=== PATIENT | female | born 1960 | race Caucasian/White ===

== ENCOUNTER 2017-02-20 18:06 | Inpatient (IN) | payer MEDICAID, OTHER ==
[2017-02-20 18:35] LABS: Glucose,Whole Blood 264 mg/dL (75-99)
--- NOTE | 2017-02-20 19:08 | ED ---
Psych HPI - General Chief Complaint: Psychiatric Symptoms Stated Complaint: Mental Health Time Seen by Provider: 02/20/17 18:34 Source: patient, family Mode of arrival: ambulatory - History of Present Illness Initial Comments: This 56-year-old white female presents with her sister for psychiatric evaluation. She barely does have a history of bipolar disorder as well as personality disorder. She apparently stopped her medications recently. The patient states she stopped them 2 days ago but her sister is the reliable historian and is unsure how long she has been off the medications. She apparently moved back to this area approximately one month ago. She's been having some extremely bizarre behavior recently. She is talking about love and spiritual this quite frequently. She apparently was having some bizarre thoughts and behaviors. She denies any suicidal or homicidal ideations. She denies any current depression. She does not feel as though she needs her medications anymore. No other complaints or modifying factors. - Related Data Home Medications Medication Instructions Recorded Confirmed Simvastatin 20 mg PO DAILY 05/09/15 05/09/15 Previous Rx's Medication Instructions Recorded Donepezil [Aricept] 5 mg PO HS #14 tab 05/10/15 Ensure Complete 1 can PO BID-W/MEALS #14 can 05/10/15 Escitalopram [Lexapro] 10 mg PO DAILY #14 tab 05/10/15 Ibuprofen [Motrin] 600 mg PO Q6HR PRN #20 tab 05/10/15 Multivitamins, Thera [Multivitamin 1 each PO DAILY@1200 #30 tab 05/10/15 (formulary)] Simvastatin [Zocor] 20 mg PO HS #14 tab 05/10/15 Thiamine [Vitamin B-1] 100 mg PO DAILY@1200 #30 tab 05/10/15 chlorproMAZINE [Thorazine] 25 mg PO BID@0800,1200 #28 tab 05/10/15 chlorproMAZINE [Thorazine] 100 mg PO HS #14 dose 05/10/15 clonazePAM [KlonoPIN] 2 mg PO DAILY@1900 #14 tab 05/10/15 Allergies Allergy/AdvReac Type Severity Reaction Status Date / Time No Known Allergies Allergy Verified 02/20/17 18:22 Review of Systems ROS Statement: Those systems with pertinent positive or pertinent negative responses have been documented in the HPI. ROS Other: All systems not noted in ROS Statement are negative. Past Medical History Past Medical History: Hyperlipidemia Additional Past Medical History / Comment(s): depression , pancreatitis History of Any Multi-Drug Resistant Organisms: None Reported Past Surgical History: Appendectomy Additional Past Surgical History / Comment(s): neck Past Psychological History: Bipolar, Depression, PTSD Smoking Status: Current every day smoker Past Alcohol Use History: None Reported Past Drug Use History: Marijuana - Past Family History Father Family Medical History: Liver Disease Additional Family Medical History / Comment(s): Father at age 78 from cirrhosis of the liver. Mother Additional Family Medical History / Comment(s): Mother is alive in her 80s and is healthy with no major medical problems. Sister(s) Additional Family Medical History / Comment(s): Patient has 2 sisters and one has from an overdose. She has 1 brother with no major medical problems. General Exam - General Exam Comments Initial Comments: GENERAL: The patient is well nourished and well hydrated. VITAL SIGNS: Heart rate, blood pressure, respiratory rate reviewed as recorded in nurse's notes. EYES: Pupils are round and reactive. Extraocular movements are intact. No conjunctival / lid redness or swelling. ENT: No external evidence of injury, swelling, or ecchymosis. Airway is patent. Throat is clear. NECK: Nontender. No swelling or evidence of injury. No subcutaneous emphysema. Trachea is midline. No thyroid mass. HEART: Regular rate and rhythm. Good peripheral pulses. LUNGS/CHEST: Breath sounds clear and equal bilaterally. No rales, rhonchi, or wheezes. No ecchymosis, subcutaneous emphysema, or tenderness. ABDOMEN: Abdomen soft without tenderness. No palpable masses or organomegaly. No peritoneal signs. No abdominal wall swelling or ecchymosis. EXTREMITIES: No extremity tenderness. Normal muscle tone and function. No thoracolumbar tenderness. NEUROLOGIC: Sensation is grossly intact. Cranial nerve exam reveals face is symmetrical, tongue is midline, speech is clear. SKIN: No abrasions or ecchymosis is noted. No induration or masses noted. PSYCHIATRIC: Alert and oriented. No overt anxiety or depression is noted. Patient has some bizarre thought processes. Limitations: no limitations Course Vital Signs 02/20/17 18:18 Temperature 98.2 F Pulse Rate 107 H Respiratory 20 Rate Blood Pressure 149/87 O2 Sat by Pulse 96 Oximetry Medical Decision Making - Medical Decision Making The patient was seen and examined. All diagnostics were reviewed. Is felt as though she is medically cleared for further psychiatric evaluation. It is felt as though she is currently undergoing a manic phase of her bipolar disorder likely due to medication noncompliance. - Lab Data Lab Results 02/20/17 02/20/17 Range/Units 18:32 19:23 POC Glucose (mg/dL) 264 H (75-99) mg/dL POC Glu [employer] ID Urine Opiates Screen Not Detected (NotDetected) Ur Oxycodone Screen Not Detected (NotDetected) Urine Methadone Screen Not Detected (NotDetected) Ur Propoxyphene Screen Not Detected (NotDetected) Ur Barbiturates Screen Not Detected (NotDetected) U Tricyclic Antidepress Not Detected (NotDetected) Ur Phencyclidine Scrn Not Detected (NotDetected) Ur Amphetamines Screen Not Detected (NotDetected) U Methamphetamines Scrn Not Detected (NotDetected) U Benzodiazepines Scrn Detected H (NotDetected) Urine Cocaine Screen Not Detected (NotDetected) U Marijuana (THC) Screen Not Detected (NotDetected) Disposition Clinical Impression: Bipolar disorder, Noncompliance with medication regimen, Giuliana Disposition: ADMITTED IP TO THIS [facility] Condition: Fair Time of Disposition: 01:06 Decision Date: 02/21/17 Decision Time: 01:06
[2017-02-20] MEDS ORDERED: LORazepam 2 MG/ML SYRINGE IV STA (21:14)
[2017-02-20] MEDS ORDERED: MAG HYDROX/AL HYDROX/SIMETH 30 ML CUP PO PRN (22:25)
[2017-02-20 22:55] LABS: Glucose,Whole Blood 209 mg/dL (75-99)
[2017-02-21] MEDS: ZIPRASIDONE 20 MG VIAL IM PRN (01:45)
[2017-02-21 06:49] LABS: Glucose,Whole Blood 237 mg/dL (75-99)
[2017-02-21] MEDS: INSULIN LISPRO (humaLOG) 300 UNIT/3 ML VIAL SQ SCH ×4 (08:50→20:40)
[2017-02-21 09:31] LABS: Basophils # (A) 0.1 k/uL (0-0.2); Basophils % (A) 1 %; CH 31.4; CHCM 33.5; Eosinophils # (A) 0.3 k/uL (0-0.7); Eosinophils % (A) 3 %; HCT 42.2 % (34.0-46.0); HDW 2.71; HGB 13.6 gm/dL (11.4-16.0); Luc # (Auto) 0.32; Luc % (Auto) 3; Lymphocytes # (A) 3.9 k/uL (1.0-4.8); Lymphocytes % (A) 35 %; MCH 30.3 pg (25.0-35.0); MCHC 32.1 g/dL (31.0-37.0); MCV 94.3 fL (80.0-100.0); Mean Platelet Volume 8.4; Monocytes # (A) 0.4 k/uL (0-1.0); Monocytes % (A) 4 %; Neutrophils % (A) 54 %; RBC 4.48 m/uL (3.80-5.40); RDW 14.5 % (11.5-15.5); WBC 11.1 k/uL (3.8-10.6); WBC (Perox) 11.02
[2017-02-21 09:55] LABS: ALT 34 U/L (9-52); AST 22 U/L (14-36); Alkaline Phosphatase 76 U/L (38-126); Anion Gap 12 mmol/L; Blood Urea Nitrogen 14 mg/dL (7-17); Calcium 9.8 mg/dL (8.4-10.2); Carbon Dioxide 23 mmol/L (22-30); Chloride 105 mmol/L (98-107); Glucose 194 mg/dL (74-99); Non-African American GFR(MDRD) >60 (>60 ml/min/1.73 sqM); Potassium 4.1 mmol/L (3.5-5.1); Sodium 140 mmol/L (137-145); Total Bilirubin 0.4 mg/dL (0.2-1.3); Total Protein 6.8 g/dL (6.3-8.2)
[2017-02-21 12:22] LABS: Hemoglobin A1C 10.8 % (4.2-6.1)
[2017-02-21] MEDS: OLANZapine 10 MG TAB PO SCH ×2 (13:00→20:40)
[2017-02-21 14:08] LABS: Glucose,Whole Blood 184 mg/dL (75-99)
--- NOTE | 2017-02-21 15:33 | P.HPMEDMHU ---
History of Present Illness H&P Date: 02/21/17 Chief Complaint: confusion Patient is a 56-year-old female with a past medical history of high blood pressure (not taking medication), diabetes mellitus type 2 (not taking medications), and dyslipidemia who was brought to the emergency department by her sister for sedation pediatric evaluation and hallucination. Consultation was requested to evaluate patient's blood sugars. Patient states that she has a history of diabetes but no longer takes anything for this. She states that she has trying "natural things" in order to treat all of her medical problems. She tells me that she is eating potatoes with coconut butter and using honey in order to combat her diabetes. I explained her that all of these items have carbs in them and would likely worsen her blood sugars. She also states that she has a history of a TIA hypertension and dyslipidemia but she is not taking medications for these. As per the chart she is taking [place], lactulose, Lantus, and Lipitor at home. Activity she denies any alcohol or illicit drug use. She states everything was fine at home and she is not sure why she is here. Review of Systems General: no fever/chills, no rigors, no weight loss/weight gain, no change in appetite Eyes: No double vision, no unusual blurry vision, no loss of vision ENT: No rhinorrhea, congestion, no trush Cardiovascular: No chest pain, no palpitations, no syncope, no edema, No paroxysmal nocturnal dyspnea, No dizziness Pulmonary: No shortness of breath, no wheezing, no cough, hemoptysis Abdominal: No abdominal pain, no constipation, no diarrhea, no vomiting, no nausea, no distention Genitourinary: No dysuria, no urinary frequency, no hematuria, no unusual discharge/odor Neuro: No unusual paresthesias, no unusual paresis/paralysis, no headache Dermatologic: No unusual rashes, no unusual lesions, no unusual changes in nails Endocrinology: No intolerance to heat/cold, no excessive thirst, no unusual fatigue Hematologic: No unusual bruising or bleeding, no unusual cervical lymphadenopathy Psychiatric: No changes in mood or behaviors, + insomnia Review of system is as per patient who is a poor historian. Past Medical History Past Medical History: CVA/TIA, Diabetes Mellitus, Hyperlipidemia Additional Past Medical History / Comment(s): depression , Chronic pancreatitis History of Any Multi-Drug Resistant Organisms: None Reported Past Surgical History: Appendectomy Additional Past Surgical History / Comment(s): neck Past Psychological History: Bipolar, Depression, PTSD Smoking Status: Unknown if ever smoked Past Alcohol Use History: None Reported Additional Past Alcohol Use History / Comment(s): Patient is a smoker of one pack per day for 30 or more years. She states she binge drinks alcohol on the weekends. She denies street drug use other than THC. Patient is single. She has one daughter that is 32 years of age. Past Drug Use History: Marijuana - Past Family History Father Family Medical History: Liver Disease Additional Family Medical History / Comment(s): Father at age 78 from cirrhosis of the liver. Mother Additional Family Medical History / Comment(s): Mother is alive in her 80s Sister(s) Family Medical History: Coronary Artery Disease (CAD), Diabetes Mellitus Additional Family Medical History / Comment(s): Patient has 2 sisters and one has from an overdose. She has 1 brother with no major medical problems. Medications and Allergies Home Medications Medication Instructions Recorded Confirmed Type Atorvastatin [Lipitor] 10 mg PO HS 02/21/17 02/21/17 History HYDROcodone/APAP 5-325MG [[place] 1 tab PO TID PRN 02/21/17 02/21/17 History 5-325] Insulin Glargine [Lantus] 10 units SQ DAILY 02/21/17 02/21/17 History Lactulose [Lactulose] 20 gm PO DAILY PRN 02/21/17 02/21/17 History Allergies Allergy/AdvReac Type Severity Reaction Status Date / Time No Known Allergies Allergy Verified 02/20/17 18:22 Physical Exam Osteopathic Statement: *. No significant issues noted on an osteopathic structural exam other than those noted in the History and Physical/Consult. Vitals: Vital Signs Temp Pulse Pulse Resp BP BP Pulse Ox 02/21/17 00:58 97.1 F L 105 H 18 125/74 02/20/17 21:45 98.3 F 94 18 143/83 99 02/20/17 18:18 98.2 F 107 H 20 149/87 96 Intake and Output 02/20/17 02/21/17 02/21/17 22:59 06:59 14:59 Other: Weight 63.503 kg 63.5 kg General: non toxic, no distress, appears at stated age, Normal weight Derm: no rashes, no lesions, no ulcers, no unusual ecchymoses Head: atraumatic, normocephalic, symmetric Eyes: EOMI, no lid lag, anicteric sclera, pupils equal round reactive to light ENT: no post nasal drip, no thrush , nearest patent, no pharyngeal erythema Neck: No thyromegaly, no cervical lymphadenopathy, trachea midline, supple Mouth: no lip lesion, mucus membranes moist Cardiovascular: S1S2 reg, no murmur, positive posterior tibial pulse bilateral, no edema , no JVD, no clubbing, no cyanosis, capillary refill less than 2 seconds Lungs: CTA bilateral, no rhonchi, no rales , no accessory muscle use Abdominal: soft, nontender to palpation, no guarding, no appreciable organomegaly, normal bowel sounds Ext: no gross muscle atrophy, muscle strength 5 out of 5 in all 4 extremities grossly, no contractures, Neuro: CN II-XI grossly intact, light touch intact all 4 extremities, finger to nose within normal limits, Psych: Alert, oriented, anxious, angry Cranial Nerve Examination - Cranial Nerves Cranial Nerve II- Optic: Intact Cranial Nerve III- Oculomotor: Intact Cranial Nerve IV- Trochlear: Intact Cranial Nerve V- Trigeminal: Intact Cranial Nerve - Abducens: Intact Cranial Nerve VII- Facial: Intact Cranial Nerve VIII- Auditory: Intact Cranial Nerve IX- Glossopharyngeal: Intact Cranial Nerve X- Vagus: Intact Cranial Nerve XI- Accessory: Intact Cranial Nerve XII- Hypoglossal: Intact Results CBC & Chem 7: 02/21/17 08:57 02/21/17 08:57 Labs: Abnormal Lab Results - Last 24 Hours (Table) 02/20/17 02/20/17 02/20/17 Range/Units 18:32 19:23 22:52 WBC (3.8-10.6) k/uL Glucose (74-99) mg/dL POC Glucose (mg/dL) 264 H 209 H (75-99) mg/dL U Benzodiazepines Scrn Detected H (NotDetected) 02/21/17 02/21/17 02/21/17 Range/Units 06:48 08:57 08:57 WBC 11.1 H (3.8-10.6) k/uL Glucose 194 H (74-99) mg/dL POC Glucose (mg/dL) 237 H (75-99) mg/dL U Benzodiazepines Scrn (NotDetected) Assessment and Plan Plan: #Diabetes mellitus type 2-patient states diet controlled, per the nurses was recently diagnosed and she was started on insulin, patient is refusing to take insulin on a long-term basis, will do a trial of metformin despite her hemoglobin A1c being 10.8 and is it will not benefit her to prescribe insulin if she refuses to take it. Continue with sliding scale insulin in the meantime. #Hypertension, controlled-was not on medications at home, follow blood pressures #Leukocytosis-check urinalysis, no signs of pneumonia, repeat CBC in 2 days #Dyslipidemia-continue statin therapy # Chronic pancreatitis- may have chronic diarrhea if so will need pancreatic enzymes Will plan on reviewing blood sugars in the morning and reevaluating the patient as needed. Zita Urena, DO
[2017-02-21 17:07] LABS: Glucose,Whole Blood 344 mg/dL (75-99)
[2017-02-21] MEDS: metFORMIN 500 MG TAB PO SCH (18:13)
[2017-02-21 20:26] LABS: Glucose,Whole Blood 138 mg/dL (75-99)
[2017-02-21] MEDS: INSULIN DETEMIR 100 UNIT/ML 10 ML VIAL SQ SCH ×2 (20:39→22:05)
[2017-02-22] MEDS ORDERED: WATER FOR INJECTION, STERILE 10 ML IV ONE (01:25)
[2017-02-22] MEDS: ZIPRASIDONE 20 MG VIAL IM PRN (01:26)
[2017-02-22 06:00] LABS: Glucose,Whole Blood 194 mg/dL (75-99)
[2017-02-22] MEDS: INSULIN LISPRO (humaLOG) 300 UNIT/3 ML VIAL SQ SCH ×4 (08:13→20:17)
[2017-02-22] MEDS: OLANZapine 10 MG TAB PO SCH ×4 (08:13→20:23)
[2017-02-22] MEDS: metFORMIN 500 MG TAB PO SCH ×3 (08:13→19:05)
[2017-02-22] MEDS: ACETAMINOPHEN TAB 325 MG TAB PO PRN ×2 (09:10→20:20)
[2017-02-22] MEDS: LORazepam 1 MG TAB PO PRN ×3 (09:12→23:26)
[2017-02-22 09:23] LABS: CH 30.4; CHCM 33.4; HCT 40.8 % (34.0-46.0); HDW 2.66; HGB 13.7 gm/dL (11.4-16.0); MCH 30.6 pg (25.0-35.0); MCHC 33.5 g/dL (31.0-37.0); MCV 91.5 fL (80.0-100.0); RBC 4.46 m/uL (3.80-5.40); RDW 13.4 % (11.5-15.5); WBC 11.9 k/uL (3.8-10.6)
[2017-02-22 12:03] LABS: Glucose,Whole Blood 268 mg/dL (75-99)
[2017-02-22] MEDS ORDERED: HALOPERIDOL LACTATE 5 MG/ML 1 ML VIAL IM STA (14:22)
[2017-02-22] MEDS ORDERED: LORazepam 2 MG/ML SYRINGE IM STA (14:23)
--- NOTE | 2017-02-22 16:33 | HP ---
HISTORY AND PHYSICAL DATE OF SERVICE: 02/21/2017. IDENTIFYING DATA: The patient is a 56-year-old female, she lives with her sister. She presented to the emergency room for evaluation. CHIEF COMPLAINT: The patient had disorganized thoughts and behaviors. She had high energy. She was acting in a bizarre manner. She made references to spiritual thoughts. She had a euphoric mood. HISTORY OF PRESENT ILLNESS: There is only limited information available. The patient provided most of her history though she was vague about the specifics. She noted that she had been living in [place] and moved back to [place] about 1 month ago. In part to connect with her mother who has Alzheimer's disease. She is residing in the home of her sister' s where her mother lives. Her daughter also lives in the home and the patient was somewhat vague about admission circumstances. When I shared with the patient information from the record and that the sister had presumably encouraged the hospitalization because of her odd disorganized behavior, the patient tended to minimize any issues. She does acknowledge that she has had a diagnosis of bipolar disorder. She said that she does have periods where she gets higher energy and a positive mood. She was vague about whether she gets abnormally euphoric or has other manic symptoms. She says she has been sleeping about 5 hours a night. She has not been on medications for 2 years. She said when she was living in [place], she felt that she was doing well from the standpoint of mental health issues. She was vague about whether not she has had significant past psychiatric intervention. She apparently had stopped taking medications in the last several days including an antidepressant Lexapro as well as medicines for her diabetes. She had acknowledged that she had stopped medications though she was vague about why she did that. According to emergency room records, she had been on Aricept 5 mg a day, Lexapro 10 mg a day, Thorazine 25 mg twice a day, 100 mg at bedtime and Klonopin 2 mg a day. It is not clear whether or not the patient was taking any of these medications since she has moved to [place]. She is admitted for further evaluation. Past medical history, review of systems and physical exam as per medical consultation Dr. López. FAMILY AND SOCIAL HISTORY: As above. MENTAL STATUS EXAM: Patient was somewhat unkempt in appearance. She had good eye contact. She was a little restless, clear. She was spontaneous and interactive. Her affect was somewhat broad. She had a mildly euphoric mood. She was appropriate in her manner and there was no indication of thought disorder. Other than she did make a number of spiritual references. She did not appear to be distressed. On cognitive exam, she was oriented x3 and alert. She did make an effort to answer formal cognitive questions. Short and long-term memory appear to be intact. Insight is questionable. Judgment uncertain. Fund of knowledge and intellectual level is average. ASSESSMENT: This 56-year-old female, who is admitted for a diagnosis of bipolar disorder. We are limited by a lack of medical records to clarify longer term psychiatric issues. Strengths include that the patient has apparently been able to manage her bipolar condition without significant episodes of regression. Weakness includes poor insight into her present situation. DIAGNOSES: 1. Bipolar affective disorder, manic phase. 2. Diabetes. 3. Hypertension. 4. Leukocytosis. 5. Dyslipidemia. 6. Rule out chronic pancreatitis. RECOMMENDATIONS: Patient will be admitted for comprehensive medical psychiatric and psychosocial evaluation. We will engage the patient in individual and group therapeutic activities I had extensive discussion with the patient regarding medication options. The patient was willing to start Zyprexa so we will initiate Zyprexa 10 mg twice a day. She has availability of p.r.n. medications. She did require IM medication on the evening of discharge due to agitation which she has not shown since. We will continue to focus on stabilization and discharge planning. MMTORYL / ALIRION: [id number] / MTDD
[2017-02-22 17:45] LABS: Glucose,Whole Blood 181 mg/dL (75-99)
[2017-02-22 20:10] LABS: Glucose,Whole Blood 240 mg/dL (75-99)
[2017-02-22] MEDS: INSULIN DETEMIR 100 UNIT/ML 10 ML VIAL SQ SCH (20:15)
[2017-02-22 23:18] LABS: Glucose,Whole Blood 210 mg/dL (75-99)
[2017-02-23 05:50] LABS: Glucose,Whole Blood 186 mg/dL (75-99)
[2017-02-23] MEDS: INSULIN LISPRO (humaLOG) 300 UNIT/3 ML VIAL SQ SCH ×4 (07:52→21:07)
[2017-02-23] MEDS: metFORMIN 500 MG TAB PO SCH ×2 (07:54→17:19)
[2017-02-23] MEDS: OLANZapine 10 MG TAB PO SCH ×3 (09:07→21:11)
--- NOTE | 2017-02-23 11:10 | PN ---
PROGRESS NOTE DATE OF SERVICE: 02/22/2017. INTERVAL HISTORY: Patient has been doing fair. She has exhibited significant manic symptoms. She slept poorly last night. Late at night she was up in the rios. She was quite loud. She was agitated. She was restless and she had difficulty responding to staff support. She did receive IM medication last night. She did respond appropriately to the medication. Today she has been up and about. She wanders. She gets intense in her manner. She is hyperverbal. She has had a couple situations on the unit were she got into some arguments with other patients. She has hit some sense of nonstop talking. She tends to have loose association. She does not talk in a rapid manner though she will just verbalize one thing or another in a persistent manner. She became increasingly distressed today and also received an injection of Haldol and Ativan. She seemed to respond fairly well to that. She has not had change in her general health. She tolerates her psychotropic medications. MENTAL STATUS: The patient gave fair eye contact. She was restless. Her thoughts were disorganized and at times, disconnected from the subject at hand. Her affect was intense. Her mood dysphoric. She was moderately distressed. ASSESSMENT AND PLAN: I will continue the current diagnosis and treatment plan. I will increase Zyprexa to 10 mg 3 times a day. We may need to consider addition of either lithium or Haldol. We will be making contact with the family to get further information about her longer-term history. I will continue to focus on stabilization and discharge planning. MARCOS / ALIRION: [id number] / GABBIE
[2017-02-23 12:22] LABS: Glucose,Whole Blood 188 mg/dL (75-99)
[2017-02-23] MEDS: ACETAMINOPHEN TAB 325 MG TAB PO PRN (14:34)
[2017-02-23] MEDS: LORazepam 1 MG TAB PO PRN (17:20)
[2017-02-23 17:23] LABS: Glucose,Whole Blood 175 mg/dL (75-99)
[2017-02-23 20:16] LABS: Glucose,Whole Blood 183 mg/dL (75-99)
[2017-02-23] MEDS: INSULIN DETEMIR 100 UNIT/ML 10 ML VIAL SQ SCH (21:08)
--- NOTE | 2017-02-24 05:40 | PN ---
PROGRESS NOTE DATE OF SERVICE: 02/23/2017 CHIEF COMPLAINT: The patient had disorganized thoughts and behavior. She had high energy. She was acting in a bizarre manner. She made references to spiritual thoughts. She had euphoric mood. INTERVAL HISTORY: Patient has been doing fair. She had some difficulties in her behavior yesterday where she was over energized, intrusive and intense in her manner. It is noteworthy that the night before she slept very poorly. She did receive p.r.n. IM medications yesterday. Last night, she slept better. Today she has been up and about. She attends some groups, but does not attend others. She will socialize with some other patients and seems to be comfortable with that. On the other, she has had a little more containment in some of her more intense behavior. She attends some groups though not others. She still can be somewhat obsessive and intense in her manner at times. She seems to be more redirectable. She was hopeful about being discharged soon such as today though when I indicated we would not be discharging her until sometime next week, she did not seem to have any resistance to that. She does understand we will be making reference to coordinate a family meeting with her sister which will be important part of her treatment. The patient was in agreement with that. She has not had change in her general health. She tolerates her psychotropic medications. MENTAL STATUS: Patient gave fair eye contact. She was restless. Her thoughts were clear. She did tend to ramble some. Her mood was mildly euphoric. Her affect expansive. She did not appear to be distressed. ASSESSMENT: I will continue the current diagnosis and treatment plan. I will continue psychotropic medications the same. Patient appears to be making some progress with reduction in manic behaviors and symptoms. We will continue to focus on stabilization and discharge planning. MMODL / IJN: [id number] /
[2017-02-24 06:25] LABS: Glucose,Whole Blood 179 mg/dL (75-99)
[2017-02-24] MEDS: OLANZapine 10 MG TAB PO SCH ×3 (08:38→20:06)
[2017-02-24] MEDS: INSULIN LISPRO (humaLOG) 300 UNIT/3 ML VIAL SQ SCH ×4 (08:38→20:08)
[2017-02-24] MEDS: metFORMIN 500 MG TAB PO SCH ×2 (08:38→17:35)
[2017-02-24 09:57] LABS: Appearance,Urine Clear (Clear); Bilirubin,Urine Negative (Negative); Glucose,Urine (UA) 4+ (Negative); Ketones,Urine Negative (Negative); Leukocyte Esterase,Urine Negative (Negative); Nitrite,Urine Negative (Negative); PH, Urine 6.5 (5.0-8.0); Protein,Urine Negative (Negative); Specific Gravity,Urine 1.005 (1.001-1.035); UA Billing (MACRO vs. MICRO) CHEM; Urobilinogen,Urine <2.0 mg/dL (<2.0)
[2017-02-24] MEDS: LITHIUM CARBONATE 300 MG CAP PO SCH ×2 (11:05→20:06)
[2017-02-24 12:51] LABS: Glucose,Whole Blood 178 mg/dL (75-99)
[2017-02-24] MEDS: LORazepam 1 MG TAB PO PRN (14:14)
--- NOTE | 2017-02-24 15:56 | PN ---
PROGRESS NOTE DATE OF SERVICE: 02/24/2017. CHIEF COMPLAINT: The patient had disorganized thoughts and behavior. She had high energy. She was acting in a bizarre manner. She made references to spiritual thoughts. She had euphoric mood. INTERVAL HISTORY: Patient has been doing fair. She only slept a few hours last night. She continues to be somewhat energetic and intense in her manner. She can be intrusive. Overall she does seem to be a little more contained in some of these behaviors. She does respond to staff support and redirection. She has some ups and downs in her mood. She was able to review some discharge planning issues. She continues to push towards the idea of early discharge though understands that she is likely to not be discharged until the middle of next week at the earliest. She states that she had been on lithium in the past though she was unable to give particulars about that. She has not had change in her general health. She tolerates the psychotropic medications. MENTAL STATUS: Patient gave good eye contact. She was restless. Her thoughts were clear, though she tended to ramble some. There was some pressured speech. She had a expansive affect. Her mood was mildly euphoric. It was difficult to say was distressed. ASSESSMENT: I will continue the current diagnosis and the treatment plan. I will start the patient on lithium 600 mg twice a day. Continue Zyprexa 10 mg 3 times a day. I will check a lithium level in 2 days. It is noted that her creatinine level on February 21 was 0.58. We will continue to focus on stabilization and discharge planning. MMTORYL / ALIRION: [id number] /
[2017-02-24 17:31] LABS: Glucose,Whole Blood 152 mg/dL (75-99)
[2017-02-24 20:03] LABS: Glucose,Whole Blood 258 mg/dL (75-99)
[2017-02-24] MEDS: INSULIN DETEMIR 100 UNIT/ML 10 ML VIAL SQ SCH (20:06)
[2017-02-24] MEDS: traZODone HCL 100 MG TAB PO SCH (21:43)
[2017-02-25 06:18] LABS: Glucose,Whole Blood 250 mg/dL (75-99)
[2017-02-25] MEDS: INSULIN LISPRO (humaLOG) 300 UNIT/3 ML VIAL SQ SCH ×4 (08:32→19:55)
[2017-02-25] MEDS: LITHIUM CARBONATE 300 MG CAP PO SCH ×2 (08:35→19:57)
[2017-02-25] MEDS: metFORMIN 500 MG TAB PO SCH ×2 (08:35→17:56)
[2017-02-25] MEDS: OLANZapine 10 MG TAB PO SCH ×3 (08:36→19:57)
[2017-02-25 11:11] LABS: Glucose,Whole Blood 339 mg/dL (75-99)
[2017-02-25 12:59] LABS: Glucose,Whole Blood 256 mg/dL (75-99)
--- NOTE | 2017-02-25 15:09 | PN ---
PROGRESS NOTE DATE OF SERVICE: 02/25/2017. CHIEF COMPLAINT: The patient had disorganized thoughts and behavior. She had high energy. She was acting in a bizarre manner. She made references to spiritual thoughts. She had euphoric mood. INTERVAL HISTORY: Patient has been doing fair. She reports that she slept better last night. She continues to be somewhat on edge where she can be fine one moment though easily get irritated. She declined her insulin on the sliding scale. Today she tells me that she thought she was only supposed to do one or the other. As far as metformin versus insulin. She had been advised in this matter each day previously that she had not been attending to her diabetes. Her blood sugar today was 250. She continues to be fairly impulsive and at times intrusive.. Her mood is somewhat more settled. She tolerates psychotropic medications. MENTAL STATUS: The patient gave good eye contact. She was restless. Her thoughts were clear. Her affect was intense. Her mood expansive. She was moderately distressed. ASSESSMENT: I will continue the current diagnosis treatment plan. She continues on Zyprexa and lithium for her bipolar juan. A lithium level will be drawn in the morning. She continues to be manic. We will continue to focus on stabilization and discharge planning. MMODL / IJN: [id number] /
[2017-02-25] MEDS: ACETAMINOPHEN TAB 325 MG TAB PO PRN (16:50)
[2017-02-25 17:42] LABS: Glucose,Whole Blood 148 mg/dL (75-99)
[2017-02-25 19:53] LABS: Glucose,Whole Blood 344 mg/dL (75-99)
[2017-02-25] MEDS: INSULIN DETEMIR 100 UNIT/ML 10 ML VIAL SQ SCH (19:54)
[2017-02-25] MEDS: traZODone HCL 100 MG TAB PO SCH (19:57)
[2017-02-25 21:00] LABS: Glucose,Whole Blood 250 mg/dL (75-99)
[2017-02-26] MEDS: ACETAMINOPHEN TAB 325 MG TAB PO PRN (04:05)
[2017-02-26 06:13] LABS: Glucose,Whole Blood 206 mg/dL (75-99)
[2017-02-26 07:02] VITALS: RESP 16
[2017-02-26] MEDS: INSULIN LISPRO (humaLOG) 300 UNIT/3 ML VIAL SQ SCH ×4 (08:27→20:32)
[2017-02-26] MEDS: OLANZapine 10 MG TAB PO SCH ×3 (08:28→21:02)
[2017-02-26] MEDS: LITHIUM CARBONATE 300 MG CAP PO SCH ×2 (08:28→20:35)
[2017-02-26] MEDS: metFORMIN 500 MG TAB PO SCH ×2 (08:28→17:47)
[2017-02-26 12:05] LABS: Glucose,Whole Blood 110 mg/dL (75-99)
--- NOTE | 2017-02-26 16:13 | PN ---
PROGRESS NOTE/TRANSFER NOTE DATE OF SERVICE: 02/26/2017. CHIEF COMPLAINT: The patient had disorganized thoughts and behavior. She had high energy. She was acting in a bizarre manner. She made references to spiritual thoughts. She had euphoric mood. SUMMARY: The patient was admitted for manic symptoms, which included things like not taking medicines for her diabetes. Her sister petitioned her for hospitalization. Her sister is her primary support. At the time of discharge this sister has agreed that she could come and live with the sister for about 3 days but then would need to find alternative housing. The patient has been improving in regards to juan. Blood sugars continued to fluctuate. She may be able to be discharged by the end of the week. A plan is in place to have a another family meeting with the sister as part of discharge planning. INTERVAL HISTORY: The patient has been doing fair. She seems to be gradually doing better in terms of her manic symptoms. She continues to be intrusive and somewhat active on the unit. Overall this is better. She is a little calmer, though she still can be fairly intense in her manner. She is very focused on when she can be discharged and we will have the expectation that she can be discharged on any day. This is in spite of the fact that she continues to show some manic symptoms. Also this morning her blood sugar at 4 a.m. was 206, yesterday at midnight it was 250 and yesterday at 4 p.m. it was 344. She has not had other change in her general health. She tolerates psychotropic medications. [place] had been recently added to her medication regimen and needs to be monitored for lithium levels. MENTAL STATUS: Patient gave good eye contact. She was a little restless. Her thoughts were clear. She was interactive. Her affect was somewhat intense. Her mood was mildly euphoric. She was not distressed. There was no indication of thought disorder. ASSESSMENT: Continue the current diagnosis and treatment plan. We will continue psychotropic medications the same. I have just initiated lithium in addition to her Zyprexa for bipolar disorder. Her lithium level today is 1.0, I will repeat a lithium level for tomorrow. We will continue to focus on stabilization and discharge planning, aiming for discharge by the end of the week. MMODL / IJN: [id number] / [facility]
[2017-02-26 17:33] LABS: Glucose,Whole Blood 263 mg/dL (75-99)
[2017-02-26 20:13] LABS: Glucose,Whole Blood 257 mg/dL (75-99)
[2017-02-26] MEDS: INSULIN DETEMIR 100 UNIT/ML 10 ML VIAL SQ SCH (20:32)
[2017-02-26] MEDS: traZODone HCL 100 MG TAB PO SCH (20:35)
[2017-02-26] MEDS: MAGNESIUM HYDROXIDE 2,400 MG/10 ML CUP PO PRN (21:02)
[2017-02-26] MEDS ORDERED: INSULIN DETEMIR 100 UNIT/ML 10 ML VIAL SQ ONE (21:45)
[2017-02-26 22:08] LABS: Glucose,Whole Blood 117 mg/dL (75-99)
[2017-02-27 05:26] LABS: Glucose,Whole Blood 164 mg/dL (75-99)
[2017-02-27] MEDS: INSULIN LISPRO (humaLOG) 300 UNIT/3 ML VIAL SQ SCH ×4 (07:42→21:27)
[2017-02-27] MEDS: MAGNESIUM HYDROXIDE 2,400 MG/10 ML CUP PO PRN ×2 (07:46→16:04)
[2017-02-27] MEDS: metFORMIN 500 MG TAB PO SCH ×2 (07:46→17:38)
[2017-02-27] MEDS: OLANZapine 10 MG TAB PO SCH ×3 (08:51→21:27)
[2017-02-27] MEDS: LITHIUM CARBONATE 300 MG CAP PO SCH ×2 (08:52→21:27)
[2017-02-27 09:06] VITALS: BMI 23.6
[2017-02-27] MEDS: LORazepam 1 MG TAB PO PRN (09:48)
[2017-02-27 12:24] LABS: Glucose,Whole Blood 121 mg/dL (75-99)
[2017-02-27 17:44] LABS: Glucose,Whole Blood 168 mg/dL (75-99)
--- NOTE | 2017-02-27 18:37 | P.PN ---
Subjective Principal diagnosis: PRIMARY DIAGNOSIS: Bipolar 1 disorder most recent episode manic moderate with psychotic features INTERVAL HISTORY: Patient was admitted to the inpatient behavioral health after a petition by her sister after an acute manic episode due to stopping her outpatient regimen. Patient has a chronic history of noncompliance. Patient is able to endorse a clear history of recent juan including running in her streets with elevated mood, euphoria, grandiosity and hoahaoism delusions. During her hospital course patient was initially agitated and is required emergency medication on several occurrences but currently is calm well organized and focused on discharge. Patient is goal oriented. Patient is compliant with her medication regimen and patient denies any adverse side effects to her medications and reports an improvement in her stomach pain previously reported to be due to chronic pancreatitis. Significant time was spent during today's interview to educate patient on the risks of Zyprexa in patients with type 2 diabetes. After an extensive discussion patient decided it was in her best interest to continue Zyprexa. At this time patient denies suicidal ideation and homicidal ideation and auditory visual hallucinations she exhibits no manic behavior. Objective - Vital Signs Vital signs: Vital Signs Temp 97.8 F 02/27/17 07:09 Pulse 125 H 02/27/17 07:09 Resp 16 02/27/17 07:09 BP 122/84 02/27/17 07:09 Pulse Ox 99 02/20/17 21:45 Intake & Output 02/26/17 02/27/17 02/27/17 18:59 06:59 18:59 Weight 64.4 kg - Psychiatric Psychiatric Comment(s): MENTAL STATUS EXAM: Appearance: Alert, well-groomed, appears olderthan stated age, poor dentition, steady gait Behavior: No psychomotor agitation or psychomotor retardation, fair eye contact Attitude: Cooperative, upbeat Speech: Normal rate, rhythm, and fluency as expected and it is sutured Swedish with some difficulty in articulation due to poor dentition Mood: Euthymic (I feel back to normal) Affect: Appropriate, mood congruent, full range Thought processes: Linear, organized Thought content: Patient does not appear to be responding to internal stimuli, patient denies auditory and visual hallucinations, previous delusions have resolved Insight: Fair Judgment: Historically poor at present fair Cognitive: Oriented to all 4 spheres - Labs CBC & Chem 7: 02/22/17 08:44 02/21/17 08:57 Labs: Abnormal Lab Results - Last 24 Hours (Table) 02/26/17 02/26/17 02/27/17 Range/Units 20:11 22:07 05:24 POC Glucose (mg/dL) 257 H 117 H 164 H (75-99) mg/dL 02/27/17 Range/Units 12:20 POC Glucose (mg/dL) 121 H (75-99) mg/dL Assessment and Plan Plan: ASSESSMENT: Bipolar 1 disorder most recent episode manic with psychotic features PLAN: 1. Continue current treatment regimen 2. Discuss discharge options with treatment team tomorrow 3. Patient will need outpatient referrals to psychiatry and family medicine ( she currently has no PCP) and diabetic counseling 4. Patient was stabilized on Zyprexa + [place] and patient has done well with a resolution of manic symptoms; however the risks associated with the use of Zyprexa in type 2 diabetes were explained to patient in full detail. Patient opted to continue Zyprexa therapy and will discuss alternative options with her outpatient psychiatrist post discharge. 5. Patient was educated on the importance of treatment compliance and she agreed to take all of her medications as prescribed and to follow-up to her referrals as scheduled
[2017-02-27 20:29] LABS: Glucose,Whole Blood 168 mg/dL (75-99)
[2017-02-27] MEDS ORDERED: INSULIN DETEMIR 100 UNIT/ML 10 ML VIAL SQ SCH (21:00)
[2017-02-27] MEDS: traZODone HCL 100 MG TAB PO SCH (21:28)
[2017-02-27] MEDS ORDERED: NA PHOS,M-B/NA PHOS,DI-BA 133 ML ENEMA RECTAL STA (23:31)
[2017-02-28 06:24] LABS: Glucose,Whole Blood 141 mg/dL (75-99)
[2017-02-28 07:28] VITALS: BP 125/80; PULSE 81; TEMP 97.7
[2017-02-28] MEDS: LORazepam 1 MG TAB PO PRN ×2 (07:58→15:12)
[2017-02-28] MEDS: LITHIUM CARBONATE 300 MG CAP PO SCH (07:58)
[2017-02-28] MEDS: OLANZapine 10 MG TAB PO SCH ×2 (07:59→16:40)
[2017-02-28] MEDS: metFORMIN 500 MG TAB PO SCH ×2 (07:59→17:21)
[2017-02-28] MEDS: INSULIN LISPRO (humaLOG) 300 UNIT/3 ML VIAL SQ SCH ×3 (08:00→17:22)
[2017-02-28 12:44] LABS: Glucose,Whole Blood 110 mg/dL (75-99)
[2017-02-28 17:24] LABS: Glucose,Whole Blood 137 mg/dL (75-99)
--- NOTE | 2017-02-28 19:14 | P.DS ---
Providers Date of admission: 02/20/17 21:03 Expected date of discharge: 02/28/17 Attending physician: Gerson Bradley DO Consults: 02/20/17 22:25 Consult Physician Routine Consulting Provider: James Ortiz Consult Reason/Comments: H&P and medical follow up Do you want consulting provider notified?: Yes Primary care physician: Sonu Abraham - Discharge Diagnosis(es) (1) Bipolar I disorder, current or most recent episode manic, with psychotic features Patient is a 56-year-old female who presented to the emergency room by her sister due to concerns of her uncontrolled type 2 diabetes and recent manic behaviors. Patient has a history of chronic noncompliance and was acting bizarrely trying to treat her diabetes with coconut butter and on the end of her various strange "cures"that she received from a neighbor. Patient is able to clearly endorse a recent manic episode with elevated expansive mood, grandiosity, feeling on top of the world, congregational delusions and seeing spirits , engaging in dangerous behavior such as walking in her local streets. Patient endorses a diagnosis of multiple mental illnesses including dementia, personality disorder, bipolar disorder, stimulant use disorder and crack cocaine type. Patient's medical record is also significant for a remote history of alcoholism the patient denies drinking for the last 5+ years Current Visit: Yes Status: Resolved Priority: High Onset Date: ~01/23/17 Hospital Course: Patient presented to unit floridly manic with several instances of emergency medication. Since lithium was increased to 600 mg twice a day and she was titrated on Zyprexa up to 5 mg 3 times a day and her juan was resolved at time of discharge. During hospitalization patient actively participated in groups. Most recent lithium level was therapeutic at 1.1. Creatinine was 5.8. Most recent hemoglobin A1c was 10.8 Most recent TSH was 2.56. Labs and vital signs were otherwise within normal limits. Patient was stabilized on Zyprexa during his hospital course. The risks and benefits of such were discussed at length with the patient given her diagnosis of type 2 diabetes. Patient decided to continue Zyprexa and discuss future treatment with her outpatient psychiatrist post discharge. At time of discharge patient is calm, euthymic, no residual symptoms of juan are present. Disposition at discharge is stable, patient will discharge home to be with her sister. At time of discharge patient denied suicidal ideation, homicidal ideation, auditory and visual hallucinations. MENTAL STATUS EXAM: Appearance: Alert, well groomed, appears older than stated age, poor dentition, steady gait Behavior: psychomotor agitation or psychomotor retardation, fair eye contact Attitude: Cooperative Speech: Normal rate, rhythm, and fluency; articulation impaired due to poor dentition; primary language: Welsh Mood: Euthymic Affect: Appropriate, mood congruent, full range Thought processes: Linear, organized Thought content: Patient does not appear to be responding to internal stimuli; patient denies auditory and visual hallucinations, no delusional content noted Insight: fair Judgment: fair Cognitive: Oriented to all 4 spheres, normal intelligence Patient Condition at Discharge: Fair Plan - Discharge Summary New Discharge Prescriptions: [place] Carbonate 600 mg PO BID #28 cap metFORMIN HCL [Glucophage] 500 mg PO BID-W/MEALS #0 tab OLANZapine [ZyPREXA] 10 mg PO TID #42 tab traZODone HCL [Desyrel] 100 mg PO HS #14 tab Discontinued HYDROcodone/APAP 5-325MG [[place] 5-325] 1 tab PO TID PRN PRN Reason: Pain No Action Insulin Glargine [Lantus] 10 unit SQ DAILY Discharge Medication List Insulin Glargine [Lantus] 10 unit SQ DAILY 02/28/17 [History] [place] Carbonate 600 mg PO BID #28 cap 02/28/17 [Rx] OLANZapine [ZyPREXA] 10 mg PO TID #42 tab 02/28/17 [Rx] metFORMIN HCL [Glucophage] 500 mg PO BID-W/MEALS #0 tab 02/28/17 [Rx] traZODone HCL [Desyrel] 100 mg PO HS #14 tab 02/28/17 [Rx] Follow up Appointment(s)/Referral(s): [facility] [Outside] - 03/07/17 1:00 pm (Intake 03/07/17 at 1:00 pm with Hedy) Sonu Abraham MD [Primary Care Provider] - 1-2 days Patient Instructions/Handouts: Depression (DC), Type 2 Diabetes in Adults (DC) , Suicide Prevention for Adults (DC) Activity/Diet/Wound Care/Special Instructions: 1. No restrictions on activity 2. Diabetic diet Discharge Disposition: HOME SELF-CARE
== END 2017-02-28 18:20 | disposition home or self-care (01) | DRG 885 ==
LOC: EC 18:06 → 3MHU 21:03
PROVIDERS: ADMIT Psychiatry & Neurology Psychiatry; ATTEND Psychiatry & Neurology Psychiatry
DX: F31.2 Bipolar disorder, current episode manic severe with psychotic features (principal); F03.90 Unspecified dementia, unspecified severity, without behavioral disturbance, psychotic disturbance, mood disturbance, and anxiety; E11.9 Type 2 diabetes mellitus without complications; K86.1 Other chronic pancreatitis; D72.829 Elevated white blood cell count, unspecified; E78.5 Hyperlipidemia, unspecified; I10 Essential (primary) hypertension; F60.9 Personality disorder, unspecified; F17.200 Nicotine dependence, unspecified, uncomplicated; F43.10 Post-traumatic stress disorder, unspecified; Z79.899 Other long term (current) drug therapy; Z82.0 Family history of epilepsy and other diseases of the nervous system; Z91.14 Patient's other noncompliance with medication regimen; Z91.19 Patient's noncompliance with other medical treatment and regimen; Z79.4 Long term (current) use of insulin
CPT/HCPCS: 36415; 80053; 80178; 80306; 81003; 83036; 84443; 85025; 85027; 96374; 99285

== ENCOUNTER 2017-05-04 08:16 | Emergency (ER) | payer OTHER ==
[2017-05-04 08:21] VITALS: RESP 18
[2017-05-04] MEDS ORDERED: ONDANSETRON 4 MG/2 ML VIAL IVP STA (08:27)
[2017-05-04] MEDS ORDERED: SODIUM CHLORIDE 0.9% 1,000 ML IV STA (08:27)
[2017-05-04] MEDS ORDERED: HYDROmorphone 1 MG/ML 1 ML SYRINGE IVP STA (08:27)
--- NOTE | 2017-05-04 08:30 | ED ---
General Adult HPI - General Chief complaint: Abdominal Pain Stated complaint: PANCREATITIS FLAIR Time Seen by Provider: 05/04/17 08:22 Source: patient, RN notes reviewed Mode of arrival: ambulatory Limitations: no limitations - History of Present Illness Initial comments: Patient a 56-year-old female with significant past medical history for pericarditis, who presents emergency room today with a chief complaint of increased abdominal pain that started this morning after drinking coffee. She does admit that she feels nauseated and has pain located in epigastric which radiates around to her back. She states the symptoms are consistent with pancreatitis that she's had in the past. She states she is a recovering alcoholic has been sober for the last 2 years. Patient denies any other complaints or symptoms. Patient denies any recent fever, chills, shortness of breath, chest pain, numbness or tingling, dysuria or hematuria, constipation or diarrhea, headaches or visual changes, or any other complaints. - Related Data Home Medications Medication Instructions Recorded Confirmed Insulin Glargine [Lantus] 15 unit SQ HS 02/28/17 05/04/17 [id number] 1 tab PO Q4HR PRN 05/04/17 05/04/17 [Excedrin] Cephalexin [Keflex] 500 mg PO Q12HR 05/04/17 05/04/17 Glimepiride [Amaryl] 1 mg PO BID 05/04/17 05/04/17 Insulin Aspart [NovoLOG 2 unit SQ TID-W/MEALS 05/04/17 05/04/17 (formulary)] L.acidoph,Paracasei, B.lactis 1 cap PO DAILY 05/04/17 05/04/17 [Probiotic] OXcarbazepine 600 mg PO TID 05/04/17 05/04/17 QUEtiapine [SEROquel] 100 mg PO BID 05/04/17 05/04/17 QUEtiapine [SEROquel] 300 mg PO HS 05/04/17 05/04/17 hydrOXYzine HCL 25 mg PO DAILY 05/04/17 05/04/17 metFORMIN HCL [Glucophage] 500 mg PO BID 05/04/17 05/04/17 Previous Rx's Medication Instructions Recorded Famotidine [Pepcid] 20 mg PO BID #20 tablet 05/04/17 Ondansetron Odt [Zofran ODT] 4 mg PO Q8HR PRN #20 tab 05/04/17 Allergies Allergy/AdvReac Type Severity Reaction Status Date / Time No Known Allergies Allergy Verified 05/04/17 08:44 Review of Systems ROS Statement: Those systems with pertinent positive or pertinent negative responses have been documented in the HPI. ROS Other: All systems not noted in ROS Statement are negative. Past Medical History Past Medical History: CVA/TIA, Diabetes Mellitus, Hyperlipidemia Additional Past Medical History / Comment(s): depression , Chronic pancreatitis History of Any Multi-Drug Resistant Organisms: None Reported Past Surgical History: Appendectomy Additional Past Surgical History / Comment(s): neck Past Psychological History: Bipolar, Depression, PTSD Smoking Status: Current every day smoker Past Alcohol Use History: Abuse Past Drug Use History: Marijuana - Past Family History Father Family Medical History: Liver Disease Additional Family Medical History / Comment(s): Father at age 78 from cirrhosis of the liver. Mother Additional Family Medical History / Comment(s): Mother is alive in her 80s Sister(s) Family Medical History: Coronary Artery Disease (CAD), Diabetes Mellitus Additional Family Medical History / Comment(s): Patient has 2 sisters and one has from an overdose. She has 1 brother with no major medical problems. General Exam - General Exam Comments Initial Comments: General: The patient is awake and alert, in no distress, and does not appear acutely ill. Eye: Pupils are equal, round and reactive to light, extra-ocular movements are intact. No nystagmus. There is normal conjunctiva bilaterally. No signs of icterus. Ears, nose, mouth and throat: There are moist mucous membranes and no oral lesions. Neck: The neck is supple, there is no tenderness or JVD. Cardiovascular: There is a regular rate and rhythm. No murmur, rub or gallop is appreciated. Respiratory: Lungs are clear to auscultation, respirations are non-labored, breath sounds are equal. No wheezes, stridor, rales, or rhonchi. Gastrointestinal: Normal appearance. The patient. Patient does have tenderness to the epigastric. No rebound tenderness. No guarding. Musculoskeletal: Normal ROM, no tenderness. Strength 5/5. Sensation intact. Pulses equal bilaterally 2+. Neurological: A&O x 3. CN II-XII intact, There are no obvious motor or sensory deficits. Coordination appears grossly intact. Speech is normal. Skin: Skin is warm and dry and no rashes or lesions are noted. Psychiatric: Cooperative, appropriate mood & affect, normal judgment. Limitations: no limitations Course Vital Signs 05/04/17 05/04/17 08:17 09:04 Temperature 98.0 F Pulse Rate 90 71 Respiratory 18 18 Rate Blood Pressure 149/90 116/63 O2 Sat by Pulse 100 99 Oximetry Medical Decision Making - Medical Decision Making Patient reexamined at this time shows no signs of distress. She states the symptoms feel consistent with a pancreatitis that she's had in the past. She denies any new symptoms. He mostly present this time are negative. She was with the symptoms just started this morning. Was discussed that this could be early for her pancreatitis. At this time she's feeling comfortable and is okay being discharged home. She will be given medications of Pepcid along with Zofran for her nausea. Advised follow-up the family doctor the next 2 days. Advised return here to the emergency room if her symptoms increase or worsen. Patient states understanding and is in agreement with this plan. - Lab Data Result diagrams: 05/04/17 08:41 05/04/17 08:41 Lab Results 05/04/17 05/04/17 05/04/17 Range/Units 08:41 08:41 08:41 WBC 11.7 H (3.8-10.6) k/uL RBC 4.56 (3.80-5.40) m/uL Hgb 13.7 (11.4-16.0) gm/dL Hct 42.4 (34.0-46.0) % MCV 93.0 (80.0-100.0) fL MCH 30.0 (25.0-35.0) pg MCHC 32.3 (31.0-37.0) g/dL RDW 13.9 (11.5-15.5) % Plt Count 382 (150-450) k/uL Neutrophils % 65 % Lymphocytes % 26 % Monocytes % 3 % Eosinophils % 3 % Basophils % 1 % Neutrophils # 7.7 (1.3-7.7) k/uL Lymphocytes # 3.0 (1.0-4.8) k/uL Monocytes # 0.4 (0-1.0) k/uL Eosinophils # 0.4 (0-0.7) k/uL Basophils # 0.1 (0-0.2) k/uL Sodium 139 (137-145) mmol/L Potassium 4.3 (3.5-5.1) mmol/L Chloride 104 (98-107) mmol/L Carbon Dioxide 23 (22-30) mmol/L Anion Gap 12 mmol/L BUN 8 (7-17) mg/dL Creatinine 0.55 (0.52-1.04) mg/dL Est GFR (MDRD) Af Amer >60 (>60 ml/min/1.73 sqM) Est GFR (MDRD) Non-Af >60 (>60 ml/min/1.73 sqM) Glucose 194 H (74-99) mg/dL Calcium 9.9 (8.4-10.2) mg/dL Total Bilirubin 0.2 (0.2-1.3) mg/dL AST 17 (14-36) U/L ALT 31 (9-52) U/L Alkaline Phosphatase 87 (38-126) U/L Total Protein 7.7 (6.3-8.2) g/dL Albumin 4.4 (3.5-5.0) g/dL Amylase 50 (30-110) U/L Lipase 264 (23-300) U/L Urine Color Light Yellow Urine Appearance Clear (Clear) Urine pH 6.5 (5.0-8.0) Ur Specific [place] 1.007 (1.001-1.035) Urine Protein Negative (Negative) Urine Glucose (UA) Negative (Negative) Urine Ketones Negative (Negative) Urine Blood Negative (Negative) Urine Nitrite Negative (Negative) Urine Bilirubin Negative (Negative) Urine Urobilinogen <2.0 (<2.0) mg/dL Ur Leukocyte Esterase Negative (Negative) Disposition Clinical Impression: Abdominal pain Disposition: HOME SELF-CARE Condition: Good Instructions: Abdominal Pain (ED) Additional Instructions: Please use medication as discussed. Please follow-up with family doctor in the next 2 days of symptoms have not improved. Please return to emergency room if the symptoms increase or worsen or for any other concerns. Prescriptions: Famotidine [Pepcid] 20 mg PO BID #20 tablet Ondansetron Odt [Zofran ODT] 4 mg PO Q8HR PRN #20 tab PRN Reason: Nausea Referrals: Franki Coronel MD [Primary Care Provider] - 1-2 days Time of Disposition: 09:31
[2017-05-04 08:54] LABS: Appearance,Urine Clear (Clear); Bilirubin,Urine Negative (Negative); Glucose,Urine (UA) Negative (Negative); Ketones,Urine Negative (Negative); Leukocyte Esterase,Urine Negative (Negative); Nitrite,Urine Negative (Negative); PH, Urine 6.5 (5.0-8.0); Protein,Urine Negative (Negative); Specific Gravity,Urine 1.007 (1.001-1.035); UA Billing (MACRO vs. MICRO) CHEM; Urobilinogen,Urine <2.0 mg/dL (<2.0)
[2017-05-04 08:56] LABS: Basophils # (A) 0.1 k/uL (0-0.2); Basophils % (A) 1 %; CH 29.6; Eosinophils # (A) 0.4 k/uL (0-0.7); Eosinophils % (A) 3 %; HCT 42.4 % (34.0-46.0); HDW 2.42; HGB 13.7 gm/dL (11.4-16.0); Luc # (Auto) 0.21; Luc % (Auto) 2; Lymphocytes % (A) 26 %; MCHC 32.3 g/dL (31.0-37.0); Mean Platelet Volume 8.3; Monocytes # (A) 0.4 k/uL (0-1.0); Monocytes % (A) 3 %; Neutrophils # (A) 7.7 k/uL (1.3-7.7); Neutrophils % (A) 65 %; RBC 4.56 m/uL (3.80-5.40); RDW 13.9 % (11.5-15.5); WBC 11.7 k/uL (3.8-10.6); WBC (Perox) 11.43
[2017-05-04 09:06] LABS: ALT 31 U/L (9-52); AST 17 U/L (14-36); Alkaline Phosphatase 87 U/L (38-126); Amylase 50 U/L (30-110); Anion Gap 12 mmol/L; Blood Urea Nitrogen 8 mg/dL (7-17); Calcium 9.9 mg/dL (8.4-10.2); Carbon Dioxide 23 mmol/L (22-30); Chloride 104 mmol/L (98-107); Glucose 194 mg/dL (74-99); Non-African American GFR(MDRD) >60 (>60 ml/min/1.73 sqM); Potassium 4.3 mmol/L (3.5-5.1); Sodium 139 mmol/L (137-145); Total Bilirubin 0.2 mg/dL (0.2-1.3); Total Protein 7.7 g/dL (6.3-8.2)
[2017-05-04 09:44] VITALS: BP 131/75; PULSE 84; TEMP 96.9
== END 2017-05-04 09:44 | disposition home or self-care (01) ==
LOC: EC 08:16
DX: R10.13 Epigastric pain (principal); R11.0 Nausea; E11.9 Type 2 diabetes mellitus without complications; E78.5 Hyperlipidemia, unspecified; F31.9 Bipolar disorder, unspecified; F17.200 Nicotine dependence, unspecified, uncomplicated; Z86.73 Personal history of transient ischemic attack (TIA), and cerebral infarction without residual deficits; Z90.49 Acquired absence of other specified parts of digestive tract; Z79.4 Long term (current) use of insulin; Z79.84 Long term (current) use of oral hypoglycemic drugs; Z79.899 Other long term (current) drug therapy
CPT/HCPCS: 99284; 96374; 96375; 96361; 36415; 80053; 82150; 83690; 85025; 81003; J2405; J1170

== ENCOUNTER 2017-06-27 11:26 | Emergency (ER) | payer OTHER ==
--- NOTE | 2017-06-27 12:42 | ED ---
General Adult HPI - General Chief complaint: Extremity Injury, Upper Stated complaint: hand infection Time Seen by Provider: 06/27/17 12:10 Source: patient, RN notes reviewed Mode of arrival: ambulatory Limitations: no limitations - History of Present Illness Initial comments: Patient is a pleasant 56-year-old female presenting to the emergency department with concern for her right finger. Patient states 2 weeks ago she had her fingers caught in the garage door. Patient was stuck for around 2 and half hours. Patient states it was cold outside and she tried to amputate the fingers herself. Patient went to [facility]. Patient had reattachment of her right middle finger. Patient had partial reattachment of her right index finger. 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 Patient has noticed some purplish discoloration however today right middle finger distally looks black. Patient has discomfort. Patient requests pain medication. Patient prefers not to go to [facility] because family gave her one [employer] for her pain there. Patient reportedly was seen by psychiatry following the injury. - Related Data Home Medications Medication Instructions Recorded Confirmed Insulin Glargine [Lantus] 15 unit SQ HS 02/28/17 05/04/17 [id number] 1 tab PO Q4HR PRN 05/04/17 05/04/17 [Excedrin] Cephalexin [Keflex] 500 mg PO Q12HR 05/04/17 05/04/17 Glimepiride [Amaryl] 1 mg PO BID 05/04/17 05/04/17 Insulin Aspart [NovoLOG 2 unit SQ TID-W/MEALS 05/04/17 05/04/17 (formulary)] L.acidoph,Paracasei, B.lactis 1 cap PO DAILY 05/04/17 05/04/17 [Probiotic] OXcarbazepine 600 mg PO TID 05/04/17 05/04/17 QUEtiapine [SEROquel] 100 mg PO BID 05/04/17 05/04/17 QUEtiapine [SEROquel] 300 mg PO HS 05/04/17 05/04/17 hydrOXYzine HCL 25 mg PO DAILY 05/04/17 05/04/17 metFORMIN HCL [Glucophage] 500 mg PO BID 05/04/17 05/04/17 Previous Rx's Medication Instructions Recorded Famotidine [Pepcid] 20 mg PO BID #20 tablet 05/04/17 Ondansetron Odt [Zofran ODT] 4 mg PO Q8HR PRN #20 tab 05/04/17 Allergies Allergy/AdvReac Type Severity Reaction Status Date / Time No Known Allergies Allergy Verified 06/27/17 11:39 Review of Systems ROS Statement: Those systems with pertinent positive or pertinent negative responses have been documented in the HPI. ROS Other: All systems not noted in ROS Statement are negative. Constitutional: Denies: fever Eyes: Denies: eye pain ENT: Denies: ear pain Respiratory: Denies: cough Cardiovascular: Denies: chest pain Endocrine: Denies: fatigue Gastrointestinal: Denies: abdominal pain Genitourinary: Denies: dysuria Musculoskeletal: Denies: back pain Skin: Denies: rash Neurological: Denies: weakness Past Medical History Past Medical History: CVA/TIA, Diabetes Mellitus, Hyperlipidemia Additional Past Medical History / Comment(s): depression , Chronic pancreatitis History of Any Multi-Drug Resistant Organisms: None Reported Past Surgical History: Appendectomy, Orthopedic Surgery Additional Past Surgical History / Comment(s): neck, right hand Past Psychological History: Bipolar, Depression, PTSD Smoking Status: Current every day smoker Past Alcohol Use History: Abuse Past Drug Use History: Marijuana - Past Family History Father Family Medical History: Liver Disease Additional Family Medical History / Comment(s): Father at age 78 from cirrhosis of the liver. Mother Additional Family Medical History / Comment(s): Mother is alive in her 80s Sister(s) Family Medical History: Coronary Artery Disease (CAD), Diabetes Mellitus Additional Family Medical History / Comment(s): Patient has 2 sisters and one has from an overdose. She has 1 brother with no major medical problems. General Exam Limitations: no limitations General appearance: alert, in no apparent distress Head exam: Present: atraumatic Eye exam: Present: normal appearance Neck exam: Present: normal inspection Respiratory exam: Present: normal lung sounds bilaterally Cardiovascular Exam: Present: regular rate, normal rhythm GI/Abdominal exam: Present: soft. Absent: tenderness Extremities exam: Present: other (Right hand in cast. Distal portion of the index finger is visualized. There is a pin placed. Good cap refill and good color. Sensation intact. Movement is present. Long finger is also visualized. Black discoloration of the tuft, approximately half way past the DIP. Patient states sensation is intact. There is a pin present. There is movement present.) Neurological exam: Present: alert Psychiatric exam: Present: normal affect, normal mood Skin exam: Present: other (Black discoloration of the distal middle finger) Course Vital Signs 06/27/17 06/27/17 11:39 13:11 Temperature 99.5 F 97.2 F L Pulse Rate 76 73 Respiratory 18 20 Rate Blood Pressure 139/81 147/86 O2 Sat by Pulse 100 97 Oximetry - Reevaluation(s) Reevaluation #1: 06/27/17 13:02 Case was discussed with practitioner Kristan Reyna who did discuss with Dr. Way and Dr. Farias. Dr. Way is going out of town and unable to consult. Dr. Darden feels patient is best served transferring to facility with hand specialist that had previously taking care of her. Patient updated. 06/27/17 13:19 Case was discussed with charge nurse,Corazon, who will accept for Dr. Galdamez. Patient updated. Disposition Clinical Impression: Gangrene of finger of right hand Disposition: OTHER INSTITUTION NOT DEFINED Referrals: Franki Coronel MD [Primary Care Provider] - 1-2 days Time of Disposition: 13:21 - Out of Hospital Transfer - Req. Specs Out of Hospital Transfer - Requested Specifics: Other Emergency Center
[2017-06-27] MEDS ORDERED: MORPHINE SULFATE 5 MG/ML SYRINGE IVP STA (13:04)
[2017-06-27 23:26] VITALS: BP 141/84; PULSE 84; RESP 80; TEMP 97.7
== END 2017-06-27 14:33 | disposition other institution (70) ==
LOC: EC 11:26
DX: E11.52 Type 2 diabetes mellitus with diabetic peripheral angiopathy with gangrene (principal); I96 Gangrene, not elsewhere classified; F17.200 Nicotine dependence, unspecified, uncomplicated; F31.9 Bipolar disorder, unspecified; Z86.73 Personal history of transient ischemic attack (TIA), and cerebral infarction without residual deficits; Z79.4 Long term (current) use of insulin; Z79.899 Other long term (current) drug therapy; W23.0XXA Caught, crushed, jammed, or pinched between moving objects, initial encounter
CPT/HCPCS: 99284; 96374; J2274

== ENCOUNTER 2017-07-02 14:28 | Emergency (ER) | payer OTHER ==
[2017-07-02] MEDS ORDERED: HYDROcodone/APAP 5-325MG 1 EACH TAB PO STA (14:51)
--- NOTE | 2017-07-02 15:29 | XR ---
EXAMINATION TYPE: XR forearm RT DATE OF EXAM: 07/02/2017 CLINICAL HISTORY: Pain from fall post surgery. TECHNIQUE: Two views of the right forearm are obtained. COMPARISON: None. FINDINGS: Bony detail is limited by the overlying cast material. There is no gross evidence of acute fracture or dislocation seen in the right radius or ulna. The right elbow and wrist joints appear w ithin normal limits. The overlying soft tissue appears within normal limits. Surgical clips are seen in the volar soft tissues overlying the distal radius and ulna. IMPRESSION: Limited osseous detail due to overlying casting material with no gross acute fracture or dislocation seen in the right radius or ulna.
--- NOTE | 2017-07-02 15:44 | XR ---
Right hand HISTORY: Trauma and pain, postop 3 views of the right hand Postop changes are noted to the second and third digits. Fourth and fifth digits are flexed. There is an overlying cast. Surgical clips are present in the volar distal wrist soft tissues as well as the soft tissues of the third digit. No acute fracture or dislocation is evident. There may be a ulnar st yloid fracture of questionable acuity. IMPRESSION: As above
--- NOTE | 2017-07-02 16:22 | ED ---
General Adult HPI - General Chief complaint: Fall Stated complaint: Hand Pain Time Seen by Provider: 07/02/17 14:39 Source: patient, EMS Mode of arrival: EMS Limitations: no limitations - History of Present Illness Initial comments: This 56-year-old white female presents with a complaint of right hand and arm pain. She relates that she got her right index and right middle fingers caught in a garage door on 06/15/2017. She could not get them out and it was very cold outside so she cut off her to fingers at that time. She did present to our ER and was sent to [facility] for finger reimplantation. She had surgery at their facility. She has followed up with us since then and was sent back down to [facility] as our orthopedic surgeons did not want to get involved in her case as the surgery was completed at another facility and it is a complex reimplantation case. She relates that she followed up with her primary care physician today. She apparently fell at their office and complains of pain to her right arm and hand. They sent her for evaluation at our facility. She still complains of pain to her right arm and hand which appears to be a degree chronic at this time. She has been prescribed [place] by her primary physician but states that the only thing that helps his morphine or Dilaudid. She denies any other complaints or modifying factors. - Related Data Home Medications Medication Instructions Recorded Confirmed Insulin Glargine [Lantus] 15 unit SQ HS 02/28/17 06/27/17 [id number] 1 tab PO Q4HR PRN 05/04/17 06/27/17 [Excedrin] Cephalexin [Keflex] 500 mg PO Q12HR 05/04/17 06/27/17 Glimepiride [Amaryl] 1 mg PO BID 05/04/17 06/27/17 Insulin Aspart [NovoLOG 2 unit SQ TID-W/MEALS 05/04/17 06/27/17 (formulary)] L.acidoph,Paracasei, B.lactis 1 cap PO DAILY 05/04/17 06/27/17 [Probiotic] OXcarbazepine 600 mg PO TID 05/04/17 06/27/17 QUEtiapine [SEROquel] 100 mg PO BID 05/04/17 06/27/17 hydrOXYzine HCL 25 mg PO DAILY 05/04/17 06/27/17 metFORMIN HCL [Glucophage] 500 mg PO BID 05/04/17 06/27/17 Gabapentin [Neurontin] 300 mg PO TID 06/27/17 06/27/17 QUEtiapine FUMARATE [SEROquel] 300 mg PO HS 06/27/17 06/27/17 Previous Rx's Medication Instructions Recorded Famotidine [Pepcid] 20 mg PO BID #20 tablet 05/04/17 Ondansetron Odt [Zofran ODT] 4 mg PO Q8HR PRN #20 tab 05/04/17 Allergies Allergy/AdvReac Type Severity Reaction Status Date / Time No Known Allergies Allergy Verified 06/27/17 13:51 Review of Systems ROS Statement: Those systems with pertinent positive or pertinent negative responses have been documented in the HPI. ROS Other: All systems not noted in ROS Statement are negative. Past Medical History Past Medical History: CVA/TIA, Diabetes Mellitus, Hyperlipidemia Additional Past Medical History / Comment(s): depression , Chronic pancreatitis History of Any Multi-Drug Resistant Organisms: None Reported Past Surgical History: Appendectomy Additional Past Surgical History / Comment(s): neck Past Psychological History: Bipolar, Depression, PTSD Smoking Status: Current every day smoker Past Alcohol Use History: Abuse Past Drug Use History: Marijuana - Past Family History Father Family Medical History: Liver Disease Additional Family Medical History / Comment(s): Father at age 78 from cirrhosis of the liver. Mother Additional Family Medical History / Comment(s): Mother is alive in her 80s Sister(s) Family Medical History: Coronary Artery Disease (CAD), Diabetes Mellitus Additional Family Medical History / Comment(s): Patient has 2 sisters and one has from an overdose. She has 1 brother with no major medical problems. General Exam Limitations: no limitations General appearance: alert, in no apparent distress Extremities exam: Present: other (The patient is in a short arm cast to her right arm. There is no proximal tenderness or swelling or erythema. The distal ends of the index and middle finger are observable through the cast and the index finger appears normal with good capillary refill, no erythema, and no swelling. The middle finger, however, does show a degree of necrosis. There is hard ecchymosis noted distally and it is felt as though there is a portion of the distal finger which is nonviable. There is no associated erythema or swelling. There is no sensation to that distal aspect of the right middle finger.) Neurological exam: Present: alert, oriented X3 Psychiatric exam: Present: normal affect, normal mood Skin exam: Present: other (Please see musculoskeletal exam. No other rash or change in pigmentation is noted.) Course Vital Signs 07/02/17 14:33 Temperature 98.1 F Pulse Rate 78 Respiratory 18 Rate Blood Pressure 130/71 O2 Sat by Pulse 100 Oximetry Medical Decision Making - Medical Decision Making The patient was seen and examined. An x-ray was done of the right forearm and right hand. There is no evidence of acute fracture noted. Postsurgical changes are noted to the right index and right middle finger. There appears to be a subacute ulnar styloid fracture. The patient is insistent that I tried to get our orthopedic surgeons to consult and treat her. She is insistent that we remove her cast. I did discuss the case with Raoul, the orthopedic PA [facility]-call [facility], and he relates that we would have to defer her care back to the [facility] where she had the surgery. Is felt as though this is extremely reasonable. I informed her that we will not be removing her cast. It does not appear that she has any acute condition which would require transfer to [facility] at this time. It is felt as though she can follow up on an outpatient basis. She did receive 1 [place] while in the ER. She is informed to get further pain medications through her specialist or primary care physician. She leaves in no identifiable distress. She does understand that further care for this condition needs to be arranged through [facility] and that we will not be intervening and their plan of care. It is also felt that she will likely auto amputate the distal aspect of her right middle finger. Disposition Clinical Impression: Right hand pain, Right arm pain, Finger necrosis Disposition: HOME SELF-CARE Condition: Fair Referrals: Franki Coronel MD [Primary Care Provider] - 1-2 days Time of Disposition: 16:19
--- NOTE | 2017-07-02 16:23 | ED ---
Disposition Clinical Impression: Right hand pain, Right arm pain, Finger necrosis Disposition: HOME SELF-CARE Condition: Fair Instructions: Arm Pain (ED) Referrals: Franki Coronel MD [Primary Care Provider] - 1-2 days
[2017-07-02 16:30] VITALS: BP 125/68; PULSE 64; RESP 16; TEMP 98.2
== END 2017-07-02 16:30 | disposition home or self-care (01) ==
LOC: EC 14:28
DX: M79.601 Pain in right arm (principal); M79.641 Pain in right hand; I96 Gangrene, not elsewhere classified; F31.9 Bipolar disorder, unspecified; F43.10 Post-traumatic stress disorder, unspecified; E11.9 Type 2 diabetes mellitus without complications; F17.200 Nicotine dependence, unspecified, uncomplicated; Z86.73 Personal history of transient ischemic attack (TIA), and cerebral infarction without residual deficits; Z79.4 Long term (current) use of insulin; Z79.899 Other long term (current) drug therapy
CPT/HCPCS: 99283

== ENCOUNTER 2017-12-13 17:07 | Observation (INO) | payer OTHER ==
[2017-12-13] MEDS ORDERED: NITROGLYCERIN SL TABS 0.4 MG TAB SUBLINGUAL STA ×3 (17:19)
[2017-12-13] MEDS ORDERED: ASPIRIN 81 MG PO STA (17:19)
--- NOTE | 2017-12-13 17:22 | ED ---
General Adult HPI - General Chief complaint: Chest Pain Stated complaint: Chest Pain Time Seen by Provider: 12/13/17 17:16 Source: patient, RN notes reviewed Mode of arrival: EMS Limitations: no limitations - History of Present Illness Initial comments: Patient is a pleasant 57-year-old female presenting to the emergency Department with complaints of chest discomfort. Onset of symptoms was somewhat last night but worse today. Symptoms have been waxing and waning. Discomfort is moderate to severe at this time. Patient has pressure in the right sternal region. There is some radiation towards the breast and back. Patient does have fatigue and nausea and lightheadedness. Symptoms do worsen with exertion. No history of similar symptoms previously. Patient states this is not similar to her previous pancreatitis. No diaphoresis or dyspnea.. Patient does have some associated dyspnea. - Related Data Home Medications Medication Instructions Recorded Confirmed Insulin Aspart [NovoLOG 2 unit SQ AC-TID 05/04/17 12/13/17 (formulary)] OXcarbazepine 600 mg PO TID 05/04/17 12/13/17 hydrOXYzine HCL 25 mg PO DAILY 05/04/17 12/13/17 metFORMIN HCL [Glucophage] 500 mg PO BID 05/04/17 12/13/17 Insulin Glargine,Hum.rec.anlog 10 unit SQ HS 12/13/17 12/13/17 [Basaglar Kwikpen U-100] QUEtiapine FUMARATE [Seroquel Xr] 300 mg PO HS 12/13/17 12/13/17 glipiZIDE XL [Glucotrol Xl] 5 mg PO DAILY 12/13/17 12/13/17 Allergies Allergy/AdvReac Type Severity Reaction Status Date / Time No Known Allergies Allergy Verified 12/13/17 19:04 Review of Systems ROS Statement: Those systems with pertinent positive or pertinent negative responses have been documented in the HPI. ROS Other: All systems not noted in ROS Statement are negative. Constitutional: Denies: fever Eyes: Denies: eye pain ENT: Denies: ear pain Respiratory: Reports: dyspnea Cardiovascular: Reports: chest pain Endocrine: Reports: fatigue Gastrointestinal: Reports: nausea. Denies: abdominal pain, vomiting Genitourinary: Denies: dysuria Musculoskeletal: Denies: arthralgia Skin: Denies: rash Neurological: Denies: headache Past Medical History Past Medical History: CVA/TIA, Diabetes Mellitus, Hyperlipidemia Additional Past Medical History / Comment(s): depression , Chronic pancreatitis History of Any Multi-Drug Resistant Organisms: None Reported Past Surgical History: Appendectomy Additional Past Surgical History / Comment(s): neck Past Psychological History: Bipolar, Depression, PTSD Smoking Status: Current every day smoker Past Alcohol Use History: Abuse Past Drug Use History: Marijuana - Past Family History Father Family Medical History: Liver Disease Additional Family Medical History / Comment(s): Father at age 78 from cirrhosis of the liver. Mother Additional Family Medical History / Comment(s): Mother is alive in her 80s Sister(s) Family Medical History: Coronary Artery Disease (CAD), Diabetes Mellitus Additional Family Medical History / Comment(s): Patient has 2 sisters and one has from an overdose. She has 1 brother with no major medical problems. General Exam Limitations: no limitations General appearance: alert, in no apparent distress Head exam: Present: atraumatic Eye exam: Present: normal appearance, PERRL ENT exam: Present: normal oropharynx Neck exam: Present: normal inspection Respiratory exam: Present: normal lung sounds bilaterally. Absent: chest wall tenderness Cardiovascular Exam: Present: regular rate, normal rhythm Expanded Peripheral pulses: 2+: Radial (R), Radial (L), Posterior Tibialis (R), Posterior Tibialis (L) GI/Abdominal exam: Present: soft. Absent: tenderness Extremities exam: Present: normal inspection. Absent: pedal edema, calf tenderness Neurological exam: Present: alert Psychiatric exam: Present: normal affect, normal mood Skin exam: Present: normal color Course Vital Signs 12/13/17 12/13/17 12/13/17 17:11 17:33 18:39 Temperature 97.8 F Pulse Rate 59 L 85 82 Respiratory 16 16 16 Rate Blood Pressure 116/75 103/59 114/76 O2 Sat by Pulse 97 100 Oximetry 12/13/17 19:24 Temperature 97.8 F Pulse Rate 78 Respiratory 20 Rate Blood Pressure 119/74 O2 Sat by Pulse 99 Oximetry EKG Findings - EKG Comments: EKG Findings:: Normal sinus rhythm 85. IL 186. QRS 84. QT 370. QTc 440. Normal axis. Normal QRS. No acute ST change. Medical Decision Making - Medical Decision Making Patient reevaluated and updated. Patient specifically updated on borderline aneurysm of ascending aorta, and need for further evaluation and monitoring. Patient is resting comfortably in bed at this time. Case was discussed in detail with Dr. Mack, covering for Dr. Brito, who will admit for Dr. Ward. - Lab Data Result diagrams: 12/13/17 17:33 12/13/17 17:33 Lab Results 12/13/17 12/13/17 12/13/17 Range/Units 17:33 17:33 17:33 WBC 14.1 H (3.8-10.6) k/uL RBC 3.91 (3.80-5.40) m/uL Hgb 12.1 (11.4-16.0) gm/dL Hct 35.3 (34.0-46.0) % MCV 90.3 (80.0-100.0) fL MCH 30.9 (25.0-35.0) pg MCHC 34.2 (31.0-37.0) g/dL RDW 12.6 (11.5-15.5) % Plt Count 192 (150-450) k/uL Neutrophils % 87 % Lymphocytes % 8 % Monocytes % 4 % Eosinophils % 1 % Basophils % 0 % Neutrophils # 12.2 H (1.3-7.7) k/uL Lymphocytes # 1.1 (1.0-4.8) k/uL Monocytes # 0.6 (0-1.0) k/uL Eosinophils # 0.1 (0-0.7) k/uL Basophils # 0.0 (0-0.2) k/uL PT (9.0-12.0) sec INR (<1.2) APTT (22.0-30.0) sec D-Dimer (<0.60) mg/L FEU Sodium 136 L (137-145) mmol/L Potassium 3.9 (3.5-5.1) mmol/L Chloride 104 (98-107) mmol/L Carbon Dioxide 19 L (22-30) mmol/L Anion Gap 13 mmol/L BUN 18 H (7-17) mg/dL Creatinine 0.52 (0.52-1.04) mg/dL Est GFR (CKD-EPI)AfAm >90 (>60 ml/min/1.73 sqM) Est GFR (CKD-EPI)NonAf >90 (>60 ml/min/1.73 sqM) Glucose 161 H (74-99) mg/dL Calcium 9.1 (8.4-10.2) mg/dL Magnesium 1.8 (1.6-2.3) mg/dL Total Bilirubin 0.4 (0.2-1.3) mg/dL AST 162 H (14-36) U/L ALT 147 H (9-52) U/L Alkaline Phosphatase 97 (38-126) U/L Total Creatine Kinase 34 (30-135) U/L CK-MB (CK-2) <0.2 (0.0-2.4) ng/mL CK-MB (CK-2) Rel Index Troponin I <0.012 (0.000-0.034) ng/mL NT-Pro-B Natriuret Pep pg/mL Total Protein 6.1 L (6.3-8.2) g/dL Albumin 3.7 (3.5-5.0) g/dL Amylase 36 (30-110) U/L Lipase 41 (23-300) U/L 12/13/17 12/13/17 Range/Units 17:33 17:33 WBC (3.8-10.6) k/uL RBC (3.80-5.40) m/uL Hgb (11.4-16.0) gm/dL Hct (34.0-46.0) % MCV (80.0-100.0) fL MCH (25.0-35.0) pg MCHC (31.0-37.0) g/dL RDW (11.5-15.5) % Plt Count (150-450) k/uL Neutrophils % % Lymphocytes % % Monocytes % % Eosinophils % % Basophils % % Neutrophils # (1.3-7.7) k/uL Lymphocytes # (1.0-4.8) k/uL Monocytes # (0-1.0) k/uL Eosinophils # (0-0.7) k/uL Basophils # (0-0.2) k/uL PT 10.5 (9.0-12.0) sec INR 1.1 (<1.2) APTT 25.3 (22.0-30.0) sec D-Dimer 0.63 H (<0.60) mg/L FEU Sodium (137-145) mmol/L Potassium (3.5-5.1) mmol/L Chloride (98-107) mmol/L Carbon Dioxide (22-30) mmol/L Anion Gap mmol/L BUN (7-17) mg/dL Creatinine (0.52-1.04) mg/dL Est GFR (CKD-EPI)AfAm (>60 ml/min/1.73 sqM) Est GFR (CKD-EPI)NonAf (>60 ml/min/1.73 sqM) Glucose (74-99) mg/dL Calcium (8.4-10.2) mg/dL Magnesium (1.6-2.3) mg/dL Total Bilirubin (0.2-1.3) mg/dL AST (14-36) U/L ALT (9-52) U/L Alkaline Phosphatase (38-126) U/L Total Creatine Kinase (30-135) U/L CK-MB (CK-2) (0.0-2.4) ng/mL CK-MB (CK-2) Rel Index Troponin I (0.000-0.034) ng/mL NT-Pro-B Natriuret Pep 91 pg/mL Total Protein (6.3-8.2) g/dL Albumin (3.5-5.0) g/dL Amylase (30-110) U/L Lipase (23-300) U/L - Radiology Data Radiology results: report reviewed (CT angiogram shows aphthous chronic vascular disease. Borderline aneurysm of the ascending aorta. No evidence of dissection. No evidence of pulmonary embolism. Extensive pancreatic calcification consistent with chronic pancreatitis.), image reviewed (Chest x- ray shows no acute abnormality.) Disposition Clinical Impression: Chest pain Disposition: ADMITTED IP TO THIS HOSP Referrals: Abdoulaye Alvarez MD [Primary Care Provider] - 1-2 days Decision Time: 20:14
[2017-12-13 17:44] LABS: Basophils % (A) 0 %; Eosinophils # (A) 0.1 k/uL (0-0.7); Eosinophils % (A) 1 %; HCT 35.3 % (34.0-46.0); HGB 12.1 gm/dL (11.4-16.0); Lymphocytes # (A) 1.1 k/uL (1.0-4.8); Lymphocytes % (A) 8 %; MCH 30.9 pg (25.0-35.0); MCHC 34.2 g/dL (31.0-37.0); MCV 90.3 fL (80.0-100.0); Mean Platelet Volume 8.4; Monocytes # (A) 0.6 k/uL (0-1.0); Monocytes % (A) 4 %; Neutrophils # (A) 12.2 k/uL (1.3-7.7); Neutrophils % (A) 87 %; Platelet Count 192 k/uL (150-450); RBC 3.91 m/uL (3.80-5.40); RDW 12.6 % (11.5-15.5); WBC 14.1 k/uL (3.8-10.6)
--- NOTE | 2017-12-13 17:53 | XR ---
EXAMINATION TYPE: XR chest 2V DATE OF EXAM: 12/13/2017 COMPARISON: 09/23/2013 HISTORY: Left-sided chest pain TECHNIQUE: Frontal and lateral views of the chest are obtained. FINDINGS: Heart and mediastinum are normal. Lungs are clear. Diaphragm is normal. Bony thorax is nor mal. There are chest leads. IMPRESSION: Normal chest no change.
[2017-12-13 18:00] LABS: ALT 147 U/L (9-52); AST 162 U/L (14-36); Albumin 3.7 g/dL (3.5-5.0); Alkaline Phosphatase 97 U/L (38-126); Amylase 36 U/L (30-110); Anion Gap 13 mmol/L; Blood Urea Nitrogen 18 mg/dL (7-17); Calcium 9.1 mg/dL (8.4-10.2); Carbon Dioxide 19 mmol/L (22-30); Chloride 104 mmol/L (98-107); Glucose 161 mg/dL (74-99); Lipase 41 U/L (23-300); Magnesium 1.8 mg/dL (1.6-2.3); Potassium 3.9 mmol/L (3.5-5.1); Sodium 136 mmol/L (137-145); Total Bilirubin 0.4 mg/dL (0.2-1.3); Total Protein 6.1 g/dL (6.3-8.2)
[2017-12-13 18:01] LABS: Creatine Kinase 34 U/L (30-135)
[2017-12-13 18:04] LABS: INR 1.1 (<1.2); Partial Thromboplastin Time 25.3 sec (22.0-30.0); Prothrombin Time 10.5 sec (9.0-12.0)
[2017-12-13 18:10] LABS: D-Dimer 0.63 mg/L FEU (<0.60)
[2017-12-13 18:14] LABS: Creatine Kinase MB <0.2 ng/mL (0.0-2.4); Troponin I <0.012 ng/mL (0.000-0.034)
[2017-12-13] MEDS ORDERED: ONDANSETRON 4 MG/2 ML VIAL IVP STA (19:14)
--- NOTE | 2017-12-13 19:29 | CT ---
EXAMINATION TYPE: CT angio thoracic/abd aorta DATE OF EXAM: 12/13/2017 COMPARISON: NONE HISTORY: CHEST PAIN, ARROYO AND NAUSEA CT DLP: 1224 mGycm. Automated Exposure Control for Dose Reduction was Utilized. CONTRAST: CT scan of the thorax, abdomen and pelvis is performed with IV Contrast, patient injected with 100 mL of Isovue 370. FINDINGS: There are 3-D post processed images. There is mild ectasia of the ascending aorta measures 3.9 cm. There is no evidence of thoracic or abd ominal aortic dissection. Thoracic and abdominal aorta are atheromatous. The lungs are clear of conso lidation. There is no pleural effusion. Heart size is normal. There is no pericardial effusion. I see no filling defects in the pulmonary arteries. There is bilateral patency of the renal arteries. There is patency of the celiac artery and superior mesenteric artery. There is bilateral patency of the iliac arteries. Liver spleen appear normal. Gallbladder appears normal. There are multiple pancreatic calcifications. Kidneys show satisfactory contrast opacification. There is no hydronephrosis. There is no ascites. I see no intestinal wall thickening. IMPRESSION: Atherosclerotic vascular disease. Borderline aneurysm of the ascending aorta. No evidence of dissecti on. No evidence of pulmonary embolism. Extensive pancreatic calcification consistent with chronic pancreatitis.
[2017-12-13] MEDS ORDERED: NITROGLYCERIN SL TABS 0.4 MG TAB SUBLINGUAL PRN (20:17)
[2017-12-13] MEDS ORDERED: ALPRAZolam 0.25 MG TAB PO PRN (20:59)
[2017-12-13] MEDS ORDERED: TEMAZEPAM 15 MG CAP PO PRN (20:59)
[2017-12-13] MEDS ORDERED: INSULIN DETEMIR 100 UNIT/ML 10 ML VIAL SQ SCH (21:00)
[2017-12-13 21:35] VITALS: BMI 24.9
[2017-12-13] MEDS: INSULIN ASPART 100 UNIT/ML 1 ML 10 ML VIAL SQ SCH (21:47)
[2017-12-13] MEDS: HYDROcodone/APAP 5-325MG 1 EACH TAB PO PRN (21:50)
[2017-12-13] MEDS: HEPARIN SODIUM,PORCINE 5,000 UNIT/ML 1 ML VIAL SQ SCH (21:51)
--- NOTE | 2017-12-13 22:10 | HP ---
HISTORY AND PHYSICAL CHIEF COMPLAINT: Chest pain. HISTORY OF PRESENT ILLNESS: This 57-year-old woman with a past history of diabetes, hyperlipidemia, depression, chronic pancreatitis, bipolar, depression, PTSD, CVA, TIA being for Dr. Abdoulaye Alvarez in the outpatient setting was complaining of chest pain. The pain was felt in the left side of the chest which radiated to the back. The patient also felt nauseous and tired and weak, fatigued and the patient came to [facility], was admitted for further evaluation and treatment. The initial troponins are negative and lab-piper, sodium was 136. AST, ALT were also elevated. The patient also underwent a CT scan of the abdomen and pelvis showed borderline aneurysm of the ascending aorta as well as extensive pancreatic calcification, indicating chronic pancreatitis. There was no history of any fever, rigors. No history of headache, loss of consciousness, seizures. PAST MEDICAL HISTORY: History of diabetes mellitus type 2, hyperlipidemia, depression, CVA, TIA, bipolar, depression, PTSD. MEDICATIONS PRIOR TO ADMISSION: Include the home medications are: 1. Glucophage 500 mg b.i.d. 2. Hydroxyzine 25 mg p.o. daily. 3. Glipizide 5 mg p.o. daily. 4. Seroquel XR 300 mg q.h.s. 5. Oxcarbazepine 600 mg t.i.d. 6. NovoLog 2 units a.c. t.i.d. 7. Lantus 10 units subcu q.h.s. ALLERGIES: None. FAMILY HISTORY: History of liver disease in the family. SOCIAL HISTORY: History of alcohol abuse, history of nicotine dependence, history of THC. REVIEW OF SYSTEMS: ENT: No diminished hearing or vision. CARDIOVASCULAR: As mentioned earlier. RESPIRATORY: As mentioned earlier. GI: As mentioned earlier. : No dysuria. NERVOUS: No numbness or weakness. ALLERGY/IMMUNOLOGY: No asthma or hay fever. MUSCULOSKELETAL: As mentioned earlier. HEMATOLOGY/ONCOLOGY: No history of anemia. ENDOCRINE: Diabetes mellitus. CONSTITUTIONAL: As mentioned earlier. DERMATOLOGY: Negative. RHEUMATOLOGY: Negative. PSYCHIATRY: As mentioned earlier. PHYSICAL EXAM: Patient is alert, oriented x3. Pulse is 78, blood pressure 119/74, respirations 20, temperature 97.8, pulse ox 99% on 2L. HEENT: Conjunctivae normal. Oral mucosa moist. NECK: No jugular venous distention. No carotid bruits. No lymph node enlargement. CARDIOVASCULAR: S1, S2 muffled. No S3, S4. RESPIRATORY: Breath sounds diminished in the bases. A few scattered rhonchi and crackles. ABDOMEN: Soft, mild diffuse tenderness in the epigastrium. Otherwise, no mass palpable. LEGS: No edema. No swelling. NERVOUS SYSTEM: Higher functions as mentioned earlier. Moves all 4 limbs. No focal motor or sensory deficits. LYMPHATIC: No lymphadenopathy in neck, axillae or groin. SKIN: No ulcer, rash or bleeding. LABS: At this time WBC 14.1. PT is 10.5, INR 1.1. Sodium 136. AST, ALT noted. ASSESSMENT: 1. Left-sided chest pain. Rule out unstable angina, possibly musculoskeletal. 2. Abdominal pain, possible acute on chronic pancreatitis, rule out cholelithiasis. 3. Hyponatremia. 4. Increased AST ALT, possibly hepatitis. 5. Increased WBC. 6. History of cerebrovascular accident, transient ischemic attack. 7. Diabetes mellitus type 2. 8. Hyperlipidemia. 9. Depression. 10.Bipolar, posttraumatic stress disorder. 11.History of nicotine dependence. 12.History of EtOH abuse. 13.History of THC. RECOMMENDATION AND DISCUSSION: In this 57-year-old woman who presented with multiple complex medical issues, will monitor the patient closely. Continue the current medical management and symptomatic treatment. Otherwise, Cardiology be consulted. Symptomatic treatment is being provided. I would also recommend UA with micro as well as resuming the home medications. Will hold off the empiric antibiotics at this time. I recommend ultrasound of the gallbladder. A home medication reconciliation is also being done. Monitor blood sugars closely. The prognosis is guarded because of multiple complex medical issues and further recommendations to follow. See orders for further details. MMODL / IJN: [id number] /
[2017-12-13 22:41] LABS: Glucose,Whole Blood 275 mg/dL (75-99)
[2017-12-13] MEDS: OXcarbazepine 300 MG TAB PO SCH (22:48)
[2017-12-13] MEDS: metFORMIN 500 MG TAB PO SCH (22:48)
[2017-12-13] MEDS: QUEtiapine 100 MG TAB PO SCH (22:48)
[2017-12-13 23:15] LABS: Appearance,Urine Clear (Clear); Bilirubin,Urine Negative (Negative); Blood,Urine Trace (Negative); Color,Urine Yellow; Glucose,Urine (UA) 4+ (Negative); Ketones,Urine Negative (Negative); Leukocyte Esterase,Urine Negative (Negative); Nitrite,Urine Negative (Negative); PH, Urine 6.5 (5.0-8.0); Protein,Urine 1+ (Negative); RBC,Urine 6 /hpf (0-5); Specific Gravity,Urine 1.039 (1.001-1.035); Squamous Epithelial Cell,Urine <1 /hpf (0-4); Urobilinogen,Urine <2.0 mg/dL (<2.0); WBC,Urine 14 /hpf (0-5)
[2017-12-13 23:22] LABS: Amphetamine Screen,Urine Not Detected (NotDetected); Barbiturate Screen,Urine Not Detected (NotDetected); Benzodiazepines Screen,Urine Not Detected (NotDetected); Cocaine Screen,Urine Not Detected (NotDetected); Methadone Screen, Urine Not Detected (NotDetected); Opiate Screen,Urine Not Detected (NotDetected); Oxycodone Screen, Urine Not Detected (NotDetected); Phencyclidine Screen,Urine Not Detected (NotDetected); Tricyclic Antidepressant,Urine Not Detected (NotDetected); Urn Cannabinoid Scrn Detected (NotDetected)
[2017-12-13] MEDS: NITROGLYCERIN OINT 1 INCH/GM PACKET TOPICAL SCH (23:58)
[2017-12-14 00:03] LABS: Creatine Kinase 32 U/L (30-135)
[2017-12-14 00:17] LABS: Creatine Kinase MB <0.2 ng/mL (0.0-2.4); Troponin I <0.012 ng/mL (0.000-0.034)
[2017-12-14] MEDS: NITROGLYCERIN OINT 1 INCH/GM PACKET TOPICAL SCH (04:57)
[2017-12-14 05:33] VITALS: RESP 18
[2017-12-14 06:19] LABS: Basophils % (A) 0 %; Eosinophils % (A) 0 %; HCT 37.3 % (34.0-46.0); HGB 12.3 gm/dL (11.4-16.0); Lymphocytes # (A) 1.1 k/uL (1.0-4.8); Lymphocytes % (A) 11 %; MCV 94.1 fL (80.0-100.0); Mean Platelet Volume 8.3; Monocytes # (A) 0.4 k/uL (0-1.0); Monocytes % (A) 4 %; Neutrophils # (A) 8.3 k/uL (1.3-7.7); Neutrophils % (A) 83 %; Platelet Count 193 k/uL (150-450); RBC 3.97 m/uL (3.80-5.40); RDW 12.7 % (11.5-15.5)
[2017-12-14 06:33] LABS: ALT 154 U/L (9-52); AST 96 U/L (14-36); Albumin 3.5 g/dL (3.5-5.0); Alkaline Phosphatase 103 U/L (38-126); Anion Gap 11 mmol/L; Blood Urea Nitrogen 14 mg/dL (7-17); Calcium 8.9 mg/dL (8.4-10.2); Carbon Dioxide 21 mmol/L (22-30); Chloride 105 mmol/L (98-107); Cholesterol 114 mg/dL (<200); Glucose 137 mg/dL (74-99); HDL Cholesterol 32 mg/dL (40-60); LDL Cholesterol,Calculated 49 mg/dL (0-99); Potassium 4.1 mmol/L (3.5-5.1); Sodium 137 mmol/L (137-145); Total Bilirubin 0.1 mg/dL (0.2-1.3); Total Protein 6.1 g/dL (6.3-8.2); Triglycerides 164 mg/dL (<150)
[2017-12-14 06:40] LABS: Creatine Kinase 27 U/L (30-135)
[2017-12-14 06:54] LABS: Glucose,Whole Blood 162 mg/dL (75-99)
[2017-12-14 06:54] LABS: Creatine Kinase MB <0.2 ng/mL (0.0-2.4); Troponin I <0.012 ng/mL (0.000-0.034)
[2017-12-14] MEDS ORDERED: PANTOPRAZOLE 40 MG TABLET PO SCH (07:30)
[2017-12-14] MEDS ORDERED: metFORMIN 500 MG TAB PO SCH (07:30)
--- NOTE | 2017-12-14 08:44 | US ---
EXAMINATION TYPE: US gallbladder DATE OF EXAM: 12/14/2017 COMPARISON: NONE CLINICAL HISTORY: cholecystitis. EXAM MEASUREMENTS: Liver Length: 15.2 cm Gallbladder Wall: 0.2 cm CBD: 0.6 cm Right Kidney: 11.6 x 4.3 x 4.4 cm Pancreas: multiple echogenic foci noted throughout with comet tail artifact Liver: wnl Gallbladder: wnl Evidence for sonographic Yi's sign: no CBD: wnl Right Kidney: lateral simple cyst noted measuring 1.2 x 1.1 x 1.2cm IMPRESSION: 1. Pancreas appears atrophic and has some scattered echogenic foci. Correlate for chronic pancreatiti s. Consider CT abdomen for additional evaluation.
[2017-12-14] MEDS ORDERED: hydrOXYzine HCL 25 MG TAB PO SCH (09:00)
[2017-12-14] MEDS ORDERED: QUEtiapine 100 MG TAB PO SCH (09:00)
[2017-12-14] MEDS ORDERED: ASPIRIN 325 MG TAB PO SCH (09:00)
[2017-12-14] MEDS: INSULIN ASPART 100 UNIT/ML 1 ML 10 ML VIAL SQ SCH ×2 (09:41→12:34)
[2017-12-14] MEDS: QUEtiapine 100 MG TAB PO SCH (09:45)
[2017-12-14] MEDS: HYDROcodone/APAP 5-325MG 1 EACH TAB PO PRN (09:46)
[2017-12-14] MEDS: metFORMIN 500 MG TAB PO SCH (09:48)
[2017-12-14] MEDS: OXcarbazepine 300 MG TAB PO SCH (09:49)
[2017-12-14] MEDS: HEPARIN SODIUM,PORCINE 5,000 UNIT/ML 1 ML VIAL SQ SCH (09:50)
[2017-12-14] MEDS ORDERED: ASPIRIN 81 MG PO SCH (09:55)
--- NOTE | 2017-12-14 09:57 | P.CRDCN ---
History of Present Illness History of present illness: Mrs. Tripp is a pleasant 57-year-old female past medical history significant for CVA, chronic pancreatitis, diabetes mellitus, dyslipidemia, anxiety, depression, bipolar, PTSD, history of alcohol abuse with recent remission for 2 years, illicit drug use and chronic nicotine dependence. 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 She presented to the hospital yesterday with symptoms of left thoracic discomfort associated with productive cough, nausea and mild dizziness. The discomfort radiates around to the back at times and is worse with movement, cough, deep inspiration and is reproducible on palpation. She denies recent trauma or new activity. She states her cough has been ongoing for a couple of weeks and she is coughing up thick mucous-like sputum. She denies PND or orthopnea. Denies palpitations, vomiting, diaphroesis or ongoing dizziness. EKG reveals sinus mechansim with no acute ST or T-wave abnormalities. Chest xray negative for an acute cardiopulmonary process. CT of the thoracic aorta reveals atherosclerotic vascular disease, borderline aneurysm of the ascending or nausea with no evidence of dissection and no evidence of pulmonary embolism. There is extensive pancreatic calcifications consistent with chronic pancreatitis. Laboratory data reviewed, hemoglobin 12.3, platelets 193, sodium 137, potassium 4.1, magnesium 1.8, AST 96, ALT 154, cardiac enzymes negative 3, LDL 49, HDL 32. Current medications include Glucophage, hydroxyzine, Glucotrol, Seroquel and insulin. Review of Systems At the time of my exam: CONSTITUTIONAL: Denies fever. Denies chills. EYES: Denies blurred vision. Denies vision changes. Denies eye pain. EARS, NOSE, MOUTH & THROAT: Denies headache. Denies sore throat. Denies ear pain. CARDIOVASCULAR: Denies chest pain. Denies shortness of breath. Denies orthopnea. Denies PND. Denies palpitations. RESPIRATORY: Complains of productive cough. GASTROINTESTINAL: Denies abdominal pain. Denies diarrhea. Denies constipation. Complains of mild nausea. Denies vomiting. MUSCULOSKELETAL: Complains of pleuritic pain. INTEGUMENTARY: Denies pruitis. Denies rash. NEUROLOGIC: Denies numbness. Denies tingling. Denies weakness. PSYCHIATRIC: Denies anxiety. Denies depression. ENDOCRINE: Denies fatigue. Denies weight change. Denies polydipsia. Denies polyurina. GENITOURINARY: Denies burning, hematuria or urgency with micturation. HEMATOLOGIC: Denies history of anemia. Denies bleeding. Past Medical History Past Medical History: CVA/TIA, Diabetes Mellitus, Hyperlipidemia Additional Past Medical History / Comment(s): depression , Chronic pancreatitis History of Any Multi-Drug Resistant Organisms: None Reported Past Surgical History: Appendectomy Additional Past Surgical History / Comment(s): neck surgery. Cyst was removed Past Anesthesia/Blood Transfusion Reactions: No Reported Reaction Smoking Status: Current every day smoker - Past Family History Father Family Medical History: Liver Disease Additional Family Medical History / Comment(s): Father at age 78 from cirrhosis of the liver. Mother Additional Family Medical History / Comment(s): Mother is alive in her 80s Sister(s) Family Medical History: Coronary Artery Disease (CAD) Additional Family Medical History / Comment(s): Patient has 2 sisters and one has from an overdose. She has 1 brother with no major medical problems. 4cm anyrusm Medications and Allergies Home Medications Medication Instructions Recorded Confirmed Type Insulin Aspart [NovoLOG 2 unit SQ AC-TID 05/04/17 12/13/17 History (formulary)] OXcarbazepine 600 mg PO TID 05/04/17 12/13/17 History hydrOXYzine HCL 25 mg PO DAILY 05/04/17 12/13/17 History metFORMIN HCL [Glucophage] 500 mg PO BID 05/04/17 12/13/17 History Ibuprofen [Motrin] 400 mg PO Q6HR PRN 12/13/17 12/13/17 History Insulin Glargine,Hum.rec.anlog 10 unit SQ HS 12/13/17 12/13/17 History [Basaglar Kwikpen U-100] QUEtiapine FUMARATE [Seroquel Xr] 300 mg PO HS 12/13/17 12/13/17 History glipiZIDE XL [Glucotrol Xl] 5 mg PO DAILY 12/13/17 12/13/17 History Allergies Allergy/AdvReac Type Severity Reaction Status Date / Time No Known Allergies Allergy Verified 12/13/17 21:21 Physical Exam Vitals: Vital Signs Temp Pulse Pulse Resp BP BP Pulse Ox 12/14/17 07:15 100.4 F H 93 18 100/57 93 L 12/14/17 04:00 99.8 F H 96 18 116/62 99 12/14/17 00:00 97.5 F L 85 135/70 99 12/13/17 23:59 20 12/13/17 22:05 97.7 F 82 138/73 99 12/13/17 21:00 20 12/13/17 20:54 97.8 F 85 20 115/80 100 12/13/17 19:24 97.8 F 78 20 119/74 99 12/13/17 18:39 82 16 114/76 100 12/13/17 17:33 85 16 103/59 12/13/17 17:11 97.8 F 59 L 16 116/75 97 Intake and Output 12/13/17 12/14/17 12/14/17 22:59 06:59 14:59 Other: # Voids 1 200 Weight 63.2 kg Blood pressure 100/57 heart rate 93 100.4F maintaining oxygen saturation on room air GENERAL: This is a 57-year-old female in no apparent distress at the time of my examination. Appears older than stated age. HEENT: Head is atraumatic, normocephalic. Pupils are equal, round. Sclerae anicteric. Conjunctivae are clear. Mucous membranes of the mouth are moist. Neck is supple. There is no jugular venous distention. No carotid bruit is heard. LUNGS: Coarse throughout with faint expiratory wheeze noted. No rales. Positive chest wall tenderness is noted on palpation left thoracic region as well as with deep breathing. HEART: Regular rate and rhythm with murmur at the apex, no rubs or gallops. S1 and S2 heard. ABDOMEN: Soft, nontender. Bowel sounds are heard. No organomegaly noted. EXTREMITIES: No evidence of peripheral edema and no calf tenderness noted. VASCULAR: Radial and dorsalis pedis pulses palpated, no evidence of clubbing. NEUROLOGIC: Patient is awake, alert and oriented x3. Results 12/14/17 05:38 12/14/17 05:38 Cardiac Enzymes 12/13/17 12/13/17 12/13/17 Range/Units 17:33 17:33 23:33 AST 162 H (14-36) U/L CK-MB (CK-2) <0.2 <0.2 (0.0-2.4) ng/mL Troponin I <0.012 <0.012 (0.000-0.034) ng/mL 12/14/17 12/14/17 Range/Units 05:38 05:38 AST 96 H (14-36) U/L CK-MB (CK-2) <0.2 (0.0-2.4) ng/mL Troponin I <0.012 (0.000-0.034) ng/mL Coagulation 12/13/17 Range/Units 17:33 PT 10.5 (9.0-12.0) sec APTT 25.3 (22.0-30.0) sec Lipids 12/14/17 Range/Units 05:38 Triglycerides 164 H (<150) mg/dL Cholesterol 114 (<200) mg/dL HDL Cholesterol 32 L (40-60) mg/dL CBC 12/13/17 12/14/17 Range/Units 17:33 05:38 WBC 14.1 H 10.0 (3.8-10.6) k/uL RBC 3.91 3.97 (3.80-5.40) m/uL Hgb 12.1 12.3 (11.4-16.0) gm/dL Hct 35.3 37.3 (34.0-46.0) % Plt Count 192 193 (150-450) k/uL Comprehensive Metabolic Panel 12/13/17 12/14/17 Range/Units 17:33 05:38 Sodium 136 L 137 (137-145) mmol/L Potassium 3.9 4.1 (3.5-5.1) mmol/L Chloride 104 105 (98-107) mmol/L Carbon Dioxide 19 L 21 L (22-30) mmol/L BUN 18 H 14 (7-17) mg/dL Creatinine 0.52 0.60 (0.52-1.04) mg/dL Glucose 161 H 137 H (74-99) mg/dL Calcium 9.1 8.9 (8.4-10.2) mg/dL AST 162 H 96 H (14-36) U/L ALT 147 H 154 H (9-52) U/L Alkaline Phosphatase 97 103 (38-126) U/L Total Protein 6.1 L 6.1 L (6.3-8.2) g/dL Albumin 3.7 3.5 (3.5-5.0) g/dL Current Medications Generic Name Dose Route Start Last Admin Trade Name Freq PRN Reason Stop Dose Admin Hydrocodone Bitart/Acetaminophen 1 each 12/13/17 20:59 12/13/17 21:50 [place] 5-325 PO 1 each Q6HR PRN Administration Pain Alprazolam 0.25 mg 12/13/17 20:59 Xanax PO TID PRN Anxiety Aspirin 325 mg 12/14/17 09:00 Aspirin PO DAILY [facility] Glipizide 2.5 mg 12/13/17 21:43 12/13/17 22:48 Glucotrol PO 2.5 mg BID [facility] Administration Heparin Sodium (Porcine) 5,000 unit 12/13/17 21:00 12/13/17 21:51 Heparin SQ Not Given Q12HR [facility] Hydroxyzine HCl 25 mg 12/14/17 09:00 Atarax PO DAILY [facility] Insulin Aspart 0 unit 12/13/17 21:00 12/13/17 21:47 Novolog SQ Not Given ACHS [facility] Protocol Insulin Detemir 10 unit 12/13/17 21:00 12/13/17 21:46 Levemir SQ Not Given HS [facility] Metformin HCl 500 mg 12/13/17 21:44 12/13/17 22:48 Glucophage PO 500 mg BID-W/MEALS [facility] Administration Nitroglycerin 1 inch 12/14/17 00:00 12/14/17 04:57 Nitro-Bid Oint TOPICAL Not Given Q6HR [facility] Nitroglycerin 0.4 mg 12/13/17 20:17 Nitrostat SUBLINGUAL Q5M PRN Chest Pain Oxcarbazepine 600 mg 12/13/17 22:00 12/13/17 22:48 Trileptal PO 600 mg TID [facility] Administration Pantoprazole Sodium 40 mg 12/14/17 07:30 Protonix PO AC-BRKFST [facility] Quetiapine Fumarate 150 mg 12/13/17 21:45 12/13/17 22:48 Seroquel PO 150 mg BID [facility] Administration Temazepam 15 mg 12/13/17 20:59 Restoril PO HS PRN Insomnia Intake and Output 12/13/17 12/14/17 12/14/17 22:59 06:59 14:59 Other: # Voids 1 200 Weight 63.2 kg 12/14/17 05:38 12/14/17 05:38 Assessment and Plan Assessment: ASSESSMENT 1. Pleurtic pain. Worse with cough, deep inspiration, movement and on palpation. An acute coronary event has been ruled out. 2. Febrile illness 3. Dyslipidemia 4. Diabetes mellitus 5. Chronic nicotine dependence 6. Illicit drug use 7. Chronic pancreatitis. PLAN Obtain 2D echocardiogram and doppler study to assess cardiac structure and function. Recommend aspirin 81 mg daily and atorvastatin 40 mg daily. No statin therapy secondary to elevated liver enzymes. Discontinue nitropaste. Otherwise stable from a cardiac perspective, an acute coronary event has been ruled out. Smoking cessation discussed as well as lifestyle modifications. Thank you kindly for this consultation. Nurse Practitioner note has been reviewed, I agree with a documented findings and plan of care. Patient was seen and examined.
[2017-12-14] MEDS ORDERED: ACETAMINOPHEN TAB 325 MG TAB PO PRN (11:43)
[2017-12-14 11:45] VITALS: BP 90/52; PULSE 92; TEMP 99.7
[2017-12-14 12:22] LABS: Glucose,Whole Blood 267 mg/dL (75-99)
--- NOTE | 2017-12-14 14:02 | ECHOF ---
Referral Reason:sob, cp, murmur MEASUREMENTS -------- HEIGHT: 165.1 cm WEIGHT: 63.0 kg BP: IVSd: 1.1 cm (0.6 - 1.1) LVIDd: 3.2 cm (3.9 - 5.3) LVPWd: 1.4 cm (0.6 - 1.1) IVSs: 1.7 cm LVIDs: 1.9 cm LVPWs: 1.7 cm Ao Diam: 2.4 cm (2.0 - 3.7) AV Cusp: 1.3 cm (1.5 - 2.6) LA Diam: 3.6 cm (2.7 - 3.8) MV EXCURSION: 14.577 mm (> 18.000) MV EF SLOPE: 97 mm/s (70 - 150) EPSS: 0.3 cm MV E Sundar: 1.03 m/s MV DecT: 177 ms MV A Sundar: 1.17 m/s MV E/A Ratio: 0.88 RAP: 5.00 mmHg RVSP: 14.60 mmHg FINDINGS -------- Sinus rhythm. This was a technically good study. The left ventricular size is normal. There is borderline concentric left ventricular hypertrophy. Overall left ventricular systolic function is normal with, an EF between 55 - 60 %. The right ventricle is normal in size and function. The left atrium is normal in size. The right atrium is normal in size. The aortic valve is trileaflet, and appears structurally normal. No aortic stenosis or regurgitation. The mitral valve leaflets are mildly thickened. Mild mitral regurgitation is present. Trace tricuspid regurgitation present. The right ventricular systolic pressure, as measured by Dopp ler, is 14.60mmHg. Pulmonic valve appears structurally normal. The aortic root size is normal. The pericardium is normal. CONCLUSIONS -------- 1. Sinus rhythm. 2. This was a technically good study. 3. The left ventricular size is normal. 4. There is borderline concentric left ventricular hypertrophy. 5. Overall left ventricular systolic function is normal with, an EF between 55 - 60 %. 6. The right ventricle is normal in size and function. 7. The left atrium is normal in size. 8. The right atrium is normal in size. 9. The aortic valve is trileaflet, and appears structurally normal. No aortic stenosis or regurgitati on. 10. The mitral valve leaflets are mildly thickened. 11. Mild mitral regurgitation is present. 12. Trace tricuspid regurgitation present. 13. The right ventricular systolic pressure, as measured by Doppler, is 14.60mmHg. 14. Pulmonic valve appears structurally normal. 15. The aortic root size is normal. 16. The pericardium is normal. BOX BLANK MACHINE FEEDER: Kristan Turk RDCS
--- NOTE | 2017-12-14 15:53 | DS ---
DISCHARGE SUMMARY FINAL DIAGNOSES: 1. Left-sided chest pain, possibly musculoskeletal. Myocardial infarction ruled out. 2. Abdominal pain, possibly acute on chronic pancreatitis, improved. 3. Fever, possibly acute bronchitis. 4. Hyponatremia. 5. Increased AST, ALT, possibly hepatitis. 6. Increased white count. 7. History of cerebrovascular accident, transient ischemic attack. 8. Diabetes mellitus, type 2. 9. Hyperlipidemia. 10.Depression. 11.Bipolar, post-traumatic stress disorder. 12.History of nicotine dependence. 13.History of ethanol abuse. 14.History of tetrahydrocannabinol. DISCHARGE DISPOSITION: Patient will be discharged in stable condition with guarded prognosis. Cardiology cleared the patient for discharge. HISTORY OF PRESENT ILLNESS: This 57-year-old woman with a past medical history of multiple medical problems, as mentioned earlier, was admitted with multiple symptomatology as detailed above. Myocardial infarction was ruled out. Cardiology recommended outpatient followup. Treated symptomatically. On exam, vitals are stable. CARDIOVASCULAR SYSTEM: S1, S2 muffled. ABDOMEN: Soft. NERVOUS SYSTEM: No focal deficit. DISCHARGE ADVICE AND MEDICATIONS: 1. Diet is cardiac. 2. Activity limited until followup. 3. Follow up with Dr. Alvarez as advised. 4. Follow up with Cardiology as recommended. 5. Bactrim DS one p.o. b.i.d. for 5 days. 6. Glucotrol 5 mg p.o. daily. 7. Hydroxyzine 25 mg p.o. daily. 8. Motrin 400 mg q.6 p.r.n. 9. NovoLog 2 units before meals t.i.d. 10.Lantus 10 units subcutaneously at bedtime. 11.Glucovance 500 mg p.o. b.i.d. 12.Oxcarbazepine 600 mg p.o. t.i.d. 13.Seroquel 300 mg at bedtime. Once again, the patient will be discharged in stable condition with guarded prognosis. MMODL / IJN: [id number] /
[2017-12-14 17:50] LABS: Hemoglobin A1C 7.7 % (4.0-6.0)
== END 2017-12-14 15:12 | disposition home or self-care (01) ==
LOC: EC 17:07 → 3OBS 20:18
PROVIDERS: ADMIT Hospitalist; ATTEND Hospitalist
DX: R07.89 Other chest pain (principal); R07.81 Pleurodynia; K86.1 Other chronic pancreatitis; E11.9 Type 2 diabetes mellitus without complications; E78.5 Hyperlipidemia, unspecified; F17.200 Nicotine dependence, unspecified, uncomplicated; F10.11 Alcohol abuse, in remission; F12.10 Cannabis abuse, uncomplicated; R74.0 Nonspecific elevation of levels of transaminase and lactic acid dehydrogenase [LDH]; D72.829 Elevated white blood cell count, unspecified; E87.1 Hypo-osmolality and hyponatremia; F31.9 Bipolar disorder, unspecified; F43.10 Post-traumatic stress disorder, unspecified; Z79.4 Long term (current) use of insulin; Z79.899 Other long term (current) drug therapy; Z90.89 Acquired absence of other organs; Z86.73 Personal history of transient ischemic attack (TIA), and cerebral infarction without residual deficits; Z83.79 Family history of other diseases of the digestive system; Z82.49 Family history of ischemic heart disease and other diseases of the circulatory system; Z81.3 Family history of other psychoactive substance abuse and dependence; Z83.3 Family history of diabetes mellitus
CPT/HCPCS: 99285 ×2; 96374 ×2; 36415; 94760; 93306; 85379; 83880; 80061; 80053 ×2; 82150; 82550 ×2; 82553 ×2; 83690; 83735; 84484 ×2; 85025 ×2; 85610; 85730; 81001; 80306; 87502; 83036; 71046; 76705; 75635; 71275; G0378 ×2; J2405; Q9967

== ENCOUNTER 2017-12-28 08:52 | Emergency (ER) | payer OTHER ==
[2017-12-28 08:57] VITALS: RESP 16
[2017-12-28] MEDS ORDERED: SODIUM CHLORIDE 0.9% 1,000 ML IV STA (08:59)
[2017-12-28] MEDS ORDERED: KETOROLAC 30 MG/ML 1 ML VIAL IVP STA (09:14)
[2017-12-28] MEDS ORDERED: METOCLOPRAMIDE 5 MG/ML 2 ML VIAL IVP STA (09:14)
[2017-12-28] MEDS ORDERED: diphenhydrAMINE 50 MG/ML 1 ML VIAL IVP STA (09:14)
--- NOTE | 2017-12-28 09:20 | ED ---
General Adult HPI - General Source: patient, EMS, RN notes reviewed Mode of arrival: EMS Limitations: no limitations <Ronan Lassiter - Last Filed: 12/28/17 10:44> <Anatoly Proctor - Last Filed: 01/01/18 14:28> - General Chief complaint: Nausea/Vomiting/Diarrhea Stated complaint: nausea, vomiting Time Seen by Provider: 12/28/17 08:59 - History of Present Illness Initial comments: This a 57-year-old female presents emergency department via EMS chief complaint of nausea vomiting and upper abdominal pain. Patient states she has chronic issues with her pancreas. Patient states that she was told that she may have pancreatic cancer at the beginning of this year but she states that she has never followed up. Patient states that she had other health problems that affected her from following up. Patient denies any fever, chills, back pain any current chest pain or shortness breath. She was recently admitted for chest pain and had a complete workup with no acute findings. Patient denies any diarrhea, dysuria, hematuria. Patient states she has not taken any current pain medications though she is requesting morphine in emergency department. ( Ronan Lassiter) - Related Data Home Medications Medication Instructions Recorded Confirmed Insulin Aspart [NovoLOG 2 unit SQ AC-TID 05/04/17 12/28/17 (formulary)] OXcarbazepine 600 mg PO TID 05/04/17 12/28/17 hydrOXYzine HCL 25 mg PO DAILY 05/04/17 12/28/17 metFORMIN HCL [Glucophage] 500 mg PO BID 05/04/17 12/28/17 Ibuprofen [Motrin] 400 mg PO Q6HR PRN 12/13/17 12/28/17 Insulin Glargine,Hum.rec.anlog 10 unit SQ HS 12/13/17 12/28/17 [Basaglar Kwikpen U-100] QUEtiapine FUMARATE [Seroquel Xr] 300 mg PO HS 12/13/17 12/28/17 glipiZIDE XL [Glucotrol XL] 5 mg PO DAILY 12/13/17 12/28/17 Previous Rx's Medication Instructions Recorded Famotidine [Pepcid] 20 mg PO BID #28 tablet 12/28/17 Ondansetron Odt [Zofran Odt] 4 mg PO Q8HR PRN #10 tab 12/28/17 Allergies Allergy/AdvReac Type Severity Reaction Status Date / Time No Known Allergies Allergy Verified 12/28/17 09:24 Review of Systems ROS Other: All systems not noted in ROS Statement are negative. <Ronan Lassiter - Last Filed: 12/28/17 10:44> ROS Other: All systems not noted in ROS Statement are negative. <Anatoly Proctor - Last Filed: 01/01/18 14:28> ROS Statement: Those systems with pertinent positive or pertinent negative responses have been documented in the HPI. Past Medical History Past Medical History: CVA/TIA, Diabetes Mellitus, Hyperlipidemia Additional Past Medical History / Comment(s): depression , Chronic pancreatitis History of Any Multi-Drug Resistant Organisms: None Reported Past Surgical History: Appendectomy Additional Past Surgical History / Comment(s): neck surgery. Cyst was removed Past Anesthesia/Blood Transfusion Reactions: No Reported Reaction Past Psychological History: Anxiety, Bipolar, Depression, PTSD Smoking Status: Current every day smoker - Past Family History Father Family Medical History: Liver Disease Additional Family Medical History / Comment(s): Father at age 78 from cirrhosis of the liver. Mother Additional Family Medical History / Comment(s): Mother is alive in her 80s Sister(s) Family Medical History: Coronary Artery Disease (CAD) Additional Family Medical History / Comment(s): Patient has 2 sisters and one has from an overdose. She has 1 brother with no major medical problems. 4cm anyrusm <Ronan Lassiter - Last Filed: 12/28/17 10:44> General Exam Limitations: no limitations General appearance: alert, in no apparent distress Head exam: Present: atraumatic, normocephalic, normal inspection Neck exam: Present: normal inspection. Absent: tenderness, meningismus, lymphadenopathy Respiratory exam: Present: normal lung sounds bilaterally. Absent: respiratory distress, wheezes, rales, rhonchi, stridor Cardiovascular Exam: Present: regular rate, normal rhythm, normal heart sounds. Absent: systolic murmur, diastolic murmur, rubs, gallop, clicks GI/Abdominal exam: Present: soft, tenderness (Moderate epigastric tenderness), normal bowel sounds. Absent: distended, guarding, rebound, rigid Back exam: Absent: CVA tenderness (R), CVA tenderness (L) Skin exam: Present: warm, dry, intact, normal color. Absent: rash <Ronan Lassiter - Last Filed: 12/28/17 10:44> Course <Ronan Lassiter - Last Filed: 12/28/17 10:44> <Anatoly Proctor - Last Filed: 01/01/18 14:28> Vital Signs 12/28/17 12/28/17 08:53 11:18 Temperature 96.9 F L 97.8 F Pulse Rate 73 78 Respiratory 16 16 Rate Blood Pressure 149/80 137/71 O2 Sat by Pulse 100 97 Oximetry - Reevaluation(s) Reevaluation #1: 12/28/17 10:06 Patient was updated and results and reevaluate she states that she is starting to feel improved her nausea has resolved. (Ronan Lassiter) Medical Decision Making - Lab Data Result diagrams: 12/28/17 09:05 12/28/17 09:05 <Ronan Lassiter - Last Filed: 12/28/17 10:44> - Lab Data Result diagrams: 12/28/17 09:05 12/28/17 09:05 <Anatoly Proctor - Last Filed: 01/01/18 14:28> - Medical Decision Making 57-year-old female presented for nausea vomiting. Patient symptoms started just prior arrival. She was hydrated and given antiemetics in which she states she feels improved. Patient did have some ketonuria any dysuria. Patient was given 3 units of insulin and 2 L of fluid. Patient states that she feels 100% better at this time And her abdomen was reexamined and is nontender. Patient will be discharged with Zofran with close follow-up. (Ronan Lassiter) Resident/PA attestation: I, Dr. Anatoly Proctor, personally saw and examined the patient. I have reviewed and agree with the resident/PA findings, including all diagnostic interpretations and treatment plans as written unless otherwise stated. I was present for the [place]ona portions of any procedures performed and inclusive time noted for any critical care statement. patient is a 57-year-old female presents for nausea or vomiting. Vital signs upon arrival were within normal limits. Laboratory workup shows hyperglycemia. Patient treated for hyperglycemia with cocktail. Patient reevaluated with serial abdominal examinations with improved symptoms. She is discharged with instructions to follow-up with primary care physician for hyperglycemia. ( Anatoly Proctor) - Lab Data Lab Results 12/28/17 12/28/17 12/28/17 Range/Units 09:05 09:05 09:05 WBC 8.9 (3.8-10.6) k/uL RBC 4.02 (3.80-5.40) m/uL Hgb 12.4 (11.4-16.0) gm/dL Hct 37.4 (34.0-46.0) % MCV 93.2 (80.0-100.0) fL MCH 30.9 (25.0-35.0) pg MCHC 33.2 (31.0-37.0) g/dL RDW 12.9 (11.5-15.5) % Plt Count 473 H D (150-450) k/uL Neutrophils % 60 % Lymphocytes % 31 % Monocytes % 4 % Eosinophils % 2 % Basophils % 1 % Neutrophils # 5.3 (1.3-7.7) k/uL Lymphocytes # 2.7 (1.0-4.8) k/uL Monocytes # 0.4 (0-1.0) k/uL Eosinophils # 0.2 (0-0.7) k/uL Basophils # 0.1 (0-0.2) k/uL Sodium 139 (137-145) mmol/L Potassium 4.2 (3.5-5.1) mmol/L Chloride 106 (98-107) mmol/L Carbon Dioxide 21 L (22-30) mmol/L Anion Gap 12 mmol/L BUN 21 H (7-17) mg/dL Creatinine 0.50 L (0.52-1.04) mg/dL Est GFR (CKD-EPI)AfAm >90 (>60 ml/min/1.73 sqM) Est GFR (CKD-EPI)NonAf >90 (>60 ml/min/1.73 sqM) Glucose 265 H (74-99) mg/dL Calcium 9.6 (8.4-10.2) mg/dL Total Bilirubin 0.3 (0.2-1.3) mg/dL AST 15 (14-36) U/L ALT 26 (9-52) U/L Alkaline Phosphatase 94 (38-126) U/L Total Protein 6.7 (6.3-8.2) g/dL Albumin 4.2 (3.5-5.0) g/dL Amylase 40 (30-110) U/L Lipase 51 (23-300) U/L Urine Color Yellow Urine Appearance Cloudy H (Clear) Urine pH 5.5 (5.0-8.0) Ur Specific [place] 1.028 (1.001-1.035) Urine Protein Trace H (Negative) Urine Glucose (UA) 4+ H (Negative) Urine Ketones 3+ H (Negative) Urine Blood Negative (Negative) Urine Nitrite Negative (Negative) Urine Bilirubin Negative (Negative) Urine Urobilinogen 2.0 (<2.0) mg/dL Ur Leukocyte Esterase Negative (Negative) Urine RBC <1 (0-5) /hpf Urine WBC 2 (0-5) /hpf Calcium Oxalate Crystal Many H (None) /hpf Hyaline Casts 1 (0-2) /lpf Urine Mucus Rare H (None) /hpf Acetone, Qual (Negative) 12/28/17 Range/Units 09:05 WBC (3.8-10.6) k/uL RBC (3.80-5.40) m/uL Hgb (11.4-16.0) gm/dL Hct (34.0-46.0) % MCV (80.0-100.0) fL MCH (25.0-35.0) pg MCHC (31.0-37.0) g/dL RDW (11.5-15.5) % Plt Count (150-450) k/uL Neutrophils % % Lymphocytes % % Monocytes % % Eosinophils % % Basophils % % Neutrophils # (1.3-7.7) k/uL Lymphocytes # (1.0-4.8) k/uL Monocytes # (0-1.0) k/uL Eosinophils # (0-0.7) k/uL Basophils # (0-0.2) k/uL Sodium (137-145) mmol/L Potassium (3.5-5.1) mmol/L Chloride (98-107) mmol/L Carbon Dioxide (22-30) mmol/L Anion Gap mmol/L BUN (7-17) mg/dL Creatinine (0.52-1.04) mg/dL Est GFR (CKD-EPI)AfAm (>60 ml/min/1.73 sqM) Est GFR (CKD-EPI)NonAf (>60 ml/min/1.73 sqM) Glucose (74-99) mg/dL Calcium (8.4-10.2) mg/dL Total Bilirubin (0.2-1.3) mg/dL AST (14-36) U/L ALT (9-52) U/L Alkaline Phosphatase (38-126) U/L Total Protein (6.3-8.2) g/dL Albumin (3.5-5.0) g/dL Amylase (30-110) U/L Lipase (23-300) U/L Urine Color Urine Appearance (Clear) Urine pH (5.0-8.0) Ur Specific [place] (1.001-1.035) Urine Protein (Negative) Urine Glucose (UA) (Negative) Urine Ketones (Negative) Urine Blood (Negative) Urine Nitrite (Negative) Urine Bilirubin (Negative) Urine Urobilinogen (<2.0) mg/dL Ur Leukocyte Esterase (Negative) Urine RBC (0-5) /hpf Urine WBC (0-5) /hpf Calcium Oxalate Crystal (None) /hpf Hyaline Casts (0-2) /lpf Urine Mucus (None) /hpf Acetone, Qual Negative (Negative) Disposition Is patient prescribed a controlled substance at d/c from ED?: No Time of Disposition: 10:47 <Ronan Lassiter - Last Filed: 12/28/17 10:44> <Anatoly Proctor - Last Filed: 01/01/18 14:28> Clinical Impression: Nausea & vomiting, Abdominal pain Disposition: HOME SELF-CARE Condition: Stable Instructions: Acute Nausea and Vomiting (ED) Additional Instructions: Please return to the Emergency Department if symptoms worsen or any other concerns. Prescriptions: Famotidine [Pepcid] 20 mg PO BID #28 tablet Ondansetron Odt [Zofran Odt] 4 mg PO Q8HR PRN #10 tab PRN Reason: Nausea Referrals: Abdoulaye Alvarez MD [Primary Care Provider] - 1-2 days
[2017-12-28 09:24] LABS: Basophils % (A) 1 %; Eosinophils % (A) 2 %; HCT 37.4 % (34.0-46.0); HGB 12.4 gm/dL (11.4-16.0); Lymphocytes # (A) 2.7 k/uL (1.0-4.8); Lymphocytes % (A) 31 %; MCH 30.9 pg (25.0-35.0); MCHC 33.2 g/dL (31.0-37.0); MCV 93.2 fL (80.0-100.0); Mean Platelet Volume 7.1; Monocytes # (A) 0.4 k/uL (0-1.0); Monocytes % (A) 4 %; Neutrophils # (A) 5.3 k/uL (1.3-7.7); Neutrophils % (A) 60 %; RBC 4.02 m/uL (3.80-5.40); RDW 12.9 % (11.5-15.5); WBC 8.9 k/uL (3.8-10.6)
[2017-12-28 09:25] LABS: Basophils # (A) 0.1 k/uL (0-0.2); Eosinophils # (A) 0.2 k/uL (0-0.7)
[2017-12-28 09:29] LABS: Platelet Count 473 k/uL (150-450)
[2017-12-28 09:30] LABS: Appearance,Urine Cloudy (Clear); Bilirubin,Urine Negative (Negative); Blood,Urine Negative (Negative); Calcium Oxalate Crystals,Urine Many /hpf; Color,Urine Yellow; Glucose,Urine (UA) 4+ (Negative); Hyaline Casts,Urine 1 /lpf (0-2); Leukocyte Esterase,Urine Negative (Negative); Mucus,Urine Rare /hpf; Nitrite,Urine Negative (Negative); PH, Urine 5.5 (5.0-8.0); Protein,Urine Trace (Negative); RBC,Urine <1 /hpf (0-5); Specific Gravity,Urine 1.028 (1.001-1.035); WBC,Urine 2 /hpf (0-5)
[2017-12-28 09:39] LABS: ALT 26 U/L (9-52); AST 15 U/L (14-36); Albumin 4.2 g/dL (3.5-5.0); Alkaline Phosphatase 94 U/L (38-126); Amylase 40 U/L (30-110); Anion Gap 12 mmol/L; Blood Urea Nitrogen 21 mg/dL (7-17); Calcium 9.6 mg/dL (8.4-10.2); Carbon Dioxide 21 mmol/L (22-30); Chloride 106 mmol/L (98-107); Glucose 265 mg/dL (74-99); Lipase 51 U/L (23-300); Potassium 4.2 mmol/L (3.5-5.1); Sodium 139 mmol/L (137-145); Total Bilirubin 0.3 mg/dL (0.2-1.3); Total Protein 6.7 g/dL (6.3-8.2)
[2017-12-28 09:49] LABS: Ketones,Urine 3+ (Negative)
[2017-12-28] MEDS ORDERED: INSULIN ASPART 100 UNIT/ML 1 ML 10 ML VIAL SQ ONE (10:02)
[2017-12-28] MEDS ORDERED: SODIUM CHLORIDE 0.9% 1,000 ML IV ONE (10:03)
[2017-12-28 11:20] VITALS: BP 137/71; PULSE 78; TEMP 97.8
== END 2017-12-28 11:18 | disposition home or self-care (01) ==
LOC: EC 08:52
DX: R10.13 Epigastric pain (principal); R11.2 Nausea with vomiting, unspecified; R82.4 Acetonuria; R30.0 Dysuria; E11.9 Type 2 diabetes mellitus without complications; F31.9 Bipolar disorder, unspecified; F41.9 Anxiety disorder, unspecified; F43.10 Post-traumatic stress disorder, unspecified; Z79.4 Long term (current) use of insulin; Z79.899 Other long term (current) drug therapy; Z90.49 Acquired absence of other specified parts of digestive tract
CPT/HCPCS: 36415; 80053; 82150; 82009; 83690; 85025; 81001; 99284; 96374; 96375 ×2; 96361 ×2; J1200; J2765; J1885

== ENCOUNTER 2018-04-05 10:04 | Inpatient (IN) | payer OTHER ==
[2018-04-05] MEDS ORDERED: MORPHINE SULFATE 4 MG/ML SYRINGE IV STA (10:58)
[2018-04-05] MEDS ORDERED: SODIUM CHLORIDE 0.9% 1,000 ML IV STA (10:58)
--- NOTE | 2018-04-05 11:07 | ED ---
General Adult HPI - General Chief complaint: Abdominal Pain Stated complaint: abd pain Time Seen by Provider: 04/05/18 10:51 Source: patient, RN notes reviewed, old records reviewed Mode of arrival: wheelchair Limitations: no limitations - History of Present Illness Initial comments: 57 yo female presents for evaluation of abdominal pain. Patient has had 3 umbilical abdominal pain for the past several days, this does radiate to her bilateral flanks. 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 She has also had some episodes of nausea with one episode of vomiting. She is having diarrhea over the past 2 days as well. No fever or chills. She presents today with concerns for discoloration of her urine. This has been present for the past 24 hours. - Related Data Home Medications Medication Instructions Recorded Confirmed hydrOXYzine HCL 25 mg PO DAILY 05/04/17 04/05/18 metFORMIN HCL [Glucophage] 500 mg PO BID 05/04/17 04/05/18 Insulin Glargine,Hum.rec.anlog 10 unit SQ HS 12/13/17 04/05/18 [Basaglar Kwikpen U-100] Ibuprofen [Motrin] 600 mg PO Q8HR PRN 04/05/18 04/05/18 Omeprazole 20 mg PO DAILY 04/05/18 04/05/18 Allergies Allergy/AdvReac Type Severity Reaction Status Date / Time No Known Allergies Allergy Verified 04/05/18 11:24 Review of Systems ROS Statement: Those systems with pertinent positive or pertinent negative responses have been documented in the HPI. ROS Other: All systems not noted in ROS Statement are negative. Past Medical History Past Medical History: CVA/TIA, Diabetes Mellitus, Hyperlipidemia Additional Past Medical History / Comment(s): depression , Chronic pancreatitis , HEART MURMUR AND ENLARGED AORTA History of Any Multi-Drug Resistant Organisms: None Reported Past Surgical History: Appendectomy Additional Past Surgical History / Comment(s): CYST REMOVED FROM NECK. COLONOSCOPY Past Anesthesia/Blood Transfusion Reactions: No Reported Reaction Past Psychological History: Anxiety, Bipolar, Depression, PTSD Smoking Status: Current every day smoker Past Alcohol Use History: None Reported Past Drug Use History: None Reported - Past Family History Father Family Medical History: Liver Disease Additional Family Medical History / Comment(s): Father at age 78 from cirrhosis of the liver. Mother Additional Family Medical History / Comment(s): Mother is alive in her 80s Sister(s) Family Medical History: Coronary Artery Disease (CAD) Additional Family Medical History / Comment(s): Patient has 2 sisters and one has from an overdose. She has 1 brother with no major medical problems. 4cm anyrusm General Exam Limitations: no limitations General appearance: alert, in no apparent distress Head exam: Present: atraumatic, normocephalic Eye exam: Present: normal appearance, PERRL ENT exam: Present: mucous membranes dry Neck exam: Present: normal inspection. Absent: tenderness, meningismus Respiratory exam: Present: normal lung sounds bilaterally. Absent: respiratory distress, wheezes Cardiovascular Exam: Present: regular rate, normal rhythm GI/Abdominal exam: Present: soft, tenderness (Mild epigastric tenderness to palpation,). Absent: distended, guarding, rebound Extremities exam: Present: normal inspection, normal capillary refill, other ( Distal pulses intact) Back exam: Present: CVA tenderness (R) Neurological exam: Present: alert, oriented X3, CN II-XII intact Psychiatric exam: Present: normal affect, normal mood Skin exam: Present: warm, dry, intact. Absent: cyanosis, diaphoretic Course Vital Signs 04/05/18 04/05/18 04/05/18 10:16 13:56 15:11 Temperature 98.3 F 97.5 F L 97.9 F Pulse Rate 97 81 74 Respiratory 18 20 18 Rate Blood Pressure 107/67 103/59 102/79 O2 Sat by Pulse 100 98 97 Oximetry - Reevaluation(s) Reevaluation #1: 04/05/18 15:14 On reevaluation after IV fluids, and multiple doses of IV pain medication, patient still has 8 out of 10 pain. She will be admitted for further evaluation and treatment. Medical Decision Making - Medical Decision Making 57 yo female presenting with abdominal pain, dysuria and discolored urine. Laboratory testing patient has elevated white blood cell count 13.1, CMP is significant for an elevated serum glucose of 319 otherwise unremarkable. Urinalysis is positive for nitrate, and greater than 182 red cells and white blood cells. There is many bacteria. Culture pending. CT is obtained, shows a 3 mm distal stone in the left ureter, there is left-sided hydronephrosis and signs of bilateral pyelonephritis which is consistent with laboratory testing. Lipase is negative. Patient is given IV fluids, IV antibiotics, and multiple doses of pain medication. Given the distal stone, case is discussed with urology on-call, Dr. Mahan. Given her ongoing symptoms, she will be admitted to internal medicine with urology on consult. - Lab Data Result diagrams: 04/05/18 11:16 04/05/18 11:16 Lab Results 04/05/18 04/05/18 04/05/18 Range/Units 10:51 11:16 11:16 WBC 13.1 H (3.8-10.6) k/uL RBC 4.14 (3.80-5.40) m/uL Hgb 12.5 (11.4-16.0) gm/dL Hct 38.1 (34.0-46.0) % MCV 92.2 (80.0-100.0) fL MCH 30.1 (25.0-35.0) pg MCHC 32.7 (31.0-37.0) g/dL RDW 12.7 (11.5-15.5) % Plt Count 245 (150-450) k/uL Neutrophils % 79 % Lymphocytes % 13 % Monocytes % 4 % Eosinophils % 1 % Basophils % 0 % Neutrophils # 10.4 H (1.3-7.7) k/uL Lymphocytes # 1.7 (1.0-4.8) k/uL Monocytes # 0.6 (0-1.0) k/uL Eosinophils # 0.1 (0-0.7) k/uL Basophils # 0.0 (0-0.2) k/uL Sodium 135 L (137-145) mmol/L Potassium 3.7 (3.5-5.1) mmol/L Chloride 101 (98-107) mmol/L Carbon Dioxide 20 L (22-30) mmol/L Anion Gap 14 mmol/L BUN 24 H (7-17) mg/dL Creatinine 0.73 (0.52-1.04) mg/dL Est GFR (CKD-EPI)AfAm >90 (>60 ml/min/1.73 sqM) Est GFR (CKD-EPI)NonAf >90 (>60 ml/min/1.73 sqM) Glucose 319 H (74-99) mg/dL Plasma Lactic Acid Timi (0.7-2.0) mmol/L Calcium 9.0 (8.4-10.2) mg/dL Total Bilirubin 0.6 (0.2-1.3) mg/dL AST 15 (14-36) U/L ALT 33 (9-52) U/L Alkaline Phosphatase 115 (38-126) U/L Total Protein 6.7 (6.3-8.2) g/dL Albumin 3.7 (3.5-5.0) g/dL Amylase <30 L (30-110) U/L Lipase 26 (23-300) U/L Urine Color Light Red Urine Appearance Turbid H (Clear) Urine pH 5.5 (5.0-8.0) Ur Specific [place] 1.013 (1.001-1.035) Urine Protein 1+ H (Negative) Urine Glucose (UA) 4+ H (Negative) Urine Ketones 1+ H (Negative) Urine Blood Large H (Negative) Urine Nitrite Positive H (Negative) Urine Bilirubin Negative (Negative) Urine Urobilinogen <2.0 (<2.0) mg/dL Ur Leukocyte Esterase Large H (Negative) Urine RBC >182 H (0-5) /hpf Urine WBC >182 H (0-5) /hpf Urine WBC Clumps Many H (None) /hpf Ur Squamous Epith Cells 2 (0-4) /hpf Urine Bacteria Many H (None) /hpf 04/05/18 Range/Units 11:16 WBC (3.8-10.6) k/uL RBC (3.80-5.40) m/uL Hgb (11.4-16.0) gm/dL Hct (34.0-46.0) % MCV (80.0-100.0) fL MCH (25.0-35.0) pg MCHC (31.0-37.0) g/dL RDW (11.5-15.5) % Plt Count (150-450) k/uL Neutrophils % % Lymphocytes % % Monocytes % % Eosinophils % % Basophils % % Neutrophils # (1.3-7.7) k/uL Lymphocytes # (1.0-4.8) k/uL Monocytes # (0-1.0) k/uL Eosinophils # (0-0.7) k/uL Basophils # (0-0.2) k/uL Sodium (137-145) mmol/L Potassium (3.5-5.1) mmol/L Chloride (98-107) mmol/L Carbon Dioxide (22-30) mmol/L Anion Gap mmol/L BUN (7-17) mg/dL Creatinine (0.52-1.04) mg/dL Est GFR (CKD-EPI)AfAm (>60 ml/min/1.73 sqM) Est GFR (CKD-EPI)NonAf (>60 ml/min/1.73 sqM) Glucose (74-99) mg/dL Plasma Lactic Acid Timi 1.2 (0.7-2.0) mmol/L Calcium (8.4-10.2) mg/dL Total Bilirubin (0.2-1.3) mg/dL AST (14-36) U/L ALT (9-52) U/L Alkaline Phosphatase (38-126) U/L Total Protein (6.3-8.2) g/dL Albumin (3.5-5.0) g/dL Amylase (30-110) U/L Lipase (23-300) U/L Urine Color Urine Appearance (Clear) Urine pH (5.0-8.0) Ur Specific [place] (1.001-1.035) Urine Protein (Negative) Urine Glucose (UA) (Negative) Urine Ketones (Negative) Urine Blood (Negative) Urine Nitrite (Negative) Urine Bilirubin (Negative) Urine Urobilinogen (<2.0) mg/dL Ur Leukocyte Esterase (Negative) Urine RBC (0-5) /hpf Urine WBC (0-5) /hpf Urine WBC Clumps (None) /hpf Ur Squamous Epith Cells (0-4) /hpf Urine Bacteria (None) /hpf Disposition Clinical Impression: Calculus of kidney, Pyelonephritis Disposition: ADMITTED IP TO THIS [facility] Condition: Stable Is patient prescribed a controlled substance at d/c from ED?: No Referrals: None,Stated [Primary Care Provider] - 1-2 days Decision to Admit Reason: Admit from EC Decision Date: 04/05/18 Decision Time: 15:20
[2018-04-05 11:37] LABS: Basophils % (A) 0 %; Eosinophils # (A) 0.1 k/uL (0-0.7); Eosinophils % (A) 1 %; HCT 38.1 % (34.0-46.0); HGB 12.5 gm/dL (11.4-16.0); Lymphocytes # (A) 1.7 k/uL (1.0-4.8); Lymphocytes % (A) 13 %; MCH 30.1 pg (25.0-35.0); MCHC 32.7 g/dL (31.0-37.0); MCV 92.2 fL (80.0-100.0); Mean Platelet Volume 8.7; Monocytes # (A) 0.6 k/uL (0-1.0); Monocytes % (A) 4 %; Neutrophils # (A) 10.4 k/uL (1.3-7.7); Neutrophils % (A) 79 %; Platelet Count 245 k/uL (150-450); RBC 4.14 m/uL (3.80-5.40); RDW 12.7 % (11.5-15.5); WBC 13.1 k/uL (3.8-10.6)
[2018-04-05 11:47] LABS: ALT 33 U/L (9-52); AST 15 U/L (14-36); Albumin 3.7 g/dL (3.5-5.0); Alkaline Phosphatase 115 U/L (38-126); Amylase <30 U/L (30-110); Anion Gap 14 mmol/L; Blood Urea Nitrogen 24 mg/dL (7-17); Carbon Dioxide 20 mmol/L (22-30); Chloride 101 mmol/L (98-107); Glucose 319 mg/dL (74-99); Lipase 26 U/L (23-300); Potassium 3.7 mmol/L (3.5-5.1); Sodium 135 mmol/L (137-145); Total Bilirubin 0.6 mg/dL (0.2-1.3); Total Protein 6.7 g/dL (6.3-8.2)
[2018-04-05 11:51] LABS: Appearance,Urine Turbid (Clear); Bacteria,Urine Many /hpf; Bilirubin,Urine Negative (Negative); Blood,Urine Large (Negative); Color,Urine Light Red; Glucose,Urine (UA) 4+ (Negative); Ketones,Urine 1+ (Negative); Leukocyte Esterase,Urine Large (Negative); Nitrite,Urine Positive (Negative); PH, Urine 5.5 (5.0-8.0); Protein,Urine 1+ (Negative); RBC,Urine >182 /hpf (0-5); Specific Gravity,Urine 1.013 (1.001-1.035); Squamous Epithelial Cell,Urine 2 /hpf (0-4); Urobilinogen,Urine <2.0 mg/dL (<2.0); WBC,Urine >182 /hpf (0-5)
[2018-04-05] MEDS ORDERED: cefTRIAXone 2,000 MG in SODIUM CHLORIDE 0.9% 100 ML IVPB STA (12:03)
--- NOTE | 2018-04-05 13:10 | CT ---
EXAMINATION TYPE: CT abdomen pelvis w con DATE OF EXAM: 04/05/2018 HISTORY: Right sided upper abdominal pain, scarred pancreas and weight loss per patient. CT DLP: 689mGycm Automated Exposure Control for Dose Reduction was Utilized. CONTRAST: CT scan of the abdomen and pelvis is performed without oral and with IV Contrast, patient injected wi th 100 mL of Isovue 300. COMPARISON: CTA aorta December 13, 2017 FINDINGS: LUNG BASES: Moderate underlying emphysematous change is present. LIVER/GB: No significant abnormality is appreciated. PANCREAS: There is ductal dilatation with scattered glandular calcifications throughout the pancreas, CT findings consistent with product of chronic pancreatitis. No significant change from prior. SPLEEN: No significant abnormality is seen. ADRENALS: No significant abnormality is seen. KIDNEYS: There are wedge-shaped areas of heterogeneous nonenhancement throughout both kidneys for ref erence medial upper pole level right kidney axial image 27 series 7 and lateral aspect anteriorly upp er pole level left kidney series 7 image 23., Findings are suspicious for multifocal bilateral pyelon ephritis. There is symmetric cortical medullary uptake and excretion from both kidneys. There is new mild left-sided pyelocaliectasis and mild left-sided hydroureter seen best coronal image 41 with obst ructing 3 mm calculus mid to distal left ureter coronal image 47 identified. BOWEL: Evaluation of bowel slightly suboptimal secondary to lack of enteric contrast. No suspicious d ilatation is present. UTERUS/ADNEXA: Anteverted uterus is seen. LYMPH NODES: No greater than 1cm abdominal or pelvic lymph nodes are appreciated. OSSEOUS STRUCTURES: Sclerosis involving superior T11 vertebra is redemonstrated and unchanged. OTHER: Moderate calcified plaque of the infrarenal abdominal aorta is noted. IMPRESSION: There is 3 mm calculus mid to distal left ureter causing mild left-sided hydronephrosis. No delayed excretion is present. Suspect multifocal bilateral pyelonephritis, correlate clinically an d with urine and lab values.
[2018-04-05] MEDS ORDERED: SODIUM CHLORIDE 0.9% 1,000 ML IV ONE (13:18)
[2018-04-05] MEDS ORDERED: KETOROLAC 30 MG/ML 1 ML VIAL IVP STA (14:09)
[2018-04-05] MEDS ORDERED: MORPHINE SULFATE 4 MG/ML SYRINGE IVP STA (14:09)
[2018-04-05] MEDS ORDERED: ONDANSETRON 4 MG/2 ML VIAL IVP PRN (15:12)
[2018-04-05] MEDS ORDERED: NALOXONE 0.4 MG/ML 1 ML VIAL IV PRN (15:12)
[2018-04-05] MEDS: SODIUM CHLORIDE 0.9% 1,000 ML IV SCH (16:57)
[2018-04-05 17:09] LABS: Glucose,Whole Blood 267 mg/dL (75-99)
[2018-04-05] MEDS: INSULIN ASPART 100 UNIT/ML 1 ML 10 ML VIAL SQ SCH ×2 (17:50→21:57)
[2018-04-05] MEDS: KETOROLAC 30 MG/ML 1 ML VIAL IVP PRN ×2 (17:53→23:11)
--- NOTE | 2018-04-05 18:20 | P.HPIM ---
History of Present Illness 57 yo female presents for evaluation of abdominal pain. Patient has had 3 umbilical abdominal pain for the past several days, this does radiate to her bilateral flanks. 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 She has also had some episodes of nausea with one episode of vomiting. She is having diarrhea over the past 2 days as well. No fever or chills. She presents today with concerns for discoloration of her urine. This has been present for the past 24 hours. Patient does have a nephrolithiasis 3 mm on the left ureter. With some hydronephrosis urology was consulted. Patient does have elevated white blood cell count along with the dark urine hematuria and elevated RBC positive leukocyte Estrace and nitrate. Patient denied any dysuria suprapubic Pain or tenderness. Patient was given a dose of Rocephin not containing any more antibiotics untill urology evaluates the patient. Review of Systems REVIEW OF SYSTEMS: CONSTITUTIONAL: No fever, no malaise, no fatigue. HEENT: No recent visual problems or hearing problems. Denied any sore throat. CARDIOVASCULAR: No chest pain, orthopnea, PND, no palpitations, no syncope. PULMONARY: No shortness of breath, no cough, no hemoptysis. GASTROINTESTINAL: As mentioned in HPI NEUROLOGICAL: No headaches, no weakness, no numbness. HEMATOLOGICAL: Denies any bleeding or petechiae. GENITOURINARY: Denies any burning micturition, frequency, or urgency. MUSCULOSKELETAL/RHEUMATOLOGICAL: Denies any joint pain, swelling, or any muscle pain. ENDOCRINE: Denies any polyuria or polydipsia. The rest of the 14-point review of systems is negative. Past Medical History Past Medical History: CVA/TIA, Diabetes Mellitus, Hyperlipidemia Additional Past Medical History / Comment(s): depression , Chronic pancreatitis , HEART MURMUR AND ENLARGED AORTA History of Any Multi-Drug Resistant Organisms: None Reported Past Surgical History: Appendectomy Additional Past Surgical History / Comment(s): CYST REMOVED FROM NECK. COLONOSCOPY Past Anesthesia/Blood Transfusion Reactions: No Reported Reaction Past Psychological History: Anxiety, Bipolar, Depression, PTSD Smoking Status: Current every day smoker Past Alcohol Use History: None Reported Past Drug Use History: None Reported - Past Family History Father Family Medical History: Liver Disease Additional Family Medical History / Comment(s): Father at age 78 from cirrhosis of the liver. Mother Additional Family Medical History / Comment(s): Mother is alive in her 80s Sister(s) Family Medical History: Coronary Artery Disease (CAD) Additional Family Medical History / Comment(s): Patient has 2 sisters and one has from an overdose. She has 1 brother with no major medical problems. 4cm anyrusm Medications and Allergies Home Medications Medication Instructions Recorded Confirmed Type hydrOXYzine HCL 25 mg PO DAILY 05/04/17 04/05/18 History metFORMIN HCL [Glucophage] 500 mg PO BID 05/04/17 04/05/18 History Insulin Glargine,Hum.rec.anlog 10 unit SQ HS 12/13/17 04/05/18 History [Basaglar Kwikpen U-100] Ibuprofen [Motrin] 600 mg PO Q8HR PRN 04/05/18 04/05/18 History Omeprazole 20 mg PO DAILY 04/05/18 04/05/18 History Allergies Allergy/AdvReac Type Severity Reaction Status Date / Time No Known Allergies Allergy Verified 04/05/18 11:24 Physical Exam Vitals: Vital Signs Temp Pulse Pulse Resp BP BP Pulse Ox 04/05/18 16:53 98.2 F 85 20 100/71 99 04/05/18 16:29 97.4 F L 83 16 119/53 97 04/05/18 15:11 97.9 F 74 18 102/79 97 04/05/18 13:56 97.5 F L 81 20 103/59 98 04/05/18 10:16 98.3 F 97 18 107/67 100 Intake and Output 04/05/18 04/05/18 04/05/18 06:59 14:59 22:59 Other: Weight 56.699 kg PHYSICAL EXAMINATION: GENERAL: The patient is alert and oriented x3, not in any acute distress. Well developed, well nourished. HEENT: Pupils are round and equally reacting to light. EOMI. No scleral icterus. No conjunctival pallor. Normocephalic, atraumatic. No pharyngeal erythema. No thyromegaly. CARDIOVASCULAR: S1 and S2 present. No murmurs, rubs, or gallops. PULMONARY: Chest is clear to auscultation, no wheezing or crackles. ABDOMEN: Soft, nontender, nondistended, normoactive bowel sounds. No palpable organomegaly. MUSCULOSKELETAL: No joint swelling or deformity. EXTREMITIES: No cyanosis, clubbing, or pedal edema. NEUROLOGICAL: Gross neurological examination did not reveal any focal deficits. SKIN: No rashes. Results CBC & Chem 7: 04/05/18 11:16 04/05/18 11:16 Labs: Abnormal Lab Results - Last 24 Hours (Table) 04/05/18 04/05/18 04/05/18 Range/Units 10:51 11:16 11:16 WBC 13.1 H (3.8-10.6) k/uL Neutrophils # 10.4 H (1.3-7.7) k/uL Sodium 135 L (137-145) mmol/L Carbon Dioxide 20 L (22-30) mmol/L BUN 24 H (7-17) mg/dL Glucose 319 H (74-99) mg/dL POC Glucose (mg/dL) (75-99) mg/dL Amylase <30 L (30-110) U/L Urine Appearance Turbid H (Clear) Urine Protein 1+ H (Negative) Urine Glucose (UA) 4+ H (Negative) Urine Ketones 1+ H (Negative) Urine Blood Large H (Negative) Urine Nitrite Positive H (Negative) Ur Leukocyte Esterase Large H (Negative) Urine RBC >182 H (0-5) /hpf Urine WBC >182 H (0-5) /hpf Urine WBC Clumps Many H (None) /hpf Urine Bacteria Many H (None) /hpf 04/05/18 Range/Units 17:06 WBC (3.8-10.6) k/uL Neutrophils # (1.3-7.7) k/uL Sodium (137-145) mmol/L Carbon Dioxide (22-30) mmol/L BUN (7-17) mg/dL Glucose (74-99) mg/dL POC Glucose (mg/dL) 267 H (75-99) mg/dL Amylase (30-110) U/L Urine Appearance (Clear) Urine Protein (Negative) Urine Glucose (UA) (Negative) Urine Ketones (Negative) Urine Blood (Negative) Urine Nitrite (Negative) Ur Leukocyte Esterase (Negative) Urine RBC (0-5) /hpf Urine WBC (0-5) /hpf Urine WBC Clumps (None) /hpf Urine Bacteria (None) /hpf Microbiology - Last 24 Hours (Table) 04/05/18 10:51 Urine Culture - Preliminary Urine,Voided Thrombosis Risk Factor Assmnt - Choose All That Apply Each Factor Represents 1 point: Age 41-60 years Other Risk Factors: Yes Each Risk Factor Represents 3 Points: Family history of DVT/PE Other congenital or acquired thrombophilia - If yes, enter type in comment: No Thrombosis Risk Factor Assessment Total Risk Factor Score: 4 Thrombosis Risk Factor Assessment Level: Moderate Risk Assessment and Plan Plan: Left-sided ureteral calculi: Patient will be continued on IV fluids neurology was consulted suspicion is low for urinary tract infection or in spite of urine analysis findings. We'll get though pain and off urologist regarding hydronephrosis versus pyelonephritis and will be started on antibiotics if they recommend so. -Leukocytosis reactive secondary to nephrolithiasis Type 2 diabetes mellitus: Patient will be resumed on home regimen and titrate depending on her blood sugars next and-hyperlipidemia Hypertension depression For above-mentioned chronic medical problems patient will be resumed on appropriate home medications.
[2018-04-05 20:27] LABS: Glucose,Whole Blood 289 mg/dL (75-99)
[2018-04-05] MEDS: FAMOTIDINE 20 MG TAB PO SCH (21:57)
[2018-04-05] MEDS: INSULIN DETEMIR 100 UNIT/ML 10 ML VIAL SQ SCH (21:57)
[2018-04-05] MEDS: QUEtiapine 100 MG TAB PO SCH (22:21)
[2018-04-05] MEDS: MELATONIN 3 MG TABLET PO SCH (22:23)
[2018-04-06] MEDS ORDERED: SODIUM CHLORIDE 0.9% 1,000 ML IV ONE ×2 (00:10→05:15)
[2018-04-06 04:42] LABS: Glucose,Whole Blood 264 mg/dL (75-99)
[2018-04-06 04:56] LABS: Basophils % (A) 0 %; Eosinophils # (A) 0.2 k/uL (0-0.7); Eosinophils % (A) 3 %; HCT 30.5 % (34.0-46.0); HGB 10.3 gm/dL (11.4-16.0); Lymphocytes # (A) 1.9 k/uL (1.0-4.8); Lymphocytes % (A) 25 %; MCH 30.8 pg (25.0-35.0); MCHC 33.7 g/dL (31.0-37.0); MCV 91.3 fL (80.0-100.0); Mean Platelet Volume 8.7; Monocytes # (A) 0.4 k/uL (0-1.0); Monocytes % (A) 5 %; Neutrophils % (A) 66 %; Platelet Count 194 k/uL (150-450); RBC 3.35 m/uL (3.80-5.40); RDW 12.6 % (11.5-15.5); WBC 7.7 k/uL (3.8-10.6)
[2018-04-06 05:03] LABS: ALT 27 U/L (9-52); AST 10 U/L (14-36); Albumin 2.5 g/dL (3.5-5.0); Alkaline Phosphatase 78 U/L (38-126); Anion Gap 5 mmol/L; Blood Urea Nitrogen 16 mg/dL (7-17); Calcium 7.9 mg/dL (8.4-10.2); Carbon Dioxide 23 mmol/L (22-30); Chloride 110 mmol/L (98-107); Glucose 241 mg/dL (74-99); Potassium 3.4 mmol/L (3.5-5.1); Sodium 138 mmol/L (137-145); Total Bilirubin 0.2 mg/dL (0.2-1.3); Total Protein 4.9 g/dL (6.3-8.2)
[2018-04-06 05:07] LABS: Hemoglobin A1C 11.1 % (4.0-6.0)
[2018-04-06 05:44] LABS: Basophils % (A) 0 %; Eosinophils # (A) 0.2 k/uL (0-0.7); Eosinophils % (A) 3 %; HCT 30.5 % (34.0-46.0); Lymphocytes # (A) 1.8 k/uL (1.0-4.8); Lymphocytes % (A) 26 %; MCH 30.9 pg (25.0-35.0); MCHC 32.9 g/dL (31.0-37.0); MCV 93.8 fL (80.0-100.0); Mean Platelet Volume 8.3; Monocytes # (A) 0.3 k/uL (0-1.0); Monocytes % (A) 5 %; Neutrophils # (A) 4.4 k/uL (1.3-7.7); Neutrophils % (A) 64 %; Platelet Count 176 k/uL (150-450); RBC 3.25 m/uL (3.80-5.40); RDW 12.8 % (11.5-15.5); WBC 6.9 k/uL (3.8-10.6)
--- NOTE | 2018-04-06 05:47 | P.CNPUL ---
History of Present Illness Consult date: 04/06/18 Reason for consult: other Chief complaint: Urinary tract infection/sepsis/pyelonephritis History of present illness: Pulmonary/critical care consult dated 04/06/2018 57-year-old female who presents to the emergency department with abdominal pain. She apparently is abdominal pain for about 3 days prior to admission. She also admits to pain to the pelvic area and bilateral flank area. The patient was found to have urinary tract infection/pyelonephritis. Also, computed tomography scan of the abdomen showed a left ureteral calculus. She was admitted to the fourth floor for an episode of urinary tract infection pyelonephritis but because of hypotension, she was transferred to the intensive care unit. No rapid response team was called. She received fluids on the floor and then some additional fluids here in the intensive care unit. Dr. Cavazos was notified. Currently, the patient has had has had a reasonable blood pressure since coming to the ICU. Her maintenance of been above 70. She's awake and alert. She apparently has a history of poorly controlled diabetes and pancreatitis from alcohol abuse. The patient hasn't seen a doctor in a long period of time. She see Dr. Nettles. Doesn't have a current physician. In addition to diabetes, she has history of pancreatitis from alcohol abuse hyperlipidemia and previous CVA. She also apparently has history of depression. Surgical history includes a colonoscopy and appendectomy. She is a current every day heavy smoker. She states she quit drinking 3 years ago. Denies illicit drug use. I asked her who is giving her her medications that she sees that she has refills on her medications. Her medications include hydroxyzine hydrochloride versus Vistaril/Atarax, metformin, insulin, ibuprofen and omeprazole. Review of Systems A 14 point review of system is positive for abdominal discomfort pelvic pain and bilateral flank pain. Symptoms have been present for at least 3 days. In addition, although she denies dysuria, she says she has cloudy and foul- smelling urine. Past Medical History Past Medical History: CVA/TIA, Diabetes Mellitus, GERD/Reflux, Hyperlipidemia Additional Past Medical History / Comment(s): 04/05/18 - PT WANTS BOTH THE FLU AND PNE VACCINE. depression bipolar anx, ptsd, Chronic pancreatitis, HEART MURMUR AND ENLARGED AORTA, tia's, colon polyps-benign. History of Any Multi-Drug Resistant Organisms: None Reported Past Surgical History: Appendectomy Additional Past Surgical History / Comment(s): CYST REMOVED FROM NECK. RT 3RD/ 4TH FINGER PARTIAL AMP D/T INJURY. COLONOSCOPY/POLYPECTOMY Past Anesthesia/Blood Transfusion Reactions: No Reported Reaction Smoking Status: Current every day smoker - Past Family History Father Family Medical History: Liver Disease Additional Family Medical History / Comment(s): Father at age 78 from cirrhosis of the liver. Mother Additional Family Medical History / Comment(s): Mother is alive in her 80s Sister(s) Family Medical History: Coronary Artery Disease (CAD) Additional Family Medical History / Comment(s): Patient has 2 sisters and one has from an overdose. She has 1 brother with no major medical problems. 4cm anyrusm Medications and Allergies Home Medications Medication Instructions Recorded Confirmed Type hydrOXYzine HCL 25 mg PO DAILY 05/04/17 04/05/18 History metFORMIN HCL [Glucophage] 500 mg PO BID 05/04/17 04/05/18 History Insulin Glargine,Hum.rec.anlog 10 unit SQ HS 12/13/17 04/05/18 History [Basaglar Kwikpen U-100] Ibuprofen [Motrin] 600 mg PO Q8HR PRN 04/05/18 04/05/18 History Omeprazole 20 mg PO DAILY 04/05/18 04/05/18 History QUEtiapine FUMARATE [SEROquel] 300 mg PO HS 04/05/18 04/05/18 History Allergies Allergy/AdvReac Type Severity Reaction Status Date / Time No Known Allergies Allergy Verified 04/05/18 11:24 Physical Exam Osteopathic Statement: *. No significant issues noted on an osteopathic structural exam other than those noted in the History and Physical/Consult. Vitals: Vital Signs Temp Pulse Pulse Resp BP BP Pulse Ox 04/06/18 05:15 76 12 95/60 99 04/06/18 05:00 83 12 91/62 100 04/06/18 04:45 99 F 77 13 105/61 100 04/06/18 03:36 16 70/42 97 04/06/18 01:36 74 90/52 04/06/18 01:07 70/46 04/06/18 00:25 98.2 F 83 16 73/50 96 04/05/18 21:50 90/72 04/05/18 21:49 98.1 F 74 16 86/60 99 04/05/18 16:53 98.2 F 85 20 100/71 99 04/05/18 16:29 97.4 F L 83 16 119/53 97 04/05/18 15:11 97.9 F 74 18 102/79 97 04/05/18 13:56 97.5 F L 81 20 103/59 98 04/05/18 10:16 98.3 F 97 18 107/67 100 Intake and Output 04/05/18 04/05/18 04/06/18 14:59 22:59 06:59 Intake Total 800 Output Total 250 Balance 800 -250 Intake: Intake, IV Titration 800 Amount Sodium Chloride 0.9% 1, 800 000 ml @ 100 mls/hr IV . Q10H [facility] Rx#:[id number] Output: Urine 250 Other: Weight 56.699 kg No acute distress, oriented 3. No supplemental oxygen at this time. HEENT examination is grossly unremarkable. Mucous membranes are dry. No oral lesions. Neck supple. Full range of motion. No adenopathy thyromegaly or neck vein distention. Cardiovascular examination reveals regular rhythm rate. S1-S2 normal. No S3 or S4. No discernible murmur noted. Lungs reveal clear breath sounds. Her sounds are equal bilaterally. No adventitious lung sounds including wheezes rhonchi or crackles. Abdomen soft bowel sounds are heard. No masses or tenderness. Extremities are intact. No cyanosis clubbing or edema. Skin is without rash or lesion. Neurologic examination is brief but nonfocal. Results - Laboratory Findings CBC and BMP: 04/06/18 04:48 04/06/18 04:48 Abnormal lab findings: Abnormal Labs 04/05/18 04/05/18 04/05/18 10:51 11:16 11:16 WBC 13.1 H RBC Hgb Hct Neutrophils # 10.4 H Sodium 135 L Potassium Chloride Carbon Dioxide 20 L BUN 24 H Glucose 319 H POC Glucose (mg/dL) Hemoglobin A1c Calcium AST Total Protein Albumin Amylase <30 L Urine Appearance Turbid H Urine Protein 1+ H Urine Glucose (UA) 4+ H Urine Ketones 1+ H Urine Blood Large H Urine Nitrite Positive H Ur Leukocyte Esterase Large H Urine RBC >182 H Urine WBC >182 H Urine WBC Clumps Many H Urine Bacteria Many H 04/05/18 04/05/18 04/05/18 11:16 17:06 20:24 WBC RBC Hgb Hct Neutrophils # Sodium Potassium Chloride Carbon Dioxide BUN Glucose POC Glucose (mg/dL) 267 H 289 H Hemoglobin A1c 11.1 H Calcium AST Total Protein Albumin Amylase Urine Appearance Urine Protein Urine Glucose (UA) Urine Ketones Urine Blood Urine Nitrite Ur Leukocyte Esterase Urine RBC Urine WBC Urine WBC Clumps Urine Bacteria 04/06/18 04/06/18 04/06/18 04:41 04:48 04:48 WBC RBC 3.35 L Hgb 10.3 L Hct 30.5 L Neutrophils # Sodium Potassium 3.4 L Chloride 110 H Carbon Dioxide BUN Glucose 241 H POC Glucose (mg/dL) 264 H Hemoglobin A1c Calcium 7.9 L AST 10 L Total Protein 4.9 L Albumin 2.5 L Amylase Urine Appearance Urine Protein Urine Glucose (UA) Urine Ketones Urine Blood Urine Nitrite Ur Leukocyte Esterase Urine RBC Urine WBC Urine WBC Clumps Urine Bacteria - Diagnostic Findings Additional studies: Labs and x-rays are reviewed. Assessment and Plan Assessment: Assessment Sepsis syndrome/septic shock, secondary to pyelonephritis/urinary tract infection complicated by left ureteral calculus and hydronephrosis. History of chronic alcohol abuse with pancreatitis, although the patient apparently quit drinking 3 years ago Poorly controlled diabetes mellitus History of ongoing tobacco use, rule out COPD Anemia of chronic disease History of CVA History of depression History of hyperlipidemia Plan: Plan dated 04/06/2018 Labs are reviewed. White count 7.7 down from 13.1. Hemoglobin down at 10.3 platelet count normal. His sodium normal. Potassium 3.4, chlorides 110 CO2 23. BUN and creatinine were 16 and 0.56 respectively. Urine is turbid. Nitrite was positive. Leukocyte esterase was large positive. There were 182 RBCs 182 WBCs and many bacteria. CT of the abdomen was consistent with a left ureteral calculus and some hydronephrosis on the left side. Currently, she not requiring any supplemental oxygen. She's on a saline IV 100 mL an hour. She has received [address] Quinteros ordered another liter of fluid here in the ICU. She's currently on Rocephin as an antibiotic. Her other medications appear to be appropriate. Overall prognosis remains guarded. She has appeared to respond to fluids. She has not required any pressors. Critical care time 32 minutes Time with Patient: Greater than 30
[2018-04-06 05:58] LABS: Anion Gap 7 mmol/L; Blood Urea Nitrogen 15 mg/dL (7-17); Calcium 7.6 mg/dL (8.4-10.2); Carbon Dioxide 17 mmol/L (22-30); Chloride 113 mmol/L (98-107); Glucose 203 mg/dL (74-99); Magnesium 1.2 mg/dL (1.6-2.3); Potassium 3.4 mmol/L (3.5-5.1); Sodium 137 mmol/L (137-145)
[2018-04-06 06:49] LABS: Glucose,Whole Blood 167 mg/dL (75-99)
--- NOTE | 2018-04-06 07:08 | XR ---
EXAMINATION TYPE: XR chest 1V DATE OF EXAM: 04/06/2018 HISTORY: Short of breath. REFERENCE: Previous study dated 12/13/2017. FINDINGS: Lung volumes are prominent. The lungs are clear. Pleural space are clear. The heart is not enlarged. IMPRESSION: PLEASE CORRELATE FOR COPD.
[2018-04-06] MEDS ORDERED: PANTOPRAZOLE 40 MG TABLET PO SCH (07:30)
[2018-04-06] MEDS: POTASSIUM CHLORIDE ER 20 MEQ TAB.ER PO SCH ×2 (07:40→08:43)
[2018-04-06] MEDS: FAMOTIDINE 20 MG TAB PO SCH ×2 (07:43→21:12)
[2018-04-06] MEDS: MAGNESIUM SULFATE-D5W PMX 1 GM in DEXTROSE/WATER 1 100ML.BAG IVPB SCH ×3 (07:44→10:17)
[2018-04-06] MEDS: INSULIN ASPART 100 UNIT/ML 1 ML 10 ML VIAL SQ SCH ×4 (07:45→20:58)
[2018-04-06] MEDS: HEPARIN SODIUM,PORCINE 5,000 UNIT/ML 1 ML VIAL SQ SCH ×2 (07:55→21:12)
[2018-04-06] MEDS: SODIUM CHLORIDE 0.9% 1,000 ML IV SCH (07:57)
[2018-04-06 10:13] VITALS: BMI 23.0
[2018-04-06] MEDS: KETOROLAC 30 MG/ML 1 ML VIAL IVP PRN ×2 (10:20→17:07)
[2018-04-06] MEDS: ACETAMINOPHEN TAB 325 MG TAB PO PRN (10:21)
[2018-04-06] MEDS: hydrOXYzine HCL 25 MG TAB PO SCH (10:45)
[2018-04-06 12:03] LABS: Glucose,Whole Blood 154 mg/dL (75-99)
--- NOTE | 2018-04-06 12:36 | P.GSCN ---
History of Present Illness Consult date: 04/06/18 Reason for Consult: Left ureteral calculus Requesting physician: Jeanne Frances History of present illness: The patient is a 57-year-old white female with a history of chronic pancreatitis due to alcohol abuse. She denies any prior history of urolithiasis. She was admitted yesterday with a several-day history of low back pain, predominantly left-sided, radiating into her legs. She reports associated chills, nausea, and vomiting. A CT scan revealed evidence of left hydronephrosis due to a 3 mm left distal ureteral calculus. Her condition worsened, requiring transfer to the ICU. She has been managed with fluid resuscitation and parenteral antibiotics. Urinalysis is consistent with a UTI, and the CT scan shows bilateral wedge shaped areas of diminished enhancement consistent with acute pyelonephritis. The CT scan does not show any additional calculi. Review of Systems - Constitutional Reports chills, Reports fever - Gastrointestinal Reports abdominal pain, Reports diarrhea, Reports nausea, Reports vomiting - Genitourinary Genitourinary: Reports hematuria - Musculoskeletal Reports low back pain Past Medical History Past Medical History: CVA/TIA, Diabetes Mellitus, GERD/Reflux, Hyperlipidemia Additional Past Medical History / Comment(s): 04/05/18 - PT WANTS BOTH THE FLU AND PNE VACCINE. depression bipolar anx, ptsd, Chronic pancreatitis, HEART MURMUR AND ENLARGED AORTA, tia's, colon polyps-benign. History of Any Multi-Drug Resistant Organisms: None Reported Past Surgical History: Appendectomy Additional Past Surgical History / Comment(s): CYST REMOVED FROM NECK. RT 3RD/ 4TH FINGER PARTIAL AMP D/T INJURY. COLONOSCOPY/POLYPECTOMY Past Anesthesia/Blood Transfusion Reactions: No Reported Reaction Smoking Status: Current every day smoker - Past Family History Father Family Medical History: Liver Disease Additional Family Medical History / Comment(s): Father at age 78 from cirrhosis of the liver. Mother Additional Family Medical History / Comment(s): Mother is alive in her 80s Sister(s) Family Medical History: Coronary Artery Disease (CAD) Additional Family Medical History / Comment(s): Patient has 2 sisters and one has from an overdose. She has 1 brother with no major medical problems. 4cm anyrusm Medications and Allergies Home Medications Medication Instructions Recorded Confirmed Type hydrOXYzine HCL 25 mg PO DAILY 05/04/17 04/05/18 History metFORMIN HCL [Glucophage] 500 mg PO BID 05/04/17 04/05/18 History Insulin Glargine,Hum.rec.anlog 10 unit SQ HS 12/13/17 04/05/18 History [Basaglar Kwikpen U-100] Ibuprofen [Motrin] 600 mg PO Q8HR PRN 04/05/18 04/05/18 History Omeprazole 20 mg PO DAILY 04/05/18 04/05/18 History QUEtiapine FUMARATE [SEROquel] 300 mg PO HS 04/05/18 04/05/18 History Allergies Allergy/AdvReac Type Severity Reaction Status Date / Time No Known Allergies Allergy Verified 04/05/18 11:24 Surgical - Exam Vital Signs Temp Pulse Resp BP Pulse Ox 98.3 F 97 18 107/67 100 04/05/18 10:16 04/05/18 10:16 04/05/18 10:16 04/05/18 10:16 04/05/18 10:16 - General well developed, well nourished, no distress - Respiratory normal respiratory effort - Abdomen Abdomen: soft, tender, no guarding, no rigid, no rebound, no distended (RUQ tenderness) - Psychiatric oriented to time, oriented to person, oriented to place, speech is normal, memory intact Results - Labs 04/06/18 05:25 04/06/18 05:25 Abnormal Lab Results - Last 24 Hours (Table) 04/05/18 04/05/18 04/05/18 Range/Units 11:16 17:06 20:24 RBC (3.80-5.40) m/uL Hgb (11.4-16.0) gm/dL Hct (34.0-46.0) % Potassium (3.5-5.1) mmol/L Chloride (98-107) mmol/L Carbon Dioxide (22-30) mmol/L Creatinine (0.52-1.04) mg/dL Glucose (74-99) mg/dL POC Glucose (mg/dL) 267 H 289 H (75-99) mg/dL Hemoglobin A1c 11.1 H (4.0-6.0) % Calcium (8.4-10.2) mg/dL Magnesium (1.6-2.3) mg/dL AST (14-36) U/L Total Protein (6.3-8.2) g/dL Albumin (3.5-5.0) g/dL 04/06/18 04/06/18 04/06/18 Range/Units 04:41 04:48 04:48 RBC 3.35 L (3.80-5.40) m/uL Hgb 10.3 L (11.4-16.0) gm/dL Hct 30.5 L (34.0-46.0) % Potassium 3.4 L (3.5-5.1) mmol/L Chloride 110 H (98-107) mmol/L Carbon Dioxide (22-30) mmol/L Creatinine (0.52-1.04) mg/dL Glucose 241 H (74-99) mg/dL POC Glucose (mg/dL) 264 H (75-99) mg/dL Hemoglobin A1c (4.0-6.0) % Calcium 7.9 L (8.4-10.2) mg/dL Magnesium (1.6-2.3) mg/dL AST 10 L (14-36) U/L Total Protein 4.9 L (6.3-8.2) g/dL Albumin 2.5 L (3.5-5.0) g/dL 04/06/18 04/06/18 04/06/18 Range/Units 05:25 05:25 06:48 RBC 3.25 L (3.80-5.40) m/uL Hgb 10.0 L (11.4-16.0) gm/dL Hct 30.5 L (34.0-46.0) % Potassium 3.4 L (3.5-5.1) mmol/L Chloride 113 H (98-107) mmol/L Carbon Dioxide 17 L (22-30) mmol/L Creatinine 0.50 L (0.52-1.04) mg/dL Glucose 203 H (74-99) mg/dL POC Glucose (mg/dL) 167 H (75-99) mg/dL Hemoglobin A1c (4.0-6.0) % Calcium 7.6 L (8.4-10.2) mg/dL Magnesium 1.2 L (1.6-2.3) mg/dL AST (14-36) U/L Total Protein (6.3-8.2) g/dL Albumin (3.5-5.0) g/dL 04/06/18 Range/Units 12:01 RBC (3.80-5.40) m/uL Hgb (11.4-16.0) gm/dL Hct (34.0-46.0) % Potassium (3.5-5.1) mmol/L Chloride (98-107) mmol/L Carbon Dioxide (22-30) mmol/L Creatinine (0.52-1.04) mg/dL Glucose (74-99) mg/dL POC Glucose (mg/dL) 154 H (75-99) mg/dL Hemoglobin A1c (4.0-6.0) % Calcium (8.4-10.2) mg/dL Magnesium (1.6-2.3) mg/dL AST (14-36) U/L Total Protein (6.3-8.2) g/dL Albumin (3.5-5.0) g/dL Microbiology - Last 24 Hours (Table) 04/05/18 10:51 Urine Culture - Preliminary Urine,Voided Gram Neg Bacilli Diabetes panel 04/05/18 04/06/18 04/06/18 Range/Units 11:16 04:48 05:25 Sodium 138 137 (137-145) mmol/L Potassium 3.4 L 3.4 L (3.5-5.1) mmol/L Chloride 110 H 113 H (98-107) mmol/L Carbon Dioxide 23 17 L (22-30) mmol/L BUN 16 15 (7-17) mg/dL Creatinine 0.56 0.50 L (0.52-1.04) mg/dL Glucose 241 H 203 H (74-99) mg/dL Hemoglobin A1c 11.1 H (4.0-6.0) % Calcium 7.9 L 7.6 L (8.4-10.2) mg/dL AST 10 L (14-36) U/L ALT 27 (9-52) U/L Alkaline Phosphatase 78 (38-126) U/L Total Protein 4.9 L (6.3-8.2) g/dL Albumin 2.5 L (3.5-5.0) g/dL Calcium panel 04/06/18 04/06/18 Range/Units 04:48 05:25 Calcium 7.9 L 7.6 L (8.4-10.2) mg/dL Phosphorus 3.0 (2.5-4.5) mg/dL Albumin 2.5 L (3.5-5.0) g/dL Pituitary panel 04/06/18 04/06/18 Range/Units 04:48 05:25 Sodium 138 137 (137-145) mmol/L Potassium 3.4 L 3.4 L (3.5-5.1) mmol/L Chloride 110 H 113 H (98-107) mmol/L Carbon Dioxide 23 17 L (22-30) mmol/L BUN 16 15 (7-17) mg/dL Creatinine 0.56 0.50 L (0.52-1.04) mg/dL Glucose 241 H 203 H (74-99) mg/dL Calcium 7.9 L 7.6 L (8.4-10.2) mg/dL Adrenal panel 04/06/18 04/06/18 Range/Units 04:48 05:25 Sodium 138 137 (137-145) mmol/L Potassium 3.4 L 3.4 L (3.5-5.1) mmol/L Chloride 110 H 113 H (98-107) mmol/L Carbon Dioxide 23 17 L (22-30) mmol/L BUN 16 15 (7-17) mg/dL Creatinine 0.56 0.50 L (0.52-1.04) mg/dL Glucose 241 H 203 H (74-99) mg/dL Calcium 7.9 L 7.6 L (8.4-10.2) mg/dL Total Bilirubin 0.2 (0.2-1.3) mg/dL AST 10 L (14-36) U/L ALT 27 (9-52) U/L Alkaline Phosphatase 78 (38-126) U/L Total Protein 4.9 L (6.3-8.2) g/dL Albumin 2.5 L (3.5-5.0) g/dL - Imaging CT scan - abdomen: report reviewed, image reviewed Assessment and Plan (1) Acute pyelonephritis Current Visit: Yes Status: Acute Code(s): N10 - ACUTE PYELONEPHRITIS SNOMED Code(s): 26019303 (2) Calculus of ureter Current Visit: Yes Status: Acute Code(s): N20.1 - CALCULUS OF URETER SNOMED Code(s): 74333081 (3) Hydronephrosis with obstructing calculus Current Visit: Yes Status: Acute Code(s): N13.2 - HYDRONEPHROSIS WITH RENAL AND URETERAL CALCULOUS OBSTRUCTION SNOMED Code(s): 86934785 Plan: A preliminary urine culture shows gram-negative bacilli. Clinically, she has acute pyelonephritis, likely bilateral, complicated on the left by a left distal ureteral calculus. She is receiving ceftriaxone, pending a final urine culture result. I have suggested she undergo cystoscopy with left ureteral stent insertion. The rationale for this was reviewed in detail with the patient. I explained the procedure, including potential risks, which include anesthesia, ureteral injury, and inability to successfully place the stent. She understands that this should improve all ability to treat her infection, and that once the infection has cleared she will undergo elective ureteral stent removal in the operating room, at which time left ureteroscopy with Holmium laser lithotripsy will be performed. Time with Patient: Greater than 30
[2018-04-06] MEDS: LACTATED RINGERS 1,000 ML IV SCH (13:20)
[2018-04-06 14:30] LABS: Magnesium 2.2 mg/dL (1.6-2.3); Potassium 3.6 mmol/L (3.5-5.1)
[2018-04-06] MEDS ORDERED: Potassium Replacement Protocol 1 EACH MISC MISCELLANE PRN (15:35)
--- NOTE | 2018-04-06 15:37 | P.PN ---
Subjective 57-year-old admitted with the left-sided hydronephrosis possible pyelonephritis and a 3 mm right ureteral stone patient was started on Rocephin. Patient blood pressure was low because of which she was transferred to ICU was given IV fluids patient blood pressure is doing well transfer will be transferred out of ICU patient is clinically doing well her pain improved considering her hydronephrosis and possible pyelonephritis urology is recommending a J-tube placement. Constitutional: Denied any fatigue denied any fever. Cardio vascular: denied any chest pain, palpitations Gastrointestinal denied any nausea vomiting Pulmonary: Denied any shortness of breath cough Neurologic denied any new focal deficits Objective - Vital Signs Vital signs: Vital Signs Temp 98.4 F 04/06/18 12:00 Pulse 67 04/06/18 13:00 Resp 14 04/06/18 13:00 BP 85/66 04/06/18 13:00 Pulse Ox 97 04/06/18 13:00 Intake & Output 04/05/18 04/06/18 04/06/18 18:59 06:59 18:59 Intake Total 2000 1000 Output Total 350 400 Balance 1650 600 Weight 56.699 kg 62.8 kg 62.8 kg Intake: IV 1200 1000 0.9 Nacl Fluid Bolus 1000 Magnesium Sulfate-D5w Pmx 300 1 gm In Dextrose/Water 1 100ml.bag @ 100 mls/hr IVPB Q1H [facility] Rx#: [id number] Sodium Chloride 0.9% 1, 200 700 000 ml @ 100 mls/hr IV . Q10H [facility] Rx#:[id number] Intake, IV Titration 800 Amount Sodium Chloride 0.9% 1, 800 000 ml @ 100 mls/hr IV . Q10H [facility] Rx#:[id number] Output: Urine 350 400 Other: Voiding Method Bedside Commode Bedside Commode - Exam PHYSICAL EXAMINATION: GENERAL: The patient is alert and oriented x3, not in any acute distress. Well developed, well nourished. HEENT: Pupils are round and equally reacting to light. EOMI. No scleral icterus. No conjunctival pallor. Normocephalic, atraumatic. No pharyngeal erythema. No thyromegaly. CARDIOVASCULAR: S1 and S2 present. No murmurs, rubs, or gallops. PULMONARY: Chest is clear to auscultation, no wheezing or crackles. ABDOMEN: Soft, nontender, nondistended, normoactive bowel sounds. No palpable organomegaly. MUSCULOSKELETAL: No joint swelling or deformity. EXTREMITIES: No cyanosis, clubbing, or pedal edema. NEUROLOGICAL: Gross neurological examination did not reveal any focal deficits. SKIN: No rashes. - Labs CBC & Chem 7: 04/06/18 05:25 04/06/18 14:03 Labs: Abnormal Lab Results - Last 24 Hours (Table) 04/05/18 04/05/18 04/05/18 Range/Units 11:16 17:06 20:24 RBC (3.80-5.40) m/uL Hgb (11.4-16.0) gm/dL Hct (34.0-46.0) % Potassium (3.5-5.1) mmol/L Chloride (98-107) mmol/L Carbon Dioxide (22-30) mmol/L Creatinine (0.52-1.04) mg/dL Glucose (74-99) mg/dL POC Glucose (mg/dL) 267 H 289 H (75-99) mg/dL Hemoglobin A1c 11.1 H (4.0-6.0) % Calcium (8.4-10.2) mg/dL Magnesium (1.6-2.3) mg/dL AST (14-36) U/L Total Protein (6.3-8.2) g/dL Albumin (3.5-5.0) g/dL 04/06/18 04/06/18 04/06/18 Range/Units 04:41 04:48 04:48 RBC 3.35 L (3.80-5.40) m/uL Hgb 10.3 L (11.4-16.0) gm/dL Hct 30.5 L (34.0-46.0) % Potassium 3.4 L (3.5-5.1) mmol/L Chloride 110 H (98-107) mmol/L Carbon Dioxide (22-30) mmol/L Creatinine (0.52-1.04) mg/dL Glucose 241 H (74-99) mg/dL POC Glucose (mg/dL) 264 H (75-99) mg/dL Hemoglobin A1c (4.0-6.0) % Calcium 7.9 L (8.4-10.2) mg/dL Magnesium (1.6-2.3) mg/dL AST 10 L (14-36) U/L Total Protein 4.9 L (6.3-8.2) g/dL Albumin 2.5 L (3.5-5.0) g/dL 04/06/18 04/06/18 04/06/18 Range/Units 05:25 05:25 06:48 RBC 3.25 L (3.80-5.40) m/uL Hgb 10.0 L (11.4-16.0) gm/dL Hct 30.5 L (34.0-46.0) % Potassium 3.4 L (3.5-5.1) mmol/L Chloride 113 H (98-107) mmol/L Carbon Dioxide 17 L (22-30) mmol/L Creatinine 0.50 L (0.52-1.04) mg/dL Glucose 203 H (74-99) mg/dL POC Glucose (mg/dL) 167 H (75-99) mg/dL Hemoglobin A1c (4.0-6.0) % Calcium 7.6 L (8.4-10.2) mg/dL Magnesium 1.2 L (1.6-2.3) mg/dL AST (14-36) U/L Total Protein (6.3-8.2) g/dL Albumin (3.5-5.0) g/dL 04/06/18 Range/Units 12:01 RBC (3.80-5.40) m/uL Hgb (11.4-16.0) gm/dL Hct (34.0-46.0) % Potassium (3.5-5.1) mmol/L Chloride (98-107) mmol/L Carbon Dioxide (22-30) mmol/L Creatinine (0.52-1.04) mg/dL Glucose (74-99) mg/dL POC Glucose (mg/dL) 154 H (75-99) mg/dL Hemoglobin A1c (4.0-6.0) % Calcium (8.4-10.2) mg/dL Magnesium (1.6-2.3) mg/dL AST (14-36) U/L Total Protein (6.3-8.2) g/dL Albumin (3.5-5.0) g/dL Microbiology - Last 24 Hours (Table) 04/05/18 10:51 Urine Culture - Preliminary Urine,Voided Gram Neg Bacilli Assessment and Plan Plan: Left-sided ureteral calculi: Patient will be continued on IV fluids, with possible pyelonephritis and urinary tract infection Rocephin as mentioned above. Patient blood pressures normally run slower do not believe patient has septic shock patient already improved overnight. Will be transferred out of ICU. -Leukocytosis reactive secondary to nephrolithiasis as per UTI Type 2 diabetes mellitus: Patient will be resumed on home regimen and titrate depending on her blood sugars -hyperlipidemia Hypertension depression For above-mentioned chronic medical problems patient will be resumed on appropriate home medications.
[2018-04-06] MEDS ORDERED: POTASSIUM CHLORIDE ER 20 MEQ TAB.ER PO ONE (16:00)
[2018-04-06 17:32] LABS: Glucose,Whole Blood 116 mg/dL (75-99)
[2018-04-06] MEDS ORDERED: SUCCINYLCHOLINE CHLORIDE 100 MG/5 ML SYR IV ONE (19:14)
[2018-04-06] MEDS ORDERED: PROPOFOL 10 MG/ML 20 ML VIAL IV ONE (19:14)
[2018-04-06] MEDS ORDERED: MIDAZOLAM 2 MG/2 ML VIAL ONE (19:14)
[2018-04-06] MEDS ORDERED: LACTATED RINGERS 1,000 ML IV ONE (19:14)
[2018-04-06] MEDS ORDERED: fentaNYL (PF) 50 MCG/ML 2 ML AMP ONE (19:14)
[2018-04-06] MEDS ORDERED: LIDOCAINE 1% INJ 10MG/ML (20 ML MDV) ONE (19:14)
--- NOTE | 2018-04-06 19:45 | P.OP ---
Date of Procedure: 04/06/18 Preoperative Diagnosis: Left Ureteral Calculus Postoperative Diagnosis: Same Procedure(s) Performed: Cystoscopy, Left Ureteral Stent Insertion Anesthesia: SERGEY Surgeon: Manjit Comer Estimated Blood Loss (ml): 0 IV fluids (ml): 200 Pathology: none sent Condition: stable Disposition: PACU Indications for Procedure: The patient is a 57-year-old woman hospitalized with pyelonephritis, complicated by a left distal ureteral calculus. She comes for stent placement. Operative Findings: Uncomplicated left ureteral stent insertion. No abnormalities noted. Description of Procedure: The patient was taken to the operating room and placed in the dorsolithotomy position, with legs supported in Sudeep stirrups. The external genitalia was prepped and draped sterilely. The 30 lens was used to introduce the 22-Vietnamese Stortz cystoscopic sheath through the urethra and into the bladder under direct vision. The bladder was examined in its entirety. Both ureteral orifices were of normal anatomic location and configuration. No tumors or foreign bodies were seen. A 0.035 inch Glidewire was passed through the cystoscope. The left ureteral orifice was cannulated, and the Glidewire was slowly advanced up to the renal pelvis. A 24 cm, 6-Vietnamese double-J ureteral stent was placed over the wire. Proper stent positioning was verified fluoroscopically and endoscopically. The bladder was emptied and the cystoscope removed. The patient tolerated the procedure well was taken to the recovery room in stable condition.
[2018-04-06 20:30] LABS: Glucose,Whole Blood 111 mg/dL (75-99)
[2018-04-06] MEDS: INSULIN DETEMIR 100 UNIT/ML 10 ML VIAL SQ SCH (21:11)
[2018-04-06] MEDS: QUEtiapine 100 MG TAB PO SCH (21:45)
--- NOTE | 2018-04-06 22:10 | FL ---
EXAMINATION TYPE: FL guidance operating room DATE OF EXAM: 04/06/2018 CLINICAL HISTORY: Obstructing ureter calculus. TECHNIQUE: Fluoroscopy. COMPARISON: CT abdomen and pelvis from yesterday. FINDINGS: Fluoroscopic guidance was provided during cystogram with ureter stent insertion procedure performed by urology is. A total of 7 seconds of fluoroscopic time was utilized during the procedure and single spot fluoroscopic image is acquired. Single image saved shows portion of left ureter sten t. IMPRESSION: As Above.
[2018-04-06] MEDS: MELATONIN 3 MG TABLET PO SCH (22:17)
[2018-04-07] MEDS: HYDROmorphone 1 MG/ML 1 ML SYRINGE IVP PRN ×7 (00:01→23:29)
[2018-04-07 06:21] LABS: Basophils % (A) 0 %; Eosinophils # (A) 0.1 k/uL (0-0.7); Eosinophils % (A) 1 %; HCT 30.9 % (34.0-46.0); HGB 10.4 gm/dL (11.4-16.0); Lymphocytes # (A) 1.7 k/uL (1.0-4.8); Lymphocytes % (A) 20 %; MCHC 33.5 g/dL (31.0-37.0); MCV 92.5 fL (80.0-100.0); Mean Platelet Volume 8.9; Monocytes # (A) 0.5 k/uL (0-1.0); Monocytes % (A) 6 %; Neutrophils # (A) 5.9 k/uL (1.3-7.7); Neutrophils % (A) 70 %; Platelet Count 213 k/uL (150-450); RBC 3.34 m/uL (3.80-5.40); RDW 12.9 % (11.5-15.5); WBC 8.4 k/uL (3.8-10.6)
[2018-04-07 06:42] LABS: Anion Gap 7 mmol/L; Blood Urea Nitrogen 7 mg/dL (7-17); Calcium 8.1 mg/dL (8.4-10.2); Carbon Dioxide 18 mmol/L (22-30); Chloride 112 mmol/L (98-107); Glucose 148 mg/dL (74-99); Magnesium 1.5 mg/dL (1.6-2.3); Phosphorus 3.2 mg/dL (2.5-4.5); Potassium 4.1 mmol/L (3.5-5.1); Sodium 137 mmol/L (137-145)
[2018-04-07] MEDS: LACTATED RINGERS 1,000 ML IV SCH ×2 (06:47→12:12)
[2018-04-07 07:06] LABS: Glucose,Whole Blood 164 mg/dL (75-99)
[2018-04-07] MEDS: INSULIN ASPART 100 UNIT/ML 1 ML 10 ML VIAL SQ SCH ×4 (07:13→21:19)
[2018-04-07] MEDS: HEPARIN SODIUM,PORCINE 5,000 UNIT/ML 1 ML VIAL SQ SCH ×2 (07:18→19:45)
[2018-04-07] MEDS: FAMOTIDINE 20 MG TAB PO SCH ×2 (07:18→19:45)
[2018-04-07] MEDS: hydrOXYzine HCL 25 MG TAB PO SCH (09:42)
--- NOTE | 2018-04-07 11:52 | P.PN ---
Subjective Progress Note Date: 04/07/18 Principal diagnosis: Acute septic shock secondary to pyelonephritis and left ureteral calculus with hydronephrosis. 57-year-old female who presents to the emergency department with abdominal pain. She apparently is abdominal pain for about 3 days prior to admission. She also admits to pain to the pelvic area and bilateral flank area. The patient was found to have urinary tract infection/pyelonephritis. Also, computed tomography scan of the abdomen showed a left ureteral calculus. She was admitted to the fourth floor for an episode of urinary tract infection pyelonephritis but because of hypotension, she was transferred to the intensive care unit. No rapid response team was called. She received fluids on the floor and then some additional fluids here in the intensive care unit. Dr. Cavazos was notified. Currently, the patient has had has had a reasonable blood pressure since coming to the ICU. Her maintenance of been above 70. She's awake and alert. She apparently has a history of poorly controlled diabetes and pancreatitis from alcohol abuse. The patient hasn't seen a doctor in a long period of time. She see Dr. Nettles. Doesn't have a current physician. In addition to diabetes, she has history of pancreatitis from alcohol abuse hyperlipidemia and previous CVA. She also apparently has history of depression. Surgical history includes a colonoscopy and appendectomy. She is a current every day heavy smoker. She states she quit drinking 3 years ago. Denies illicit drug use. I asked her who is giving her her medications that she sees that she has refills on her medications. Her medications include hydroxyzine hydrochloride versus Vistaril/Atarax, metformin, insulin, ibuprofen and omeprazole. Patient was reevaluated today on 04/07/2018, she was transferred out of the ICU last night because she was noted to be hemodynamically stable, patient had stent placement by urology, she remains on antibiotics for what seems to be gram -negative urinary tract infection. Final identification and sensitivity is pending. Patient is feeling great today, relatively asymptomatic. Denies any fever no chills, no dizziness, no lightheadedness, no chest pain, no dysuria and no frequency no urgency. Her WBC count is 8.4 hemoglobin is 10.4. Electrolytes and renal profile are relatively normal. Objective - Vital Signs Vital signs: Vital Signs Temp 98.3 F 10/14/18 06:54 Pulse 59 L 04/07/18 09:42 Resp 12 04/07/18 09:42 BP 93/55 04/07/18 06:54 Pulse Ox 98 04/07/18 06:54 Intake & Output 04/06/18 04/07/18 04/07/18 18:59 06:59 18:59 Intake Total 1400 450 Output Total 550 300 Balance 850 150 Weight 62.8 kg Intake: IV 1400 450 Lactated Ringers 1,000 ml 300 150 @ 75 mls/hr IV .[id number] [facility] Rx#:[id number] Magnesium Sulfate-D5w Pmx 300 1 gm In Dextrose/Water 1 100ml.bag @ 100 mls/hr IVPB Q1H [facility] Rx#: [id number] Sodium Chloride 0.9% 1, 800 000 ml @ 100 mls/hr IV . Q10H [facility] Rx#:[id number] Output: Urine 550 300 Estimated Blood Loss 0 Other: Voiding Method Bedside Commode Bedside Commode Bedside Commode - Exam Physical Exam Gen.: Revealed a 57-year-old female in no distress. Eyes: PERRLA, EOMI, no icterus. HEENT: [No neck masses.] [No thyromegaly.] [No JVD.] No stridor. Chest: [Clear throughout, no crackles, no rhonchi, no wheezes.] Cardiac Exam: [Normal S1 and S2, no S3 gallop, no murmur.] Abdomen: [Soft, nontender, no megaly, no rebound, no guarding, normal bowel sounds.] Extremities: [No clubbing, no edema, no cyanosis.] Neurological Exam: [No focal neurologic deficit.] Lymphatics: No lymphadenopathy. Skin: No rashes or lesions Psychiatric: Normal mood, affect, and mental status examination. - Labs CBC & Chem 7: 04/07/18 05:35 04/07/18 05:35 Labs: Abnormal Lab Results - Last 24 Hours (Table) 04/06/18 04/06/18 04/06/18 Range/Units 12:01 17:30 20:28 RBC (3.80-5.40) m/uL Hgb (11.4-16.0) gm/dL Hct (34.0-46.0) % Chloride (98-107) mmol/L Carbon Dioxide (22-30) mmol/L Creatinine (0.52-1.04) mg/dL Glucose (74-99) mg/dL POC Glucose (mg/dL) 154 H 116 H 111 H (75-99) mg/dL Calcium (8.4-10.2) mg/dL Magnesium (1.6-2.3) mg/dL 04/07/18 04/07/18 04/07/18 Range/Units 05:35 05:35 07:03 RBC 3.34 L (3.80-5.40) m/uL Hgb 10.4 L (11.4-16.0) gm/dL Hct 30.9 L (34.0-46.0) % Chloride 112 H (98-107) mmol/L Carbon Dioxide 18 L (22-30) mmol/L Creatinine 0.46 L (0.52-1.04) mg/dL Glucose 148 H (74-99) mg/dL POC Glucose (mg/dL) 164 H (75-99) mg/dL Calcium 8.1 L (8.4-10.2) mg/dL Magnesium 1.5 L (1.6-2.3) mg/dL Microbiology - Last 24 Hours (Table) 04/05/18 10:51 Urine Culture - Final Urine,Voided Escherichia coli Assessment and Plan Assessment: Impression: 1 acute hypotension, responded to fluid boluses and a brief course of pressors, secondary to acute gram-negative urinary tract infection, acute pyelonephritis, left ureteral calculus and hydronephrosis. Status post left ureteral stent insertion by urology. Postoperative day #1 2 history of multiple comorbidities including chronic alcohol abuse with pancreatitis, quit drinking 3 years ago, poorly controlled diabetes, previous CVA, anemia of chronic disease, history of depression and history of hyperlipidemia. Recommendation: Continue antibiotics, and adjust accordingly based on the final culture from the urine. Continue fluids, ambulate, we'll continue to follow. Time with Patient: Less than 30
[2018-04-07 12:26] LABS: Glucose,Whole Blood 244 mg/dL (75-99)
--- NOTE | 2018-04-07 14:12 | P.PN ---
Subjective 57-year-old admitted with the left-sided hydronephrosis possible pyelonephritis and a 3 mm right ureteral stone patient was started on Rocephin. Patient blood pressure was low because of which she was transferred to ICU was given IV fluids patient blood pressure is doing well transfer will be transferred out of ICU patient is clinically doing well her pain improved considering her hydronephrosis and possible pyelonephritis urology is recommending a J-tube placement. 04/07/2018 patient had a left ureteral stent clinically doing well continue with antibiotics possibility of discharge tomorrow Constitutional: Denied any fatigue denied any fever. Cardio vascular: denied any chest pain, palpitations Gastrointestinal denied any nausea vomiting Pulmonary: Denied any shortness of breath cough Neurologic denied any new focal deficits Objective - Vital Signs Vital signs: Vital Signs Temp 98.3 F 04/07/18 06:54 Pulse 59 L 04/07/18 09:42 Resp 12 04/07/18 09:42 BP 93/55 04/07/18 06:54 Pulse Ox 98 04/07/18 06:54 Intake & Output 04/06/18 04/07/18 04/07/18 18:59 06:59 18:59 Intake Total 1400 450 525 Output Total 550 300 Balance 850 150 525 Weight 62.8 kg Intake: IV 1400 450 525 Lactated Ringers 1,000 ml 300 150 525 @ 75 mls/hr IV .[id number] [facility] Rx#:[id number] Magnesium Sulfate-D5w Pmx 300 1 gm In Dextrose/Water 1 100ml.bag @ 100 mls/hr IVPB Q1H [facility] Rx#: [id number] Sodium Chloride 0.9% 1, 800 000 ml @ 100 mls/hr IV . Q10H [facility] Rx#:[id number] Output: Urine 550 300 Estimated Blood Loss 0 Other: Voiding Method Bedside Commode Bedside Commode Bedside Commode - Exam PHYSICAL EXAMINATION: GENERAL: The patient is alert and oriented x3, not in any acute distress. Well developed, well nourished. HEENT: Pupils are round and equally reacting to light. EOMI. No scleral icterus. No conjunctival pallor. Normocephalic, atraumatic. No pharyngeal erythema. No thyromegaly. CARDIOVASCULAR: S1 and S2 present. No murmurs, rubs, or gallops. PULMONARY: Chest is clear to auscultation, no wheezing or crackles. ABDOMEN: Soft, nontender, nondistended, normoactive bowel sounds. No palpable organomegaly. MUSCULOSKELETAL: No joint swelling or deformity. EXTREMITIES: No cyanosis, clubbing, or pedal edema. NEUROLOGICAL: Gross neurological examination did not reveal any focal deficits. SKIN: No rashes. - Labs CBC & Chem 7: 04/07/18 05:35 04/07/18 05:35 Labs: Abnormal Lab Results - Last 24 Hours (Table) 04/06/18 04/06/18 04/07/18 Range/Units 17:30 20:28 05:35 RBC 3.34 L (3.80-5.40) m/uL Hgb 10.4 L (11.4-16.0) gm/dL Hct 30.9 L (34.0-46.0) % Chloride (98-107) mmol/L Carbon Dioxide (22-30) mmol/L Creatinine (0.52-1.04) mg/dL Glucose (74-99) mg/dL POC Glucose (mg/dL) 116 H 111 H (75-99) mg/dL Calcium (8.4-10.2) mg/dL Magnesium (1.6-2.3) mg/dL 04/07/18 04/07/18 04/07/18 Range/Units 05:35 07:03 11:57 RBC (3.80-5.40) m/uL Hgb (11.4-16.0) gm/dL Hct (34.0-46.0) % Chloride 112 H (98-107) mmol/L Carbon Dioxide 18 L (22-30) mmol/L Creatinine 0.46 L (0.52-1.04) mg/dL Glucose 148 H (74-99) mg/dL POC Glucose (mg/dL) 164 H 244 H (75-99) mg/dL Calcium 8.1 L (8.4-10.2) mg/dL Magnesium 1.5 L (1.6-2.3) mg/dL Microbiology - Last 24 Hours (Table) 04/05/18 10:51 Urine Culture - Final Urine,Voided Escherichia coli Assessment and Plan Plan: Left-sided ureteral calculi: With pyelonephritis, status post left ureteral stent continue with Rocephin, urine cultures are positive for E. coli which is pansensitive -Leukocytosis reactive secondary to nephrolithiasis as per UTI Type 2 diabetes mellitus: Patient will be resumed on home regimen and titrate depending on her blood sugars -hyperlipidemia Hypertension depression For above-mentioned chronic medical problems patient will be resumed on appropriate home medications.
[2018-04-07] MEDS: MAGNESIUM SULFATE-D5W PMX 1 GM in DEXTROSE/WATER 1 100ML.BAG IVPB SCH ×2 (14:37→15:40)
[2018-04-07 15:17] VITALS: RESP 16
[2018-04-07 17:20] LABS: Glucose,Whole Blood 228 mg/dL (75-99)
--- NOTE | 2018-04-07 18:29 | P.PN ---
Progress Note - Text Progress Note Date: 04/07/18 Ms. Tripp feels much better. She had a fever of 100.5F overnight, but is currently afebrile. Her urine is clear. Urine culture showed greater than 100, 000 pansensitive E. coli species. It would be my recommendation that she be discharged home on a 10-14 day course of antibiotics, and she will follow up with me in 1-2 weeks. Once it is confirmed that her UTI has resolved, she will be scheduled to undergo ureteroscopic removal of her left ureteral calculus. Please notify me if I can be of any further assistance.
[2018-04-07 19:14] VITALS: BP 115/73; PULSE 78; TEMP 98.6
[2018-04-07] MEDS: QUEtiapine 100 MG TAB PO SCH (19:45)
[2018-04-07] MEDS: MELATONIN 3 MG TABLET PO SCH (19:45)
[2018-04-07 20:27] LABS: Glucose,Whole Blood 146 mg/dL (75-99)
[2018-04-07] MEDS: INSULIN DETEMIR 100 UNIT/ML 10 ML VIAL SQ SCH (21:19)
[2018-04-08] MEDS: HYDROmorphone 1 MG/ML 1 ML SYRINGE IVP PRN (03:12)
[2018-04-08] MEDS: ACETAMINOPHEN TAB 325 MG TAB PO PRN (07:01)
[2018-04-08 07:26] LABS: Glucose,Whole Blood 159 mg/dL (75-99)
[2018-04-08] MEDS: INSULIN ASPART 100 UNIT/ML 1 ML 10 ML VIAL SQ SCH (08:59)
[2018-04-08] MEDS: HEPARIN SODIUM,PORCINE 5,000 UNIT/ML 1 ML VIAL SQ SCH (09:00)
[2018-04-08] MEDS: hydrOXYzine HCL 25 MG TAB PO SCH (09:00)
[2018-04-08] MEDS: FAMOTIDINE 20 MG TAB PO SCH (09:00)
[2018-04-08 10:59] LABS: Anion Gap 8 mmol/L; Blood Urea Nitrogen 6 mg/dL (7-17); Calcium 8.6 mg/dL (8.4-10.2); Carbon Dioxide 26 mmol/L (22-30); Chloride 104 mmol/L (98-107); Glucose 163 mg/dL (74-99); Magnesium 1.3 mg/dL (1.6-2.3); Phosphorus 4.3 mg/dL (2.5-4.5); Sodium 138 mmol/L (137-145)
[2018-04-08] MEDS: KETOROLAC 30 MG/ML 1 ML VIAL IVP PRN (11:14)
[2018-04-08 11:34] LABS: Basophils % (A) 0 %; Eosinophils # (A) 0.1 k/uL (0-0.7); Eosinophils % (A) 2 %; HCT 27.8 % (34.0-46.0); HGB 9.6 gm/dL (11.4-16.0); Lymphocytes # (A) 1.8 k/uL (1.0-4.8); Lymphocytes % (A) 23 %; MCHC 34.4 g/dL (31.0-37.0); Mean Platelet Volume 7.8; Monocytes # (A) 0.4 k/uL (0-1.0); Monocytes % (A) 5 %; Neutrophils # (A) 5.2 k/uL (1.3-7.7); Neutrophils % (A) 68 %; Platelet Count 281 k/uL (150-450); RBC 3.09 m/uL (3.80-5.40); RDW 12.9 % (11.5-15.5); WBC 7.6 k/uL (3.8-10.6)
[2018-04-08 11:54] LABS: Glucose,Whole Blood 250 mg/dL (75-99)
--- NOTE | 2018-04-08 13:08 | P.PN ---
Subjective Progress Note Date: 04/08/18 Principal diagnosis: Urinary sepsis Progress note dated 04/08/2018 This is a 57-year-old female who I saw in the intensive care unit on Sunday. She came with urinary sepsis/pyelonephritis and her symptoms include fever abdominal pain and flank pain. She was found have a dirty urine as well. In addition, computed tomography scan revealed a small left ureteral stone in the left stent was placed by Dr. Comer on Sunday night. The patient is doing well today. She also required fluid resuscitation more than anything else. She has a history of alcohol-induced pancreatitis poorly controlled diabetes and apparently has a history of a CVA. She also apparently has a history of hyperlipidemia. Her primary care physician is Dr. Liz. The patient apparently is being considered for possible discharge today. All the physicians have to agree that she is ready to be discharged. As expected, her urine was positive for Escherichia coli. She'll be discharged home on antibiotics and has a follow-up appointment with the urologist and a couple of weeks. Objective - Vital Signs Vital signs: Vital Signs Temp 98.6 F 04/07/18 19:11 Pulse 78 04/07/18 19:11 Resp 16 04/07/18 19:11 BP 115/73 04/07/18 19:11 Pulse Ox 98 04/07/18 19:11 Intake & Output 04/07/18 04/08/18 04/08/18 18:59 06:59 18:59 Intake Total 525 900 Balance 525 900 Intake: IV 525 900 Lactated Ringers 1,000 ml 525 900 @ 75 mls/hr IV .[id number] [facility] Rx#:[id number] Other: Voiding Method Bedside Commode Toilet # Voids 3 - Exam No acute distress, oriented 3. HEENT examination is grossly unremarkable. Mucous membranes are moist. No oral lesions. Neck supple. Full range of motion. No adenopathy thyromegaly or neck vein distention. Cardiovascular examination reveals regular rhythm rate. S1-S2 normal. No S3 or S4. No discernible murmur noted. Lungs reveal clear breath sounds. Breath sounds are equal bilaterally. No adventitious lung sounds including wheezes rhonchi or crackles. Abdomen soft bowel sounds are heard. No masses or tenderness. Extremities are intact. No cyanosis clubbing or edema. Skin is without rash or lesion. Neurologic examination is brief but nonfocal. - Labs CBC & Chem 7: 04/08/18 09:46 04/08/18 09:46 Labs: Abnormal Lab Results - Last 24 Hours (Table) 04/07/18 04/07/18 04/08/18 Range/Units 17:09 20:13 07:25 RBC (3.80-5.40) m/uL Hgb (11.4-16.0) gm/dL Hct (34.0-46.0) % BUN (7-17) mg/dL Glucose (74-99) mg/dL POC Glucose (mg/dL) 228 H 146 H 159 H (75-99) mg/dL Magnesium (1.6-2.3) mg/dL 04/08/18 04/08/18 04/08/18 Range/Units 09:46 09:46 11:40 RBC 3.09 L (3.80-5.40) m/uL Hgb 9.6 L (11.4-16.0) gm/dL Hct 27.8 L (34.0-46.0) % BUN 6 L (7-17) mg/dL Glucose 163 H (74-99) mg/dL POC Glucose (mg/dL) 250 H (75-99) mg/dL Magnesium 1.3 L (1.6-2.3) mg/dL Microbiology - Last 24 Hours (Table) 04/05/18 10:51 Urine Culture - Final Urine,Voided Escherichia coli Assessment and Plan Assessment: Assessment Sepsis syndrome/septic shock, secondary to pyelonephritis/urinary tract infection complicated by left ureteral calculus and hydronephrosis. Microbiologic studies revealed evidence of Escherichia coli. History of chronic alcohol abuse with pancreatitis, although the patient apparently quit drinking 3 years ago Poorly controlled diabetes mellitus History of ongoing tobacco use, rule out COPD Anemia of chronic disease History of CVA History of depression History of hyperlipidemia Plan: Plan dated 04/06/2018 Labs are reviewed. White count 7.7 down from 13.1. Hemoglobin down at 10.3 platelet count normal. His sodium normal. Potassium 3.4, chlorides 110 CO2 23. BUN and creatinine were 16 and 0.56 respectively. Urine is turbid. Nitrite was positive. Leukocyte esterase was large positive. There were 182 RBCs 182 WBCs and many bacteria. CT of the abdomen was consistent with a left ureteral calculus and some hydronephrosis on the left side. Currently, she not requiring any supplemental oxygen. She's on a saline IV 100 mL an hour. She has received [address] Quinteros ordered another liter of fluid here in the ICU. She's currently on Rocephin as an antibiotic. Her other medications appear to be appropriate. Overall prognosis remains guarded. She has appeared to respond to fluids. She has not required any pressors. Critical care time 32 minutes Plan dated 04/08/2018 The patient is apparently going to be also be discharged home today. It's up to the primary service and also the urology team. She does have a left ureteral stenting. I will have to be eventually removed. She apparently has an appointment with urologist couple of weeks. In addition, she'll follow-up with her primary care physician. I did family life counselor her today about the importance of taking better care of her stop. She has not been very compliant with his physicians. She probably does not drink anymore. She does smoke. I counseled about the importance of smoking cessation. She'll continue with outpatient antibiotics. Prognosis is guarded. Time with Patient: Less than 30
--- NOTE | 2018-04-09 07:46 | CDI ---
Last Revision, May 2017 Documentation Clarification Form Date: 04/09/2018 7:19:56 AM From: Lizette uHgo Phone: If you have a question about this query, please contact Bethany [facility] at [phone] between 8am and 5pm. Admit Date: 04/05/2018 3:12:00 PM Patient Name: Helena Tripp Visit Number: [id number] Discharge Date: 04/08/18 ATTENTION: The Clinical Documentation Specialists (CDI) and [facility] Coding Staff appreciate your assistance in clarifying documentation. Please respond to the clarification below the line at the bottom and electronically sign. The CDI & [facility] Coding staff will review the response and follow-up if needed. Please note: Queries are made part of the Legal Health Record. If you have any questions, please contact the author of this message via ITS. Jeanne Tran MD Documentation of Sepsis syndrome/septic shock secondary to pyelonephritis complicated UTI, ureteral calculus is documented in Dr. Chapman's 04/08 Progress Note. History/Risk Factors: acute pyelonephritis E coli, WBC/Left Shift 13.1 Vitals signs on admission: 98.3 F 97 bpm 18 107/67 100% RA Other Clinical Indicators: fever 101 on 04/06 Treatment: IV abx fluid resusciation Antibiotics: Rocephin IV Bolus: 4L fluid Saline 100mL an hour In your professional opinion, please clarify if patient had sepsis, severe sepsis with shock and was it POA. Sepsis ruled out Sepsis Severe Sepsis Septic Shock Other, please specify Unable to determine Present on Admission: Yes No Sepsis MTDD
--- NOTE | 2018-04-09 20:25 | P.DS ---
Providers Date of admission: 04/05/18 15:12 Expected date of discharge: 04/08/18 Attending physician: Jeanne Frances Consults: 04/05/18 15:13 Consult Physician Routine Consulting Provider: Franki Mahan Consult Reason/Comments: Left ureter stone and pyelonephritis Do you want consulting provider notified?: Already Contacted 04/06/18 03:44 Consult Physician Routine Consulting Provider: Keiry Stanley Consult Reason/Comments: ICU managment Do you want consulting provider notified?: Yes Primary care physician: Stated None Hospital Course: Final Diagnoses: Left-sided ureteral calculi: With pyelonephritis, status post left ureteral stent continue with Rocephin, urine cultures are positive for E. coli which is pansensitive -Leukocytosis reactive secondary to nephrolithiasis as per UTI Type 2 diabetes mellitus -hyperlipidemia Hypertension depression Hospital course:57-year-old admitted with the left-sided hydronephrosis possible pyelonephritis and a 3 mm right ureteral stone patient was started on Rocephin. Patient blood pressure was low because of which she was transferred to ICU was given IV fluids patient blood pressure is doing well transfer will be transferred out of ICU patient is clinically doing well her pain improved considering her hydronephrosis and possible pyelonephritis urology is recommending a J-tube placement. 04/07/2018 patient had a left ureteral stent clinically doing well continue with antibiotics possibility of discharge tomorrow. Significant clinical improvement. Cleared by all consults for discharge. Patient is being discharged home in a stable condition with guarded prognosis. Exam PHYSICAL EXAMINATION: GENERAL: The patient is alert and oriented x3, not in any acute distress. CARDIOVASCULAR: S1 and S2 present. No murmurs, rubs, or gallops. PULMONARY: Chest is clear to auscultation, no wheezing or crackles. ABDOMEN: Soft, nontender, nondistended, normoactive bowel sounds. No palpable organomegaly. NEUROLOGICAL: Gross neurological examination did not reveal any focal deficits. Microbiology 04/05/18 10:51 Urine,Voided Urine Culture - Final Escherichia coli The impression and plan of care has been dictated as directed. : I performed a history and examination of this patient, discussed the same with the dictator. I agree with the dictator's note ,documented as a scribe. Any additional findings or plans will be noted. Time taken: 35 minutes Patient Condition at Discharge: Stable Plan - Discharge Summary Discharge Rx Participant: No New Discharge Prescriptions: New Ciprofloxacin HCl [Cipro] 500 mg PO Q12HR #20 tablet Ibuprofen [Motrin] 400 mg PO Q6HR PRN #20 tab PRN Reason: Pain Acetaminophen Tab [Tylenol] 650 mg PO Q6HR PRN tab PRN Reason: Mild Pain Or Fever > 100.5 Continue hydrOXYzine HCL 25 mg PO DAILY metFORMIN HCL [Glucophage] 500 mg PO BID Insulin Glargine,Hum.rec.anlog [Basaglar Kwikpen U-100] 10 unit SQ HS Ibuprofen [Motrin] 600 mg PO Q8HR PRN PRN Reason: Pain Omeprazole 20 mg PO DAILY QUEtiapine FUMARATE [SEROquel] 300 mg PO HS Discharge Medication List hydrOXYzine HCL 25 mg PO DAILY 05/04/17 [History] metFORMIN HCL [Glucophage] 500 mg PO BID 05/04/17 [History] Insulin Glargine,Hum.rec.anlog [Basaglar Kwikpen U-100] 10 unit SQ HS 12/13/17 [ History] Ibuprofen [Motrin] 600 mg PO Q8HR PRN 04/05/18 [History] Omeprazole 20 mg PO DAILY 04/05/18 [History] QUEtiapine FUMARATE [SEROquel] 300 mg PO HS 04/05/18 [History] Acetaminophen Tab [Tylenol] 650 mg PO Q6HR PRN tab 04/08/18 [Rx] Ciprofloxacin HCl [Cipro] 500 mg PO Q12HR #20 tablet 04/08/18 [Rx] Ibuprofen [Motrin] 400 mg PO Q6HR PRN #20 tab 04/08/18 [Rx] Follow up Appointment(s)/Referral(s): Vivian Archuleta FNPBC [REFERRING] - 3 Days Manjit Comer MD [STAFF PHYSICIAN] - 1 Week (Office will be calling patient upon discharge to set up a follow up appointment) Ambulatory/Diagnostic Orders: Complete Blood Count w/diff [LAB.AMB] Time Frame: 3 Days, Location: None Selected Patient Instructions/Handouts: Urethral Stent Placement (DC), Urethral Stent Placement (GEN) Activity/Diet/Wound Care/Special Instructions: Drink plenty of fluids. Activity as tolerated. Discharge Disposition: HOME SELF-CARE
== END 2018-04-08 13:30 | disposition home or self-care (01) | DRG 872 ==
LOC: EC 10:04 → 3SUR 15:12 → 6ICU 04-06 04:41 → 3SUR 04-07 00:03 → 4SSUR 04-07 07:54
PROVIDERS: ADMIT Internal Medicine; ATTEND Internal Medicine
PROC: 0T778DZ Dilation of Left Ureter with Intraluminal Device, Via Natural or Artificial Opening Endoscopic (ICD-10-PCS; principal; 2018-04-06 17:00)
DX: A41.51 Sepsis due to Escherichia coli [E. coli] (principal); N10 Acute pyelonephritis; N13.6 Pyonephrosis; D63.8 Anemia in other chronic diseases classified elsewhere; E11.65 Type 2 diabetes mellitus with hyperglycemia; E78.5 Hyperlipidemia, unspecified; F17.200 Nicotine dependence, unspecified, uncomplicated; F31.9 Bipolar disorder, unspecified; F43.10 Post-traumatic stress disorder, unspecified; I10 Essential (primary) hypertension; K21.9 Gastro-esophageal reflux disease without esophagitis; F10.11 Alcohol abuse, in remission; Z82.49 Family history of ischemic heart disease and other diseases of the circulatory system; Z86.010 Personal history of colon polyps; Z86.73 Personal history of transient ischemic attack (TIA), and cerebral infarction without residual deficits; R31.9 Hematuria, unspecified; Z71.6 Tobacco abuse counseling; Z79.4 Long term (current) use of insulin; Z79.899 Other long term (current) drug therapy; M54.5 Low back pain; F41.9 Anxiety disorder, unspecified; R01.1 Cardiac murmur, unspecified; I77.810 Thoracic aortic ectasia
CPT/HCPCS: 36415; 71045; 74177; 80048; 80053; 81001; 82150; 83036; 83605; 83690; 83735; 84100; 84132; 85025; 87077; 87086; 87186; 96361; 96365; 96375; 96376; 99285

== ENCOUNTER 2018-04-15 18:28 | Emergency (ER) | payer OTHER ==
--- NOTE | 2018-04-15 18:56 | ED ---
General Adult HPI - General Source: patient Mode of arrival: ambulatory Limitations: no limitations <Sandor Alva - Last Filed: 04/15/18 22:18> <Racheal Cason P - Last Filed: 04/16/18 02:42> - General Chief complaint: Extremity Problem,Nontraumatic Stated complaint: Poss blood clot Time Seen by Provider: 04/15/18 18:47 - History of Present Illness Initial comments: 57-year-old female with a history of TIA, diabetes mellitus, hyperlipidemia, "enlarged aorta," and newly diagnosed pancreatic cancer presents to the emergency department for a chief complaint of left leg swelling and pain 6 hours. Patient was recently admitted for left-sided hydronephrosis possible pyelonephritis and a right ureteral stone about 10 days ago and was admitted for 4 days. Patient states she has had this leg pain and swelling for 6 hours. She states this started when she was at the [employer]. She denies any injuries or feeling a pop in her leg. She states when she was standing at the [employer] she noticed that her left ankle was more swollen than her right and has been having dull aching pain in the left calf for the past 6 hours. Patient does not have a known history of DVTs. Patient states her doctor told her to come in for ultrasound as well as blood work with magnesium level. Denies any shortness of breath or chest pain. Patient has no other complaints at this time including shortness of breath, chest pain, abdominal pain, nausea or vomiting, headache, or visual changes. (Sandor Alva) - Related Data Home Medications Medication Instructions Recorded Confirmed metFORMIN HCL [Glucophage] 500 mg PO BID 05/04/17 04/15/18 Insulin Glargine,Hum.rec.anlog 10 unit SQ HS 12/13/17 04/15/18 [Basaglar Kwikpen U-100] Omeprazole 20 mg PO DAILY 04/05/18 04/15/18 QUEtiapine FUMARATE [SEROquel] 300 mg PO HS 04/05/18 04/15/18 Multivitamins, Thera [Multivitamin 1 tab PO DAILY 04/15/18 04/15/18 (formulary)] Previous Rx's Medication Instructions Recorded Acetaminophen Tab [Tylenol] 650 mg PO Q6HR PRN tab 04/08/18 Ciprofloxacin HCl [Cipro] 500 mg PO Q12HR #20 tablet 04/08/18 Ibuprofen [Motrin] 400 mg PO Q6HR PRN #20 tab 04/08/18 Magnesium Oxide [Mag-Ox] 400 mg PO DAILY #3 tablet 04/15/18 Allergies Allergy/AdvReac Type Severity Reaction Status Date / Time No Known Allergies Allergy Verified 04/15/18 19:36 Review of Systems ROS Other: All systems not noted in ROS Statement are negative. <Sandor Alva P - Last Filed: 04/15/18 22:18> ROS Other: All systems not noted in ROS Statement are negative. <Racheal Cason P - Last Filed: 04/16/18 02:42> ROS Statement: Those systems with pertinent positive or pertinent negative responses have been documented in the HPI. Past Medical History Past Medical History: CVA/TIA, Diabetes Mellitus, GERD/Reflux, Hyperlipidemia, Renal Disease Additional Past Medical History / Comment(s): 04/05/18 - PT WANTS BOTH THE FLU AND PNE VACCINE. depression bipolar anx, ptsd, Chronic pancreatitis, HEART MURMUR AND ENLARGED AORTA, tia's, colon polyps-benign. History of Any Multi-Drug Resistant Organisms: None Reported Past Surgical History: Appendectomy Additional Past Surgical History / Comment(s): CYST REMOVED FROM NECK. RT 3RD/ 4TH FINGER PARTIAL AMP D/T INJURY. COLONOSCOPY/POLYPECTOMY Past Anesthesia/Blood Transfusion Reactions: No Reported Reaction Past Psychological History: Anxiety, Bipolar, Depression, PTSD Smoking Status: Current every day smoker Past Alcohol Use History: None Reported Past Drug Use History: Marijuana - Past Family History Father Family Medical History: Liver Disease Additional Family Medical History / Comment(s): Father at age 78 from cirrhosis of the liver. Mother Additional Family Medical History / Comment(s): Mother is alive in her 80s Sister(s) Family Medical History: Coronary Artery Disease (CAD) Additional Family Medical History / Comment(s): Patient has 2 sisters and one has from an overdose. She has 1 brother with no major medical problems. 4cm anyrusm <Sandor Alva P - Last Filed: 04/15/18 22:18> General Exam Limitations: no limitations General appearance: alert, in no apparent distress Head exam: Present: atraumatic, normocephalic, normal inspection Eye exam: Present: normal appearance, PERRL, EOMI. Absent: scleral icterus, conjunctival injection, periorbital swelling ENT exam: Present: normal exam, mucous membranes moist Neck exam: Present: normal inspection. Absent: tenderness, meningismus, lymphadenopathy Respiratory exam: Present: normal lung sounds bilaterally. Absent: respiratory distress, wheezes, rales, rhonchi, stridor Cardiovascular Exam: Present: regular rate, normal rhythm, normal heart sounds. Absent: systolic murmur, diastolic murmur, rubs, gallop, clicks Extremities exam: Present: full ROM (Full range of motion of the left lower extremity), tenderness (Patient does have tenderness to the left calf as well as left lateral malleolus. ), normal capillary refill (Capillary refill less than 2 seconds and DP pulse 2+ in the left lower extremity equal in the right lower extremity.), pedal edema (Patient does have 2+ pitting edema of the left lower extremity.), calf tenderness (Mild tenderness noted of the left calf. Positive Homans sign. No erythema or increased warmth but there is pitting edema noted.), other (Sensation intact in the left lower extremity.) Neurological exam: Present: alert, oriented X3, CN II-XII intact Psychiatric exam: Present: normal affect, normal mood <Sandor Alva P - Last Filed: 04/15/18 22:18> Vital Signs 04/15/18 04/15/18 04/15/18 18:38 19:35 21:39 Temperature 98.2 F Pulse Rate 87 76 Respiratory 18 16 16 Rate Blood Pressure 138/65 120/83 O2 Sat by Pulse 100 99 Oximetry 04/15/18 22:42 Temperature 97.0 F L Pulse Rate 86 Respiratory 16 Rate Blood Pressure 135/89 O2 Sat by Pulse 100 Oximetry Medical Decision Making - Lab Data Result diagrams: 04/15/18 19:23 04/15/18 19:23 <Sandor Alva P - Last Filed: 04/15/18 22:18> - Lab Data Result diagrams: 04/15/18 19:23 04/15/18 19:23 <Racheal Cason P - Last Filed: 04/16/18 02:42> - Medical Decision Making 57-year-old female presents to the emergency department for a chief complaint of left lower extremity pain and swelling 6 hours. Patient was at a [employer] when she noticed pain in her left leg as well as swelling. Patient denies any injuries. Patient states the pain as a dull aching pain. Patient was recently admitted to the hospital and apparently had a recent diagnosis of pancreatic cancer. Patient states she was sent here by her PCP for ultrasound as well as a recheck of magnesium level. Magnesium level was found to be 1.5. The emergency department which was replaced. X-ray of the tib-fib is negative for fracture. X-ray of the left foot is negative for fracture. Ultrasound of the left leg is negative for DVT. On reevaluation patient states pain is subsided significantly after pain medication. Patient again denies any shortness of breath or chest pain or abdominal pain. At this time patient can follow up with primary care for nonspecific unilateral ankle swelling as well as magnesium recheck. She is to return immediately to the emergency Department if she has any worsening symptoms. (Sandor Alva) I was available for consultation in the emergency department. The history and physical exam were done by the midlevel provider. I was consulted for this patient's care. I reviewed the case with the midlevel provider and based on their presentation of the patient, I agree with the assessment, medical decision making and plan of care as documented. (Racheal Cason) - Lab Data Lab Results 04/15/18 04/15/18 Range/Units 19:23 19:23 WBC 7.9 (3.8-10.6) k/uL RBC 3.54 L (3.80-5.40) m/uL Hgb 10.8 L (11.4-16.0) gm/dL Hct 33.1 L (34.0-46.0) % MCV 93.7 (80.0-100.0) fL MCH 30.4 (25.0-35.0) pg MCHC 32.5 (31.0-37.0) g/dL RDW 13.5 (11.5-15.5) % Plt Count 533 H (150-450) k/uL Neutrophils % 55 % Lymphocytes % 34 % Monocytes % 4 % Eosinophils % 4 % Basophils % 0 % Neutrophils # 4.3 (1.3-7.7) k/uL Lymphocytes # 2.7 (1.0-4.8) k/uL Monocytes # 0.3 (0-1.0) k/uL Eosinophils # 0.3 (0-0.7) k/uL Basophils # 0.0 (0-0.2) k/uL Sodium 136 L (137-145) mmol/L Potassium 3.9 (3.5-5.1) mmol/L Chloride 104 (98-107) mmol/L Carbon Dioxide 23 (22-30) mmol/L Anion Gap 9 mmol/L BUN 10 (7-17) mg/dL Creatinine 0.57 (0.52-1.04) mg/dL Est GFR (CKD-EPI)AfAm >90 (>60 ml/min/1.73 sqM) Est GFR (CKD-EPI)NonAf >90 (>60 ml/min/1.73 sqM) Glucose 303 H (74-99) mg/dL Calcium 8.9 (8.4-10.2) mg/dL Magnesium 1.5 L (1.6-2.3) mg/dL Total Bilirubin 0.2 (0.2-1.3) mg/dL AST 15 (14-36) U/L ALT 25 (9-52) U/L Alkaline Phosphatase 113 (38-126) U/L Total Protein 6.1 L (6.3-8.2) g/dL Albumin 3.2 L (3.5-5.0) g/dL Disposition Is patient prescribed a controlled substance at d/c from ED?: No Time of Disposition: 22:20 <Sandor Alva - Last Filed: 04/15/18 22:18> <Racheal Cason P - Last Filed: 04/16/18 02:42> Clinical Impression: Leg pain, left Disposition: HOME SELF-CARE Condition: Good Instructions: Leg Pain (ED) Additional Instructions: Please follow up with primary care provider in one to 2 days for low magnesium level as well as left leg pain. Please return immediately to the emergency department if you have any worsening symptoms. Prescriptions: Magnesium Oxide [Mag-Ox] 400 mg PO DAILY #3 tablet Referrals: Cecilia Cortez MD [Primary Care Provider] - 1-2 days Addendum entered and electronically signed by Sandor Alva PA-C 04/15/18 22 :50: Patient did not want to wait for IV magnesium. She was given 400 mg by mouth here and given a prescription for the next 3 days. She dates she is going to her doctor's office tomorrow.
[2018-04-15] MEDS ORDERED: SODIUM CHLORIDE 0.9% 1,000 ML IV STA (19:08)
[2018-04-15] MEDS ORDERED: MORPHINE SULFATE 4 MG/ML SYRINGE IVP STA (19:08)
[2018-04-15 19:33] LABS: Basophils % (A) 0 %; Eosinophils # (A) 0.3 k/uL (0-0.7); Eosinophils % (A) 4 %; HCT 33.1 % (34.0-46.0); HGB 10.8 gm/dL (11.4-16.0); Lymphocytes # (A) 2.7 k/uL (1.0-4.8); Lymphocytes % (A) 34 %; MCH 30.4 pg (25.0-35.0); MCHC 32.5 g/dL (31.0-37.0); MCV 93.7 fL (80.0-100.0); Monocytes # (A) 0.3 k/uL (0-1.0); Monocytes % (A) 4 %; Neutrophils # (A) 4.3 k/uL (1.3-7.7); Neutrophils % (A) 55 %; Platelet Count 533 k/uL (150-450); RBC 3.54 m/uL (3.80-5.40); RDW 13.5 % (11.5-15.5); WBC 7.9 k/uL (3.8-10.6)
[2018-04-15 19:36] VITALS: RESP 16
[2018-04-15 19:42] LABS: ALT 25 U/L (9-52); AST 15 U/L (14-36); Albumin 3.2 g/dL (3.5-5.0); Alkaline Phosphatase 113 U/L (38-126); Anion Gap 9 mmol/L; Blood Urea Nitrogen 10 mg/dL (7-17); Calcium 8.9 mg/dL (8.4-10.2); Carbon Dioxide 23 mmol/L (22-30); Chloride 104 mmol/L (98-107); Glucose 303 mg/dL (74-99); Magnesium 1.5 mg/dL (1.6-2.3); Potassium 3.9 mmol/L (3.5-5.1); Sodium 136 mmol/L (137-145); Total Bilirubin 0.2 mg/dL (0.2-1.3); Total Protein 6.1 g/dL (6.3-8.2)
--- NOTE | 2018-04-15 21:04 | US ---
EXAMINATION TYPE: US venous doppler duplex LE LT DATE OF EXAM: 04/15/2018 8:21 PM COMPARISON: NONE CLINICAL HISTORY: Pain. SIDE PERFORMED: Left TECHNIQUE: The lower extremity deep venous system is examined utilizing real time linear array sonog britt with graded compression, doppler sonography and color-flow sonography. VESSELS IMAGED: External Iliac Vein (EIV) Common Femoral Vein Deep Femoral Vein Greater Saphenous Vein * Femoral Vein Popliteal Vein Small Saphenous Vein * Proximal Calf Veins (* superficial vessels) Left Leg: Negative for DVT No evidence of DVT left leg. IMPRESSION: No evidence of deep venous thrombosis in the left leg.
--- NOTE | 2018-04-15 21:30 | XR ---
EXAMINATION TYPE: XR tibia fibula LT DATE OF EXAM: 04/15/2018 COMPARISON: NONE HISTORY: Pain TECHNIQUE: 2 views FINDINGS: Tibia and fibula appear intact. I see no fracture nor dislocation. Joint spaces are normal. IMPRESSION: Negative left tibia and fibula exam.
--- NOTE | 2018-04-15 21:31 | XR ---
EXAMINATION TYPE: XR foot complete LT DATE OF EXAM: 04/15/2018 COMPARISON: NONE HISTORY: Foot pain TECHNIQUE: 3 views FINDINGS: Metatarsals appear intact. I see no fracture nor dislocation. There are no erosions. IMPRESSION: Negative left foot exam.
[2018-04-15] MEDS ORDERED: MAGNESIUM OXIDE 400 MG TAB PO STA (21:57)
[2018-04-15] MEDS ORDERED: MAGNESIUM SULFATE-D5W PMX 1 GM in DEXTROSE/WATER 1 100ML.BAG IVPB ONE (21:57)
[2018-04-15 22:44] VITALS: BP 135/89; PULSE 86; TEMP 97
== END 2018-04-15 22:54 | disposition home or self-care (01) ==
LOC: EC 18:28
DX: M79.605 Pain in left leg (principal); M79.89 Other specified soft tissue disorders; R60.0 Localized edema; E11.9 Type 2 diabetes mellitus without complications; K21.9 Gastro-esophageal reflux disease without esophagitis; E78.5 Hyperlipidemia, unspecified; F31.9 Bipolar disorder, unspecified; F41.9 Anxiety disorder, unspecified; F17.200 Nicotine dependence, unspecified, uncomplicated; Z85.07 Personal history of malignant neoplasm of pancreas; Z86.010 Personal history of colon polyps; Z90.49 Acquired absence of other specified parts of digestive tract; Z98.890 Other specified postprocedural states; Z79.4 Long term (current) use of insulin; Z79.899 Other long term (current) drug therapy
CPT/HCPCS: 36415; 80053; 83735; 85025; 73590; 73630; 93971; 99284; 96365; 96375; 96361; J2270; J3475

== ENCOUNTER 2018-04-18 16:55 | Emergency (ER) | payer OTHER ==
[2018-04-18] MEDS ORDERED: SODIUM CHLORIDE 0.9% 1,000 ML IV STA (17:38)
[2018-04-18] MEDS ORDERED: KETOROLAC 30 MG/ML 1 ML VIAL IVP STA (17:53)
[2018-04-18] MEDS ORDERED: HYDROmorphone 1 MG/ML 1 ML SYRINGE IVP STA (17:53)
[2018-04-18] MEDS ORDERED: ONDANSETRON 4 MG/2 ML VIAL IVP STA (17:54)
[2018-04-18 18:03] LABS: Basophils # (A) 0.1 k/uL (0-0.2); Basophils % (A) 1 %; Eosinophils # (A) 0.3 k/uL (0-0.7); Eosinophils % (A) 3 %; HCT 33.2 % (34.0-46.0); HGB 11.2 gm/dL (11.4-16.0); Lymphocytes # (A) 2.1 k/uL (1.0-4.8); Lymphocytes % (A) 24 %; MCH 31.5 pg (25.0-35.0); MCHC 33.7 g/dL (31.0-37.0); MCV 93.6 fL (80.0-100.0); Monocytes # (A) 0.3 k/uL (0-1.0); Monocytes % (A) 3 %; Neutrophils # (A) 5.7 k/uL (1.3-7.7); Neutrophils % (A) 65 %; Platelet Count 511 k/uL (150-450); RBC 3.55 m/uL (3.80-5.40); RDW 13.6 % (11.5-15.5); WBC 8.8 k/uL (3.8-10.6)
[2018-04-18 18:13] LABS: ALT 21 U/L (9-52); AST 14 U/L (14-36); Albumin 3.5 g/dL (3.5-5.0); Alkaline Phosphatase 106 U/L (38-126); Amylase <30 U/L (30-110); Anion Gap 8 mmol/L; Blood Urea Nitrogen 11 mg/dL (7-17); Calcium 9.3 mg/dL (8.4-10.2); Carbon Dioxide 23 mmol/L (22-30); Chloride 103 mmol/L (98-107); Glucose 284 mg/dL (74-99); Lipase 14 U/L (23-300); Potassium 4.3 mmol/L (3.5-5.1); Sodium 134 mmol/L (137-145); Total Bilirubin 0.2 mg/dL (0.2-1.3); Total Protein 6.3 g/dL (6.3-8.2)
[2018-04-18 18:16] LABS: Partial Thromboplastin Time 25.8 sec (22.0-30.0); Prothrombin Time 10.2 sec (9.0-12.0)
[2018-04-18 18:17] LABS: Appearance,Urine Cloudy (Clear); Bilirubin,Urine Negative (Negative); Blood,Urine Large (Negative); Color,Urine Light Red; Glucose,Urine (UA) 3+ (Negative); Ketones,Urine Trace (Negative); Leukocyte Esterase,Urine Large (Negative); Nitrite,Urine Negative (Negative); Protein,Urine 2+ (Negative); RBC,Urine >182 /hpf (0-5); Specific Gravity,Urine 1.014 (1.001-1.035); Squamous Epithelial Cell,Urine 2 /hpf (0-4); Urobilinogen,Urine <2.0 mg/dL (<2.0); WBC,Urine 29 /hpf (0-5)
--- NOTE | 2018-04-18 18:37 | ED ---
Abdominal Pain HPI - General Chief Complaint: Abdominal Pain Stated Complaint: blood in urine Time Seen by Provider: 04/18/18 17:19 Source: patient, RN notes reviewed, old records reviewed Mode of arrival: ambulatory Limitations: no limitations - History of Present Illness Initial Comments: 57-year-old female with a history of pyelonephritis and renal stones presents emergency department today with left flank pain. Patient was discharged with approximately one week ago after ureteral stent placement on Left kidney and ureter. She passed stones and reports that she had multiple stones to still pass. Today she noted that her urine was bloody and complains of returning pain. She has had no vomiting. She denies fevers or chills. - Related Data Home Medications Medication Instructions Recorded Confirmed metFORMIN HCL [Glucophage] 500 mg PO BID 05/04/17 04/18/18 Insulin Glargine,Hum.rec.anlog 20 unit SQ HS 12/13/17 04/18/18 [Basaglar Kwikpen U-100] Omeprazole 20 mg PO DAILY 04/05/18 04/18/18 Ergocalciferol (Vitamin D2) 50,000 unit PO Q7D 04/18/18 04/18/18 [Vitamin D2] Gabapentin [Neurontin] 100 mg PO TID 04/18/18 04/18/18 Ibuprofen [Motrin] 600 mg PO TID PRN 04/18/18 04/18/18 OXcarbazepine [Trileptal] 600 mg PO BID 04/18/18 04/18/18 hydrOXYzine PAMOATE 25 mg PO DAILY 04/18/18 04/18/18 Previous Rx's Medication Instructions Recorded Magnesium Oxide [Mag-Ox] 400 mg PO DAILY #3 tablet 04/15/18 HYDROcodone/APAP 5-325MG [[place] 1 tab PO Q6HR PRN #10 tab 04/18/18 5-325] Ketorolac [Toradol] 10 mg PO TID #10 tab 04/18/18 Ondansetron Odt [Zofran Odt] 4 mg PO Q12HR PRN #14 tab 04/18/18 Allergies Allergy/AdvReac Type Severity Reaction Status Date / Time No Known Allergies Allergy Verified 04/18/18 17:41 Review of Systems ROS Statement: Those systems with pertinent positive or pertinent negative responses have been documented in the HPI. ROS Other: All systems not noted in ROS Statement are negative. Past Medical History Past Medical History: CVA/TIA, Diabetes Mellitus, GERD/Reflux, Hyperlipidemia, Renal Disease Additional Past Medical History / Comment(s): 04/05/18 - PT WANTS BOTH THE FLU AND PNE VACCINE. depression bipolar anx, ptsd, Chronic pancreatitis, HEART MURMUR AND ENLARGED AORTA, tia's, colon polyps-benign. History of Any Multi-Drug Resistant Organisms: None Reported Past Surgical History: Appendectomy Additional Past Surgical History / Comment(s): CYST REMOVED FROM NECK. RT 3RD/ 4TH FINGER PARTIAL AMP D/T INJURY. COLONOSCOPY/POLYPECTOMY Past Anesthesia/Blood Transfusion Reactions: No Reported Reaction Past Psychological History: Anxiety, Bipolar, Depression, PTSD Smoking Status: Current every day smoker Past Alcohol Use History: None Reported Past Drug Use History: Marijuana - Past Family History Father Family Medical History: Liver Disease Additional Family Medical History / Comment(s): Father at age 78 from cirrhosis of the liver. Mother Additional Family Medical History / Comment(s): Mother is alive in her 80s Sister(s) Family Medical History: Coronary Artery Disease (CAD) Additional Family Medical History / Comment(s): Patient has 2 sisters and one has from an overdose. She has 1 brother with no major medical problems. 4cm anyrusm General Exam - General Exam Comments Initial Comments: This is an ill appearing 57 year old female, moderate discomfort. Limitations: no limitations General appearance: alert, in no apparent distress Head exam: Present: atraumatic, normocephalic, normal inspection Eye exam: Present: normal appearance, PERRL, EOMI. Absent: scleral icterus, conjunctival injection, periorbital swelling ENT exam: Present: normal exam, mucous membranes moist Neck exam: Present: normal inspection. Absent: tenderness, meningismus, lymphadenopathy Respiratory exam: Present: normal lung sounds bilaterally. Absent: respiratory distress, wheezes, rales, rhonchi, stridor Cardiovascular Exam: Present: regular rate, normal rhythm, normal heart sounds. Absent: systolic murmur, diastolic murmur, rubs, gallop, clicks GI/Abdominal exam: Present: soft, tenderness (Left flank, CVA tenderness. Left upper quadrant pain to palpation. ), normal bowel sounds. Absent: distended, guarding, rebound, rigid External exam: Present: normal external exam. Absent: erythema Extremities exam: Present: normal inspection, full ROM, normal capillary refill. Absent: tenderness, pedal edema, joint swelling, calf tenderness Back exam: Present: normal inspection Course Vital Signs 04/18/18 04/18/18 16:58 19:17 Temperature 98.0 F 98.8 F Pulse Rate 92 98 Respiratory 20 18 Rate Blood Pressure 108/74 147/89 O2 Sat by Pulse 98 100 Oximetry Medical Decision Making - Medical Decision Making 57 year old female with ureteral stent placement one week ago, on antibiotics at this time, presented with worsening hematuria and further left CVA pain. Patient is likely passing another stone throught ureteral stent. Patient is currently on antibiotics from recent DC from hospital. She is concerned with change in position of the ureteral stent and reports that pain control at home, gabapentin is not enough. Patient lab work was unremarkable, nad patient has normal kidney function. Patient UA shows hematuria, and some WBC. Urine culture obtained. Patient at this time has follow up with Dr. comer this upcoming week. Discussed that ureteral stent is functioning and appears in place,and that a short course of pain medication can be given as she is likly passing another stone at this time. Discussed return parameters. Patient agrees to treatment plana nd will comply. - Lab Data Result diagrams: 04/18/18 17:35 04/18/18 17:35 Lab Results 04/18/18 04/18/18 04/18/18 Range/Units 17:35 17:35 17:35 WBC 8.8 (3.8-10.6) k/uL RBC 3.55 L (3.80-5.40) m/uL Hgb 11.2 L (11.4-16.0) gm/dL Hct 33.2 L (34.0-46.0) % MCV 93.6 (80.0-100.0) fL MCH 31.5 (25.0-35.0) pg MCHC 33.7 (31.0-37.0) g/dL RDW 13.6 (11.5-15.5) % Plt Count 511 H (150-450) k/uL Neutrophils % 65 % Lymphocytes % 24 % Monocytes % 3 % Eosinophils % 3 % Basophils % 1 % Neutrophils # 5.7 (1.3-7.7) k/uL Lymphocytes # 2.1 (1.0-4.8) k/uL Monocytes # 0.3 (0-1.0) k/uL Eosinophils # 0.3 (0-0.7) k/uL Basophils # 0.1 (0-0.2) k/uL PT (9.0-12.0) sec INR (<1.2) APTT (22.0-30.0) sec Sodium 134 L (137-145) mmol/L Potassium 4.3 (3.5-5.1) mmol/L Chloride 103 (98-107) mmol/L Carbon Dioxide 23 (22-30) mmol/L Anion Gap 8 mmol/L BUN 11 (7-17) mg/dL Creatinine 0.60 (0.52-1.04) mg/dL Est GFR (CKD-EPI)AfAm >90 (>60 ml/min/1.73 sqM) Est GFR (CKD-EPI)NonAf >90 (>60 ml/min/1.73 sqM) Glucose 284 H (74-99) mg/dL Plasma Lactic Acid [place] 0.9 (0.7-2.0) mmol/L Calcium 9.3 (8.4-10.2) mg/dL Total Bilirubin 0.2 (0.2-1.3) mg/dL AST 14 (14-36) U/L ALT 21 (9-52) U/L Alkaline Phosphatase 106 (38-126) U/L Total Protein 6.3 (6.3-8.2) g/dL Albumin 3.5 (3.5-5.0) g/dL Amylase <30 L (30-110) U/L Lipase 14 L (23-300) U/L Urine Color Urine Appearance (Clear) Urine pH (5.0-8.0) Ur Specific [place] (1.001-1.035) Urine Protein (Negative) Urine Glucose (UA) (Negative) Urine Ketones (Negative) Urine Blood (Negative) Urine Nitrite (Negative) Urine Bilirubin (Negative) Urine Urobilinogen (<2.0) mg/dL Ur Leukocyte Esterase (Negative) Urine RBC (0-5) /hpf Urine WBC (0-5) /hpf Ur Squamous Epith Cells (0-4) /hpf 04/18/18 04/18/18 Range/Units 17:35 17:35 WBC (3.8-10.6) k/uL RBC (3.80-5.40) m/uL Hgb (11.4-16.0) gm/dL Hct (34.0-46.0) % MCV (80.0-100.0) fL MCH (25.0-35.0) pg MCHC (31.0-37.0) g/dL RDW (11.5-15.5) % Plt Count (150-450) k/uL Neutrophils % % Lymphocytes % % Monocytes % % Eosinophils % % Basophils % % Neutrophils # (1.3-7.7) k/uL Lymphocytes # (1.0-4.8) k/uL Monocytes # (0-1.0) k/uL Eosinophils # (0-0.7) k/uL Basophils # (0-0.2) k/uL PT 10.2 (9.0-12.0) sec INR 1.0 (<1.2) APTT 25.8 (22.0-30.0) sec Sodium (137-145) mmol/L Potassium (3.5-5.1) mmol/L Chloride (98-107) mmol/L Carbon Dioxide (22-30) mmol/L Anion Gap mmol/L BUN (7-17) mg/dL Creatinine (0.52-1.04) mg/dL Est GFR (CKD-EPI)AfAm (>60 ml/min/1.73 sqM) Est GFR (CKD-EPI)NonAf (>60 ml/min/1.73 sqM) Glucose (74-99) mg/dL Plasma Lactic Acid [place] (0.7-2.0) mmol/L Calcium (8.4-10.2) mg/dL Total Bilirubin (0.2-1.3) mg/dL AST (14-36) U/L ALT (9-52) U/L Alkaline Phosphatase (38-126) U/L Total Protein (6.3-8.2) g/dL Albumin (3.5-5.0) g/dL Amylase (30-110) U/L Lipase (23-300) U/L Urine Color Light Red Urine Appearance Cloudy H (Clear) Urine pH 6.0 (5.0-8.0) Ur Specific [place] 1.014 (1.001-1.035) Urine Protein 2+ H (Negative) Urine Glucose (UA) 3+ H (Negative) Urine Ketones Trace H (Negative) Urine Blood Large H (Negative) Urine Nitrite Negative (Negative) Urine Bilirubin Negative (Negative) Urine Urobilinogen <2.0 (<2.0) mg/dL Ur Leukocyte Esterase Large H (Negative) Urine RBC >182 H (0-5) /hpf Urine WBC 29 H (0-5) /hpf Ur Squamous Epith Cells 2 (0-4) /hpf - Radiology Data Radiology results: report reviewed KUB is normal bowel shereen pattern, left ureteral stent appears in place. Disposition Clinical Impression: Hematuria, Flank pain Disposition: HOME SELF-CARE Condition: Good Instructions: Flank Pain (ED) Additional Instructions: Patient has a close follow-up with primary care physician. Return to emergency department if any alarming signs or symptoms occur. Take the previously prescribed antibiotics. Prescriptions: HYDROcodone/APAP 5-325MG [[place] 5-325] 1 tab PO Q6HR PRN #10 tab PRN Reason: Pain Ketorolac [Toradol] 10 mg PO TID #10 tab Ondansetron Odt [Zofran Odt] 4 mg PO Q12HR PRN #14 tab PRN Reason: Nausea Is patient prescribed a controlled substance at d/c from ED?: Yes When asked, does pt state using other controlled substances?: No If prescribed controlled substance>3 days was MAPS reviewed?: Prescribed <3 Days If opioid is for acute pain is fill amount 7 days or less?: Yes If Rx opioid, was Start Talking consent form obtained?: Yes Referrals: Cecilia Cortez MD [Primary Care Provider] - 1-2 days Manjit Comer MD [STAFF PHYSICIAN] - 1-2 days Time of Disposition: 18:55
--- NOTE | 2018-04-18 18:42 | XR ---
EXAMINATION TYPE: XR KUB DATE OF EXAM: 04/18/2018 COMPARISON: NONE HISTORY: Hematuria. Abdominal pain TECHNIQUE: 2 views upright FINDINGS: There is left ureteral stent that is probably in good position. Bowel gas pattern is normal . There is no sign of intestinal obstruction or pneumoperitoneum. Fecal pattern is normal. Lung bases are clear. There are no pathologic calcifications over the kidneys. Bony structures appear intact. IMPRESSION: Nonacute abdomen.
[2018-04-18 19:18] VITALS: BP 147/89; PULSE 98; RESP 18; TEMP 98.8
--- NOTE | 2018-04-19 06:11 | CDI ---
Documentation Clarification OP Dear DANNY Crouch: Please do addendum to ED report for Physical exam and MDM. Thank you, Ny Hoang [employer]per Assembler If you have any question, Please contact distributor sales manager at [phone] [facility]
== END 2018-04-18 19:18 | disposition home or self-care (01) ==
LOC: EC 16:55
DX: R10.9 Unspecified abdominal pain (principal); R31.9 Hematuria, unspecified; E11.9 Type 2 diabetes mellitus without complications; K21.9 Gastro-esophageal reflux disease without esophagitis; F41.9 Anxiety disorder, unspecified; F17.200 Nicotine dependence, unspecified, uncomplicated; Z79.4 Long term (current) use of insulin; Z79.899 Other long term (current) drug therapy; Z86.73 Personal history of transient ischemic attack (TIA), and cerebral infarction without residual deficits
CPT/HCPCS: 36415; 80053; 82150; 83605; 83690; 85025; 85610; 85730; 81001; 87040; 74018; 99284; 96374; 96375 ×2; 96361; J2405; J1885; J1170

== ENCOUNTER 2018-04-21 10:56 | Emergency (ER) | payer OTHER ==
[2018-04-21 11:03] VITALS: BP 108/71; PULSE 82; RESP 18; TEMP 98.5
[2018-04-21] MEDS ORDERED: SODIUM CHLORIDE 0.9% 2,000 ML IV ONE (11:21)
[2018-04-21] MEDS ORDERED: ONDANSETRON 4 MG/2 ML VIAL IVP STA (11:21)
[2018-04-21] MEDS ORDERED: HYDROcodone/APAP 5-325MG 1 EACH TAB PO STA (11:21)
--- NOTE | 2018-04-21 11:27 | ED ---
Female Urogenital HPI - General Chief complaint: Vaginal Bleeding Stated complaint: Abd pain Time Seen by Provider: 04/21/18 11:10 Source: patient Mode of arrival: wheelchair Limitations: no limitations - History of Present Illness Initial comments: Patient is a 57-year-old female with a history of obstructing left-sided ureteral calculus and subsequent stent placement. Kidney stone identified on the of this month, stent placed on the . Patient returns to the emergency department after being evaluated on 03/29 for hematuria. Patient states hematuria and pain today. She is supposed follow-up with Dr. Comer tomorrow for stent removal. Patient states that she had been bleeding for the last 2 days. Pain is increased. She cannot identify any aggravating or alleviating factors. Timing is constant. She denies fever, chills though she states she is nauseated - Related Data Home Medications Medication Instructions Recorded Confirmed metFORMIN HCL [Glucophage] 500 mg PO BID 05/04/17 04/18/18 Insulin Glargine,Hum.rec.anlog 20 unit SQ HS 12/13/17 04/18/18 [Basaglar Kwikpen U-100] Omeprazole 20 mg PO DAILY 04/05/18 04/18/18 Ergocalciferol (Vitamin D2) 50,000 unit PO Q7D 04/18/18 04/18/18 [Vitamin D2] Gabapentin [Neurontin] 100 mg PO TID 04/18/18 04/18/18 Ibuprofen [Motrin] 600 mg PO TID PRN 04/18/18 04/18/18 OXcarbazepine [Trileptal] 600 mg PO BID 04/18/18 04/18/18 hydrOXYzine PAMOATE 25 mg PO DAILY 04/18/18 04/18/18 Previous Rx's Medication Instructions Recorded Magnesium Oxide [Mag-Ox] 400 mg PO DAILY #3 tablet 04/15/18 HYDROcodone/APAP 5-325MG [[place] 1 tab PO Q6HR PRN #10 tab 04/18/18 5-325] Ketorolac [Toradol] 10 mg PO TID #10 tab 04/18/18 Ondansetron Odt [Zofran Odt] 4 mg PO Q12HR PRN #14 tab 04/18/18 Phenazopyridine [Pyridium] 200 mg PO BID #6 tablet 04/21/18 Allergies Allergy/AdvReac Type Severity Reaction Status Date / Time No Known Allergies Allergy Verified 04/21/18 11:03 Review of Systems ROS Statement: Those systems with pertinent positive or pertinent negative responses have been documented in the HPI. ROS Other: All systems not noted in ROS Statement are negative. Gastrointestinal: Reports: nausea, vomiting Genitourinary: Reports: dysuria, hematuria Past Medical History Past Medical History: Cancer, CVA/TIA, Diabetes Mellitus, GERD/Reflux, Hyperlipidemia, Renal Disease Additional Past Medical History / Comment(s): 04/05/18 - PT WANTS BOTH THE FLU AND PNE VACCINE. depression bipolar anx, ptsd, Chronic pancreatitis, HEART MURMUR AND ENLARGED AORTA, tia's, colon polyps-benign., Pancreatic Cancer History of Any Multi-Drug Resistant Organisms: None Reported Past Surgical History: Appendectomy Additional Past Surgical History / Comment(s): CYST REMOVED FROM NECK. RT 3RD/ 4TH FINGER PARTIAL AMP D/T INJURY. COLONOSCOPY/POLYPECTOMY Past Anesthesia/Blood Transfusion Reactions: No Reported Reaction Past Psychological History: Anxiety, Bipolar, Depression, PTSD Smoking Status: Current every day smoker Past Alcohol Use History: None Reported Past Drug Use History: Marijuana - Past Family History Father Family Medical History: Liver Disease Additional Family Medical History / Comment(s): Father at age 78 from cirrhosis of the liver. Mother Additional Family Medical History / Comment(s): Mother is alive in her 80s Sister(s) Family Medical History: Coronary Artery Disease (CAD) Additional Family Medical History / Comment(s): Patient has 2 sisters and one has from an overdose. She has 1 brother with no major medical problems. 4cm anyrusm General Exam Limitations: no limitations General appearance: alert, in no apparent distress Head exam: Present: atraumatic, normocephalic Eye exam: Present: normal appearance ENT exam: Present: normal exam Neck exam: Present: normal inspection Respiratory exam: Present: normal lung sounds bilaterally. Absent: respiratory distress Cardiovascular Exam: Present: regular rate, normal rhythm GI/Abdominal exam: Present: soft, tenderness (Tenderness in the left lower quadrant.). Absent: distended Rectal exam: Present: deferred Back exam: Present: normal inspection, CVA tenderness (L) Neurological exam: Present: alert, oriented X3 Psychiatric exam: Present: normal affect, normal mood Skin exam: Present: warm, dry, intact Course Vital Signs 04/21/18 11:00 Temperature 98.5 F Pulse Rate 82 Respiratory 18 Rate Blood Pressure 108/71 O2 Sat by Pulse 98 Oximetry Medical Decision Making - Medical Decision Making Patient presents with chief complaint of hematuria and pelvic pain status post stent placement on 04/06/2018. Patient has been evaluated several times for hematuria and pain. Review of labs shows stable renal function and a normal white count on 04/18/2018. On initial evaluation, vitals are stable, patient is in no acute distress. Patient be evaluated with basic labs, KUB. She was given IV fluid, Zofran, [place] by mouth. 1:03 PM Lab evaluation of this patient is unremarkable. Renal function is stable. Hematuria noted with 63 wbc's. Patient already covered with antibiotics. Case discussed with Dr. Kelly who is agreeable with follow-up tomorrow. Patient was informed of the results of the care plan, she is agreeable. She will be written a prescription for Pyridium, and instructed to follow up tomorrow for stent removal. - Lab Data Result diagrams: 04/21/18 11:32 04/21/18 11:32 Lab Results 04/21/18 04/21/18 04/21/18 Range/Units 11:32 11:32 11:32 WBC 9.5 (3.8-10.6) k/uL RBC 3.60 L (3.80-5.40) m/uL Hgb 11.1 L (11.4-16.0) gm/dL Hct 34.0 (34.0-46.0) % MCV 94.5 (80.0-100.0) fL MCH 30.7 (25.0-35.0) pg MCHC 32.5 (31.0-37.0) g/dL RDW 13.6 (11.5-15.5) % Plt Count 411 (150-450) k/uL Neutrophils % 67 % Lymphocytes % 23 % Monocytes % 4 % Eosinophils % 3 % Basophils % 0 % Neutrophils # 6.4 (1.3-7.7) k/uL Lymphocytes # 2.2 (1.0-4.8) k/uL Monocytes # 0.4 (0-1.0) k/uL Eosinophils # 0.2 (0-0.7) k/uL Basophils # 0.0 (0-0.2) k/uL Sodium 134 L (137-145) mmol/L Potassium 4.5 (3.5-5.1) mmol/L Chloride 103 (98-107) mmol/L Carbon Dioxide 22 (22-30) mmol/L Anion Gap 9 mmol/L BUN 14 (7-17) mg/dL Creatinine 0.53 (0.52-1.04) mg/dL Est GFR (CKD-EPI)AfAm >90 (>60 ml/min/1.73 sqM) Est GFR (CKD-EPI)NonAf >90 (>60 ml/min/1.73 sqM) Glucose 318 H (74-99) mg/dL Calcium 9.0 (8.4-10.2) mg/dL Urine Color Light Yellow Urine Appearance Clear (Clear) Urine pH 6.0 (5.0-8.0) Ur Specific [place] 1.013 (1.001-1.035) Urine Protein 1+ H (Negative) Urine Glucose (UA) 4+ H (Negative) Urine Ketones Negative (Negative) Urine Blood Moderate H (Negative) Urine Nitrite Negative (Negative) Urine Bilirubin Negative (Negative) Urine Urobilinogen <2.0 (<2.0) mg/dL Ur Leukocyte Esterase Large H (Negative) Urine RBC >182 H (0-5) /hpf Urine WBC 63 H (0-5) /hpf Ur Squamous Epith Cells <1 (0-4) /hpf Urine Mucus Rare H (None) /hpf Disposition Clinical Impression: Hematuria Disposition: HOME SELF-CARE Condition: Good Instructions: Ureteral Stent Placement (DC) Prescriptions: Phenazopyridine [Pyridium] 200 mg PO BID #6 tablet Is patient prescribed a controlled substance at d/c from ED?: No Referrals: Cecilia Cortez MD [Primary Care Provider] - 1-2 days
--- NOTE | 2018-04-21 11:52 | XR ---
EXAMINATION TYPE: XR KUB , 2 VIEWS DATE OF EXAM ORDERED: 04/21/2018 HISTORY: Pain. COMPARISON: Previous study dated 04/18/2018. FINDINGS: There is a double-J catheter in place on the left. The lung bases are clear. Within the abdomen, there is no evidence of obstruction or free air. There are numerous air-fluid lev els. No definite calcifications are seen. IMPRESSION: 1. FINDINGS CONSISTENT WITH MILD ILEUS. 2. STATUS POST LEFT-SIDED DOUBLE-J STENT. 3. THE OVERALL APPEARANCE OF THE ABDOMEN HAS IMPROVED SLIGHTLY.
[2018-04-21 11:57] LABS: Basophils % (A) 0 %; Eosinophils # (A) 0.2 k/uL (0-0.7); Eosinophils % (A) 3 %; HGB 11.1 gm/dL (11.4-16.0); Lymphocytes # (A) 2.2 k/uL (1.0-4.8); Lymphocytes % (A) 23 %; MCH 30.7 pg (25.0-35.0); MCHC 32.5 g/dL (31.0-37.0); MCV 94.5 fL (80.0-100.0); Mean Platelet Volume 7.6; Monocytes # (A) 0.4 k/uL (0-1.0); Monocytes % (A) 4 %; Neutrophils # (A) 6.4 k/uL (1.3-7.7); Neutrophils % (A) 67 %; Platelet Count 411 k/uL (150-450); RDW 13.6 % (11.5-15.5); WBC 9.5 k/uL (3.8-10.6)
[2018-04-21 12:04] LABS: Appearance,Urine Clear (Clear); Bilirubin,Urine Negative (Negative); Blood,Urine Moderate (Negative); Color,Urine Light Yellow; Glucose,Urine (UA) 4+ (Negative); Ketones,Urine Negative (Negative); Leukocyte Esterase,Urine Large (Negative); Mucus,Urine Rare /hpf; Nitrite,Urine Negative (Negative); Protein,Urine 1+ (Negative); RBC,Urine >182 /hpf (0-5); Specific Gravity,Urine 1.013 (1.001-1.035); Squamous Epithelial Cell,Urine <1 /hpf (0-4); Urobilinogen,Urine <2.0 mg/dL (<2.0)
[2018-04-21 12:14] LABS: Anion Gap 9 mmol/L; Blood Urea Nitrogen 14 mg/dL (7-17); Carbon Dioxide 22 mmol/L (22-30); Chloride 103 mmol/L (98-107); Glucose 318 mg/dL (74-99); Potassium 4.5 mmol/L (3.5-5.1); Sodium 134 mmol/L (137-145)
== END 2018-04-21 13:18 | disposition home or self-care (01) ==
LOC: EC 10:56
DX: R31.9 Hematuria, unspecified (principal); R10.2 Pelvic and perineal pain; R11.0 Nausea; K21.9 Gastro-esophageal reflux disease without esophagitis; E11.9 Type 2 diabetes mellitus without complications; F41.9 Anxiety disorder, unspecified; F17.200 Nicotine dependence, unspecified, uncomplicated; Z79.4 Long term (current) use of insulin; Z79.899 Other long term (current) drug therapy; Z90.49 Acquired absence of other specified parts of digestive tract; Z87.442 Personal history of urinary calculi; Z96.0 Presence of urogenital implants
CPT/HCPCS: 36415; 80048; 85025; 81001; 87086; 74018; 99284; 96374; 96361; J2405

== ENCOUNTER 2018-05-09 09:08 | Day surgery (SDC) | payer OTHER ==
--- NOTE | 2018-04-23 06:23 | P.GSHP ---
History of Present Illness H&P Date: 04/23/18 Chief Complaint: Left ureteral calculus The patient is a 57-year-old white female with a history of chronic pancreatitis due to alcohol abuse. She denies any prior history of urolithiasis. She was admitted in March 2018 with a several-day history of low back pain, predominantly left-sided, radiating into her legs. She reported associated chills, nausea, and vomiting. A CT scan revealed evidence of left hydronephrosis due to a 3 mm left distal ureteral calculus. Her condition worsened, requiring transfer to the ICU. She wasn managed with fluid resuscitation and parenteral antibiotics. A urine culture showed an E. coli UTI , and the CT scan showed bilateral wedge shaped areas of diminished enhancement consistent with acute pyelonephritis. The CT scan did not show any additional calculi. She underwent placement of a left ureteral stent, and was treated with antibiotics upon discharge. She has experienced significant stent pain, but a urine culture obtained on 04/21/2018 was negative. She now comes for left ureteral stent removal, along with left ureteroscopy with Holmium laser lithotripsy. - Constitutional Constitutional: Denies chills, Denies fever - Gastrointestinal Gastrointestinal: Reports abdominal pain - Genitourinary (Female) Genitourinary: Reports hematuria Past Medical History Past Medical History: Cancer, CVA/TIA, Diabetes Mellitus, GERD/Reflux, Hyperlipidemia, Renal Disease Additional Past Medical History / Comment(s): 04/05/18 - PT WANTS BOTH THE FLU AND PNE VACCINE. depression bipolar anx, ptsd, Chronic pancreatitis, HEART MURMUR AND ENLARGED AORTA, tia's, colon polyps-benign., Pancreatic Cancer History of Any Multi-Drug Resistant Organisms: None Reported Past Surgical History: Appendectomy Additional Past Surgical History / Comment(s): CYST REMOVED FROM NECK. RT 3RD/ 4TH FINGER PARTIAL AMP D/T INJURY. COLONOSCOPY/POLYPECTOMY Past Anesthesia/Blood Transfusion Reactions: No Reported Reaction Past Psychological History: Anxiety, Bipolar, Depression, PTSD Smoking Status: Current every day smoker Past Alcohol Use History: None Reported Past Drug Use History: Marijuana - Past Family History Father Family Medical History: Liver Disease Additional Family Medical History / Comment(s): Father at age 78 from cirrhosis of the liver. Mother Additional Family Medical History / Comment(s): Mother is alive in her 80s Sister(s) Family Medical History: Coronary Artery Disease (CAD) Additional Family Medical History / Comment(s): Patient has 2 sisters and one has from an overdose. She has 1 brother with no major medical problems. 4cm anyrusm Medications and Allergies Home Medications Medication Instructions Recorded Confirmed Type metFORMIN HCL [Glucophage] 500 mg PO BID 05/04/17 04/18/18 History Insulin Glargine,Hum.rec.anlog 20 unit SQ HS 12/13/17 04/18/18 History [Basaglar Kwikpen U-100] Omeprazole 20 mg PO DAILY 04/05/18 04/18/18 History Magnesium Oxide [Mag-Ox] 400 mg PO DAILY #3 tablet 04/15/18 04/18/18 Rx Ergocalciferol (Vitamin D2) 50,000 unit PO Q7D 04/18/18 04/18/18 History [Vitamin D2] Gabapentin [Neurontin] 100 mg PO TID 04/18/18 04/18/18 History HYDROcodone/APAP 5-325MG [[place] 1 tab PO Q6HR PRN #10 tab 04/18/18 Rx 5-325] Ibuprofen [Motrin] 600 mg PO TID PRN 04/18/18 04/18/18 History Ketorolac [Toradol] 10 mg PO TID #10 tab 04/18/18 Rx OXcarbazepine [Trileptal] 600 mg PO BID 04/18/18 04/18/18 History Ondansetron Odt [Zofran Odt] 4 mg PO Q12HR PRN #14 tab 04/18/18 Rx hydrOXYzine PAMOATE 25 mg PO DAILY 04/18/18 04/18/18 History Phenazopyridine [Pyridium] 200 mg PO BID #6 tablet 04/21/18 Rx Allergies Allergy/AdvReac Type Severity Reaction Status Date / Time No Known Allergies Allergy Verified 04/21/18 11:03 Surgical - Exam - General well developed, well nourished, no distress - Respiratory normal respiratory effort - Abdomen Abdomen: soft, non tender, no guarding, no rigid, no rebound - Psychiatric oriented to time, oriented to person, oriented to place, speech is normal, memory intact Results - Imaging CT scan - abdomen: report reviewed, image reviewed Assessment and Plan (1) Calculus of ureter Status: Acute Code(s): N20.1 - CALCULUS OF URETER SNOMED Code(s): 48637851 Plan: Cystoscopy, left ureteral stent removal, left ureteroscopy with Holmium laser lithotripsy and possible stone basketing. The procedure has been reviewed in detail with the patient. Potential risks were also discussed. These include anesthesia, bleeding, infection, ureteral injury, and inability to successfully remove the calculus.
[2018-05-06 10:10] VITALS: BMI 22.3
[~2018-05-09 09:08] MED LIST: DEXAMETHASONE SOD PHOSPHATE 10 MG/ML 1 ML VIAL IV ONE; HYDROmorphone 0.5 MG/0.5 ML SYRINGE IVP PRN; LACTATED RINGERS 1,000 ML IV SCH; LIDOCAINE 1% 20 ML VIAL (10MG/ML) FOR IV START INTRADERMA PRN; MIDAZOLAM 2 MG/2 ML VIAL IV PRN; ONDANSETRON 4 MG/2 ML VIAL IVP ONE; ceFAZolin IN SWFI 2 GM/20 ML SYRINGE IVP ONE; fentaNYL (PF) 50 MCG/ML 2 ML AMP IV PRN
[2018-05-09 11:31] LABS: Glucose,Whole Blood 212 mg/dL (75-99)
[2018-05-09] MEDS ORDERED: fentaNYL (PF) 50 MCG/ML 2 ML AMP ONE (12:43)
[2018-05-09] MEDS ORDERED: MIDAZOLAM 2 MG/2 ML VIAL ONE (12:43)
[2018-05-09] MEDS ORDERED: NEOSTIGMINE 1 MG/ML 10 ML VIAL ONE (12:43)
[2018-05-09] MEDS ORDERED: SUCCINYLCHOLINE CHLORIDE 100 MG/5 ML SYR IV ONE (12:43)
[2018-05-09] MEDS ORDERED: GLYCOPYRROLATE 0.2 MG/ML 2 ML VIAL ONE (12:43)
[2018-05-09] MEDS ORDERED: ROCURONIUM BROMIDE 10 MG/ML 10 ML VIAL IV ONE (12:43)
[2018-05-09] MEDS ORDERED: LIDOCAINE 1% INJ 10MG/ML (20 ML MDV) ONE (12:43)
[2018-05-09] MEDS ORDERED: ePHEDrine SULFATE/0.9% NACL/PF 50 MG/5 ML SYRINGE IV ONE (12:43)
[2018-05-09] MEDS ORDERED: PROPOFOL 10 MG/ML 20 ML VIAL IV ONE (12:43)
[2018-05-09] MEDS ORDERED: LACTATED RINGERS 1,000 ML IV ONE (14:04)
--- NOTE | 2018-05-09 14:08 | P.OP ---
Date of Procedure: 05/09/18 Preoperative Diagnosis: Left ureteral calculus Postoperative Diagnosis: Same Procedure(s) Performed: Cystoscopy, left ureteral stent removal, left ureteroscopy with Holmium laser lithotripsy Anesthesia: SERGEY Surgeon: Manjit Comer Estimated Blood Loss (ml): 5 IV fluids (ml): 700 Pathology: none sent Condition: stable Disposition: PACU Indications for Procedure: The patient is a 57-year-old white female with a history of chronic pancreatitis due to alcohol abuse. She denies any prior history of urolithiasis. She was admitted in March 2018 with a several-day history of low back pain, predominantly left-sided, radiating into her legs. She reported associated chills, nausea, and vomiting. A CT scan revealed evidence of left hydronephrosis due to a 3 mm left distal ureteral calculus. Her condition worsened, requiring transfer to the ICU. She wasn managed with fluid resuscitation and parenteral antibiotics. A urine culture showed an E. coli UTI , and the CT scan showed bilateral wedge shaped areas of diminished enhancement consistent with acute pyelonephritis. The CT scan did not show any additional calculi. She underwent placement of a left ureteral stent, and was treated with antibiotics upon discharge. She has experienced significant stent pain, but a urine culture obtained on 04/21/2018 was negative. She now comes for left ureteral stent removal, along with left ureteroscopy with Holmium laser lithotripsy. Operative Findings: Left proximal ureteral calculus, fragmented. Description of Procedure: The patient was taken to the operating room and placed in the dorsolithotomy position, with legs supported in Sudeep stirrups. The external genitalia was prepped and draped sterilely. The 30 lens was used to introduce the 22-Kinyarwanda Stortz cystoscopic sheath through the urethra and into the bladder under direct vision. The bladder was examined in its entirety. Both ureteral orifices were normal anatomic location and configuration. No tumors or foreign bodies were seen. Grasping forceps were used to grasp the distal end of the left ureteral stent, which was removed along with the cystoscope. The [employer] semirigid ureteroscope was advanced into the bladder, and the left ureteral orifice was cannulated. The ureteroscope was slowly advanced under direct vision, until the calculus was seen within the proximal ureter. The 365 micron Holmium laser probe was passed through the ureteroscope, and lithotripsy was performed. The calculus refluxed into the kidney. A 0.038 inch Glidewire was passed through the ureteroscope and up to the left renal pelvis. The semirigid ureteroscope was removed, and the Olympus flexible ureteroscope was passed over the wire, up to the left renal pelvis. Each calyx was examined. Calculus was seen within a midpole calyx. The 200 holmium laser probe was passed through the ureteroscope, and the calculus was fragmented. This was continued until there were no residual calculus fragments exceeding 1 mm in size. A clot was also seen and fragmented. The ureteroscope was slowly withdrawn under direct vision. There was no evidence of ureteral trauma. The patient tolerated the procedure well and was taken to the recovery room in stable condition.
[2018-05-09] MEDS: fentaNYL (PF) 50 MCG/ML 2 ML AMP IV PRN ×2 (14:16→14:20)
[2018-05-09 14:20] VITALS: TEMP 98
[2018-05-09] MEDS ORDERED: ONDANSETRON 4 MG/2 ML VIAL IVP ONE ×2 (14:24→14:37)
[2018-05-09] MEDS: HYDROmorphone 1 MG/ML 1 ML SYRINGE IVP PRN ×2 (14:28→14:33)
[2018-05-09 14:40] VITALS: RESP 16
[2018-05-09 14:50] LABS: Glucose,Whole Blood 224 mg/dL (75-99)
[2018-05-09] MEDS ORDERED: INSULIN ASPART 100 UNIT/ML 1 ML 10 ML VIAL SQ ONE (14:52)
[2018-05-09 15:01] VITALS: BP 117/67
[2018-05-09 15:30] VITALS: PULSE 73
--- NOTE | 2018-05-12 17:06 | FL ---
Fluoroscopy INDICATION: Pain FINDINGS: Fluoroscopy time: 29 seconds. Images obtained: 1. IMPRESSIONS: 1. Documentation of fluoroscopy.
== END 2018-05-09 15:57 | disposition home or self-care (01) ==
LOC: OR 09:08
PROVIDERS: ATTEND Urology
DX: N20.1 Calculus of ureter (principal); T83.84XA Pain due to genitourinary prosthetic devices, implants and grafts, initial encounter; K86.0 Alcohol-induced chronic pancreatitis; Z86.73 Personal history of transient ischemic attack (TIA), and cerebral infarction without residual deficits; E11.9 Type 2 diabetes mellitus without complications; K21.9 Gastro-esophageal reflux disease without esophagitis; E78.5 Hyperlipidemia, unspecified; Z85.07 Personal history of malignant neoplasm of pancreas; R01.1 Cardiac murmur, unspecified; F41.9 Anxiety disorder, unspecified; F31.9 Bipolar disorder, unspecified; F43.10 Post-traumatic stress disorder, unspecified; F17.210 Nicotine dependence, cigarettes, uncomplicated; Z79.4 Long term (current) use of insulin; Z79.891 Long term (current) use of opiate analgesic; Z79.899 Other long term (current) drug therapy; I77.89 Other specified disorders of arteries and arterioles; J44.9 Chronic obstructive pulmonary disease, unspecified
CPT/HCPCS: 74430; 52353; C1769; J2250; J1100; J2710; J2405; J2001; J3010; J1170; J0330; J2704

== ENCOUNTER 2018-07-11 15:56 | Emergency (ER) | payer OTHER ==
[2018-07-11 16:08] VITALS: TEMP 97.8
[2018-07-11] MEDS ORDERED: MORPHINE SULFATE 4 MG/ML SYRINGE IV STA (16:32)
[2018-07-11] MEDS ORDERED: SODIUM CHLORIDE 0.9% 1,000 ML IV STA (16:32)
[2018-07-11] MEDS ORDERED: ONDANSETRON 4 MG/2 ML VIAL IVP STA (16:32)
--- NOTE | 2018-07-11 16:38 | ED ---
General Adult HPI - General Chief complaint: Abdominal Pain Stated complaint: Nausea, vomiting; abdominal pain Time Seen by Provider: 07/11/18 16:06 Source: patient, EMS, RN notes reviewed Mode of arrival: EMS Limitations: no limitations - History of Present Illness Initial comments: 58-year-old female with a past medical history of chronic pancreatitis, pancreatic cancer , diabetes, hyperlipidemia presents for a chief complaint of upper abdominal pain 2 years. Patient states this has been ongoing for quite some time and is worsened normal today. Patient states this is from pancreatic cancer. She states she was supposed to see an oncologist last week but could not make the appointment due to personal problems such as having her grandson taken away. She states she is not in any pain medications at home and is supposed to have liquid morphine prescribed by laterally but has not had a chance to follow-up. Patient has no other complaints at this time including shortness of breath, chest pain, nausea or vomiting, headache, or visual changes. - Related Data Home Medications Medication Instructions Recorded Confirmed metFORMIN HCL [Glucophage] 500 mg PO BID 05/04/17 07/11/18 Insulin Glargine,Hum.rec.anlog 20 unit SQ HS 12/13/17 07/11/18 [Basaglar Kwikpen U-100] Omeprazole 20 mg PO DAILY 04/05/18 07/11/18 Ergocalciferol (Vitamin D2) 50,000 unit PO Q7D 04/18/18 07/11/18 [Vitamin D2] Gabapentin [Neurontin] 100 mg PO TID 04/18/18 07/11/18 OXcarbazepine [Trileptal] 600 mg PO BID 04/18/18 07/11/18 hydrOXYzine PAMOATE 25 mg PO HS 04/18/18 07/11/18 Ondansetron Odt [Zofran Odt] 4 mg PO Q12H PRN 07/11/18 07/11/18 QUEtiapine FUMARATE [SEROquel] 300 mg PO HS 07/11/18 07/11/18 Allergies Allergy/AdvReac Type Severity Reaction Status Date / Time No Known Allergies Allergy Verified 07/11/18 17:01 Review of Systems ROS Statement: Those systems with pertinent positive or pertinent negative responses have been documented in the HPI. ROS Other: All systems not noted in ROS Statement are negative. Past Medical History Past Medical History: Cancer, CVA/TIA, Diabetes Mellitus, GERD/Reflux, Hyperlipidemia, Renal Disease Additional Past Medical History / Comment(s): Chronic pancreatitis, HEART MURMUR AND ENLARGED AORTA, tia's, colon polyps-benign., Pancreatic Cancer, "blood pressure tends to run low ended up in ICU" pt states recent UTI treated with antibiotics states has had continuing symptoms pt has called dr cardenas awaiting call back History of Any Multi-Drug Resistant Organisms: MRSA Date of last positivie culture/infection: 2015 MDRO Source:: face Past Surgical History: Appendectomy Additional Past Surgical History / Comment(s): CYST REMOVED FROM NECK. RT 3RD/ 4TH FINGER PARTIAL AMP D/T INJURY, lt ureter stent. COLONOSCOPY/POLYPECTOMY Past Anesthesia/Blood Transfusion Reactions: No Reported Reaction Past Psychological History: Anxiety, Depression, PTSD Smoking Status: Current every day smoker Past Alcohol Use History: None Reported Past Drug Use History: None Reported - Past Family History Father Family Medical History: Liver Disease Additional Family Medical History / Comment(s): Father at age 78 from cirrhosis of the liver. Mother Additional Family Medical History / Comment(s): Mother is alive in her 80s Sister(s) Family Medical History: Coronary Artery Disease (CAD) Additional Family Medical History / Comment(s): Patient has 2 sisters and one has from an overdose. She has 1 brother with no major medical problems. 4cm aneurysm General Exam Limitations: no limitations General appearance: alert, in no apparent distress Head exam: Present: atraumatic, normocephalic, normal inspection Eye exam: Present: normal appearance, PERRL, EOMI. Absent: scleral icterus, conjunctival injection, periorbital swelling ENT exam: Present: normal exam, mucous membranes moist Neck exam: Present: normal inspection, full ROM. Absent: tenderness, meningismus, lymphadenopathy Respiratory exam: Present: normal lung sounds bilaterally. Absent: respiratory distress, wheezes, rales, rhonchi, stridor Cardiovascular Exam: Present: regular rate, normal rhythm, normal heart sounds. Absent: systolic murmur, diastolic murmur, rubs, gallop, clicks GI/Abdominal exam: Present: soft, tenderness (tenderness to epigastric area, no RUQ tenderness, negative yi sign), normal bowel sounds. Absent: distended, guarding, rebound, rigid Neurological exam: Present: alert, oriented X3, CN II-XII intact Psychiatric exam: Present: normal affect, normal mood Course Vital Signs 07/11/18 07/11/18 16:04 18:08 Temperature 97.8 F Pulse Rate 88 87 Respiratory 16 18 Rate Blood Pressure 115/83 113/74 O2 Sat by Pulse 98 98 Oximetry EKG Findings - EKG Comments: EKG Findings:: EKG shows a normal sinus rhythm, ventricular rate 84, W[place] interval 182, QTc 458, no evidence of ST elevation or depression Medical Decision Making - Medical Decision Making 58-year-old female presents to the emergency department for a chief complaint of epigastric pain 2 years. Patient states his pain worsened today. Patient has a history of pancreatic cancer but has not yet followed up with the oncologist. She missed her appointment last week. Patient states she has no pain medications at home at this time. On exam patient has minimal epigastric tenderness without guarding or rigidity. CBC and CMP are unremarkable. Glucose is 285 patient does have a history of diabetes. Anion gap 6, no ketones in the urine. Urine negative for infection. No concern for free air in the abdomen at this time. No significant right upper quadrant tenderness, negative Yi sign. No imaging done at this time as pain is likely related to pancreatic cancer, patient agrees with this. Patient was given morphine here and is feeling much better, ready to go home. She does however agree to come back if she has worsening symptoms. Patient states she will follow up with both Shoshana and her oncologist. - Lab Data Result diagrams: 07/11/18 16:36 07/11/18 16:36 Lab Results 07/11/18 07/11/18 07/11/18 Range/Units 16:36 16:36 17:03 WBC 10.4 (3.8-10.6) k/uL RBC 4.28 (3.80-5.40) m/uL Hgb 13.1 (11.4-16.0) gm/dL Hct 39.9 (34.0-46.0) % MCV 93.3 (80.0-100.0) fL MCH 30.5 (25.0-35.0) pg MCHC 32.7 (31.0-37.0) g/dL RDW 13.8 (11.5-15.5) % Plt Count 308 (150-450) k/uL Neutrophils % 57 % Lymphocytes % 34 % Monocytes % 4 % Eosinophils % 2 % Basophils % 1 % Neutrophils # 5.9 (1.3-7.7) k/uL Lymphocytes # 3.5 (1.0-4.8) k/uL Monocytes # 0.4 (0-1.0) k/uL Eosinophils # 0.2 (0-0.7) k/uL Basophils # 0.1 (0-0.2) k/uL Sodium 138 (137-145) mmol/L Potassium 4.7 (3.5-5.1) mmol/L Chloride 104 (98-107) mmol/L Carbon Dioxide 28 (22-30) mmol/L Anion Gap 6 mmol/L BUN 16 (7-17) mg/dL Creatinine 0.53 (0.52-1.04) mg/dL Est GFR (CKD-EPI)AfAm >90 (>60 ml/min/1.73 sqM) Est GFR (CKD-EPI)NonAf >90 (>60 ml/min/1.73 sqM) Glucose 285 H (74-99) mg/dL Calcium 9.3 (8.4-10.2) mg/dL Total Bilirubin 0.4 (0.2-1.3) mg/dL AST 19 (14-36) U/L ALT 31 (9-52) U/L Alkaline Phosphatase 78 (38-126) U/L Total Protein 6.7 (6.3-8.2) g/dL Albumin 3.9 (3.5-5.0) g/dL Amylase 46 (30-110) U/L Lipase 27 (23-300) U/L Urine Color Yellow Urine Appearance Clear (Clear) Urine pH 7.0 (5.0-8.0) Ur Specific [place] 1.023 (1.001-1.035) Urine Protein Negative (Negative) Urine Glucose (UA) 4+ H (Negative) Urine Ketones Negative (Negative) Urine Blood Negative (Negative) Urine Nitrite Negative (Negative) Urine Bilirubin Negative (Negative) Urine Urobilinogen <2.0 (<2.0) mg/dL Ur Leukocyte Esterase Negative (Negative) Disposition Clinical Impression: Abdominal pain Disposition: HOME SELF-CARE Condition: Good Instructions: Abdominal Pain (ED) Additional Instructions: Please follow up with primary care in 1-2 days. Follow-up with oncology as well. Return here to the emergency department if you have worsening symptoms. Is patient prescribed a controlled substance at d/c from ED?: No Referrals: Cecilia Cortez MD [Primary Care Provider] - 1-2 days Time of Disposition: 18:39
[2018-07-11 16:51] LABS: Basophils # (A) 0.1 k/uL (0-0.2); Basophils % (A) 1 %; Eosinophils # (A) 0.2 k/uL (0-0.7); Eosinophils % (A) 2 %; HCT 39.9 % (34.0-46.0); HGB 13.1 gm/dL (11.4-16.0); Lymphocytes # (A) 3.5 k/uL (1.0-4.8); Lymphocytes % (A) 34 %; MCH 30.5 pg (25.0-35.0); MCHC 32.7 g/dL (31.0-37.0); MCV 93.3 fL (80.0-100.0); Mean Platelet Volume 7.9; Monocytes # (A) 0.4 k/uL (0-1.0); Monocytes % (A) 4 %; Neutrophils # (A) 5.9 k/uL (1.3-7.7); Neutrophils % (A) 57 %; Platelet Count 308 k/uL (150-450); RBC 4.28 m/uL (3.80-5.40); RDW 13.8 % (11.5-15.5); WBC 10.4 k/uL (3.8-10.6)
[2018-07-11 17:00] LABS: ALT 31 U/L (9-52); AST 19 U/L (14-36); Albumin 3.9 g/dL (3.5-5.0); Alkaline Phosphatase 78 U/L (38-126); Amylase 46 U/L (30-110); Anion Gap 6 mmol/L; Blood Urea Nitrogen 16 mg/dL (7-17); Calcium 9.3 mg/dL (8.4-10.2); Carbon Dioxide 28 mmol/L (22-30); Chloride 104 mmol/L (98-107); Glucose 285 mg/dL (74-99); Lipase 27 U/L (23-300); Potassium 4.7 mmol/L (3.5-5.1); Sodium 138 mmol/L (137-145); Total Bilirubin 0.4 mg/dL (0.2-1.3); Total Protein 6.7 g/dL (6.3-8.2)
[2018-07-11 17:20] LABS: Appearance,Urine Clear (Clear); Bilirubin,Urine Negative (Negative); Blood,Urine Negative (Negative); Color,Urine Yellow; Glucose,Urine (UA) 4+ (Negative); Ketones,Urine Negative (Negative); Leukocyte Esterase,Urine Negative (Negative); Nitrite,Urine Negative (Negative); Protein,Urine Negative (Negative); Specific Gravity,Urine 1.023 (1.001-1.035); Urobilinogen,Urine <2.0 mg/dL (<2.0)
[2018-07-11 18:09] VITALS: BP 113/74; PULSE 87; RESP 18
[2018-07-11] MEDS ORDERED: LORazepam 1 MG TAB PO STA (18:39)
[2018-07-11] MEDS ORDERED: ACET/COD 300 MG/30 MG STARTER PACK 6 TAB BTL PO STA (18:39)
== END 2018-07-11 19:02 | disposition home or self-care (01) ==
LOC: EC 15:56
DX: R10.13 Epigastric pain (principal); E11.9 Type 2 diabetes mellitus without complications; K21.9 Gastro-esophageal reflux disease without esophagitis; F41.9 Anxiety disorder, unspecified; F32.9 Major depressive disorder, single episode, unspecified; F43.10 Post-traumatic stress disorder, unspecified; F17.200 Nicotine dependence, unspecified, uncomplicated; Z86.73 Personal history of transient ischemic attack (TIA), and cerebral infarction without residual deficits; Z85.07 Personal history of malignant neoplasm of pancreas; Z87.19 Personal history of other diseases of the digestive system; Z86.010 Personal history of colon polyps; Z86.14 Personal history of Methicillin resistant Staphylococcus aureus infection; Z90.49 Acquired absence of other specified parts of digestive tract; Z96.0 Presence of urogenital implants; Z98.890 Other specified postprocedural states; Z79.4 Long term (current) use of insulin; Z79.899 Other long term (current) drug therapy
CPT/HCPCS: 36415; 93005; 80053; 82150; 83690; 85025; 81003; 99285; 96374; 96375; 96361; J2270; J2405

== ENCOUNTER 2018-11-25 13:58 | Emergency (ER) | payer OTHER ==
[2018-11-25 14:10] VITALS: RESP 18; TEMP 97.6
[2018-11-25] MEDS ORDERED: PANTOPRAZOLE 40 MG/10 ML VIAL IVP STA (14:59)
[2018-11-25] MEDS ORDERED: ONDANSETRON 4 MG/2 ML VIAL IVP STA (14:59)
[2018-11-25] MEDS ORDERED: HYDROmorphone 1 MG/ML 1 ML SYRINGE IVP STA (14:59)
[2018-11-25] MEDS ORDERED: SODIUM CHLORIDE 0.9% 1,000 ML IV STA (14:59)
[2018-11-25 15:11] LABS: Basophils # (A) 0.1 k/uL (0-0.2); Basophils % (A) 1 %; Eosinophils # (A) 0.2 k/uL (0-0.7); Eosinophils % (A) 2 %; HCT 38.2 % (34.0-46.0); HGB 12.4 gm/dL (11.4-16.0); Lymphocytes # (A) 3.3 k/uL (1.0-4.8); Lymphocytes % (A) 44 %; MCHC 32.6 g/dL (31.0-37.0); MCV 92.1 fL (80.0-100.0); Mean Platelet Volume 7.5; Monocytes # (A) 0.2 k/uL (0-1.0); Monocytes % (A) 3 %; Neutrophils # (A) 3.5 k/uL (1.3-7.7); Neutrophils % (A) 47 %; Platelet Count 262 k/uL (150-450); RBC 4.15 m/uL (3.80-5.40); RDW 12.9 % (11.5-15.5); WBC 7.5 k/uL (3.8-10.6)
[2018-11-25 15:23] LABS: ALT 21 U/L (9-52); AST 26 U/L (14-36); Albumin 3.8 g/dL (3.5-5.0); Alkaline Phosphatase 74 U/L (38-126); Amylase 52 U/L (30-110); Anion Gap 7 mmol/L; Blood Urea Nitrogen 18 mg/dL (7-17); Calcium 9.2 mg/dL (8.4-10.2); Carbon Dioxide 23 mmol/L (22-30); Chloride 106 mmol/L (98-107); Glucose 320 mg/dL (74-99); Lipase 14 U/L (23-300); Potassium 4.9 mmol/L (3.5-5.1); Sodium 136 mmol/L (137-145); Total Bilirubin 0.3 mg/dL (0.2-1.3); Total Protein 6.4 g/dL (6.3-8.2)
[2018-11-25 15:26] LABS: Appearance,Urine Clear (Clear); Bilirubin,Urine Negative (Negative); Blood,Urine Negative (Negative); Color,Urine Yellow; Glucose,Urine (UA) 4+ (Negative); Ketones,Urine Negative (Negative); Leukocyte Esterase,Urine Negative (Negative); Nitrite,Urine Negative (Negative); PH, Urine 5.5 (5.0-8.0); Protein,Urine Negative (Negative); Specific Gravity,Urine 1.038 (1.001-1.035); Urobilinogen,Urine <2.0 mg/dL (<2.0)
--- NOTE | 2018-11-25 15:50 | XR ---
KUB HISTORY: Abdominal pain, nausea Frontal KUB on 2 images Correlated to prior exam 04/21/2018 Double-J stent has been removed. Lung bases are clear. Multiple calcifications are present in the lef t upper quadrant and over the midline may be pancreatic. There are air-fluid levels without bowel dis tention. Retained fecal debris is noted, correlate to exclude constipation. IMPRESSION: There may be an underlying ileus or enteritis. Follow-up as indicated. Correlate for panc reatitis.
--- NOTE | 2018-11-25 15:51 | XR ---
EXAMINATION TYPE: XR chest 2V DATE OF EXAM: 11/25/2018 COMPARISON: Prior chest x-ray 04/06/2018 HISTORY: Abdominal pain TECHNIQUE: Frontal and lateral views of the chest are obtained. FINDINGS: There is no focal air space opacity, pleural effusion, or pneumothorax seen. The cardiac silhouette size is within normal limits. The osseous structures are intact. Prominent lung lines ma y be indicative of underlying COPD. IMPRESSION: No acute cardiopulmonary process.
--- NOTE | 2018-11-25 16:50 | ED ---
General Adult HPI - General Chief complaint: Abdominal Pain Stated complaint: Abd.pain Time Seen by Provider: 11/25/18 14:25 Source: patient, RN notes reviewed, old records reviewed Mode of arrival: EMS Limitations: no limitations - History of Present Illness Initial comments: Reveals a 58-year-old female presents emergency department today for evaluation for complaints of left-sided abdominal pain. She reports her pain is related to chronic pancreatitis. - Related Data Home Medications Medication Instructions Recorded Confirmed metFORMIN HCL [Glucophage] 500 mg PO BID 05/04/17 11/25/18 Insulin Glargine,Hum.rec.anlog 20 unit SQ HS 12/13/17 11/25/18 [Basaglar Kwikpen U-100] Omeprazole 20 mg PO DAILY 04/05/18 11/25/18 Gabapentin [Neurontin] 100 mg PO TID 04/18/18 11/25/18 OXcarbazepine [Trileptal] 600 mg PO BID 04/18/18 11/25/18 hydrOXYzine PAMOATE 25 mg PO HS 04/18/18 11/25/18 QUEtiapine FUMARATE [SEROquel] 300 mg PO HS 07/11/18 11/25/18 Allergies Allergy/AdvReac Type Severity Reaction Status Date / Time No Known Allergies Allergy Verified 11/25/18 14:24 Review of Systems ROS Statement: Those systems with pertinent positive or pertinent negative responses have been documented in the HPI. ROS Other: All systems not noted in ROS Statement are negative. Past Medical History Past Medical History: Cancer, CVA/TIA, Diabetes Mellitus, GERD/Reflux, Hyperlipidemia, Renal Disease Additional Past Medical History / Comment(s): Chronic pancreatitis, HEART MURMUR AND ENLARGED AORTA, tia's, colon polyps-benign., Pancreatic Cancer, "blood pressure tends to run low ended up in ICU" pt states recent UTI treated with antibiotics states has had continuing symptoms pt has called dr cardenas awaiting call back History of Any Multi-Drug Resistant Organisms: MRSA Date of last positivie culture/infection: 2015 MDRO Source:: face Past Surgical History: Appendectomy Additional Past Surgical History / Comment(s): CYST REMOVED FROM NECK. RT 3RD/4TH FINGER PARTIAL AMP D/T INJURY, lt ureter stent. COLONOSCOPY/POLYPECTOMY Past Anesthesia/Blood Transfusion Reactions: No Reported Reaction Past Psychological History: Anxiety, Depression, PTSD Smoking Status: Current every day smoker Past Alcohol Use History: None Reported Past Drug Use History: Marijuana - Past Family History Father Family Medical History: Liver Disease Additional Family Medical History / Comment(s): Father at age 78 from cirrhosis of the liver. Mother Additional Family Medical History / Comment(s): Mother is alive in her 80s Sister(s) Family Medical History: Coronary Artery Disease (CAD) Additional Family Medical History / Comment(s): Patient has 2 sisters and one has from an overdose. She has 1 brother with no major medical problems. 4cm aneurysm General Exam - General Exam Comments Initial Comments: 58-year-old female. Alert and oriented. No significant distress. Limitations: no limitations General appearance: alert, in no apparent distress Head exam: Present: atraumatic, normocephalic, normal inspection Eye exam: Present: normal appearance, PERRL, EOMI. Absent: scleral icterus, conjunctival injection, periorbital swelling ENT exam: Present: normal exam, mucous membranes moist Neck exam: Present: normal inspection. Absent: tenderness, meningismus, lymphadenopathy Respiratory exam: Present: normal lung sounds bilaterally. Absent: respiratory distress, wheezes, rales, rhonchi, stridor Cardiovascular Exam: Present: regular rate, normal rhythm, normal heart sounds. Absent: systolic murmur, diastolic murmur, rubs, gallop, clicks GI/Abdominal exam: Present: soft, normal bowel sounds. Absent: distended, tenderness, guarding, rebound, rigid Extremities exam: Present: normal inspection, full ROM, normal capillary refill. Absent: tenderness, pedal edema, joint swelling, calf tenderness Back exam: Present: normal inspection Neurological exam: Present: alert, oriented X3, CN II-XII intact Psychiatric exam: Present: normal affect, normal mood Skin exam: Present: warm, dry, intact, normal color. 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 She reports she's been having weight loss. Symptoms have been going on for the past 2-3 weeks. At this time patient's labwork was revi ewed and ultimately unremarkable. She does have history of chronic pancreatitis. Patient complains of diffuse abdominal pain. Computed tomography scan was completed. There is evidence of constipation, as well as on pancreas. These appear stable from her last exam. Patient has been advised that she is follow-up with GI specialty, she has no acute changes within her labs. She also has evidence of an old T11 compression fracture that is unchanged. Patient is advised of this. I discussed close follow-up with primary care doctor. - Lab Data Result diagrams: 11/25/18 14:45 11/25/18 14:45 Lab Results 11/25/18 11/25/18 11/25/18 Range/Units 14:45 14:45 15:19 WBC 7.5 (3.8-10.6) k/uL RBC 4.15 (3.80-5.40) m/uL Hgb 12.4 (11.4-16.0) gm/dL Hct 38.2 (34.0-46.0) % MCV 92.1 (80.0-100.0) fL MCH 30.0 (25.0-35.0) pg MCHC 32.6 (31.0-37.0) g/dL RDW 12.9 (11.5-15.5) % Plt Count 262 (150-450) k/uL Neutrophils % 47 % Lymphocytes % 44 % Monocytes % 3 % Eosinophils % 2 % Basophils % 1 % Neutrophils # 3.5 (1.3-7.7) k/uL Lymphocytes # 3.3 (1.0-4.8) k/uL Monocytes # 0.2 (0-1.0) k/uL Eosinophils # 0.2 (0-0.7) k/uL Basophils # 0.1 (0-0.2) k/uL Sodium 136 L (137-145) mmol/L Potassium 4.9 (3.5-5.1) mmol/L Chloride 106 (98-107) mmol/L Carbon Dioxide 23 (22-30) mmol/L Anion Gap 7 mmol/L BUN 18 H (7-17) mg/dL Creatinine 0.57 (0.52-1.04) mg/dL Est GFR (CKD-EPI)AfAm >90 (>60 ml/min/1.73 sqM) Est GFR (CKD-EPI)NonAf >90 (>60 ml/min/1.73 sqM) Glucose 320 H (74-99) mg/dL Calcium 9.2 (8.4-10.2) mg/dL Total Bilirubin 0.3 (0.2-1.3) mg/dL AST 26 (14-36) U/L ALT 21 (9-52) U/L Alkaline Phosphatase 74 (38-126) U/L Total Protein 6.4 (6.3-8.2) g/dL Albumin 3.8 (3.5-5.0) g/dL Amylase 52 (30-110) U/L Lipase 14 L (23-300) U/L Urine Color Yellow Urine Appearance Clear (Clear) Urine pH 5.5 (5.0-8.0) Ur Specific [place] 1.038 H (1.001-1.035) Urine Protein Negative (Negative) Urine Glucose (UA) 4+ H (Negative) Urine Ketones Negative (Negative) Urine Blood Negative (Negative) Urine Nitrite Negative (Negative) Urine Bilirubin Negative (Negative) Urine Urobilinogen <2.0 (<2.0) mg/dL Ur Leukocyte Esterase Negative (Negative) Acetone, Qual Negative (Negative) - Radiology Data Radiology results: report reviewed CT shows old compression fracture of T11 unchanged. Finger shows calcification consistent with chronic pancreatitis. Pancreas appears stable compared old exam. Noninjected bilateral renal colliculi clearing of renal cortical inflammatory changes. There is clearing of the left renal obstruction. Old exam. Constipation significantly increased compared old exam. Disposition Clinical Impression: Compression fracture of T11 vertebra, Chronic abdominal pain, Chronic pancreatitis Disposition: HOME SELF-CARE Condition: Good Instructions (If sedation given, give patient instructions): Gastroenteritis (ED) Additional Instructions: Patient advsied follow-up with your primary care doctor. Return to the emergency department if any alarming signs or symptoms occur. Patient advised to follow-up with music therapy specialist regards the T11 fracture. Is patient prescribed a controlled substance at d/c from ED?: No Referrals: Cecilia Cortez MD [Primary Care Provider] - 1-2 days Baldev Prescott MD [STAFF PHYSICIAN] - 1-2 days Jc Bates DO [Doctor of Osteopathic Medicine] - 1-2 days Time of Disposition: 17:42
[2018-11-25 17:00] VITALS: BP 129/71; PULSE 76
--- NOTE | 2018-11-25 17:31 | CT ---
EXAMINATION TYPE: CT abdomen pelvis w con DATE OF EXAM: 11/25/2018 COMPARISON: 04/05/2018 HISTORY: Weight loss and abdominal pain, pancreatic CA CT DLP: 583.8 mGycm Automated exposure control for dose reduction was used. TECHNIQUE: Helical acquisition of images was performed from the lung bases through the pelvis. CONTRAST: Performed without Oral Contrast and with IV Contrast, patient injected with 100 mL of Isovue 300. FINDINGS: Lung bases are clear of consolidation. There is mild subsegmental atelectasis at the lung bases. Ther e is no pleural effusion. Heart size is normal. There is no pericardial effusion. Liver and gallbladder appear intact. Spleen is intact. There is extensive pancreatic calcification. T his is consistent with old inflammatory disease. There is no adrenal mass. Kidneys show satisfactory contrast opacification. There is no hydronephrosi s. Ureters are not dilated. There is 2 mm calculus lower pole right kidney. Abdominal aorta is athero matous. There is no retroperitoneal adenopathy. Bladder distends smoothly. There is no inguinal herni a. There is no free fluid in the pelvis. There is no evidence of free air. There is no ascites. There is retained fecal material throughout the large bowel. There is 12 mm cortical cyst in the right kidney . There is 2 mm calculus lower pole left kidney. Abdominal aorta is atheromatous. I see no bony destr uctive process. Bony pelvis appears intact. There is 10% anterior wedging of T11 vertebra. IMPRESSION: OLD COMPRESSION FRACTURE T11 UNCHANGED. EXTENSIVE PANCREATIC CALCIFICATION CONSISTENT WITH CHRONIC PA NCREATITIS. PANCREAS APPEARS STABLE COMPARED TO OLD EXAM. NONOBSTRUCTING TINY BILATERAL RENAL CALCULI. THERE IS CLEARING OF THE RENAL CORTICAL INFLAMMATORY JOE NGES. THERE IS CLEARING OF LEFT RENAL OBSTRUCTION COMPARED TO OLD EXAM. THERE IS CONSTIPATION SIGNIFICANTLY INCREASED COMPARED TO OLD EXAM.
== END 2018-11-25 17:54 | disposition home or self-care (01) ==
LOC: EC 13:58
DX: K86.1 Other chronic pancreatitis (principal); G89.29 Other chronic pain; M48.54XA Collapsed vertebra, not elsewhere classified, thoracic region, initial encounter for fracture; K59.00 Constipation, unspecified; E11.9 Type 2 diabetes mellitus without complications; K21.9 Gastro-esophageal reflux disease without esophagitis; F32.9 Major depressive disorder, single episode, unspecified; F17.200 Nicotine dependence, unspecified, uncomplicated; Z79.4 Long term (current) use of insulin; Z79.899 Other long term (current) drug therapy; Z85.07 Personal history of malignant neoplasm of pancreas
CPT/HCPCS: 99285; 96374; 96375 ×2; 96361 ×3; 36415; 80053; 82150; 82009; 83690; 85025; 81003; 71046; 74018; 74177; J2405; J1170; C9113; Q9967

== ENCOUNTER 2018-12-13 07:04 | Day surgery (SDC) | payer OTHER ==
[2018-12-11 15:27] VITALS: BMI 19.8
[~2018-12-13 07:04] MED LIST changes: -DEXAMETHASONE SOD PHOSPHATE 10 MG/ML 1 ML VIAL IV ONE; -HYDROmorphone 0.5 MG/0.5 ML SYRINGE IVP PRN; -LIDOCAINE 1% 20 ML VIAL (10MG/ML) FOR IV START INTRADERMA PRN; -MIDAZOLAM 2 MG/2 ML VIAL IV PRN; -ONDANSETRON 4 MG/2 ML VIAL IVP ONE; -ceFAZolin IN SWFI 2 GM/20 ML SYRINGE IVP ONE; -fentaNYL (PF) 50 MCG/ML 2 ML AMP IV PRN
[2018-12-13] MEDS ORDERED: LIDOCAINE 1% 20 ML VIAL (10MG/ML) FOR IV START INTRADERMA ONE (07:26)
[2018-12-13 07:36] VITALS: RESP 16; TEMP 97
[2018-12-13 07:41] LABS: Glucose,Whole Blood 205 mg/dL (75-99)
[2018-12-13] MEDS ORDERED: PROPOFOL 10 MG/ML 20 ML VIAL IV ONE (08:03)
--- NOTE | 2018-12-13 08:31 | P.PCN ---
Date of Procedure: 12/13/18 Procedure(s) Performed: Brief history: Patient is a pleasant 58-year-old white female, scheduled for an elective upper endoscopy as well as colonoscopy as a part of evaluation of chronic diarrhea, progressive weight loss of 40 pounds in the last 1 year duration. She also completed severe epigastric pain. She has history of chronic pancreatitis related to alcohol use in the past. Procedure performed: Esophagogastroduodenoscopy with biopsy Colonoscopy with biopsy Preoperative diagnosis: Epigastric pain, chronic diarrhea and progressive weight loss of 40 pounds in 1 year duration. Anesthesia: MAC Procedure: After informed consent was obtained from the patient was brought into the endoscopy unit and IV sedation was administered by anesthesia under continuous monitoring. Initially upper endoscopy was done. The Olympus GF 160 video endoscope was inserted inserted into the mouth and esophagus intubated without any difficulty and was gradually advanced into the stomach and duodenum and carefully examined. The bulb and second part of the duodenum appeared normal. She is the duodenum to rule out celiac disease. The scope was then withdrawn into the stomach adequately insufflated with air and upon careful examination the antrum had mild ascites and biopsies were done from this area. The body, cardia and fundus appeared normal. The scope was then withdrawn into the esophagus. The GE junction was located at 40 cm to the incisors. It appeared regular with no erythema erosions or ulcerations. Rest of the esophagus appeared normal. Patient tolerated the procedure well. At this time the patient continued to remain sedation. Initial digital rectal examination was normal. Olympus CF 160 video colonoscope was then inserted into the rectum and gradually advanced to the cecum without any difficulty. Careful examination was performed as the scope was gradually being withdrawn. The prep was excellent. The cecum, ascending colon, transverse colon, descending colon, sigmoid colon and rectum appeared normal. Random biopsies were done from ascending and descending colon to rule out microscopic/collagenous colitis. Retroflexion was performed in the rectum and no lesions were noted. Patient tolerated the procedure well. Impression: 1. Upper endoscopy revealed mild antral gastritis 2. Colonoscopy Was essentially within normal limits with no evidence of colitis or colorectal neoplasia.. Recommendations: Findings of this examination were discussed with the patient as well as her family. She was advised to follow with the biopsy results. She'll be seen in office in 2 weeks.
[2018-12-13 08:49] VITALS: BP 111/76; PULSE 70
[2018-12-13 09:02] LABS: Glucose,Whole Blood 155 mg/dL (75-99)
== END 2018-12-13 09:04 | disposition home or self-care (01) ==
LOC: ORWHC2ENDO 07:04
PROVIDERS: ATTEND Internal Medicine Gastroenterology
DX: K52.9 Noninfective gastroenteritis and colitis, unspecified (principal); K29.50 Unspecified chronic gastritis without bleeding; E78.5 Hyperlipidemia, unspecified; E11.9 Type 2 diabetes mellitus without complications; K21.9 Gastro-esophageal reflux disease without esophagitis; Z86.73 Personal history of transient ischemic attack (TIA), and cerebral infarction without residual deficits; K86.1 Other chronic pancreatitis; Z79.4 Long term (current) use of insulin; Z72.0 Tobacco use; Z79.899 Other long term (current) drug therapy
CPT/HCPCS: 88305; 45380; 43239; J2704

== ENCOUNTER 2019-01-21 08:33 | Inpatient (IN) | payer MEDICAID, OTHER ==
--- NOTE | 2019-01-21 08:55 | ED ---
Psych HPI - General Source: patient, police, RN notes reviewed Limitations: no limitations <Ronan Lassiter - Last Filed: 01/21/19 10:35> <Bill Bales - Last Filed: 01/21/19 10:57> - General Chief Complaint: Psychiatric Symptoms Stated Complaint: Petition Time Seen by Provider: 01/21/19 08:44 - History of Present Illness Initial Comments: 58-year-old female presents emergency Department chief complaint of homicidal and suicidal ideation. Patient was brought in the emergency department by [facility] from shelter. Patient states that she's been using drugs and alcohol and states that she's been using everything she can get her hands on. She denies any new physical complaints. Patient states that she needs to do time a psych m[facility]intosh. Patient has a long history of psychiatric disorders. (Ronan Lassiter) - Related Data Home Medications Medication Instructions Recorded Confirmed metFORMIN HCL [Glucophage] 500 mg PO BID 05/04/17 01/21/19 Insulin Glargine,Hum.rec.anlog 30 unit SQ HS 12/13/17 01/21/19 [Basaglar Kwikpen U-100] Omeprazole 20 mg PO DAILY 04/05/18 01/21/19 QUEtiapine FUMARATE [SEROquel] 300 mg PO HS 07/11/18 01/21/19 Cyclobenzaprine HCl 5 mg PO TID 12/11/18 01/21/19 Cyanocobalamin (Vitamin B-12) 5,000 mcg PO DAILY 01/21/19 01/21/19 [Vitamin B-12] Ergocalciferol [Vitamin D2] 50,000 unit PO Q7D 01/21/19 01/21/19 Gabapentin [Neurontin] 300 mg PO TID 01/21/19 01/21/19 Lipase/Protease/Amylase [Zenpep Dr 4 cap PO TID 01/21/19 01/21/19 25,000 Unit Capsule] hydrOXYzine PAMOATE [Vistaril] 25 mg PO DAILY 01/21/19 01/21/19 lamoTRIgine [LaMICtal] 600 mg PO TID 01/21/19 01/21/19 Allergies Allergy/AdvReac Type Severity Reaction Status Date / Time No Known Allergies Allergy Verified 01/21/19 09:03 Review of Systems ROS Other: All systems not noted in ROS Statement are negative. <Ronan Lassiter - Last Filed: 01/21/19 10:35> ROS Other: All systems not noted in ROS Statement are negative. <Bill Bales - Last Filed: 01/21/19 10:57> ROS Statement: Those systems with pertinent positive or pertinent negative responses have been documented in the HPI. 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 RT 3RD/4TH FINGER PARTIAL AMP D/T INJURY, lt ureter stent. COLONOSCOPY/POLYPECTOMY Past Anesthesia/Blood Transfusion Reactions: Motion Sickness, Postoperative Nausea & Vomiting (PONV) Past Psychological History: Anxiety, Bipolar, Depression, PTSD, Schizophrenia Smoking Status: Current every day smoker - Past Family History Father Family Medical History: Liver Disease Additional Family Medical History / Comment(s): Father at age 78 from cirrhosis of the liver. Mother Additional Family Medical History / Comment(s): Mother is alive in her 80s Sister(s) Family Medical History: Coronary Artery Disease (CAD) Additional Family Medical History / Comment(s): Patient has 2 sisters and one has from an overdose. She has 1 brother with no major medical problems. 4cm aortic aneurysm <Ronan Lassiter - Last Filed: 01/21/19 10:35> General Exam Limitations: altered mental status General appearance: alert, in no apparent distress Head exam: Present: atraumatic, normocephalic, normal inspection Eye exam: Present: normal appearance, PERRL, EOMI. Absent: scleral icterus, conjunctival injection, periorbital swelling ENT exam: Present: normal exam, normal oropharynx, mucous membranes moist Neck exam: Present: normal inspection. Absent: tenderness, meningismus, lymphadenopathy Respiratory exam: Present: normal lung sounds bilaterally. Absent: respiratory distress, wheezes, rales, rhonchi, stridor Cardiovascular Exam: Present: regular rate, normal rhythm, normal heart sounds. Absent: systolic murmur, diastolic murmur, rubs, gallop, clicks GI/Abdominal exam: Present: soft, normal bowel sounds. Absent: distended, tenderness, guarding, rebound, rigid Neurological exam: Present: alert, oriented X3, CN II-XII intact, reflexes normal. Absent: motor sensory deficit Skin exam: Present: warm, dry, intact, normal color. Absent: rash <Ronan Lassiter - Last Filed: 01/21/19 10:35> Course Vital Signs 01/21/19 08:39 Temperature 97.9 F Pulse Rate 69 Respiratory 18 Rate Blood Pressure 135/87 O2 Sat by Pulse 97 Oximetry Medical Decision Making <Ronan Lassiter - Last Filed: 01/21/19 10:35> <Bill Bales - Last Filed: 01/21/19 10:57> - Medical Decision Making 58-year-old female presented for psychiatric evaluation. Patient will be e valuated by psychiatrist inpatient (Ronan Lassiter) Patient seen by mental health services who would like to admit patient. Patient is brought by time in shelter. Patient admits to having suicidal and homicidal thoughts. Patient she has not been eating or drinking. Patient also admits to not taking her medications. (Bill Bales) - Lab Data Lab Results 01/21/19 01/21/19 Range/Units 09:06 09:34 POC Glucose (mg/dL) 302 H (75-99) mg/dL POC Glu Line Fixer ID Beatrice Bucio Serum Alcohol <10 mg/dL Disposition <Ronan Lassiter - Last Filed: 01/21/19 10:35> <Bill Bales - Last Filed: 01/21/19 10:57> Clinical Impression: Bipolar disorder, Giuliana Disposition: TRANSFER TO PSYCH HOSP/UNIT Referrals: Cecilia Cortez MD [Primary Care Provider] - 1-2 days
[2019-01-21 09:38] LABS: Glucose,Whole Blood 302 mg/dL (75-99)
[2019-01-21] MEDS ORDERED: INSULIN ASPART (NovoLOG) 100 UNIT/ML VIAL SQ ONE (09:43)
[2019-01-21] MEDS ORDERED: LORazepam 2 MG/ML INJ IM STA (10:34)
[2019-01-21] MEDS ORDERED: MAGNESIUM HYDROXIDE 2,400 MG/10 ML CUP PO PRN (13:14)
[2019-01-21] MEDS ORDERED: LORazepam 2 MG/ML INJ IM PRN (13:17)
[2019-01-21 13:29] LABS: Glucose,Whole Blood 77 mg/dL (75-99)
[2019-01-21] MEDS: CYANOCOBALAMIN 500 MCG TAB PO SCH (14:42)
[2019-01-21] MEDS: PANTOPRAZOLE 40 MG TABLET PO SCH (14:43)
--- NOTE | 2019-01-21 16:10 | P.MDCNMH ---
History of Present Illness H&P Date: 01/21/19 Chief Complaint: Suicidal ideation Patient is a 58-year-old female with a known history of diabetes type 2, history of CVA/TIA, GERD, hyperlipidemia, chronic pancreatitis and previous history of TIAs and history of throat cancer at age 6, anxiety/depression/bipolar and PTSD and currently every day smoker [facility] Patient has been using IV drugs, alcohol and has been smoking a day. Patient says that she was having suicidal and homicidal thoughts. Denied any complaints of chest pain or shortness of breath. No nausea vomiting or abdominal pain. Denied any physical complaints otherwise. No fever no chills. Cough without sputum production. Laboratory data is pending at this time. CBG greater than 300 on admission. Review of Systems Constitutional: Patient denies any fever or chills . No generalized weakness or weight loss. Abdomen: Patient denied nausea vomiting and diarrhea and abdominal pain. Cardiovascular: Patient denies any chest pain or short of breath no palpitations. Respiratory: patient denied any cough is from production. No shortness of breath Neurologic: Patient denied any numbness or tingling headache. Musculoskeletal: Patient denies any complaints of joint swelling or deformity. Patient is a poor historian and could not provide a reliable history. Complete review of systems could not be obtained from the patient. 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 RT 3RD/4TH FINGER PARTIAL AMP D/T INJURY, lt ureter stent. COLONOSCOPY/POLYPECTOMY Past Anesthesia/Blood Transfusion Reactions: Motion Sickness, Postoperative Nausea & Vomiting (PONV) Past Psychological History: Anxiety, Bipolar, Depression, PTSD, Schizophrenia Smoking Status: Current every day smoker - Past Family History Father Family Medical History: Liver Disease Additional Family Medical History / Comment(s): Father at age 78 from cirrhosis of the liver. Mother Additional Family Medical History / Comment(s): Mother is alive in her 80s Sister(s) Family Medical History: Coronary Artery Disease (CAD) Additional Family Medical History / Comment(s): Patient has 2 sisters and one has from an overdose. She has 1 brother with no major medical problems. 4cm aortic aneurysm Medications and Allergies Home Medications Medication Instructions Recorded Confirmed Type metFORMIN HCL [Glucophage] 500 mg PO BID 05/04/17 01/21/19 History Insulin Glargine,Hum.rec.anlog 30 unit SQ HS 12/13/17 01/21/19 History [Basaglar Kwikpen U-100] Omeprazole 20 mg PO DAILY 04/05/18 01/21/19 History QUEtiapine FUMARATE [SEROquel] 300 mg PO HS 07/11/18 01/21/19 History Cyclobenzaprine HCl 5 mg PO TID 12/11/18 01/21/19 History Cyanocobalamin (Vitamin B-12) 5,000 mcg PO DAILY 01/21/19 01/21/19 History [Vitamin B-12] Ergocalciferol [Vitamin D2] 50,000 unit PO Q7D 01/21/19 01/21/19 History Gabapentin [Neurontin] 300 mg PO TID 01/21/19 01/21/19 History INSULIN ASPART (NovoLOG) [NovoLOG See Protocol SQ AC-TID 01/21/19 01/21/19 History (formulary)] Lipase/Protease/Amylase [Zenpep Dr 4 cap PO TID 01/21/19 01/21/19 History 25,000 Unit Capsule] OXcarbazepine [Trileptal] 600 mg PO BID 01/21/19 01/21/19 History hydrOXYzine PAMOATE [Vistaril] 25 mg PO DAILY 01/21/19 01/21/19 History Allergies Allergy/AdvReac Type Severity Reaction Status Date / Time No Known Allergies Allergy Verified 01/21/19 14:27 Physical Exam Vitals: Vital Signs Temp Pulse Pulse Resp BP BP Pulse Ox 01/21/19 13:59 96.7 F L 63 16 98/53 97 01/21/19 08:39 97.9 F 69 18 135/87 97 Intake and Output 01/20/19 01/21/19 01/21/19 22:59 06:59 14:59 Other: Weight 54.431 kg PHYSICAL EXAMINATION: Patient is lying in the bed comfortably, no acute distress, awake alert and oriented.. HEENT: Normocephalic. Neck is supple. Pupils reactive. Nostrils clear. Oral cavity is moist. Ears reveal no drainage. Neck reveals no JVD, carotid bruits, or thyromegaly. CHEST EXAMINATION: Trachea is central. Symmetrical expansion. Lung obrien clear to auscultation and percussion. CARDIAC: Normal S1, S2 with no gallops. No murmurs ABDOMEN: Soft. Bowel sounds normal. No organomegaly. No abdominal bruits. Extremities: reveal no edema. No clubbing or cyanosis Neurologically awake, alert, oriented x3 with well-coordinated movements. No focal deficits noted Skin: No rash or skin lesions. Psychiatric: Coperative. Could not basis completely. Musculoskeletal: No joint swelling or deformity. Normal range of motion. Cranial Nerve Examination - Cranial Nerves Cranial Nerve I- Olfactory: Intact Cranial Nerve II- Optic: Intact Cranial Nerve III- Oculomotor: Intact Cranial Nerve IV- Trochlear: Intact Cranial Nerve V- Trigeminal: Intact Cranial Nerve - Abducens: Intact Cranial Nerve VII- Facial: Intact Cranial Nerve VIII- Auditory: Intact Cranial Nerve IX- Glossopharyngeal: Intact Cranial Nerve X- Vagus: Intact Cranial Nerve XI- Accessory: Intact Cranial Nerve XII- Hypoglossal: Intact Results Labs: Abnormal Lab Results - Last 24 Hours (Table) 01/21/19 Range/Units 09:34 POC Glucose (mg/dL) 302 H (75-99) mg/dL Assessment and Plan Assessment: Acute suicidal and homicidal ideation. Polysubstance abuse including IVDU Chronic pancreatitis Nicotine addiction Anxiety/depression/bipolar and PTSD and schizophrenia Diabetes type 2 insulin-dependent Chronic kidney disease GERD History of CVA/TIA with no residual weakness History of throat cancer at age 6 Bilateral diabetic peripheral neuropathy History of colon polyp removal DVT prophylaxis. Patient is ambulatory currently Plan: Patient will be continued on insulin sliding scale and metformin as per home dose. Patient also takes Lantus 30 units daily at bedtime. We will monitor blood sugar closely. Continue with Creon. Follow-up CBC, CMP, TSH, freeT4, UDS and other laboratory data. Continue with current psychiatric management. Smoking cessation and polysubstance abuse has been counseled extensively. Time with Patient: Greater than 30
[2019-01-21] MEDS: metFORMIN 500 MG TAB PO SCH (16:22)
[2019-01-21] MEDS: NICOTINE 14MG/24HR PATCH TRANSDERM SCH (16:22)
[2019-01-21] MEDS: LORazepam 1 MG TAB PO PRN (16:26)
[2019-01-21] MEDS: ZIPRASIDONE 20 MG VIAL IM PRN (16:55)
[2019-01-21] MEDS: LIPASE 5,000/PROTEASE 17,000/AMYLASE 24,000 PO SCH ×3 (17:53→21:39)
[2019-01-21 19:08] LABS: Glucose,Whole Blood 208 mg/dL (75-99)
[2019-01-21 20:07] LABS: Glucose,Whole Blood 180 mg/dL (75-99)
[2019-01-21] MEDS ORDERED: QUEtiapine 100 MG TAB PO SCH (21:00)
[2019-01-21] MEDS: OXcarbazepine 300 MG TAB PO SCH ×2 (21:21→21:41)
[2019-01-21] MEDS: GABAPENTIN 100 MG CAP PO SCH (21:21)
[2019-01-21] MEDS: INSULIN DETEMIR (LEVEMIR) 100 UNIT/ML SYR SQ SCH (21:22)
[2019-01-22] MEDS ORDERED: WATER FOR INJECTION, STERILE 10 ML IV ONE (05:31)
[2019-01-22] MEDS ORDERED: ZIPRASIDONE 20 MG VIAL IM ONE (05:31)
[2019-01-22] MEDS: ZIPRASIDONE 20 MG VIAL IM PRN ×2 (06:04→13:41)
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
[2019-01-22 07:47] LABS: Glucose,Whole Blood 65 mg/dL (75-99)
[2019-01-22 08:10] LABS: Glucose,Whole Blood 240 mg/dL (75-99)
[2019-01-22] MEDS: PANTOPRAZOLE 40 MG TABLET PO SCH (08:20)
[2019-01-22] MEDS: metFORMIN 500 MG TAB PO SCH ×2 (08:21→17:35)
[2019-01-22] MEDS: OXcarbazepine 300 MG TAB PO SCH (08:52)
[2019-01-22] MEDS: CYANOCOBALAMIN 500 MCG TAB PO SCH (08:52)
[2019-01-22] MEDS: LIPASE 5,000/PROTEASE 17,000/AMYLASE 24,000 PO SCH ×3 (08:53→20:41)
[2019-01-22] MEDS: GABAPENTIN 100 MG CAP PO SCH ×2 (08:54→20:41)
[2019-01-22] MEDS: NICOTINE 14MG/24HR PATCH TRANSDERM SCH (08:54)
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
[2019-01-22] MEDS: DIVALPROEX ER 500 MG TAB.ER.24H PO SCH ×2 (10:25→20:41)
[2019-01-22] MEDS: LORazepam 1 MG TAB PO PRN ×2 (11:40→20:41)
[2019-01-22 12:43] LABS: Glucose,Whole Blood 157 mg/dL (75-99)
[2019-01-22] MEDS: HALOPERIDOL LACTATE 5 MG/ML 1 ML VIAL IM PRN (16:50)
[2019-01-22] MEDS: LORazepam 2 MG/ML INJ IM PRN (16:51)
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
[2019-01-22 17:30] LABS: Glucose,Whole Blood 188 mg/dL (75-99)
[2019-01-22 20:17] LABS: Glucose,Whole Blood 211 mg/dL (75-99)
[2019-01-22] MEDS: QUEtiapine 200 MG TAB PO SCH (20:41)
[2019-01-22] MEDS: INSULIN DETEMIR (LEVEMIR) 100 UNIT/ML SYR SQ SCH (20:42)
[2019-01-23] MEDS: PANTOPRAZOLE 40 MG TABLET PO SCH (07:55)
[2019-01-23] MEDS: metFORMIN 500 MG TAB PO SCH ×2 (07:55→17:50)
[2019-01-23 07:59] LABS: Glucose,Whole Blood 117 mg/dL (75-99)
--- NOTE | 2019-01-23 08:08 | P.PN ---
Progress Note - Text Interval history: The patient is found in the front end application developer she follows me to the library to speak. She indicates her mood is better. She is hoping to be discharged soon. I did receive a call late yesterday afternoon that the patient had been physically agitated and physically aggressive with peers and staff. We discontinued the Geodon and change to a Haldol when necessary. She did receive that injection with Ativan. She required use of seclusion at that time as well. The patient states that she feels very tired. Spontaneously she demonstrates disorganization of thought. She lacks insight into her current symptoms and denies having any symptoms when going through a psychiatric review. Mental status exam: The patient is a thin female appearing older than her stated age. She is alert but appears very tired. She is not lethargic. She is ambulating slowly without any ataxia. She demonstrates significant diso rganization of thought. She clearly struggles with maintaining attention and concentration. She denies having any psychiatric symptoms lacking insight into her current condition. Subsequently her judgment is impaired. During our interaction she demonstrated no verbal or physical aggressiveness. She does demonstrate lability of affect. She reports feeling safe in the hospital she indicates she has no thoughts of harming herself or others but she does have feelings of anger at times. Impression/plan: Symptoms of juan and psychosis, we will continue her current medications as written. We will monitor her for safety. Vital signs reviewed. We will review any further lab work studies. We will await the results of the deferral conference. The patient is still acutely manic and psychotic and requires inpatient psychiatric hospitalization for safety reasons. We will provide reality orientation when possible.
[2019-01-23 08:13] LABS: Basophils # (A) 0.1 k/uL (0-0.2); Basophils % (A) 1 %; Eosinophils # (A) 0.1 k/uL (0-0.7); Eosinophils % (A) 2 %; HCT 40.3 % (34.0-46.0); HGB 13.1 gm/dL (11.4-16.0); Lymphocytes # (A) 3.9 k/uL (1.0-4.8); Lymphocytes % (A) 53 %; MCH 30.5 pg (25.0-35.0); MCHC 32.4 g/dL (31.0-37.0); MCV 94.1 fL (80.0-100.0); Mean Platelet Volume 7.4; Monocytes # (A) 0.3 k/uL (0-1.0); Monocytes % (A) 4 %; Neutrophils # (A) 2.7 k/uL (1.3-7.7); Neutrophils % (A) 37 %; Platelet Count 242 k/uL (150-450); RBC 4.29 m/uL (3.80-5.40); RDW 12.8 % (11.5-15.5); WBC 7.3 k/uL (3.8-10.6)
[2019-01-23 08:23] LABS: ALT 27 U/L (9-52); AST 27 U/L (14-36); African American GFR (CKD) >90 (>60 ml/min/1.73 sqM); Albumin 4.1 g/dL (3.5-5.0); Alkaline Phosphatase 68 U/L (38-126); Anion Gap 9 mmol/L; Blood Urea Nitrogen 18 mg/dL (7-17); Calcium 9.5 mg/dL (8.4-10.2); Carbon Dioxide 28 mmol/L (22-30); Chloride 102 mmol/L (98-107); Cholesterol 112 mg/dL (<200); Glucose 132 mg/dL (74-99); HDL Cholesterol 41 mg/dL (40-60); LDL Cholesterol,Calculated 48 mg/dL (0-99); Potassium 4.2 mmol/L (3.5-5.1); Sodium 139 mmol/L (137-145); Total Bilirubin 0.4 mg/dL (0.2-1.3); Total Protein 6.9 g/dL (6.3-8.2); Triglycerides 117 mg/dL (<150)
[2019-01-23] MEDS: NICOTINE 14MG/24HR PATCH TRANSDERM SCH (08:23)
[2019-01-23] MEDS: CYANOCOBALAMIN 500 MCG TAB PO SCH (08:23)
[2019-01-23] MEDS: GABAPENTIN 100 MG CAP PO SCH ×2 (08:24→20:44)
[2019-01-23] MEDS: LIPASE 5,000/PROTEASE 17,000/AMYLASE 24,000 PO SCH ×3 (08:24→20:45)
[2019-01-23] MEDS: DIVALPROEX ER 500 MG TAB.ER.24H PO SCH ×2 (08:24→20:44)
[2019-01-23] MEDS: LORazepam 1 MG TAB PO PRN ×4 (08:33→20:52)
[2019-01-23 12:31] LABS: Glucose,Whole Blood 174 mg/dL (75-99)
[2019-01-23 14:25] LABS: Hemoglobin A1C 10.4 % (4.0-6.0)
[2019-01-23 17:47] LABS: Glucose,Whole Blood 256 mg/dL (75-99)
[2019-01-23 20:12] LABS: Glucose,Whole Blood 276 mg/dL (75-99)
[2019-01-23] MEDS: QUEtiapine 200 MG TAB PO SCH (20:44)
[2019-01-23] MEDS: INSULIN DETEMIR (LEVEMIR) 100 UNIT/ML SYR SQ SCH ×2 (20:47→20:58)
[2019-01-24] MEDS: ACETAMINOPHEN TAB 325 MG TAB PO PRN ×2 (02:05→14:07)
[2019-01-24] MEDS: MAG HYDROX/AL HYDROX/SIMETH 30 ML CUP PO PRN (02:06)
[2019-01-24 07:32] LABS: Glucose,Whole Blood 211 mg/dL (75-99)
[2019-01-24] MEDS: INSULIN ASPART (NovoLOG) 100 UNIT/ML VIAL SQ SCH ×4 (07:49→20:09)
[2019-01-24] MEDS: LIPASE 5,000/PROTEASE 17,000/AMYLASE 24,000 PO SCH ×3 (07:52→20:14)
[2019-01-24] MEDS: DIVALPROEX ER 500 MG TAB.ER.24H PO SCH ×2 (07:54→20:13)
[2019-01-24] MEDS: metFORMIN 500 MG TAB PO SCH ×2 (07:54→17:28)
[2019-01-24] MEDS: CYANOCOBALAMIN 500 MCG TAB PO SCH (07:54)
[2019-01-24] MEDS: GABAPENTIN 100 MG CAP PO SCH ×2 (07:54→20:13)
[2019-01-24] MEDS: PANTOPRAZOLE 40 MG TABLET PO SCH (07:57)
[2019-01-24] MEDS: NICOTINE 14MG/24HR PATCH TRANSDERM SCH (07:58)
--- NOTE | 2019-01-24 08:53 | P.PN ---
Progress Note - Text Interval history: The patient is found in the hallway she follows me to the library to speak. She indicates her mood is good. She feels that she slept better last night staff reported she slept 4 hours. She does endorse continued racing thoughts. She does get confused at times she admits. Staff report no physical aggressive behavior in the last 24 hours. Apparently she did disrobe in one of the lounges she was directed to put her clothes back on and she follow direction. We reviewed her psychotropic medication she has no questions or concerns. She does inquire into the meaning of the deferral conference. Once again we discussed the purpose of that meeting. Mental status exam: The patient is alert she is a thin female appearing older than her stated age. She continues to appear tired but less so than yesterday morning. She is not lethargic. She admits to having racing thoughts which makes it difficult to focus. She does demonstrate some tangential thinking. She is reporting no auditory or visual hallucinations. She indicates feeling safe in the hospital and believes she is being cared for well. She is endorsing no suicidal or homicidal ideation. She demonstrates no verbal or physical aggressiveness during our session. She demonstrates no involuntary repetitive movements. Insight and judgment remains impaired at this time. Impressions/plan: Continued symptoms of juan and psychosis, the patient will continue on her current medication. There appears to be some mild improvement compared to the last 1-2 days. We will give the Depakote more time to reach steady state and then we'll draw a level. We will monitor her for safety and for agitation. We will encourage her participation in the milieu. Reality orientation and provide when possible. She requires continued psychiatric hospitalization due to continued psychosocial dysfunction. Vital signs reviewed.
[2019-01-24] MEDS: LORazepam 1 MG TAB PO PRN ×2 (12:10→17:03)
[2019-01-24 12:31] LABS: Glucose,Whole Blood 107 mg/dL (75-99)
[2019-01-24 17:22] LABS: Glucose,Whole Blood 195 mg/dL (75-99)
[2019-01-24 20:07] LABS: Glucose,Whole Blood 240 mg/dL (75-99)
[2019-01-24] MEDS: INSULIN DETEMIR (LEVEMIR) 100 UNIT/ML SYR SQ SCH (20:10)
[2019-01-24] MEDS: QUEtiapine 200 MG TAB PO SCH (20:13)
[2019-01-25] MEDS: HALOPERIDOL LACTATE 5 MG/ML 1 ML VIAL IM PRN (01:18)
[2019-01-25] MEDS: LORazepam 2 MG/ML INJ IM PRN (01:18)
[2019-01-25 07:43] LABS: Glucose,Whole Blood 71 mg/dL (75-99)
[2019-01-25] MEDS: metFORMIN 500 MG TAB PO SCH ×2 (08:20→17:51)
[2019-01-25] MEDS: GABAPENTIN 100 MG CAP PO SCH ×2 (08:20→20:18)
[2019-01-25] MEDS: DIVALPROEX ER 500 MG TAB.ER.24H PO SCH ×2 (08:20→20:18)
[2019-01-25] MEDS: CYANOCOBALAMIN 500 MCG TAB PO SCH (08:20)
[2019-01-25] MEDS: PANTOPRAZOLE 40 MG TABLET PO SCH (08:20)
[2019-01-25] MEDS: LIPASE 5,000/PROTEASE 17,000/AMYLASE 24,000 PO SCH ×3 (08:20→20:18)
[2019-01-25] MEDS: NICOTINE 14MG/24HR PATCH TRANSDERM SCH (08:21)
[2019-01-25] MEDS: LORazepam 1 MG TAB PO PRN ×2 (08:22→22:36)
[2019-01-25] MEDS: INSULIN ASPART (NovoLOG) 100 UNIT/ML VIAL SQ SCH ×4 (08:25→20:18)
--- NOTE | 2019-01-25 09:24 | P.PN ---
Progress Note - Text Interval history: The patient is found in the hallway she follows me to an interview room. She indicates her mood is "great". Staff reported that she received a Haldol and Ativan injection last evening due to agitation. She admits that she was up in the night was walking in the hallway and possibly with loud. After receiving injections she slept throughout the night into the morning. She is requesting to be discharged she states that she feels she is back to her baseline. She met with her senior attorney and signed a deferral agreeme nt. We reviewed her psychotropic medications her questions were answered. Mental status exam: The patient is a thin female appearing older than her stated age. She has adequate eye contact speech is fluent and spontaneous nonpressured. She continues to demonstrate disorganization of her thought process. Affect can still be labile. There may still be some paranoid thinking. She demonstrates no verbal or physical aggressiveness during our interaction. She is reporting no symptoms such as suicidal or homicidal thoughts she is endorsing no symptoms of psychosis. She has impaired insight into her current symptoms of juan. Impression/plan: Continued symptoms of juan, continue medications as written. We are allowing the Depakote time to reach steady state. She does appear to be slowly improving. We will consider re-titrating the Seroquel if needed. Vital signs reviewed. She is encouraged to participate in the milieu. Reality orientation is provided when possible.
[2019-01-25 12:11] LABS: Glucose,Whole Blood 235 mg/dL (75-99)
[2019-01-25 17:50] LABS: Glucose,Whole Blood 173 mg/dL (75-99)
[2019-01-25] MEDS: ACETAMINOPHEN TAB 325 MG TAB PO PRN (17:51)
[2019-01-25 20:06] LABS: Glucose,Whole Blood 171 mg/dL (75-99)
[2019-01-25] MEDS: INSULIN DETEMIR (LEVEMIR) 100 UNIT/ML SYR SQ SCH (20:17)
[2019-01-25] MEDS: QUEtiapine 200 MG TAB PO SCH (20:18)
[2019-01-25] MEDS: MAG HYDROX/AL HYDROX/SIMETH 30 ML CUP PO PRN (22:37)
[2019-01-26] MEDS: ACETAMINOPHEN TAB 325 MG TAB PO PRN ×3 (02:17→16:49)
[2019-01-26] MEDS: LORazepam 1 MG TAB PO PRN ×3 (04:10→21:11)
[2019-01-26] MEDS: MAG HYDROX/AL HYDROX/SIMETH 30 ML CUP PO PRN (06:47)
[2019-01-26 08:03] LABS: Glucose,Whole Blood 148 mg/dL (75-99)
[2019-01-26] MEDS: CYANOCOBALAMIN 500 MCG TAB PO SCH (08:10)
[2019-01-26] MEDS: GABAPENTIN 100 MG CAP PO SCH ×2 (08:11→20:26)
[2019-01-26] MEDS: metFORMIN 500 MG TAB PO SCH ×2 (08:11→17:05)
[2019-01-26] MEDS: PANTOPRAZOLE 40 MG TABLET PO SCH (08:11)
[2019-01-26] MEDS: DIVALPROEX ER 500 MG TAB.ER.24H PO SCH ×2 (08:11→20:26)
[2019-01-26] MEDS: NICOTINE 14MG/24HR PATCH TRANSDERM SCH (08:11)
[2019-01-26] MEDS: LIPASE 5,000/PROTEASE 17,000/AMYLASE 24,000 PO SCH ×3 (08:12→20:35)
--- NOTE | 2019-01-26 08:48 | P.PN ---
Progress Note - Text Interval history: The patient is found in the hallway she follows me to an interview room. She states that her mood is "great". She indicates that she slept last night staff reported she slept 2 hours. She has no questions or concerns regarding her medications. She indicates that she is eating and she feels she is gaining some weight back. She has been participating in groups. She states that she became verbally agitated with a male peer yesterday after he made an inappropriate comment. Mental status exam: The patient is an alert female appearing older than her stated age. She is dressed in her own clothing. Hygiene grooming improving. Eye contact appropriate. She remained calm throughout the session. She continues to ask about being discharged every day. She reports no suicidal or homicidal ideation intent or plan. She denies having any racing thoughts. Thought process is slowly becoming more linear. She is reporting no auditory or visual hallucinations or specific delusions. Residual psychosis may persist. Insight and judgment limited. She demonstrates no verbal or physical aggressiveness. She demonstrates no involuntary repetitive movements. Plan: We will obtain a Depakote level and liver enzymes in the morning. We will be titrating the Seroquel back to 300 mg at bedtime. Continue to monitor her for safety and encourage participation in the milieu. I will confer with staff regarding her behavior on the mental health unit. Vital signs reviewed. She requires continued psychiatric hospitalization.
[2019-01-26] MEDS: INSULIN ASPART (NovoLOG) 100 UNIT/ML VIAL SQ SCH ×4 (08:56→20:27)
[2019-01-26] MEDS ORDERED: BACITRACIN OINT 1 EACH PACKET TOPICAL ONE (09:03)
[2019-01-26] MEDS: IBUPROFEN 600 MG TAB PO PRN ×2 (11:09→21:11)
[2019-01-26 12:51] LABS: Glucose,Whole Blood 101 mg/dL (75-99)
[2019-01-26 17:03] LABS: Glucose,Whole Blood 219 mg/dL (75-99)
[2019-01-26 17:11] LABS: Appearance,Urine Clear (Clear); Bilirubin,Urine Negative (Negative); Blood,Urine Negative (Negative); Color,Urine Light Yellow; Glucose,Urine (UA) Negative (Negative); Ketones,Urine Trace (Negative); Leukocyte Esterase,Urine Negative (Negative); Nitrite,Urine Negative (Negative); Protein,Urine Negative (Negative); Specific Gravity,Urine 1.008 (1.001-1.035); Urobilinogen,Urine <2.0 mg/dL (<2.0)
[2019-01-26 20:03] LABS: Glucose,Whole Blood 293 mg/dL (75-99)
[2019-01-26] MEDS: QUEtiapine 100 MG TAB PO SCH (20:26)
[2019-01-26] MEDS: INSULIN DETEMIR (LEVEMIR) 100 UNIT/ML SYR SQ SCH (20:29)
[2019-01-27] MEDS: LORazepam 1 MG TAB PO PRN ×4 (02:44→20:56)
[2019-01-27] MEDS: IBUPROFEN 600 MG TAB PO PRN ×2 (02:45→20:57)
[2019-01-27 07:36] LABS: Glucose,Whole Blood 136 mg/dL (75-99)
[2019-01-27] MEDS: LIPASE 5,000/PROTEASE 17,000/AMYLASE 24,000 PO SCH ×3 (07:39→20:56)
[2019-01-27] MEDS: metFORMIN 500 MG TAB PO SCH ×2 (07:39→17:36)
[2019-01-27] MEDS: CYANOCOBALAMIN 500 MCG TAB PO SCH (07:39)
[2019-01-27] MEDS: PANTOPRAZOLE 40 MG TABLET PO SCH (07:39)
[2019-01-27] MEDS: DIVALPROEX ER 500 MG TAB.ER.24H PO SCH ×3 (07:40→20:56)
[2019-01-27] MEDS: GABAPENTIN 100 MG CAP PO SCH ×2 (07:40→20:56)
[2019-01-27] MEDS: NICOTINE 14MG/24HR PATCH TRANSDERM SCH (07:46)
[2019-01-27] MEDS: INSULIN ASPART (NovoLOG) 100 UNIT/ML VIAL SQ SCH ×4 (07:46→20:13)
[2019-01-27] MEDS ORDERED: ERGOCALCIFEROL 50,000 UNIT CAP PO SCH (09:00)
--- NOTE | 2019-01-27 09:54 | P.PN ---
Progress Note - Text Interval history: The patient is found in the hallway she follows me to an interview room. She indicates she is doing great. She reports she slept 7 hours staff reported she slept for. Appetite stable. We reviewed her psychotropic medication and her questions were answered. We are awaiting the Depakote level. She states that she had a visit from her sister and that went well. She is agreeable to having us contact her sister regarding that visit. The patient states that she intends on returning to her apartment. Mental status exam: The patient is alert she is dressed in her own clothing she is covered in a blanket as well. Eye contact is appropriate speech is fluent spontaneous nonpressured. She is very focused on being discharged. She denies having any suicidal or homicidal thoughts she denies having any auditory or visual hallucinations. She endorses no specific delusions although some residual symptoms of psychosis may persist. She has been doing much better in terms of controlling her agitation. She demonstrated no verbal or physical aggressive during this session. She demonstrates no involuntary repetitive movements. Affect is less labile. Plan: Improving symptoms of juan and psychosis, we will continue her current medications. We will consider titrating Depakote further if needed. She is enc ouraged to continue participating in the milieu. Social work will be asked to contact the patient's sister regarding the visit last night to see if the patient has approximated baseline. We will continue to monitor the patient for safety. Vital signs reviewed they're within normal limits.
[2019-01-27 09:57] LABS: Urine Alcohol Negative (Negative); Urine Barbiturate Negative (Negative); Urine Cocaine Negative (Negative); Urine Methadone Negative (Negative); Urine Opiates Negative (Negative); Urine Phencyclidine Negative (Negative)
[2019-01-27] MEDS: ACETAMINOPHEN TAB 325 MG TAB PO PRN ×2 (11:10→22:55)
[2019-01-27] MEDS: BACITRACIN 500 UNIT/GM OINT 28.4 GM TUBE TOPICAL SCH ×2 (12:36→21:02)
[2019-01-27 12:41] LABS: Glucose,Whole Blood 165 mg/dL (75-99)
[2019-01-27] MEDS: HALOPERIDOL LACTATE 5 MG/ML 1 ML VIAL IM PRN (14:24)
[2019-01-27 17:32] LABS: Glucose,Whole Blood 189 mg/dL (75-99)
[2019-01-27 18:13] LABS: Amylase 54 U/L (30-110)
[2019-01-27 20:07] LABS: Glucose,Whole Blood 196 mg/dL (75-99)
[2019-01-27] MEDS: INSULIN DETEMIR (LEVEMIR) 100 UNIT/ML SYR SQ SCH (20:14)
[2019-01-27] MEDS: QUEtiapine 100 MG TAB PO SCH (20:56)
[2019-01-27 22:18] VITALS: RESP 16
[2019-01-28] MEDS: ACETAMINOPHEN TAB 325 MG TAB PO PRN (06:03)
[2019-01-28 06:31] VITALS: BP 118/75; PULSE 95; TEMP 97.4
[2019-01-28] MEDS: INSULIN ASPART (NovoLOG) 100 UNIT/ML VIAL SQ SCH ×2 (07:36→12:44)
[2019-01-28] MEDS: PANTOPRAZOLE 40 MG TABLET PO SCH (07:38)
[2019-01-28] MEDS: metFORMIN 500 MG TAB PO SCH (07:39)
[2019-01-28 07:52] LABS: Glucose,Whole Blood 125 mg/dL (75-99)
[2019-01-28] MEDS: CYANOCOBALAMIN 500 MCG TAB PO SCH (08:59)
[2019-01-28] MEDS: BACITRACIN 500 UNIT/GM OINT 28.4 GM TUBE TOPICAL SCH (08:59)
[2019-01-28] MEDS: LIPASE 5,000/PROTEASE 17,000/AMYLASE 24,000 PO SCH (09:00)
[2019-01-28] MEDS: NICOTINE 14MG/24HR PATCH TRANSDERM SCH (09:01)
[2019-01-28] MEDS: GABAPENTIN 100 MG CAP PO SCH (09:01)
[2019-01-28] MEDS: DIVALPROEX ER 500 MG TAB.ER.24H PO SCH (09:01)
--- NOTE | 2019-01-28 09:48 | P.DS ---
Providers Date of admission: 01/21/19 12:42 Expected date of discharge: 01/28/19 Attending physician: Montana Hicks Consults: 01/21/19 13:14 Consult Physician Routine Consulting Provider: Mark Anthony Mack Consult Reason/Comments: H&P and medical Do you want consulting provider notified?: Yes Primary care physician: Cecilia Cortez - Discharge Diagnosis(es) (1) Severe manic bipolar 1 disorder with psychotic behavior Current Visit: Yes Status: Acute Priority: High (2) Alcohol use disorder, moderate, in sustained remission Current Visit: Yes Status: Acute Priority: Low (3) Cannabis use disorder, mild, abuse Current Visit: Yes Status: Acute Priority: Medium (4) Cocaine use disorder, severe, in sustained remission Current Visit: Yes Status: Acute Priority: Low (5) Methamphetamine use disorder, moderate, in early remission Current Visit: Yes Status: Acute Priority: Medium Hospital Course: Brief summary of admission note: This patient is a 58-year-old single female who was admitted to the mental health unit from the halfway. The patient was petitioned at the halfway stating the patient was demonstrating bizarre behavior. She had been urinating on the floor. She was noted to have balled up her feces. She appeared to be hallucinating. Upon presentation to the hospital she states that she had not been sleeping for an extended period of time appetite was poor. She described having racing thoughts confusion her affect was labile. For full details please refer to my psychiatric evaluation dated 01/22/2019. Summary of hospital course: The patient was admitted to the mental health unit on a petition and clinical certificate. A second clinical certificate was com pleted. Upon meeting with her oracle reports developer she decided to defer a court hearing. She was started on Depakote ER 500 mg twice daily Seroquel was continued initially at 200 mg at bedtime and this was titrated back to 300 mg at bedtime. The patient demonstrated progressive improvement of symptoms while here. She did receive some injections for agitated behavior initially into the hospitalization. The agitation subsided. Her thought process has become more linear with each passing day while hospitalized. She has been tolerating the medication without reported side effects. He was seen by internal medicine for routine history and physical exam. Social workers met with the patient to complete a psychosocial assessment and for discharge planning purposes. The patient had no interest in participating in inpatient chemical dependency treatment. She is on a halfway hold as well so she needs to return there upon discharge from this hospitalization. Mental status exam: The patient is alert she is dressed in her own clothing hygiene is adequate. She is pleasant and cooperative. She reports her mood is good. Affect is congruent and appropriately expressive. She is oriented to person place and date. She is able to demonstrate spontaneous future oriented thinking. She reports no suicidal or homicidal ideation intent or plan. She is reporting no auditory or visual hallucinations or any specific delusions. There is no observed evidence of psychosis at this time. Thought process is free of any tangential thinking loose associations or flight of ideas. She does not appear hypomanic or manic currently. She demonstrates no verbal or physical aggressiveness. She is demonstrating no involuntary repetitive movements. Insight and judgment have improved. Impressions 1. Bipolar 1 disorder most recent manic with psychosis, cannabis use disorder, alcohol use disorder in reported sustained remission, rule out cocaine methamphetamine and opiate use disorders 2. Diabetes Plan: The patient will be discharged from mental health unit today. She continues to be on a halfway hold and will be transported to halfway upon discharge. We will continue her on Depakote ER 500 mg twice daily Seroquel 300 mg at bedtime. She will be followed by [facility] for outpatient psychiatric services. She is not interested in inpatient chemical dependency treatment. She is instructed to abstain from any use of alcohol marijuana or illicit drugs as these will precipitate symptoms of psychosis and markedly elevated for safety risk. At this time she is appropriate for transition to outpatient care. She is instructed to return to hospital if any acute safety concerns. Patient Condition at Discharge: Stable Plan - Discharge Summary New Discharge Prescriptions: New Divalproex ER [Depakote ER] 500 mg PO BID #60 tab.er.24h Nicotine 14Mg/24Hr Patch [Habitrol] 1 patch TRANSDERM DAILY #14 patch Gabapentin [Neurontin] 100 mg PO BID #60 cap Continue metFORMIN HCL [Glucophage] 500 mg PO BID Insulin Glargine,Hum.rec.anlog [Basaglar Kwikpen U-100] 30 unit SQ HS Omeprazole 20 mg PO DAILY Lipase/Protease/Amylase [Zenpep Dr 25,000 Unit Capsule] 4 cap PO TID Ergocalciferol [Vitamin D2 (DRISDOL)] 50,000 unit PO Q7D Cyanocobalamin (Vitamin B-12) [Vitamin B-12] 5,000 mcg PO DAILY INSULIN ASPART (NovoLOG) [NovoLOG (formulary)] See Protocol SQ AC-TID QUEtiapine FUMARATE [SEROquel] 300 mg PO HS #30 tablet Discontinued Cyclobenzaprine HCl 5 mg PO TID hydrOXYzine PAMOATE [Vistaril] 25 mg PO DAILY Gabapentin [Neurontin] 300 mg PO TID OXcarbazepine [Trileptal] 600 mg PO BID Discharge Medication List metFORMIN HCL [Glucophage] 500 mg PO BID 05/04/17 [History] Insulin Glargine,Hum.rec.anlog [Basaglar Kwikpen U-100] 30 unit SQ HS 12/13/17 [History] Omeprazole 20 mg PO DAILY 04/05/18 [History] Cyanocobalamin (Vitamin B-12) [Vitamin B-12] 5,000 mcg PO DAILY 01/21/19 [History] Ergocalciferol [Vitamin D2 (DRISDOL)] 50,000 unit PO Q7D 01/21/19 [History] INSULIN ASPART (NovoLOG) [NovoLOG (formulary)] See Protocol SQ AC-TID 01/21/19 [History] Lipase/Protease/Amylase [Zenpep Dr 25,000 Unit Capsule] 4 cap PO TID 01/21/19 [History] Divalproex ER [Depakote ER] 500 mg PO BID #60 tab.er.24h 01/28/19 [Rx] Gabapentin [Neurontin] 100 mg PO BID #60 cap 01/28/19 [Rx] Nicotine 14Mg/24Hr Patch [Habitrol] 1 patch TRANSDERM DAILY #14 patch 01/28/19 [Rx] QUEtiapine FUMARATE [SEROquel] 300 mg PO HS #30 tablet 01/28/19 [Rx] Follow up Appointment(s)/Referral(s): Cecilia Cortez MD [Primary Care Provider] - 1-2 days Patient Instructions/Handouts: How to Stop Smoking (DC) Activity/Diet/Wound Care/Special Instructions: Activity and diet as tolerated. No guns or weapons in the home. Refrain from drugs or alcohol not prescribed by your physician. Take all your medications as prescribed, and attend all follow up appointments as scheduled. If in need of refills for medications, please go to your out patient psychiatric provider, or your primary care physician. If in crisis, call or please go to the nearest ER for evaluation.
[2019-01-28] MEDS: IBUPROFEN 600 MG TAB PO PRN (10:46)
[2019-01-28] MEDS: LORazepam 1 MG TAB PO PRN (10:46)
[2019-01-28 12:42] LABS: Glucose,Whole Blood 136 mg/dL (75-99)
== END 2019-01-28 13:07 | DRG 885 ==
LOC: EC 08:33 → 3MHU 12:42
PROVIDERS: ADMIT Psychiatry & Neurology Psychiatry; ATTEND Psychiatry & Neurology Psychiatry
DX: F31.2 Bipolar disorder, current episode manic severe with psychotic features (principal); R45.851 Suicidal ideations; K86.1 Other chronic pancreatitis; R45.850 Homicidal ideations; F10.21 Alcohol dependence, in remission; E78.5 Hyperlipidemia, unspecified; F12.11 Cannabis abuse, in remission; F14.11 Cocaine abuse, in remission; F15.11 Other stimulant abuse, in remission; Z87.440 Personal history of urinary (tract) infections; Z86.010 Personal history of colon polyps; Z85.21 Personal history of malignant neoplasm of larynx; F17.210 Nicotine dependence, cigarettes, uncomplicated; F43.10 Post-traumatic stress disorder, unspecified; J42 Unspecified chronic bronchitis; K21.9 Gastro-esophageal reflux disease without esophagitis; Z79.899 Other long term (current) drug therapy; Z82.49 Family history of ischemic heart disease and other diseases of the circulatory system; Z86.73 Personal history of transient ischemic attack (TIA), and cerebral infarction without residual deficits; Z81.3 Family history of other psychoactive substance abuse and dependence; Z79.4 Long term (current) use of insulin; E11.22 Type 2 diabetes mellitus with diabetic chronic kidney disease; N18.3 Chronic kidney disease, stage 3 (moderate); E11.40 Type 2 diabetes mellitus with diabetic neuropathy, unspecified
CPT/HCPCS: 36415; 80053; 80061; 80164; 80306; 80320; 81003; 82150; 83036; 83690; 84443; 84450; 84460; 85025; 96372; 99285

== ENCOUNTER 2019-01-31 19:46 | Emergency (ER) | payer OTHER ==
[2019-01-31 19:56] VITALS: BP 134/89; PULSE 91; RESP 18; TEMP 98.1
[2019-01-31] MEDS ORDERED: ACETAMINOPHEN TAB 500 MG TAB PO STA (20:13)
--- NOTE | 2019-01-31 20:15 | ED ---
General Adult HPI - General Chief complaint: Psychiatric Symptoms Stated complaint: Mental health Time Seen by Provider: 01/31/19 19:58 Source: patient, police Mode of arrival: ambulatory Limitations: no limitations - History of Present Illness Initial comments: Dictation was produced using [employer] dictation software. please excuse any grammatical, word or spelling errors. Chief Complaint: 58-year-old female with past clinical history of bipolar disease presents with agitation. History of Present Illness: She is 58-year-old female she was brought in by law enforcement. Patient was allegedly throwing furniture out of her window. Enforcement arrived on scene and brought patient to the emergency department. When questioned about why she is starting out furniture she states that she was cleaning the mess left in her house by a individual named Brad Rodriguez who supposedly his family. Patient denies any suicidal or homicidal ideation. Denies any visual or auditory hallucinations. The ROS documented in this emergency department record has been reviewed and confirmed by me. Those systems with pertinent positive or negative responses have been documented in the HPI. All other systems are other negative and/or noncontributory. PHYSICAL EXAM: General Impression: Alert and oriented x3, not in acute distress HEENT: Normocephalic atraumatic, extra-ocular movements intact, pupils equal and reactive to light bilaterally, mucous membranes moist. Cardiovascular: Heart regular rate and rhythm, S1&S2 audible, no murmurs, rubs or gallops Chest: Lungs clear to auscultation bilaterally, no rhonchi, no wheeze, no rales Abdomen: Bowel sounds present, abdomen soft, non-tender, non-distended, no organomegaly Musculoskeletal: Pulses present and equal in all extremities, no peripheral edema Motor: no focal deficits noted Neurological: CN II-XII grossly intact, no focal motor or sensory deficits noted Skin: Intact with no visualized rashes Psych: Normal affect and mood ED course: 58-year-old female presents with aggressive behavior. She has no medical complaints at this time. Physical examination is benign. Signs upon arrival are within acceptable limits. Breath alcohol test is negative. Patient medically cleared for EPS evaluation. Chart review shows that patient was recently discharged from our facility for psychiatric disease.Patient was found by EPS and clear for discharge. Patient reevaluated. She is calm and collected. She does not appear agitated. She does not show any signs of psyc hosis. Patient must follow up with outpatient psychiatry. - Related Data Home Medications Medication Instructions Recorded Confirmed metFORMIN HCL [Glucophage] 500 mg PO BID 05/04/17 01/31/19 Insulin Glargine,Hum.rec.anlog 30 unit SQ HS 12/13/17 01/31/19 [Basaglar Kwikpen U-100] Omeprazole 20 mg PO DAILY 04/05/18 01/31/19 Cyanocobalamin (Vitamin B-12) 5,000 mcg PO DAILY 01/21/19 01/31/19 [Vitamin B-12] Ergocalciferol [Vitamin D2 50,000 unit PO Q7D 01/21/19 01/31/19 (DRISDOL)] INSULIN ASPART (NovoLOG) [NovoLOG See Protocol SQ AC-TID 01/21/19 01/31/19 (formulary)] Lipase/Protease/Amylase [Zenpep Dr 4 cap PO TID 01/21/19 01/31/19 25,000 Unit Capsule] Previous Rx's Medication Instructions Recorded Divalproex ER [Depakote ER] 500 mg PO BID #60 tab.er.24h 01/28/19 Gabapentin [Neurontin] 100 mg PO BID #60 cap 01/28/19 Nicotine 14Mg/24Hr Patch [Habitrol] 1 patch TRANSDERM DAILY #14 patch 01/28/19 QUEtiapine FUMARATE [SEROquel] 300 mg PO HS #30 tablet 01/28/19 Allergies Allergy/AdvReac Type Severity Reaction Status Date / Time No Known Allergies Allergy Verified 01/31/19 20:05 Review of Systems ROS Statement: Those systems with pertinent positive or pertinent negative responses have been documented in the HPI. ROS Other: All systems not noted in ROS Statement are negative. Past Medical History Past Medical History: Cancer, CVA/TIA, Diabetes Mellitus, GERD/Reflux, Hyperlipidemia, Renal Disease Additional Past Medical History / Comment(s): Chronic pancreatitis,wt loss of 60-70 pounds over last year, HEART MURMUR AND ENLARGED AORTA, tia's, colon polyps-benign, "blood pressure tends to run low ended up in ICU" pt states recent UTI treated,merle neuropathy,throat CA at age 6,chronic bronchitis History of Any Multi-Drug Resistant Organisms: MRSA Date of last positivie culture/infection: 2016 MDRO Source:: face Past Surgical History: Appendectomy Additional Past Surgical History / Comment(s): CYST REMOVED FROM NECK. RT 3RD/4TH FINGER PARTIAL AMP D/T INJURY, lt ureter stent. COLONOSCOPY/POLYPECTOMY Past Anesthesia/Blood Transfusion Reactions: Motion Sickness, Postoperative Nausea & Vomiting (PONV) Past Psychological History: Anxiety, Bipolar, Depression, PTSD, Schizophrenia Smoking Status: Current every day smoker - Past Family History Father Family Medical History: Liver Disease Additional Family Medical History / Comment(s): Father at age 78 from cirrhosis of the liver. Mother Additional Family Medical History / Comment(s): Mother is alive in her 80s Sister(s) Family Medical History: Coronary Artery Disease (CAD) Additional Family Medical History / Comment(s): Patient has 2 sisters and one has from an overdose. She has 1 brother with no major medical problems. 4cm aortic aneurysm General Exam Limitations: no limitations Course Vital Signs 01/31/19 19:52 Temperature 98.1 F Pulse Rate 91 Respiratory 18 Rate Blood Pressure 134/89 O2 Sat by Pulse 198 H Oximetry Disposition Clinical Impression: Agitation Disposition: HOME SELF-CARE Condition: Good Instructions (If sedation given, give patient instructions): Conduct Disorder (ED) Is patient prescribed a controlled substance at d/c from ED?: No Referrals: Cecilia Cortez MD [Primary Care Provider] - 1-2 days Time of Disposition: 21:24
== END 2019-01-31 21:45 | disposition home or self-care (01) ==
LOC: EC 19:46
DX: R45.1 Restlessness and agitation (principal); F17.200 Nicotine dependence, unspecified, uncomplicated; E11.40 Type 2 diabetes mellitus with diabetic neuropathy, unspecified; K21.9 Gastro-esophageal reflux disease without esophagitis; E78.5 Hyperlipidemia, unspecified; K86.1 Other chronic pancreatitis; Z79.4 Long term (current) use of insulin; Z79.899 Other long term (current) drug therapy; Z85.818 Personal history of malignant neoplasm of other sites of lip, oral cavity, and pharynx; Z86.14 Personal history of Methicillin resistant Staphylococcus aureus infection; Z86.59 Personal history of other mental and behavioral disorders
CPT/HCPCS: 82075; 99285

== ENCOUNTER 2019-02-07 11:40 | Inpatient (IN) | payer MEDICAID, OTHER ==
--- NOTE | 2019-02-07 12:05 | ED ---
Psych HPI - General Chief Complaint: Psychiatric Symptoms Stated Complaint: Petition Time Seen by Provider: 02/07/19 11:51 Source: patient, RN notes reviewed, old records reviewed Mode of arrival: ambulatory - History of Present Illness Initial Comments: This is a 58-year-old female the ER for evaluation, this patient presents today for evaluation regarding mental health today by PD petitioning for psychiatric evaluation. Patient states family called. States patient is not acting appropriately. Both agitated and uncooperative. Denying drugs or alcohol abuse MD Complaint: altered mental status -: unknown Associated Psychiatric Symptoms: racing thoughts, auditory hallucinations, delusions History of same: Yes Quality: getting worse Improves With: none Worsens With: none Associated Symptoms: denies other symptoms Treatments Prior to Arrival: placed on mental health hold - Related Data Home Medications Medication Instructions Recorded Confirmed metFORMIN HCL [Glucophage] 500 mg PO BID 05/04/17 02/07/19 Insulin Glargine,Hum.rec.anlog 30 unit SQ HS 12/13/17 02/07/19 [Basaglar Kwikpen U-100] Omeprazole 20 mg PO DAILY 04/05/18 02/07/19 Cyanocobalamin (Vitamin B-12) 5,000 mcg PO DAILY 01/21/19 02/07/19 [Vitamin B-12] Ergocalciferol [Vitamin D2 50,000 unit PO Q7D 01/21/19 02/07/19 (DRISDOL)] INSULIN ASPART (NovoLOG) [NovoLOG See Protocol SQ AC-TID 01/21/19 02/07/19 (formulary)] Lipase/Protease/Amylase [Zenpep Dr 4 cap PO TID 01/21/19 02/07/19 25,000 Unit Capsule] Previous Rx's Medication Instructions Recorded Divalproex ER [Depakote ER] 500 mg PO BID #60 tab.er.24h 01/28/19 Gabapentin [Neurontin] 100 mg PO BID #60 cap 01/28/19 Nicotine 14Mg/24Hr Patch [Habitrol] 1 patch TRANSDERM DAILY #14 patch 01/28/19 QUEtiapine FUMARATE [SEROquel] 300 mg PO HS #30 tablet 01/28/19 Allergies Allergy/AdvReac Type Severity Reaction Status Date / Time No Known Allergies Allergy Verified 02/07/19 11:53 Review of Systems ROS Statement: Those systems with pertinent positive or pertinent negative responses have been documented in the HPI. ROS Other: All systems not noted in ROS Statement are negative. 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 RT 3RD/4TH FINGER PARTIAL AMP D/T INJURY, lt ureter stent. COLONOSCOPY/POLYPECTOMY Past Anesthesia/Blood Transfusion Reactions: Motion Sickness, Postoperative Nausea & Vomiting (PONV) Past Psychological History: Anxiety, Bipolar, Depression, PTSD, Schizophrenia Smoking Status: Current every day smoker - Past Family History Father Family Medical History: Liver Disease Additional Family Medical History / Comment(s): Father at age 78 from cirrhosis of the liver. Mother Additional Family Medical History / Comment(s): Mother is alive in her 80s Sister(s) Family Medical History: Coronary Artery Disease (CAD) Additional Family Medical History / Comment(s): Patient has 2 sisters and one has from an overdose. She has 1 brother with no major medical problems. 4cm aortic aneurysm General Exam Limitations: no limitations General appearance: alert, in no apparent distress Head exam: Present: atraumatic, normocephalic, normal inspection Eye exam: Present: normal appearance, PERRL, EOMI. Absent: scleral icterus, conjunctival injection, periorbital swelling ENT exam: Present: normal exam, mucous membranes moist Neck exam: Present: normal inspection. Absent: tenderness, meningismus, lymphadenopathy Respiratory exam: Present: normal lung sounds bilaterally. Absent: respiratory distress, wheezes, rales, rhonchi, stridor Cardiovascular Exam: Present: regular rate, normal rhythm, normal heart sounds. Absent: systolic murmur, diastolic murmur, rubs, gallop, clicks GI/Abdominal exam: Present: soft, normal bowel sounds. Absent: distended, tenderness, guarding, rebound, rigid Extremities exam: Present: normal inspection, full ROM, normal capillary refill. Absent: tenderness, pedal edema, joint swelling, calf tenderness Back exam: Present: normal inspection Neurological exam: Present: alert, oriented X3, CN II-XII intact Psychiatric exam: Present: normal affect, normal mood Skin exam: Present: warm, dry, intact, normal color. Absent: rash Course Vital Signs 02/07/19 11:43 Temperature 98 F Pulse Rate 85 Respiratory 16 Rate Blood Pressure 139/88 O2 Sat by Pulse 99 Oximetry - Reevaluation(s) Reevaluation #1: 02/07/19 12:05 Medical clear for psychiatric evaluation Medical Decision Making - Medical Decision Making 58 female the ER for evaluation seen evaluated by psychiatry in the ER, we'll tr madeleine for inpatient psychiatric evaluation and treatment - Lab Data Result diagrams: 02/07/19 14:09 02/07/19 14:09 Lab Results 02/07/19 02/07/19 02/07/19 Range/Units 14:00 14:00 14:09 WBC 8.0 (3.8-10.6) k/uL RBC 4.07 (3.80-5.40) m/uL Hgb 12.5 (11.4-16.0) gm/dL Hct 38.6 (34.0-46.0) % MCV 94.8 (80.0-100.0) fL MCH 30.8 (25.0-35.0) pg MCHC 32.5 (31.0-37.0) g/dL RDW 13.2 (11.5-15.5) % Plt Count 306 (150-450) k/uL Neutrophils % 58 % Lymphocytes % 34 % Monocytes % 4 % Eosinophils % 1 % Basophils % 1 % Neutrophils # 4.6 (1.3-7.7) k/uL Lymphocytes # 2.7 (1.0-4.8) k/uL Monocytes # 0.3 (0-1.0) k/uL Eosinophils # 0.1 (0-0.7) k/uL Basophils # 0.1 (0-0.2) k/uL Sodium (137-145) mmol/L Potassium (3.5-5.1) mmol/L Chloride (98-107) mmol/L Carbon Dioxide (22-30) mmol/L Anion Gap mmol/L BUN (7-17) mg/dL Creatinine (0.52-1.04) mg/dL Est GFR (CKD-EPI)AfAm (>60 ml/min/1.73 sqM) Est GFR (CKD-EPI)NonAf (>60 ml/min/1.73 sqM) Glucose (74-99) mg/dL Calcium (8.4-10.2) mg/dL Total Bilirubin (0.2-1.3) mg/dL AST (14-36) U/L ALT (9-52) U/L Alkaline Phosphatase (38-126) U/L Total Protein (6.3-8.2) g/dL Albumin (3.5-5.0) g/dL Urine Color Light Yellow Urine Appearance Cloudy H (Clear) Urine pH 7.0 (5.0-8.0) Ur Specific [place] 1.019 (1.001-1.035) Urine Protein Negative (Negative) Urine Glucose (UA) 4+ H (Negative) Urine Ketones Negative (Negative) Urine Blood Moderate H (Negative) Urine Nitrite Negative (Negative) Urine Bilirubin Negative (Negative) Urine Urobilinogen <2.0 (<2.0) mg/dL Ur Leukocyte Esterase Large H (Negative) Urine RBC 33 H (0-5) /hpf Urine WBC 15 H (0-5) /hpf Ur Squamous Epith Cells 18 H (0-4) /hpf Urine Bacteria Moderate H (None) /hpf Urine Opiates Screen Not Detected (NotDetected) Ur Oxycodone Screen Not Detected (NotDetected) Urine Methadone Screen Not Detected (NotDetected) Ur Propoxyphene Screen Not Detected (NotDetected) Ur Barbiturates Screen Not Detected (NotDetected) U Tricyclic Antidepress Not Detected (NotDetected) Ur Phencyclidine Scrn Not Detected (NotDetected) Ur Amphetamines Screen Not Detected (NotDetected) U Methamphetamines Scrn Not Detected (NotDetected) U Benzodiazepines Scrn Not Detected (NotDetected) Urine Cocaine Screen Not Detected (NotDetected) U Marijuana (THC) Screen Not Detected (NotDetected) 02/07/19 Range/Units 14:09 WBC (3.8-10.6) k/uL RBC (3.80-5.40) m/uL Hgb (11.4-16.0) gm/dL Hct (34.0-46.0) % MCV (80.0-100.0) fL MCH (25.0-35.0) pg MCHC (31.0-37.0) g/dL RDW (11.5-15.5) % Plt Count (150-450) k/uL Neutrophils % % Lymphocytes % % Monocytes % % Eosinophils % % Basophils % % Neutrophils # (1.3-7.7) k/uL Lymphocytes # (1.0-4.8) k/uL Monocytes # (0-1.0) k/uL Eosinophils # (0-0.7) k/uL Basophils # (0-0.2) k/uL Sodium 136 L (137-145) mmol/L Potassium 4.2 (3.5-5.1) mmol/L Chloride 102 (98-107) mmol/L Carbon Dioxide 29 (22-30) mmol/L Anion Gap 5 mmol/L BUN 12 (7-17) mg/dL Creatinine 0.52 (0.52-1.04) mg/dL Est GFR (CKD-EPI)AfAm >90 (>60 ml/min/1.73 sqM) Est GFR (CKD-EPI)NonAf >90 (>60 ml/min/1.73 sqM) Glucose 295 H (74-99) mg/dL Calcium 9.3 (8.4-10.2) mg/dL Total Bilirubin 0.2 (0.2-1.3) mg/dL AST 15 (14-36) U/L ALT 21 (9-52) U/L Alkaline Phosphatase 61 (38-126) U/L Total Protein 6.8 (6.3-8.2) g/dL Albumin 4.1 (3.5-5.0) g/dL Urine Color Urine Appearance (Clear) Urine pH (5.0-8.0) Ur Specific [place] (1.001-1.035) Urine Protein (Negative) Urine Glucose (UA) (Negative) Urine Ketones (Negative) Urine Blood (Negative) Urine Nitrite (Negative) Urine Bilirubin (Negative) Urine Urobilinogen (<2.0) mg/dL Ur Leukocyte Esterase (Negative) Urine RBC (0-5) /hpf Urine WBC (0-5) /hpf Ur Squamous Epith Cells (0-4) /hpf Urine Bacteria (None) /hpf Urine Opiates Screen (NotDetected) Ur Oxycodone Screen (NotDetected) Urine Methadone Screen (NotDetected) Ur Propoxyphene Screen (NotDetected) Ur Barbiturates Screen (NotDetected) U Tricyclic Antidepress (NotDetected) Ur Phencyclidine Scrn (NotDetected) Ur Amphetamines Screen (NotDetected) U Methamphetamines Scrn (NotDetected) U Benzodiazepines Scrn (NotDetected) Urine Cocaine Screen (NotDetected) U Marijuana (THC) Screen (NotDetected) Disposition Clinical Impression: Bipolar disorder, Acute psychosis Disposition: TRANSFER TO PSYCH HOSP/UNIT Condition: Fair Is patient prescribed a controlled substance at d/c from ED?: No Referrals: Vivian Archuleta FNPBC [REFERRING] - 1-2 days
[2019-02-07 14:15] LABS: Basophils # (A) 0.1 k/uL (0-0.2); Basophils % (A) 1 %; Eosinophils # (A) 0.1 k/uL (0-0.7); Eosinophils % (A) 1 %; HCT 38.6 % (34.0-46.0); HGB 12.5 gm/dL (11.4-16.0); Lymphocytes # (A) 2.7 k/uL (1.0-4.8); Lymphocytes % (A) 34 %; MCH 30.8 pg (25.0-35.0); MCHC 32.5 g/dL (31.0-37.0); MCV 94.8 fL (80.0-100.0); Mean Platelet Volume 7.5; Monocytes # (A) 0.3 k/uL (0-1.0); Monocytes % (A) 4 %; Neutrophils # (A) 4.6 k/uL (1.3-7.7); Neutrophils % (A) 58 %; Platelet Count 306 k/uL (150-450); RBC 4.07 m/uL (3.80-5.40); RDW 13.2 % (11.5-15.5)
[2019-02-07 14:24] LABS: Appearance,Urine Cloudy (Clear); Bacteria,Urine Moderate /hpf; Bilirubin,Urine Negative (Negative); Blood,Urine Moderate (Negative); Color,Urine Light Yellow; Glucose,Urine (UA) 4+ (Negative); Ketones,Urine Negative (Negative); Leukocyte Esterase,Urine Large (Negative); Nitrite,Urine Negative (Negative); Protein,Urine Negative (Negative); RBC,Urine 33 /hpf (0-5); Specific Gravity,Urine 1.019 (1.001-1.035); Squamous Epithelial Cell,Urine 18 /hpf (0-4); Urobilinogen,Urine <2.0 mg/dL (<2.0); WBC,Urine 15 /hpf (0-5)
[2019-02-07 14:25] LABS: Amphetamine Screen,Urine Not Detected (NotDetected); Barbiturate Screen,Urine Not Detected (NotDetected); Benzodiazepines Screen,Urine Not Detected (NotDetected); Cocaine Screen,Urine Not Detected (NotDetected); Methadone Screen, Urine Not Detected (NotDetected); Opiate Screen,Urine Not Detected (NotDetected); Oxycodone Screen, Urine Not Detected (NotDetected); Phencyclidine Screen,Urine Not Detected (NotDetected); Tricyclic Antidepressant,Urine Not Detected (NotDetected); Urn Cannabinoid Scrn Not Detected (NotDetected)
[2019-02-07 14:30] LABS: ALT 21 U/L (9-52); AST 15 U/L (14-36); African American GFR (CKD) >90 (>60 ml/min/1.73 sqM); Albumin 4.1 g/dL (3.5-5.0); Alkaline Phosphatase 61 U/L (38-126); Anion Gap 5 mmol/L; Blood Urea Nitrogen 12 mg/dL (7-17); Calcium 9.3 mg/dL (8.4-10.2); Carbon Dioxide 29 mmol/L (22-30); Chloride 102 mmol/L (98-107); Glucose 295 mg/dL (74-99); Potassium 4.2 mmol/L (3.5-5.1); Sodium 136 mmol/L (137-145); Total Bilirubin 0.2 mg/dL (0.2-1.3); Total Protein 6.8 g/dL (6.3-8.2)
[2019-02-07] MEDS ORDERED: LORazepam 1 MG TAB PO STA (16:38)
[2019-02-07] MEDS ORDERED: oxyCODONE-APAP 5-325MG 1 EACH TAB PO STA (16:48)
[2019-02-08] MEDS ORDERED: oxyCODONE-APAP 5-325MG 1 EACH TAB PO STA (01:45)
[2019-02-08] MEDS ORDERED: ONDANSETRON ODT 4 MG TAB PO STA (01:46)
[2019-02-08 04:25] LABS: Glucose,Whole Blood 205 mg/dL (75-99)
[2019-02-08] MEDS: oxyCODONE-APAP 5-325MG 1 EACH TAB PO PRN ×4 (06:10→23:27)
[2019-02-08 12:37] LABS: Glucose,Whole Blood 425 mg/dL (75-99)
[2019-02-08] MEDS: INSULIN ASPART (NovoLOG) 100 UNIT/ML VIAL SQ SCH ×5 (13:12→22:31)
[2019-02-08 15:16] LABS: Glucose,Whole Blood 104 mg/dL (75-99)
[2019-02-08] MEDS: GABAPENTIN 100 MG CAP PO SCH ×2 (15:47→23:06)
[2019-02-08] MEDS: metFORMIN 500 MG TAB PO SCH ×2 (15:47→22:30)
[2019-02-08] MEDS: DIVALPROEX ER 500 MG TAB.ER.24H PO SCH ×2 (15:48→23:27)
[2019-02-08 17:50] LABS: Glucose,Whole Blood 183 mg/dL (75-99)
[2019-02-08 22:21] LABS: Glucose,Whole Blood 150 mg/dL (75-99)
[2019-02-08] MEDS: CEPHALEXIN 500 MG CAP PO SCH (22:30)
[2019-02-09] MEDS ORDERED: diphenhydrAMINE 25 MG CAP PO STA (02:26)
[2019-02-09] MEDS: LORazepam 1 MG TAB PO STA ×2 (02:30→14:47)
[2019-02-09] MEDS ORDERED: LORazepam 1 MG TAB PO STA ×3 (08:29→14:42)
[2019-02-09] MEDS: CEPHALEXIN 500 MG CAP PO SCH ×2 (08:40→21:31)
[2019-02-09] MEDS: oxyCODONE-APAP 5-325MG 1 EACH TAB PO PRN ×2 (08:40→18:51)
[2019-02-09 08:46] LABS: Glucose,Whole Blood 305 mg/dL (75-99)
[2019-02-09] MEDS: INSULIN ASPART (NovoLOG) 100 UNIT/ML VIAL SQ SCH ×4 (09:04→21:29)
[2019-02-09] MEDS: GABAPENTIN 100 MG CAP PO SCH ×2 (09:05→21:31)
[2019-02-09] MEDS: DIVALPROEX ER 500 MG TAB.ER.24H PO SCH ×2 (09:06→21:30)
[2019-02-09] MEDS: metFORMIN 500 MG TAB PO SCH ×2 (09:48→21:31)
[2019-02-09 14:12] LABS: Glucose,Whole Blood 182 mg/dL (75-99)
[2019-02-09] MEDS ORDERED: ALPRAZolam 1 MG TAB PO STA (18:37)
[2019-02-09 21:20] LABS: Glucose,Whole Blood 375 mg/dL (75-99)
[2019-02-10] MEDS ORDERED: LORazepam 1 MG TAB PO STA ×2 (01:15→11:44)
[2019-02-10] MEDS ORDERED: diphenhydrAMINE 25 MG CAP PO STA (01:16)
[2019-02-10] MEDS ORDERED: ZIPRASIDONE 20 MG VIAL IM STA (02:00)
[2019-02-10 08:41] LABS: Glucose,Whole Blood 200 mg/dL (75-99)
[2019-02-10] MEDS: oxyCODONE-APAP 5-325MG 1 EACH TAB PO PRN (08:53)
[2019-02-10] MEDS: INSULIN ASPART (NovoLOG) 100 UNIT/ML VIAL SQ SCH ×6 (08:54→20:25)
[2019-02-10] MEDS: DIVALPROEX ER 500 MG TAB.ER.24H PO SCH ×2 (09:18→20:03)
[2019-02-10] MEDS: CEPHALEXIN 500 MG CAP PO SCH ×5 (09:19→20:03)
[2019-02-10] MEDS: GABAPENTIN 100 MG CAP PO SCH ×2 (09:20→20:03)
[2019-02-10] MEDS: metFORMIN 500 MG TAB PO SCH ×2 (09:20→20:02)
[2019-02-10 11:57] LABS: Glucose,Whole Blood 219 mg/dL (75-99)
[2019-02-10] MEDS ORDERED: MAGNESIUM HYDROXIDE 2,400 MG/10 ML CUP PO PRN (14:28)
[2019-02-10] MEDS ORDERED: MAG HYDROX/AL HYDROX/SIMETH 30 ML CUP PO PRN (14:28)
[2019-02-10] MEDS ORDERED: LORazepam 2 MG/ML INJ IM PRN (14:29)
--- NOTE | 2019-02-10 14:58 | P.CONS ---
History of Present Illness - Reason for Consult Type 2 diabetes mellitus - History of Present Illness 58-year-old female was admitted to for juan and patient does have history of bipolar disorder. Patient denied any fever chills nausea vomiting abdominal pain patient does smoke 10 cigars per day which she cut down from 2 packs and not willing to give a completely. Review of Systems REVIEW OF SYSTEMS: CONSTITUTIONAL: No fever, no malaise, no fatigue. HEENT: No recent visual problems or hearing problems. Denied any sore throat. CARDIOVASCULAR: No chest pain, orthopnea, PND, no palpitations, no syncope. PULMONARY: No shortness of breath, no cough, no hemoptysis. GASTROINTESTINAL: No diarrhea, no nausea, no vomiting, no abdominal pain. Normoactive bowel sounds. NEUROLOGICAL: No headaches, no weakness, no numbness. HEMATOLOGICAL: Denies any bleeding or petechiae. GENITOURINARY: Denies any burning micturition, frequency, or urgency. MUSCULOSKELETAL/RHEUMATOLOGICAL: Denies any joint pain, swelling, or any muscle pain. ENDOCRINE: Denies any polyuria or polydipsia. The rest of the 14-point review of systems is negative. Past Medical History Past Medical History: Cancer, CVA/TIA, Diabetes Mellitus, GERD/Reflux, Hy perlipidemia, Renal Disease Additional Past Medical History / Comment(s): Chronic pancreatitis,wt loss of 60-70 pounds over last year, HEART MURMUR AND ENLARGED AORTA, tia's, colon polyps-benign, "blood pressure tends to run low ended up in ICU" pt states recent UTI treated,merle neuropathy,throat CA at age 6,chronic bronchitis History of Any Multi-Drug Resistant Organisms: MRSA Year Discovered:: 2016 MDRO Source:: face Past Surgical History: Appendectomy Additional Past Surgical History / Comment(s): CYST REMOVED FROM NECK. RT 3RD/4TH FINGER PARTIAL AMP D/T INJURY, lt ureter stent. COLONOSCOPY/POLYPECTOMY Past Anesthesia/Blood Transfusion Reactions: Motion Sickness, Postoperative Nausea & Vomiting (PONV) Past Psychological History: Anxiety, Bipolar, Depression, PTSD, Schizophrenia Smoking Status: Current every day smoker - Past Family History Father Family Medical History: Liver Disease Additional Family Medical History / Comment(s): Father at age 78 from cirrhosis of the liver. Mother Additional Family Medical History / Comment(s): Mother is alive in her 80s Sister(s) Family Medical History: Coronary Artery Disease (CAD) Additional Family Medical History / Comment(s): Patient has 2 sisters and one has from an overdose. She has 1 brother with no major medical problems. 4cm aortic aneurysm Medications and Allergies Home Medications Medication Instructions Recorded Confirmed Type metFORMIN HCL [Glucophage] 500 mg PO BID 05/04/17 02/07/19 History Insulin Glargine,Hum.rec.anlog 30 unit SQ HS 12/13/17 02/07/19 History [Basaglar Kwikpen U-100] Omeprazole 20 mg PO DAILY 04/05/18 02/07/19 History Cyanocobalamin (Vitamin B-12) 5,000 mcg PO DAILY 01/21/19 02/07/19 History [Vitamin B-12] Ergocalciferol [Vitamin D2 50,000 unit PO Q7D 01/21/19 02/07/19 History (DRISDOL)] INSULIN ASPART (NovoLOG) [NovoLOG See Protocol SQ AC-TID 01/21/19 02/07/19 History (formulary)] Lipase/Protease/Amylase [Zenpep Dr 4 cap PO TID 01/21/19 02/07/19 History 25,000 Unit Capsule] Divalproex ER [Depakote ER] 500 mg PO BID #60 tab.er.24h 01/28/19 02/07/19 Rx Gabapentin [Neurontin] 100 mg PO BID #60 cap 01/28/19 02/07/19 Rx Nicotine 14Mg/24Hr Patch [Habitrol] 1 patch TRANSDERM DAILY #14 patch 01/28/19 02/07/19 Rx QUEtiapine FUMARATE [SEROquel] 300 mg PO HS #30 tablet 01/28/19 02/07/19 Rx Allergies Allergy/AdvReac Type Severity Reaction Status Date / Time No Known Allergies Allergy Verified 02/07/19 11:53 Physical Exam Vitals: Vital Signs Temp Pulse Resp BP Pulse Ox 02/10/19 14:05 98.1 F 71 20 123/56 99 02/10/19 10:45 98.0 F 72 16 105/73 99 02/09/19 22:00 72 18 110/75 98 PHYSICAL EXAMINATION: GENERAL: The patient is alert and oriented x3, not in any acute distress. Well developed, well nourished. HEENT: Pupils are round and equally reacting to light. EOMI. No scleral icterus. No conjunctival pallor. Normocephalic, atraumatic. No pharyngeal erythema. No thyromegaly. CARDIOVASCULAR: S1 and S2 present. No murmurs, rubs, or gallops. PULMONARY: Chest is clear to auscultation, no wheezing or crackles. ABDOMEN: Soft, nontender, nondistended, normoactive bowel sounds. No palpable organomegaly. MUSCULOSKELETAL: No joint swelling or deformity. EXTREMITIES: No cyanosis, clubbing, or pedal edema. NEUROLOGICAL: Gross neurological examination did not reveal any focal deficits. SKIN: No rashes. Results CBC & Chem 7: 02/07/19 14:09 02/07/19 14:09 Labs: Abnormal Lab Results - Last 24 Hours (Table) 02/09/19 02/10/19 02/10/19 Range/Units 21:17 08:35 11:51 POC Glucose (mg/dL) 375 H 200 H 219 H (75-99) mg/dL Assessment and Plan Plan: -Type 2 diabetes mellitus: Patient blood sugars are uncontrolled and elevated, patient will be resumed on her home regimen with the 3 times a day before meals blood sugar checks and the titration of her regimen depending on the blood sugars here. -Hyperlipidemia -Hypertension -Nicotine abuse: Counseling was provided, counseling regarding marijuana use was provided as well -Bipolar with acute juan management as per primary service -Severity in the past For above-mentioned chronic medical problems patient will be resumed on appropriate home medications
[2019-02-10] MEDS: ERGOCALCIFEROL 50,000 UNIT CAP PO SCH (15:07)
[2019-02-10] MEDS: ZIPRASIDONE 20 MG VIAL IM PRN (16:08)
[2019-02-10 17:56] LABS: Glucose,Whole Blood 210 mg/dL (75-99)
[2019-02-10] MEDS: LIPASE 5,000/PROTEASE 17,000/AMYLASE 24,000 PO SCH (18:21)
[2019-02-10 19:59] LABS: Glucose,Whole Blood 241 mg/dL (75-99)
[2019-02-10] MEDS: QUEtiapine 100 MG TAB PO SCH ×2 (20:02)
[2019-02-10] MEDS: INSULIN DETEMIR (LEVEMIR) 100 UNIT/ML SYR SQ SCH (20:27)
[2019-02-10] MEDS: LORazepam 1 MG TAB PO PRN (23:05)
[2019-02-10] MEDS: ACETAMINOPHEN TAB 325 MG TAB PO PRN (23:06)
[2019-02-11] MEDS: ACETAMINOPHEN TAB 325 MG TAB PO PRN ×3 (04:12→16:23)
[2019-02-11 07:45] LABS: Glucose,Whole Blood 119 mg/dL (75-99)
[2019-02-11] MEDS: INSULIN ASPART (NovoLOG) 100 UNIT/ML VIAL SQ SCH ×4 (08:19→21:09)
[2019-02-11] MEDS: LIPASE 5,000/PROTEASE 17,000/AMYLASE 24,000 PO SCH ×3 (08:53→17:03)
[2019-02-11] MEDS: GABAPENTIN 100 MG CAP PO SCH ×2 (08:57→21:08)
[2019-02-11] MEDS: DIVALPROEX ER 500 MG TAB.ER.24H PO SCH ×2 (08:57→21:08)
[2019-02-11] MEDS: CEPHALEXIN 500 MG CAP PO SCH ×5 (08:57→21:57)
[2019-02-11] MEDS: PANTOPRAZOLE 40 MG TABLET PO SCH (08:57)
[2019-02-11] MEDS: metFORMIN 500 MG TAB PO SCH ×2 (08:57→21:06)
[2019-02-11] MEDS: CYANOCOBALAMIN 500 MCG TAB PO SCH (08:57)
--- NOTE | 2019-02-11 12:36 | P.HP ---
Psychiatric H&P - . H&P Date: 02/11/19 History & Physical: Allergies Allergy/AdvReac Type Severity Reaction Status Date / Time No Known Allergies Allergy Verified 02/07/19 11:53 Vital Signs Temp 97.4 F L 02/11/19 04:34 Pulse 83 02/11/19 08:45 Resp 16 02/11/19 08:45 BP 108/62 02/11/19 08:45 Pulse Ox 100 02/10/19 15:00 Intake & Output 02/10/19 02/11/19 02/11/19 18:59 06:59 18:59 Weight 57.2 kg Laboratory Last Values WBC 8.0 k/uL (3.8-10.6) 02/07/19 14:09 RBC 4.07 m/uL (3.80-5.40) 02/07/19 14:09 Hgb 12.5 gm/dL (11.4-16.0) 02/07/19 14:09 Hct 38.6 % (34.0-46.0) 02/07/19 14:09 MCV 94.8 fL (80.0-100.0) 02/07/19 14:09 MCH 30.8 pg (25.0-35.0) 02/07/19 14:09 MCHC 32.5 g/dL (31.0-37.0) 02/07/19 14:09 RDW 13.2 % (11.5-15.5) 02/07/19 14:09 Plt Count 306 k/uL (150-450) 02/07/19 14:09 Neutrophils % 58 % 02/07/19 14:09 Lymphocytes % 34 % 02/07/19 14:09 Monocytes % 4 % 02/07/19 14:09 Eosinophils % 1 % 02/07/19 14:09 Basophils % 1 % 02/07/19 14:09 Neutrophils # 4.6 k/uL (1.3-7.7) 02/07/19 14:09 Lymphocytes # 2.7 k/uL (1.0-4.8) 02/07/19 14:09 Monocytes # 0.3 k/uL (0-1.0) 02/07/19 14:09 Eosinophils # 0.1 k/uL (0-0.7) 02/07/19 14:09 Basophils # 0.1 k/uL (0-0.2) 02/07/19 14:09 Sodium 136 mmol/L (137-145) L 02/07/19 14:09 Potassium 4.2 mmol/L (3.5-5.1) 02/07/19 14:09 Chloride 102 mmol/L (98-107) 02/07/19 14:09 Carbon Dioxide 29 mmol/L (22-30) 02/07/19 14:09 Anion Gap 5 mmol/L 02/07/19 14:09 BUN 12 mg/dL (7-17) 02/07/19 14:09 Creatinine 0.52 mg/dL (0.52-1.04) 02/07/19 14:09 Est GFR (CKD-EPI)AfAm >90 (>60 ml/min/1.73 sqM) 02/07/19 14:09 Est GFR (CKD-EPI)NonAf >90 (>60 ml/min/1.73 sqM) 02/07/19 14:09 Glucose 295 mg/dL (74-99) H 02/07/19 14:09 POC Glucose (mg/dL) 119 mg/dL (75-99) H 02/11/19 07:44 POC Glu Director Pharmacy Services ID Alise Cárdenas 02/11/19 07:44 Calcium 9.3 mg/dL (8.4-10.2) 02/07/19 14:09 Total Bilirubin 0.2 mg/dL (0.2-1.3) 02/07/19 14:09 AST 15 U/L (14-36) 02/07/19 14:09 ALT 21 U/L (9-52) 02/07/19 14:09 Alkaline Phosphatase 61 U/L (38-126) 02/07/19 14:09 Total Protein 6.8 g/dL (6.3-8.2) 02/07/19 14:09 Albumin 4.1 g/dL (3.5-5.0) 02/07/19 14:09 Triglycerides 110 mg/dL (<150) 02/11/19 07:35 Cholesterol 99 mg/dL (<200) 02/11/19 07:35 LDL Cholesterol, Calc 38 mg/dL (0-99) 02/11/19 07:35 HDL Cholesterol 39 mg/dL (40-60) L 02/11/19 07:35 TSH 0.748 mIU/L (0.465-4.680) 02/11/19 07:35 Urine Color Light Yellow 02/07/19 14:00 Urine Appearance Cloudy (Clear) H 02/07/19 14:00 Urine pH 7.0 (5.0-8.0) 02/07/19 14:00 Ur Specific [place] 1.019 (1.001-1.035) 02/07/19 14:00 Urine Protein Negative (Negative) 02/07/19 14:00 Urine Glucose (UA) 4+ (Negative) H 02/07/19 14:00 Urine Ketones Negative (Negative) 02/07/19 14:00 Urine Blood Moderate (Negative) H 02/07/19 14:00 Urine Nitrite Negative (Negative) 02/07/19 14:00 Urine Bilirubin Negative (Negative) 02/07/19 14:00 Urine Urobilinogen <2.0 mg/dL (<2.0) 02/07/19 14:00 Ur Leukocyte Esterase Large (Negative) H 02/07/19 14:00 Urine RBC 33 /hpf (0-5) H 02/07/19 14:00 Urine WBC 15 /hpf (0-5) H 02/07/19 14:00 Ur Squamous Epith Cells 18 /hpf (0-4) H 02/07/19 14:00 Urine Bacteria Moderate /hpf (None) H 02/07/19 14:00 Urine Opiates Screen Not Detected (NotDetected) 02/07/19 14:00 Ur Oxycodone Screen Not Detected (NotDetected) 02/07/19 14:00 Urine Methadone Screen Not Detected (NotDetected) 02/07/19 14:00 Ur Propoxyphene Screen Not Detected (NotDetected) 02/07/19 14:00 Ur Barbiturates Screen Not Detected (NotDetected) 02/07/19 14:00 U Tricyclic Antidepress Not Detected (NotDetected) 02/07/19 14:00 Ur Phencyclidine Scrn Not Detected (NotDetected) 02/07/19 14:00 Ur Amphetamines Screen Not Detected (NotDetected) 02/07/19 14:00 U Methamphetamines Scrn Not Detected (NotDetected) 02/07/19 14:00 U Benzodiazepines Scrn Not Detected (NotDetected) 02/07/19 14:00 Urine Cocaine Screen Not Detected (NotDetected) 02/07/19 14:00 U Marijuana (THC) Screen Not Detected (NotDetected) 02/07/19 14:00 02/11/19 12:24 IDENTIFYING DATA: Patient is a 58-year-old female with a history of bipolar disorder who lives in an apartment alone in a single has 1 daughter and currently collects Social Security. HPI: Patient presented to the hospital brought in by police for being irritable, agitated. Patient claims that one of her friends called the recreational programs director on her because she was "having a good time". She claims that her friend is always trying to get her into the hospital and doesn't like when she is in a good mood. Patient claims that she has been feeling labile and hyperverbal with racing thoughts. She also spoke about loving people unconditionally and was tangential and hyperverbal during the conversation. Patient claims that she needs to be discharged so that she can go back to the religion and helped him with the garage sale and mention multiple other tasks that she would like to do. Patient also claims that the "wrong people" have been accusing her of wanting to break into a store to steal cigarettes which she denies at this time. Patient claims that she has good energy, has been sleeping well and has a fair appetite. At this time patient denies any denies any suicidal or homicidal ideations intent or plan. At this time patient denies any auditory or visual hallucinations. Patient has an increase in flight of ideas racing thoughts and increased in goal directed behavior. Patient claims that she has been taking her Seroquel and Depakote at home and claims that she has not been following up with her psychiatrist at this time. Patient admits to using THC edibles and claims that she quit drinking alcohol approximately 3 years ago. Patient admits to smoking cigarettes approximately 10 per day. Patient denies any other recreational substance use at this time. PAST PSYCHIATRIC HISTORY: Patient has a diagnosis of bipolar disorder type I and was previously on Seroquel 300 mg nightly along with Depakote ER 500 mg twice a day for mood stabilization. Patient was recently admitted onto the [facility] approx imately 2 weeks ago discharged. Patient admits to previous history of cutting herself on her arms when she was in her 20s however note serious suicide attempts in the past. Patient says that she has not been established yet at [facility] for psychiatric care. PMH: Diabetes mellitus, hypertension, CVA/TIA, GERD, HLP ALLERGIES: NKDA CHEMICAL DEPENDENCY HISTORY: As above in HPI. FAMILY PSYCHIATRIC/SUBSTANCE USE HISTORY: Claims her sister has bipolar disorder. Claims her uncle had depression and by suicide. SOCIAL HISTORY: Patient claims that she was born and raised in [place] and has a 10th grade education. 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 She states that she is single has one daughter and currently collects Social Security. Lives in apartment by herself. MENTAL STATUS EXAM: General Appearance: Patient appears to be older than stated age, directable however hyperverbal and intrusive/aggressive. Behavior: Patient is seated and appears to be restless and labile. Speech: Patient's speech is fluent and eye preverbal Mood/Affect: Patient reports their mood is "great", affect is congruent and euthymic. Suicidality/Homicidality: Patient denies having any suicidal or homicidal ideation intent or plan. Perceptions: Patient denies any auditory or visual hallucinations. Though content/process: There is multiple loosely formed delusions and her thought process is tangential however logical. Patient is focused on discharge. Memory and concentration: AOX3, grossly intact for the purposes of this session. Can spell "WORLD" backwards Judgment and insight: Poor STRENGTHS/WEAKNESSES: Has income and housing available. Patient has poor insight and poor coping skills. INTELLECT: Below average IMPRESSIONS: Bipolar disorder type I currently in manic episode. Cannabis use disorder Nicotine use disorder PLAN: -Patient is admitted under involuntary status to MHU for stabilization of psychiatric symptoms and safety. Patient signed medication consent and is placed in patient's chart. At this time a demand for hearing is going to be scheduled in the coming days which was filed by her outpatient provider. -Will start patient on Depakote ER 500 mg twice a day for mood stabilization. We'll also start Seroquel 300 mg daily at bedtime for mood stabilization and insomnia. -Geodon and Ativan PRN for agitation/aggression -Patient was counselled on substance abuse and desired to cut back on use -Patient was informed of the risks, benefits and side effects of the medication and patient verbally consented to taking the medications. Patient signed med consent form and was placed in chart. -NRT was offered and patient accepted. Ordered a nicotine patch. -NESTOR on board for discharge planning 02/11/19 12:35 02/11/19 12:36
[2019-02-11 12:43] LABS: Glucose,Whole Blood 173 mg/dL (75-99)
[2019-02-11] MEDS: NICOTINE 14MG/24HR PATCH TRANSDERM SCH (13:06)
[2019-02-11 17:32] LABS: Glucose,Whole Blood 139 mg/dL (75-99)
[2019-02-11 19:09] LABS: Hemoglobin A1C 9.3 % (4.0-6.0)
[2019-02-11 20:06] LABS: Glucose,Whole Blood 158 mg/dL (75-99)
[2019-02-11] MEDS: INSULIN DETEMIR (LEVEMIR) 100 UNIT/ML SYR SQ SCH (21:09)
[2019-02-11 22:21] LABS: Glucose,Whole Blood 266 mg/dL (75-99)
[2019-02-12] MEDS: ACETAMINOPHEN TAB 325 MG TAB PO PRN ×2 (01:21→19:45)
[2019-02-12] MEDS: LORazepam 1 MG TAB PO PRN ×2 (05:04→21:44)
[2019-02-12] MEDS: metFORMIN 500 MG TAB PO SCH ×2 (07:49→21:40)
[2019-02-12] MEDS: CEPHALEXIN 500 MG CAP PO SCH ×4 (07:49→22:19)
[2019-02-12] MEDS: DIVALPROEX ER 500 MG TAB.ER.24H PO SCH ×2 (07:49→21:41)
[2019-02-12] MEDS: NICOTINE 14MG/24HR PATCH TRANSDERM SCH (07:49)
[2019-02-12] MEDS: CYANOCOBALAMIN 500 MCG TAB PO SCH (07:49)
[2019-02-12] MEDS: GABAPENTIN 100 MG CAP PO SCH ×2 (07:49→21:40)
[2019-02-12] MEDS: PANTOPRAZOLE 40 MG TABLET PO SCH (07:49)
[2019-02-12] MEDS: LIPASE 5,000/PROTEASE 17,000/AMYLASE 24,000 PO SCH ×3 (07:50→17:41)
[2019-02-12 08:00] LABS: Glucose,Whole Blood 115 mg/dL (75-99)
[2019-02-12] MEDS: INSULIN ASPART (NovoLOG) 100 UNIT/ML VIAL SQ SCH ×5 (08:50→21:46)
--- NOTE | 2019-02-12 09:25 | P.PN ---
Progress Note - Text Progress Note Date: 02/12/19 Interval History: Patient was seen near the nurse's desk and was agreeable to speak to poem writer in the office. Patient was somewhat directable however continues to be tangential and demanding also hyperverbal. Patient states that she is feeling "just great" and claims that she is "the happiest of ever". Patient states that she slept well last night on the Seroquel however states that she does not understand why the Seroquel was added and claims that it prevents her from staying up and doing activities like she likes to do. Patient denies any depressive symptoms at this time. She states that she has good energy. Patient also claims that she has been going to groups and being compliant with medications. At this time patient denies any suicidal or homical ideations, intent or plan. Patient denies any auditory, visual hallucinations and denies any paranoia or delusions. Patient denies any side effects. Mental Status Exam: General Appearance: Patient appears to be older than stated age, is alert somewhat directable however patient is demanding intrusive and hyperverbal Behavior: Patient is seated however demanding to be released from the hospital Speech: Patient's speech is fluent and nonpressured. Mood/Affect: Mood is "the happiest ever", affect is congruent and labile Suicidality/Homicidality: Patient denies having any suicidal or homicidal ideation intent or plan. Perceptions: Patient denies any auditory or visual hallucinations. Though content/process: [There is no evidence of any delusional thought content and thought process is linear and goal-directed.] Patient is demanding intrusive, focused on discharge. Memory and concentration: AOX3, grossly intact for the purposes of this session Judgment and insight: Poor Assessment Bipolar disorder type I, currently in a manic episode. Cannabis use disorder Nicotine use disorder PLAN: -Patient is admitted under involuntary status to [facility]HU for stabilization of psychiatric symptoms and safety. Patient signed medication consent and is placed in patient's chart. At this time a awaiting for demand of hearing court date -Medications : Will increasing Depakote ER to 500 mg + 1000 mg at night for mood stabilization. Also continue Seroquel 300 mg daily at bedtime for mood stabilization and insomnia. -Ordered valproic acid level for Sunday morning. -Geodon and Ativan PRN for agitation/aggression -NRT - nicotine patch. -SW on board for discharge planning
[2019-02-12 12:38] LABS: Glucose,Whole Blood 191 mg/dL (75-99)
[2019-02-12 17:34] LABS: Glucose,Whole Blood 186 mg/dL (75-99)
[2019-02-12 20:08] LABS: Glucose,Whole Blood 210 mg/dL (75-99)
[2019-02-12] MEDS: INSULIN DETEMIR (LEVEMIR) 100 UNIT/ML SYR SQ SCH ×2 (21:32→21:47)
[2019-02-12] MEDS: QUEtiapine 100 MG TAB PO SCH (21:44)
[2019-02-13] MEDS: ZIPRASIDONE 20 MG VIAL IM PRN (03:04)
[2019-02-13] MEDS: INSULIN ASPART (NovoLOG) 100 UNIT/ML VIAL SQ SCH ×4 (07:43→21:00)
[2019-02-13 07:44] LABS: Glucose,Whole Blood 102 mg/dL (75-99)
[2019-02-13] MEDS: LIPASE 5,000/PROTEASE 17,000/AMYLASE 24,000 PO SCH ×3 (08:29→17:51)
[2019-02-13] MEDS: CYANOCOBALAMIN 500 MCG TAB PO SCH (08:29)
[2019-02-13] MEDS: CEPHALEXIN 500 MG CAP PO SCH ×4 (08:29→21:06)
[2019-02-13] MEDS: PANTOPRAZOLE 40 MG TABLET PO SCH (08:29)
[2019-02-13] MEDS: DIVALPROEX ER 500 MG TAB.ER.24H PO SCH ×2 (08:30→21:05)
[2019-02-13] MEDS: NICOTINE 14MG/24HR PATCH TRANSDERM SCH (08:30)
[2019-02-13] MEDS: metFORMIN 500 MG TAB PO SCH ×2 (08:30→21:05)
[2019-02-13] MEDS: GABAPENTIN 100 MG CAP PO SCH ×2 (08:30→21:05)
--- NOTE | 2019-02-13 08:42 | P.PN ---
Progress Note - Text Progress Note Date: 02/13/19 Interval History: Patient was seen in the hallways morning and was agreeable to speak to typewriter ribbon winder in the office. Patient continues to be focused on discharge and has poor insight into her condition. Patient appears to be somewhat somnolent this morning and states that she got a Ativan and Geodon IM injection last night for agitation. She states that she was demanding to speak to her therapist and demanding to leave. Patient states that she has no other complaints and has been attempting to be cooperative with staff. Patient claims that she's been taking her medications and claims that her mood is "great". Patient claims that her energy and concentration are good. At this time patient denies any suicidal or homical ideations, intent or plan. Patient denies any auditory, visual hallucinations and denies any paranoia or delusions. Patient denies any side effects from the medications and has been compliant with meds. Mental Status Exam: General Appearance: Patient appears to be older than stated age, is alert somewhat directable however patient is demanding, preoccupied with discharge Behavior: Patient is seated however demanding to be released from the hospital Speech: Patient's speech is fluent and nonpressured. Mood/Affect: Mood is "great", affect is congruent and constricted Suicidality/Homicidality: Patient denies having any suicidal or homicidal ideation intent or plan. Perceptions: Patient denies any auditory or visual hallucinations. Though content/process: There is no evidence of any delusional thought content and thought process is linear and goal-directed. Patient is demanding, focused on discharge. Memory and concentration: AOX3, grossly intact for the purposes of this session Judgment and insight: Poor Assessment Bipolar disorder type I, currently in a manic episode. Cannabis use disorder Nicotine use disorder PLAN: -Patient is admitted under involuntary status to [facility]HU for stabilization of psychiatric symptoms and safety. Patient signed medication consent and is placed in patient's chart. At this time a awaiting for demand of hearing court date -Medications : Will continue with Depakote ER to 500 mg + 1000 mg at night for mood stabilization. Also continue Seroquel 300 mg daily at bedtime for mood stabilization and insomnia. -Ordered valproic acid level for Sunday morning. -Geodon and Ativan PRN for agitation/aggression -NRT - nicotine patch. -SW on board for discharge planning
[2019-02-13] MEDS: ACETAMINOPHEN TAB 325 MG TAB PO PRN ×2 (12:33→15:20)
[2019-02-13 12:38] LABS: Glucose,Whole Blood 95 mg/dL (75-99)
[2019-02-13 17:33] LABS: Glucose,Whole Blood 273 mg/dL (75-99)
[2019-02-13 20:00] LABS: Glucose,Whole Blood 250 mg/dL (75-99)
[2019-02-13] MEDS: INSULIN DETEMIR (LEVEMIR) 100 UNIT/ML SYR SQ SCH (20:59)
[2019-02-13] MEDS: QUEtiapine 100 MG TAB PO SCH (21:05)
[2019-02-13] MEDS: LORazepam 1 MG TAB PO PRN (21:06)
[2019-02-14] MEDS: ACETAMINOPHEN TAB 325 MG TAB PO PRN (02:14)
[2019-02-14 07:47] LABS: Glucose,Whole Blood 278 mg/dL (75-99)
[2019-02-14] MEDS: INSULIN ASPART (NovoLOG) 100 UNIT/ML VIAL SQ SCH ×4 (07:55→20:21)
[2019-02-14] MEDS: LIPASE 5,000/PROTEASE 17,000/AMYLASE 24,000 PO SCH ×3 (07:55→17:40)
[2019-02-14] MEDS: NICOTINE 14MG/24HR PATCH TRANSDERM SCH (07:55)
[2019-02-14] MEDS: PANTOPRAZOLE 40 MG TABLET PO SCH (07:56)
[2019-02-14] MEDS: metFORMIN 500 MG TAB PO SCH ×2 (07:56→20:40)
[2019-02-14] MEDS: GABAPENTIN 100 MG CAP PO SCH ×2 (07:56→20:40)
[2019-02-14] MEDS: CYANOCOBALAMIN 500 MCG TAB PO SCH (07:57)
[2019-02-14] MEDS: LORazepam 1 MG TAB PO PRN ×2 (07:58→17:41)
[2019-02-14] MEDS ORDERED: cefTRIAXone 1,000 MG VIAL (IM USE) IM STA (09:52)
[2019-02-14 12:18] LABS: Glucose,Whole Blood 140 mg/dL (75-99)
[2019-02-14] MEDS: DIVALPROEX ER 500 MG TAB.ER.24H PO SCH ×2 (12:26→20:45)
--- NOTE | 2019-02-14 13:11 | P.PN ---
Progress Note - Text Progress Note Date: 02/14/19 Interval History: Patient was seen early this morning prior to going to court and was agreeable to speak to editorial writer. Patient appeared to be somewhat calmer this morning and was less tangential and hyperverbal. Patient states that she slept well last night however he urinated on herself before she was able to go to the bathroom. She denies any burning when she urinates, change in color of urine or symptoms of urinary retention. She states that the Seroquel is helping her sleep at night while and is getting 6-8 hours of rest. Patient continues to be preoccupied with discharge and with court date. Patient asked several times editorial writer if he can write for a therapy dog for her when she goes home. Patient continues to have superficial/poor insight and judgment. She states that she is going to groups and gaining benefit from them. At this time patient denies any suicidal or homical ideations, intent or plan. Patient denies any auditory, visual hallucinations and denies any paranoia or delusions. Patient denies any side effects from the medications and has been compliant with meds. Mental Status Exam: General Appearance: Patient appears to be older than stated age, is alert somewhat directable however patient is demanding, preoccupied with discharge and getting a therapy dog. Behavior: Patient is slightly more appropriate, no agitation. Speech: Patient's speech is fluent and nonpressured. Somewhat hyperverbal Mood/Affect: Mood is "good", affect is congruent and constricted Suicidality/Homicidality: Patient denies having any suicidal or homicidal ideation intent or plan. Perceptions: Patient denies any auditory or visual hallucinations. Though content/process: There is no evidence of any delusional thought content and thought process is linear and goal-directed. Patient is demanding, focused on discharge. Memory and concentration: AOX3, grossly intact for the purposes of this session Judgment and insight: Poor, superficial Assessment Bipolar disorder type I, currently in a manic episode. Cannabis use disorder Nicotine use disorder PLAN: -Patient is admitted under involuntary status to [facility]HU for stabilization of psychiatric symptoms and safety. At this time a awaiting for demand of hearing from Court and order. -Medications : Will continue with Depakote ER to 500 mg + 1000 mg at night for mood stabilization. Also continue Seroquel 300 mg daily at bedtime for mood stabilization and insomnia. We'll consider adding Abilify and possibly look at a long-acting injection prior to discharge. -Ordered valproic acid level for today -Given patient's positive UA and noncompliance with by mouth antibiotics, will order Rocephin 1 g IM. Will order a repeat UA for Sunday. -Geodon and Ativan PRN for agitation/aggression -NRT - nicotine patch. -SW on board for discharge planning
[2019-02-14] MEDS: CEPHALEXIN 500 MG CAP PO SCH ×3 (14:38→21:16)
[2019-02-14 17:23] LABS: Glucose,Whole Blood 232 mg/dL (75-99)
[2019-02-14 19:56] LABS: Glucose,Whole Blood 252 mg/dL (75-99)
[2019-02-14] MEDS: QUEtiapine 100 MG TAB PO SCH (20:40)
[2019-02-14] MEDS ORDERED: INSULIN DETEMIR (LEVEMIR) 100 UNIT/ML SYR SQ SCH (21:00)
[2019-02-15 07:42] LABS: Glucose,Whole Blood 138 mg/dL (75-99)
[2019-02-15] MEDS: LIPASE 5,000/PROTEASE 17,000/AMYLASE 24,000 PO SCH ×3 (07:47→17:22)
[2019-02-15] MEDS: PANTOPRAZOLE 40 MG TABLET PO SCH (07:48)
[2019-02-15] MEDS: DIVALPROEX ER 500 MG TAB.ER.24H PO SCH ×2 (07:48→20:41)
[2019-02-15] MEDS: metFORMIN 500 MG TAB PO SCH ×2 (07:48→20:41)
[2019-02-15] MEDS: CEPHALEXIN 500 MG CAP PO SCH ×4 (07:48→20:41)
[2019-02-15] MEDS: GABAPENTIN 100 MG CAP PO SCH ×3 (07:48→21:09)
[2019-02-15] MEDS: CYANOCOBALAMIN 500 MCG TAB PO SCH (07:48)
[2019-02-15] MEDS: LORazepam 1 MG TAB PO PRN ×2 (07:51→17:24)
[2019-02-15] MEDS: INSULIN ASPART (NovoLOG) 100 UNIT/ML VIAL SQ SCH ×4 (07:53→20:46)
[2019-02-15] MEDS ORDERED: ARIPiprazole 5 MG TAB PO SCH (09:00)
[2019-02-15] MEDS: NICOTINE 14MG/24HR PATCH TRANSDERM SCH (09:08)
--- NOTE | 2019-02-15 11:21 | P.PN ---
Progress Note - Text Progress Note Date: 02/15/19 Interval history: Patient was seen in the TV room and was agreeable to speak to instructional writer. Patient states that she feels calmer on her current dose of medications and states that she is sleeping well at night and going to groups. Patient continues to be preoccupied with discharge and asked instructional writer about obtaining a therapy dog when she gets discharged. At this time she denies any side effects from medications and claims that she understands that she has to take the medications and possibly a long-acting injection given her court order. At this time patient denies any suicidal or homicidal ideations intent or plan. Denies any Auditory or visual hallucinations. Patient denies any side effects from the medications and has been compliant with meds. Mental status exam: General Appearance: Patient appears to be stated age is alert, somewhat cooperative and directable Behavior: [No agitated behavior. Patient is calmer today Speech: Patient's speech is fluent and nonpressured. Mood/Affect: Mood is improving, affect is congruent and constricted. Suicidality/Homicidality: Patient denies having any suicidal or homicidal ideation intent or plan. Perceptions: Patient denies any auditory or visual hallucinations. Though content/process: There is no evidence of any delusional thought content and thought process is linear and goal-directed. Continues to be preoccupied with discharge. Memory and concentration: AOX3, grossly intact for the purposes of this session Judgment and insight: improving, mildly Assessment/Plan: Continue with current diagnosis. Patient continues to meet criteria for inpatient psychiatric admission for symptom stabilization and safety.Patient will be maintained on current psychotropic medication regimen, with the exception of an increase in her Abilify tomorrow to 10 mg daily. It was discussed with patient that she will be placed on a long-acting injection and also that the Seroquel will be titrated off prior to discharge. Monitor for medication compliance and for any psychotropic medication side effects. Will continue to monitor ongoing response to treatment.
[2019-02-15 12:26] LABS: Glucose,Whole Blood 130 mg/dL (75-99)
[2019-02-15 17:19] LABS: Glucose,Whole Blood 221 mg/dL (75-99)
[2019-02-15] MEDS: ACETAMINOPHEN TAB 325 MG TAB PO PRN (17:24)
[2019-02-15 20:15] LABS: Glucose,Whole Blood 273 mg/dL (75-99)
[2019-02-15] MEDS: QUEtiapine 100 MG TAB PO SCH ×2 (20:41→20:49)
[2019-02-15] MEDS ORDERED: INSULIN DETEMIR (LEVEMIR) 100 UNIT/ML SYR SQ SCH (21:00)
[2019-02-16 03:03] LABS: Glucose,Whole Blood 65 mg/dL (75-99)
[2019-02-16 03:17] LABS: Glucose,Whole Blood 100 mg/dL (75-99)
[2019-02-16 05:31] LABS: Glucose,Whole Blood 109 mg/dL (75-99)
[2019-02-16 07:33] LABS: Glucose,Whole Blood 105 mg/dL (75-99)
[2019-02-16] MEDS: INSULIN ASPART (NovoLOG) 100 UNIT/ML VIAL SQ SCH ×4 (07:45→20:07)
[2019-02-16] MEDS: CYANOCOBALAMIN 500 MCG TAB PO SCH (07:46)
[2019-02-16] MEDS: DIVALPROEX ER 500 MG TAB.ER.24H PO SCH ×2 (07:46→20:10)
[2019-02-16] MEDS: CEPHALEXIN 500 MG CAP PO SCH ×4 (07:46→20:10)
[2019-02-16] MEDS: LIPASE 5,000/PROTEASE 17,000/AMYLASE 24,000 PO SCH ×3 (07:46→17:32)
[2019-02-16] MEDS: metFORMIN 500 MG TAB PO SCH ×2 (07:46→20:10)
[2019-02-16] MEDS: PANTOPRAZOLE 40 MG TABLET PO SCH (07:46)
[2019-02-16] MEDS: GABAPENTIN 100 MG CAP PO SCH ×2 (07:46→21:00)
[2019-02-16] MEDS: NICOTINE 14MG/24HR PATCH TRANSDERM SCH (07:47)
[2019-02-16] MEDS: LORazepam 1 MG TAB PO PRN (07:49)
[2019-02-16] MEDS ORDERED: ARIPiprazole 10 MG TAB PO SCH (09:00)
--- NOTE | 2019-02-16 11:45 | P.PN ---
Progress Note - Text Progress Note Date: 02/16/19 Interval history: Patient was seen in the game room and was agreeable to speak to data analyst report writer. Patient appeared to be more cooperative and directable today. She states that she feels calmer on her current dose of medications and states that she is sleeping well at night and going to groups. Patient continues to be preoccupied with discharge and asked data analyst report writer when she can anticipate to go home. Patient appears to have improving insight and judgment. She understands her medications more and states that "I want to get a right now". At this time she denies any side effects from medications and claims that she understands that she has to take the medications and possibly a long-acting injection given her court order. At this time patient denies any suicidal or homicidal ideations intent or plan. Denies any Auditory or visual hallucinations. Patient denies any side effects from the medications and has been compliant with meds. Mental status exam: General Appearance: Patient appears to be stated age is alert, somewhat more cooperative and directable Behavior: No agitated behavior. Patient is calmer today Speech: Patient's speech is fluent and nonpressured. Mood/Affect: Mood is improving, affect is congruent and constricted. Suicidality/Homicidality: Patient denies having any suicidal or homicidal ideation intent or plan. Perceptions: Patient denies any auditory or visual hallucinations. Though content/process: There is no evidence of any delusional thought content and thought process is linear and goal-directed. Continues to be preoccupied with discharge. Memory and concentration: AOX3, grossly intact for the purposes of this session Judgment and insight: improving, mildly Assessment/Plan: Continue with current diagnosis. Patient continues to meet criteria for inpatient psychiatric admission for symptom stabilization and safety. Patient to be increased to 12 mg of Abilify starting tomorrow for mood stabilization. It was discussed with patient that she will be placed on a long- acting injection. We'll continue with trying to titrate off Seroquel prior to discharge. Switched patient's Depakote ER 1500 mg to daily at bedtime dosing for mood stabilization. Monitor for medication compliance and for any psychotropic medication side effects. Will continue to monitor ongoing response to treatment.
[2019-02-16 12:24] LABS: Glucose,Whole Blood 89 mg/dL (75-99)
[2019-02-16] MEDS: ACETAMINOPHEN TAB 325 MG TAB PO PRN (16:17)
[2019-02-16 17:14] LABS: Glucose,Whole Blood 162 mg/dL (75-99)
[2019-02-16 20:03] LABS: Glucose,Whole Blood 329 mg/dL (75-99)
[2019-02-16] MEDS: INSULIN DETEMIR (LEVEMIR) 100 UNIT/ML SYR SQ SCH (20:15)
[2019-02-16] MEDS ORDERED: QUEtiapine 100 MG TAB PO SCH (21:00)
[2019-02-17 01:36] LABS: Glucose,Whole Blood 151 mg/dL (75-99)
[2019-02-17] MEDS: ACETAMINOPHEN TAB 325 MG TAB PO PRN (06:20)
[2019-02-17] MEDS: LORazepam 1 MG TAB PO PRN (06:20)
[2019-02-17 07:46] LABS: Glucose,Whole Blood 148 mg/dL (75-99)
[2019-02-17] MEDS: NICOTINE 14MG/24HR PATCH TRANSDERM SCH (08:26)
[2019-02-17] MEDS: CEPHALEXIN 500 MG CAP PO SCH ×4 (08:27→20:06)
[2019-02-17] MEDS: PANTOPRAZOLE 40 MG TABLET PO SCH (08:27)
[2019-02-17] MEDS: CYANOCOBALAMIN 500 MCG TAB PO SCH (08:27)
[2019-02-17] MEDS: GABAPENTIN 100 MG CAP PO SCH ×2 (08:27→21:03)
[2019-02-17] MEDS: metFORMIN 500 MG TAB PO SCH ×2 (08:27→20:06)
[2019-02-17] MEDS: INSULIN ASPART (NovoLOG) 100 UNIT/ML VIAL SQ SCH ×4 (08:27→20:03)
[2019-02-17] MEDS: LIPASE 5,000/PROTEASE 17,000/AMYLASE 24,000 PO SCH ×3 (08:28→17:24)
[2019-02-17] MEDS ORDERED: ARIPiprazole 10 MG TAB PO SCH (09:00)
[2019-02-17] MEDS ORDERED: ARIPiprazole 2 MG TAB PO SCH (09:00)
--- NOTE | 2019-02-17 09:51 | P.PN ---
Progress Note - Text Progress Note Date: 02/17/19 Interval History: Patient was seen morning and was eager to speak to commercial underwriter in the office. Suzan ent appears to be somewhat calmer this morning and is less hyperverbal. She states that she feels much calmer on the medications and claims that she understands the importance of being compliant with the medications to avoid being in the hospital. Patient asked repeatedly about discharge and what day she can be picked up by her sister to be taken home. She states that she is sleeping at night while and is getting 6-8 hours of rest. Patient's insight and judgment are gradually improving. She states that she is cooperative with other patients on the unit and is attending groups as much as she can. At this time patient denies any suicidal or homical ideations, intent or plan. Patient denies any auditory, visual hallucinations and denies any paranoia or delusions. Patient denies any side effects from the medications and has been compliant with meds. Mental Status Exam: General Appearance: Patient appears to be older than stated age, is alert somewhat directable, preoccupied with discharge. Behavior: Patient is slightly more appropriate, no agitation. Speech: Patient's speech is fluent and nonpressured. Mood/Affect: Mood is "good", affect is congruent and constricted Suicidality/Homicidality: Patient denies having any suicidal or homicidal ideation intent or plan. Perceptions: Patient denies any auditory or visual hallucinations. Though content/process: There is no evidence of any delusional thought content and thought process is linear and goal-directed. Focused on discharge. Memory and concentration: AOX3, grossly intact for the purposes of this session Judgment and insight: Fair, improving mildly Assessment Bipolar disorder type I, currently in a manic episode. Cannabis use disorder Nicotine use disorder PLAN: -Patient is admitted under involuntary status to [facility] for stabilization of psychiatric symptoms and safety. Patient is currently court ordered for treatment. -Medications : Will continue with Depakote ER 1500 mg at night for mood stabilization. Also continue to titrate down Seroquel to 100 mg daily at bedtime for mood stabilization and insomnia. Increase Abilify to 15 mg daily for mood stabilization. Patient will be receiving Abilify maintenna 400 likely tomorrow. -Geodon and Ativan PRN for agitation/aggression -NRT - nicotine patch. -SW on board for discharge planning. Likely discharge mid week.
[2019-02-17] MEDS: hydrOXYzine HCL 25 MG TAB PO PRN (10:25)
[2019-02-17 12:32] LABS: Glucose,Whole Blood 230 mg/dL (75-99)
[2019-02-17] MEDS: ERGOCALCIFEROL 50,000 UNIT CAP PO SCH (14:50)
[2019-02-17 17:28] LABS: Glucose,Whole Blood 184 mg/dL (75-99)
[2019-02-17 20:01] LABS: Glucose,Whole Blood 257 mg/dL (75-99)
[2019-02-17] MEDS: INSULIN DETEMIR (LEVEMIR) 100 UNIT/ML SYR SQ SCH (20:03)
[2019-02-17] MEDS: DIVALPROEX ER 500 MG TAB.ER.24H PO SCH (20:06)
[2019-02-17] MEDS ORDERED: QUEtiapine 100 MG TAB PO SCH (21:00)
[2019-02-18 00:53] LABS: Glucose,Whole Blood 134 mg/dL (75-99)
[2019-02-18 03:19] LABS: Glucose,Whole Blood 97 mg/dL (75-99)
[2019-02-18 05:39] LABS: Glucose,Whole Blood 105 mg/dL (75-99)
[2019-02-18] MEDS: ACETAMINOPHEN TAB 325 MG TAB PO PRN (05:39)
[2019-02-18 07:41] LABS: Glucose,Whole Blood 135 mg/dL (75-99)
[2019-02-18] MEDS: INSULIN ASPART (NovoLOG) 100 UNIT/ML VIAL SQ SCH ×5 (08:02→20:49)
[2019-02-18] MEDS: LIPASE 5,000/PROTEASE 17,000/AMYLASE 24,000 PO SCH ×3 (08:31→17:23)
[2019-02-18] MEDS: PANTOPRAZOLE 40 MG TABLET PO SCH (08:32)
[2019-02-18] MEDS: hydrOXYzine HCL 25 MG TAB PO PRN (08:36)
[2019-02-18] MEDS: CYANOCOBALAMIN 500 MCG TAB PO SCH (08:36)
[2019-02-18] MEDS: metFORMIN 500 MG TAB PO SCH ×2 (08:36→20:00)
[2019-02-18] MEDS: ARIPiprazole 15 MG TAB PO SCH (08:36)
[2019-02-18] MEDS: CEPHALEXIN 500 MG CAP PO SCH ×4 (08:36→20:00)
[2019-02-18] MEDS: GABAPENTIN 100 MG CAP PO SCH ×2 (08:36→20:00)
--- NOTE | 2019-02-18 09:23 | P.PN ---
Progress Note - Text Progress Note Date: 02/18/19 Interval History: Patient was seen morning wandering the hallways and was agreeable to speak to check writer salesperson in the office. Patient continued to be preoccupied with discharge and states that she is doing well. She spoke about her sister wanting to come and pick her up as she does not have to work this week. Patient admits to the importance of her medication and seems to have improving insight and judgment. Patient is denying any side effects or akathisia from the medication and claims that is helping her "keep my mood stable". Patient claims that she understands the importance of her medication and the need to adhere to this regimen so she does not get rehospitalized. Patient states that she is going to groups and interacting well with other people on the unit. Patient is more directable and less hyperverbal today along with being less intrusive. She claims to have fair energy and slept well last night. At this time patient denies any suicidal or homical ideations, intent or plan. Patient denies any auditory, visual hallucinations and denies any paranoia or delusions. Patient denies any side effects from the medications and has been compliant with meds. Mental Status Exam: General Appearance: Patient appears to be older than stated age, is alert somewhat directable, continues to be preoccupied with discharge. Behavior: Patient is slightly more appropriate, no agitation. Speech: Patient's speech is fluent and nonpressured. Mood/Affect: Mood is "fine", affect is congruent and constricted Suicidality/Homicidality: Patient denies having any suicidal or homicidal ideation intent or plan. Perceptions: Patient denies any auditory or visual hallucinations. Though content/process: There is no evidence of any delusional thought content and thought process is linear and goal-directed. Continues to be focused on discharge. Memory and concentration: AOX3, grossly intact for the purposes of this session Judgment and insight: Fair, improving mildly Assessment Bipolar disorder type I, currently in a manic episode. Cannabis use disorder Nicotine use disorder PLAN: -Patient is admitted under involuntary status to [facility] for stabilization of psychiatric symptoms and safety. Patient is currently court ordered for treatment which was issued on 02/14/2019. -Medications : Will continue with Depakote ER 1500 mg at night for mood stabilization. Also continue to titrate down Seroquel to 50 mg daily at bedtime for mood stabilization and insomnia. Continue with Abilify to 15 mg daily for mood stabilization. Patient will be receiving Abilify maintenna 400 today. Added melatonin 3 mg daily at bedtime for sleep. -Repeat UA today to check if infection has cleared. Patient at this time is denying any urinary symptoms including urgency, blood or pus in the urine or dysuria. -Geodon and Ativan PRN for agitation/aggression -NRT - nicotine patch. -SW on board for discharge planning. Likely discharge mid week.
[2019-02-18] MEDS: NICOTINE 14MG/24HR PATCH TRANSDERM SCH (09:28)
[2019-02-18 09:30] LABS: Appearance,Urine Clear (Clear); Bilirubin,Urine Negative (Negative); Blood,Urine Negative (Negative); Color,Urine Yellow; Glucose,Urine (UA) 2+ (Negative); Ketones,Urine 1+ (Negative); Leukocyte Esterase,Urine Negative (Negative); Nitrite,Urine Negative (Negative); Protein,Urine Negative (Negative); Specific Gravity,Urine 1.023 (1.001-1.035); Urobilinogen,Urine <2.0 mg/dL (<2.0)
[2019-02-18] MEDS ORDERED: ARIPiprazole IM SYRINGE 400 MG (NO CHARGE) IM ONE (12:00)
[2019-02-18 12:50] LABS: Glucose,Whole Blood 148 mg/dL (75-99)
[2019-02-18 13:27] VITALS: BMI 22.1
[2019-02-18 17:31] LABS: Glucose,Whole Blood 241 mg/dL (75-99)
[2019-02-18] MEDS: DIVALPROEX ER 500 MG TAB.ER.24H PO SCH (19:59)
[2019-02-18 20:06] LABS: Glucose,Whole Blood 179 mg/dL (75-99)
[2019-02-18] MEDS ORDERED: MELATONIN 3 MG TABLET PO SCH (21:00)
[2019-02-18] MEDS ORDERED: QUEtiapine 50 MG TAB PO SCH (21:00)
[2019-02-18] MEDS ORDERED: INSULIN DETEMIR (LEVEMIR) 100 UNIT/ML SYR SQ SCH (21:00)
[2019-02-19 00:52] LABS: Glucose,Whole Blood 137 mg/dL (75-99)
[2019-02-19] MEDS: ACETAMINOPHEN TAB 325 MG TAB PO PRN (05:43)
[2019-02-19 06:04] VITALS: BP 106/73; PULSE 79; RESP 16; TEMP 97.9
[2019-02-19 07:44] LABS: Glucose,Whole Blood 105 mg/dL (75-99)
[2019-02-19] MEDS: INSULIN ASPART (NovoLOG) 100 UNIT/ML VIAL SQ SCH (07:56)
[2019-02-19] MEDS: LIPASE 5,000/PROTEASE 17,000/AMYLASE 24,000 PO SCH (07:57)
[2019-02-19] MEDS: PANTOPRAZOLE 40 MG TABLET PO SCH (07:57)
[2019-02-19] MEDS: NICOTINE 14MG/24HR PATCH TRANSDERM SCH (08:54)
[2019-02-19] MEDS: ARIPiprazole 15 MG TAB PO SCH (08:54)
[2019-02-19] MEDS: metFORMIN 500 MG TAB PO SCH (08:54)
[2019-02-19] MEDS: GABAPENTIN 100 MG CAP PO SCH (08:54)
[2019-02-19] MEDS: CYANOCOBALAMIN 500 MCG TAB PO SCH (08:54)
[2019-02-19] MEDS: hydrOXYzine HCL 25 MG TAB PO PRN (08:55)
--- NOTE | 2019-02-19 09:14 | P.DS ---
Providers Date of admission: 02/10/19 14:07 Expected date of discharge: 02/19/19 Attending physician: Tevin Mckeon MD Consults: 02/10/19 14:28 Consult Physician Routine Consulting Provider: Mark Anthony Mack Consult Reason/Comments: H&P and medical and insulin sliding scale Do you want consulting provider notified?: Yes Primary care physician: Cecilia Cortez - Discharge Diagnosis(es) (1) Bipolar disorder, manic Current Visit: Yes Status: Acute Priority: High (2) Cannabis abuse Current Visit: Yes Status: Acute Priority: Medium (3) Nicotine dependence Current Visit: Yes Status: Acute Priority: Low Hospital Course: Admission HPI: Patient is a 58-year-old female with a history of bipolar disorder who lives in an apartment alone in a single has 1 daughter and currently collects Social Security. Patient presented to the hospital brought in by police for being irritable, agitated. Patient claims that one of her friends called the scrap iron cutter on her because she was "having a good time". She claims that her friend is always trying to get her into the hospital and doesn't like when she is in a good mood. Patient claims that she has been feeling labile and hyperverbal with racing thoughts. She also spoke about loving people unconditionally and was tangential and hyperverbal during the conversation. Patient claims that she needs to be discharged so that she can go back to the sikh and helped him with the garage sale and mention multiple other tasks that she would like to do. Patient also claims that the "wrong people" have been accusing her of wanting to break into a store to steal cigarettes which she denies at this time. Patient claims that she has good energy, has been sleeping well and has a fair appetite. At this time patient denies any denies any suicidal or homicidal ideations intent or plan. At this time patient denies any auditory or visual hallucinations. Patient has an increase in flight of ideas racing thoughts and increased in goal directed behavior. Patient claims that she has been taking her Seroquel and Depakote at home and claims that she has not been following up with her psychiatrist at this time. Patient admits to using THC edibles and claims that she quit drinking alcohol approximately 3 years ago. Patient admits to smoking cigarettes approximately 10 per day. Patient denies any other recreational substance use at this time. Hospital course: Upon admission to the unit patient was initially displaying any signs of juan including intrusiveness, agitation and pressured speech. Patient was currently in the process of waiting for a demand of hearing in probate court filed by her outpatient provider. Patient did attend court on 02/14/2019 and was given a court order for mandated treatment at that time. Patient was initially preoccupied with discharge and reluctant to commence treatment however gradually became involved and started treatment on the unit. Patient got along fairly well with other patients on the unit and followed unit protocol. Patient did require PRNs at times on the unit for agitation and aggression. Patient was compliant with the medications and denied any side effects throughout hospital course. Patient was started on Depakote and was titrated up to 1500 mg daily at bedtime for mood stabilization. Patient was also started on Abilify and titrated up to 15 mg daily for mood stabilization/psychosis. Patient was given Abilify Maintenna 400 mg IM injection on 02/18/2019 and tolerated it well. Patient was previously on Seroquel which was titrated down to 50 mg daily at bedtime and will continue to be titrated off upon discharge. Patient was also started on melatonin for sleep. Patient spoke of her stressors and engaged in therapy both group and individual. Patient was also seen by medical team for history and physical exam. Patient did present with a urinary tract infection and reported dysuria and urgency. Patient was treated with oral antibiotics along with an IM dose of Rocephin. Follow-up UA was negative for infection in the urine. Throughout the course of the hospitalization patient gradually improved with regards to mood stabilization and became future oriented with improved insight and judgment. Patient no longer displayed intrusive and aggressive behaviors and claimed to be sleeping well at night and getting along with other patients on the unit. On the day of discharge patient denied any suicidal or homicidal ideations intent or plan denied any auditory or visual hallucinations. Patient denied any paranoia and did not endorse any delusions. Patient does have a significant history of substance abuse and was counseled on abstaining from all substances including alcohol and marijuana. Patient was also counseled on the medications and need for regular compliance and was encouraged to follow-up with their outpatient appointment for mental health and also for primary care. Prior to discharge a family meeting will be arranged by social worker masters to answer any questions and ensure safety upon discharge. Mental status exam: General Appearance: Patient appears to be stated age is alert, pleasant, and cooperative. Patient is in no acute distress and has fair hygiene and grooming Behavior: Patient is calmly seated without any agitated behavior. Speech: Patient's speech is fluent and nonpressured. Mood/Affect: Patient reports their mood is "stable", affect is congruent and euthymic. Suicidality/Homicidality: Patient denies having any suicidal or homicidal ideation intent or plan. Perceptions: Patient denies any auditory or visual hallucinations. Though content/process: There is no evidence of any delusional thought content and thought process is linear and goal-directed. Memory and concentration: AOX3, grossly intact for the purposes of this session. Can spell "WORLD" backwards correctly. Judgment and insight: fair, improved Impression: Bipolar disorder type I, juan Cannabis use disorder Nicotine dependence Plan: -Continue with discharge today as patient has improved and stabilized psychiatrically and no longer remains an imminent threat to herself and/or others. -Continue medications: Abilify by mouth 15 mg daily for mood stabilization. The patient will get a 14 day supply of this and then can discontinue and remain on long-acting injection every 4 weeks. Abilify maintenna 400mg IM given on 02/18/2019, tolerated well and will be due for next injection on 03/18/2019. Continue with Depakote ER 1500 mg daily at bedtime for mood stabilization. Continue titrating off Seroquel, currently at 50 mg daily at bedtime will be given prescription for 5 days and then can be discontinued. Can continue with Atarax 25 mg every 8 hours when necessary for anxiety. Continue with melatonin 3 mg daily at bedtime for sleep. -Patient was counseled on the need for medication compliance and appropriate follow-up at mental health and also primary care for medical issues. Patient verbalized understanding and agreed. -Patient was given a court order on 02/14/2019 for mandated treatment. -Social work to reconnect patient with [facility] for continued care upon discharge. Social work to offer resources for substance use treatment prior to discharge. -Patient counseled on abstaining from recreational drugs and marijuana and alcohol. Was informed/educated on the adverse effects on their physical and mental health. -Patient was instructed to return to the hospital or seek immediate medical care if their psychiatric or medical systems do worsen or reoccur. Allergies Allergy/AdvReac Type Severity Reaction Status Date / Time No Known Allergies Allergy Verified 02/07/19 11:53 Laboratory Results WBC 8.0 k/uL (3.8-10.6) 02/07/19 14:09 RBC 4.07 m/uL (3.80-5.40) 02/07/19 14:09 Hgb 12.5 gm/dL (11.4-16.0) 02/07/19 14:09 Hct 38.6 % (34.0-46.0) 02/07/19 14:09 MCV 94.8 fL (80.0-100.0) 02/07/19 14:09 MCH 30.8 pg (25.0-35.0) 02/07/19 14:09 MCHC 32.5 g/dL (31.0-37.0) 02/07/19 14:09 RDW 13.2 % (11.5-15.5) 02/07/19 14:09 Plt Count 306 k/uL (150-450) 02/07/19 14:09 Neutrophils % 58 % 02/07/19 14:09 Lymphocytes % 34 % 02/07/19 14:09 Monocytes % 4 % 02/07/19 14:09 Eosinophils % 1 % 02/07/19 14:09 Basophils % 1 % 02/07/19 14:09 Neutrophils # 4.6 k/uL (1.3-7.7) 02/07/19 14:09 Lymphocytes # 2.7 k/uL (1.0-4.8) 02/07/19 14:09 Monocytes # 0.3 k/uL (0-1.0) 02/07/19 14:09 Eosinophils # 0.1 k/uL (0-0.7) 02/07/19 14:09 Basophils # 0.1 k/uL (0-0.2) 02/07/19 14:09 Sodium 136 mmol/L (137-145) L 02/07/19 14:09 Potassium 4.2 mmol/L (3.5-5.1) 02/07/19 14:09 Chloride 102 mmol/L (98-107) 02/07/19 14:09 Carbon Dioxide 29 mmol/L (22-30) 02/07/19 14:09 Anion Gap 5 mmol/L 02/07/19 14:09 BUN 12 mg/dL (7-17) 02/07/19 14:09 Creatinine 0.52 mg/dL (0.52-1.04) 02/07/19 14:09 Est GFR (CKD-EPI)AfAm >90 (>60 ml/min/1.73 sqM) 02/07/19 14:09 Est GFR (CKD-EPI)NonAf >90 (>60 ml/min/1.73 sqM) 02/07/19 14:09 Glucose 295 mg/dL (74-99) H 02/07/19 14:09 POC Glucose (mg/dL) 105 mg/dL (75-99) H 02/19/19 07:36 POC Glu Metal Hanging Supervisor ID Lizette Lerma 02/19/19 07:[address] Glu mg/dL 220 02/11/19 07:36 Hemoglobin A1c 9.3 % (4.0-6.0) H 02/11/19 07:36 Calcium 9.3 mg/dL (8.4-10.2) 02/07/19 14:09 Total Bilirubin 0.2 mg/dL (0.2-1.3) 02/07/19 14:09 AST 15 U/L (14-36) 02/07/19 14:09 ALT 21 U/L (9-52) 02/07/19 14:09 Alkaline Phosphatase 61 U/L (38-126) 02/07/19 14:09 Total Protein 6.8 g/dL (6.3-8.2) 02/07/19 14:09 Albumin 4.1 g/dL (3.5-5.0) 02/07/19 14:09 Triglycerides 110 mg/dL (<150) 02/11/19 07:35 Cholesterol 99 mg/dL (<200) 02/11/19 07:35 LDL Cholesterol, Calc 38 mg/dL (0-99) 02/11/19 07:35 HDL Cholesterol 39 mg/dL (40-60) L 02/11/19 07:35 TSH 0.748 mIU/L (0.465-4.680) 02/11/19 07:35 Urine Color Yellow 02/18/19 09:15 Urine Appearance Clear (Clear) 02/18/19 09:15 Urine pH 6.0 (5.0-8.0) 02/18/19 09:15 Ur Specific [place] 1.023 (1.001-1.035) 02/18/19 09:15 Urine Protein Negative (Negative) 02/18/19 09:15 Urine Glucose (UA) 2+ (Negative) H 02/18/19 09:15 Urine Ketones 1+ (Negative) H 02/18/19 09:15 Urine Blood Negative (Negative) 02/18/19 09:15 Urine Nitrite Negative (Negative) 02/18/19 09:15 Urine Bilirubin Negative (Negative) 02/18/19 09:15 Urine Urobilinogen <2.0 mg/dL (<2.0) 02/18/19 09:15 Ur Leukocyte Esterase Negative (Negative) 02/18/19 09:15 Urine RBC 33 /hpf (0-5) H 02/07/19 14:00 Urine WBC 15 /hpf (0-5) H 02/07/19 14:00 Ur Squamous Epith Cells 18 /hpf (0-4) H 02/07/19 14:00 Urine Bacteria Moderate /hpf (None) H 02/07/19 14:00 Urine Opiates Screen Not Detected (NotDetected) 02/07/19 14:00 Ur Oxycodone Screen Not Detected (NotDetected) 02/07/19 14:00 Urine Methadone Screen Not Detected (NotDetected) 02/07/19 14:00 Ur Propoxyphene Screen Not Detected (NotDetected) 02/07/19 14:00 Ur Barbiturates Screen Not Detected (NotDetected) 02/07/19 14:00 Valproic Acid 53.3 ug/mL 02/14/19 11:35 U Tricyclic Antidepress Not Detected (NotDetected) 02/07/19 14:00 Ur Phencyclidine Scrn Not Detected (NotDetected) 02/07/19 14:00 Ur Amphetamines Screen Not Detected (NotDetected) 02/07/19 14:00 U Methamphetamines Scrn Not Detected (NotDetected) 02/07/19 14:00 U Benzodiazepines Scrn Not Detected (NotDetected) 02/07/19 14:00 Urine Cocaine Screen Not Detected (NotDetected) 02/07/19 14:00 U Marijuana (THC) Screen Not Detected (NotDetected) 02/07/19 14:00 Vital Signs Temp 97.9 F 02/19/19 06:03 Pulse 79 02/19/19 06:03 Resp 16 02/19/19 06:03 BP 106/73 02/19/19 06:03 Pulse Ox 100 02/10/19 15:00 Intake & Output 02/18/19 02/19/19 02/19/19 18:59 06:59 18:59 Weight 60.2 kg Patient Condition at Discharge: Stable Plan - Discharge Summary New Discharge Prescriptions: New ARIPiprazole [Abilify] 15 mg PO DAILY 14 Days tab ARIPiprazole IM [Abilify Maintena] 400 mg IM QMONTH #1 vial hydrOXYzine HCL [Atarax] 25 mg PO TID PRN #28 tab PRN Reason: Anxiety Divalproex ER [Depakote ER] 1,500 mg PO HS #42 tab.er.24h Melatonin 3 mg PO HS 14 Days tablet QUEtiapine [SEROquel] 50 mg PO HS #5 tab Continue metFORMIN HCL [Glucophage] 500 mg PO BID Insulin Glargine,Hum.rec.anlog [Basaglar Kwikpen U-100] 30 unit SQ HS Omeprazole 20 mg PO DAILY Lipase/Protease/Amylase [Zenpep Dr 25,000 Unit Capsule] 4 cap PO TID Cyanocobalamin (Vitamin B-12) [Vitamin B-12] 5,000 mcg PO DAILY INSULIN ASPART (NovoLOG) [NovoLOG (formulary)] See Protocol SQ AC-TID Gabapentin [Neurontin] 100 mg PO BID #60 cap Nicotine 14Mg/24Hr Patch [Habitrol] 1 patch TRANSDERM DAILY #14 patch Discontinued Ergocalciferol [Vitamin D2 (DRISDOL)] 50,000 unit PO Q7D Divalproex ER [Depakote ER] 500 mg PO BID #60 tab.er.24h QUEtiapine FUMARATE [SEROquel] 300 mg PO HS #30 tablet Discharge Medication List metFORMIN HCL [Glucophage] 500 mg PO BID 05/04/17 [History] Insulin Glargine,Hum.rec.anlog [Basaglar Kwikpen U-100] 30 unit SQ HS 12/13/17 [History] Omeprazole 20 mg PO DAILY 10/12/18 [History] Cyanocobalamin (Vitamin B-12) [Vitamin B-12] 5,000 mcg PO DAILY 01/21/19 [History] INSULIN ASPART (NovoLOG) [NovoLOG (formulary)] See Protocol SQ AC-TID 01/21/19 [History] Lipase/Protease/Amylase [Zenpep Dr 25,000 Unit Capsule] 4 cap PO TID 01/21/19 [History] Gabapentin [Neurontin] 100 mg PO BID #60 cap 01/28/19 [Rx] ARIPiprazole IM [Abilify Maintena] 400 mg IM QMONTH #1 vial 02/19/19 [Rx] ARIPiprazole [Abilify] 15 mg PO DAILY 14 Days tab 02/19/19 [Rx] Divalproex ER [Depakote ER] 1,500 mg PO HS #42 tab.er.24h 02/19/19 [Rx] Melatonin 3 mg PO HS 14 Days tablet 02/19/19 [Rx] Nicotine 14Mg/24Hr Patch [Habitrol] 1 patch TRANSDERM DAILY #14 patch 02/19/19 [Rx] QUEtiapine [SEROquel] 50 mg PO HS #5 tab 02/19/19 [Rx] hydrOXYzine HCL [Atarax] 25 mg PO TID PRN #28 tab 02/19/19 [Rx] Follow up Appointment(s)/Referral(s): [facility] - [facility]-2 days Patient Instructions/Handouts: Bipolar Disorder (DC), Cannabis Abuse (DC), Psychotic Disorder (DC), Suicide Prevention (DC) Activity/Diet/Wound Care/Special Instructions: Activity and diet as tolerated. No guns or weapons in the home. Refrain from alcohol and street drugs not prescribed by your physicians. Take all your medications as prescribed, and attend all your follow up appointments as scheduled. If in need of medication refills, please go to your primary care physicians, or your out patient psychiatrist. If in crisis, please call or go to your nearest ER for an evaluation. Discharge Disposition: HOME SELF-CARE
== END 2019-02-19 11:28 | disposition home or self-care (01) | DRG 885 ==
LOC: EC 11:40 → 3MHU 02-10 14:07
PROVIDERS: ADMIT Psychiatry & Neurology Psychiatry; ATTEND Psychiatry & Neurology Psychiatry
DX: F31.2 Bipolar disorder, current episode manic severe with psychotic features (principal); N39.0 Urinary tract infection, site not specified; E11.40 Type 2 diabetes mellitus with diabetic neuropathy, unspecified; F41.9 Anxiety disorder, unspecified; F12.10 Cannabis abuse, uncomplicated; G47.00 Insomnia, unspecified; F43.10 Post-traumatic stress disorder, unspecified; K21.9 Gastro-esophageal reflux disease without esophagitis; E78.5 Hyperlipidemia, unspecified; I10 Essential (primary) hypertension; F17.210 Nicotine dependence, cigarettes, uncomplicated; Z71.6 Tobacco abuse counseling; Z79.4 Long term (current) use of insulin; Z79.899 Other long term (current) drug therapy; Z91.5 Personal history of self-harm; Z86.73 Personal history of transient ischemic attack (TIA), and cerebral infarction without residual deficits; Z87.19 Personal history of other diseases of the digestive system; Z86.010 Personal history of colon polyps; Z87.440 Personal history of urinary (tract) infections; Z86.14 Personal history of Methicillin resistant Staphylococcus aureus infection; Z90.49 Acquired absence of other specified parts of digestive tract; Z85.819 Personal history of malignant neoplasm of unspecified site of lip, oral cavity, and pharynx; Z87.448 Personal history of other diseases of urinary system; Z98.890 Other specified postprocedural states; Z82.49 Family history of ischemic heart disease and other diseases of the circulatory system; Z83.79 Family history of other diseases of the digestive system; Z81.3 Family history of other psychoactive substance abuse and dependence; Z81.8 Family history of other mental and behavioral disorders
CPT/HCPCS: 36415; 80053; 80061; 80164; 80306; 81001; 81003; 83036; 84443; 85025; 96372; 99285

== ENCOUNTER 2020-09-18 19:08 | Emergency (ER) | payer OTHER ==
[2020-09-18] MEDS ORDERED: MORPHINE SULFATE 4 MG/ML SYRINGE IV STA (20:13)
[2020-09-18] MEDS ORDERED: SODIUM CHLORIDE 0.9% 1,000 ML IV STA (20:13)
[2020-09-18] MEDS ORDERED: ONDANSETRON 4 MG/2 ML VIAL IVP STA (20:13)
[2020-09-18] MEDS ORDERED: ACETAMINOPHEN TAB 500 MG TAB PO STA (20:14)
[2020-09-18 20:15] LABS: Appearance,Urine Clear (Clear); Bilirubin,Urine Negative (Negative); Blood,Urine Trace (Negative); Color,Urine Light Yellow; Glucose,Urine (UA) 4+ (Negative); Hyaline Casts,Urine 6 /lpf (0-2); Ketones,Urine 1+ (Negative); Leukocyte Esterase,Urine Small (Negative); Nitrite,Urine Negative (Negative); PH, Urine 6.5 (5.0-8.0); Protein,Urine Trace (Negative); RBC,Urine 10 /hpf (0-5); Specific Gravity,Urine 1.024 (1.001-1.035); Squamous Epithelial Cell,Urine <1 /hpf (0-4); Urobilinogen,Urine <2.0 mg/dL (<2.0); WBC,Urine 54 /hpf (0-5)
--- NOTE | 2020-09-18 20:18 | ED ---
General Adult HPI - General Chief complaint: Urogenital Stated complaint: rt sided flank pain Time Seen by Provider: 09/18/20 19:50 Source: patient Mode of arrival: ambulatory Limitations: no limitations - History of Present Illness Initial comments: 60-year-old female presents to the emergency room for a chief complaint of abdominal pain. Patient states she has right upper quadrant abdominal pain that radiates to her right upper back. Patient has history of chronic pancreatitis, UTI, diabetes, hyperlipidemia, renal disease. Patient states she has had right upper quadrant pain for the 3-4 days. Nausea no vomiting with this. Patient has not had fevers. No diarrhea. Patient states it feels like when she had kidney failure in the past. She does not feel that this feels like a kidney stone in the past.Patient has no other complaints at this time including shortness of breath, chest pain, vomiting, headache, or visual changes. - Related Data Home Medications Medication Instructions Recorded Confirmed Omeprazole 20 mg PO DAILY 04/05/18 09/18/20 Lipase/Protease/Amylase [Zenpep Dr 4 cap PO AC-TID 01/21/19 09/18/20 25,000 Unit Capsule] ARIPiprazole [Abilify Maintena] 300 mg PO QMONTHLY 09/18/20 09/18/20 Cholecalciferol [Vitamin D3 (25 50 mcg PO DAILY 09/18/20 09/18/20 Mcg = 1000 Iu)] Divalproex ER [Depakote ER] 1,000 mg PO HS 09/18/20 09/18/20 Insulin Glargine [Lantus] 25 unit SQ HS 09/18/20 09/18/20 QUEtiapine [SEROquel] 100 mg PO HS 09/18/20 09/18/20 hydrOXYzine pamoate [hydrOXYzine 25 mg PO BID 09/18/20 09/18/20 PAMOATE] metFORMIN HCL 850 mg PO BID 09/18/20 09/18/20 Previous Rx's Medication Instructions Recorded Cephalexin [Keflex] 500 mg PO Q6HR 14 Days #56 cap 09/19/20 Allergies Allergy/AdvReac Type Severity Reaction Status Date / Time No Known Allergies Allergy Verified 09/18/20 19:39 Review of Systems ROS Statement: Those systems with pertinent positive or pertinent negative responses have been documented in the HPI. ROS Other: All systems not noted in ROS Statement are negative. 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 RT 3RD/4TH FINGER PARTIAL AMP D/T INJURY, lt ureter stent. COLONOSCOPY/POLYPECTOMY Past Anesthesia/Blood Transfusion Reactions: Motion Sickness, Postoperative Nausea & Vomiting (PONV) Past Psychological History: Anxiety, Bipolar, Depression, PTSD, Schizophrenia Smoking Status: Current every day smoker Past Alcohol Use History: None Reported Past Drug Use History: Marijuana, Prescription Drug Abuse - Past Family History Father Family Medical History: Liver Disease Additional Family Medical History / Comment(s): Father at age 78 from cirrhosis of the liver. Mother Additional Family Medical History / Comment(s): Mother is alive in her 80s Sister(s) Family Medical History: Coronary Artery Disease (CAD) Additional Family Medical History / Comment(s): Patient has 2 sisters and one has from an overdose. She has 1 brother with no major medical problems. 4cm aortic aneurysm General Exam Limitations: no limitations General appearance: alert, in no apparent distress Head exam: Present: atraumatic, normocephalic, normal inspection Eye exam: Present: normal appearance, PERRL, EOMI. Absent: scleral icterus, conjunctival injection, periorbital swelling ENT exam: Present: normal exam, mucous membranes moist Neck exam: Present: normal inspection, full ROM. Absent: tenderness, meningismus, lymphadenopathy Respiratory exam: Present: normal lung sounds bilaterally. Absent: respiratory distress, wheezes, rales, rhonchi, stridor Cardiovascular Exam: Present: regular rate, normal rhythm, normal heart sounds. Absent: systolic murmur, diastolic murmur, rubs, gallop, clicks GI/Abdominal exam: Present: soft, tenderness (Right upper quadrant tenderness), normal bowel sounds. Absent: distended, guarding, rebound, rigid Back exam: Present: CVA tenderness (R). Absent: CVA tenderness (L) Course Vital Signs 09/18/20 09/18/20 09/18/20 19:35 20:13 23:00 Temperature 98.3 F 101.1 F H 100.8 F H Pulse Rate 91 98 Respiratory 18 20 Rate Blood Pressure 113/82 97/65 O2 Sat by Pulse 99 99 Oximetry Medical Decision Making - Medical Decision Making Vitals are stable. Patient's blood pressure is normal for her upon review of previous vitals. She does have a fever. HPI physical exam as documented. She does have right upper quadrant tenderness as well as right flank pain. CBC does show leukocytosis. CMP reveals hyperglycemia, patient is a diabetic. She was given fluids and insulin. Urinalysis did show evidence of infection. Culture pending. Initially ultrasound was obtained that did not reveal cholelithiasis or acute cholecystitis. Given evidence of urinary tract infection with right CVA tenderness I did obtain a computed tomography scan to rule out stone. There is moderate right-sided perinephric fluid and fat stranding. No significant hydronephrosis. There could be a degree of obstruction given larger, this is close to renal hilum however without hydronephrosis I think it is more likely that this is related to pyelonephritis. Patient was given Rocephin. He will be treated with Keflex. Patient also tested positive for covid. She did qualify for antibodies. At this time patient is stable for discharge. She will follow- up with her doctor return for any worsening symptoms. - Lab Data Result diagrams: 09/18/20 20:58 09/18/20 20:58 Lab Results 09/18/20 09/18/20 09/18/20 Range/Units 19:56 20:58 20:58 WBC 12.4 H (3.8-10.6) k/uL RBC 3.92 (3.80-5.40) m/uL Hgb 11.7 (11.4-16.0) gm/dL Hct 34.3 (34.0-46.0) % MCV 87.5 (80.0-100.0) fL MCH 29.9 (25.0-35.0) pg MCHC 34.2 (31.0-37.0) g/dL RDW 15.2 (11.5-15.5) % Plt Count 472 H (150-450) k/uL MPV 7.1 Neutrophils % 70 % Lymphocytes % 23 % Monocytes % 5 % Eosinophils % 1 % Basophils % 1 % Neutrophils # 8.6 H (1.3-7.7) k/uL Lymphocytes # 2.8 (1.0-4.8) k/uL Monocytes # 0.6 (0-1.0) k/uL Eosinophils # 0.1 (0-0.7) k/uL Basophils # 0.1 (0-0.2) k/uL Sodium 132 L (137-145) mmol/L Potassium 4.5 (3.5-5.1) mmol/L Chloride 95 L (98-107) mmol/L Carbon Dioxide 28 (22-30) mmol/L Anion Gap 9 mmol/L BUN 13 (7-17) mg/dL Creatinine 0.68 (0.52-1.04) mg/dL Est GFR (CKD-EPI)AfAm >90 (>60 ml/min/1.73 sqM) Est GFR (CKD-EPI)NonAf >90 (>60 ml/min/1.73 sqM) Glucose 364 H (74-99) mg/dL POC Glucose (mg/dL) (75-99) mg/dL POC Glu Toilet And Laundry Soap Supervisor ID Plasma Lactic Acid Timi (0.7-2.0) mmol/L Calcium 9.1 (8.4-10.2) mg/dL Total Bilirubin 0.2 (0.2-1.3) mg/dL AST 12 L (14-36) U/L ALT 6 (4-34) U/L Alkaline Phosphatase 111 (38-126) U/L Total Protein 6.5 (6.3-8.2) g/dL Albumin 3.3 L (3.5-5.0) g/dL Amylase 33 (30-110) U/L Lipase <10 L (23-300) U/L Urine Color Light Yellow Urine Appearance Clear (Clear) Urine pH 6.5 (5.0-8.0) Ur Specific [place] 1.024 (1.001-1.035) Urine Protein Trace H (Negative) Urine Glucose (UA) 4+ H (Negative) Urine Ketones 1+ H (Negative) Urine Blood Trace H (Negative) Urine Nitrite Negative (Negative) Urine Bilirubin Negative (Negative) Urine Urobilinogen <2.0 (<2.0) mg/dL Ur Leukocyte Esterase Small H (Negative) Urine RBC 10 H (0-5) /hpf Urine WBC 54 H (0-5) /hpf Ur Squamous Epith Cells <1 (0-4) /hpf Hyaline Casts 6 H (0-2) /lpf Coronavirus (PCR) (Not Detectd) 09/18/20 09/18/20 09/18/20 Range/Units 20:58 20:58 22:48 WBC (3.8-10.6) k/uL RBC (3.80-5.40) m/uL Hgb (11.4-16.0) gm/dL Hct (34.0-46.0) % MCV (80.0-100.0) fL MCH (25.0-35.0) pg MCHC (31.0-37.0) g/dL RDW (11.5-15.5) % Plt Count (150-450) k/uL MPV Neutrophils % % Lymphocytes % % Monocytes % % Eosinophils % % Basophils % % Neutrophils # (1.3-7.7) k/uL Lymphocytes # (1.0-4.8) k/uL Monocytes # (0-1.0) k/uL Eosinophils # (0-0.7) k/uL Basophils # (0-0.2) k/uL Sodium (137-145) mmol/L Potassium (3.5-5.1) mmol/L Chloride (98-107) mmol/L Carbon Dioxide (22-30) mmol/L Anion Gap mmol/L BUN (7-17) mg/dL Creatinine (0.52-1.04) mg/dL Est GFR (CKD-EPI)AfAm (>60 ml/min/1.73 sqM) Est GFR (CKD-EPI)NonAf (>60 ml/min/1.73 sqM) Glucose (74-99) mg/dL POC Glucose (mg/dL) 364 H (75-99) mg/dL POC Glu Toilet And Laundry Soap Supervisor ID Plasma Lactic Acid Timi 1.1 (0.7-2.0) mmol/L Calcium (8.4-10.2) mg/dL Total Bilirubin (0.2-1.3) mg/dL AST (14-36) U/L ALT (4-34) U/L Alkaline Phosphatase (38-126) U/L Total Protein (6.3-8.2) g/dL Albumin (3.5-5.0) g/dL Amylase (30-110) U/L Lipase (23-300) U/L Urine Color Urine Appearance (Clear) Urine pH (5.0-8.0) Ur Specific [place] (1.001-1.035) Urine Protein (Negative) Urine Glucose (UA) (Negative) Urine Ketones (Negative) Urine Blood (Negative) Urine Nitrite (Negative) Urine Bilirubin (Negative) Urine Urobilinogen (<2.0) mg/dL Ur Leukocyte Esterase (Negative) Urine RBC (0-5) /hpf Urine WBC (0-5) /hpf Ur Squamous Epith Cells (0-4) /hpf Hyaline Casts (0-2) /lpf Coronavirus (PCR) Detected A (Not Detectd) Disposition Clinical Impression: Pyelonephritis, COVID-19 Disposition: HOME SELF-CARE Condition: Good Instructions (If sedation given, give patient instructions): Kidney Infection (ED), Coronavirus Disease 2019 (COVID-19) Additional Instructions: Please follow up with primary care in 1-2 days. Take antibiotic as directed. Return to the emergency room for any worsening symptoms. Prescriptions: Cephalexin [Keflex] 500 mg PO Q6HR 14 Days #56 cap Is patient prescribed a controlled substance at d/c from ED?: No Referrals: Cecilia Cortez MD [Primary Care Provider] - 1-2 days Time of Disposition: 00:07
[2020-09-18 21:16] LABS: Basophils # (A) 0.1 k/uL (0-0.2); Basophils % (A) 1 %; Eosinophils # (A) 0.1 k/uL (0-0.7); Eosinophils % (A) 1 %; HCT 34.3 % (34.0-46.0); HGB 11.7 gm/dL (11.4-16.0); Lymphocytes # (A) 2.8 k/uL (1.0-4.8); Lymphocytes % (A) 23 %; MCH 29.9 pg (25.0-35.0); MCHC 34.2 g/dL (31.0-37.0); MCV 87.5 fL (80.0-100.0); Mean Platelet Volume 7.1; Monocytes # (A) 0.6 k/uL (0-1.0); Monocytes % (A) 5 %; Neutrophils # (A) 8.6 k/uL (1.3-7.7); Neutrophils % (A) 70 %; Platelet Count 472 k/uL (150-450); RBC 3.92 m/uL (3.80-5.40); RDW 15.2 % (11.5-15.5); WBC 12.4 k/uL (3.8-10.6)
[2020-09-18 21:25] LABS: ALT 6 U/L (4-34); AST 12 U/L (14-36); African American GFR (CKD) >90 (>60 ml/min/1.73 sqM); Albumin 3.3 g/dL (3.5-5.0); Alkaline Phosphatase 111 U/L (38-126); Amylase 33 U/L (30-110); Anion Gap 9 mmol/L; Blood Urea Nitrogen 13 mg/dL (7-17); Calcium 9.1 mg/dL (8.4-10.2); Carbon Dioxide 28 mmol/L (22-30); Chloride 95 mmol/L (98-107); Glucose 364 mg/dL (74-99); Lipase <10 U/L (23-300); Non-African American GFR(CKD) >90 (>60 ml/min/1.73 sqM); Potassium 4.5 mmol/L (3.5-5.1); Sodium 132 mmol/L (137-145); Total Bilirubin 0.2 mg/dL (0.2-1.3); Total Protein 6.5 g/dL (6.3-8.2)
--- NOTE | 2020-09-18 21:35 | XR ---
EXAM: Abdomen radiograph. HISTORY: Pain. TECHNIQUE: Upright AP view. COMPARISON: 11/25/2018 FINDINGS: There are nondilated bowel loops with a nonobstructive pattern. There are no pathologic calcification s. No acute osseous abnormality seen. Moderate colonic stool burden. No free air. IMPRESSION: Nonobstructive bowel gas pattern. Moderate stool burden.
--- NOTE | 2020-09-18 21:50 | US ---
EXAMINATION TYPE: US gallbladder DATE OF EXAM: 09/18/2020 COMPARISON: CT 2019 CLINICAL HISTORY: RUQ pain, fever. EXAM MEASUREMENTS: Liver Length: 16.9 cm Gallbladder Wall: 0.2 cm CBD: 0.5 cm Right Kidney: 10.3 x 5.4 x 6.2 cm Pancreas: not well visualized Liver: wnl Gallbladder: No stones seen Evidence for sonographic Yi's sign: Yes CBD: wnl Right Kidney: soft tissue density measuring 2.9 x 3.4 x 2.2 cm, regular tissue versus mass. 1.6 x 1. 6 x 1.7 cm lower/lateral cyst. IMPRESSION: Reported positive sonographic sign without sonographic evidence of cholelithiasis or acute cholecysti tis. Questionable right renal lesion without correlate on previous CT. Consider follow-up CT for further e valuation. Stable right renal cyst.
--- NOTE | 2020-09-18 22:38 | CT ---
EXAMINATION TYPE: CT abdomen pelvis wo con DATE OF EXAM: 09/18/2020 COMPARISON: 11/25/2018 HISTORY: flank pain CT DLP: 369 mGycm Automated exposure control for dose reduction was used. There is some mild linear density right lung base related to subsegmental atelectasis. Heart size is normal. There is no pericardial effusion. Liver spleen stomach gallbladder appear intact. There are numerous pancreatic calcifications consiste nt with chronic pancreatitis. These measure up to 2 cm. There is no adrenal mass. There is some hypertrophy of the left adrenal gland that measures 2.6 x 1.3 cm. There is fat stranding and fluid around the right kidney. There is 1 cm calculus at the right renal p [place]. There is 2 cm cystic area interpolar right kidney. There is 4 mm calculus towards the lower po le of the right kidney. There is 3 mm calculus lower pole left kidney. There is no significant retrop eritoneal adenopathy. I do not see significant enlargement of the renal calyces of the right kidney. The ureters do not appear dilated. The bladder distends smoothly. There is no inguinal hernia. There is no free fluid in the pelvis. There is no mesenteric edema. There is no ascites or free air. There is no bowel obstruction. There i s no sign of thickened appendix. Lumbar vertebra have normal alignment. There is no compression fract ure. Posterior elements are intact. Facet joints are intact. Bony pelvis is intact. IMPRESSION: There is moderate right-sided perinephric fluid and fat stranding. No significant hydronephrosis seen however. There are right renal calculi. The larger calculus could be producing some degree of obstru ction since it is located close to the renal hilum. I would also consider acute pyelonephritis. Nonobstructing small left renal calculus. Extensive pancreatic calcifications consistent with significant chronic pancreatitis unchanged. The r ight side significant perinephric fluid is new compared to old exam.
[2020-09-18 22:51] LABS: Glucose,Whole Blood 364 mg/dL (75-99)
[2020-09-18 23:07] VITALS: RESP 20
[2020-09-18] MEDS ORDERED: INSULIN REGULAR 100 UNIT/ML VIAL IV STA (23:10)
[2020-09-18] MEDS ORDERED: INSULIN REGULAR 100 UNIT/ML VIAL SQ STA (23:10)
[2020-09-18] MEDS ORDERED: cefTRIAXone IN SWFI 1,000 MG/10 ML SYRINGE IVP STA (23:10)
[2020-09-18] MEDS ORDERED: KETOROLAC 15 MG/ML 1 ML VIAL IVP STA (23:18)
[2020-09-18] MEDS ORDERED: BAMLANIVIMAB 700 MG in SODIUM CHLORIDE 0.9% 50 ML IVPB ONE (23:45)
[2020-09-19] MEDS ORDERED: CEPHALEXIN 500MG STARTER PACK 4 CAP BTL PO STA (00:10)
[2020-09-19 00:20] VITALS: TEMP 98.9
[2020-09-19 01:05] VITALS: BP 99/56; PULSE 82
== END 2020-09-19 01:05 | disposition home or self-care (01) ==
LOC: EC 19:08
DX: N12 Tubulo-interstitial nephritis, not specified as acute or chronic (principal); U07.1 COVID-19; F31.9 Bipolar disorder, unspecified; E11.65 Type 2 diabetes mellitus with hyperglycemia; F41.9 Anxiety disorder, unspecified; F17.200 Nicotine dependence, unspecified, uncomplicated; E11.40 Type 2 diabetes mellitus with diabetic neuropathy, unspecified; K21.9 Gastro-esophageal reflux disease without esophagitis; E78.5 Hyperlipidemia, unspecified; Z79.4 Long term (current) use of insulin; Z79.899 Other long term (current) drug therapy; Z86.14 Personal history of Methicillin resistant Staphylococcus aureus infection; Z90.49 Acquired absence of other specified parts of digestive tract; Z85.21 Personal history of malignant neoplasm of larynx; Z86.73 Personal history of transient ischemic attack (TIA), and cerebral infarction without residual deficits
CPT/HCPCS: 36415; 80053; 82150; 83605; 83690; 85025; 81001; 87086; 87635; 74018; 76705; 74176; 99284; 96374; 96375 ×4; 96361; J2270; J2405; J0696; J1885; Q0239

== ENCOUNTER 2020-10-14 09:19 | Day surgery (SDC) | payer OTHER ==
[2020-10-11 12:49] VITALS: BMI 20.5
--- NOTE | 2020-10-13 12:15 | P.GSHP ---
History of Present Illness H&P Date: 10/08/20 Chief Complaint: Right renal colic The patient is a 60-year-old white female with a history of urolithiasis. She has recently experienced right-sided abdominal and flank pain. Computed tomography scan shows a 1 cm right renal pelvic calculus, along with a 4 mm right lower pole renal calculus and a 3 mm left lower pole renal calculus. Fat stranding around the right kidney is also noted. - Constitutional Constitutional: Reports fever - Gastrointestinal Gastrointestinal: Reports diarrhea, Reports nausea - Genitourinary (Female) Genitourinary: Reports flank pain, Reports kidney stones, Denies hematuria Past Medical History Past Medical History: Cancer, CVA/TIA, Diabetes Mellitus, GERD/Reflux, Hyperlipidemia, Renal Disease Additional Past Medical History / Comment(s): Chronic pancreatitis,wt loss of 60-70 pounds over last year, HEART MURMUR AND ENLARGED AORTA, tia's, colon polyps-benign, "blood pressure tends to run low ended up in ICU" pt states recent UTI treated,merle neuropathy,throat CA at age 6,chronic bronchitis History of Any Multi-Drug Resistant Organisms: MRSA Date of last positivie culture/infection: 2015 MDRO Source:: face Past Surgical History: Appendectomy Additional Past Surgical History / Comment(s): CYST REMOVED FROM NECK. RT 3RD/4TH FINGER PARTIAL AMP D/T INJURY, lt ureter stent. COLONOSCOPY/POLYPECTOMY Past Anesthesia/Blood Transfusion Reactions: Motion Sickness, Postoperative Nausea & Vomiting (PONV) Past Psychological History: Anxiety, Bipolar, Depression, PTSD, Schizophrenia Smoking Status: Current every day smoker Past Alcohol Use History: None Reported Past Drug Use History: Marijuana, Prescription Drug Abuse - Past Family History Father Family Medical History: Liver Disease Additional Family Medical History / Comment(s): Father at age 78 from cirrhosis of the liver. Mother Additional Family Medical History / Comment(s): Mother is alive in her 80s Sister(s) Family Medical History: Coronary Artery Disease (CAD) Additional Family Medical History / Comment(s): Patient has 2 sisters and one has from an overdose. She has 1 brother with no major medical problems. 4cm aortic aneurysm Medications and Allergies Home Medications Medication Instructions Recorded Confirmed Type Omeprazole 20 mg PO DAILY 04/05/18 10/11/20 History Lipase/Protease/Amylase [Zenpep Dr 4 cap PO AC-TID 01/21/19 10/11/20 History 25,000 Unit Capsule] Insulin Glargine [Lantus] 25 unit SQ HS 09/18/20 10/11/20 History QUEtiapine [SEROquel] 100 mg PO HS 09/18/20 10/11/20 History hydrOXYzine pamoate [hydrOXYzine 25 mg PO BID 09/18/20 10/11/20 History PAMOATE] metFORMIN HCL 850 mg PO BID 09/18/20 10/11/20 History Cephalexin [Keflex] 500 mg PO Q6HR 14 Days #56 cap 09/19/20 10/11/20 Rx Acetaminophen [Tylenol Extra 1,000 mg PO DIRECTED PRN 10/11/20 10/11/20 Hist ory Strength] Aspirin 650 mg PO DIRECTED PRN 10/11/20 10/11/20 History Divalproex Sodium [Depakote] 1,000 mg PO HS 10/11/20 10/11/20 History Ibuprofen [Motrin Ib] 400 mg PO DIRECTED PRN 10/11/20 10/11/20 History Allergies Allergy/AdvReac Type Severity Reaction Status Date / Time No Known Allergies Allergy Verified 10/11/20 12:13 Surgical - Exam - General well developed, well nourished, no distress - Neck no masses, trachea midline - Respiratory normal respiratory effort, clear to auscultation - Cardiovascular Rhythm: regular Abnormal Heart Sounds: no systolic murmur, no diastolic murmur, no rub, no S3 Gallop, no S4 Gallop, no click, no other - Abdomen Abdomen: soft, non tender, no guarding, no rigid, no rebound - Psychiatric oriented to time, oriented to person, oriented to place, speech is normal, memory intact Results - Imaging CT scan - abdomen: report reviewed, image reviewed Assessment and Plan (1) Calculus of kidney Status: Acute Code(s): N20.0 - CALCULUS OF KIDNEY SNOMED Code(s): 64199736 Plan: The patient's right renal pelvic calculus is visible on a plain radiograph, we discussed the pros and cons of ESWL versus ureteroscopy with laser lithotripsy. Given her history of chronic pancreatitis, I feel it is best to avoid ESWL. She has undergone ureteroscopy with laser lithotripsy in the past and is thus familiar with the procedure. She is aware of potential risks, which include anesthesia, bleeding, infection, ureteral injury, and inability to successfully fragment the right renal calculi. She is aware of the need for a ureteral stent postoperatively, as well as the possible need for a secondary procedure.
[2020-10-14] MEDS ORDERED: LACTATED RINGERS 1,000 ML IV ONE (09:46)
[2020-10-14 09:52] LABS: Glucose,Whole Blood 277 mg/dL (75-99)
[2020-10-14] MEDS ORDERED: ONDANSETRON 4 MG/2 ML VIAL ONE (09:52)
[2020-10-14] MEDS ORDERED: ONDANSETRON 4 MG/2 ML VIAL IVP ONE (09:54)
[2020-10-14] MEDS ORDERED: INSULIN ASPART (NovoLOG) 100 UNIT/ML VIAL SQ ONE (09:57)
[2020-10-14] MEDS ORDERED: PROPOFOL 10 MG/ML 20 ML VIAL IV ONE (10:31)
[2020-10-14] MEDS ORDERED: PHENYLEPHRINE-0.9% NACL SYG 1,000 MCG/10 ML SYRINGE ONE (10:31)
[2020-10-14] MEDS ORDERED: LIDOCAINE 1% INJ 10MG/ML (20 ML MDV) ONE (10:31)
[2020-10-14] MEDS ORDERED: fentaNYL (PF) 50 MCG/ML 2 ML AMP ONE (10:31)
[2020-10-14] MEDS ORDERED: MIDAZOLAM 2 MG/2 ML VIAL ONE (10:31)
--- NOTE | 2020-10-14 11:46 | P.OP ---
Date of Procedure: 10/14/20 Preoperative Diagnosis: Right renal calculi Postoperative Diagnosis: Right renal calculus Procedure(s) Performed: Cystoscopy, right ureteroscopy with Holmium laser lithotripsy, right ureteral stent insertion Anesthesia: KEALA Surgeon: Manjit Comer Estimated Blood Loss (ml): 5 IV fluids (ml): 500 Pathology: none sent Condition: stable Disposition: PACU Indications for Procedure: The patient is a 60-year-old white female with a history of urolithiasis. She has recently experienced right-sided abdominal and flank pain. CT scan shows a 1 cm right renal pelvic calculus, along with a 4 mm right lower pole renal calculus and a 3 mm left lower pole renal calculus. Fat stranding around the right kidney is also noted. Operative Findings: 1 cm right renal pelvic calculus, fragmented completely. A second calculus was not seen. Description of Procedure: The patient was taken to the operating room and placed in the dorsolithotomy position, with legs supported in Sudeep stirrups. The external genitalia was prepped and draped sterilely. The 30 lens was used to introduce the 21-Chadian Holly cystoscopic sheath through the urethra and into the bladder under direct vision. The bladder was examined in its entirety. Both ureteral orifices were normal anatomic location and configuration. No tumors or foreign bodies were seen. A 0.038 inch Glidewire was passed through the cystoscope. The ureteral orifice was cannulated, and the Glidewire was advanced up to the renal pelvis. The cystoscope was removed, and an 11/13-Chadian ureteral access catheter was passed over the wire, up to the proximal ureter. The Cobra flexible ureteroscope was then passed through the ureteral access catheter sheath, up to the stone. The 272 micron Holmium laser probe was passed through the ureteroscope, and lithotripsy was performed using primarily a dusting mode. After the calculus fragmented, the remaining fragments were popcornend, leaving no residual calculus fragments exceeding the size of the laser fiber tip. Each calyx was examined, but no additional calculi were seen. The ureteroscope was slowly withdrawn under direct vision. There was no evidence of ureteral trauma. The Glidewire was passed through the ureteroscope and up to the right renal pelvis. After removing the ureteroscope, the Glidewire was backloaded into the cystoscope, which was passed into the bladder. A 24 cm, 4.8-Chadian double-J ureteral stent was placed over the wire. Proper stent positioning was verified fluoroscopically and endoscopically.. The bladder was emptied and the cystoscope removed. The patient tolerated the procedure well and was taken to the recovery room in stable condition. MOHIT GONZALEZGabino Report: Procedure Acuity: Elective Stone Size and Location: 1 cm, right renal pelvis Ureteral Dilation: No Ureteral Access Sheath Used: Yes Stone Sent for Analysis: No All Stones/Fragments Were Removed with a Basket: No Complications: No Preoperative Antibiotics Given: Yes Stent Placed: Yes If Stent Placed, Was String Left Attached: No If Stent Placed, When is it to be Removed: 2 weeks Discharge Medications: Toradol, Detrol LA
[2020-10-14 11:53] VITALS: TEMP 97.5
[2020-10-14] MEDS ORDERED: KETOROLAC 15 MG/ML 1 ML VIAL IVP ONE (11:57)
[2020-10-14] MEDS ORDERED: HYDROmorphone 0.5 MG/0.5 ML SYRINGE IVP ONE (12:00)
--- NOTE | 2020-10-14 12:52 | FL ---
EXAMINATION TYPE: FL fluoroscopy <1hr DATE OF EXAM: 10/14/2020 COMPARISON: NONE HISTORY: Kidney stone with stent placement Fluoroscopy support supplied to the referring clinician. See dictated report from urology, 38 second s fluoroscopy time, single intraoperative image documents the procedure
[2020-10-14 13:10] VITALS: BP 155/89; PULSE 78; RESP 18
== END 2020-10-14 13:10 | disposition home or self-care (01) ==
LOC: OR 09:19
PROVIDERS: ATTEND Urology
DX: N20.0 Calculus of kidney (principal); K21.9 Gastro-esophageal reflux disease without esophagitis; E78.5 Hyperlipidemia, unspecified; Z86.73 Personal history of transient ischemic attack (TIA), and cerebral infarction without residual deficits; K86.1 Other chronic pancreatitis; R01.1 Cardiac murmur, unspecified; I77.89 Other specified disorders of arteries and arterioles; Z86.010 Personal history of colon polyps; Z87.440 Personal history of urinary (tract) infections; E11.40 Type 2 diabetes mellitus with diabetic neuropathy, unspecified; Z87.891 Personal history of nicotine dependence; F20.9 Schizophrenia, unspecified; Z85.21 Personal history of malignant neoplasm of larynx; F41.9 Anxiety disorder, unspecified; F32.9 Major depressive disorder, single episode, unspecified; J42 Unspecified chronic bronchitis; F31.9 Bipolar disorder, unspecified; F43.10 Post-traumatic stress disorder, unspecified; Z86.14 Personal history of Methicillin resistant Staphylococcus aureus infection; Z98.890 Other specified postprocedural states; Z89.021 Acquired absence of right finger(s); Z90.89 Acquired absence of other organs; Z97.2 Presence of dental prosthetic device (complete) (partial); Z83.79 Family history of other diseases of the digestive system; Z82.49 Family history of ischemic heart disease and other diseases of the circulatory system; Z79.82 Long term (current) use of aspirin; Z79.4 Long term (current) use of insulin; Z79.899 Other long term (current) drug therapy; Z87.442 Personal history of urinary calculi
CPT/HCPCS: 52356; 81025; C2625; C1769; J2250; J2405; J0690; J2001; J3010; J1885; J2370; J2704; J1170; 76000

== ENCOUNTER 2021-06-30 14:33 | Emergency (ER) | payer OTHER ==
[2021-06-30 14:38] VITALS: TEMP 97.4
[2021-06-30] MEDS ORDERED: ONDANSETRON 4 MG/2 ML VIAL IVP STA ×2 (15:03→15:51)
[2021-06-30] MEDS ORDERED: SODIUM CHLORIDE 0.9% 500 ML 500 ML IV STA (15:03)
--- NOTE | 2021-06-30 15:12 | ED ---
General Adult HPI - General Chief complaint: Dizziness Stated complaint: Syncope Time Seen by Provider: 06/30/21 14:35 Source: patient, EMS, RN notes reviewed, old records reviewed Mode of arrival: EMS Limitations: no limitations - History of Present Illness Initial comments: This is a 60-year-old female presents to the emergency room with a past medical history significant for diabetes pancreatitis and continues to smoke. Patient states she became severely nauseated approximate 2 hours ago and became very dizzy where she had to hold onto something to walk. Patient states she also became very sweaty at that time. Patient states he states there is no chest pain or palpitations. Patient denies shortness of breath or difficulty breathing. Patient denies any fever chills or cough. Patient states the dizziness seems to have improved a little. Patient states she never vomited but she does still feel nauseous. Patient states she's not vaccinated for COVID. Patient denies any near syncopal or syncopal episode. Patient denies any headache patient denies any numbness or focal weakness - Related Data Home Medications Medication Instructions Recorded Confirmed Omeprazole 20 mg PO DAILY 04/05/18 10/11/20 Lipase/Protease/Amylase [Zenpep Dr 4 cap PO AC-TID 01/21/19 10/11/20 25,000 Unit Capsule] Insulin Glargine [Lantus] 25 unit SQ HS 09/18/20 10/11/20 QUEtiapine [SEROquel] 100 mg PO HS 09/18/20 10/11/20 hydrOXYzine pamoate [hydrOXYzine 25 mg PO BID 09/18/20 10/11/20 PAMOATE] metFORMIN HCL [Glucophage] 850 mg PO BID 09/18/20 10/11/20 Acetaminophen [Tylenol Extra 1,000 mg PO DIRECTED PRN 10/11/20 10/11/20 Strength] Aspirin 650 mg PO DIRECTED PRN 10/11/20 10/11/20 Divalproex Sodium [Depakote] 1,000 mg PO HS 10/11/20 10/11/20 Ibuprofen [Motrin Ib] 400 mg PO DIRECTED PRN 10/11/20 10/11/20 Previous Rx's Medication Instructions Recorded Cephalexin [Keflex] 500 mg PO Q6HR 14 Days #56 cap 09/19/20 Ketorolac [Toradol] 10 mg PO Q6HR PRN #12 tab 10/14/20 Oxybutynin Chloride 5 mg PO TID #63 tab 10/14/20 Tolterodine ER [Detrol LA] 4 mg PO DAILY #21 cap.er.24h 10/14/20 Sulfamethox-Tmp 800-160Mg [Bactrim 1 each PO Q12HR #14 tab 06/30/21 DS 800-160 mg] Allergies Allergy/AdvReac Type Severity Reaction Status Date / Time No Known Allergies Allergy Verified 06/30/21 18:39 Review of Systems ROS Statement: Those systems with pertinent positive or pertinent negative responses have been documented in the HPI. ROS Other: All systems not noted in ROS Statement are negative. Past Medical History Past Medical History: Cancer, CVA/TIA, Diabetes Mellitus, GERD/Reflux, Hyperli pidemia, Renal Disease Additional Past Medical History / Comment(s): Chronic pancreatitis,wt loss of 60-70 pounds over last year, HEART MURMUR AND ENLARGED AORTA, tia's, colon polyps-benign, "blood pressure tends to run low ended up in ICU" pt states recent UTI treated,merle neuropathy,throat CA at age 6,chronic bronchitis History of Any Multi-Drug Resistant Organisms: MRSA Date of last positivie culture/infection: 2015 MDRO Source:: face Past Surgical History: Appendectomy Additional Past Surgical History / Comment(s): CYST REMOVED FROM NECK. RT 3RD/4TH FINGER PARTIAL AMP D/T INJURY, lt ureter stent. COLONOSCOPY/POLYPECTOMY Past Anesthesia/Blood Transfusion Reactions: Motion Sickness, Postoperative Nausea & Vomiting (PONV) Past Psychological History: Anxiety, Bipolar, Depression, PTSD, Schizophrenia Smoking Status: Current every day smoker Past Alcohol Use History: None Reported Past Drug Use History: Marijuana, Prescription Drug Abuse - Past Family History Father Family Medical History: Liver Disease Additional Family Medical History / Comment(s): Father at age 78 from cirrhosis of the liver. Mother Family Medical History: No Reported History Additional Family Medical History / Comment(s): Mother is alive in her 80s Sister(s) Family Medical History: Coronary Artery Disease (CAD) Additional Family Medical History / Comment(s): Patient has 2 sisters and one has from an overdose. She has 1 brother with no major medical problems. 4cm aortic aneurysm General Exam - General Exam Comments Initial Comments: GENERAL: Patient is cachectic in appearance. Patient is nontoxic and well-hydrated and is in mild distress. ENT: Neck is soft and supple. No significant lymphadenopathy is noted. Oropharynx is clear. Moist mucous membranes. Neck has full range of motion without eliciting any pain. EYES: The sclera were anicteric and conjunctiva were pink and moist. Extraocular movements were intact and pupils were equal round and reactive to light. Eyelids were unremarkable. PULMONARY: Unlabored respirations. Good breath sounds bilaterally. No audible rales rhonchi or wheezing was noted. CARDIOVASCULAR: There is a regular rate and rhythm without any murmurs gallops or rubs. ABDOMEN: Soft and nontender with normal bowel sounds. SKIN: Skin is clear with no lesions or rashes and otherwise unremarkable. NEUROLOGIC: Patient is alert and oriented x3. Cranial nerves II through XII are grossly intact. Motor and sensory are also intact. Normal speech, volume and content. Symmetrical smile. MUSCULOSKELETAL: Normal extremities with adequate strength and full range of motion. No lower extremity swelling or edema. No calf tenderness. LYMPHATICS: No significant lymphadenopathy is noted PSYCHIATRIC: Normal psychiatric evaluation. Limitations: no limitations Course Vital Signs 06/30/21 06/30/21 14:34 17:25 Temperature 97.4 F L Pulse Rate 73 80 Respiratory 16 18 Rate Blood Pressure 154/96 104/75 O2 Sat by Pulse 100 98 Oximetry Medical Decision Making - Medical Decision Making EKG shows normal sinus rhythm at 71 bpm ME interval 140 dresses 88 QT interval 380 QTC is 412 per patient's EKG shows no ST segment elevation or depression. Patient received magnesium for the hypomagnesemia and Rocephin for the urinary tract infection. Patient ambulate around the ER and was asymptomatic. - Lab Data Result diagrams: 06/30/21 15:11 06/30/21 15:11 Lab Results 06/30/21 06/30/21 06/30/21 Range/Units 15:11 15:11 15:11 WBC 12.5 H (3.8-10.6) k/uL RBC 4.50 (3.80-5.40) m/uL Hgb 14.0 (11.4-16.0) gm/dL Hct 43.0 (34.0-46.0) % MCV 95.7 (80.0-100.0) fL MCH 31.1 (25.0-35.0) pg MCHC 32.5 (31.0-37.0) g/dL RDW 13.3 (11.5-15.5) % Plt Count 359 (150-450) k/uL MPV 9.4 Neutrophils % (Manual) 51 % Lymphocytes % (Manual) 48 % Monocytes % (Manual) 1 % Neutrophils # (Manual) 6.38 (1.3-7.7) k/uL Lymphocytes # (Manual) 6.00 H (1.0-4.8) k/uL Monocytes # (Manual) 0.13 (0-1.0) k/uL Nucleated RBCs 0 (0-0) /100 WBC Polychromasia Present PT 10.0 (9.0-12.0) sec INR 0.9 (<1.2) APTT 24.9 (22.0-30.0) sec Sodium 131 L (137-145) mmol/L Potassium 4.1 (3.5-5.1) mmol/L Chloride 103 (98-107) mmol/L Carbon Dioxide 17 L (22-30) mmol/L Anion Gap 11 mmol/L BUN 12 (7-17) mg/dL Creatinine 0.70 (0.52-1.04) mg/dL Est GFR (CKD-EPI)AfAm >90 (>60 ml/min/1.73 sqM) Est GFR (CKD-EPI)NonAf >90 (>60 ml/min/1.73 sqM) Glucose 304 H (74-99) mg/dL Calcium 9.4 (8.4-10.2) mg/dL Magnesium 1.3 L (1.6-2.3) mg/dL Total Bilirubin 0.4 (0.2-1.3) mg/dL AST 15 (14-36) U/L ALT 17 (4-34) U/L Alkaline Phosphatase 104 (38-126) U/L Troponin I (0.000-0.034) ng/mL Total Protein 6.6 (6.3-8.2) g/dL Albumin 3.9 (3.5-5.0) g/dL Amylase 38 (30-110) U/L Lipase <10 L (23-300) U/L Urine Color Urine Appearance (Clear) Urine pH (5.0-8.0) Ur Specific Evergreen (1.001-1.035) Urine Protein (Negative) Urine Glucose (UA) (Negative) Urine Ketones (Negative) Urine Blood (Negative) Urine Nitrite (Negative) Urine Bilirubin (Negative) Urine Urobilinogen (<2.0) mg/dL Ur Leukocyte Esterase (Negative) Urine RBC (0-5) /hpf Urine WBC (0-5) /hpf Ur Squamous Epith Cells (0-4) /hpf Calcium Oxalate Crystal (None) /hpf Urine Bacteria (None) /hpf Hyaline Casts (0-2) /lpf Urine Mucus (None) /hpf 06/30/21 06/30/21 Range/Units 15:11 17:15 WBC (3.8-10.6) k/uL RBC (3.80-5.40) m/uL Hgb (11.4-16.0) gm/dL Hct (34.0-46.0) % MCV (80.0-100.0) fL MCH (25.0-35.0) pg MCHC (31.0-37.0) g/dL RDW (11.5-15.5) % Plt Count (150-450) k/uL MPV Neutrophils % (Manual) % Lymphocytes % (Manual) % Monocytes % (Manual) % Neutrophils # (Manual) (1.3-7.7) k/uL Lymphocytes # (Manual) (1.0-4.8) k/uL Monocytes # (Manual) (0-1.0) k/uL Nucleated RBCs (0-0) /100 WBC Polychromasia PT (9.0-12.0) sec INR (<1.2) APTT (22.0-30.0) sec Sodium (137-145) mmol/L Potassium (3.5-5.1) mmol/L Chloride (98-107) mmol/L Carbon Dioxide (22-30) mmol/L Anion Gap mmol/L BUN (7-17) mg/dL Creatinine (0.52-1.04) mg/dL Est GFR (CKD-EPI)AfAm (>60 ml/min/1.73 sqM) Est GFR (CKD-EPI)NonAf (>60 ml/min/1.73 sqM) Glucose (74-99) mg/dL Calcium (8.4-10.2) mg/dL Magnesium (1.6-2.3) mg/dL Total Bilirubin (0.2-1.3) mg/dL AST (14-36) U/L ALT (4-34) U/L Alkaline Phosphatase (38-126) U/L Troponin I <0.012 (0.000-0.034) ng/mL Total Protein (6.3-8.2) g/dL Albumin (3.5-5.0) g/dL Amylase (30-110) U/L Lipase (23-300) U/L Urine Color Yellow Urine Appearance Cloudy H (Clear) Urine pH 5.5 (5.0-8.0) Ur Specific [place] 1.023 (1.001-1.035) Urine Protein 1+ H (Negative) Urine Glucose (UA) 4+ H (Negative) Urine Ketones Negative (Negative) Urine Blood Negative (Negative) Urine Nitrite Positive H (Negative) Urine Bilirubin Negative (Negative) Urine Urobilinogen <2.0 (<2.0) mg/dL Ur Leukocyte Esterase Small H (Negative) Urine RBC 4 (0-5) /hpf Urine WBC 32 H (0-5) /hpf Ur Squamous Epith Cells 3 (0-4) /hpf Calcium Oxalate Crystal Occasional H (None) /hpf Urine Bacteria Many H (None) /hpf Hyaline Casts 4 H (0-2) /lpf Urine Mucus Rare H (None) /hpf Disposition Clinical Impression: Urinary tract infection, Hypomagnesemia Disposition: HOME SELF-CARE Condition: Good Instructions (If sedation given, give patient instructions): Urinary Tract Infection in Women (ED) Prescriptions: Sulfamethox-Tmp 800-160Mg [Bactrim DS 800-160 mg] 1 each PO Q12HR #14 tab Is patient prescribed a controlled substance at d/c from ED?: No Referrals: Cecilia Cortez MD [Primary Care Provider] - 1-2 days Time of Disposition: 18:41
[2021-06-30 15:34] LABS: INR 0.9 (<1.2); Partial Thromboplastin Time 24.9 sec (22.0-30.0)
--- NOTE | 2021-06-30 15:37 | XR ---
EXAMINATION TYPE: XR chest 2V DATE OF EXAM: 06/30/2021 COMPARISON: Chest x-ray 11/25/2018 HISTORY: Chest pain and weakness TECHNIQUE: Frontal and lateral views of the chest are obtained. FINDINGS: There is no focal air space opacity, pleural effusion, or pneumothorax seen. The cardiac silhouette size is within normal limits. There are overlying leads. The osseous structures are intac t. IMPRESSION: No acute cardiopulmonary process.
[2021-06-30 15:39] LABS: MCH 31.1 pg (25.0-35.0); MCHC 32.5 g/dL (31.0-37.0); MCV 95.7 fL (80.0-100.0); Mean Platelet Volume 9.4; Platelet Count 359 k/uL (150-450); RDW 13.3 % (11.5-15.5); WBC 12.5 k/uL (3.8-10.6)
[2021-06-30 15:41] LABS: ALT 17 U/L (4-34); AST 15 U/L (14-36); African American GFR (CKD) >90 (>60 ml/min/1.73 sqM); Albumin 3.9 g/dL (3.5-5.0); Alkaline Phosphatase 104 U/L (38-126); Amylase 38 U/L (30-110); Anion Gap 11 mmol/L; Blood Urea Nitrogen 12 mg/dL (7-17); Calcium 9.4 mg/dL (8.4-10.2); Carbon Dioxide 17 mmol/L (22-30); Chloride 103 mmol/L (98-107); Glucose 304 mg/dL (74-99); Lipase <10 U/L (23-300); Magnesium 1.3 mg/dL (1.6-2.3); Non-African American GFR(CKD) >90 (>60 ml/min/1.73 sqM); Potassium 4.1 mmol/L (3.5-5.1); Sodium 131 mmol/L (137-145); Total Bilirubin 0.4 mg/dL (0.2-1.3); Total Protein 6.6 g/dL (6.3-8.2)
[2021-06-30 16:07] LABS: Monocytes # (M) 0.13 k/uL (0-1.0); Neutrophils # (M) 6.38 k/uL (1.3-7.7); Neutrophils % (M) 51 %; Nucleated Red Blood Cells 0 /100 WBC (0-0); Polychromasia Present; Total Cells Counted 100
[2021-06-30] MEDS ORDERED: MAGNESIUM SULFATE-D5W PMX 1 GM in DEXTROSE/WATER 1 100ML.BAG IVPB ONE (16:17)
[2021-06-30 17:26] VITALS: BP 104/75; PULSE 80; RESP 18
[2021-06-30 17:36] LABS: Appearance,Urine Cloudy (Clear); Bacteria,Urine Many /hpf; Bilirubin,Urine Negative (Negative); Blood,Urine Negative (Negative); Calcium Oxalate Crystals,Urine Occasional /hpf; Color,Urine Yellow; Glucose,Urine (UA) 4+ (Negative); Hyaline Casts,Urine 4 /lpf (0-2); Ketones,Urine Negative (Negative); Leukocyte Esterase,Urine Small (Negative); Mucus,Urine Rare /hpf; Nitrite,Urine Positive (Negative); PH, Urine 5.5 (5.0-8.0); Protein,Urine 1+ (Negative); RBC,Urine 4 /hpf (0-5); Specific Gravity,Urine 1.023 (1.001-1.035); Squamous Epithelial Cell,Urine 3 /hpf (0-4); Urobilinogen,Urine <2.0 mg/dL (<2.0); WBC,Urine 32 /hpf (0-5)
[2021-06-30] MEDS ORDERED: cefTRIAXone IN SWFI 1,000 MG/10 ML SYRINGE IVP STA (17:44)
== END 2021-06-30 17:15 | disposition home or self-care (01) ==
LOC: EC 14:33
DX: N39.0 Urinary tract infection, site not specified (principal); E83.42 Hypomagnesemia; E11.9 Type 2 diabetes mellitus without complications; K21.9 Gastro-esophageal reflux disease without esophagitis; E78.5 Hyperlipidemia, unspecified; F41.9 Anxiety disorder, unspecified; F31.9 Bipolar disorder, unspecified; F43.12 Post-traumatic stress disorder, chronic; F25.9 Schizoaffective disorder, unspecified; F17.200 Nicotine dependence, unspecified, uncomplicated; F12.90 Cannabis use, unspecified, uncomplicated; Z79.4 Long term (current) use of insulin; Z79.84 Long term (current) use of oral hypoglycemic drugs; Z79.82 Long term (current) use of aspirin; Z86.73 Personal history of transient ischemic attack (TIA), and cerebral infarction without residual deficits; Z90.49 Acquired absence of other specified parts of digestive tract
CPT/HCPCS: 99284; 96365; 96375; 96361; 36415; 93005; 80053; 82150; 83690; 83735; 84484; 85025; 85610; 85730; 81001; 87086; 87077; 87186; 71046; J2405; J3475

== ENCOUNTER 2021-10-05 12:28 | Inpatient (IN) | payer OTHER ==
[2021-10-05] MEDS ORDERED: DIPH,PERTUS(ACELL)TETVAC-LF 0.5 ML VIAL IM ONE (13:01)
[2021-10-05] MEDS ORDERED: HYDROmorphone 0.5 MG/0.5 ML SYRINGE IVP STA ×2 (13:02→16:05)
[2021-10-05 13:10] LABS: Basophils % (A) 0 %; Eosinophils # (A) 0.1 k/uL (0-0.7); Eosinophils % (A) 1 %; HCT 39.3 % (34.0-46.0); Hypochromasia Slight; Lymphocytes # (A) 1.4 k/uL (1.0-4.8); Lymphocytes % (A) 14 %; MCH 29.6 pg (25.0-35.0); MCHC 30.5 g/dL (31.0-37.0); MCV 97.3 fL (80.0-100.0); Mean Platelet Volume 8.6; Monocytes # (A) 0.4 k/uL (0-1.0); Monocytes % (A) 4 %; Neutrophils # (A) 8.2 k/uL (1.3-7.7); Neutrophils % (A) 79 %; Platelet Count 403 k/uL (150-450); RBC 4.04 m/uL (3.80-5.40); RDW 13.2 % (11.5-15.5); WBC 10.4 k/uL (3.8-10.6)
--- NOTE | 2021-10-05 13:30 | XR ---
EXAMINATION TYPE: XR hand complete RT DATE OF EXAM: 10/05/2021 COMPARISON: NONE HISTORY: Pain TECHNIQUE: Three views are submitted. FINDINGS: Diffuse osteopenia. Postsurgical changes involving the third and fourth digit are noted and there are surgical clips overlying the distal radius. There is a cortical offset involving the distal margin o f the middle phalanx fifth digit correlate for mildly displaced fracture. Fracture line extends to th e articular surface. IMPRESSION: 1. There is a cortical offset involving the distal margin of the middle phalanx fifth digit correlate for mildly displaced fracture. 2. Slight deformity involving the base proximal phalanx third digit at the articular surface of the t hird MCP joint. Findings are suspicious for a mildly displaced fracture. 3. Postsurgical change and diffuse osteopenia.
--- NOTE | 2021-10-05 13:48 | ED ---
Fall HPI - General Source: patient, RN notes reviewed Mode of arrival: wheelchair Limitations: no limitations <Ronan Lassiter - Last Filed: 10/05/21 13:43> <Racheal Cason - Last Filed: 10/05/21 19:58> - General Chief Complaint: Fall Stated Complaint: Fall down stairs Time Seen by Provider: 10/05/21 12:41 - History of Present Illness Initial Comments: This a 61-year-old female presents emergency Department chief complaint of trip and fall. Patient states she fell down numerous steps last night she states ap proximately 10 stents. Patient does complain of facial pain, and pain mild discomfort. Patient also complains of diffuse rib pain or abdominal discomfort. She is able to ambulate was able to get up for by herself. Patient states that she does not take any blood thinners. Patient noted to have large amount of bruising. Patient states that she normally takes [place] at home she states pain is unbearable at this time she does complain of mild hand pain patient states it's right hand pain no wrist pain no other extremity injury (Ronan Lassiter) - Related Data Home Medications Medication Instructions Recorded Confirmed Omeprazole 20 mg PO DAILY 04/05/18 10/05/21 QUEtiapine [SEROquel] 100 mg PO HS 09/18/20 10/05/21 hydrOXYzine pamoate [hydrOXYzine 25 mg PO BID PRN 09/18/20 10/05/21 PAMOATE] metFORMIN HCL [Glucophage] 850 mg PO BID 09/18/20 10/05/21 ARIPiprazole [Abilify Maintena] 300 mg PO QMONTHLY 06/30/21 10/05/21 Ascorbic Acid [Vitamin C] 1,000 mg PO DAILY 06/30/21 10/05/21 Cholecalciferol [Vitamin D3 (25 25 mcg PO DAILY 06/30/21 10/05/21 Mcg = 1000 Iu)] [id number] [Zenpep 10] 4 cap PO AC-TID 06/30/21 10/05/21 lamoTRIgine 200 mg PO DAILY 06/30/21 10/05/21 Allergies Allergy/AdvReac Type Severity Reaction Status Date / Time No Known Allergies Allergy Verified 10/05/21 13:39 Review of Systems ROS Other: All systems not noted in ROS Statement are negative. <Ronan Lassiter - Last Filed: 10/05/21 13:43> ROS Other: All systems not noted in ROS Statement are negative. <YoavSaraRacheal P - Last Filed: 10/05/21 19:58> ROS Statement: Those systems with pertinent positive or pertinent negative responses have been documented in the HPI. 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 RT 3RD/4TH FINGER PARTIAL AMP D/T INJURY, lt ureter stent. COLONOSCOPY/POLYPECTOMY Past Anesthesia/Blood Transfusion Reactions: Motion Sickness, Postoperative Nausea & Vomiting (PONV) Past Psychological History: Anxiety, Bipolar, Depression, PTSD, Schizophrenia Smoking Status: Current every day smoker Past Alcohol Use History: None Reported Past Drug Use History: Marijuana, Prescription Drug Abuse - Past Family History Father Family Medical History: Liver Disease Additional Family Medical History / Comment(s): Father at age 78 from cirrh osis of the liver. Mother Family Medical History: No Reported History Additional Family Medical History / Comment(s): Mother is alive in her 80s Sister(s) Family Medical History: Coronary Artery Disease (CAD) Additional Family Medical History / Comment(s): Patient has 2 sisters and one h as from an overdose. She has 1 brother with no major medical problems. 4cm aortic aneurysm <Ronan Lassiter - Last Filed: 10/05/21 13:43> General Exam Limitations: physical limitation General appearance: alert, in no apparent distress Head exam: Present: atraumatic, normocephalic, normal inspection Eye exam: Present: normal appearance, PERRL, EOMI, periorbital swelling, periorbital tenderness. Absent: scleral icterus, conjunctival injection ENT exam: Present: normal exam, normal oropharynx, mucous membranes moist Neck exam: Present: normal inspection, full ROM. Absent: tenderness, meningismus, lymphadenopathy Respiratory exam: Present: normal lung sounds bilaterally, chest wall tenderness. Absent: respiratory distress, wheezes, rales, rhonchi, stridor Cardiovascular Exam: Present: regular rate, normal rhythm, normal heart sounds. Absent: systolic murmur, diastolic murmur, rubs, gallop, clicks GI/Abdominal exam: Present: soft, tenderness, normal bowel sounds. Absent: distended, guarding, rebound, rigid <Ronan Lassiter - Last Filed: 10/05/21 13:43> Limitations: no limitations General appearance: alert Head exam: Present: normocephalic, other (Bruising to face, right eye swollen shut) Eye exam: Present: periorbital swelling, periorbital tenderness ENT exam: Present: normal oropharynx, mucous membranes moist (dried blood in left ear canal appears to be from other source) Neck exam: Present: other (placed in hard cervical collar, no cervical t enderness) Respiratory exam: Present: normal lung sounds bilaterally, chest wall tenderness Cardiovascular Exam: Present: regular rate, normal rhythm GI/Abdominal exam: Present: soft Extremities exam: Present: full ROM Back exam: Present: other (midline tenderness in lumbar spine) Neurological exam: Present: alert, oriented X3 Psychiatric exam: Present: normal affect, normal mood Skin exam: Present: abrasion <Racheal Cason P - Last Filed: 10/05/21 19:58> Course Vital Signs 10/05/21 10/05/21 10/05/21 12:32 13:37 18:00 Temperature 97 F L 98.0 F Pulse Rate 57 L 59 L 82 Respiratory 16 18 18 Rate Blood Pressure 107/70 105/62 110/75 O2 Sat by Pulse 96 96 100 Oximetry 10/05/21 19:39 Temperature Pulse Rate 80 Respiratory 18 Rate Blood Pressure 112/69 O2 Sat by Pulse 100 Oximetry Medical Decision Making - Lab Data Result diagrams: 10/05/21 12:59 <Ronan Lassiter - Last Filed: 10/05/21 13:43> - Lab Data Result diagrams: 10/05/21 12:59 10/05/21 16:59 <Racheal Cason P - Last Filed: 10/05/21 19:58> - Medical Decision Making Patient care was signed out to me by Ronan Lassiter at 3pm, imaging pending Patient was receiving IV fluids and insulin for hyperglycemia Imaging with multiple injuries including fracture of the lateral aspect of C1, flail chest on the left with fractures posterior and laterally of ribs 3 through 9, small apical pneumothorax, compression fractures in thoracic and lumbar spine. Patient care was discussed with Dr. Torrez who accepts admission to the Trauma service, as long as orthopedic/spine accepts Patient care was discussed with Dr. Hernadez of Cardiothoracic who will be on consult for flail chest Patient care was discussed with Dr. Cavazos who accepts the patient to the ICU Patient care was discussed with Dr. Bates who declines consult Patient care was discussed with Dr. Carney who reviewed imaging, states this is a stable c-spine fracture, recommends aspen collar and admit to ICU (Racheal Cason) - Lab Data Lab Results 10/05/21 10/05/21 10/05/21 Range/Units 12:59 13:06 13:41 WBC 10.4 (3.8-10.6) k/uL RBC 4.04 (3.80-5.40) m/uL Hgb 12.0 (11.4-16.0) gm/dL Hct 39.3 (34.0-46.0) % MCV 97.3 (80.0-100.0) fL MCH 29.6 (25.0-35.0) pg MCHC 30.5 L (31.0-37.0) g/dL RDW 13.2 (11.5-15.5) % Plt Count 403 (150-450) k/uL MPV 8.6 Neutrophils % 79 % Lymphocytes % 14 % Monocytes % 4 % Eosinophils % 1 % Basophils % 0 % Neutrophils # 8.2 H (1.3-7.7) k/uL Lymphocytes # 1.4 (1.0-4.8) k/uL Monocytes # 0.4 (0-1.0) k/uL Eosinophils # 0.1 (0-0.7) k/uL Basophils # 0.0 (0-0.2) k/uL Hypochromasia Slight Sodium 119 L* (137-145) mmol/L Potassium 4.5 (3.5-5.1) mmol/L Chloride 88 L (98-107) mmol/L Carbon Dioxide 16 L (22-30) mmol/L Anion Gap 15 mmol/L BUN 40 H (7-17) mg/dL Creatinine 0.93 (0.52-1.04) mg/dL Est GFR (CKD-EPI)AfAm 78 (>60 ml/min/1.73 sqM) Est GFR (CKD-EPI)NonAf 68 (>60 ml/min/1.73 sqM) Glucose 801 H* (74-99) mg/dL POC Glucose (mg/dL) (75-99) mg/dL POC Glu [employer] ID Plasma Lactic Acid Timi (0.7-2.0) mmol/L Calcium 8.7 (8.4-10.2) mg/dL Phosphorus (2.5-4.5) mg/dL Total Bilirubin 0.6 (0.2-1.3) mg/dL AST 17 (14-36) U/L ALT 22 (4-34) U/L Alkaline Phosphatase 152 H (38-126) U/L Total Protein 6.0 L (6.3-8.2) g/dL Albumin 3.4 L (3.5-5.0) g/dL Urine Color Yellow Urine Appearance Clear (Clear) Urine pH 5.0 (5.0-8.0) Ur Specific [place] 1.025 (1.001-1.035) Urine Protein Negative (Negative) Urine Glucose (UA) 4+ H (Negative) Urine Ketones 1+ H (Negative) Urine Blood Negative (Negative) Urine Nitrite Negative (Negative) Urine Bilirubin Negative (Negative) Urine Urobilinogen <2.0 (<2.0) mg/dL Ur Leukocyte Esterase Negative (Negative) 10/05/21 10/05/21 10/05/21 Range/Units 16:28 16:59 16:59 WBC (3.8-10.6) k/uL RBC (3.80-5.40) m/uL Hgb (11.4-16.0) gm/dL Hct (34.0-46.0) % MCV (80.0-100.0) fL MCH (25.0-35.0) pg MCHC (31.0-37.0) g/dL RDW (11.5-15.5) % Plt Count (150-450) k/uL MPV Neutrophils % % Lymphocytes % % Monocytes % % Eosinophils % % Basophils % % Neutrophils # (1.3-7.7) k/uL Lymphocytes # (1.0-4.8) k/uL Monocytes # (0-1.0) k/uL Eosinophils # (0-0.7) k/uL Basophils # (0-0.2) k/uL Hypochromasia Sodium 122 L (137-145) mmol/L Potassium 4.1 (3.5-5.1) mmol/L Chloride 93 L (98-107) mmol/L Carbon Dioxide 17 L (22-30) mmol/L Anion Gap 12 mmol/L BUN 39 H (7-17) mg/dL Creatinine 0.87 (0.52-1.04) mg/dL Est GFR (CKD-EPI)AfAm 84 (>60 ml/min/1.73 sqM) Est GFR (CKD-EPI)NonAf 73 (>60 ml/min/1.73 sqM) Glucose 592 H* (74-99) mg/dL POC Glucose (mg/dL) >600 H (75-99) mg/dL POC Glu [employer] ID Costa, Jeny Plasma Lactic Acid Timi (0.7-2.0) mmol/L Calcium (8.4-10.2) mg/dL Phosphorus 4.1 (2.5-4.5) mg/dL Total Bilirubin (0.2-1.3) mg/dL AST (14-36) U/L ALT (4-34) U/L Alkaline Phosphatase (38-126) U/L Total Protein (6.3-8.2) g/dL Albumin (3.5-5.0) g/dL Urine Color Urine Appearance (Clear) Urine pH (5.0-8.0) Ur Specific [place] (1.001-1.035) Urine Protein (Negative) Urine Glucose (UA) (Negative) Urine Ketones (Negative) Urine Blood (Negative) Urine Nitrite (Negative) Urine Bilirubin (Negative) Urine Urobilinogen (<2.0) mg/dL Ur Leukocyte Esterase (Negative) 10/05/21 10/05/21 Range/Units 17:35 17:59 WBC (3.8-10.6) k/uL RBC (3.80-5.40) m/uL Hgb (11.4-16.0) gm/dL Hct (34.0-46.0) % MCV (80.0-100.0) fL MCH (25.0-35.0) pg MCHC (31.0-37.0) g/dL RDW (11.5-15.5) % Plt Count (150-450) k/uL MPV Neutrophils % % Lymphocytes % % Monocytes % % Eosinophils % % Basophils % % Neutrophils # (1.3-7.7) k/uL Lymphocytes # (1.0-4.8) k/uL Monocytes # (0-1.0) k/uL Eosinophils # (0-0.7) k/uL Basophils # (0-0.2) k/uL Hypochromasia Sodium (137-145) mmol/L Potassium (3.5-5.1) mmol/L Chloride (98-107) mmol/L Carbon Dioxide (22-30) mmol/L Anion Gap mmol/L BUN (7-17) mg/dL Creatinine (0.52-1.04) mg/dL Est GFR (CKD-EPI)AfAm (>60 ml/min/1.73 sqM) Est GFR (CKD-EPI)NonAf (>60 ml/min/1.73 sqM) Glucose (74-99) mg/dL POC Glucose (mg/dL) 594 H (75-99) mg/dL POC Glu [employer] ID Jeny Skelton Plasma Lactic Acid Timi 2.8 H* (0.7-2.0) mmol/L Calcium (8.4-10.2) mg/dL Phosphorus (2.5-4.5) mg/dL Total Bilirubin (0.2-1.3) mg/dL AST (14-36) U/L ALT (4-34) U/L Alkaline Phosphatase (38-126) U/L Total Protein (6.3-8.2) g/dL Albumin (3.5-5.0) g/dL Urine Color Urine Appearance (Clear) Urine pH (5.0-8.0) Ur Specific [place] (1.001-1.035) Urine Protein (Negative) Urine Glucose (UA) (Negative) Urine Ketones (Negative) Urine Blood (Negative) Urine Nitrite (Negative) Urine Bilirubin (Negative) Urine Urobilinogen (<2.0) mg/dL Ur Leukocyte Esterase (Negative) Critical Care Time Critical Care Time: Yes Total Critical Care Time: 45 <Racheal Cason - Last Filed: 10/05/21 19:58> Critical Care Time: Critical Care Time Critical care time was exclusive of separately billable procedures and treating other patients and teaching time. Critical care was necessary to treat or prevent imminent or life-threatening deterioration. Given the critical condition in which the patient arrived, the patient was immediately assessed by myself and the nurse, and cardiac monitoring initiated due to the potential for rapid decompensation of the patient's clinical condition. During the course of the patients stay, I spent a considerable amount of time at the bedside performing serial re-evaluations of the patient's hemodynamic and clinical status because of the recognized potential threat to life or limb in this condition. I then had a chance to review not only all of the available current laboratory and radiographic studies obtained today, but I also reviewed old records available to me at the time. Additionally, any ancillary information available including [facility] clinical programmer records were reviewed. Sequential vital signs were obtained. (Racheal Cason) Disposition <Ronan Lassiter - Last Filed: 10/05/21 13:43> <Racheal Cason - Last Filed: 10/05/21 19:58> Clinical Impression: C1 cervical fracture, Flail chest, Pneumothorax on left, Compression fracture of T11 vertebra, Lumbar compression fracture, Hyperglycemia due to type 2 diabetes mellitus Disposition: ADMITTED IP TO THIS HOSP Condition: Serious
[2021-10-05 13:54] LABS: Appearance,Urine Clear (Clear); Bilirubin,Urine Negative (Negative); Blood,Urine Negative (Negative); Color,Urine Yellow; Glucose,Urine (UA) 4+ (Negative); Ketones,Urine 1+ (Negative); Leukocyte Esterase,Urine Negative (Negative); Nitrite,Urine Negative (Negative); Protein,Urine Negative (Negative); Specific Gravity,Urine 1.025 (1.001-1.035); Urobilinogen,Urine <2.0 mg/dL (<2.0)
[2021-10-05 14:43] LABS: Albumin 3.4 g/dL (3.5-5.0); Calcium 8.7 mg/dL (8.4-10.2); Potassium 4.5 mmol/L (3.5-5.1); Total Bilirubin 0.6 mg/dL (0.2-1.3)
[2021-10-05] MEDS ORDERED: SODIUM CHLORIDE 0.9% 1,000 ML IV ONE (15:13)
--- NOTE | 2021-10-05 16:21 | CT ---
EXAMINATION TYPE: CT brain jose liu con DATE OF EXAM: 10/05/2021 COMPARISON: None available HISTORY: Fall CT DLP: 1520.1 mGycm Automated exposure control for dose reduction was used. TECHNIQUE: CT scan of the head and cervical spine are performed without contrast. FINDINGS: Brain: Brain volume loss changes. No acute intracranial hemorrhage or gross acute cortical infarct. No midli ne shift or herniation. Unremarkable basal cisterns, sella and CP angles. No gross space-occupying le brittney, vasogenic edema or mass effect. Right frontal scalp, right periorbital and right facial soft tissue swelling/hematoma. Intact eye pavel bes. Mucosal thickening of the right maxillary sinus. Clear mastoid air cells. Degenerative changes o f the left TMJ. No definite acute calvarial bone fracture identified. Cervical spine: Displaced/ avulsion fracture of the inferior posterolateral aspect of the left transverse process of C1 with bone fragments. This is probably acute, please correlate clinically. No other defin ite vertebral body collapse or acute displaced fracture. No anterolisthesis or retrolisthesis. Unremarkable atlantoaxial and atlantooccipital articulations. No facet dislocation or significant sub luxation. No significant bony central spinal canal stenosis or bony neuroforaminal stenosis. Left jose ed minimal pneumothorax and the left upper rib fractures, CT scan of the chest is dictated separately . IMPRESSION: 1. No acute intracranial posttraumatic sequela or acute calvarial bone fracture. Right frontal scalp swelling/hematoma. CT scan of the facial bone is dictated separately. 2. Displaced/avulsion fracture of the left lateral aspect of C1 with bone fragments as desc ribed above, probably acute, please correlate clinically. No other acute traumatic bony injury of the cervical spine. 3. Left apical pneumothorax and left upper rib fractures, CT scan of the chest is dictated separately .
--- NOTE | 2021-10-05 16:25 | CT ---
EXAMINATION TYPE: CT facial bones wo con DATE OF EXAM: 10/05/2021 COMPARISON: None available HISTORY: Fall, facial trauma CT DLP: 1264 mGycm Automated exposure control for dose reduction was used. TECHNIQUE: CT scan of the sinuses is performed without contrast, axial images are obtained, coronal r eformatted images are also reviewed. FINDINGS: No definite acute facial bone fracture. Degenerative changes of the left TMJ. Mucosal thick ening of the right maxillary sinus. Deviated bony nasal septum convex to the right side with a bony s pur. Unremarkable orbits. Right frontal scalp and right facial soft tissue swelling/hematoma. IMPRESSION: No definite acute facial bone fracture identified. Soft tissue swelling and other inciden ave findings as described above.
[2021-10-05 16:30] LABS: Glucose,Whole Blood >600 mg/dL (75-99)
[2021-10-05] MEDS: INSULIN REGULAR 100 UNIT in SODIUM CHLORIDE 0.9% 100 ML IV SCH (16:32)
[2021-10-05] MEDS: SODIUM CHLORIDE 0.9% 1,000 ML IV SCH (16:33)
--- NOTE | 2021-10-05 16:45 | CT ---
EXAMINATION TYPE: CT ChestAbdPelvis w con DATE OF EXAM: 10/05/2021 COMPARISON: CT dated 09/18/2020 HISTORY: Fall CT DLP: 762.3 mGycm Automated exposure control for dose reduction was used. CONTRAST: CT scan of the chest, abdomen and pelvis is performed without Oral Contrast and with IV Contrast, pat ient injected with 100 mL of Isovue 300. FINDINGS: LUNGS: Displaced fractures of the axillary portions of the left third, fourth, fifth, sixth, seventh, eighth and ninth ribs with fractured posterior aspects of the left fifth and eighth ribs suggestive of a flail chest. Associated minimal left-sided pneumothorax. Minimal infiltration is seen at the med ial aspect of the left lung apex as well as the anterior aspect of the right upper lobe which could r epresent minimal pulmonary hemorrhage or contusion versus inflammatory changes. Mild paraseptal emphy sema is seen in the upper lobes. Small left pleural effusion/hemothorax. No right-sided pleural effus ion. Reticulonodular infiltrates are seen in the lower lobes more on the right side and could be rela yonny to inflammatory/infectious process. Diffuse bronchial thickening is also noted. Patent trachea an d main bronchi. MEDIASTINUM: Dilated ascending aorta measuring 3.9 cm. Scattered arterial atherosclerotic calcificati ons. No gross cardiomegaly. No pericardial effusion. No mediastinal hematoma or collection. No defini te acute vascular injury seen in the chest. No pathologically enlarged thoracic lymph nodes. OTHER: Mild upper endplate depression of T11 vertebral body, appreciated previously. No definite acu te thoracic vertebral fracture identified. LIVER/GB: No significant abnormality is appreciated. PANCREAS: Atrophic with extensive pancreatic calcification and pancreatic duct dilatation likely repr esenting sequela of chronic pancreatitis. SPLEEN: No significant abnormality is seen. ADRENALS: Thickened adrenals bilaterally, appreciated previously. KIDNEYS: Tiny bilateral nonobstructing renal calculi measuring up to 3 mm. Small right kidney. Right renal cyst without gross suspicious feature. Grossly unremarkable urinary bladder. BOWEL: Unremarkable nondistended stomach and duodenum. Suboptimal assessment of the small and bowel due to paucity of intra-abdominal fat. No evidence of bowel obstruction. Severe fecal loading of the rectum and the entire colon consistent with severe constipation. The patient may benefit from an enem a or laxatives. Subtle injury of the small or large bowel cannot be excluded by this CT scan. REPRODUCTIVE ORGANS: Suboptimally assessed. LYMPH NODES: No greater than 1 cm abdominal or pelvic lymph nodes are appreciated. OSSEOUS STRUCTURES: Mild upper endplate depression of L2 and L5 vertebral bodies with minimal sclerot ic changes, not appreciated in 2020 CT scan, this could be acute or chronic, please correlate clinica lly. No other definite fracture identified in the lumbar spine or the pelvic bones. OTHER: Extensive arterial atherosclerotic calcifications. Suspected small amount of free pelvic fluid . IMPRESSION: 1. Left third down to ninth rib fractures suggestive of a flail chest, please correlate clinically. A ssociated minimal left pneumothorax, small left pleural effusion and questionable minimal bilateral p ulmonary contusions as detailed above. 2. Stable chronic fracture of T11 vertebral body. 3. Mild upper endplate depression of L2 on L5 vertebral bodies, not appreciated previously. This coul d be acute or chronic, please correlate clinically. 4. No other major acute traumatic injury seen in the abdomen or the pelvis. Other multiple incidental findings as detailed above.
[2021-10-05] MEDS ORDERED: NALOXONE 0.4 MG/ML 1 ML VIAL IV PRN (17:17)
[2021-10-05 17:37] LABS: Glucose,Whole Blood 594 mg/dL (75-99)
[2021-10-05 17:57] LABS: Potassium 4.1 mmol/L (3.5-5.1)
[2021-10-05 18:57] LABS: Glucose,Whole Blood 405 mg/dL (75-99)
[2021-10-05 19:39] LABS: Glucose,Whole Blood 254 mg/dL (75-99)
[2021-10-05 20:50] LABS: Glucose,Whole Blood 90 mg/dL (75-99)
[2021-10-05] MEDS: D5-0.45% NACL WITH KCL 20MEQ/L 1,000 ML IV SCH (20:56)
[2021-10-05 21:13] LABS: African American GFR (CKD) >90 (>60 ml/min/1.73 sqM); Anion Gap 11 mmol/L; Blood Urea Nitrogen 37 mg/dL (7-17); Carbon Dioxide 17 mmol/L (22-30); Chloride 101 mmol/L (98-107); Glucose 76 mg/dL (74-99); Non-African American GFR(CKD) 80 (>60 ml/min/1.73 sqM); Potassium 3.9 mmol/L (3.5-5.1); Sodium 129 mmol/L (137-145)
--- NOTE | 2021-10-05 21:25 | P.GSHP ---
History of Present Illness H&P Date: 10/05/21 CHIEF COMPLAINT: Status post fall with traumatic rib fractures, flail chest, spinal fracture HISTORY OF PRESENT ILLNESS: The patient is a 61 year old female with poorly controlled diabetes, and weight presented to emergency room after falling down a flight of stairs last night. Patient presented to the emergency room as a trauma fall yesterday. She presented to the emergency room due to bruising on the face, neck pain, chest pain and back pain. Diagnostic course demonstrated cervical fracture, flail chest, uncontrolled diabetes with glucose of over 800. Secondary to her traumatic injuries, patient is admitted. PAST MEDICAL HISTORY: See list and reviewed PAST SURGICAL HISTORY: See list and reviewed MEDICATIONS: See list and reviewed ALLERGIES: See list and reviewed SOCIAL HISTORY: See list and reviewed. Uses marijuana. FAMILY HISTORY: See list and reviewed REVIEW OF ORGAN SYSTEMS: CONSTITUTIONAL: No fevers or chills. BMI 19.1, and overweight. EYES: Denies any trouble with vision. No glasses. HEENT: No difficulties with hearing. No nosebleeds. No difficulty swallowing. RESPIRATORY: Has chronic bronchitis. Has tobacco abuse disorder or chronic obstructive pulmonary disease. CARDIOVASCULAR: Denies any chest pain, palpitations, or recent heart attacks. Has hyperlipidemia. GASTROINTESTINAL: Denies fatty food intolerance. Denies change in bowel habits and gas bloat. Has gastroesophageal reflux disease. Has pancreatic insufficiency. Has chronic pancreatitis. GENITOURINARY: Denies any blood in urine or increased urinary frequency. 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 Has bilateral lower extremity neuropathy. MUSCULOSKELETAL: Denies any back pain, stiffness or joint arthritis. SKIN: No current skin cancer. No rash. PSYCHIATRIC: No suicidal thoughts. Has depressive disorder. Anxiety disorder with bipolar disorder. Has schizophrenia including posttraumatic stress disorder. ENDOCRINE: Denies current thyroid disorders. Has diabetes type 2, [id number], uncontrolled. HEME/LYMPHATIC: Denies any lumps and bumps around the neck. No recent deep venous thrombosis. ALLERGY/IMMUNOLOGY: No immunoglobulin therapy. No immune deficiencies. BREAST: Denies current breast lumps, pain or nipple discharge. PHYSICAL EXAM: VITALS: Reviewed CONSTITUTIONAL: Well developed and in no acute distress. Appears older than stated age. EYES: Conjuctivae without sclera icterus. Extraocular movements grossly intact. Moderate ecchymoses bilateral eyes. HEAD, EARS, NOSE, THROAT: Moist buccal mucosa. Head is atraumatic, normocephalic. Hears conversational speech. No nasal drainage. NECK: Supple. No JV distention. No thyroidomegaly. Cervical spine midline with cervical neck brace, hard collar. RESPIRATORY: Non-labored respirations and equal bilateral excursions. Tender rib cages. CARDIOVASCULAR: Palpable 2+ radial pulses. ABDOMEN: Scaphoid, no peritonitis. LYMPH: No neck lymphadenopathy. MUSCULOSKELETAL: Nail and fingers with good capillary refill. SKIN: Warm and well perfused with good skin turgor. NEUROLOGIC: Cranial nerves II through XII grossly intact. No focal or lateralizing signs. PSYCH: Alert to person. Displays appropriate insight. CLINCAL LABS: Reviewed. WBC normal 10.4. Hemoglobin normal 12.0. Lactic acid level elevated 2.8. Sodium low at 119. Creatinine normal 0.93. Glucose elevated 801. Total protein low, albumin low. IMAGING: Independently reviewed CT of the abdomen and pelvis demonstrated moderate stool burden with redundant hepatic flexure and transverse colon. No free air. No free fluid. No intra-abdominal hemorrhage along spleen or liver. This is my independent interpretation. RADIOLOGY: Report reviewed CT C-spine with displaced avulsion fracture C1 of left transverse process fracture CT chest with left apical pneumothorax and multiple rib fractures and flail chest. Multilevel left fracture involving third, fourth, fifth, sixth, eighth, ninth with flail chest. Posterior fractures involving fifth and eighth fractures. T11 compression fracture, stable CT face with facial swelling without fractures r Xray of right hand infection involving third and fifth fracture ASSESSMENT: 1. Status post fall down stairs 2. C1 transverse process fracture 3. Multiple traumatic left rib fractures, 3, 4, 5, 6, 8, 9 with pneumothorax 4. Fall chest left rib fractures 5. Diabetes type 2, uncontrolled with diabetic nephropathy complication 6. Hyperglycemia 7. Hyponatremia 8. Schizophrenia 9. Bipolar disorder 10. Depressive disorder 11. Chronic obstructive pulmonary disease 12. Tobacco abuse disorder 13. Marijuana use 14. Facial bruising 15. Pancreatic insufficiency due to chronic pancreatitis 16. Underweight, BMI 19.1 PLAN: 1. Admission to the intensive care unit due to multiple rib fractures as well a s traumatic left pneumothorax 2. Consultation to cardiothoracic for flail chest 3. Consultation to pulmonary rehabilitation technician for intensive care unit management 4. Consultation to medicine for management of uncontrolled diabetes type tube with hyperglycemia 5. Pulmonary toilet with incentive spirometer 6. Consultation to orthopedic spine for cervical spine fracture 7. Consistent carb diet 8. Repeat chest x-ray for apical pneumothorax 9. DVT prophylaxis 10. Social consultation for rehab assessment Past Medical History Past Medical History: Cancer, CVA/TIA, Diabetes Mellitus, GERD/Reflux, Hyperlipidemia, Renal Disease Additional Past Medical History / Comment(s): Chronic pancreatitis,wt loss of 60-70 pounds over last year, HEART MURMUR AND ENLARGED AORTA, tia's, colon polyps-benign, "blood pressure tends to run low ended up in ICU" pt states recent UTI treated,merle neuropathy,throat CA at age 6,chronic bronchitis History of Any Multi-Drug Resistant Organisms: MRSA Date of last positivie culture/infection: 2015 MDRO Source:: face Past Surgical History: Appendectomy Additional Past Surgical History / Comment(s): CYST REMOVED FROM NECK. RT 3RD/4TH FINGER PARTIAL AMP D/T INJURY, lt ureter stent. COLONOSCOPY/POLYPECTOMY Past Anesthesia/Blood Transfusion Reactions: Motion Sickness, Postoperative Nausea & Vomiting (PONV) Past Psychological History: Anxiety, Bipolar, Depression, PTSD, Schizophrenia Smoking Status: Current every day smoker Past Alcohol Use History: None Reported Past Drug Use History: Marijuana, Prescription Drug Abuse - Past Family History Father Family Medical History: Liver Disease Additional Family Medical History / Comment(s): Father at age 78 from cirrh osis of the liver. Mother Family Medical History: No Reported History Additional Family Medical History / Comment(s): Mother is alive in her 80s Sister(s) Family Medical History: Coronary Artery Disease (CAD) Additional Family Medical History / Comment(s): Patient has 2 sisters and one h as from an overdose. She has 1 brother with no major medical problems. 4cm aortic aneurysm Medications and Allergies Home Medications Medication Instructions Recorded Confirmed Type Omeprazole 20 mg PO DAILY 04/05/18 10/05/21 History QUEtiapine [SEROquel] 100 mg PO HS 09/18/20 10/05/21 History hydrOXYzine pamoate [hydrOXYzine 25 mg PO BID PRN 09/18/20 10/05/21 History PAMOATE] metFORMIN HCL [Glucophage] 850 mg PO BID 09/18/20 10/05/21 History ARIPiprazole [Abilify Maintena] 300 mg PO QMONTHLY 06/30/21 10/05/21 History Ascorbic Acid [Vitamin C] 1,000 mg PO DAILY 06/30/21 10/05/21 History Cholecalciferol [Vitamin D3 (25 25 mcg PO DAILY 06/30/21 10/05/21 History Mcg = 1000 Iu)] Tsigww-Ttqebhxa-Npsolxp [Zenpep 10] 4 cap PO AC-TID 06/30/21 10/05/21 History lamoTRIgine 200 mg PO DAILY 06/30/21 10/05/21 History Allergies Allergy/AdvReac Type Severity Reaction Status Date / Time No Known Allergies Allergy Verified 10/05/21 13:39 Surgical - Exam Vital Signs Temp Pulse Resp BP Pulse Ox 97 F L 57 L 16 107/70 96 10/05/21 12:32 10/05/21 12:32 10/05/21 12:32 10/05/21 12:32 10/05/21 12:32 Results - Labs 10/05/21 12:59 10/05/21 16:59 Abnormal Lab Results - Last 24 Hours (Table) 10/05/21 10/05/21 10/05/21 Range/Units 12:59 13:06 13:41 MCHC 30.5 L (31.0-37.0) g/dL Neutrophils # 8.2 H (1.3-7.7) k/uL Sodium 119 L* (137-145) mmol/L Chloride 88 L (98-107) mmol/L Carbon Dioxide 16 L (22-30) mmol/L BUN 40 H (7-17) mg/dL Glucose 801 H* (74-99) mg/dL POC Glucose (mg/dL) (75-99) mg/dL Plasma Lactic Acid Timi (0.7-2.0) mmol/L Alkaline Phosphatase 152 H (38-126) U/L Total Protein 6.0 L (6.3-8.2) g/dL Albumin 3.4 L (3.5-5.0) g/dL Urine Glucose (UA) 4+ H (Negative) Urine Ketones 1+ H (Negative) 10/05/21 10/05/21 10/05/21 Range/Units 16:28 16:59 17:35 MCHC (31.0-37.0) g/dL Neutrophils # (1.3-7.7) k/uL Sodium 122 L (137-145) mmol/L Chloride 93 L (98-107) mmol/L Carbon Dioxide 17 L (22-30) mmol/L BUN 39 H (7-17) mg/dL Glucose 592 H* (74-99) mg/dL POC Glucose (mg/dL) >600 H 594 H (75-99) mg/dL Plasma Lactic Acid Timi (0.7-2.0) mmol/L Alkaline Phosphatase (38-126) U/L Total Protein (6.3-8.2) g/dL Albumin (3.5-5.0) g/dL Urine Glucose (UA) (Negative) Urine Ketones (Negative) 10/05/21 10/05/21 10/05/21 Range/Units 17:59 18:33 19:38 MCHC (31.0-37.0) g/dL Neutrophils # (1.3-7.7) k/uL Sodium (137-145) mmol/L Chloride (98-107) mmol/L Carbon Dioxide (22-30) mmol/L BUN (7-17) mg/dL Glucose (74-99) mg/dL POC Glucose (mg/dL) 405 H 254 H (75-99) mg/dL Plasma Lactic Acid Timi 2.8 H* (0.7-2.0) mmol/L Alkaline Phosphatase (38-126) U/L Total Protein (6.3-8.2) g/dL Albumin (3.5-5.0) g/dL Urine Glucose (UA) (Negative) Urine Ketones (Negative) Diabetes panel 10/05/21 10/05/21 Range/Units 13:06 16:59 Sodium 119 L* 122 L (137-145) mmol/L Potassium 4.5 4.1 (3.5-5.1) mmol/L Chloride 88 L 93 L (98-107) mmol/L Carbon Dioxide 16 L 17 L (22-30) mmol/L BUN 40 H 39 H (7-17) mg/dL Creatinine 0.93 0.87 (0.52-1.04) mg/dL Glucose 801 H* 592 H* (74-99) mg/dL Calcium 8.7 (8.4-10.2) mg/dL AST 17 (14-36) U/L ALT 22 (4-34) U/L Alkaline Phosphatase 152 H (38-126) U/L Total Protein 6.0 L (6.3-8.2) g/dL Albumin 3.4 L (3.5-5.0) g/dL Calcium panel 10/05/21 10/05/21 Range/Units 13:06 16:59 Calcium 8.7 (8.4-10.2) mg/dL Phosphorus 4.1 (2.5-4.5) mg/dL Albumin 3.4 L (3.5-5.0) g/dL Pituitary panel 10/05/21 10/05/21 Range/Units 13:06 16:59 Sodium 119 L* 122 L (137-145) mmol/L Potassium 4.5 4.1 (3.5-5.1) mmol/L Chloride 88 L 93 L (98-107) mmol/L Carbon Dioxide 16 L 17 L (22-30) mmol/L BUN 40 H 39 H (7-17) mg/dL Creatinine 0.93 0.87 (0.52-1.04) mg/dL Glucose 801 H* 592 H* (74-99) mg/dL Calcium 8.7 (8.4-10.2) mg/dL Adrenal panel 10/05/21 10/05/21 Range/Units 13:06 16:59 Sodium 119 L* 122 L (137-145) mmol/L Potassium 4.5 4.1 (3.5-5.1) mmol/L Chloride 88 L 93 L (98-107) mmol/L Carbon Dioxide 16 L 17 L (22-30) mmol/L BUN 40 H 39 H (7-17) mg/dL Creatinine 0.93 0.87 (0.52-1.04) mg/dL Glucose 801 H* 592 H* (74-99) mg/dL Calcium 8.7 (8.4-10.2) mg/dL Total Bilirubin 0.6 (0.2-1.3) mg/dL AST 17 (14-36) U/L ALT 22 (4-34) U/L Alkaline Phosphatase 152 H (38-126) U/L Total Protein 6.0 L (6.3-8.2) g/dL Albumin 3.4 L (3.5-5.0) g/dL
[2021-10-05 21:28] LABS: Glucose,Whole Blood 142 mg/dL (75-99)
[2021-10-05] MEDS ORDERED: bisacodyL 10 MG SUPP RECTAL PRN (21:35)
[2021-10-05 22:32] LABS: Glucose,Whole Blood 150 mg/dL (75-99)
[2021-10-05] MEDS ORDERED: LIDOCAINE 5% PATCH TOPICAL STA (23:11)
[2021-10-05] MEDS: HYDROmorphone 0.5 MG/0.5 ML SYRINGE IVP PRN (23:26)
[2021-10-05 23:44] LABS: Glucose,Whole Blood 118 mg/dL (75-99)
[2021-10-06] MEDS ORDERED: ONDANSETRON 4 MG/2 ML VIAL IVP PRN
[2021-10-06] MEDS ORDERED: ACETAMINOPHEN TAB 325 MG TAB PO PRN
[2021-10-06 00:30] LABS: Glucose,Whole Blood 109 mg/dL (75-99)
[2021-10-06 01:34] LABS: Glucose,Whole Blood 140 mg/dL (75-99)
[2021-10-06 02:51] LABS: Glucose,Whole Blood 172 mg/dL (75-99)
[2021-10-06] MEDS: D5-0.45% NACL WITH KCL 20MEQ/L 1,000 ML IV SCH ×2 (03:32→12:04)
[2021-10-06] MEDS: SODIUM CHLORIDE 0.9% 1,000 ML IV SCH ×2 (03:32→12:05)
[2021-10-06 03:36] LABS: Glucose,Whole Blood 172 mg/dL (75-99)
[2021-10-06 05:00] LABS: Glucose,Whole Blood 237 mg/dL (75-99)
[2021-10-06 05:52] LABS: Glucose,Whole Blood 258 mg/dL (75-99)
[2021-10-06 06:34] LABS: Glucose,Whole Blood 351 mg/dL (75-99)
[2021-10-06] MEDS: HYDROmorphone 0.5 MG/0.5 ML SYRINGE IVP PRN ×2 (06:35→09:21)
[2021-10-06 07:23] LABS: Basophils # (A) 0.1 k/uL (0-0.2); Basophils % (A) 1 %; Eosinophils # (A) 0.2 k/uL (0-0.7); Eosinophils % (A) 2 %; HCT 33.7 % (34.0-46.0); HGB 10.7 gm/dL (11.4-16.0); Lymphocytes # (A) 2.2 k/uL (1.0-4.8); Lymphocytes % (A) 23 %; MCH 29.6 pg (25.0-35.0); MCHC 31.6 g/dL (31.0-37.0); MCV 93.4 fL (80.0-100.0); Mean Platelet Volume 8.7; Monocytes # (A) 0.5 k/uL (0-1.0); Monocytes % (A) 5 %; Neutrophils # (A) 6.3 k/uL (1.3-7.7); Neutrophils % (A) 68 %; Platelet Count 359 k/uL (150-450); RBC 3.61 m/uL (3.80-5.40); RDW 12.9 % (11.5-15.5); WBC 9.3 k/uL (3.8-10.6)
[2021-10-06 07:33] LABS: Glucose,Whole Blood 296 mg/dL (75-99)
--- NOTE | 2021-10-06 07:53 | XR ---
EXAMINATION TYPE: XR chest 1V DATE OF EXAM: 10/06/2021 COMPARISON: 06/30/2021 HISTORY: Chest trauma TECHNIQUE: Single frontal view of the chest is obtained. FINDINGS: There is left-sided consolidation and pleural effusion. Findings are suggestive of multipl e displaced left-sided rib fractures. There is a left-sided pneumothorax measuring approximately 10%. Right lung clear. Heart size normal. Correlation with CT chest recommended. IMPRESSION: 1. Left sided consolidation and pleural effusion with multiple displaced rib fractures. Also suspect a pneumothorax as reported by CT scan measuring approximately 10%.
[2021-10-06 08:30] LABS: Glucose,Whole Blood 269 mg/dL (75-99)
[2021-10-06] MEDS: metFORMIN 850 MG TAB PO SCH ×2 (08:39→21:03)
[2021-10-06] MEDS: PANTOPRAZOLE 40 MG TABLET PO SCH (08:54)
[2021-10-06] MEDS: DOCUSATE 100 MG CAP PO SCH ×2 (08:54→20:53)
[2021-10-06] MEDS: lamoTRIgine 100 MG TAB PO SCH (08:54)
[2021-10-06] MEDS: HEPARIN SODIUM,PORCINE/PF 5,000 UNIT/0.5 ML SYRINGE SQ SCH ×2 (08:54→20:52)
[2021-10-06] MEDS: LIPASE 5,000/PROTEASE 17,000/AMYLASE 24,000 PO SCH ×3 (08:58→17:30)
[2021-10-06 09:07] LABS: African American GFR (CKD) >90 (>60 ml/min/1.73 sqM); Anion Gap 7 mmol/L; Blood Urea Nitrogen 26 mg/dL (7-17); Carbon Dioxide 18 mmol/L (22-30); Chloride 101 mmol/L (98-107); Glucose 294 mg/dL (74-99); Non-African American GFR(CKD) >90 (>60 ml/min/1.73 sqM); Phosphorus 2.8 mg/dL (2.5-4.5); Potassium 4.5 mmol/L (3.5-5.1); Sodium 126 mmol/L (137-145)
[2021-10-06 09:37] LABS: Glucose,Whole Blood 198 mg/dL (75-99)
--- NOTE | 2021-10-06 10:35 | P.GSCN ---
History of Present Illness Consult date: 10/06/21 Reason for Consult: Flail chest Requesting physician: Racheal Cason History of present illness: This is a 61-year-old female who follows in an outpatient basis with Dr. Heraclio Mack for primary care. She has an extensive previous medical history including current tobacco dependence, COPD, diabetes, chronic pancreatitis, hypertension, hyperlipidemia, renal insufficiency, TIA, bipolar depression, and medical nonc ompliance. She presented to [facility] emergency room after a fall down 10 steps at home. In the emergency room she complained of facial pain and diffuse left rib pain. She states she was able to get up and ambulate after the fall, denies any blood thinner use. She had numerous scans in the emergency room including a chest/abdomen/pelvis CT which demonstrated displaced lateral fractures of the left third through ninth ribs along with posterior left fifth and eighth rib fractures, with concern for flail chest. In addition there was a very minimal pneumothorax. Lab work was reviewed. The ER physicians contacted trauma surgery, cardiothoracic surgery, pulmonology, and orthopedics. The patient was placed and C-spine precautions, was started on IV narcotics for pain control, and the patient was to be admitted for evaluation and treatment by multiple consultants. Review of Systems Review of systems was completed and was negative except as noted - Constitutional Reports as per HPI, Reports chronic pain - Cardiovascular Reports as per HPI, Reports chest pain - Musculoskeletal Reports frequent falls right: hand pain, hand swelling - Endocrine Reports high blood sugars Past Medical History Past Medical History: Cancer, CVA/TIA, Diabetes Mellitus, GERD/Reflux, Hyperlipidemia, Renal Disease Additional Past Medical History / Comment(s): Chronic pancreatitis,wt loss of 60-70 pounds over last year, HEART MURMUR AND ENLARGED AORTA, tia's, colon polyps-benign, "blood pressure tends to run low ended up in ICU" pt states recent UTI treated,merle neuropathy,throat CA at age 6,chronic bronchitis History of Any Multi-Drug Resistant Organisms: MRSA Year Discovered:: 2016 MDRO Source:: face Past Surgical History: Appendectomy Additional Past Surgical History / Comment(s): CYST REMOVED FROM NECK. RT 3RD/4TH FINGER PARTIAL AMP D/T INJURY, lt ureter stent. COLONOSCOPY/POLYPECTOMY Past Anesthesia/Blood Transfusion Reactions: Motion Sickness, Postoperative Nausea & Vomiting (PONV) Past Psychological History: Anxiety, Bipolar, Depression, PTSD, Schizophrenia Smoking Status: Current every day smoker Past Alcohol Use History: None Reported Past Drug Use History: Marijuana, Prescription Drug Abuse - Past Family History Father Family Medical History: Liver Disease Additional Family Medical History / Comment(s): Father at age 78 from cirrhosis of the liver. Mother Family Medical History: No Reported History Additional Family Medical History / Comment(s): Mother is alive in her 80s Sister(s) Family Medical History: Coronary Artery Disease (CAD) Additional Family Medical History / Comment(s): Patient has 2 sisters and one has from an overdose. She has 1 brother with no major medical problems. 4cm aortic aneurysm Medications and Allergies Home Medications Medication Instructions Recorded Confirmed Type Omeprazole 20 mg PO DAILY 04/05/18 10/05/21 History QUEtiapine [SEROquel] 100 mg PO HS 09/18/20 10/05/21 History hydrOXYzine pamoate [hydrOXYzine 25 mg PO BID PRN 09/18/20 10/05/21 History PAMOATE] metFORMIN HCL [Glucophage] 850 mg PO BID 09/18/20 10/05/21 History ARIPiprazole [Abilify Maintena] 300 mg PO QMONTHLY 06/30/21 10/05/21 History Ascorbic Acid [Vitamin C] 1,000 mg PO DAILY 06/30/21 10/05/21 History Cholecalciferol [Vitamin D3 (25 25 mcg PO DAILY 06/30/21 10/05/21 History Mcg = 1000 Iu)] Zodwai-Zzomliha-Ksitjue [Zenpep 10] 4 cap PO AC-TID 06/30/21 10/05/21 History lamoTRIgine 200 mg PO DAILY 06/30/21 10/05/21 History Allergies Allergy/AdvReac Type Severity Reaction Status Date / Time No Known Allergies Allergy Verified 10/05/21 13:39 Surgical - Exam Vital Signs Temp Pulse Resp BP Pulse Ox 97 F L 57 L 16 107/70 96 10/05/21 12:32 10/05/21 12:32 10/05/21 12:32 10/05/21 12:32 10/05/21 12:32 CONSTITUTIONAL: Awake and alert, cooperative, well-developed, well-nourished, no acute distress EYES: Pupils equal, round, reactive to light, normal ocular movement, periorbital swelling and tenderness present as well as bruising ENT: Moist mucous membranes without oral lesions present NECK: No masses, no bruits, trachea midline RESPIRATORY: Lungs sounds diminished bilaterally. Respirations even, nonlabored. Currently on 4 L nasal cannula with oxygen saturation 100%. Able to achieve 750 mL on her incentive spirometer. No paradoxical movement of the chest present CARDIOVASCULAR: S1, S2 present. Regular rate and rhythm, sinus rhythm on telemetry. Palpable peripheral pulses bilaterally. No edema present. GASTROINTESTINAL: Abdomen soft, nontender, nondistended without masses or organomegaly noted. There is no rebound or guarding present. Active bowel sounds present 4 quadrants. GENITOURINARY: Martinez present draining clear yellow urine INTEGUMENTARY: Skin is warm and dry with multiple areas of ecchymosis over her face NEUROLOGIC: Cranial nerves II through XII intact, normal coordination, no obvious motor or sensory deficits, speech is normal MUSKULOSKELETAL: Able to move all extremities, strength equal bilaterally, c- collar in place PSYCHIATRIC: Alert and oriented to person place and time, appropriate affect, intact judgment and insight Results - Labs 10/06/21 06:43 10/06/21 06:43 Abnormal Lab Results - Last 24 Hours (Table) 10/05/21 10/05/21 10/05/21 Range/Units 12:59 13:06 13:41 RBC (3.80-5.40) m/uL Hgb (11.4-16.0) gm/dL Hct (34.0-46.0) % MCHC 30.5 L (31.0-37.0) g/dL Neutrophils # 8.2 H (1.3-7.7) k/uL Sodium 119 L* (137-145) mmol/L Chloride 88 L (98-107) mmol/L Carbon Dioxide 16 L (22-30) mmol/L BUN 40 H (7-17) mg/dL Glucose 801 H* (74-99) mg/dL POC Glucose (mg/dL) (75-99) mg/dL Plasma Lactic Acid Timi (0.7-2.0) mmol/L Alkaline Phosphatase 152 H (38-126) U/L Total Protein 6.0 L (6.3-8.2) g/dL Albumin 3.4 L (3.5-5.0) g/dL Urine Glucose (UA) 4+ H (Negative) Urine Ketones 1+ H (Negative) 10/05/21 10/05/21 10/05/21 Range/Units 16:28 16:59 17:35 RBC (3.80-5.40) m/uL Hgb (11.4-16.0) gm/dL Hct (34.0-46.0) % MCHC (31.0-37.0) g/dL Neutrophils # (1.3-7.7) k/uL Sodium 122 L (137-145) mmol/L Chloride 93 L (98-107) mmol/L Carbon Dioxide 17 L (22-30) mmol/L BUN 39 H (7-17) mg/dL Glucose 592 H* (74-99) mg/dL POC Glucose (mg/dL) >600 H 594 H (75-99) mg/dL Plasma Lactic Acid Timi (0.7-2.0) mmol/L Alkaline Phosphatase (38-126) U/L Total Protein (6.3-8.2) g/dL Albumin (3.5-5.0) g/dL Urine Glucose (UA) (Negative) Urine Ketones (Negative) 10/05/21 10/05/21 10/05/21 Range/Units 17:59 18:33 19:38 RBC (3.80-5.40) m/uL Hgb (11.4-16.0) gm/dL Hct (34.0-46.0) % MCHC (31.0-37.0) g/dL Neutrophils # (1.3-7.7) k/uL Sodium (137-145) mmol/L Chloride (98-107) mmol/L Carbon Dioxide (22-30) mmol/L BUN (7-17) mg/dL Glucose (74-99) mg/dL POC Glucose (mg/dL) 405 H 254 H (75-99) mg/dL Plasma Lactic Acid Timi 2.8 H* (0.7-2.0) mmol/L Alkaline Phosphatase (38-126) U/L Total Protein (6.3-8.2) g/dL Albumin (3.5-5.0) g/dL Urine Glucose (UA) (Negative) Urine Ketones (Negative) 10/05/21 10/05/2122 Range/Units 20:46 21:26 22:30 RBC (3.80-5.40) m/uL Hgb (11.4-16.0) gm/dL Hct (34.0-46.0) % MCHC (31.0-37.0) g/dL Neutrophils # (1.3-7.7) k/uL Sodium 129 L (137-145) mmol/L Chloride (98-107) mmol/L Carbon Dioxide 17 L (22-30) mmol/L BUN 37 H (7-17) mg/dL Glucose (74-99) mg/dL POC Glucose (mg/dL) 142 H 150 H (75-99) mg/dL Plasma Lactic Acid Timi (0.7-2.0) mmol/L Alkaline Phosphatase (38-126) U/L Total Protein (6.3-8.2) g/dL Albumin (3.5-5.0) g/dL Urine Glucose (UA) (Negative) Urine Ketones (Negative) 10/05/21 10/06/21 10/06/21 Range/Units 23:32 00:28 01:32 RBC (3.80-5.40) m/uL Hgb (11.4-16.0) gm/dL Hct (34.0-46.0) % MCHC (31.0-37.0) g/dL Neutrophils # (1.3-7.7) k/uL Sodium (137-145) mmol/L Chloride (98-107) mmol/L Carbon Dioxide (22-30) mmol/L BUN (7-17) mg/dL Glucose (74-99) mg/dL POC Glucose (mg/dL) 118 H 109 H 140 H (75-99) mg/dL Plasma Lactic Acid Timi (0.7-2.0) mmol/L Alkaline Phosphatase (38-126) U/L Total Protein (6.3-8.2) g/dL Albumin (3.5-5.0) g/dL Urine Glucose (UA) (Negative) Urine Ketones (Negative) 10/06/21 10/06/21 10/06/21 Range/Units 02:39 03:34 04:49 RBC (3.80-5.40) m/uL Hgb (11.4-16.0) gm/dL Hct (34.0-46.0) % MCHC (31.0-37.0) g/dL Neutrophils # (1.3-7.7) k/uL Sodium (137-145) mmol/L Chloride (98-107) mmol/L Carbon Dioxide (22-30) mmol/L BUN (7-17) mg/dL Glucose (74-99) mg/dL POC Glucose (mg/dL) 172 H 172 H 237 H (75-99) mg/dL Plasma Lactic Acid Timi (0.7-2.0) mmol/L Alkaline Phosphatase (38-126) U/L Total Protein (6.3-8.2) g/dL Albumin (3.5-5.0) g/dL Urine Glucose (UA) (Negative) Urine Ketones (Negative) 10/06/21 10/06/21 10/06/21 Range/Units 05:40 06:32 06:43 RBC 3.61 L (3.80-5.40) m/uL Hgb 10.7 L (11.4-16.0) gm/dL Hct 33.7 L (34.0-46.0) % MCHC (31.0-37.0) g/dL Neutrophils # (1.3-7.7) k/uL Sodium (137-145) mmol/L Chloride (98-107) mmol/L Carbon Dioxide (22-30) mmol/L BUN (7-17) mg/dL Glucose (74-99) mg/dL POC Glucose (mg/dL) 258 H 351 H (75-99) mg/dL Plasma Lactic Acid Timi (0.7-2.0) mmol/L Alkaline Phosphatase (38-126) U/L Total Protein (6.3-8.2) g/dL Albumin (3.5-5.0) g/dL Urine Glucose (UA) (Negative) Urine Ketones (Negative) 10/06/21 10/06/21 10/06/21 Range/Units 06:43 07:31 08:29 RBC (3.80-5.40) m/uL Hgb (11.4-16.0) gm/dL Hct (34.0-46.0) % MCHC (31.0-37.0) g/dL Neutrophils # (1.3-7.7) k/uL Sodium 126 L (137-145) mmol/L Chloride (98-107) mmol/L Carbon Dioxide 18 L (22-30) mmol/L BUN 26 H (7-17) mg/dL Glucose 294 H (74-99) mg/dL POC Glucose (mg/dL) 296 H 269 H (75-99) mg/dL Plasma Lactic Acid Timi (0.7-2.0) mmol/L Alkaline Phosphatase (38-126) U/L Total Protein (6.3-8.2) g/dL Albumin (3.5-5.0) g/dL Urine Glucose (UA) (Negative) Urine Ketones (Negative) 10/06/21 Range/Units 09:26 RBC (3.80-5.40) m/uL Hgb (11.4-16.0) gm/dL Hct (34.0-46.0) % MCHC (31.0-37.0) g/dL Neutrophils # (1.3-7.7) k/uL Sodium (137-145) mmol/L Chloride (98-107) mmol/L Carbon Dioxide (22-30) mmol/L BUN (7-17) mg/dL Glucose (74-99) mg/dL POC Glucose (mg/dL) 198 H (75-99) mg/dL Plasma Lactic Acid Timi (0.7-2.0) mmol/L Alkaline Phosphatase (38-126) U/L Total Protein (6.3-8.2) g/dL Albumin (3.5-5.0) g/dL Urine Glucose (UA) (Negative) Urine Ketones (Negative) Diabetes panel 10/05/21 10/05/21 10/05/21 Range/Units 13:06 16:59 20:46 Sodium 119 L* 122 L 129 L (137-145) mmol/L Potassium 4.5 4.1 3.9 (3.5-5.1) mmol/L Chloride 88 L 93 L 101 (98-107) mmol/L Carbon Dioxide 16 L 17 L 17 L (22-30) mmol/L BUN 40 H 39 H 37 H (7-17) mg/dL Creatinine 0.93 0.87 0.81 (0.52-1.04) mg/dL Glucose 801 H* 592 H* 76 (74-99) mg/dL Calcium 8.7 (8.4-10.2) mg/dL AST 17 (14-36) U/L ALT 22 (4-34) U/L Alkaline Phosphatase 152 H (38-126) U/L Total Protein 6.0 L (6.3-8.2) g/dL Albumin 3.4 L (3.5-5.0) g/dL 10/06/21 Range/Units 06:43 Sodium 126 L (137-145) mmol/L Potassium 4.5 (3.5-5.1) mmol/L Chloride 101 (98-107) mmol/L Carbon Dioxide 18 L (22-30) mmol/L BUN 26 H (7-17) mg/dL Creatinine 0.65 (0.52-1.04) mg/dL Glucose 294 H (74-99) mg/dL Calcium (8.4-10.2) mg/dL AST (14-36) U/L ALT (4-34) U/L Alkaline Phosphatase (38-126) U/L Total Protein (6.3-8.2) g/dL Albumin (3.5-5.0) g/dL Calcium panel 10/05/21 10/05/21 10/05/21 Range/Units 13:06 16:59 20:46 Calcium 8.7 (8.4-10.2) mg/dL Phosphorus 4.1 3.4 (2.5-4.5) mg/dL Albumin 3.4 L (3.5-5.0) g/dL 10/06/21 Range/Units 06:43 Calcium (8.4-10.2) mg/dL Phosphorus 2.8 (2.5-4.5) mg/dL Albumin (3.5-5.0) g/dL Pituitary panel 10/05/21 10/05/21 10/05/21 Range/Units 13:06 16:59 20:46 Sodium 119 L* 122 L 129 L (137-145) mmol/L Potassium 4.5 4.1 3.9 (3.5-5.1) mmol/L Chloride 88 L 93 L 101 (98-107) mmol/L Carbon Dioxide 16 L 17 L 17 L (22-30) mmol/L BUN 40 H 39 H 37 H (7-17) mg/dL Creatinine 0.93 0.87 0.81 (0.52-1.04) mg/dL Glucose 801 H* 592 H* 76 (74-99) mg/dL Calcium 8.7 (8.4-10.2) mg/dL 10/06/21 Range/Units 06:43 Sodium 126 L (137-145) mmol/L Potassium 4.5 (3.5-5.1) mmol/L Chloride 101 (98-107) mmol/L Carbon Dioxide 18 L (22-30) mmol/L BUN 26 H (7-17) mg/dL Creatinine 0.65 (0.52-1.04) mg/dL Glucose 294 H (74-99) mg/dL Calcium (8.4-10.2) mg/dL Adrenal panel 10/05/21 10/05/21 10/05/21 Range/Units 13:06 16:59 20:46 Sodium 119 L* 122 L 129 L (137-145) mmol/L Potassium 4.5 4.1 3.9 (3.5-5.1) mmol/L Chloride 88 L 93 L 101 (98-107) mmol/L Carbon Dioxide 16 L 17 L 17 L (22-30) mmol/L BUN 40 H 39 H 37 H (7-17) mg/dL Creatinine 0.93 0.87 0.81 (0.52-1.04) mg/dL Glucose 801 H* 592 H* 76 (74-99) mg/dL Calcium 8.7 (8.4-10.2) mg/dL Total Bilirubin 0.6 (0.2-1.3) mg/dL AST 17 (14-36) U/L ALT 22 (4-34) U/L Alkaline Phosphatase 152 H (38-126) U/L Total Protein 6.0 L (6.3-8.2) g/dL Albumin 3.4 L (3.5-5.0) g/dL 10/06/21 Range/Units 06:43 Sodium 126 L (137-145) mmol/L Potassium 4.5 (3.5-5.1) mmol/L Chloride 101 (98-107) mmol/L Carbon Dioxide 18 L (22-30) mmol/L BUN 26 H (7-17) mg/dL Creatinine 0.65 (0.52-1.04) mg/dL Glucose 294 H (74-99) mg/dL Calcium (8.4-10.2) mg/dL Total Bilirubin (0.2-1.3) mg/dL AST (14-36) U/L ALT (4-34) U/L Alkaline Phosphatase (38-126) U/L Total Protein (6.3-8.2) g/dL Albumin (3.5-5.0) g/dL - Imaging Chest x-ray: report reviewed, image reviewed CT scan - chest: report reviewed, image reviewed EKG: image reviewed Assessment and Plan Assessment: 1. Fall from standing at home, left-sided rib fractures, concern for flail chest 2. Very small left-sided pneumothorax 3. Pain secondary to above 4. Uncontrolled diabetes with hyperglycemia, blood sugars remain in the high 200s to low 300s 5. Current tobacco dependence 6. COPD 7. Chronic pancreatitis 8. Hypertension 9. Hyperlipidemia 10. History of renal insufficiency 11. History of TIA 12. Bipolar depression 13. Medical noncompliance Plan: The patient was seen and examined in the emergency room. Chart/diagnostics reviewed. The case was discussed last night with Dr. Calvin by the emergency room physicians, will discuss in detail with Dr. Austin today. At this time no surgical intervention is planned. Continue to monitor daily chest x-rays. Pain management per trauma services. Encourage incentive spirometry use. Encourage smoking cessation. Currently on bedrest in C-spine precautions, increase activity as tolerated when able. Medical management of other comorbidities per primary care service. Recommendations to follow. Thank you for this consult, we will continue to follow along with you. I have personally seen and examined the patient, performed the documentation and the assessment and plan as written. Number of minutes spent on the visit: 30. DAKOTA Gr
[2021-10-06 10:36] LABS: Glucose,Whole Blood 141 mg/dL (75-99)
--- NOTE | 2021-10-06 11:17 | P.CNPUL ---
History of Present Illness Consult date: 10/06/21 Requesting physician: Monique Torrez Reason for consult: dyspnea, abnormal CXR/CT (Critical care management) Chief complaint: Fall/trauma History of present illness: This is a 61-year-old female patient with a known history of diabetes mellitus, depression, previous alcohol abuse recovered 5 years, previous opiode abuse, chronic and ongoing tobacco dependence and vaping. She follows with [facility]. apparently, 3 days ago the patient fell down a flight of stairs sustaining injury. She had been seen by [facility] and originally refused to come to the emergency room. They checked in on her again yesterday and had her come to the emergency room. Her urine drug screen for them was positive for morphine which is not prescribed for her. Right hand x-ray revealed a cortical offset involving the distal margin of the middle phalanx fifth digit with mildly displaced fracture. Slight deformity involving the base proximal phalanx third digit suspicious for mildly displaced fracture. Diffuse osteopenia. Computed tomography scan of the brain and C-spine revealed no acute intracranial posttraumatic sequela or acute calvarial bone fracture. Right frontal scalp swelling/hematoma. There is a displaced/avulsion fracture of the left lateral aspect of C1 with bone fragments. Probably acute. No acute traumatic bony injury of the cervical spine. No acute facial bone fractures identified. computed tomography scan of the chest abdomen and pelvis reveals left third through ninth rib fractures suggestive of flail chest. Minimal left pneumothorax, small left pleural effusion and questionable minimal bilateral pulmonary contusions. Stable chronic fracture of T11 vertebrae. Mild upper endplate decompression of L2 and [id number] bodies. Unclear if acute or chronic. No other major acute traumatic injury seen in the abdomen and pelvis. White count 9.3. Hemoglobin 10.7. Platelets 359. Sodium 126. Potassium 4.5. BUN 26. Creatinine 0.65. Initial glucose 801. She was placed on the DKA protocol. Currently on an insulin drip at 4 units per hour. D5 0.45 at 150 ML's per hour. Plans to admit to the intensive care unit. She is seen today in consultation in the emergency department. Currently resting fairly comfortably on a stretcher. She is in a c-collar. She has bruising and ecchymosis around the right eye. Currently maintaining O2 saturations in the mid 90s on room air. Afebrile. Hemodynamically stable. She is on heparin subcu for DVT prophylaxis. Review of Systems REVIEW OF SYSTEMS: CONSTITUTIONAL: Positive for generalized pain secondary to fall/trauma. Denies any recent significant weight loss or weight gain. EYES: Denies change in vision. EARS, NOSE, MOUTH, THROAT: Denies headaches, denies sore throat. CARDIOVASCULAR: Denies chest pain, palpitations or syncopal episodes. RESPIRATORY: Denies shortness of breath, cough, congestion or hemoptysis. GASTROINTESTINAL: Denies change in appetite, denies abdominal pain GENITOURINARY: Denies hematuria, denies infections. MUSKULOSKELETAL: Multiple areas of pain secondary to trauma/fall. INTEGUMENTARY: Denies rash, denies eczema. NEUROLOGICAL: Denies recent memory loss, no recent seizure activity. PSYCHIATRIC: Denies anxiety, denies depression. HEMATOLOGIC/LYMPHATIC: Denies anemia, denies enlarged lymph nodes. 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 RT 3RD/4TH FINGER PARTIAL AMP D/T INJURY, lt ureter stent. COLONOSCOPY/POLYPECTOMY Past Anesthesia/Blood Transfusion Reactions: Motion Sickness, Postoperative Naus ea & Vomiting (PONV) Past Psychological History: Anxiety, Bipolar, Depression, PTSD, Schizophrenia Smoking Status: Current every day smoker Past Alcohol Use History: None Reported Past Drug Use History: Marijuana, Prescription Drug Abuse - Past Family History Father Family Medical History: Liver Disease Additional Family Medical History / Comment(s): Father at age 78 from cirrhosis of the liver. Mother Family Medical History: No Reported History Additional Family Medical History / Comment(s): Mother is alive in her 80s Sister(s) Family Medical History: Coronary Artery Disease (CAD) Additional Family Medical History / Comment(s): Patient has 2 sisters and one has from an overdose. She has 1 brother with no major medical problems. 4cm aortic aneurysm Medications and Allergies Home Medications Medication Instructions Recorded Confirmed Type Omeprazole 20 mg PO DAILY 04/05/18 10/05/21 History QUEtiapine [SEROquel] 100 mg PO HS 09/18/20 10/05/21 History hydrOXYzine pamoate [hydrOXYzine 25 mg PO BID PRN 09/18/20 10/05/21 History PAMOATE] metFORMIN HCL [Glucophage] 850 mg PO BID 09/18/20 10/05/21 History ARIPiprazole [Abilify Maintena] 300 mg PO QMONTHLY 06/30/21 10/05/21 History Ascorbic Acid [Vitamin C] 1,000 mg PO DAILY 06/30/21 10/05/21 History Cholecalciferol [Vitamin D3 (25 25 mcg PO DAILY 06/30/21 10/05/21 History Mcg = 1000 Iu)] Lshmsc-Ihfutudw-Dmugkyy [Zenpep 10] 4 cap PO AC-TID 06/30/21 10/05/21 History lamoTRIgine 200 mg PO DAILY 06/30/21 10/05/21 History Allergies Allergy/AdvReac Type Severity Reaction Status Date / Time No Known Allergies Allergy Verified 10/05/21 13:39 Physical Exam Vitals: Vital Signs Temp Pulse Resp BP Pulse Ox 10/06/21 10:41 90 16 110/72 95 10/06/21 09:27 77 16 126/79 95 10/06/21 07:52 98 10/06/21 07:30 90 18 134/85 100 10/06/21 06:29 79 18 154/82 100 10/06/21 04:35 76 18 126/72 94 L 10/06/21 03:17 97.9 F 73 16 140/92 93 L 10/06/21 02:00 67 16 121/71 100 10/06/21 01:12 100 10/06/21 01:00 77 16 113/85 100 10/06/21 00:00 74 14 104/68 100 10/05/21 23:05 70 16 119/76 100 10/05/21 22:03 81 18 114/77 100 10/05/21 21:21 73 18 105/67 100 10/05/21 19:39 80 18 112/69 100 04/13/22 18:00 98.0 F 82 18 110/75 100 10/05/21 13:37 59 L 18 105/62 96 10/05/21 12:32 97 F L 57 L 16 107/70 96 Intake and Output 10/05/21 10/06/21 10/06/21 22:59 06:59 14:59 Intake Total 22.038 9.887 14.296 Output Total 225 930 Balance -202.962 -920.113 14.296 Intake: Intake, IV Titration 22.038 9.887 14.296 Amount Insulin Regular 100 unit 22.038 9.887 14.296 In Sodium Chloride 0.9% 100 ml @ 0.1 UNITS/KG/HR 5.268 mls/hr IV .[id number] [facility] Rx#:[id number] Output: Urine 225 930 Uretheral (Martinez) 225 GENERAL EXAM: Alert, oriented, frail 61-year-old female patient, on room air, fairly comfortable in no apparent distress. HEAD: Ecchymosis and bruising around the right orbit EYES: Normal reaction of pupils, equal size. NOSE: Clear with pink turbinates. THROAT: No erythema or exudates. NECK: Currently in a c-collar CHEST: No chest wall deformity. LUNGS: Equal air entry with crackles in the left base. CVS: S1 and S2 normal with no audible murmur, regular rhythm. ABDOMEN: No hepatosplenomegaly, normal bowel sounds, no guarding or rigidity. SPINE: No scoliosis or deformity SKIN: No rashes CENTRAL NERVOUS SYSTEM: No focal deficits, tone is normal in all 4 extremities. EXTREMITIES: Edema of the right hand. No clubbing, no cyanosis. Peripheral p ulses are intact. Results - Laboratory Findings CBC and BMP: 10/06/21 06:43 10/06/21 06:43 Abnormal lab findings: Abnormal Labs 10/05/21 10/05/21 10/05/21 12:59 13:06 13:41 RBC Hgb Hct MCHC 30.5 L Neutrophils # 8.2 H Sodium 119 L* Chloride 88 L Carbon Dioxide 16 L BUN 40 H Glucose 801 H* POC Glucose (mg/dL) Plasma Lactic Acid Timi Alkaline Phosphatase 152 H Total Protein 6.0 L Albumin 3.4 L Urine Glucose (UA) 4+ H Urine Ketones 1+ H 10/05/21 10/05/21 10/05/21 16:28 16:59 17:35 RBC Hgb Hct MCHC Neutrophils # Sodium 122 L Chloride 93 L Carbon Dioxide 17 L BUN 39 H Glucose 592 H* POC Glucose (mg/dL) >600 H 594 H Plasma Lactic Acid Timi Alkaline Phosphatase Total Protein Albumin Urine Glucose (UA) Urine Ketones 10/05/21 10/05/21 10/05/21 17:59 18:33 19:38 RBC Hgb Hct MCHC Neutrophils # Sodium Chloride Carbon Dioxide BUN Glucose POC Glucose (mg/dL) 405 H 254 H Plasma Lactic Acid Timi 2.8 H* Alkaline Phosphatase Total Protein Albumin Urine Glucose (UA) Urine Ketones 10/05/21 10/05/21 10/05/21 20:46 21:26 22:30 RBC Hgb Hct MCHC Neutrophils # Sodium 129 L Chloride Carbon Dioxide 17 L BUN 37 H Glucose POC Glucose (mg/dL) 142 H 150 H Plasma Lactic Acid Timi Alkaline Phosphatase Total Protein Albumin Urine Glucose (UA) Urine Ketones 10/05/21 10/06/21 10/06/21 23:32 00:28 01:32 RBC Hgb Hct MCHC Neutrophils # Sodium Chloride Carbon Dioxide BUN Glucose POC Glucose (mg/dL) 118 H 109 H 140 H Plasma Lactic Acid Timi Alkaline Phosphatase Total Protein Albumin Urine Glucose (UA) Urine Ketones 10/06/21 10/06/21 10/06/21 02:39 03:34 04:49 RBC Hgb Hct MCHC Neutrophils # Sodium Chloride Carbon Dioxide BUN Glucose POC Glucose (mg/dL) 172 H 172 H 237 H Plasma Lactic Acid Timi Alkaline Phosphatase Total Protein Albumin Urine Glucose (UA) Urine Ketones 10/06/21 10/06/21 10/06/21 05:40 06:32 06:43 RBC 3.61 L Hgb 10.7 L Hct 33.7 L MCHC Neutrophils # Sodium Chloride Carbon Dioxide BUN Glucose POC Glucose (mg/dL) 258 H 351 H Plasma Lactic Acid Timi Alkaline Phosphatase Total Protein Albumin Urine Glucose (UA) Urine Ketones 10/06/21 10/06/21 10/06/21 06:43 07:31 08:29 RBC Hgb Hct MCHC Neutrophils # Sodium 126 L Chloride Carbon Dioxide 18 L BUN 26 H Glucose 294 H POC Glucose (mg/dL) 296 H 269 H Plasma Lactic Acid Timi Alkaline Phosphatase Total Protein Albumin Urine Glucose (UA) Urine Ketones 10/06/21 10/06/21 09:26 10:34 RBC Hgb Hct MCHC Neutrophils # Sodium Chloride Carbon Dioxide BUN Glucose POC Glucose (mg/dL) 198 H 141 H Plasma Lactic Acid Timi Alkaline Phosphatase Total Protein Albumin Urine Glucose (UA) Urine Ketones - Diagnostic Findings Chest x-ray: image reviewed CT scan - chest: image reviewed Assessment and Plan Assessment: 1 Acute trauma status post fall down a flight of stairs that happened on 10/03/2021. Presented to the emergency room on 10/05/2021. 2 Acute hypoxemic respiratory failure initially requiring a nonrebreather mask, secondary to multiple left rib fractures including 3 through 9 suggestive of flail chest. Minimal left pneumothorax. Small left pleural effusion and questionable minimal bilateral pulmonary contusions. 3 Acute C1 C-spine fracture, in a c-collar 4 Mildly displaced fractures of the right middle phalanx fifth digit and proximal phalanx third digit 5 Stable chronic fracture of T11 vertebral body. 6 Diabetes mellitus presenting with DKA with blood sugar greater than 800 7 Chronic and ongoing tobacco dependence including vaping 8 History of opioid abuse 9 History of alcohol abuse, recovered 5 years 10 History of CVA/TIA 11 History of chronic pancreatitis 12 History of bipolar disorder/schizophrenia/PTSD Plan: The patient was seen and evaluated Chest x-ray, CAT scans and labs reviewed Titrate the FiO2 as tolerated Continue DKA protocol If her gap closes could downgrade from ICU Educated regarding the importance of complete smoking cessation NicoDerm patch ordered DuoNeb inhalations ordered Educated regarding the importance of the incentive spirometer Heparin for DVT prophylaxis CT surgery and orthopedics consulted We will continue to follow and make further recommendations based on her clinical status I have personally seen and examined the patient, performed the documentation and the assessment and plan as written. Number of minutes spent on the visit:20
[2021-10-06 11:34] LABS: Glucose,Whole Blood 108 mg/dL (75-99)
[2021-10-06] MEDS: MORPHINE SULFATE 4 MG/ML SYRINGE IVP PRN ×4 (12:04→23:58)
[2021-10-06 12:34] LABS: African American GFR (CKD) >90 (>60 ml/min/1.73 sqM); Anion Gap 6 mmol/L; Blood Urea Nitrogen 22 mg/dL (7-17); Carbon Dioxide 21 mmol/L (22-30); Chloride 102 mmol/L (98-107); Glucose 99 mg/dL (74-99); Non-African American GFR(CKD) >90 (>60 ml/min/1.73 sqM); Phosphorus 2.2 mg/dL (2.5-4.5); Sodium 129 mmol/L (137-145)
[2021-10-06 12:45] LABS: Glucose,Whole Blood 181 mg/dL (75-99)
[2021-10-06] MEDS: INSULIN ASPART (NovoLOG) 100 UNIT/ML VIAL SQ SCH ×3 (13:17→20:53)
--- NOTE | 2021-10-06 14:28 | P.CONS ---
History of Present Illness - Reason for Consult Consult date: 10/06/21 Medical management - Chief Complaint Status post fall. - History of Present Illness Patient is a 61-year-old female with a known history of diabetes type 2 on metformin and insulin sliding scale, GERD, hypertension, hyperlipidemia, history of chronic pancreatitis and chronic pain, history of throat cancer at age 6 and bilateral peripheral neuropathy diabetic, anxiety/depression/bipolar disorder PTSD and schizophrenia and currently everyday smoker and marijuana use and also prescription drug abuse history presents to ER status post fall. Patient states that he was coming out of the bathroom and suddenly tipped over and fell on her right side. Patient fell down numerous steps then was complaining of her pain over the right side of the face and redness around the right eye. Patient is a lso complaining of lower rib pain and bruising for multiple areas. Patient otherwise denies any complaints of fever or chills. Denies any recent illnesses. Patient was feeling well until she fell on the stairs. Denied any recent illnesses. Evidently patient has been having polyuria and generalized weakness recently. X-ray of the right hand on admission showed there is cortical offset involving the distal margin of the middle phalanx fifth digit correlate for mildly displaced fracture. Slightly deformed involving the base of the proximal phalanx of the third digit, postsurgical changes in the diffuse osteopenia. CT head and neck and cervical spine showed no acute intracranial posttraumatic sequelae are acute calvarial bone fractures. Right frontal scalp swelling, hematoma.Medical management status post fall. Patient CT showed no acute facial bone fracture identified. Soft tissue swelling and other incidental findings. CT chest abdomen pelvis showed left third down to ninth rib fractures suggestive of flail chest. Correlate clinically. Associated minimal left pneumothorax, small left pleural effusion and some questionable minimal bilateral pulmonary co ntusions. Stable chronic fracture of T11 vertebral body. Mild upper endplate T2 pression of L2 on L5 vertebral bodies not appreciated previously. EKG showed normal sinus rhythm Laboratory data showed WBC 10.4 hemoglobin 12.0 and platelets 403 Sodium 119 potassium 4.5 chloride 88 bicarb is 16 BUN 14 and creatinine 0.93 and blood sugar was 801 on admission Alk phos 152 albumin 3.4 urinalysis showed 4+ glucose and 1+ ketones Review of Systems Constitutional: Patient denies any fever or chills . Generalized weakness and tightness.. Abdomen: Patient denied nausea vomiting and diarrhea and abdominal pain. Cardiovascular: Patient denies any chest pain or short of breath no palpitations. Respiratory: patient denied any cough is from production. No shortness of breath Neurologic: Patient denied any numbness or tingling headache. Musculoskeletal: Patient denies any complaints of joint swelling or deformity. Complains of left-sided rib pain. Skin: Negative Psychiatric: Negative Endocrine: No heat or cold intolerance. No recent weight gain. Genitourinary: No dysuria or hematuria. All other 14 point ROS negative except the above Past Medical History Past Medical History: Cancer, CVA/TIA, Diabetes Mellitus, GERD/Reflux, Hyperlipidemia, Renal Disease Additional Past Medical History / Comment(s): Chronic pancreatitis,wt loss of 60-70 pounds over last year, HEART MURMUR AND ENLARGED AORTA, tia's, colon polyps-benign, "blood pressure tends to run low ended up in ICU" pt states recent UTI treated,merle neuropathy,throat CA at age 6,chronic bronchitis History of Any Multi-Drug Resistant Organisms: MRSA Year Discovered:: 2016 MDRO Source:: face Past Surgical History: Appendectomy Additional Past Surgical History / Comment(s): CYST REMOVED FROM NECK. RT 3RD/4TH FINGER PARTIAL AMP D/T INJURY, lt ureter stent. COLONOSCOPY/POLYPECTOMY Past Anesthesia/Blood Transfusion Reactions: Motion Sickness, Postoperative N ausea & Vomiting (PONV) Past Psychological History: Anxiety, Bipolar, Depression, PTSD, Schizophrenia Smoking Status: Current every day smoker Past Alcohol Use History: None Reported Past Drug Use History: Marijuana, Prescription Drug Abuse - Past Family History Father Family Medical History: Liver Disease Additional Family Medical History / Comment(s): Father at age 78 from cirrhosis of the liver. Mother Family Medical History: No Reported History Additional Family Medical History / Comment(s): Mother is alive in her 80s Sister(s) Family Medical History: Coronary Artery Disease (CAD) Additional Family Medical History / Comment(s): Patient has 2 sisters and one has from an overdose. She has 1 brother with no major medical problems. 4cm aortic aneurysm Medications and Allergies Home Medications Medication Instructions Recorded Confirmed Type Omeprazole 20 mg PO DAILY 04/05/18 10/05/21 History QUEtiapine [SEROquel] 100 mg PO HS 09/18/20 10/05/21 History hydrOXYzine pamoate [hydrOXYzine 25 mg PO BID PRN 09/18/20 10/05/21 History PAMOATE] metFORMIN HCL [Glucophage] 850 mg PO BID 09/18/20 10/05/21 History ARIPiprazole [Abilify Maintena] 300 mg PO QMONTHLY 06/30/21 10/05/21 History Ascorbic Acid [Vitamin C] 1,000 mg PO DAILY 06/30/21 10/05/21 History Cholecalciferol [Vitamin D3 (25 25 mcg PO DAILY 06/30/21 10/05/21 History Mcg = 1000 Iu)] [id number] [Zenpep 10] 4 cap PO AC-TID 06/30/21 10/05/21 History lamoTRIgine 200 mg PO DAILY 06/30/21 10/05/21 History Allergies Allergy/AdvReac Type Severity Reaction Status Date / Time No Known Allergies Allergy Verified 10/05/21 13:39 Physical Exam Vitals: Vital Signs Temp Pulse Resp BP Pulse Ox 10/06/21 09:27 77 16 126/79 95 10/06/21 07:52 98 10/06/21 07:30 90 18 134/85 100 10/06/21 06:29 79 18 154/82 100 10/06/21 04:35 76 18 126/72 94 L 10/06/21 03:17 97.9 F 73 16 140/92 93 L 10/06/21 02:00 67 16 121/71 100 10/06/21 01:12 100 10/06/21 01:00 77 16 113/85 100 10/06/21 00:00 74 14 104/68 100 10/05/21 23:05 70 16 119/76 100 10/05/21 22:03 81 18 114/77 100 10/05/21 21:21 73 18 105/67 100 10/05/21 19:39 80 18 112/69 100 10/05/21 18:00 98.0 F 82 18 110/75 100 10/05/21 13:37 59 L 18 105/62 96 10/05/21 12:32 97 F L 57 L 16 107/70 96 Intake and Output 10/05/21 10/06/21 10/06/21 22:59 06:59 14:59 Intake Total 22.038 9.887 9.411 Output Total 225 930 Balance -202.962 -920.113 9.411 Intake: Intake, IV Titration 22.038 9.887 9.411 Amount Insulin Regular 100 unit 22.038 9.887 9.411 In Sodium Chloride 0.9% 100 ml @ 0.1 UNITS/KG/HR 5.268 mls/hr IV .[id number] [facility] Rx#:[id number] Output: Urine 225 930 Uretheral (Martinez) 225 PHYSICAL EXAMINATION: Patient is lying in the bed comfortably, no acute distress, awake alert and oriented.. HEENT: Normocephalic. Neck is supple. Pupils reactive. Bruising around the rig ht eye Nostrils clear. Oral cavity is moist. Neck reveals no JVD, carotid bruits, or thyromegaly. CHEST EXAMINATION: Trachea is central. Symmetrical expansion. Bibasilar diminished sounds. No wheezing or rhonchi.. CARDIAC: Normal S1, S2 with no gallops. No murmurs ABDOMEN: Soft. Bowel sounds normal. No organomegaly. No abdominal bruits. Extremities: reveal no edema. No clubbing or cyanosis Neurologically awake, alert, oriented x3 with well-coordinated movements. No focal deficits noted Skin: No rash or skin lesions. Psychiatric: Coperative. Nonsuicidal, anxious. Musculoskeletal: No joint swelling or deformity. Normal range of motion. Results CBC & Chem 7: 10/06/21 06:43 10/06/21 11:40 Labs: Abnormal Lab Results - Last 24 Hours (Table) 10/05/21 10/05/21 10/05/21 Range/Units 12:59 13:06 13:41 RBC (3.80-5.40) m/uL Hgb (11.4-16.0) gm/dL Hct (34.0-46.0) % MCHC 30.5 L (31.0-37.0) g/dL Neutrophils # 8.2 H (1.3-7.7) k/uL Sodium 119 L* (137-145) mmol/L Chloride 88 L (98-107) mmol/L Carbon Dioxide 16 L (22-30) mmol/L BUN 40 H (7-17) mg/dL Glucose 801 H* (74-99) mg/dL POC Glucose (mg/dL) (75-99) mg/dL Plasma Lactic Acid Timi (0.7-2.0) mmol/L Alkaline Phosphatase 152 H (38-126) U/L Total Protein 6.0 L (6.3-8.2) g/dL Albumin 3.4 L (3.5-5.0) g/dL Urine Glucose (UA) 4+ H (Negative) Urine Ketones 1+ H (Negative) 10/05/21 10/05/21 10/05/21 Range/Units 16:28 16:59 17:35 RBC (3.80-5.40) m/uL Hgb (11.4-16.0) gm/dL Hct (34.0-46.0) % MCHC (31.0-37.0) g/dL Neutrophils # (1.3-7.7) k/uL Sodium 122 L (137-145) mmol/L Chloride 93 L (98-107) mmol/L Carbon Dioxide 17 L (22-30) mmol/L BUN 39 H (7-17) mg/dL Glucose 592 H* (74-99) mg/dL POC Glucose (mg/dL) >600 H 594 H (75-99) mg/dL Plasma Lactic Acid Timi (0.7-2.0) mmol/L Alkaline Phosphatase (38-126) U/L Total Protein (6.3-8.2) g/dL Albumin (3.5-5.0) g/dL Urine Glucose (UA) (Negative) Urine Ketones (Negative) 10/05/21 10/05/21 10/05/21 Range/Units 17:59 18:33 19:38 RBC (3.80-5.40) m/uL Hgb (11.4-16.0) gm/dL Hct (34.0-46.0) % MCHC (31.0-37.0) g/dL Neutrophils # (1.3-7.7) k/uL Sodium (137-145) mmol/L Chloride (98-107) mmol/L Carbon Dioxide (22-30) mmol/L BUN (7-17) mg/dL Glucose (74-99) mg/dL POC Glucose (mg/dL) 405 H 254 H (75-99) mg/dL Plasma Lactic Acid Timi 2.8 H* (0.7-2.0) mmol/L Alkaline Phosphatase (38-126) U/L Total Protein (6.3-8.2) g/dL Albumin (3.5-5.0) g/dL Urine Glucose (UA) (Negative) Urine Ketones (Negative) 10/05/21 10/05/21 10/05/21 Range/Units 20:46 21:26 22:30 RBC (3.80-5.40) m/uL Hgb (11.4-16.0) gm/dL Hct (34.0-46.0) % MCHC (31.0-37.0) g/dL Neutrophils # (1.3-7.7) k/uL Sodium 129 L (137-145) mmol/L Chloride (98-107) mmol/L Carbon Dioxide 17 L (22-30) mmol/L BUN 37 H (7-17) mg/dL Glucose (74-99) mg/dL POC Glucose (mg/dL) 142 H 150 H (75-99) mg/dL Plasma Lactic Acid Timi (0.7-2.0) mmol/L Alkaline Phosphatase (38-126) U/L Total Protein (6.3-8.2) g/dL Albumin (3.5-5.0) g/dL Urine Glucose (UA) (Negative) Urine Ketones (Negative) 10/05/21 10/06/21 10/06/21 Range/Units 23:32 00:28 01:32 RBC (3.80-5.40) m/uL Hgb (11.4-16.0) gm/dL Hct (34.0-46.0) % MCHC (31.0-37.0) g/dL Neutrophils # (1.3-7.7) k/uL Sodium (137-145) mmol/L Chloride (98-107) mmol/L Carbon Dioxide (22-30) mmol/L BUN (7-17) mg/dL Glucose (74-99) mg/dL POC Glucose (mg/dL) 118 H 109 H 140 H (75-99) mg/dL Plasma Lactic Acid Timi (0.7-2.0) mmol/L Alkaline Phosphatase (38-126) U/L Total Protein (6.3-8.2) g/dL Albumin (3.5-5.0) g/dL Urine Glucose (UA) (Negative) Urine Ketones (Negative) 10/06/21 10/06/21 10/06/21 Range/Units 02:39 03:34 04:49 RBC (3.80-5.40) m/uL Hgb (11.4-16.0) gm/dL Hct (34.0-46.0) % MCHC (31.0-37.0) g/dL Neutrophils # (1.3-7.7) k/uL Sodium (137-145) mmol/L Chloride (98-107) mmol/L Carbon Dioxide (22-30) mmol/L BUN (7-17) mg/dL Glucose (74-99) mg/dL POC Glucose (mg/dL) 172 H 172 H 237 H (75-99) mg/dL Plasma Lactic Acid Timi (0.7-2.0) mmol/L Alkaline Phosphatase (38-126) U/L Total Protein (6.3-8.2) g/dL Albumin (3.5-5.0) g/dL Urine Glucose (UA) (Negative) Urine Ketones (Negative) 10/06/21 10/06/21 10/06/21 Range/Units 05:40 06:32 06:43 RBC 3.61 L (3.80-5.40) m/uL Hgb 10.7 L (11.4-16.0) gm/dL Hct 33.7 L (34.0-46.0) % MCHC (31.0-37.0) g/dL Neutrophils # (1.3-7.7) k/uL Sodium (137-145) mmol/L Chloride (98-107) mmol/L Carbon Dioxide (22-30) mmol/L BUN (7-17) mg/dL Glucose (74-99) mg/dL POC Glucose (mg/dL) 258 H 351 H (75-99) mg/dL Plasma Lactic Acid Timi (0.7-2.0) mmol/L Alkaline Phosphatase (38-126) U/L Total Protein (6.3-8.2) g/dL Albumin (3.5-5.0) g/dL Urine Glucose (UA) (Negative) Urine Ketones (Negative) 10/06/21 10/06/21 10/06/21 Range/Units 06:43 07:31 08:29 RBC (3.80-5.40) m/uL Hgb (11.4-16.0) gm/dL Hct (34.0-46.0) % MCHC (31.0-37.0) g/dL Neutrophils # (1.3-7.7) k/uL Sodium 126 L (137-145) mmol/L Chloride (98-107) mmol/L Carbon Dioxide 18 L (22-30) mmol/L BUN 26 H (7-17) mg/dL Glucose 294 H (74-99) mg/dL POC Glucose (mg/dL) 296 H 269 H (75-99) mg/dL Plasma Lactic Acid Timi (0.7-2.0) mmol/L Alkaline Phosphatase (38-126) U/L Total Protein (6.3-8.2) g/dL Albumin (3.5-5.0) g/dL Urine Glucose (UA) (Negative) Urine Ketones (Negative) 10/06/21 Range/Units 09:26 RBC (3.80-5.40) m/uL Hgb (11.4-16.0) gm/dL Hct (34.0-46.0) % MCHC (31.0-37.0) g/dL Neutrophils # (1.3-7.7) k/uL Sodium (137-145) mmol/L Chloride (98-107) mmol/L Carbon Dioxide (22-30) mmol/L BUN (7-17) mg/dL Glucose (74-99) mg/dL POC Glucose (mg/dL) 198 H (75-99) mg/dL Plasma Lactic Acid Timi (0.7-2.0) mmol/L Alkaline Phosphatase (38-126) U/L Total Protein (6.3-8.2) g/dL Albumin (3.5-5.0) g/dL Urine Glucose (UA) (Negative) Urine Ketones (Negative) Assessment and Plan Assessment: Status post mechanical fall and left third down to ninth rib fractures with flail chest. Stable chronic fracture of T11 vertebral body. C1 transverse process fracture. Acute hypoxic respiratory failure requiring nonrebreather on admission due to multiple rib fractures Minimal left-sided pneumothorax and small left pleural effusion Acute diabetic ketoacidosis with blood sugar greater than 800 on admission Diabetic type II Hypovolemic hyponatremia and pseudohyponatremia Chronic pancreatitis Ongoing nicotine Marijuana use Polysubstance use and prescription drug abuse. History of alcohol abuse quit 5 years ago History of CVA/TIA Anxiety/depression/bipolar disorder, PTSD and schizophrenia. DVT prophylaxis with heparin subcu. GI prophylaxis with Protonix Plan: Patient was started on insulin drip and continue with DKA protocol. IV fluids were changed to D5 half-normal saline once her blood sugar down to below 250. Follow-up repeat BMP and patient will be started on subcu insulin once anion gap closes. Patient would like to eat. Currently oxygen is titrated down to nasal cannula and recommends to continue incentive spirometry. Patient states that she is not tolerating Dilaudid Very well and wants to change to morphine. Patient was seen by CT surgery, orthopedic surgery and recommends no surgical intervention at this time. Patient was counseled extensively for drug use and smoking cessation. Prognosis is guarded's time. Continue to follow closely. Thank you for consulting internal medicine service.. Time with Patient: Greater than 30
[2021-10-06] MEDS: INSULIN REGULAR 100 UNIT in SODIUM CHLORIDE 0.9% 100 ML IV SCH (14:32)
[2021-10-06 16:09] LABS: Glucose,Whole Blood 249 mg/dL (75-99)
--- NOTE | 2021-10-06 16:33 | P.PN ---
Subjective Progress Note Date: 10/06/21 CHIEF COMPLAINT: Status post fall with traumatic rib fractures, flail chest, spinal fracture HISTORY OF PRESENT ILLNESS: Patient currently on the cardiac floor. She does complain of left-sided rib pain. She reports difficulty taking in a deep breath. She denies any new pain. She's currently lying in bed. Afebrile. On room air satting at 95%. WBC is 9.3 hemoglobin 10.7 platelets 359 sodium 129 po tassium is 4 creatinine 0.56 glucose 249 chest x-ray left-sided consolidation and pleural effusion with multiple displaced rib fractures. Also suspect a pneumothorax as reported by computed tomography scan measuring approximately 10%. Patient evaluated by cardiothoracic surgery, pulmonary service and medical service. Orthopedic consult pending. No intervention planned per cardiothoracic team. PHYSICAL EXAM: VITAL SIGNS: Reviewed GENERAL: Well-developed in no acute distress. HEENT: No sclera icterus. Extraocular movements grossly intact. Moist buccal mucosa. Head is atraumatic, normocephalic. Hears conversational speech. No nasal drainage. Patient has facial bruising NECK: Patient has c-collar in place CHEST: Non-labored respirations and equal bilateral excursions. CARDIOVASCULAR: Palpable 2+ radial pulses. ABDOMEN: Soft. Nondistended. MUSCULOSKELETAL: No clubbing or cyanosis. NEUROLOGIC: No focal or lateralizing signs. Cranial nerves II through XII grossly intact. PSYCH: Appropriate affect. Alert and oriented to person, place and time. SKIN: Well perfused. Good skin turgor. ASSESSMENT: 1. Status post fall down stairs 2. C1 transverse process fracture 3. Multiple traumatic left rib fractures, 3, 4, 5, 6, 8, 9 with pneumothorax 4. Fall chest left rib fractures 5. Diabetes type 2, uncontrolled with diabetic nephropathy complication 6. Hyperglycemia 7. Hyponatremia 8. Schizophrenia 9. Bipolar disorder 10. Depressive disorder 11. Chronic obstructive pulmonary disease 12. Tobacco abuse disorder 13. Marijuana use 14. Facial bruising 15. Pancreatic insufficiency due to chronic pancreatitis 16. Underweight, BMI 19.1 PLAN: -Continue supportive care -Continue pain management -Encouraged patient to use incentive spirometer -Continue C-spine precautions -Continue her chest x-rays -Continue blood sugar management -DVT prophylaxis subcu heparin Physician Flight Readiness Technician note has been reviewed by physician. Signing provider agrees with the documented findings, assessment, and plan of care. CHIEF COMPLAINT: Status post fall with traumatic rib fractures, flail chest, spinal fracture HISTORY OF PRESENT ILLNESS: The patient is a 61 year old female status post fall from stairs resulting in cervical fracture, multiple left-sided rib fractures and flail test. She reports mostly left-sided chest pain with inspiration. She denies any moderate abdominal pain. Her right hand pain is improved. She complains of the hard neck brace. REVIEW OF ORGAN SYSTEMS: CONSTITUTIONAL: No fevers or chills. BMI 19.1, and overweight. RESPIRATORY: Has chronic bronchitis. Has tobacco abuse disorder or chronic obstructive pulmonary disease. CARDIOVASCULAR: Denies any chest pain, palpitations, or recent heart attacks. Has hyperlipidemia. GASTROINTESTINAL: Denies fatty food intolerance. Denies change in bowel habits and gas bloat. Has gastroesophageal reflux disease. Has pancreatic insufficiency. Has chronic pancreatitis. MUSCULOSKELETAL: Has back pain, stiffness or joint arthritis. PHYSICAL EXAM: VITALS: Reviewed CONSTITUTIONAL: Well developed and in no acute distress. EYES: Conjuctivae without sclera icterus. Extraocular movements grossly intact. Moderate ecchymoses bilateral eyes. HEAD, EARS, NOSE, THROAT: Moist buccal mucosa. Head is atraumatic, normocephalic. Hears conversational speech. No nasal drainage. NECK: Hard cervical collar in place. RESPIRATORY: Non-labored respirations and equal bilateral excursions. Tender left-sided rib cages. CARDIOVASCULAR: Palpable 2+ radial pulses. ABDOMEN: Scaphoid, no peritonitis. MUSCULOSKELETAL: Nail and fingers with good capillary refill. SKIN: Warm and well perfused with good skin turgor. NEUROLOGIC: Cranial nerves II through XII grossly intact. No focal or lateralizing signs. PSYCH: Alert to person. Displays appropriate insight. CLINCAL LABS: Reviewed. Glucose level improved from over 800 over 120s RADIOLOGY: Report reviewed ASSESSMENT: 1. Status post fall down stairs 2. C1 transverse process fracture 3. Multiple traumatic left rib fractures, 3, 4, 5, 6, 8, 9 with pneumothorax 4. Fall chest left rib fractures 5. Diabetes type 2, uncontrolled with diabetic nephropathy complication 6. Hyperglycemia 7. Hyponatremia 8. Schizophrenia 9. Bipolar disorder 10. Depressive disorder 11. Chronic obstructive pulmonary disease 12. Tobacco abuse disorder 13. Marijuana use 14. Facial bruising 15. Pancreatic insufficiency due to chronic pancreatitis 16. Underweight, BMI 19.1 PLAN: 1. Due to severity of pain, recommend epidural assessment by pain management for rib fractures. 2. Pending soft collar for the neck 3. May benefit from rehab assessment Objective - Vital Signs Vital signs: Vital Signs Temp 97.9 F 10/06/21 03:17 Pulse 92 10/06/21 14:29 Resp 16 10/06/21 14:29 BP 118/70 10/06/21 14:29 Pulse Ox 95 10/06/21 10:41 Intake & Output 10/05/21 10/06/21 10/06/21 18:59 06:59 18:59 Intake Total 31.925 16.645 Output Total 225 930 875 Balance -225 -898.075 -858.355 Weight 52.163 kg Intake: Intake, IV Titration 31.925 16.645 Amount Insulin Regular 100 unit 31.925 16.645 In Sodium Chloride 0.9% 100 ml @ 0.1 UNITS/KG/HR 5.268 mls/hr IV .[id number] [facility] Rx#:[id number] Output: Urine 225 930 875 Uretheral (Martinez) 225 - Labs CBC & Chem 7: 10/06/21 06:43 10/06/21 16:18 Labs: Abnormal Lab Results - Last 24 Hours (Table) 10/05/21 10/05/21 10/05/21 Range/Units 16:28 16:59 17:35 RBC (3.80-5.40) m/uL Hgb (11.4-16.0) gm/dL Hct (34.0-46.0) % Sodium 122 L (137-145) mmol/L Chloride 93 L (98-107) mmol/L Carbon Dioxide 17 L (22-30) mmol/L BUN 39 H (7-17) mg/dL Glucose 592 H* (74-99) mg/dL POC Glucose (mg/dL) >600 H 594 H (75-99) mg/dL Plasma Lactic Acid Timi (0.7-2.0) mmol/L Phosphorus (2.5-4.5) mg/dL 10/05/21 10/05/21 10/05/21 Range/Units 17:59 18:33 19:38 RBC (3.80-5.40) m/uL Hgb (11.4-16.0) gm/dL Hct (34.0-46.0) % Sodium (137-145) mmol/L Chloride (98-107) mmol/L Carbon Dioxide (22-30) mmol/L BUN (7-17) mg/dL Glucose (74-99) mg/dL POC Glucose (mg/dL) 405 H 254 H (75-99) mg/dL Plasma Lactic Acid Timi 2.8 H* (0.7-2.0) mmol/L Phosphorus (2.5-4.5) mg/dL 10/05/21 10/05/21 10/05/21 Range/Units 20:46 21:26 22:30 RBC (3.80-5.40) m/uL Hgb (11.4-16.0) gm/dL Hct (34.0-46.0) % Sodium 129 L (137-145) mmol/L Chloride (98-107) mmol/L Carbon Dioxide 17 L (22-30) mmol/L BUN 37 H (7-17) mg/dL Glucose (74-99) mg/dL POC Glucose (mg/dL) 142 H 150 H (75-99) mg/dL Plasma Lactic Acid Timi (0.7-2.0) mmol/L Phosphorus (2.5-4.5) mg/dL 10/05/21 10/06/21 10/06/21 Range/Units 23:32 00:28 01:32 RBC (3.80-5.40) m/uL Hgb (11.4-16.0) gm/dL Hct (34.0-46.0) % Sodium (137-145) mmol/L Chloride (98-107) mmol/L Carbon Dioxide (22-30) mmol/L BUN (7-17) mg/dL Glucose (74-99) mg/dL POC Glucose (mg/dL) 118 H 109 H 140 H (75-99) mg/dL Plasma Lactic Acid Timi (0.7-2.0) mmol/L Phosphorus (2.5-4.5) mg/dL 10/06/21 10/06/21 10/06/21 Range/Units 02:39 03:34 04:49 RBC (3.80-5.40) m/uL Hgb (11.4-16.0) gm/dL Hct (34.0-46.0) % Sodium (137-145) mmol/L Chloride (98-107) mmol/L Carbon Dioxide (22-30) mmol/L BUN (7-17) mg/dL Glucose (74-99) mg/dL POC Glucose (mg/dL) 172 H 172 H 237 H (75-99) mg/dL Plasma Lactic Acid Timi (0.7-2.0) mmol/L Phosphorus (2.5-4.5) mg/dL 10/06/21 10/06/21 10/06/21 Range/Units 05:40 06:32 06:43 RBC 3.61 L (3.80-5.40) m/uL Hgb 10.7 L (11.4-16.0) gm/dL Hct 33.7 L (34.0-46.0) % Sodium (137-145) mmol/L Chloride (98-107) mmol/L Carbon Dioxide (22-30) mmol/L BUN (7-17) mg/dL Glucose (74-99) mg/dL POC Glucose (mg/dL) 258 H 351 H (75-99) mg/dL Plasma Lactic Acid Timi (0.7-2.0) mmol/L Phosphorus (2.5-4.5) mg/dL 10/06/21 10/06/21 10/06/21 Range/Units 06:43 07:31 08:29 RBC (3.80-5.40) m/uL Hgb (11.4-16.0) gm/dL Hct (34.0-46.0) % Sodium 126 L (137-145) mmol/L Chloride (98-107) mmol/L Carbon Dioxide 18 L (22-30) mmol/L BUN 26 H (7-17) mg/dL Glucose 294 H (74-99) mg/dL POC Glucose (mg/dL) 296 H 269 H (75-99) mg/dL Plasma Lactic Acid Timi (0.7-2.0) mmol/L Phosphorus (2.5-4.5) mg/dL 10/06/21 10/06/21 10/06/21 Range/Units 09:26 10:34 11:32 RBC (3.80-5.40) m/uL Hgb (11.4-16.0) gm/dL Hct (34.0-46.0) % Sodium (137-145) mmol/L Chloride (98-107) mmol/L Carbon Dioxide (22-30) mmol/L BUN (7-17) mg/dL Glucose (74-99) mg/dL POC Glucose (mg/dL) 198 H 141 H 108 H (75-99) mg/dL Plasma Lactic Acid Timi (0.7-2.0) mmol/L Phosphorus (2.5-4.5) mg/dL 10/06/21 10/06/21 10/06/21 Range/Units 11:40 12:44 16:07 RBC (3.80-5.40) m/uL Hgb (11.4-16.0) gm/dL Hct (34.0-46.0) % Sodium 129 L (137-145) mmol/L Chloride (98-107) mmol/L Carbon Dioxide 21 L (22-30) mmol/L BUN 22 H (7-17) mg/dL Glucose (74-99) mg/dL POC Glucose (mg/dL) 181 H 249 H (75-99) mg/dL Plasma Lactic Acid Timi (0.7-2.0) mmol/L Phosphorus 2.2 L (2.5-4.5) mg/dL
[2021-10-06 17:02] LABS: Potassium 4.5 mmol/L (3.5-5.1)
[2021-10-06 17:03] LABS: African American GFR (CKD) >90 (>60 ml/min/1.73 sqM); Anion Gap 7 mmol/L; Blood Urea Nitrogen 18 mg/dL (7-17); Carbon Dioxide 18 mmol/L (22-30); Chloride 101 mmol/L (98-107); Glucose 252 mg/dL (74-99); Non-African American GFR(CKD) >90 (>60 ml/min/1.73 sqM); Phosphorus 2.6 mg/dL (2.5-4.5); Sodium 126 mmol/L (137-145)
--- NOTE | 2021-10-06 17:14 | P.CNOR ---
History of Present Illness - [facility] Consult date: 10/06/21 Requesting physician: Erick Carney Consult reason: back pain, neck pain History of present illness: History of Presenting Illness This is a pleasant 61 year old female that presented to the emergency room due to a recent fall on Sunday10/03/21. Patient does have an extensive medical history including current tobacco dependence, COPD, diabetes, chronic pancreatitis, hypertension, hyperlipidemia, renal insufficiency, TIA, bipolar depression, and medical noncompliance. Pt states she had fallen down a flight of stairs. Denies LOC. Patient stated she waited to come in to the emergency room because she thought she would be fine. CT of the cervical spine reveals a displaced/avulsion fracture of the left lateral aspect of C1 with bone fragments. Probably is acute, No other acute traumatic bony injury of the cervical spine. Patient is in a hard c-collar. We will place an order for an [place] brace that may be more comfortable to her. She has bruising and ecchymosis around the right eye. Patient denies any numbness or tinging to bilateral upper extremities. Ms. Tripp is able to move all extremities with FROM. Patient is stable at this time. Review of Systems Pertinent positives and negatives as discussed in HPI, a complete review of systems was performed and all other systems are negative. Physical Examination General: The patient is awake and alert, in no acute distress Skin: Skin is warm and dry with no obvious rashes, Ecchymosis and abrasion above and around right eye. Eye: Pupils are equal, round and reactive to light, extra-ocular movements are intact; there is normal conjunctiva bilaterally. Neck: The neck is supple, there is slight tenderness and ROM limited due to cervical collar. Cardiovascular: There is a regular rate and rhythm. No murmur, rub or gallop is appreciated. Respiratory: Respirations are non-labored, breath sounds are equal, crackles in the left base. Gastrointestinal: Soft, non-distended, non-tender abdomen. Back: There is no tenderness to palpation in the midline, paralumbar, parathoracic or buttocks region. There is no obvious deformity. Musculoskeletal: ROM limited secondary to pain and stiffness from surgical procedure. Shoulder abduction 5/5, elbow flexors 5/5, wrist dorsiflexors 5/5. finger abductor 5/5, process engineering technician 5/5, hip flexor 5/5, knee flexor 5/5, ankle d orsiflexor 5/5, ankle plantarflexion 5/5 and extensor hallucis 5/5. Neurological: CN 2-12 intact. There are no obvious motor or sensory deficits. Movement and coordination equal and intact. Sensory exam to light touch intact C5-T1 and intact from L2-S1. Reflexes 2/4 in bilateral upper and lower ex tremities. Negative Hoffmans, babinski, and clonus signs. Psychiatric: Cooperative, appropriate mood & affect, normal judgment. Assessment and Plan s/p fall with injury Acute fracture of C1, hard c- collar in place. Multiple rib fractures Current tobacco dependence COPD Diabetes Chronic pancreatitis Hypertension Hyperlipidemia Renal insufficiency TIA Bipolar and depression Medical noncompliance. Maintain cervical precautions, we will order an [place] Collar to provide more comfort and support. We will continue to follow patient in hospital. Follow up OP in office. Thank you for consult. I reviewed and discussed this case with my attending Dr. Carney, whom has reviewed this chart and films and is in agreement with assessment and plan of c are as outlined above. I have personally seen and examined the patient, performed the documentation and the assessment and plan as written. Number of minutes spent on the visit: [20m]. Past Medical History Past Medical History: Cancer, CVA/TIA, Diabetes Mellitus, GERD/Reflux, Hyperlipidemia, Renal Disease Additional Past Medical History / Comment(s): Chronic pancreatitis,wt loss of 60-70 pounds over last year, HEART MURMUR AND ENLARGED AORTA, tia's, colon polyps-benign, "blood pressure tends to run low ended up in ICU" pt states recent UTI treated,merle neuropathy,throat CA at age 6,chronic bronchitis History of Any Multi-Drug Resistant Organisms: MRSA Year Discovered:: 2016 MDRO Source:: face Past Surgical History: Appendectomy Additional Past Surgical History / Comment(s): CYST REMOVED FROM NECK. RT 3RD/4TH FINGER PARTIAL AMP D/T INJURY, lt ureter stent. COLONOSCOPY/POLYPECTOMY Past Anesthesia/Blood Transfusion Reactions: Motion Sickness, Postoperative Nausea & Vomiting (PONV) Past Psychological History: Anxiety, Bipolar, Depression, PTSD, Schizophrenia Smoking Status: Current every day smoker Past Alcohol Use History: None Reported Past Drug Use History: Marijuana, Prescription Drug Abuse - Past Family History Father Family Medical History: Liver Disease Additional Family Medical History / Comment(s): Father at age 78 from cirrhosis of the liver. Mother Family Medical History: No Reported History Additional Family Medical History / Comment(s): Mother is alive in her 80s Sister(s) Family Medical History: Coronary Artery Disease (CAD) Additional Family Medical History / Comment(s): Patient has 2 sisters and one has from an overdose. She has 1 brother with no major medical problems. 4cm aortic aneurysm Medications and Allergies Home Medications Medication Instructions Recorded Confirmed Type Omeprazole 20 mg PO DAILY 04/05/18 10/05/21 History QUEtiapine [SEROquel] 100 mg PO HS 09/18/20 10/05/21 History hydrOXYzine pamoate [hydrOXYzine 25 mg PO BID PRN 09/18/20 10/05/21 History PAMOATE] metFORMIN HCL [Glucophage] 850 mg PO BID 09/18/20 10/05/21 History ARIPiprazole [Abilify Maintena] 300 mg PO QMONTHLY 06/30/21 10/05/21 History Ascorbic Acid [Vitamin C] 1,000 mg PO DAILY 06/30/21 10/05/21 History Cholecalciferol [Vitamin D3 (25 25 mcg PO DAILY 06/30/21 10/05/21 History Mcg = 1000 Iu)] [id number]-[id number] [Zenpep 10] 4 cap PO AC-TID 06/30/21 10/05/21 History lamoTRIgine 200 mg PO DAILY 06/30/21 10/05/21 History Allergies Allergy/AdvReac Type Severity Reaction Status Date / Time No Known Allergies Allergy Verified 10/05/21 13:39 Results - Labs Labs: Abnormal Lab Results - Last 24 Hours (Table) 10/05/21 10/05/21 10/05/21 Range/Units 16:59 17:35 17:59 RBC (3.80-5.40) m/uL Hgb (11.4-16.0) gm/dL Hct (34.0-46.0) % Sodium 122 L (137-145) mmol/L Chloride 93 L (98-107) mmol/L Carbon Dioxide 17 L (22-30) mmol/L BUN 39 H (7-17) mg/dL Glucose 592 H* (74-99) mg/dL POC Glucose (mg/dL) 594 H (75-99) mg/dL Plasma Lactic Acid Timi 2.8 H* (0.7-2.0) mmol/L Phosphorus (2.5-4.5) mg/dL 10/05/21 10/05/21 10/05/21 Range/Units 18:33 19:38 20:46 RBC (3.80-5.40) m/uL Hgb (11.4-16.0) gm/dL Hct (34.0-46.0) % Sodium 129 L (137-145) mmol/L Chloride (98-107) mmol/L Carbon Dioxide 17 L (22-30) mmol/L BUN 37 H (7-17) mg/dL Glucose (74-99) mg/dL POC Glucose (mg/dL) 405 H 254 H (75-99) mg/dL Plasma Lactic Acid Timi (0.7-2.0) mmol/L Phosphorus (2.5-4.5) mg/dL 10/05/21 10/05/21 10/05/21 Range/Units 21:26 22:30 23:32 RBC (3.80-5.40) m/uL Hgb (11.4-16.0) gm/dL Hct (34.0-46.0) % Sodium (137-145) mmol/L Chloride (98-107) mmol/L Carbon Dioxide (22-30) mmol/L BUN (7-17) mg/dL Glucose (74-99) mg/dL POC Glucose (mg/dL) 142 H 150 H 118 H (75-99) mg/dL Plasma Lactic Acid Timi (0.7-2.0) mmol/L Phosphorus (2.5-4.5) mg/dL 10/06/21 10/06/21 10/06/21 Range/Units 00:28 01:32 02:39 RBC (3.80-5.40) m/uL Hgb (11.4-16.0) gm/dL Hct (34.0-46.0) % Sodium (137-145) mmol/L Chloride (98-107) mmol/L Carbon Dioxide (22-30) mmol/L BUN (7-17) mg/dL Glucose (74-99) mg/dL POC Glucose (mg/dL) 109 H 140 H 172 H (75-99) mg/dL Plasma Lactic Acid Timi (0.7-2.0) mmol/L Phosphorus (2.5-4.5) mg/dL 10/06/21 10/06/21 10/06/21 Range/Units 03:34 04:49 05:40 RBC (3.80-5.40) m/uL Hgb (11.4-16.0) gm/dL Hct (34.0-46.0) % Sodium (137-145) mmol/L Chloride (98-107) mmol/L Carbon Dioxide (22-30) mmol/L BUN (7-17) mg/dL Glucose (74-99) mg/dL POC Glucose (mg/dL) 172 H 237 H 258 H (75-99) mg/dL Plasma Lactic Acid Tim[place] (0.7-2.0) mmol/L Phosphorus (2.5-4.5) mg/dL 10/06/21 10/06/21 10/06/21 Range/Units 06:32 06:43 06:43 RBC 3.61 L (3.80-5.40) m/uL Hgb 10.7 L (11.4-16.0) gm/dL Hct 33.7 L (34.0-46.0) % Sodium 126 L (137-145) mmol/L Chloride (98-107) mmol/L Carbon Dioxide 18 L (22-30) mmol/L BUN 26 H (7-17) mg/dL Glucose 294 H (74-99) mg/dL POC Glucose (mg/dL) 351 H (75-99) mg/dL Plasma Lactic Acid Tim[place] (0.7-2.0) mmol/L Phosphorus (2.5-4.5) mg/dL 10/06/21 10/06/21 10/06/21 Range/Units 07:31 08:29 09:26 RBC (3.80-5.40) m/uL Hgb (11.4-16.0) gm/dL Hct (34.0-46.0) % Sodium (137-145) mmol/L Chloride (98-107) mmol/L Carbon Dioxide (22-30) mmol/L BUN (7-17) mg/dL Glucose (74-99) mg/dL POC Glucose (mg/dL) 296 H 269 H 198 H (75-99) mg/dL Plasma Lactic Acid Tim[place] (0.7-2.0) mmol/L Phosphorus (2.5-4.5) mg/dL 10/06/21 10/06/21 10/06/21 Range/Units 10:34 11:32 11:40 RBC (3.80-5.40) m/uL Hgb (11.4-16.0) gm/dL Hct (34.0-46.0) % Sodium 129 L (137-145) mmol/L Chloride (98-107) mmol/L Carbon Dioxide 21 L (22-30) mmol/L BUN 22 H (7-17) mg/dL Glucose (74-99) mg/dL POC Glucose (mg/dL) 141 H 108 H (75-99) mg/dL Plasma Lactic Acid Tim[place] (0.7-2.0) mmol/L Phosphorus 2.2 L (2.5-4.5) mg/dL 10/06/21 10/06/21 Range/Units 12:44 16:07 RBC (3.80-5.40) m/uL Hgb (11.4-16.0) gm/dL Hct (34.0-46.0) % Sodium (137-145) mmol/L Chloride (98-107) mmol/L Carbon Dioxide (22-30) mmol/L BUN (7-17) mg/dL Glucose (74-99) mg/dL POC Glucose (mg/dL) 181 H 249 H (75-99) mg/dL Plasma Lactic Acid Tim[place] (0.7-2.0) mmol/L Phosphorus (2.5-4.5) mg/dL H & H 10/05/21 10/06/21 Range/Units 12:59 06:43 Hgb 12.0 10.7 L (11.4-16.0) gm/dL Hct 39.3 33.7 L (34.0-46.0) % Result Diagrams: 10/06/21 06:43 10/06/21 16:18
[2021-10-06 19:13] LABS: Glucose,Whole Blood 390 mg/dL (75-99)
[2021-10-06 20:57] LABS: African American GFR (CKD) >90 (>60 ml/min/1.73 sqM); Anion Gap 11 mmol/L; Blood Urea Nitrogen 18 mg/dL (7-17); Carbon Dioxide 16 mmol/L (22-30); Chloride 99 mmol/L (98-107); Glucose 382 mg/dL (74-99); Non-African American GFR(CKD) >90 (>60 ml/min/1.73 sqM); Phosphorus 2.9 mg/dL (2.5-4.5); Potassium 4.5 mmol/L (3.5-5.1); Sodium 126 mmol/L (137-145)
[2021-10-06] MEDS: QUEtiapine 100 MG TAB PO SCH (21:03)
[2021-10-07 05:56] LABS: Glucose,Whole Blood 319 mg/dL (75-99)
[2021-10-07] MEDS: LIPASE 5,000/PROTEASE 17,000/AMYLASE 24,000 PO SCH ×3 (06:25→17:29)
[2021-10-07] MEDS: INSULIN ASPART (NovoLOG) 100 UNIT/ML VIAL SQ SCH ×4 (06:26→20:13)
[2021-10-07 06:33] LABS: ALT 16 U/L (4-34); AST 17 U/L (14-36); African American GFR (CKD) >90 (>60 ml/min/1.73 sqM); Albumin 3.2 g/dL (3.5-5.0); Alkaline Phosphatase 120 U/L (38-126); Anion Gap 14 mmol/L; Blood Urea Nitrogen 15 mg/dL (7-17); Calcium 8.8 mg/dL (8.4-10.2); Carbon Dioxide 11 mmol/L (22-30); Chloride 103 mmol/L (98-107); Glucose 308 mg/dL (74-99); Non-African American GFR(CKD) >90 (>60 ml/min/1.73 sqM); Potassium 4.6 mmol/L (3.5-5.1); Sodium 128 mmol/L (137-145); Total Bilirubin 0.8 mg/dL (0.2-1.3); Total Protein 6.1 g/dL (6.3-8.2)
[2021-10-07 06:39] LABS: Basophils # (A) 0.1 k/uL (0-0.2); Basophils % (A) 1 %; Eosinophils % (A) 0 %; HCT 39.5 % (34.0-46.0); HGB 12.1 gm/dL (11.4-16.0); Hypochromasia Marked; Lymphocytes % (A) 15 %; MCH 30.4 pg (25.0-35.0); MCHC 30.8 g/dL (31.0-37.0); Mean Platelet Volume 8.6; Monocytes # (A) 0.4 k/uL (0-1.0); Monocytes % (A) 3 %; Neutrophils # (A) 10.2 k/uL (1.3-7.7); Neutrophils % (A) 79 %; Platelet Count 415 k/uL (150-450); RDW 13.5 % (11.5-15.5); WBC 12.9 k/uL (3.8-10.6)
[2021-10-07 06:43] LABS: MCV 98.7 fL (80.0-100.0)
[2021-10-07] MEDS: DOCUSATE 100 MG CAP PO SCH ×2 (08:15→20:10)
[2021-10-07] MEDS: HEPARIN SODIUM,PORCINE/PF 5,000 UNIT/0.5 ML SYRINGE SQ SCH ×2 (08:15→20:10)
[2021-10-07] MEDS: lamoTRIgine 100 MG TAB PO SCH (08:15)
[2021-10-07] MEDS: PANTOPRAZOLE 40 MG TABLET PO SCH (08:15)
[2021-10-07] MEDS: metFORMIN 850 MG TAB PO SCH ×2 (08:16→20:10)
--- NOTE | 2021-10-07 08:19 | XR ---
EXAMINATION TYPE: XR chest 1V portable DATE OF EXAM: 10/07/2021 COMPARISON: 10/06/2021 HISTORY: Pain TECHNIQUE: Single frontal view of the chest is obtained. FINDINGS: There are numerous displaced left-sided rib fractures. There is a large area of consolidat ion and pleural effusion. Vague patchy infiltrate now seen in the right perihilar region. Suspect und erlying COPD. No sizable pneumothorax. IMPRESSION: 1. Left-sided consolidation and pleural effusion persist with numerous displaced adjacent rib fractur es but no sizable pneumothorax. 2. Interval development of patchy right perihilar and upper lobe infiltrate.
[2021-10-07] MEDS: MORPHINE SULFATE 4 MG/ML SYRINGE IVP PRN ×2 (08:23→12:22)
--- NOTE | 2021-10-07 08:33 | P.PN ---
Subjective Progress Note Date: 10/07/21 Principal diagnosis: Fall from standing at home, left-sided rib fractures, concern for flail chest, very small left-sided pneumothorax, uncontrolled diabetes with hyperglycemia. P revious medical history of current tobacco dependence, COPD, chronic pancreatitis, diabetes, hypertension, hyperlipidemia, renal insufficiency, TIA, bipolar depression, medical noncompliance The patient was seen and examined this morning sitting up in bed on the cardiac stepdown unit in no acute distress. She does state pain is controlled on current medication regimen, denies shortness of breath. Remains on 3-4 L nasal cannula with oxygen saturation in the low 90s. Able to achieve 750 mL on her incentive spirometry. Patient is asking to get out of bed and wanting to know when she can go home. The patient was seen by Dr. Austin yesterday who felt no surgical intervention is warranted. No other new concerns. Objective - Vital Signs Vital signs: Vital Signs Temp 98.2 F 10/06/21 20:00 Pulse 105 H 10/07/21 04:00 Resp 22 10/07/21 04:00 BP 118/77 10/07/21 04:00 Pulse Ox 90 L 10/07/21 04:00 Intake & Output 10/06/21 10/07/21 10/07/21 18:59 06:59 18:59 Intake Total 256.645 Output Total 875 750 Balance -618.355 -750 Intake: Intake, IV Titration 16.645 Amount Insulin Regular 100 unit 16.645 In Sodium Chloride 0.9% 100 ml @ 0.1 UNITS/KG/HR 5.268 mls/hr IV .[id number] [facility] Rx#:[id number] Oral 240 Output: Urine 875 750 Stool 0 Urine/Stool Mix 0 Emesis 0 Other: Voiding Method Indwelling Catheter Indwelling Catheter # Voids 0 # Bowel Movements 0 - Exam CONSTITUTIONAL: Appears comfortable, cooperative, no acute distress RESPIRATORY: Lungs sounds diminished bilaterally, left greater than right. Respirations even, nonlabored, no paradoxical movement of the chest wall with respirations. Currently on 4 L nasal cannula with oxygen saturation 90%. Able to achieve 750 mL on incentive spirometry. Strong cough. CARDIOVASCULAR: S1, S2 present. Regular rate and rhythm, sinus rhythm to tach on telemetry. Palpable peripheral pulses bilaterally. No calf pain or tenderness noted. GASTROINTESTINAL: Abdomen soft, nontender, nondistended. Active bowel sounds present 4 quadrants. Tolerating diet. GENITOURINARY: Martinez present draining clear, yellow urine. INTEGUMENTARY: Skin is warm and dry with multiple areas of ecchymosis over the face NEUROLOGIC: Cranial nerves II through XII intact MUSKULOSKELETAL: Able to move all extremities, strength equal bilaterally, c- collar in place PSYCHIATRIC: Alert and oriented to person place and time, appropriate affect, intact judgment and insight - Allied health notes Allied health notes reviewed: nursing - Labs CBC & Chem 7: 10/07/21 06:14 10/07/21 06:14 Labs: Abnormal Lab Results - Last 24 Hours (Table) 10/06/21 10/06/21 10/06/21 Range/Units 06:43 08:29 09:26 WBC (3.8-10.6) k/uL MCHC (31.0-37.0) g/dL Neutrophils # (1.3-7.7) k/uL Sodium 126 L (137-145) mmol/L Carbon Dioxide 18 L (22-30) mmol/L BUN 26 H (7-17) mg/dL Glucose 294 H (74-99) mg/dL POC Glucose (mg/dL) 269 H 198 H (75-99) mg/dL Phosphorus (2.5-4.5) mg/dL Total Protein (6.3-8.2) g/dL Albumin (3.5-5.0) g/dL 10/06/21 10/06/21 10/06/21 Range/Units 10:34 11:32 11:40 WBC (3.8-10.6) k/uL MCHC (31.0-37.0) g/dL Neutrophils # (1.3-7.7) k/uL Sodium 129 L (137-145) mmol/L Carbon Dioxide 21 L (22-30) mmol/L BUN 22 H (7-17) mg/dL Glucose (74-99) mg/dL POC Glucose (mg/dL) 141 H 108 H (75-99) mg/dL Phosphorus 2.2 L (2.5-4.5) mg/dL Total Protein (6.3-8.2) g/dL Albumin (3.5-5.0) g/dL 10/06/21 10/06/21 10/06/21 Range/Units 12:44 16:07 16:18 WBC (3.8-10.6) k/uL MCHC (31.0-37.0) g/dL Neutrophils # (1.3-7.7) k/uL Sodium 126 L (137-145) mmol/L Carbon Dioxide 18 L (22-30) mmol/L BUN 18 H (7-17) mg/dL Glucose 252 H (74-99) mg/dL POC Glucose (mg/dL) 181 H 249 H (75-99) mg/dL Phosphorus (2.5-4.5) mg/dL Total Protein (6.3-8.2) g/dL Albumin (3.5-5.0) g/dL 10/06/21 10/06/21 10/07/21 Range/Units 19:12 20:27 05:55 WBC (3.8-10.6) k/uL MCHC (31.0-37.0) g/dL Neutrophils # (1.3-7.7) k/uL Sodium 126 L (137-145) mmol/L Carbon Dioxide 16 L (22-30) mmol/L BUN 18 H (7-17) mg/dL Glucose 382 H (74-99) mg/dL POC Glucose (mg/dL) 390 H 319 H (75-99) mg/dL Phosphorus (2.5-4.5) mg/dL Total Protein (6.3-8.2) g/dL Albumin (3.5-5.0) g/dL 10/07/21 10/07/21 Range/Units 06:14 06:14 WBC 12.9 H (3.8-10.6) k/uL MCHC 30.8 L (31.0-37.0) g/dL Neutrophils # 10.2 H (1.3-7.7) k/uL Sodium 128 L (137-145) mmol/L Carbon Dioxide 11 L (22-30) mmol/L BUN (7-17) mg/dL Glucose 308 H (74-99) mg/dL POC Glucose (mg/dL) (75-99) mg/dL Phosphorus (2.5-4.5) mg/dL Total Protein 6.1 L (6.3-8.2) g/dL Albumin 3.2 L (3.5-5.0) g/dL - Imaging and Cardiology Chest x-ray: report reviewed, image reviewed Assessment and Plan Assessment: 1. Fall from standing at home, left-sided rib fractures, concern for flail chest 2. Very small left-sided pneumothorax, resolved/not seen on today's chest x-ray 3. Pain secondary to above 4. Uncontrolled diabetes with hyperglycemia 5. Current tobacco dependence 6. COPD 7. Chronic pancreatitis 8. Hypertension 9. Hyperlipidemia 10. History of renal insufficiency 11. History of TIA 12. Bipolar depression 13. Medical noncompliance Plan: 1. No surgical intervention planned at this time. Will monitor daily CXR. If primary service has plans for sending patient home she may follow up with us in 1 week after obtaining CXR 2. Wean O2 as tolerated, encourage incentive spirometry 10 times every hour while awake 3. Encourage smoking cessation 4. Increase activity, ambulate as tolerated 5. Pain management per trauma services 6. Medical management other comorbidities per primary care service
--- NOTE | 2021-10-07 08:53 | P.PN ---
Subjective Progress Note Date: 10/07/21 Principal diagnosis: Status post fall with traumatic injury Patient seen and examined today. Ms. Tripp was laying recumbent in bed. She had just finished her breakfast. Patient denies any pain at this time, she states that her pain is managed with current regimen. Hard c-collar remains present, a prescription for an [place] c-collar was placed on chart. Patient denies any num bness tingling to bilateral upper extremities. NA presented in room to provide Ms. Tripp a bed bath and change linen. Pt was reporting the need to have a BM. Pt denies any loss of bowel or bladder. Objective - Vital Signs Vital signs: Vital Signs Temp 98.2 F 10/06/21 20:00 Pulse 105 H 10/07/21 04:00 Resp 22 10/07/21 04:00 BP 118/77 10/07/21 04:00 Pulse Ox 90 L 10/07/21 04:00 Intake & Output 10/06/21 10/07/21 10/07/21 18:59 06:59 18:59 Intake Total 256.645 Output Total 875 750 Balance -618.355 -750 Intake: Intake, IV Titration 16.645 Amount Insulin Regular 100 unit 16.645 In Sodium Chloride 0.9% 100 ml @ 0.1 UNITS/KG/HR 5.268 mls/hr IV .[id number] [facility] Rx#:[id number] Oral 240 Output: Urine 875 750 Stool 0 Urine/Stool Mix 0 Emesis 0 Other: Voiding Method Indwelling Catheter Indwelling Catheter # Voids 0 # Bowel Movements 0 - Exam Physical Examination General: The patient is awake and alert, in no acute distress Skin: Skin is warm and dry with no obvious rashes, Ecchymosis and abrasion above and around right eye. Eye: Pupils are equal, round and reactive to light, extra-ocular movements are intact; there is normal conjunctiva bilaterally. Neck: The neck is supple, there is slight tenderness and ROM limited due to cervical collar. Cardiovascular: There is a regular rate and rhythm. No murmur, rub or gallop is appreciated. Respiratory: Respirations are non-labored, breath sounds are equal, crackles in the left base. Gastrointestinal: Soft, non-distended, non-tender abdomen. Back: There is no tenderness to palpation in the midline, paralumbar, parathoracic or buttocks region. There is no obvious deformity. Musculoskeletal: ROM limited secondary to pain and stiffness from surgical procedure. Shoulder abduction 5/5, elbow flexors 5/5, wrist dorsiflexors 5/5. finger abductor 5/5, automobile accessories installer 5/5, hip flexor 5/5, knee flexor 5/5, ankle dorsiflexor 5/5, ankle plantarflexion 5/5 and extensor hallucis 5/5. Neurological: CN 2-12 intact. There are no obvious motor or sensory deficits. Movement and coordination equal and intact. Sensory exam to light touch intact C5-T1 and intact from L2-S1. Reflexes 2/4 in bilateral upper and lower extremities. Negative Hoffmans, babinski, and clonus signs. Psychiatric: Cooperative, appropriate mood & affect, normal judgment. - Labs CBC & Chem 7: 10/07/21 06:14 10/07/21 06:14 Labs: Abnormal Lab Results - Last 24 Hours (Table) 10/06/21 10/06/21 10/06/21 Range/Units 06:43 08:29 09:26 WBC (3.8-10.6) k/uL MCHC (31.0-37.0) g/dL Neutrophils # (1.3-7.7) k/uL Sodium 126 L (137-145) mmol/L Carbon Dioxide 18 L (22-30) mmol/L BUN 26 H (7-17) mg/dL Glucose 294 H (74-99) mg/dL POC Glucose (mg/dL) 269 H 198 H (75-99) mg/dL Phosphorus (2.5-4.5) mg/dL Total Protein (6.3-8.2) g/dL Albumin (3.5-5.0) g/dL 10/06/21 10/06/21 10/06/21 Range/Units 10:34 11:32 11:40 WBC (3.8-10.6) k/uL MCHC (31.0-37.0) g/dL Neutrophils # (1.3-7.7) k/uL Sodium 129 L (137-145) mmol/L Carbon Dioxide 21 L (22-30) mmol/L BUN 22 H (7-17) mg/dL Glucose (74-99) mg/dL POC Glucose (mg/dL) 141 H 108 H (75-99) mg/dL Phosphorus 2.2 L (2.5-4.5) mg/dL Total Protein (6.3-8.2) g/dL Albumin (3.5-5.0) g/dL 10/06/21 10/06/21 10/06/21 Range/Units 12:44 16:07 16:18 WBC (3.8-10.6) k/uL MCHC (31.0-37.0) g/dL Neutrophils # (1.3-7.7) k/uL Sodium 126 L (137-145) mmol/L Carbon Dioxide 18 L (22-30) mmol/L BUN 18 H (7-17) mg/dL Glucose 252 H (74-99) mg/dL POC Glucose (mg/dL) 181 H 249 H (75-99) mg/dL Phosphorus (2.5-4.5) mg/dL Total Protein (6.3-8.2) g/dL Albumin (3.5-5.0) g/dL 10/06/21 10/06/21 10/07/21 Range/Units 19:12 20:27 05:55 WBC (3.8-10.6) k/uL MCHC (31.0-37.0) g/dL Neutrophils # (1.3-7.7) k/uL Sodium 126 L (137-145) mmol/L Carbon Dioxide 16 L (22-30) mmol/L BUN 18 H (7-17) mg/dL Glucose 382 H (74-99) mg/dL POC Glucose (mg/dL) 390 H 319 H (75-99) mg/dL Phosphorus (2.5-4.5) mg/dL Total Protein (6.3-8.2) g/dL Albumin (3.5-5.0) g/dL 10/07/21 10/07/21 Range/Units 06:14 06:14 WBC 12.9 H (3.8-10.6) k/uL MCHC 30.8 L (31.0-37.0) g/dL Neutrophils # 10.2 H (1.3-7.7) k/uL Sodium 128 L (137-145) mmol/L Carbon Dioxide 11 L (22-30) mmol/L BUN (7-17) mg/dL Glucose 308 H (74-99) mg/dL POC Glucose (mg/dL) (75-99) mg/dL Phosphorus (2.5-4.5) mg/dL Total Protein 6.1 L (6.3-8.2) g/dL Albumin 3.2 L (3.5-5.0) g/dL Assessment and Plan Assessment: s/p fall with traumatic injury Acute fracture of C1, hard c- collar in place. Multiple rib fractures Current tobacco dependence COPD Diabetes Chronic pancreatitis Hypertension Hyperlipidemia Renal insufficiency TIA Bipolar and depression Medical noncompliance. Plan: Plan: -Appreciate center lead consultant and team management. -Activity: maintain cervical precautions, [place] C-collar script placed on chart. -Pain control: Adequate at this time -Meds: reviewed -DVT PPX: per medicine -Encourage IS 10x/hr -Dispo: We will continue to follow patient in hospital, follow up in office after discharge. *I reviewed and discussed this case with my attending Dr. Carney, whom has reviewed this chart and films and is in agreement with assessment and plan of care as outlined above. I have personally seen and examined the patient, performed the documentation and the assessment and plan as written. Number of minutes spent on the visit: 20m. Time with Patient: Less than 30
[2021-10-07] MEDS ORDERED: INSULIN DETEMIR (LEVEMIR) 100 UNIT/ML SYR SQ ONE (11:00)
[2021-10-07 11:24] LABS: Glucose,Whole Blood 361 mg/dL (75-99)
--- NOTE | 2021-10-07 11:55 | P.PN ---
Subjective Progress Note Date: 10/07/21 Principal diagnosis: Left-sided consolidation and pleural effusion, numerous displaced left-sided rib fractures On 10/07/2021 patient seen in follow-up on selective care unit. She is awake and alert, in no acute distress, she is sitting up in the chair, currently on 2 L of oxygen, her pulse ox is 90-94%, breathing fairly comfortably, she states her pain is much better controlled today. She is working on this and spirometer but only able to achieve 500 on it today. Today's chest x-ray shows a left- sided consolidation and pleural effusion with numerous displaced adjacent rib fractures but no sizable pneumothorax, and interval development of patchy right perihilar and upper lobe infiltrate. Vital signs have been stable, patient has been afebrile, no complaints of cough. Lung sounds are clear, diminished at the bases more so on the left. Today's blood work has been reviewed showing white blood cell count of 12.8, hemoglobin of 12.1, sodium of 128, sodium of 4.6, chloride is 103, CO2 is 11, BUN of 15, creatinine is 0.57. Patient is appropriate, patient is cooperative, very pleasant, she is alert and oriented 3. She is tolerating oral intake, no nausea or vomiting, she is tolerating consistent carb diet. Sodium level has improved, from admission level of 119. She is on IV fluids with 0.9 at a rate of 75 ML per hour. Only one BM recorded. Lung sounds are diminished at the left base, no wheezing noted. Objective - Vital Signs Vital signs: Vital Signs Temp 98.3 F 10/07/21 08:15 Pulse 116 H 10/07/21 08:15 Resp 22 10/07/21 08:15 BP 125/74 10/07/21 08:15 Pulse Ox 94 L 10/07/21 08:15 Intake & Output 10/06/21 10/07/21 10/07/21 18:59 06:59 18:59 Intake Total 256.645 240 Output Total 875 750 350 Balance -618.355 -750 -110 Intake: Intake, IV Titration 16.645 Amount Insulin Regular 100 unit 16.645 In Sodium Chloride 0.9% 100 ml @ 0.1 UNITS/KG/HR 5.268 mls/hr IV .[id number] [facility] Rx#:[id number] Oral 240 240 Output: Urine 875 750 350 Stool 0 Urine/Stool Mix 0 Emesis 0 Other: Voiding Method Indwelling Catheter Indwelling Catheter # Voids 0 # Bowel Movements 0 1 - Exam GENERAL EXAM: Alert, very frail, underweight, 61-year-old white female with a C neck collar, on 2 L of oxygen pulse ox of 94%, sitting up in the recliner comfortable in no apparent distress. HEAD: Normocephalic/atraumatic. Patient has bruising on her face, and right face EYES: Normal reaction of pupils, equal size. Conjunctiva pink, sclera white. NOSE: Clear with pink turbinates. THROAT: No erythema or exudates. NECK: No masses, no JVD, no thyroid enlargement, no adenopathy. C-neck collar present CHEST: No chest wall deformity. Symmetrical expansion. LUNGS: Diminished breath sounds with dullness at the left base CVS: Regular rate and rhythm, normal S1 and S2, no gallops, no murmurs, no rubs ABDOMEN: Soft, nontender. No hepatosplenomegaly, normal bowel sounds, no guarding or rigidity. EXTREMITIES: No clubbing, no edema, no cyanosis, 2+ pulses and upper and lower extremities. MUSCULOSKELETAL: Muscle strength and tone normal. SPINE: No scoliosis or deformity SKIN: No rashes CENTRAL NERVOUS SYSTEM: Alert and oriented -3. No focal deficits, tone is normal in all 4 extremities. PSYCHIATRIC: Alert and oriented -3. Appropriate affect. Intact judgment and insight. - Labs CBC & Chem 7: 10/07/21 06:14 10/07/21 06:14 Labs: Abnormal Lab Results - Last 24 Hours (Table) 10/06/21 10/06/21 10/06/21 Range/Units 11:32 11:40 12:44 WBC (3.8-10.6) k/uL MCHC (31.0-37.0) g/dL Neutrophils # (1.3-7.7) k/uL Sodium 129 L (137-145) mmol/L Carbon Dioxide 21 L (22-30) mmol/L BUN 22 H (7-17) mg/dL Glucose (74-99) mg/dL POC Glucose (mg/dL) 108 H 181 H (75-99) mg/dL Phosphorus 2.2 L (2.5-4.5) mg/dL Total Protein (6.3-8.2) g/dL Albumin (3.5-5.0) g/dL 10/06/21 10/06/21 10/06/21 Range/Units 16:07 16:18 19:12 WBC (3.8-10.6) k/uL MCHC (31.0-37.0) g/dL Neutrophils # (1.3-7.7) k/uL Sodium 126 L (137-145) mmol/L Carbon Dioxide 18 L (22-30) mmol/L BUN 18 H (7-17) mg/dL Glucose 252 H (74-99) mg/dL POC Glucose (mg/dL) 249 H 390 H (75-99) mg/dL Phosphorus (2.5-4.5) mg/dL Total Protein (6.3-8.2) g/dL Albumin (3.5-5.0) g/dL 10/06/21 10/07/21 10/07/21 Range/Units 20:27 05:55 06:14 WBC 12.9 H (3.8-10.6) k/uL MCHC 30.8 L (31.0-37.0) g/dL Neutrophils # 10.2 H (1.3-7.7) k/uL Sodium 126 L (137-145) mmol/L Carbon Dioxide 16 L (22-30) mmol/L BUN 18 H (7-17) mg/dL Glucose 382 H (74-99) mg/dL POC Glucose (mg/dL) 319 H (75-99) mg/dL Phosphorus (2.5-4.5) mg/dL Total Protein (6.3-8.2) g/dL Albumin (3.5-5.0) g/dL 10/07/21 Range/Units 06:14 WBC (3.8-10.6) k/uL MCHC (31.0-37.0) g/dL Neutrophils # (1.3-7.7) k/uL Sodium 128 L (137-145) mmol/L Carbon Dioxide 11 L (22-30) mmol/L BUN (7-17) mg/dL Glucose 308 H (74-99) mg/dL POC Glucose (mg/dL) (75-99) mg/dL Phosphorus (2.5-4.5) mg/dL Total Protein 6.1 L (6.3-8.2) g/dL Albumin 3.2 L (3.5-5.0) g/dL Assessment and Plan Plan: Assessment: #1. Acute hypoxic respiratory failure, related to flail chest, minimal left pneumothorax, multiple left rib fractures including left rib 3 through 9. Small left pleural effusion and questionable minimal bilateral pulmonary contusions #2. Acute trauma status post fall down a flight of stairs on 10/03/2021, patient came into the emergency department on 10/05/2021 #3. Acute C1 fracture, in the C-collar #4. Mildly displaced fractures of the right middle phalanx fifth digit some proximal phalanx of the third digit #5. Stable chronic fracture of T11 vertebral body #6. Diabetes mellitus presenting with diabetic ketoacidosis and blood sugar greater than 800, improved, denying gap has improved, patient has been transitioned to sliding scale NovoLog #7. Acute anion gap and non-anion gap metabolic acidosis, improved #8. History of opioid abuse #9. 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 History of CVA #11. History of bipolar disorder schizophrenia #12. Chronic pancreatitis #13. Chronic and ongoing tobacco dependence including vaping Plan: Chest x-ray has been reviewed We will obtain ultrasound of the chest to check if the left pleural effusion pocket is large enough to drain Maintained pain control Encourage deep breathing and coughing Follow-up chest x-ray in the morning Blood work including a CBC and BMP Orthopedic recommendations Pain service recommendations We'll follow I have personally seen and examined the patient, performed the documentation and the assessment and plan as written. Number of minutes spent on the visit: [10] Time with Patient: Less than 30
[2021-10-07] MEDS: SODIUM BICARBONATE TAB 650 MG TAB PO SCH ×3 (12:17→20:15)
--- NOTE | 2021-10-07 12:26 | US ---
EXAMINATION TYPE: US chest DATE OF EXAM: 10/07/2021 COMPARISON: Chest x-ray earlier today CLINICAL HISTORY: left pleural effusion, possible hemothorax. left pleural effusion seen on xray, mul tiple rib fractures TECHNIQUE: Targeted ultrasound of the posterior lower Left EXAM MEASUREMENTS: Left Pleural Effusion pocket size: 7.7 cm Left skin surface to fluid distance: 2.9 cm Left side NOT marked-frail patient with multiple rib fractures has septations within her pleural effu brittney Pulmonologists are able to review the images in the patient?s EMR. Small to moderate size nonsimple left pleural fluid collection on ultrasound correlates with suspecte d findings on recent x-ray, probable hemothorax. IMPRESSIONS: As above.
[2021-10-07] MEDS: HYDROcodone/APAP 5-325MG 1 EACH TAB PO PRN ×2 (15:46→20:11)
[2021-10-07 16:46] LABS: Glucose,Whole Blood 299 mg/dL (75-99)
[2021-10-07] MEDS: QUEtiapine 100 MG TAB PO SCH (20:11)
[2021-10-07 20:25] LABS: Glucose,Whole Blood 234 mg/dL (75-99)
[2021-10-07 22:10] VITALS: RESP 16
[2021-10-07] MEDS: SODIUM CHLORIDE 0.9% 1,000 ML IV SCH (22:12)
[2021-10-08] MEDS: HYDROcodone/APAP 5-325MG 1 EACH TAB PO PRN ×2 (04:11→09:29)
[2021-10-08 05:58] LABS: Glucose,Whole Blood 209 mg/dL (75-99)
[2021-10-08] MEDS: LIPASE 5,000/PROTEASE 17,000/AMYLASE 24,000 PO SCH (06:26)
[2021-10-08] MEDS: INSULIN ASPART (NovoLOG) 100 UNIT/ML VIAL SQ SCH (06:26)
--- NOTE | 2021-10-08 06:47 | P.PN ---
Subjective Progress Note Date: 10/07/21 CHIEF COMPLAINT: Status post fall with traumatic rib fractures, flail chest, spinal fracture HISTORY OF PRESENT ILLNESS: The patient is a 61 year old female status post fall from stairs resulting in cervical fracture, multiple left-sided rib fractures and flail test. She is laying in bed. She reports left sided chest pain from her rib fractures. She has a hard collar for neck. No reports of abdominal pain. She denies moderate right handed pain. REVIEW OF ORGAN SYSTEMS: CONSTITUTIONAL: No fevers or chills. BMI 19.1, and overweight. RESPIRATORY: Has tobacco abuse disorder or chronic obstructive pulmonary disease. Denies moderate shortness of breath. CARDIOVASCULAR: No cardiac event. GASTROINTESTINAL: Has gastroesophageal reflux disease. Has pancreatic insufficiency. Has chronic pancreatitis. MUSCULOSKELETAL: Has back pain, stiffness or joint arthritis. PHYSICAL EXAM: VITALS: Reviewed CONSTITUTIONAL: Well developed and in no acute distress. EYES: Conjuctivae without sclera icterus. Extraocular movements grossly intact. Moderate ecchymoses bilateral eyes. HEAD, EARS, NOSE, THROAT: Hears conversational speech. No nasal drainage. NECK: Hard cervical collar in place. RESPIRATORY: Non-labored respirations and equal bilateral excursions. Tender left-sided chest wall CARDIOVASCULAR: Palpable 2+ radial pulses. ABDOMEN: Scaphoid, no peritonitis. 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 SKIN: Warm and well perfused with good skin turgor. NEUROLOGIC: Cranial nerves II through XII grossly intact. No focal or lateralizing signs. PSYCH: Alert to person, place. Displays appropriate insight. CLINCAL LABS: Reviewed. WBC elevated 12.5. Sodium low 128 but improved from 119. Glucose down from 801 to 308 STUDIES: Chest xray independently reviewed with moderate left sided pleural effusion. No large pneumothorax. Osteopenia. This is my independent interpretation. RADIOLOGY: Report reviewed. Chest xray confirms new consolidate of right lung, multiple left sided rib fractures and persistent left pleural effusion. Chest US demonstrates septated 7.7 cm left effusion. ASSESSMENT: 1. Status post fall down stairs 2. C1 transverse process fracture 3. Multiple traumatic left rib fractures, 3, 4, 5, 6, 8, 9 with pneumothorax 4. Fall chest left rib fractures 5. Diabetes type 2, uncontrolled with diabetic nephropathy complication 6. Hyperglycemia 7. Hyponatremia 8. Schizophrenia 9. Bipolar disorder 10. Depressive disorder 11. Chronic obstructive pulmonary disease 12. Tobacco abuse disorder 13. Marijuana use 14. Facial bruising 15. Pancreatic insufficiency due to chronic pancreatitis 16. Underweight, BMI 19.1 17. Left plueral effusion PLAN: 1. At this time, she is pending soft collar, Leblanc ordered per Ortho 2. Large plueral effusion, may benefit from thoracocentesis with management per pulmonary and cardiothoracic team 3. Tight glycemic control for hyperglycemia with adjustment of scheduled ins ulin vs infusion 4. Pulmonary toilet with incentive spirometer 5. Pain management services consulted and pending for thoracic rib block. Objective - Vital Signs Vital signs: Vital Signs Temp 97.8 F 10/07/21 20:00 Pulse 93 10/08/21 04:00 Resp 16 10/08/21 04:00 BP 101/68 10/08/21 04:00 Pulse Ox 91 L 10/08/21 04:00 Intake & Output 10/07/21 10/07/21 10/08/21 06:59 18:59 06:59 Intake Total 480 485 Output Total 750 875 Balance -750 -395 485 Intake: Oral 480 485 Output: Urine 750 875 Other: Voiding Method Indwelling Catheter Indwelling Catheter Toilet # Voids 2 # Bowel Movements 2 - Labs CBC & Chem 7: 10/07/21 06:14 10/07/21 06:14 Labs: Abnormal Lab Results - Last 24 Hours (Table) 10/07/21 10/07/21 10/07/21 Range/Units 06:14 06:14 11:23 WBC 12.9 H (3.8-10.6) k/uL MCHC 30.8 L (31.0-37.0) g/dL Neutrophils # 10.2 H (1.3-7.7) k/uL Sodium 128 L (137-145) mmol/L Carbon Dioxide 11 L (22-30) mmol/L Glucose 308 H (74-99) mg/dL POC Glucose (mg/dL) 361 H (75-99) mg/dL Total Protein 6.1 L (6.3-8.2) g/dL Albumin 3.2 L (3.5-5.0) g/dL 10/07/21 10/07/21 10/08/21 Range/Units 16:42 19:56 05:57 WBC (3.8-10.6) k/uL MCHC (31.0-37.0) g/dL Neutrophils # (1.3-7.7) k/uL Sodium (137-145) mmol/L Carbon Dioxide (22-30) mmol/L Glucose (74-99) mg/dL POC Glucose (mg/dL) 299 H 234 H 209 H (75-99) mg/dL Total Protein (6.3-8.2) g/dL Albumin (3.5-5.0) g/dL
--- NOTE | 2021-10-08 07:30 | XR ---
EXAMINATION TYPE: XR chest 1V portable DATE OF EXAM: 10/08/2021 HISTORY: Shortness of breath. COMPARISON: 10/07/2021 TECHNIQUE: Single view of the chest is submitted. FINDINGS: Demonstrated are scattered senescent parenchymal change. Persistent infiltrate right upper lobe. Improving infiltrate and pleural effusion left perihilar and left basilar regions. Multiple left-sided rib fractures redemonstrated. No evidence for sizable pneum othorax. The heart is stable. Hilar and mediastinal structures are within normal limits. Degenerative changes are seen of the dorsal spine. IMPRESSION: 1. Persistent infiltrate right upper lobe. Improving infiltrate and pleural effusion left perihilar and left basilar regions.
[2021-10-08] MEDS: SODIUM BICARBONATE TAB 650 MG TAB PO SCH (09:29)
[2021-10-08] MEDS: DOCUSATE 100 MG CAP PO SCH (09:30)
[2021-10-08] MEDS: PANTOPRAZOLE 40 MG TABLET PO SCH (09:30)
[2021-10-08] MEDS: lamoTRIgine 100 MG TAB PO SCH (09:30)
[2021-10-08] MEDS: metFORMIN 850 MG TAB PO SCH (09:38)
[2021-10-08 09:44] VITALS: BP 95/55; PULSE 99; TEMP 98.2
--- NOTE | 2021-10-11 12:48 | P.DS ---
Providers Date of admission: 10/05/21 18:18 Expected date of discharge: 10/08/21 Attending physician: Modesto Nazario Consults: 10/05/21 17:17 Consult Physician Stat Consulting Provider: Ap Calvin Consult Reason/Comments: flairl chest Do you want consulting provider notified?: Already Contacted Consult Physician Stat Consulting Provider: Erick Carney Consult Reason/Comments: spinal fractures Do you want consulting provider notified?: Already Contacted Consult Physician Stat Consulting Provider: Kathleen Cavazos Consult Reason/Comments: ICU mgmt Do you want consulting provider notified?: Already Contacted Consult to Anesthesia Stat Consulting Provider: Anesthesia,Services Consult Reason/Comments: flail chest 10/05/21 17:20 Consult Physician Stat Consulting Provider: Mark Anthony Mack Consult Reason/Comments: medical management Do you want consulting provider notified?: Yes Primary care physician: Cecilia Cortez - Discharge Diagnosis(es) (1) Bipolar disorder Status: Acute (2) Bipolar disorder, manic Status: Acute Priority: High (3) Compression fracture of T11 vertebra Status: Acute (4) Flail chest Status: Acute (5) Hyperglycemia due to type 2 diabetes mellitus Status: Acute (6) Nicotine dependence Status: Acute Priority: Low (7) Noncompliance with medication regimen Status: Acute (8) Pneumothorax on left Status: Acute (9) Traumatic fracture of ribs of left side with pneumothorax Status: Acute (10) Fall down stairs Status: Acute Hospital Course: HOSPITAL COURSE: The patient is a 61 year old female status post fall from stairs resulting in cervical fracture, multiple left-sided rib fractures and flail test. On admission, patient was hyperglycemia with blood sugars over 800+. Multiple consultants including pulmonary, cardiothoracic, medicine team were consulted. Patient was transferred from trauma service to medicine service due to multiple medical comorbidities. Patient had hard collar for neck fracture in place. Patient complained of appropriate left-sided rib pain for which pain team were consulted. Patient had left pleural effusion which is being monitored by pulmonary. Patient had left AMA. CLINCAL LABS: Reviewed. WBC elevated 12.5. Sodium low 128 but improved from 119. Glucose down from 801 to 308 STUDIES: Chest xray independently reviewed with moderate left sided pleural effusion. No large pneumothorax. Osteopenia. This is my independent interpretation. RADIOLOGY: Report reviewed. Chest xray confirms new consolidate of right lung, multiple left sided rib fractures and persistent left pleural effusion. Chest US demonstrates septated 7.7 cm left effusion. ASSESSMENT: 1. Status post fall down stairs 2. C1 transverse process fracture 3. Multiple traumatic left rib fractures, 3, 4, 5, 6, 8, 9 with pneumothorax 4. Fall chest left rib fractures 5. Diabetes type 2, uncontrolled with diabetic nephropathy complication 6. Hyperglycemia 7. Hyponatremia 8. Schizophrenia 9. Bipolar disorder 10. Depressive disorder 11. Chronic obstructive pulmonary disease 12. Tobacco abuse disorder 13. Marijuana use 14. Facial bruising 15. Pancreatic insufficiency due to chronic pancreatitis 16. Underweight, BMI 19.1 17. Left plueral effusion Patient Condition at Discharge: Undetermined Plan - Discharge Summary New Discharge Prescriptions: No Action Omeprazole 20 mg PO DAILY hydrOXYzine pamoate [hydrOXYzine PAMOATE] 25 mg PO BID PRN PRN Reason: Anxiety QUEtiapine [SEROquel] 100 mg PO HS Cholecalciferol [Vitamin D3 (25 Mcg = 1000 Iu)] 25 mcg PO DAILY ARIPiprazole [Abilify Maintena] 300 mg PO QMONTHLY Ascorbic Acid [Vitamin C] 1,000 mg PO DAILY Jaibzy-Plxtcnrw-Pwrrtte [Zenpep 10] 4 cap PO AC-TID metFORMIN HCL [Glucophage] 850 mg PO BID lamoTRIgine 200 mg PO DAILY Discharge Medication List Omeprazole 20 mg PO DAILY 04/05/18 [History] QUEtiapine [SEROquel] 100 mg PO HS 09/18/20 [History] hydrOXYzine pamoate [hydrOXYzine PAMOATE] 25 mg PO BID PRN 09/18/20 [History] metFORMIN HCL [Glucophage] 850 mg PO BID 09/18/20 [History] ARIPiprazole [Abilify Maintena] 300 mg PO QMONTHLY 06/30/21 [History] Ascorbic Acid [Vitamin C] 1,000 mg PO DAILY 06/30/21 [History] Cholecalciferol [Vitamin D3 (25 Mcg = 1000 Iu)] 25 mcg PO DAILY 06/30/21 [History] Dsyrmm-Bwiemryf-Yebdgye [Zenpep 10] 4 cap PO AC-TID 06/30/21 [History] lamoTRIgine 200 mg PO DAILY 06/30/21 [History] Follow up Appointment(s)/Referral(s): [facility], [NON-STAFF] - Cecilia Cortez MD [Primary Care Provider] - 1-2 days Discharge Disposition: Left Against Medical Advice
[2021-10-25] MEDS ORDERED: ARIPIPRAZOLE 300 MG PO SCH (09:00)
== END 2021-10-08 09:40 | disposition left against medical advice (07) | DRG 199 ==
LOC: EC 12:28 → 2SICU 18:18 → 3SCARD 10-06 12:11
PROVIDERS: ADMIT Internal Medicine; ATTEND Internal Medicine
DX: S27.0XXA Traumatic pneumothorax, initial encounter (principal); S22.5XXA Flail chest, initial encounter for closed fracture; E11.10 Type 2 diabetes mellitus with ketoacidosis without coma; J96.01 Acute respiratory failure with hypoxia; S12.090A Other displaced fracture of first cervical vertebra, initial encounter for closed fracture; E87.1 Hypo-osmolality and hyponatremia; F31.30 Bipolar disorder, current episode depressed, mild or moderate severity, unspecified; J90 Pleural effusion, not elsewhere classified; K86.1 Other chronic pancreatitis; Z68.1 Body mass index [BMI] 19.9 or less, adult; W10.9XXA Fall (on) (from) unspecified stairs and steps, initial encounter; Y92.009 Unspecified place in unspecified non-institutional (private) residence as the place of occurrence of the external cause; S00.11XA Contusion of right eyelid and periocular area, initial encounter; S00.83XA Contusion of other part of head, initial encounter; E11.42 Type 2 diabetes mellitus with diabetic polyneuropathy; E11.21 Type 2 diabetes mellitus with diabetic nephropathy; E78.5 Hyperlipidemia, unspecified; E86.1 Hypovolemia; F10.11 Alcohol abuse, in remission; F17.200 Nicotine dependence, unspecified, uncomplicated; F20.9 Schizophrenia, unspecified; F43.10 Post-traumatic stress disorder, unspecified; I10 Essential (primary) hypertension; J44.9 Chronic obstructive pulmonary disease, unspecified; N28.9 Disorder of kidney and ureter, unspecified; R63.6 Underweight; Z53.29 Procedure and treatment not carried out because of patient's decision for other reasons; M85.80 Other specified disorders of bone density and structure, unspecified site; Z79.84 Long term (current) use of oral hypoglycemic drugs; Z79.899 Other long term (current) drug therapy; Z82.49 Family history of ischemic heart disease and other diseases of the circulatory system; Z85.819 Personal history of malignant neoplasm of unspecified site of lip, oral cavity, and pharynx; Z86.73 Personal history of transient ischemic attack (TIA), and cerebral infarction without residual deficits; Z86.010 Personal history of colon polyps; Z91.14 Patient's other noncompliance with medication regimen; Z91.19 Patient's noncompliance with other medical treatment and regimen
CPT/HCPCS: 36415; 70450; 70486; 71045; 71260; 72125; 74177; 76604; 80051; 80053; 81003; 82565; 82947; 83036; 83605; 84100; 84520; 85025; 90471; 90715; 93005; 96361; 96374; 96376; 99291

== ENCOUNTER 2021-10-18 16:11 | Observation (INO) | payer OTHER ==
[2021-10-18 22:03] LABS: Basophils # (A) 0.2 k/uL (0-0.2); Basophils % (A) 1 %; Eosinophils # (A) 0.2 k/uL (0-0.7); Eosinophils % (A) 1 %; HCT 35.1 % (34.0-46.0); HGB 10.7 gm/dL (11.4-16.0); Hypochromasia Slight; Lymphocytes # (A) 3.6 k/uL (1.0-4.8); Lymphocytes % (A) 15 %; MCH 28.7 pg (25.0-35.0); MCHC 30.6 g/dL (31.0-37.0); MCV 93.9 fL (80.0-100.0); Mean Platelet Volume 7.7; Monocytes # (A) 0.8 k/uL (0-1.0); Monocytes % (A) 3 %; Neutrophils # (A) 18.1 k/uL (1.3-7.7); Neutrophils % (A) 78 %; RBC 3.74 m/uL (3.80-5.40); RDW 13.2 % (11.5-15.5); WBC 23.3 k/uL (3.8-10.6)
[2021-10-18 22:11] LABS: INR 0.9 (<1.2); Prothrombin Time 10.1 sec (9.0-12.0)
[2021-10-18 22:13] LABS: ALT 15 U/L (4-34); AST 19 U/L (14-36); African American GFR (CKD) >90 (>60 ml/min/1.73 sqM); Albumin 3.4 g/dL (3.5-5.0); Alkaline Phosphatase 287 U/L (38-126); Anion Gap 9 mmol/L; Blood Urea Nitrogen 16 mg/dL (7-17); Calcium 8.9 mg/dL (8.4-10.2); Carbon Dioxide 24 mmol/L (22-30); Chloride 88 mmol/L (98-107); Non-African American GFR(CKD) >90 (>60 ml/min/1.73 sqM); Potassium 5.1 mmol/L (3.5-5.1); Sodium 121 mmol/L (137-145); Total Bilirubin 0.6 mg/dL (0.2-1.3)
[2021-10-18 22:18] LABS: Platelet Count 858 k/uL (150-450)
[2021-10-18 22:22] LABS: Glucose 651 mg/dL (74-99)
[2021-10-18] MEDS ORDERED: INSULIN REGULAR 100 UNIT/ML VIAL (IV) IV ONE (22:50)
[2021-10-18] MEDS ORDERED: MORPHINE SULFATE 4 MG/ML SYRINGE IVP STA (22:51)
--- NOTE | 2021-10-18 23:07 | CT ---
EXAMINATION TYPE: CT brain cspine wo con DATE OF EXAM: 10/18/2021 COMPARISON: 10/05/2021 HISTORY: Fall x2 weeks ago. CT DLP: 1266.1 mGycm Automated exposure control for dose reduction was used. There is cerebral cortical atrophy. There is no mass effect or midline shift. There is no sign of int racranial hemorrhage. There is right frontal scalp hematoma that measures up to 1.6 cm in thickness. Calvarium is intact. Skull base is intact. The cervical vertebra have normal alignment. No compression fracture. Disc spaces are normal. Facet j oints are intact. IMPRESSION: Cerebral atrophy. No acute intracranial abnormality. There is right frontal scalp hematoma without mu ch change in size. There is right maxillary sinusitis which is increased compared to old exam. No acute abnormality of the cervical spine. No fracture
--- NOTE | 2021-10-18 23:24 | CT ---
EXAMINATION TYPE: CT ChestAbdPelvis w con DATE OF EXAM: 10/18/2021 COMPARISON: 10/05/2021 HISTORY: Fall x2 weeks ago. CT DLP: 396.5 mGycm Automated exposure control for dose reduction was used. CONTRAST: Performed with IV Contrast, patient injected with 100ml mL of Isovue 300. Images obtained from the thoracic inlet to the floor of the pelvis with IV contrast. FINDINGS: There is some mild interstitial groundglass infiltrate anterior right upper lobe. There are some patc hy small areas of interstitial infiltrate in the posterior right lung. Heart size is normal. No peric ardial effusion. There is no mediastinal adenopathy. There is 3.9 cm ascending aorta. No dissection. There is coronary artery calcification. No pleural effusion. Liver spleen and stomach appear intact. There are numerous calcifications in the pancreas consistent with chronic pancreatitis. Unchanged. Gallbladder appears contracted. The bile duct are not dilated. There is no adrenal mass. Right kidney is relatively small with cortic al thinning. Left kidney shows compensatory hypertrophy. Unchanged. There is 4 mm calculus lower pole right kidney. There is 1 mm calculus posterior left kidney. There is no retroperitoneal adenopathy. Abdominal aorta is atheromatous. The bladder distends smoothly. No inguinal hernia. No free fluid in the pelvis. No evidence of a bowel obstruction. There is no mesenteric edema. Appendix not seen. Ther e is very little intra-abdominal fat. The thoracic and lumbar vertebra appear intact. No significant compression deformity. The sternum is intact. The bony pelvis is intact. The hip joints are intact. There is T11 slight depression of the s uperior endplate 10%. There is also 5% depression superior endplate of L2. The bony pelvis is intact. The hip joints are intact. There are multiple displaced left lower lateral rib fractures. IMPRESSION: There is mild 3.9 cm aneurysm of the ascending aorta without change. There are some interstitial pulm onary infiltrates in the right lung which are not significantly different than old exam. There are mild compression fractures of T11 and L2 unchanged. There is clearing of the left pleural effusion compared to old exam. There are numerous left-sided ri b fractures without change. There is mild constipation that is improved compared to the old exam.
[2021-10-19] MEDS ORDERED: VANCOMYCIN IV PER PHARMACY 1 EACH MISC MISCELLANE PRN (00:10)
--- NOTE | 2021-10-19 00:13 | ED ---
General Adult HPI - General Chief complaint: Head Injury Stated complaint: Head Injury, Left Side Pain Time Seen by Provider: 10/18/21 21:27 Source: patient Mode of arrival: ambulatory Limitations: no limitations - History of Present Illness Initial comments: Helena is a 61-year-old female with extensive past medical and psychiatric history, most significant for noncompliance with her diabetes and recent syncopal episode resulting in her falling down the stairs and having multiple injuries including large hematoma to the scalp and forehead, possible C1 fracture, multiple rib fractures on the left resulting in flail chest with a small pneumothorax and compression fractures in the spine. Patient was hospitalized for 4 days and discharged home. Patient reports that over the past few days she feels that she is getting sicker, she has worsening pain in her left side she has a cough, she has worsening pain in her forehead she was evaluated by her primary care physician who believes she may have developed an infection in her hematoma recommended she come back to the hospital for evaluation. Patient also notes that she has numbness in her bilateral feet unknown if this is new. She also states that she's been urinating constantly uncertain if this could be related to her uncontrolled diabetes. - Related Data Home Medications Medication Instructions Recorded Confirmed Omeprazole 20 mg PO DAILY 04/05/18 10/18/21 QUEtiapine [SEROquel] 100 mg PO HS 09/18/20 10/18/21 hydrOXYzine pamoate [hydrOXYzine 25 mg PO BID PRN 09/18/20 10/18/21 PAMOATE] metFORMIN HCL [Glucophage] 850 mg PO BID 09/18/20 10/18/21 Sfatwh-Tcyskqlu-Qdqlmbi [Zenpep 10] 4 cap PO AC-TID 06/30/21 10/18/21 lamoTRIgine 200 mg PO DAILY 06/30/21 10/18/21 ARIPiprazole [Abilify] 10 mg PO HS 10/18/21 10/18/21 INSULIN LISPRO (HumaLOG) [humaLOG] 20 units SQ AC-TID 10/18/21 10/18/21 Insulin Glargine [Lantus Vial] 50 unit SQ HS 10/18/21 10/18/21 traMADol HCL 50 mg PO BID PRN 10/18/21 10/18/21 Allergies Allergy/AdvReac Type Severity Reaction Status Date / Time No Known Allergies Allergy Verified 10/18/21 22:35 Review of Systems ROS Statement: Those systems with pertinent positive or pertinent negative responses have been documented in the HPI. ROS Other: All systems not noted in ROS Statement are negative. Past Medical History Past Medical History: Cancer, CVA/TIA, Diabetes Mellitus, GERD/Reflux, Hyperlipidemia, Renal Disease Additional Past Medical History / Comment(s): Chronic pancreatitis,wt loss of 60-70 pounds over last year, HEART MURMUR AND ENLARGED AORTA, tia's, colon polyps-benign, "blood pressure tends to run low ended up in ICU" pt states recent UTI treated,merle neuropathy,throat CA at age 6,chronic bronchitis History of Any Multi-Drug Resistant Organisms: MRSA Date of last positivie culture/infection: 2016 MDRO Source:: face Past Surgical History: Appendectomy Additional Past Surgical History / Comment(s): CYST REMOVED FROM NECK. RT 3RD/4TH FINGER PARTIAL AMP D/T INJURY, lt ureter stent. COLONOSCOPY/POLYPECTOMY Past Anesthesia/Blood Transfusion Reactions: Motion Sickness, Postoperative Nausea & Vomiting (PONV) Past Psychological History: Anxiety, Bipolar, Depression, PTSD, Schizophrenia Smoking Status: Current every day smoker Past Alcohol Use History: None Reported Past Drug Use History: Marijuana, Prescription Drug Abuse - Past Family History Father Family Medical History: Liver Disease Additional Family Medical History / Comment(s): Father at age 78 from cirrhosis of the liver. Mother Family Medical History: No Reported History Additional Family Medical History / Comment(s): Mother is alive in her 80s Sister(s) Family Medical History: Coronary Artery Disease (CAD) Additional Family Medical History / Comment(s): Patient has 2 sisters and one has from an overdose. She has 1 brother with no major medical problems. 4cm aortic aneurysm General Exam - General Exam Comments Initial Comments: Physical Exam GENERAL: Chronically ill-appearing underweight female appears much older than stated age HENT: Large hematoma on the right forehead appears erythematous, appears to be infe cted EYES: PERRL, EOMI PULMONARY: Splinting respirations secondary to pain in the left ribs CARDIOVASCULAR: There is a regular rate and rhythm without any murmurs gallops or rubs. ABDOMEN: Soft and nontender with normal bowel sounds. SKIN: Abrasion on forehead, multiple bruises over the body : Normal external genitalia NEUROLOGIC: Patient is alert and oriented x3. Moving all extremities spontaneously Decreased sensation in bilateral feet and stocking glove pattern MUSCULOSKELETAL: Normal extremities with adequate strength and full range of motion. No lower extremity swelling or edema. No calf tenderness. PSYCHIATRIC: Normal psychiatric evaluation. Limitations: no limitations Course Vital Signs 10/18/21 10/18/21 10/18/21 16:13 22:08 23:00 Temperature 98.6 F Pulse Rate 99 87 86 Respiratory 18 16 16 Rate Blood Pressure 134/78 127/87 140/97 O2 Sat by Pulse 99 98 97 Oximetry 10/19/21 00:00 Temperature Pulse Rate Respiratory 16 Rate Blood Pressure 127/91 O2 Sat by Pulse 98 Oximetry Medical Decision Making - Medical Decision Making The patient was seen and evaluated, history was obtained from the patient review of medical records, repeat imaging head to pelvis was obtained, patient has persistent hematoma on the right forehead however I have concern that this may be infected based on physical exam in addition she may be developing right-sided pneumonia, her fractures all appear unchanged no new injuries. Labs have multiple critical abnormalities including profound leukocytosis with neutrophilia, platelets are elevated likely reactive to infection, hyperglycemia with pseudohyponatremia secondary to the high sugar, corrected sodium is 130 IV insulin was ordered for hyperglycemia Antibiotics were ordered for my suspicion of infected hematoma as well as pneumonia Patient will require admission for glucose management, evaluation by surgery of the infected hematoma, continuous antibiotics. This plan was discussed with hospitalist Dr. Pinedo of [facility] who accepts the admission - Lab Data Result diagrams: 10/18/21 21:53 10/18/21 21:53 Lab Results 10/18/21 10/18/21 10/18/21 Range/Units 21:53 21:53 21:53 WBC 23.3 H (3.8-10.6) k/uL RBC 3.74 L (3.80-5.40) m/uL Hgb 10.7 L (11.4-16.0) gm/dL Hct 35.1 (34.0-46.0) % MCV 93.9 (80.0-100.0) fL MCH 28.7 (25.0-35.0) pg MCHC 30.6 L (31.0-37.0) g/dL RDW 13.2 (11.5-15.5) % Plt Count 858 H D (150-450) k/uL MPV 7.7 Neutrophils % 78 % Lymphocytes % 15 % Monocytes % 3 % Eosinophils % 1 % Basophils % 1 % Neutrophils # 18.1 H (1.3-7.7) k/uL Lymphocytes # 3.6 (1.0-4.8) k/uL Monocytes # 0.8 (0-1.0) k/uL Eosinophils # 0.2 (0-0.7) k/uL Basophils # 0.2 (0-0.2) k/uL Hypochromasia Slight PT 10.1 (9.0-12.0) sec INR 0.9 (<1.2) APTT 26.0 (22.0-30.0) sec Sodium 121 L (137-145) mmol/L Potassium 5.1 (3.5-5.1) mmol/L Chloride 88 L (98-107) mmol/L Carbon Dioxide 24 (22-30) mmol/L Anion Gap 9 mmol/L BUN 16 (7-17) mg/dL Creatinine 0.54 (0.52-1.04) mg/dL Est GFR (CKD-EPI)AfAm >90 (>60 ml/min/1.73 sqM) Est GFR (CKD-EPI)NonAf >90 (>60 ml/min/1.73 sqM) Glucose 651 H* (74-99) mg/dL POC Glucose (mg/dL) (75-99) mg/dL POC Glu Dispensing Optician ID Calcium 8.9 (8.4-10.2) mg/dL Total Bilirubin 0.6 (0.2-1.3) mg/dL AST 19 (14-36) U/L ALT 15 (4-34) U/L Alkaline Phosphatase 287 H (38-126) U/L Troponin I (0.000-0.034) ng/mL Total Protein 7.0 (6.3-8.2) g/dL Albumin 3.4 L (3.5-5.0) g/dL 10/18/21 10/19/21 Range/Units 21:53 00:22 WBC (3.8-10.6) k/uL RBC (3.80-5.40) m/uL Hgb (11.4-16.0) gm/dL Hct (34.0-46.0) % MCV (80.0-100.0) fL MCH (25.0-35.0) pg MCHC (31.0-37.0) g/dL RDW (11.5-15.5) % Plt Count (150-450) k/uL MPV Neutrophils % % Lymphocytes % % Monocytes % % Eosinophils % % Basophils % % Neutrophils # (1.3-7.7) k/uL Lymphocytes # (1.0-4.8) k/uL Monocytes # (0-1.0) k/uL Eosinophils # (0-0.7) k/uL Basophils # (0-0.2) k/uL Hypochromasia PT (9.0-12.0) sec INR (<1.2) APTT (22.0-30.0) sec Sodium (137-145) mmol/L Potassium (3.5-5.1) mmol/L Chloride (98-107) mmol/L Carbon Dioxide (22-30) mmol/L Anion Gap mmol/L BUN (7-17) mg/dL Creatinine (0.52-1.04) mg/dL Est GFR (CKD-EPI)AfAm (>60 ml/min/1.73 sqM) Est GFR (CKD-EPI)NonAf (>60 ml/min/1.73 sqM) Glucose (74-99) mg/dL POC Glucose (mg/dL) 561 H (75-99) mg/dL POC Glu Dispensing Optician ELVIN Jeffry [place] Calcium (8.4-10.2) mg/dL Total Bilirubin (0.2-1.3) mg/dL AST (14-36) U/L ALT (4-34) U/L Alkaline Phosphatase (38-126) U/L Troponin I <0.012 (0.000-0.034) ng/mL Total Protein (6.3-8.2) g/dL Albumin (3.5-5.0) g/dL Disposition Clinical Impression: Closed head injury, Infected hematoma, Pneumonia, Leukocytosis, Noncompliance with medication regimen, Hyperglycemia due to type 2 diabetes mellitus Disposition: ADMITTED IP TO THIS HOSP Condition: Serious
[2021-10-19] MEDS ORDERED: CEFEPIME 1 GM in SODIUM CHLORIDE 0.9% 50 ML IVPB ONE (00:15)
[2021-10-19 00:29] LABS: Glucose,Whole Blood 561 mg/dL (75-99)
[2021-10-19] MEDS ORDERED: VANCOMYCIN 1,000 MG in SODIUM CHLORIDE 0.9% 250 ML IVPB ONE (00:30)
[2021-10-19] MEDS ORDERED: NALOXONE 0.4 MG/ML 1 ML VIAL IV PRN (01:36)
[2021-10-19 02:43] LABS: Glucose,Whole Blood 407 mg/dL (75-99)
[2021-10-19 06:24] LABS: Glucose,Whole Blood 421 mg/dL (75-99)
[2021-10-19] MEDS ORDERED: MORPHINE SULFATE 4 MG/ML SYRINGE IVP STA (06:49)
[2021-10-19 07:18] LABS: Glucose,Whole Blood 387 mg/dL (75-99)
[2021-10-19] MEDS: INSULIN ASPART (NovoLOG) 100 UNIT/ML VIAL SQ SCH ×7 (07:32→21:06)
[2021-10-19] MEDS: FAMOTIDINE 20 MG/2 ML VIAL IV SCH ×2 (08:29→21:10)
[2021-10-19] MEDS: HEPARIN SODIUM,PORCINE/PF 5,000 UNIT/0.5 ML SYRINGE SQ SCH ×2 (08:29→21:10)
[2021-10-19] MEDS: LIPASE 5,000/PROTEASE 17,000/AMYLASE 24,000 PO SCH ×3 (08:30→17:36)
[2021-10-19 08:51] LABS: HCT 33.5 % (34.0-46.0); HGB 10.3 gm/dL (11.4-16.0); Hypochromasia Slight; MCH 28.8 pg (25.0-35.0); MCHC 30.8 g/dL (31.0-37.0); MCV 93.4 fL (80.0-100.0); Mean Platelet Volume 7.5; Platelet Count 841 k/uL (150-450); RBC 3.59 m/uL (3.80-5.40); RDW 13.1 % (11.5-15.5); WBC 18.6 k/uL (3.8-10.6)
[2021-10-19 08:58] LABS: African American GFR (CKD) >90 (>60 ml/min/1.73 sqM); Anion Gap 5 mmol/L; Blood Urea Nitrogen 15 mg/dL (7-17); Calcium 8.9 mg/dL (8.4-10.2); Carbon Dioxide 29 mmol/L (22-30); Chloride 91 mmol/L (98-107); Glucose 387 mg/dL (74-99); Magnesium 1.7 mg/dL (1.6-2.3); Non-African American GFR(CKD) >90 (>60 ml/min/1.73 sqM); Potassium 4.4 mmol/L (3.5-5.1); Sodium 125 mmol/L (137-145)
--- NOTE | 2021-10-19 09:01 | P.HPIM ---
History of Present Illness This is a pleasant 61 years old female with past medical history of type 2 diabetes mellitus,CVA/TIA, GERD/Reflux, Hyperlipidemia, , Chronic pancreatitis,,merle neuropathy,throat CA at age 6,chronic bronchitis, Anxiety, Bipolar, Depression, PTSD, Schizophrenia, Current every day smoker, Marijuana, Prescription Drug Abuse She was recently discharged from the hospital 10/05-10/08 after a fall downstairs with C1 transverse process fracture, Multiple traumatic left rib fractures, 3, 4, 5, 6, 8, 9 with pneumothorax, Flail chest. Patient was discharged home with home care. But before discharge she left AMA. She presents this time because of her right side to forehead hematoma was getting because over the last 4 days and 3 episodes with some of bloody dis charge noted from the mass. Now there is no more discharge. No open wound but there is dressed With erythema on the top of it. Also complaining of increasing pain which is restricted currently 2/10 after she received morphine. She has some cough and white phlegm for the last 2 weeks but is not getting worse, no worsening dyspnea, no more than expected left-sided chest pain with coughing. She states she was taking her medication and insulin at home. She wants to see her PCP Susi Archuleta for her worsening hematoma symptoms as above. She is 51 nicotine a lot. She denies alcohol or illicit drugs Vitals stable, patient is afebrile. None showing leukocytosis at 23.3. Hemoglobin 10.7, platelet count elevated 858. INR 0.9, sodium 121, glucose elevated more than 650. Accu-Chek currently 407 and 421. Liver enzymes not elevated CT of the head and cervical spine,: per radiologist, cerebral atrophy. No acute intracranial abnormality. There is right frontal scalp hematoma without much change in size. There is right maxillary sinusitis. Also no acute abnormal ~cervical spine. No fracture CT of the chest, abdomen and pelvis: Mild interstitial ground glass infiltrate of the right upper lobe. Some patchy small areas interstitial infiltrates in the posterior right lung. On admission she was started on IV vancomycin and insulin and 1 dose of cefepime. Surgery team were consulted Review of Systems CONSTITUTIONAL: No fever, no malaise, no fatigue. HEENT: No recent visual problems or hearing problems. Denied any sore throat. CARDIOVASCULAR: No orthopnea, PND, no palpitations, no syncope. PULMONARY: No chest wall tenderness, no hemoptysis. GASTROINTESTINAL: No diarrhea, no nausea, no vomiting, no abdominal pain. Normoactive bowel sounds. NEUROLOGICAL: No headaches, no weakness, no numbness. HEMATOLOGICAL: Denies any bleeding or petechiae. GENITOURINARY: Denies any burning micturition, frequency, or urgency. MUSCULOSKELETAL/RHEUMATOLOGICAL: Denies any joint pain, swelling, or any muscle pain. ENDOCRINE: Denies any polyuria or polydipsia. 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 RT 3RD/4TH FINGER PARTIAL AMP D/T INJURY, lt ureter stent. COLONOSCOPY/POLYPECTOMY Past Anesthesia/Blood Transfusion Reactions: Motion Sickness, Postoperative Nausea & Vomiting (PONV) Past Psychological History: Anxiety, Bipolar, Depression, PTSD, Schizophrenia Smoking Status: Current every day smoker Past Alcohol Use History: None Reported Past Drug Use History: Marijuana, Prescription Drug Abuse - Past Family History Father Family Medical History: Liver Disease Additional Family Medical History / Comment(s): Father at age 78 from cirr hosis of the liver. Mother Family Medical History: No Reported History Additional Family Medical History / Comment(s): Mother is alive in her 80s Sister(s) Family Medical History: Coronary Artery Disease (CAD) Additional Family Medical History / Comment(s): Patient has 2 sisters and one has from an overdose. She has 1 brother with no major medical problems. 4cm aortic aneurysm Medications and Allergies Home Medications Medication Instructions Recorded Confirmed Type Omeprazole 20 mg PO DAILY 04/05/18 10/18/21 History QUEtiapine [SEROquel] 100 mg PO HS 09/18/20 10/18/21 History hydrOXYzine pamoate [hydrOXYzine 25 mg PO BID PRN 09/18/20 10/18/21 History PAMOATE] metFORMIN HCL [Glucophage] 850 mg PO BID 09/18/20 10/18/21 History Xnbhsz-Spdbnriv-Ogubxdf [Zenpep 10] 4 cap PO AC-TID 06/30/21 10/18/21 History lamoTRIgine 200 mg PO DAILY 06/30/21 10/18/21 History ARIPiprazole [Abilify] 10 mg PO HS 10/18/21 10/18/21 History INSULIN LISPRO (HumaLOG) [humaLOG] 20 units SQ AC-TID 10/18/21 10/18/21 History Insulin Glargine [Lantus Vial] 50 unit SQ HS 10/18/21 10/18/21 History traMADol HCL 50 mg PO BID PRN 10/18/21 10/18/21 History Allergies Allergy/AdvReac Type Severity Reaction Status Date / Time No Known Allergies Allergy Verified 10/18/21 22:35 Physical Exam Vitals: Vital Signs Temp Pulse Resp BP Pulse Ox 10/19/21 06:00 86 18 113/76 95 10/19/21 05:00 87 18 119/78 95 10/19/21 04:00 90 18 113/74 95 10/19/21 03:00 86 16 121/77 96 10/19/21 02:00 87 16 105/63 94 L 10/19/21 01:00 91 18 117/104 94 L 10/19/21 00:09 89 18 95/73 95 10/19/21 00:00 16 127/91 98 10/18/21 23:00 86 16 140/97 97 10/18/21 22:08 87 16 127/87 98 10/18/21 16:13 98.6 F 99 18 134/78 99 Intake and Output 10/18/21 10/19/21 10/19/21 22:59 06:59 14:59 Other: Weight 45.359 kg GENERAL: The patient is alert and oriented x3, not in any acute distress. Well developed, well nourished. - HEENT: Pupils are round and equally reacting to light. EOMI. No scleral icterus. No conjunctival pallor. Normocephalic, atraumatic. No pharyngeal erythema. No thyromegaly. Right forehead fluctuant hematoma about 2-3 inches in size with redness, dressed And tenderness. CARDIOVASCULAR: S1 and S2 present. No murmurs, rubs, or gallops. PULMONARY: Chest is clear to auscultation, no wheezing or crackles. ABDOMEN: Soft, nontender, nondistended, normoactive bowel sounds. No palpable organomegaly. MUSCULOSKELETAL: No joint swelling or deformity. EXTREMITIES: No cyanosis, clubbing, or pedal edema. NEUROLOGICAL: Gross neurological examination did not reveal any focal deficits. SKIN: No rashes. No petechiae Results CBC & Chem 7: 10/19/21 08:14 10/18/21 21:53 Labs: Abnormal Lab Results - Last 24 Hours (Table) 10/18/21 10/18/21 10/19/21 Range/Units 21:53 21:53 00:22 WBC 23.3 H (3.8-10.6) k/uL RBC 3.74 L (3.80-5.40) m/uL Hgb 10.7 L (11.4-16.0) gm/dL MCHC 30.6 L (31.0-37.0) g/dL Plt Count 858 H D (150-450) k/uL Neutrophils # 18.1 H (1.3-7.7) k/uL Sodium 121 L (137-145) mmol/L Chloride 88 L (98-107) mmol/L Glucose 651 H* (74-99) mg/dL POC Glucose (mg/dL) 561 H (75-99) mg/dL Alkaline Phosphatase 287 H (38-126) U/L Albumin 3.4 L (3.5-5.0) g/dL 10/19/21 10/19/21 Range/Units 02:41 06:21 WBC (3.8-10.6) k/uL RBC (3.80-5.40) m/uL Hgb (11.4-16.0) gm/dL MCHC (31.0-37.0) g/dL Plt Count (150-450) k/uL Neutrophils # (1.3-7.7) k/uL Sodium (137-145) mmol/L Chloride (98-107) mmol/L Glucose (74-99) mg/dL POC Glucose (mg/dL) 407 H 421 H (75-99) mg/dL Alkaline Phosphatase (38-126) U/L Albumin (3.5-5.0) g/dL Assessment and Plan Assessment: Possible infected hematoma to the right side of the forehead Possible mild interstitial pneumonia, currently asymptomatic Recent history of fall 2 weeks ago with C1 transverse process fracture, Multiple traumatic left rib fractures, 3, 4, 5, 6, 8, 9 with pneumothorax Diabetes mellitus, type II, with hyperglycemia, present on admission Diabetic neuropathy Nicotine dependence History of depression, bipolar, PTSD and schizophrenia Nicotine dependence noncompliance including nonadherence to medication Substance abuse including history of marijuana and prescription drug abuse History of CVA/TIA History of GERD Hyperlipidemia History of chronic pancreatitis Plan: This is a pleasant 61 years old female who presents with hyperglycemia And infected hematoma of forehead Continue with antibiotic, currently on IV vancomycin Start normal saline Follow-up with general surgery team Resume Levemir and NovoLog with insulin sliding scale, resume metformin Infectious disease team consult Labs and medication were reviewed.. Continue same treatment. Continue with symptomatic treatment. Resume home medication. Monitor lytes and vitals. DVT and GI prophylaxis. Further recommendations depends on the clinical course of the patient DVT prophylaxis: Subcutaneous heparin GI Prophylaxis: Pepcid PT/OT: Pending Prognosis is guarded
[2021-10-19] MEDS: NICOTINE 21MG/24HR PATCH TRANSDERM SCH (09:12)
[2021-10-19] MEDS: lamoTRIgine 100 MG TAB PO SCH (09:13)
[2021-10-19] MEDS: metFORMIN 850 MG TAB PO SCH ×2 (09:13→21:10)
[2021-10-19 09:35] LABS: Appearance,Urine Cloudy (Clear); Bilirubin,Urine Negative (Negative); Blood,Urine Trace (Negative); Color,Urine Yellow; Glucose,Urine (UA) 4+ (Negative); Ketones,Urine Trace (Negative); Leukocyte Esterase,Urine Small (Negative); Mucus,Urine Rare /hpf; Nitrite,Urine Negative (Negative); PH, Urine 5.5 (5.0-8.0); Protein,Urine Trace (Negative); RBC,Urine 7 /hpf (0-5); Specific Gravity,Urine 1.029 (1.001-1.035); Urobilinogen,Urine <2.0 mg/dL (<2.0); WBC,Urine 62 /hpf (0-5)
[2021-10-19 11:09] LABS: Glucose,Whole Blood 326 mg/dL (75-99)
[2021-10-19] MEDS: HYDROcodone/APAP 5-325MG 1 EACH TAB PO PRN ×2 (12:02→17:36)
[2021-10-19] MEDS: SODIUM CHLORIDE 0.9% 1,000 ML IV SCH ×2 (12:05→17:36)
--- NOTE | 2021-10-19 14:01 | P.GSCN ---
History of Present Illness Consult date: 10/19/21 History of present illness: CHIEF COMPLAINT: Right forehead hematoma HISTORY OF PRESENT ILLNESS: This is a 61-year-old female who was recently hospitalized about 10-12 days ago after a fell down the stairs. She had evidence of a C1 fracture left-sided rib fractures with flail chest and pneumothorax. She was hospitalized for about 4 days and left AGAINST MEDICAL ADVICE. She also has a psychiatric history of schizophrenia and bipolar. Patient reports that her primary care physician referred her to the ER for her forehead hematoma. She reports that the hematoma has gotten larger since her fall. She denies being on any blood thinners. She reports that there had been some drainage from the hematoma that had been red and may be slightly purulent. The area is scabbed. She denies any new pain. Denies any abdominal pain. She does report that she still having some left-sided rib pain. She is uncontrolled blood sugars. She does have a past history of MRSA on a previous scalp abscess. Surgical consult placed for further evaluation of possible infected forehead hematoma and need for incision and drainage. Patient denies any fever chills or sweats. Denies any nausea or vomiting. She is tolerating diet. Patient seen and examined with Dr. hare PAST MEDICAL HISTORY: See list. PAST SURGICAL HISTORY: See list. MEDICATIONS: See list. ALLERGIES: See list. SOCIAL HISTORY: No illicit drug use. REVIEW OF SYSTEMS: CONSTITUTIONAL: Denies fever or chills. HEENT: Denies blurred vision, vision changes, or eye pain. Denies hemoptysis CARDIOVASCULAR: Denies chest pain or pressure. RESPIRATORY: No shortness of breath. GASTROINTESTINAL: See HPI for pertinent findings HEMATOLOGIC: Denies bleeding disorders. GENITOURINARY: Denies any blood in urine or increased urinary frequency. SKIN: Denies pruitis. Denies rash. PHYSICAL EXAM: VITAL SIGNS: Reviewed GENERAL: Well-developed in no acute distress. HEENT: No sclera icterus. Extraocular movements grossly intact. Moist buccal mucosa. Head right for head hematoma no drainage. There is area that is scabbed. It is soft. Tender with palpation. No drainage noted. It's about 3 x 3 cm. It is fluctuant. ABDOMEN: Soft. Nondistended. Nontender NEUROLOGIC: Alert and oriented. Cranial nerves II through XII grossly intact. LABORATORY DATA: WBC 23.3 down to 18.6 hemoglobin 10.3 platelets 841 Sodium is 125 potassium is 4.4 creatinine is 0.64 Glucose 651 on admission. Currently 387 Magnesium 1.7 Troponin negative IMAGING: Computed tomography scan of the brain and C-spine 3 no acute intracranial abnormality. Right frontal scalp hematoma without much change in size. There is right maxillary sinusitis with which is increased compared to old exam. No acute abnormality of cervical spine. No fracture. Computed tomography scan abdomen and pelvis there is a mild 3.9 cm aneurysm of the ascending aorta without change. There is some interstitial pulmonary infiltrates in the right lung which are not significantly different from old exam. There is mild compression fracture at T11 and L2 unchanged. There is clearing of the left pleural effusion compared to old exam. There are numerous left-sided rib fractures without change. Mild constipation that is improved compared to old exam. ASSESSMENT: 1. Right forehead hematoma PLAN: -No surgical intervention planned -Continue supportive care -The hematoma will take time to absorb on its own Thank you for this consultation Physician Open End Spinning Operator note has been reviewed by physician. Signing provider agrees with the documented findings, assessment, and plan of care. Past Medical History Past Medical History: Cancer, CVA/TIA, Diabetes Mellitus, GERD/Reflux, Hyperlipidemia, Renal Disease Additional Past Medical History / Comment(s): Chronic pancreatitis,wt loss of 60-70 pounds over last year, HEART MURMUR AND ENLARGED AORTA, tia's, colon po lyps-benign, "blood pressure tends to run low ended up in ICU" pt states recent UTI treated,merle neuropathy,throat CA at age 6,chronic bronchitis recent fall with left rib fractures, hematoma to right forehead History of Any Multi-Drug Resistant Organisms: MRSA Year Discovered:: 2016 MDRO Source:: face Past Surgical History: Appendectomy Additional Past Surgical History / Comment(s): CYST REMOVED FROM NECK. RT 3RD/4TH FINGER PARTIAL AMP D/T INJURY, lt ureter stent. COLONOSCOPY/POLYPECTOMY Past Anesthesia/Blood Transfusion Reactions: Motion Sickness, Postoperative Nausea & Vomiting (PONV) Smoking Status: Current every day smoker - Past Family History Father Family Medical History: Liver Disease Additional Family Medical History / Comment(s): Father at age 78 from cirrhosis of the liver. Mother Family Medical History: No Reported History Additional Family Medical History / Comment(s): Mother is alive in her 80s Sister(s) Family Medical History: Coronary Artery Disease (CAD) Additional Family Medical History / Comment(s): Patient has 2 sisters and one has from an overdose. She has 1 brother with no major medical problems. 4cm aortic aneurysm Medications and Allergies Home Medications Medication Instructions Recorded Confirmed Type Omeprazole 20 mg PO DAILY 04/05/18 10/18/21 History QUEtiapine [SEROquel] 100 mg PO HS 09/18/20 10/18/21 History hydrOXYzine pamoate [hydrOXYzine 25 mg PO BID PRN 09/18/20 10/18/21 History PAMOATE] metFORMIN HCL [Glucophage] 850 mg PO BID 09/18/20 10/18/21 History Iyffhb-Bsxbgbxx-Urafhtg [Zenpep 10] 4 cap PO AC-TID 06/30/21 10/18/21 History lamoTRIgine 200 mg PO DAILY 06/30/21 10/18/21 History ARIPiprazole [Abilify] 10 mg PO HS 10/18/21 10/18/21 History INSULIN LISPRO (HumaLOG) [humaLOG] 20 units SQ AC-TID 10/18/21 10/18/21 History Insulin Glargine [Lantus Vial] 50 unit SQ HS 10/18/21 10/18/21 History traMADol HCL 50 mg PO BID PRN 10/18/21 10/18/21 History Allergies Allergy/AdvReac Type Severity Reaction Status Date / Time No Known Allergies Allergy Verified 10/18/21 22:35 Surgical - Exam Vital Signs Temp Pulse Resp BP Pulse Ox 98.6 F 99 18 134/78 99 10/18/21 16:13 10/18/21 16:13 10/18/21 16:13 10/18/21 16:13 10/18/21 16:13 Results - Labs 10/19/21 08:14 10/19/21 08:14 Abnormal Lab Results - Last 24 Hours (Table) 10/18/21 10/18/21 10/19/21 Range/Units 21:53 21:53 00:22 WBC 23.3 H (3.8-10.6) k/uL RBC 3.74 L (3.80-5.40) m/uL Hgb 10.7 L (11.4-16.0) gm/dL Hct (34.0-46.0) % MCHC 30.6 L (31.0-37.0) g/dL Plt Count 858 H D (150-450) k/uL Neutrophils # 18.1 H (1.3-7.7) k/uL Sodium 121 L (137-145) mmol/L Chloride 88 L (98-107) mmol/L Glucose 651 H* (74-99) mg/dL POC Glucose (mg/dL) 561 H (75-99) mg/dL Alkaline Phosphatase 287 H (38-126) U/L Albumin 3.4 L (3.5-5.0) g/dL Urine Appearance (Clear) Urine Protein (Negative) Urine Glucose (UA) (Negative) Urine Ketones (Negative) Urine Blood (Negative) Ur Leukocyte Esterase (Negative) Urine RBC (0-5) /hpf Urine WBC (0-5) /hpf Urine Mucus (None) /hpf 10/19/21 10/19/21 10/19/21 Range/Units 02:41 06:21 07:17 WBC (3.8-10.6) k/uL RBC (3.80-5.40) m/uL Hgb (11.4-16.0) gm/dL Hct (34.0-46.0) % MCHC (31.0-37.0) g/dL Plt Count (150-450) k/uL Neutrophils # (1.3-7.7) k/uL Sodium (137-145) mmol/L Chloride (98-107) mmol/L Glucose (74-99) mg/dL POC Glucose (mg/dL) 407 H 421 H 387 H (75-99) mg/dL Alkaline Phosphatase (38-126) U/L Albumin (3.5-5.0) g/dL Urine Appearance (Clear) Urine Protein (Negative) Urine Glucose (UA) (Negative) Urine Ketones (Negative) Urine Blood (Negative) Ur Leukocyte Esterase (Negative) Urine RBC (0-5) /hpf Urine WBC (0-5) /hpf Urine Mucus (None) /hpf 10/19/21 10/19/21 10/19/21 Range/Units 08:14 08:14 09:08 WBC 18.6 H (3.8-10.6) k/uL RBC 3.59 L (3.80-5.40) m/uL Hgb 10.3 L (11.4-16.0) gm/dL Hct 33.5 L (34.0-46.0) % MCHC 30.8 L (31.0-37.0) g/dL Plt Count 841 H (150-450) k/uL Neutrophils # (1.3-7.7) k/uL Sodium 125 L (137-145) mmol/L Chloride 91 L (98-107) mmol/L Glucose 387 H (74-99) mg/dL POC Glucose (mg/dL) (75-99) mg/dL Alkaline Phosphatase (38-126) U/L Albumin (3.5-5.0) g/dL Urine Appearance Cloudy H (Clear) Urine Protein Trace H (Negative) Urine Glucose (UA) 4+ H (Negative) Urine Ketones Trace H (Negative) Urine Blood Trace H (Negative) Ur Leukocyte Esterase Small H (Negative) Urine RBC 7 H (0-5) /hpf Urine WBC 62 H (0-5) /hpf Urine Mucus Rare H (None) /hpf 10/19/21 Range/Units 11:07 WBC (3.8-10.6) k/uL RBC (3.80-5.40) m/uL Hgb (11.4-16.0) gm/dL Hct (34.0-46.0) % MCHC (31.0-37.0) g/dL Plt Count (150-450) k/uL Neutrophils # (1.3-7.7) k/uL Sodium (137-145) mmol/L Chloride (98-107) mmol/L Glucose (74-99) mg/dL POC Glucose (mg/dL) 326 H (75-99) mg/dL Alkaline Phosphatase (38-126) U/L Albumin (3.5-5.0) g/dL Urine Appearance (Clear) Urine Protein (Negative) Urine Glucose (UA) (Negative) Urine Ketones (Negative) Urine Blood (Negative) Ur Leukocyte Esterase (Negative) Urine RBC (0-5) /hpf Urine WBC (0-5) /hpf Urine Mucus (None) /hpf Diabetes panel 10/18/21 10/19/21 Range/Units 21:53 08:14 Sodium 121 L 125 L (137-145) mmol/L Potassium 5.1 4.4 (3.5-5.1) mmol/L Chloride 88 L 91 L (98-107) mmol/L Carbon Dioxide 24 29 (22-30) mmol/L BUN 16 15 (7-17) mg/dL Creatinine 0.54 0.64 (0.52-1.04) mg/dL Glucose 651 H* 387 H (74-99) mg/dL Calcium 8.9 8.9 (8.4-10.2) mg/dL AST 19 (14-36) U/L ALT 15 (4-34) U/L Alkaline Phosphatase 287 H (38-126) U/L Total Protein 7.0 (6.3-8.2) g/dL Albumin 3.4 L (3.5-5.0) g/dL Calcium panel 10/18/21 10/19/21 Range/Units 21:53 08:14 Calcium 8.9 8.9 (8.4-10.2) mg/dL Albumin 3.4 L (3.5-5.0) g/dL Pituitary panel 10/18/21 10/19/21 Range/Units 21:53 08:14 Sodium 121 L 125 L (137-145) mmol/L Potassium 5.1 4.4 (3.5-5.1) mmol/L Chloride 88 L 91 L (98-107) mmol/L Carbon Dioxide 24 29 (22-30) mmol/L BUN 16 15 (7-17) mg/dL Creatinine 0.54 0.64 (0.52-1.04) mg/dL Glucose 651 H* 387 H (74-99) mg/dL Calcium 8.9 8.9 (8.4-10.2) mg/dL Adrenal panel 10/18/21 10/19/21 Range/Units 21:53 08:14 Sodium 121 L 125 L (137-145) mmol/L Potassium 5.1 4.4 (3.5-5.1) mmol/L Chloride 88 L 91 L (98-107) mmol/L Carbon Dioxide 24 29 (22-30) mmol/L BUN 16 15 (7-17) mg/dL Creatinine 0.54 0.64 (0.52-1.04) mg/dL Glucose 651 H* 387 H (74-99) mg/dL Calcium 8.9 8.9 (8.4-10.2) mg/dL Total Bilirubin 0.6 (0.2-1.3) mg/dL AST 19 (14-36) U/L ALT 15 (4-34) U/L Alkaline Phosphatase 287 H (38-126) U/L Total Protein 7.0 (6.3-8.2) g/dL Albumin 3.4 L (3.5-5.0) g/dL
[2021-10-19] MEDS: VANCOMYCIN 750 MG in SODIUM CHLORIDE 0.9% 250 ML IVPB SCH (14:13)
[2021-10-19] MEDS: CEFEPIME 2 GM in SODIUM CHLORIDE 0.9% 100 ML IVPB SCH ×2 (16:33→23:22)
[2021-10-19 17:06] LABS: Glucose,Whole Blood 251 mg/dL (75-99)
[2021-10-19 20:45] LABS: Glucose,Whole Blood 116 mg/dL (75-99)
[2021-10-19] MEDS: ARIPiprazole 10 MG TAB PO SCH (21:10)
[2021-10-19] MEDS: QUEtiapine 100 MG TAB PO SCH (21:19)
[2021-10-20] MEDS: HYDROcodone/APAP 5-325MG 1 EACH TAB PO PRN ×5 (00:06→23:14)
[2021-10-20] MEDS: hydrOXYzine pamoate 25 MG CAP PO PRN ×3 (00:06→23:14)
[2021-10-20] MEDS: VANCOMYCIN 750 MG in SODIUM CHLORIDE 0.9% 250 ML IVPB SCH ×3 (00:07→21:27)
--- NOTE | 2021-10-20 00:53 | P.CONS ---
History of Present Illness - Reason for Consult Consult date: 10/19/21 Infected hematoma Requesting physician: Tacos E Sheet - Chief Complaint Forehead swelling and pain x few days - History of Present Illness Patient is a 61-year-old female with a past medical significant for diabetes mellitus in this patient apparently recently did have a syncopal episode this patient did have a fall down the stairs and having multiple dental injuries including a large hematoma to the scalp and forehead area apparent the patient was recently hospitalized acceptable discharge home patient has been brought back to the hospital concerning for getting weaker increasing pain in her left side as well as to the forehead area patient described the pain to be more of a dull aching to sharp about 6-7 out of 10 no radiation did have minimal drainage from the wound area which has been culture with the symptom the patient has been evaluated by ER physician on arrival to the ER the patient was afebrile and no fever have been recorded subsequently patient did have white count of 23,000 with a left shift kidney function was normal urine was mildly positive peterson PCR was negative patient did have blood cultures positive for gram- positive as well as gram-negative patient did have a CT of the head cervical spine cerebral atrophy no acute intracranial abnormality right frontal scalp hematoma without much change in size patient did have a CT of the chest abdominal pelvis reported symptoms of aneurysm of descending aorta interstitial pulmonary infiltrate mild compression fracture of T11 and L2 unchanged mild constipation Review of Systems Positive point has been mentioned in the HPI rest of the systems are negative Past Medical History Past Medical History: Cancer, CVA/TIA, Diabetes Mellitus, GERD/Reflux, Hyperlipidemia, Renal Disease Additional Past Medical History / Comment(s): Chronic pancreatitis,wt loss of 60-70 pounds over last year, HEART MURMUR AND ENLARGED AORTA, tia's, colon polyps-benign, "blood pressure tends to run low ended up in ICU" pt states recent UTI treated,merle neuropathy,throat CA at age 6,chronic bronchitis recent f all with left rib fractures, hematoma to right forehead History of Any Multi-Drug Resistant Organisms: MRSA Year Discovered:: 2016 MDRO Source:: face Past Surgical History: Appendectomy Additional Past Surgical History / Comment(s): CYST REMOVED FROM NECK. RT 3RD/4TH FINGER PARTIAL AMP D/T INJURY, lt ureter stent. COLONOSCOPY/POLYPECTOMY Past Anesthesia/Blood Transfusion Reactions: Motion Sickness, Postoperative Nausea & Vomiting (PONV) Smoking Status: Current every day smoker - Past Family History Father Family Medical History: Liver Disease Additional Family Medical History / Comment(s): Father at age 78 from cirrhosis of the liver. Mother Family Medical History: No Reported History Additional Family Medical History / Comment(s): Mother is alive in her 80s Sister(s) Family Medical History: Coronary Artery Disease (CAD) Additional Family Medical History / Comment(s): Patient has 2 sisters and one has from an overdose. She has 1 brother with no major medical problems. 4cm aortic aneurysm Medications and Allergies Home Medications Medication Instructions Recorded Confirmed Type Omeprazole 20 mg PO DAILY 04/05/18 10/18/21 History QUEtiapine [SEROquel] 100 mg PO HS 09/18/20 10/18/21 History hydrOXYzine pamoate [hydrOXYzine 25 mg PO BID PRN 09/18/20 10/18/21 History PAMOATE] metFORMIN HCL [Glucophage] 850 mg PO BID 09/18/20 10/18/21 History Fkuoiw-Ohjlilmx-Jqaiken [Zenpep 10] 4 cap PO AC-TID 06/30/21 10/18/21 History lamoTRIgine 200 mg PO DAILY 06/30/21 10/18/21 History ARIPiprazole [Abilify] 10 mg PO HS 10/18/21 10/18/21 History INSULIN LISPRO (HumaLOG) [humaLOG] 20 units SQ AC-TID 10/18/21 10/18/21 History Insulin Glargine [Lantus Vial] 50 unit SQ HS 10/18/21 10/18/21 History traMADol HCL 50 mg PO BID PRN 10/18/21 10/18/21 History Allergies Allergy/AdvReac Type Severity Reaction Status Date / Time No Known Allergies Allergy Verified 10/18/21 22:35 Physical Exam Vitals: Vital Signs Temp Pulse Pulse Resp BP BP Pulse Ox 10/19/21 13:50 98.2 F 74 16 114/72 98 10/19/21 08:00 98.3 F 78 16 123/89 96 10/19/21 06:00 86 18 113/76 95 10/19/21 05:00 87 18 119/78 95 10/19/21 04:00 90 18 113/74 95 10/19/21 03:00 86 16 121/77 96 04/27/22 02:00 87 16 105/63 94 L 10/19/21 01:00 91 18 117/104 94 L 10/19/21 00:09 89 18 95/73 95 10/19/21 00:00 16 127/91 98 10/18/21 23:00 86 16 140/97 97 10/18/21 22:08 87 16 127/87 98 10/18/21 16:13 98.6 F 99 18 134/78 99 Intake and Output 10/18/21 10/19/21 10/19/21 22:59 06:59 14:59 Intake Total 118 Balance 118 Intake: Oral 118 Other: Voiding Method Toilet Incontinent # Voids 1 Weight 45.359 kg 45.359 kg GENERAL DESCRIPTION: Middle-aged female lying in bed, no distress. No tachypnea or accessory muscle of respiration use. HEENT: Shows Pallor , no scleral icterus. Oral mucous membrane is dry. No pharyngeal erythema or thrush Right side of the forehead did have an area of swelling minimal redness slightly tender to touch no drainage NECK: Trachea central, no thyromegaly. LUNGS: Unlabored breathing. Clear to auscultation anteriorly. No wheeze or crackle. HEART: S1, S2, regular rate and rhythm. No loud murmur ABDOMEN: Soft, no tenderness , guarding or rigidity, no organomegaly EXTREMITIES: No edema of feet. SKIN: No rash, no masses palpable. NEUROLOGICAL: The patient is awake, alert, oriented x3, mood and affect normal. Results CBC & Chem 7: 10/19/21 08:14 10/19/21 08:14 Labs: Abnormal Lab Results - Last 24 Hours (Table) 10/18/21 10/18/21 10/19/21 Range/Units 21:53 21:53 00:22 WBC 23.3 H (3.8-10.6) k/uL RBC 3.74 L (3.80-5.40) m/uL Hgb 10.7 L (11.4-16.0) gm/dL Hct (34.0-46.0) % MCHC 30.6 L (31.0-37.0) g/dL Plt Count 858 H D (150-450) k/uL Neutrophils # 18.1 H (1.3-7.7) k/uL Sodium 121 L (137-145) mmol/L Chloride 88 L (98-107) mmol/L Glucose 651 H* (74-99) mg/dL POC Glucose (mg/dL) 561 H (75-99) mg/dL Alkaline Phosphatase 287 H (38-126) U/L Albumin 3.4 L (3.5-5.0) g/dL Urine Appearance (Clear) Urine Protein (Negative) Urine Glucose (UA) (Negative) Urine Ketones (Negative) Urine Blood (Negative) Ur Leukocyte Esterase (Negative) Urine RBC (0-5) /hpf Urine WBC (0-5) /hpf Urine Mucus (None) /hpf 10/19/21 10/19/21 10/19/21 Range/Units 02:41 06:21 07:17 WBC (3.8-10.6) k/uL RBC (3.80-5.40) m/uL Hgb (11.4-16.0) gm/dL Hct (34.0-46.0) % MCHC (31.0-37.0) g/dL Plt Count (150-450) k/uL Neutrophils # (1.3-7.7) k/uL Sodium (137-145) mmol/L Chloride (98-107) mmol/L Glucose (74-99) mg/dL POC Glucose (mg/dL) 407 H 421 H 387 H (75-99) mg/dL Alkaline Phosphatase (38-126) U/L Albumin (3.5-5.0) g/dL Urine Appearance (Clear) Urine Protein (Negative) Urine Glucose (UA) (Negative) Urine Ketones (Negative) Urine Blood (Negative) Ur Leukocyte Esterase (Negative) Urine RBC (0-5) /hpf Urine WBC (0-5) /hpf Urine Mucus (None) /hpf 10/19/21 10/19/21 10/19/21 Range/Units 08:14 08:14 09:08 WBC 18.6 H (3.8-10.6) k/uL RBC 3.59 L (3.80-5.40) m/uL Hgb 10.3 L (11.4-16.0) gm/dL Hct 33.5 L (34.0-46.0) % MCHC 30.8 L (31.0-37.0) g/dL Plt Count 841 H (150-450) k/uL Neutrophils # (1.3-7.7) k/uL Sodium 125 L (137-145) mmol/L Chloride 91 L (98-107) mmol/L Glucose 387 H (74-99) mg/dL POC Glucose (mg/dL) (75-99) mg/dL Alkaline Phosphatase (38-126) U/L Albumin (3.5-5.0) g/dL Urine Appearance Cloudy H (Clear) Urine Protein Trace H (Negative) Urine Glucose (UA) 4+ H (Negative) Urine Ketones Trace H (Negative) Urine Blood Trace H (Negative) Ur Leukocyte Esterase Small H (Negative) Urine RBC 7 H (0-5) /hpf Urine WBC 62 H (0-5) /hpf Urine Mucus Rare H (None) /hpf 10/19/21 Range/Units 11:07 WBC (3.8-10.6) k/uL RBC (3.80-5.40) m/uL Hgb (11.4-16.0) gm/dL Hct (34.0-46.0) % MCHC (31.0-37.0) g/dL Plt Count (150-450) k/uL Neutrophils # (1.3-7.7) k/uL Sodium (137-145) mmol/L Chloride (98-107) mmol/L Glucose (74-99) mg/dL POC Glucose (mg/dL) 326 H (75-99) mg/dL Alkaline Phosphatase (38-126) U/L Albumin (3.5-5.0) g/dL Urine Appearance (Clear) Urine Protein (Negative) Urine Glucose (UA) (Negative) Urine Ketones (Negative) Urine Blood (Negative) Ur Leukocyte Esterase (Negative) Urine RBC (0-5) /hpf Urine WBC (0-5) /hpf Urine Mucus (None) /hpf Microbiology - Last 24 Hours (Table) 10/19/21 00:35 Blood Culture - Final Blood Assessment and Plan (1) Infected hematoma Current Visit: Yes Status: Acute Code(s): T14.8XXA - OTHER INJURY OF UNSPECIFIED BODY REGION, INITIAL ENCOUNTER; L08.9 - LOCAL INFECTION OF THE SKIN AND SUBCUTANEOUS TISSUE, UNSP SNOMED Code(s): 516696334 Plan: 1patient presented to hospital with increasing weakness increasing pain to the forehead area of hematoma with some drainage in this patient did have no evidence of bacteremia showing both gram-positive as well as gram-negative in this patient did have significant elevated white count patient did have extens leroy work-up with a CT of the chest abdominal pelvis no evidence of any abscess or colitis. 2vancomycin pharmacy to dose target trough of 15 while watching kidney function and vancomycin trough closely and cefepime 2 g patient brought antibiotic coverage. 3blood cultures will be repeated document clearance of bacteremia. 4await surgical evaluation possible drainage and deep culture. We will follow on clinical condition and cultures to further adjust medication if needed Thank you for this consultation will follow this patient along with you Time with Patient: Greater than 30
[2021-10-20 04:51] LABS: Glucose,Whole Blood 439 mg/dL (75-99)
[2021-10-20] MEDS: SODIUM CHLORIDE 0.9% 1,000 ML IV SCH ×2 (05:48→13:47)
[2021-10-20 07:36] LABS: Glucose,Whole Blood 409 mg/dL (75-99)
[2021-10-20 07:36] LABS: Glucose,Whole Blood 213 mg/dL (75-99)
[2021-10-20] MEDS: LIPASE 5,000/PROTEASE 17,000/AMYLASE 24,000 PO SCH ×3 (08:26→17:15)
[2021-10-20] MEDS: INSULIN DETEMIR (LEVEMIR) 100 UNIT/ML SYR SQ SCH (08:26)
[2021-10-20] MEDS: lamoTRIgine 100 MG TAB PO SCH (08:27)
[2021-10-20] MEDS: metFORMIN 850 MG TAB PO SCH ×2 (08:27→20:18)
[2021-10-20] MEDS: HEPARIN SODIUM,PORCINE/PF 5,000 UNIT/0.5 ML SYRINGE SQ SCH ×3 (08:27→20:21)
[2021-10-20] MEDS: INSULIN ASPART (NovoLOG) 100 UNIT/ML VIAL SQ SCH ×7 (08:28→20:18)
[2021-10-20] MEDS: CEFEPIME 2 GM in SODIUM CHLORIDE 0.9% 100 ML IVPB SCH ×3 (08:29→23:14)
[2021-10-20] MEDS: NICOTINE 21MG/24HR PATCH TRANSDERM SCH (08:45)
[2021-10-20] MEDS: FAMOTIDINE 20 MG TAB PO SCH ×2 (08:45→20:18)
[2021-10-20] MEDS ORDERED: SENNOSIDES 8.6 MG TAB PO PRN (08:58)
[2021-10-20] MEDS ORDERED: NAPROXEN PO PRN (09:06)
[2021-10-20] MEDS ORDERED: VANCOMYCIN TROUGH DUE 1 EACH MISC MISCELLANE ONE (12:00)
[2021-10-20 12:20] LABS: Glucose,Whole Blood 135 mg/dL (75-99)
--- NOTE | 2021-10-20 13:42 | P.PN ---
Subjective Progress Note Date: 10/20/21 CHIEF COMPLAINT: Right forehead hematoma HISTORY OF PRESENT ILLNESS: Patient reports that she had spontaneous drainage from the right for at the hematoma. She reports that the drainage was bloody and did have some pus. She reports that the pain has decreased. The hematoma is softer. She reports overall feeling better today. Afebrile. No new labs for today yesterday's WBC was 18. Patient does have a positive blood culture. She is on antibiotics. She is followed by infectious disease. PHYSICAL EXAM: VITAL SIGNS: Reviewed. GENERAL: Well-developed in no acute distress. HEENT: Right for had hematoma has decreased in size. The area is more fluctuant. No drainage currently during my exam. ABDOMEN: Soft. Nondistended. Nontender. NEUROLOGIC: Alert and oriented. Cranial nerves II through XII grossly intact. ASSESSMENT: 1. Right forehead hematoma with spontaneous drainage PLAN: -No surgical intervention planned -Continue supportive care -Recommend daily showers Physician Tool And Die Maker Apprentice note has been reviewed by physician. Signing provider agrees with the documented findings, assessment, and plan of care. Objective - Vital Signs Vital signs: Vital Signs Temp 98.4 F 10/20/21 12:46 Pulse 80 10/20/21 12:46 Resp 16 10/20/21 12:46 BP 111/73 10/20/21 12:46 Pulse Ox 100 10/20/21 12:46 Intake & Output 10/19/21 10/20/21 10/20/21 18:59 06:59 18:59 Intake Total 236 2570 Balance 236 2570 Weight 45.359 kg Intake: Intake, IV Titration 1150 Amount Cefepime 2 gm In Sodium 100 Chloride 0.9% 100 ml @ 25 mls/hr IVPB Q8HR [facility] Rx# :[id number] Sodium Chloride 0.9% 1, 800 000 ml @ 100 mls/hr IV . Q10H [facility] Rx#:[id number] Vancomycin 750 mg In 250 Sodium Chloride 0.9% 250 ml @ 125 mls/hr IVPB Q12H [facility] Rx#:[id number] Oral 236 1420 Other: Voiding Method Toilet Toilet Toilet Incontinent Incontinent Incontinent # Voids 3 2 - Labs CBC & Chem 7: 10/19/21 08:14 10/19/21 08:14 Labs: Abnormal Lab Results - Last 24 Hours (Table) 10/19/21 10/19/21 10/19/21 Range/Units 08:14 08:14 17:04 POC Glucose (mg/dL) 251 H (75-99) mg/dL Hemoglobin A1c 13.3 H (0.0-6.0) % Procalcitonin 0.23 H (0.02-0.09) ng/mL 10/19/21 10/20/21 10/20/21 Range/Units 20:44 04:49 07:31 POC Glucose (mg/dL) 116 H 439 H 213 H (75-99) mg/dL Hemoglobin A1c (0.0-6.0) % Procalcitonin (0.02-0.09) ng/mL 10/20/21 10/20/21 Range/Units 07:34 12:17 POC Glucose (mg/dL) 409 H 135 H (75-99) mg/dL Hemoglobin A1c (0.0-6.0) % Procalcitonin (0.02-0.09) ng/mL Microbiology - Last 24 Hours (Table) 10/19/21 00:35 Blood Culture Gram Stain - Preliminary Blood Blood Culture - Preliminary Enterococcus faecalis Klebsiella pneumoniae Coagulase Negative Staph 10/19/21 00:35 Blood Culture - Final Blood
[2021-10-20 17:15] VITALS: BMI 16.6
[2021-10-20 17:15] LABS: Glucose,Whole Blood 121 mg/dL (75-99)
--- NOTE | 2021-10-20 18:15 | P.PN ---
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 Patient was discharged home with home care. But before discharge she left AMA. She presents this time because of her right side to forehead hematoma was getting because over the last 4 days and 3 episodes with some of bloody discharge noted from the mass. Now there is no more discharge. No open wound but there is dressed With erythema on the top of it. Also complaining of increasing pain which is restricted currently 08/04 after she received morphine. She has some cough and white phlegm for the last 2 weeks but is not getting worse, no worsening dyspnea, no more than expected left-sided chest pain with coughing. She states she was taking her medication and insulin at home. She wants to see her PCP Susi Archuleta for her worsening hematoma symptoms as above. She is 50 nicotine a lot. She denies alcohol or illicit drugs Vitals stable, patient is afebrile. None showing leukocytosis at 23.3. Hemoglobin 10.7, platelet count elevated 858. INR 0.9, sodium 121, glucose elevated more than 650. Accu-Chek currently 407 and 421. Liver enzymes not elevated CT of the head and cervical spine,: per radiologist, cerebral atrophy. No acute intracranial abnormality. There is right frontal scalp hematoma without much change in size. There is right maxillary sinusitis. Also no acute abnormal ~cervical spine. No fracture CT of the chest, abdomen and pelvis: Mild interstitial ground glass infiltrate of the right upper lobe. Some patchy small areas interstitial infiltrates in the posterior right lung. On admission she was started on IV vancomycin and insulin and 1 dose of cefepime. Surgery team were consulted pt forehead mass is slightly better, dressing is in place pt is kept on antibiotic vancomycin and cefepime with id team following closely add colace for constipation c/w pain management Objective - Vital Signs Vital signs: Vital Signs Temp 98.4 F 10/20/21 12:46 Pulse 80 10/20/21 12:46 Resp 16 10/20/21 12:46 BP 111/73 10/20/21 12:46 Pulse Ox 100 10/20/21 12:46 Intake & Output 10/19/21 10/20/21 10/20/21 18:59 06:59 18:59 Intake Total 236 2570 Balance 236 2570 Weight 45.359 kg Intake: Intake, IV Titration 1150 Amount Cefepime 2 gm In Sodium 100 Chloride 0.9% 100 ml @ 25 mls/hr IVPB Q8HR [facility] Rx# :[id number] Sodium Chloride 0.9% 1, 800 000 ml @ 100 mls/hr IV . Q10H [facility] Rx#:[id number] Vancomycin 750 mg In 250 Sodium Chloride 0.9% 250 ml @ 125 mls/hr IVPB Q12H [facility] Rx#:[id number] Oral 236 1420 Other: Voiding Method Toilet Toilet Toilet Incontinent Incontinent Incontinent # Voids 3 2 - Exam GENERAL: The patient is alert and oriented x3, not in any acute distress. Well developed, well nourished. - HEENT: Pupils are round and equally reacting to light. EOMI. No scleral icterus. No conjunctival pallor. Normocephalic, atraumatic. No pharyngeal erythema. No thyromegaly. Right forehead fluctuant hematoma about 2-3 inches in size with redness, dressed And tenderness. CARDIOVASCULAR: S1 and S2 present. No murmurs, rubs, or gallops. PULMONARY: Chest is clear to auscultation, no wheezing or crackles. ABDOMEN: Soft, nontender, nondistended, normoactive bowel sounds. No palpable organomegaly. MUSCULOSKELETAL: No joint swelling or deformity. EXTREMITIES: No cyanosis, clubbing, or pedal edema. NEUROLOGICAL: Gross neurological examination did not reveal any focal deficits. SKIN: No rashes. No petechiae - Labs CBC & Chem 7: 10/19/21 08:14 10/19/21 08:14 Labs: Abnormal Lab Results - Last 24 Hours (Table) 10/19/21 10/19/21 10/19/21 Range/Units 08:14 08:14 17:04 POC Glucose (mg/dL) 251 H (75-99) mg/dL Hemoglobin A1c 13.3 H (0.0-6.0) % Procalcitonin 0.23 H (0.02-0.09) ng/mL 10/19/21 10/20/21 10/20/21 Range/Units 20:44 04:49 07:31 POC Glucose (mg/dL) 116 H 439 H 213 H (75-99) mg/dL Hemoglobin A1c (0.0-6.0) % Procalcitonin (0.02-0.09) ng/mL 10/20/21 10/20/21 Range/Units 07:34 12:17 POC Glucose (mg/dL) 409 H 135 H (75-99) mg/dL Hemoglobin A1c (0.0-6.0) % Procalcitonin (0.02-0.09) ng/mL Microbiology - Last 24 Hours (Table) 10/19/21 00:35 Blood Culture Gram Stain - Preliminary Blood Blood Culture - Preliminary Enterococcus faecalis Klebsiella pneumoniae Coagulase Negative Staph 10/19/21 00:35 Blood Culture - Final Blood Assessment and Plan Assessment: Possible infected hematoma to the right side of the forehead Possible mild interstitial pneumonia, currently asymptomatic Recent history of fall 2 weeks ago with C1 transverse process fracture, Multiple traumatic left rib fractures, 3, 4, 5, 6, 8, 9 with pneumothorax Diabetes mellitus, type II, with hyperglycemia, present on admission Diabetic neuropathy Nicotine dependence History of depression, bipolar, PTSD and schizophrenia Nicotine dependence noncompliance including nonadherence to medication Substance abuse including history of marijuana and prescription drug abuse History of CVA/TIA History of GERD Hyperlipidemia History of chronic pancreatitis Plan: This is a pleasant 61 years old female who presents with hyperglycemia And infected hematoma of forehead Continue with antibiotic, currently on IV vancomycin and cefepime c/w normal saline Follow-up with general surgery team Resume Levemir and NovoLog with insulin sliding scale, resume metformin Infectious disease team consult Labs and medication were reviewed.. Continue same treatment. Continue with symptomatic treatment. Resume home medication. Monitor lytes and vitals. DVT and GI prophylaxis. Further recommendations depends on the clinical course of the patient DVT prophylaxis: Subcutaneous heparin GI Prophylaxis: Pepcid PT/OT: Pending Prognosis is guarded
[2021-10-20] MEDS ORDERED: NAPROXEN 250 MG TAB PO PRN (18:23)
[2021-10-20 20:13] LABS: Glucose,Whole Blood 129 mg/dL (75-99)
[2021-10-20] MEDS: QUEtiapine 100 MG TAB PO SCH (20:18)
[2021-10-20] MEDS: ARIPiprazole 10 MG TAB PO SCH (20:18)
--- NOTE | 2021-10-20 22:15 | P.PN ---
Subjective Progress Note Date: 10/20/21 Principal diagnosis: forehead possible infected hematoma and bacteremia Patient is a 61-year-old female presented to the hospital for weakness for in this patient did have a hematoma to the right side of the forehead patient noticed to have evidence of bacteremia. On today's evaluation that is 10/20/2021, the patient denies having any fever or any chills, patient mentioned she did have slight drainage from the forehead area overall swelling and pain has decreased no chest pain shortness of breath or cough no abdominal pain or diarrhea Objective - Vital Signs Vital signs: Vital Signs Temp 98.4 F 10/20/21 12:46 Pulse 80 10/20/21 12:46 Resp 16 10/20/21 12:46 BP 111/73 10/20/21 12:46 Pulse Ox 100 10/20/21 12:46 Intake & Output 10/19/21 10/20/21 10/20/21 18:59 06:59 18:59 Intake Total 236 2570 Balance 236 2570 Weight 45.359 kg Intake: Intake, IV Titration 1150 Amount Cefepime 2 gm In Sodium 100 Chloride 0.9% 100 ml @ 25 mls/hr IVPB Q8HR [facility] Rx# :[id number] Sodium Chloride 0.9% 1, 800 000 ml @ 100 mls/hr IV . Q10H [facility] Rx#:[id number] Vancomycin 750 mg In 250 Sodium Chloride 0.9% 250 ml @ 125 mls/hr IVPB Q12H [facility] Rx#:[id number] Oral 236 1420 Other: Voiding Method Toilet Toilet Toilet Incontinent Incontinent Incontinent # Voids 3 2 - Exam GENERAL DESCRIPTION: Middle-aged female lying in bed in no distress. HEENT: The forehead swelling has slightly decreased RESPIRATORY SYSTEM: Unlabored breathing , decreased breath sounds at bases HEART: S1 S2 regular rate and rhythm , ABDOMEN: Soft , no tenderness EXTREMITIES: No edema feet - Labs CBC & Chem 7: 10/19/21 08:14 10/19/21 08:14 Labs: Abnormal Lab Results - Last 24 Hours (Table) 10/19/21 10/19/21 10/19/21 Range/Units 08:14 08:14 17:04 POC Glucose (mg/dL) 251 H (75-99) mg/dL Hemoglobin A1c 13.3 H (0.0-6.0) % Procalcitonin 0.23 H (0.02-0.09) ng/mL 10/19/21 10/20/21 10/20/21 Range/Units 20:44 04:49 07:31 POC Glucose (mg/dL) 116 H 439 H 213 H (75-99) mg/dL Hemoglobin A1c (0.0-6.0) % Procalcitonin (0.02-0.09) ng/mL 10/20/21 10/20/21 Range/Units 07:34 12:17 POC Glucose (mg/dL) 409 H 135 H (75-99) mg/dL Hemoglobin A1c (0.0-6.0) % Procalcitonin (0.02-0.09) ng/mL Microbiology - Last 24 Hours (Table) 10/19/21 00:35 Blood Culture Gram Stain - Preliminary Blood Blood Culture - Preliminary Enterococcus faecalis Klebsiella pneumoniae Coagulase Negative Staph 10/19/21 00:35 Blood Culture - Final Blood Assessment and Plan (1) Infected hematoma Current Visit: Yes Status: Acute Code(s): T14.8XXA - OTHER INJURY OF UNSPECIFIED BODY REGION, INITIAL ENCOUNTER; L08.9 - LOCAL INFECTION OF THE SKIN AND SUBCUTANEOUS TISSUE, UNSP SNOMED Code(s): 440163598 Plan: 1patient presented to hospital with increasing weakness increasing pain to the forehead area of hematoma with some drainage in this patient did have no evidence of bacteremia showing both gram-positive as well as gram-negative in this patient did have significant elevated white count patient did have extensive work-up with a CT of the chest abdominal pelvis no evidence of any abscess or colitis. 2vancomycin pharmacy to dose target trough of 15 while watching kidney function and vancomycin trough closely and cefepime 2 g every 8 hours we'll provide antibiotic coverage. 3blood cultures has been repeated document clearance of bacteremia. 4surgical team recommended against drainage she did have some spontaneous drainage and cultures will be obtained Time with Patient: Less than 30
[2021-10-21] MEDS: HYDROcodone/APAP 5-325MG 1 EACH TAB PO PRN ×3 (05:08→17:27)
[2021-10-21] MEDS: VANCOMYCIN 750 MG in SODIUM CHLORIDE 0.9% 250 ML IVPB SCH (05:09)
[2021-10-21 07:14] LABS: Glucose,Whole Blood 236 mg/dL (75-99)
[2021-10-21] MEDS: lamoTRIgine 100 MG TAB PO SCH (09:01)
[2021-10-21] MEDS: FAMOTIDINE 20 MG TAB PO SCH ×2 (09:01→20:46)
[2021-10-21] MEDS: INSULIN ASPART (NovoLOG) 100 UNIT/ML VIAL SQ SCH ×7 (09:02→20:46)
[2021-10-21] MEDS: INSULIN DETEMIR (LEVEMIR) 100 UNIT/ML SYR SQ SCH (09:02)
[2021-10-21] MEDS: SODIUM CHLORIDE 0.9% 1,000 ML IV SCH ×2 (09:02→14:35)
[2021-10-21] MEDS: CEFEPIME 2 GM in SODIUM CHLORIDE 0.9% 100 ML IVPB SCH ×2 (09:03→16:36)
[2021-10-21] MEDS: HEPARIN SODIUM,PORCINE/PF 5,000 UNIT/0.5 ML SYRINGE SQ SCH ×2 (09:04→20:46)
[2021-10-21] MEDS: LIPASE 5,000/PROTEASE 17,000/AMYLASE 24,000 PO SCH ×3 (09:05→17:23)
[2021-10-21] MEDS: metFORMIN 850 MG TAB PO SCH ×2 (09:07→21:53)
[2021-10-21] MEDS: NICOTINE 21MG/24HR PATCH TRANSDERM SCH (09:08)
[2021-10-21 09:59] LABS: African American GFR (CKD) 115.3 (60.0-200.0); BUN/Creat Ratio 23.82 Ratio (12.00-20.00); Blood Urea Nitrogen 14.1 mg/dL (9.0-27.0); Calcium 8.5 mg/dL (8.7-10.3); Carbon Dioxide 23.7 mmol/L (20.0-27.5); Magnesium 1.7 mg/dL (1.5-2.4); Non-African American GFR(CKD) 99.5 (60.0-200.0); Potassium 5.2 mmol/L (3.5-5.5)
[2021-10-21 10:05] LABS: HCT 27.8 % (37.2-46.3); HGB 8.4 g/dL (12.0-15.0); MCH 27.6 pg (27.0-32.0); MCHC 30.2 g/dL (32.0-37.0); MCV 91.4 fL (80.0-97.0); Mean Platelet Volume 9.6 fL (9.5-12.2); NRBC Per 100 WBC 0 /100 WBCS (0.0-0.0); Platelet Count 821 X 10*3/uL (140-440); RBC 3.04 X 10*6/uL (4.10-5.20); RDW 13.2 % (11.5-14.5); WBC 12.85 X 10*3/uL (4.50-10.00)
[2021-10-21 10:26] LABS: Basophils # (A) 0.11 X 10*3/uL (0.00-0.10); Basophils % (A) 0.9 %; Eosinophils # (A) 0.23 X 10*3/uL (0.04-0.35); Eosinophils % (A) 1.8 %; Immature Grans, Automated 2.2 %; Lymphocytes # (A) 4.18 X 10*3/uL (0.90-5.00); Lymphocytes % (A) 32.5 %; Monocytes # (A) 0.79 X 10*3/uL (0.20-1.00); Monocytes % (A) 6.1 %; Neutrophils # (A) 7.26 X 10*3/uL (1.80-7.70); Neutrophils % (A) 56.5 %
[2021-10-21 11:44] LABS: Glucose,Whole Blood 179 mg/dL (75-99)
[2021-10-21] MEDS: hydrOXYzine pamoate 25 MG CAP PO PRN ×2 (11:49→20:59)
[2021-10-21] MEDS ORDERED: VANCOMYCIN TROUGH DUE 1 EACH MISC MISCELLANE ONE (13:00)
--- NOTE | 2021-10-21 13:29 | P.PN ---
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 Patient was discharged home with home care. But before discharge she left AMA. She presents this time because of her right side to forehead hematoma was getting because over the last 4 days and 3 episodes with some of bloody discharge noted from the mass. Now there is no more discharge. No open wound but there is dressed With erythema on the top of it. Also complaining of increasing pain which is restricted currently 08/04 after she received morphine. She has some cough and white phlegm for the last 2 weeks but is not getting worse, no worsening dyspnea, no more than expected left-sided chest pain with coughing. She states she was taking her medication and insulin at home. She wants to see her PCP Susi Archuleta for her worsening hematoma symptoms as above. She is 50 nicotine a lot. She denies alcohol or illicit drugs Vitals stable, patient is afebrile. None showing leukocytosis at 23.3. Hemoglobin 10.7, platelet count elevated 858. INR 0.9, sodium 121, glucose elevated more than 650. Accu-Chek currently 407 and 421. Liver enzymes not elevated CT of the head and cervical spine,: per radiologist, cerebral atrophy. No acute intracranial abnormality. There is right frontal scalp hematoma without much change in size. There is right maxillary sinusitis. Also no acute abnormal ~cervical spine. No fracture CT of the chest, abdomen and pelvis: Mild interstitial ground glass infiltrate of the right upper lobe. Some patchy small areas interstitial infiltrates in the posterior right lung. On admission she was started on IV vancomycin and insulin and 1 dose of cefepime. Surgery team were consulted 10/20/2021 pt forehead mass is slightly better, dressing is in place pt is kept on antibiotic vancomycin and cefepime with id team following closely add colace for constipation c/w pain management 10/21/2021 Patient forehead swelling. And there was purulent discharge with significant decrease in the swelling. With culture has been sent. Repeat blood culture are pending. Hemodynamically stable and leukocytosis improving. Hemoglobin 8.4. Patient currently on IV vancomycin and cefepime Objective - Vital Signs Vital signs: Vital Signs Temp 98.4 F 10/21/21 05:00 Pulse 83 10/21/21 08:35 Resp 18 10/21/21 08:35 BP 117/75 10/21/21 05:00 Pulse Ox 100 10/21/21 05:00 Intake & Output 10/20/21 10/21/21 10/21/21 18:59 06:59 18:59 Intake Total 240 1850 Balance 240 1850 Weight 45.359 kg Intake: Intake, IV Titration 1250 Amount Cefepime 2 gm In Sodium 100 Chloride 0.9% 100 ml @ 25 mls/hr IVPB Q8HR [facility] Rx# :[id number] Sodium Chloride 0.9% 1, 900 000 ml @ 75 mls/hr IV . [id number] [facility] Rx#:[id number] Vancomycin 750 mg In 250 Sodium Chloride 0.9% 250 ml @ 125 mls/hr IVPB Q8H [facility] Rx#:[id number] Oral 240 600 Other: Voiding Method Toilet Toilet Toilet Incontinent Incontinent Incontinent # Voids 3 2 - Exam GENERAL: The patient is alert and oriented x3, not in any acute distress. Well developed, well nourished. - HEENT: Pupils are round and equally reacting to light. EOMI. No scleral icterus. No conjunctival pallor. Normocephalic, atraumatic. No pharyngeal erythema. No thyromegaly. Right forehead fluctuant hematoma about 2-3 inches in size with redness, dressed And tenderness. CARDIOVASCULAR: S1 and S2 present. No murmurs, rubs, or gallops. PULMONARY: Chest is clear to auscultation, no wheezing or crackles. ABDOMEN: Soft, nontender, nondistended, normoactive bowel sounds. No palpable organomegaly. MUSCULOSKELETAL: No joint swelling or deformity. EXTREMITIES: No cyanosis, clubbing, or pedal edema. NEUROLOGICAL: Gross neurological examination did not reveal any focal deficits. SKIN: No rashes. No petechiae - Labs CBC & Chem 7: 10/21/21 05:44 10/21/21 05:44 Labs: Abnormal Lab Results - Last 24 Hours (Table) 10/20/21 10/20/21 10/20/21 Range/Units 12:17 17:11 20:12 WBC (4.50-10.00) X 10*3/uL RBC (4.10-5.20) X 10*6/uL Hgb (12.0-15.0) g/dL Hct (37.2-46.3) % MCHC (32.0-37.0) g/dL Plt Count (140-440) X 10*3/uL Plt Count Comment Immature Gran # (0.00-0.04) X 10*3/uL Basophils # (0.00-0.10) X 10*3/uL Sodium (135-145) mmol/L BUN/Creatinine Ratio (12.00-20.00) Ratio Glucose (70-110) mg/dL POC Glucose (mg/dL) 135 H 121 H 129 H (75-99) mg/dL Calcium (8.7-10.3) mg/dL 10/21/21 10/21/21 10/21/21 Range/Units 05:44 05:44 07:13 WBC 12.85 H (4.50-10.00) X 10*3/uL RBC 3.04 L (4.10-5.20) X 10*6/uL Hgb 8.4 L (12.0-15.0) g/dL Hct 27.8 L (37.2-46.3) % MCHC 30.2 L (32.0-37.0) g/dL Plt Count 821 H (140-440) X 10*3/uL Plt Count Comment INCREASED A Immature Gran # 0.28 H (0.00-0.04) X 10*3/uL Basophils # 0.11 H (0.00-0.10) X 10*3/uL Sodium 131 L (135-145) mmol/L BUN/Creatinine Ratio 23.82 H (12.00-20.00) Ratio Glucose 188 H (70-110) mg/dL POC Glucose (mg/dL) 236 H (75-99) mg/dL Calcium 8.5 L (8.7-10.3) mg/dL Microbiology - Last 24 Hours (Table) 10/20/21 17:25 Gram Stain - Preliminary Head Wound Culture - Preliminary 10/20/21 17:25 Anaerobic Culture - Preliminary Head 10/19/21 14:54 Blood Culture - Preliminary Blood No Growth after 24 hours 10/19/21 00:35 Blood Culture Gram Stain - Preliminary Blood Blood Culture - Preliminary Enterococcus faecalis Klebsiella pneumoniae Coagulase Negative Staph Assessment and Plan Assessment: Possible infected hematoma to the right side of the forehead Possible mild interstitial pneumonia, currently asymptomatic Recent history of fall 2 weeks ago with C1 transverse process fracture, Multiple traumatic left rib fractures, 3, 4, 5, 6, 8, 9 with pneumothorax Diabetes mellitus, type II, with hyperglycemia, present on admission Diabetic neuropathy Nicotine dependence History of depression, bipolar, PTSD and schizophrenia Nicotine dependence noncompliance including nonadherence to medication Substance abuse including history of marijuana and prescription drug abuse History of CVA/TIA History of GERD Hyperlipidemia History of chronic pancreatitis Plan: This is a pleasant 61 years old female who presents with hyperglycemia And infected hematoma of forehead Continue with antibiotic, currently on IV vancomycin and cefepime c/w normal saline Follow-up with general surgery team Resume Levemir and NovoLog with insulin sliding scale, resume metformin Infectious disease team consult Labs and medication were reviewed.. Continue same treatment. Continue with symptomatic treatment. Resume home medication. Monitor lytes and vitals. DVT and GI prophylaxis. Further recommendations depends on the clinical course of the patient DVT prophylaxis: Subcutaneous heparin GI Prophylaxis: Pepcid PT/OT: Pending Prognosis is guarded
[2021-10-21] MEDS: VANCOMYCIN 1,000 MG in SODIUM CHLORIDE 0.9% 250 ML IVPB SCH ×2 (14:36→22:03)
--- NOTE | 2021-10-21 14:39 | P.PN ---
Subjective Progress Note Date: 10/21/21 CHIEF COMPLAINT: Right forehead hematoma HISTORY OF PRESENT ILLNESS: Patient's right forehead hematoma has spontaneous drained. It has decreased greatly and is almost completely gone. The drainage is purulent. Patient reports that she feels much better. Afebrile. WBC 18.6 down to 12.85 PHYSICAL EXAM: VITAL SIGNS: Reviewed. GENERAL: Well-developed in no acute distress. HEENT: Right forehead hematoma almost completely resolved. There is some purulent drainage noted ABDOMEN: Soft. Nondistended. Nontender. NEUROLOGIC: Alert and oriented. Cranial nerves II through XII grossly intact. ASSESSMENT: 1. Right infected forehead hematoma with spontaneous drainage PLAN: -Patient can be discharged from surgical standpoint when medically cleared -No surgical intervention planned -Continue supportive care -Recommend daily showers -Surgical service will sign off. Please call with any questions or concerns Physician [employer] note has been reviewed by physician. Signing provider agrees with the documented findings, assessment, and plan of care. Objective - Vital Signs Vital signs: Vital Signs Temp 97.9 F 10/21/21 11:44 Pulse 67 10/21/21 11:44 Resp 18 10/21/21 11:44 BP 106/69 10/21/21 11:44 Pulse Ox 100 10/21/21 11:44 Intake & Output 10/20/21 10/21/21 10/21/21 18:59 06:59 18:59 Intake Total 240 1850 Balance 240 1850 Weight 45.359 kg Intake: Intake, IV Titration 1250 Amount Cefepime 2 gm In Sodium 100 Chloride 0.9% 100 ml @ 25 mls/hr IVPB Q8HR [facility] Rx# :[id number] Sodium Chloride 0.9% 1, 900 000 ml @ 75 mls/hr IV . [id number] [facility] Rx#:[id number] Vancomycin 750 mg In 250 Sodium Chloride 0.9% 250 ml @ 125 mls/hr IVPB Q8H [facility] Rx#:[id number] Oral 240 600 Other: Voiding Method Toilet Toilet Toilet Incontinent Incontinent Incontinent # Voids 3 2 - Labs CBC & Chem 7: 10/21/21 05:44 10/21/21 05:44 Labs: Abnormal Lab Results - Last 24 Hours (Table) 10/20/21 10/20/21 10/21/21 Range/Units 17:11 20:12 05:44 WBC 12.85 H (4.50-10.00) X 10*3/uL RBC 3.04 L (4.10-5.20) X 10*6/uL Hgb 8.4 L (12.0-15.0) g/dL Hct 27.8 L (37.2-46.3) % MCHC 30.2 L (32.0-37.0) g/dL Plt Count 821 H (140-440) X 10*3/uL Plt Count Comment INCREASED A Immature Gran # 0.28 H (0.00-0.04) X 10*3/uL Basophils # 0.11 H (0.00-0.10) X 10*3/uL Sodium (135-145) mmol/L BUN/Creatinine Ratio (12.00-20.00) Ratio Glucose (70-110) mg/dL POC Glucose (mg/dL) 121 H 129 H (75-99) mg/dL Calcium (8.7-10.3) mg/dL 10/21/21 10/21/21 10/21/21 Range/Units 05:44 07:13 11:43 WBC (4.50-10.00) X 10*3/uL RBC (4.10-5.20) X 10*6/uL Hgb (12.0-15.0) g/dL Hct (37.2-46.3) % MCHC (32.0-37.0) g/dL Plt Count (140-440) X 10*3/uL Plt Count Comment Immature Gran # (0.00-0.04) X 10*3/uL Basophils # (0.00-0.10) X 10*3/uL Sodium 131 L (135-145) mmol/L BUN/Creatinine Ratio 23.82 H (12.00-20.00) Ratio Glucose 188 H (70-110) mg/dL POC Glucose (mg/dL) 236 H 179 H (75-99) mg/dL Calcium 8.5 L (8.7-10.3) mg/dL Microbiology - Last 24 Hours (Table) 10/19/21 00:35 Blood Culture Gram Stain - Preliminary Blood Blood Culture - Preliminary Enterococcus faecalis Klebsiella pneumoniae Coagulase Negative Staph 10/20/21 17:25 Gram Stain - Preliminary Head Wound Culture - Preliminary 10/20/21 17:25 Anaerobic Culture - Preliminary Head 10/19/21 14:54 Blood Culture - Preliminary Blood No Growth after 24 hours
--- NOTE | 2021-10-21 17:04 | P.PN ---
Subjective Progress Note Date: 10/21/21 Principal diagnosis: forehead possible infected hematoma and bacteremia Patient is a 61-year-old female presented to the hospital for weakness for in this patient did have a hematoma to the right side of the forehead patient noticed to have evidence of bacteremia. On today's evaluation that is 10/21/2021, the patient remains to be afebrile, patient forehead area overall swelling and pain has decreased in intensity, the patient denies chest pain shortness of breath or cough no abdominal pain or diarrhea Objective - Vital Signs Vital signs: Vital Signs Temp 97.9 F 10/21/21 11:44 Pulse 67 10/21/21 11:44 Resp 18 10/21/21 11:44 BP 106/69 10/21/21 11:44 Pulse Ox 100 10/21/21 11:44 Intake & Output 10/20/21 10/21/21 10/21/21 18:59 06:59 18:59 Intake Total 240 1850 Balance 240 1850 Weight 45.359 kg Intake: Intake, IV Titration 1250 Amount Cefepime 2 gm In Sodium 100 Chloride 0.9% 100 ml @ 25 mls/hr IVPB Q8HR [facility] Rx# :[id number] Sodium Chloride 0.9% 1, 900 000 ml @ 75 mls/hr IV . [id number] [facility] Rx#:[id number] Vancomycin 750 mg In 250 Sodium Chloride 0.9% 250 ml @ 125 mls/hr IVPB Q8H [facility] Rx#:[id number] Oral 240 600 Other: Voiding Method Toilet Toilet Toilet Incontinent Incontinent Incontinent # Voids 3 2 - Exam GENERAL DESCRIPTION: Middle-aged female lying in bed in no distress. HEENT: The forehead swelling has slightly decreased RESPIRATORY SYSTEM: Unlabored breathing , decreased breath sounds at bases HEART: S1 S2 regular rate and rhythm , ABDOMEN: Soft , no tenderness EXTREMITIES: No edema feet - Labs CBC & Chem 7: 10/21/21 05:44 10/21/21 05:44 Labs: Abnormal Lab Results - Last 24 Hours (Table) 10/20/21 10/20/21 10/21/21 Range/Units 17:11 20:12 05:44 WBC 12.85 H (4.50-10.00) X 10*3/uL RBC 3.04 L (4.10-5.20) X 10*6/uL Hgb 8.4 L (12.0-15.0) g/dL Hct 27.8 L (37.2-46.3) % MCHC 30.2 L (32.0-37.0) g/dL Plt Count 821 H (140-440) X 10*3/uL Plt Count Comment INCREASED A Immature Gran # 0.28 H (0.00-0.04) X 10*3/uL Basophils # 0.11 H (0.00-0.10) X 10*3/uL Sodium (135-145) mmol/L BUN/Creatinine Ratio (12.00-20.00) Ratio Glucose (70-110) mg/dL POC Glucose (mg/dL) 121 H 129 H (75-99) mg/dL Calcium (8.7-10.3) mg/dL 10/21/21 10/21/21 10/21/21 Range/Units 05:44 07:13 11:43 WBC (4.50-10.00) X 10*3/uL RBC (4.10-5.20) X 10*6/uL Hgb (12.0-15.0) g/dL Hct (37.2-46.3) % MCHC (32.0-37.0) g/dL Plt Count (140-440) X 10*3/uL Plt Count Comment Immature Gran # (0.00-0.04) X 10*3/uL Basophils # (0.00-0.10) X 10*3/uL Sodium 131 L (135-145) mmol/L BUN/Creatinine Ratio 23.82 H (12.00-20.00) Ratio Glucose 188 H (70-110) mg/dL POC Glucose (mg/dL) 236 H 179 H (75-99) mg/dL Calcium 8.5 L (8.7-10.3) mg/dL Microbiology - Last 24 Hours (Table) 10/19/21 00:35 Blood Culture Gram Stain - Preliminary Blood Blood Culture - Preliminary Enterococcus faecalis Klebsiella pneumoniae Coagulase Negative Staph 10/20/21 17:25 Gram Stain - Preliminary Head Wound Culture - Preliminary 10/20/21 17:25 Anaerobic Culture - Preliminary Head 10/19/21 14:54 Blood Culture - Preliminary Blood No Growth after 24 hours Assessment and Plan (1) Infected hematoma Current Visit: Yes Status: Acute Code(s): T14.8XXA - OTHER INJURY OF UNSPECIFIED BODY REGION, INITIAL ENCOUNTER; L08.9 - LOCAL INFECTION OF THE SKIN AND SUBCUTANEOUS TISSUE, UNSP SNOMED Code(s): 481224479 Plan: 1patient presented to hospital with increasing weakness increasing pain to the forehead area of hematoma with some drainage in this patient did have no evidence of bacteremia showing both gram-positive as well as gram-negative in this patient did have significant elevated white count patient did have extensive work-up with a CT of the chest abdominal pelvis no evidence of any abscess or colitis. 2vancomycin pharmacy to dose target trough of 15 while watching kidney function and vancomycin trough closely and cefepime 2 g every 8 hours will provide antibiotic coverage. 3blood cultures has been repeated document clearance of bacteremia. 4patient did have some spontaneous drainage and cultures has been obtained whic h are currently pending, antibiotic will be adjusted further on the basis of these cultures Time with Patient: Less than 30
[2021-10-21 17:10] LABS: Glucose,Whole Blood 161 mg/dL (75-99)
[2021-10-21] MEDS: ARIPiprazole 10 MG TAB PO SCH (20:46)
[2021-10-21] MEDS: QUEtiapine 100 MG TAB PO SCH (20:46)
[2021-10-21 20:58] LABS: Glucose,Whole Blood 116 mg/dL (75-99)
[2021-10-22] MEDS: SODIUM CHLORIDE 0.9% 1,000 ML IV SCH ×2 (00:12→16:02)
[2021-10-22] MEDS: CEFEPIME 2 GM in SODIUM CHLORIDE 0.9% 100 ML IVPB SCH ×3 (00:12→16:03)
[2021-10-22] MEDS: VANCOMYCIN 1,000 MG in SODIUM CHLORIDE 0.9% 250 ML IVPB SCH ×2 (05:16→14:06)
[2021-10-22 06:56] LABS: Glucose,Whole Blood 71 mg/dL (75-99)
[2021-10-22 07:27] LABS: African American GFR (CKD) >90 (>60 ml/min/1.73 sqM); Non-African American GFR(CKD) >90 (>60 ml/min/1.73 sqM)
[2021-10-22] MEDS: INSULIN ASPART (NovoLOG) 100 UNIT/ML VIAL SQ SCH ×7 (08:03→20:39)
[2021-10-22] MEDS: LIPASE 5,000/PROTEASE 17,000/AMYLASE 24,000 PO SCH ×3 (09:00→17:31)
[2021-10-22] MEDS: FAMOTIDINE 20 MG TAB PO SCH ×2 (09:01→20:29)
[2021-10-22] MEDS: metFORMIN 850 MG TAB PO SCH ×2 (09:01→20:39)
[2021-10-22] MEDS: HYDROcodone/APAP 5-325MG 1 EACH TAB PO PRN ×3 (09:01→20:38)
[2021-10-22] MEDS: INSULIN DETEMIR (LEVEMIR) 100 UNIT/ML SYR SQ SCH ×2 (09:03→12:44)
[2021-10-22] MEDS: NICOTINE 21MG/24HR PATCH TRANSDERM SCH (09:03)
[2021-10-22] MEDS: lamoTRIgine 100 MG TAB PO SCH (09:03)
[2021-10-22] MEDS: HEPARIN SODIUM,PORCINE/PF 5,000 UNIT/0.5 ML SYRINGE SQ SCH ×2 (09:03→20:30)
[2021-10-22 12:10] LABS: Glucose,Whole Blood 345 mg/dL (75-99)
[2021-10-22 17:18] LABS: Glucose,Whole Blood 65 mg/dL (75-99)
[2021-10-22] MEDS: SULFAMETHOX-TMP 400-80MG 1 EACH TAB PO SCH (17:31)
[2021-10-22] MEDS: AMOXIC-POT CLAV 875-125MG 1 EACH TAB PO SCH (17:32)
--- NOTE | 2021-10-22 18:41 | P.PN ---
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 Patient was discharged home with home care. But before discharge she left AMA. She presents this time because of her right side to forehead hematoma was getting because over the last 4 days and 3 episodes with some of bloody discharge noted from the mass. Now there is no more discharge. No open wound but there is dressed With erythema on the top of it. Also complaining of increasing pain which is restricted currently 08/04 after she received morphine. She has some cough and white phlegm for the last 2 weeks but is not getting worse, no worsening dyspnea, no more than expected left-sided chest pain with coughing. She states she was taking her medication and insulin at home. She wants to see her PCP Susi Archuleta for her worsening hematoma symptoms as above. She is 50 nicotine a lot. She denies alcohol or illicit drugs Vitals stable, patient is afebrile. None showing leukocytosis at 23.3. Hemoglobin 10.7, platelet count elevated 858. INR 0.9, sodium 121, glucose elevated more than 650. Accu-Chek currently 407 and 421. Liver enzymes not elevated CT of the head and cervical spine,: per radiologist, cerebral atrophy. No acute intracranial abnormality. There is right frontal scalp hematoma without much change in size. There is right maxillary sinusitis. Also no acute abnormal ~cervical spine. No fracture CT of the chest, abdomen and pelvis: Mild interstitial ground glass infiltrate of the right upper lobe. Some patchy small areas interstitial infiltrates in the posterior right lung. On admission she was started on IV vancomycin and insulin and 1 dose of cefepime. Surgery team were consulted 10/20/2021 pt forehead mass is slightly better, dressing is in place pt is kept on antibiotic vancomycin and cefepime with id team following closely add colace for constipation c/w pain management 10/21/2021 Patient forehead swelling. And there was purulent discharge with significant decrease in the swelling. With culture has been sent. Repeat blood culture are pending. Hemodynamically stable and leukocytosis improving. Hemoglobin 8.4. Patient currently on IV vancomycin and cefepime 10/05/2021 Patient her right side forehead infection mass has popped up and is now available with the skin with some oozing wound and improving cellulitis. No fever and hemodynamically stable. Today patient lost her IV line several attempts were made by the staff, anesthesiology team and by me to obtain IV line and attempts were unsuccessful. PICC line was ordered but it would not be available until Sunday. Therefore her antibiotics were switched to Bactrim and Augmentin. Wound culture is growing presumptive MRSA Objective - Vital Signs Vital signs: Vital Signs Temp 98.1 F 10/21/21 21:00 Pulse 68 10/22/21 04:08 Resp 18 10/22/21 04:08 BP 115/74 10/22/21 04:08 Pulse Ox 99 10/22/21 04:08 Intake & Output 10/21/21 10/22/21 10/22/21 18:59 06:59 18:59 Intake Total 240 250 Balance 240 250 Intake: Oral 240 250 Other: Voiding Method Toilet Toilet Toilet Incontinent Incontinent Incontinent # Voids 4 3 # Bowel Movements 1 - Exam GENERAL: The patient is alert and oriented x3, not in any acute distress. Well developed, well nourished. - HEENT: Pupils are round and equally reacting to light. EOMI. No scleral icterus. No conjunctival pallor. Normocephalic, atraumatic. No pharyngeal erythema. No thyromegaly. Right forehead fluctuant hematoma about 2-3 inches in size with redness, dressed And tenderness. CARDIOVASCULAR: S1 and S2 present. No murmurs, rubs, or gallops. PULMONARY: Chest is clear to auscultation, no wheezing or crackles. ABDOMEN: Soft, nontender, nondistended, normoactive bowel sounds. No palpable organomegaly. MUSCULOSKELETAL: No joint swelling or deformity. EXTREMITIES: No cyanosis, clubbing, or pedal edema. NEUROLOGICAL: Gross neurological examination did not reveal any focal deficits. SKIN: No rashes. No petechiae - Labs CBC & Chem 7: 10/21/21 05:44 10/22/21 06:14 Labs: Abnormal Lab Results - Last 24 Hours (Table) 10/21/21 10/21/21 10/22/21 Range/Units 17:08 20:40 06:52 POC Glucose (mg/dL) 161 H 116 H 71 L (75-99) mg/dL 10/22/21 Range/Units 12:08 POC Glucose (mg/dL) 345 H (75-99) mg/dL Microbiology - Last 24 Hours (Table) 10/21/21 05:44 Blood Culture - Preliminary Blood No Growth after 24 hours 10/20/21 17:25 Gram Stain - Preliminary Head Wound Culture - Preliminary Presumptive MRSA 10/19/21 14:54 Blood Culture - Preliminary Blood No Growth after 48 hours 10/19/21 00:35 Blood Culture Gram Stain - Preliminary Blood Blood Culture - Preliminary Enterococcus faecalis Klebsiella pneumoniae Coagulase Negative Staph Assessment and Plan Assessment: Possible infected hematoma to the right side of the forehead Possible mild interstitial pneumonia, currently asymptomatic Recent history of fall 2 weeks ago with C1 transverse process fracture, Multiple traumatic left rib fractures, 3, 4, 5, 6, 8, 9 with pneumothorax Diabetes mellitus, type II, with hyperglycemia, present on admission Diabetic neuropathy Nicotine dependence History of depression, bipolar, PTSD and schizophrenia Nicotine dependence noncompliance including nonadherence to medication Substance abuse including history of marijuana and prescription drug abuse History of CVA/TIA History of GERD Hyperlipidemia History of chronic pancreatitis Plan: This is a pleasant 61 years old female who presents with hyperglycemia And infected hematoma of forehead Continue with antibiotic, currently on IV vancomycin and cefepime. Antibiotics which switched to oral Bactrim and Augmentin for low IV line, and c/w normal saline Follow-up with general surgery team Resume Levemir and NovoLog with insulin sliding scale, resume metformin Infectious disease team consult Labs and medication were reviewed.. Continue same treatment. Continue with symptomatic treatment. Resume home medication. Monitor lytes and vitals. DVT and GI prophylaxis. Further recommendations depends on the clinical course of the patient DVT prophylaxis: Subcutaneous heparin GI Prophylaxis: Pepcid
[2021-10-22 18:57] LABS: Glucose,Whole Blood 77 mg/dL (75-99)
[2021-10-22] MEDS: QUEtiapine 100 MG TAB PO SCH (20:29)
[2021-10-22] MEDS: ARIPiprazole 10 MG TAB PO SCH (20:29)
[2021-10-22] MEDS: hydrOXYzine pamoate 25 MG CAP PO PRN (20:33)
[2021-10-22 20:39] LABS: Glucose,Whole Blood 86 mg/dL (75-99)
[2021-10-23 00:43] LABS: Glucose,Whole Blood 54 mg/dL (75-99)
[2021-10-23 01:21] LABS: Glucose,Whole Blood 67 mg/dL (75-99)
[2021-10-23 01:34] LABS: Glucose,Whole Blood 72 mg/dL (75-99)
[2021-10-23 03:38] LABS: Glucose,Whole Blood 71 mg/dL (75-99)
[2021-10-23] MEDS: SODIUM CHLORIDE 0.9% 1,000 ML IV SCH ×2 (04:33→17:36)
[2021-10-23 04:34] LABS: Glucose,Whole Blood 111 mg/dL (75-99)
[2021-10-23] MEDS: AMOXIC-POT CLAV 875-125MG 1 EACH TAB PO SCH ×2 (04:34→15:59)
[2021-10-23] MEDS: SULFAMETHOX-TMP 400-80MG 1 EACH TAB PO SCH ×2 (04:34→16:00)
[2021-10-23] MEDS ORDERED: VANCOMYCIN TROUGH DUE 1 EACH MISC MISCELLANE ONE (05:00)
[2021-10-23 06:13] LABS: Glucose,Whole Blood 72 mg/dL (75-99)
[2021-10-23 07:13] LABS: African American GFR (CKD) >90 (>60 ml/min/1.73 sqM); Non-African American GFR(CKD) >90 (>60 ml/min/1.73 sqM)
[2021-10-23 07:16] LABS: Glucose,Whole Blood 158 mg/dL (75-99)
[2021-10-23] MEDS: INSULIN DETEMIR (LEVEMIR) 100 UNIT/ML SYR SQ SCH ×2 (07:45→20:39)
[2021-10-23] MEDS: INSULIN ASPART (NovoLOG) 100 UNIT/ML VIAL SQ SCH ×8 (08:12→20:46)
[2021-10-23] MEDS: FAMOTIDINE 20 MG TAB PO SCH ×2 (08:13→20:46)
[2021-10-23] MEDS: lamoTRIgine 100 MG TAB PO SCH (08:13)
[2021-10-23] MEDS: HEPARIN SODIUM,PORCINE/PF 5,000 UNIT/0.5 ML SYRINGE SQ SCH ×2 (08:13→20:38)
[2021-10-23] MEDS: LIPASE 5,000/PROTEASE 17,000/AMYLASE 24,000 PO SCH ×3 (08:14→17:37)
[2021-10-23] MEDS: NICOTINE 21MG/24HR PATCH TRANSDERM SCH (08:14)
[2021-10-23] MEDS: metFORMIN 850 MG TAB PO SCH ×3 (08:14→14:47)
[2021-10-23] MEDS: HYDROcodone/APAP 5-325MG 1 EACH TAB PO PRN ×3 (09:02→23:25)
[2021-10-23] MEDS: hydrOXYzine pamoate 25 MG CAP PO PRN (09:08)
[2021-10-23 10:59] LABS: Glucose,Whole Blood 85 mg/dL (75-99)
--- NOTE | 2021-10-23 12:54 | P.PN ---
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 Patient was discharged home with home care. But before discharge she left AMA. She presents this time because of her right side to forehead hematoma was getting because over the last 4 days and 3 episodes with some of bloody discharge noted from the mass. Now there is no more discharge. No open wound but there is dressed With erythema on the top of it. Also complaining of increasing pain which is restricted currently 08/04 after she received morphine. She has some cough and white phlegm for the last 2 weeks but is not getting worse, no worsening dyspnea, no more than expected left-sided chest pain with coughing. She states she was taking her medication and insulin at home. She wants to see her PCP Susi Archuleta for her worsening hematoma symptoms as above. She is 50 nicotine a lot. She denies alcohol or illicit drugs Vitals stable, patient is afebrile. None showing leukocytosis at 23.3. Hemoglobin 10.7, platelet count elevated 858. INR 0.9, sodium 121, glucose elevated more than 650. Accu-Chek currently 407 and 421. Liver enzymes not elevated CT of the head and cervical spine,: per radiologist, cerebral atrophy. No acute intracranial abnormality. There is right frontal scalp hematoma without much change in size. There is right maxillary sinusitis. Also no acute abnormal ~cervical spine. No fracture CT of the chest, abdomen and pelvis: Mild interstitial ground glass infiltrate of the right upper lobe. Some patchy small areas interstitial infiltrates in the posterior right lung. On admission she was started on IV vancomycin and insulin and 1 dose of cefepime. Surgery team were consulted 10/20/2021 pt forehead mass is slightly better, dressing is in place pt is kept on antibiotic vancomycin and cefepime with id team following closely add colace for constipation c/w pain management 10/21/2021 Patient forehead swelling. And there was purulent discharge with significant decrease in the swelling. With culture has been sent. Repeat blood culture are pending. Hemodynamically stable and leukocytosis improving. Hemoglobin 8.4. Patient currently on IV vancomycin and cefepime 10/22/2021 Patient her right side forehead infection mass has popped up and is now available with the skin with some oozing wound and improving cellulitis. No fever and hemodynamically stable. Today patient lost her IV line several attempts were made by the staff, anesthesiology team and by me to obtain IV line and attempts were unsuccessful. PICC line was ordered but it would not be available until Sunday. Therefore her antibiotics were switched to Bactrim and Augmentin. Wound culture is growing presumptive MRSA 10/23/2021 Patient right forehead hematoma is improving which is ruptured now. Dressing is in place with less purulent discharge. Patient supposed to be on IV vancomycin cefepime but no IV line is yesterday and currently she kept on Bactrim and Augmentin. ID team of the case. Her hemoglobin A1c is 13.3. She refusing her metformin and daily Levemir but she agrees to Levemir 40 units at bedtime which is lower the dose today because of fluctuating glucose. Importance of a dentist of therapy explained for the patient. Objective - Vital Signs Vital signs: Vital Signs Temp 97.4 F L 10/23/21 04:19 Pulse 82 10/23/21 04:19 Resp 18 10/23/21 04:19 BP 119/74 10/23/21 04:19 Pulse Ox 100 10/23/21 04:19 Intake & Output 10/22/21 10/23/21 10/23/21 18:59 06:59 18:59 Intake Total 400 Balance 400 Intake: Oral 400 Other: Voiding Method Toilet Toilet Incontinent Incontinent # Voids 6 - Exam GENERAL: The patient is alert and oriented x3, not in any acute distress. Well developed, well nourished. - HEENT: Pupils are round and equally reacting to light. EOMI. No scleral icterus. No conjunctival pallor. Normocephalic, atraumatic. No pharyngeal erythema. No thyromegaly. Right forehead fluctuant hematoma about 2-3 inches in size with redness, dressed And tenderness. CARDIOVASCULAR: S1 and S2 present. No murmurs, rubs, or gallops. PULMONARY: Chest is clear to auscultation, no wheezing or crackles. ABDOMEN: Soft, nontender, nondistended, normoactive bowel sounds. No palpable organomegaly. MUSCULOSKELETAL: No joint swelling or deformity. EXTREMITIES: No cyanosis, clubbing, or pedal edema. NEUROLOGICAL: Gross neurological examination did not reveal any focal deficits. SKIN: No rashes. No petechiae - Labs CBC & Chem 7: 10/21/21 05:44 10/23/21 06:30 Labs: Abnormal Lab Results - Last 24 Hours (Table) 10/22/21 10/22/21 10/23/21 Range/Units 12:08 17:16 00:36 POC Glucose (mg/dL) 345 H 65 L 54 L (75-99) mg/dL 10/23/21 10/23/21 10/23/21 Range/Units 01:02 01:24 03:36 POC Glucose (mg/dL) 67 L 72 L 71 L (75-99) mg/dL 10/23/21 10/23/21 10/23/21 Range/Units 04:23 06:09 07:08 POC Glucose (mg/dL) 111 H 72 L 158 H (75-99) mg/dL Microbiology - Last 24 Hours (Table) 10/21/21 05:44 Blood Culture - Preliminary Blood No Growth after 48 hours 10/20/21 17:25 Anaerobic Culture - Preliminary Head 10/20/21 17:25 Gram Stain - Final Head Wound Culture - Final Methicillin resist S. aureus 10/19/21 14:54 Blood Culture - Preliminary Blood No Growth after 72 hours 10/19/21 00:35 Blood Culture Gram Stain - Final Blood Blood Culture - Final Enterococcus faecalis Klebsiella pneumoniae Coagulase Negative Staph Assessment and Plan Assessment: Possible infected hematoma to the right side of the forehead Possible mild interstitial pneumonia, currently asymptomatic Recent history of fall 2 weeks ago with C1 transverse process fracture, Multiple traumatic left rib fractures, 3, 4, 5, 6, 8, 9 with pneumothorax Diabetes mellitus, type II, with hyperglycemia, present on admission Diabetic neuropathy Nicotine dependence History of depression, bipolar, PTSD and schizophrenia Nicotine dependence noncompliance including nonadherence to medication Substance abuse including history of marijuana and prescription drug abuse History of CVA/TIA History of GERD Hyperlipidemia History of chronic pancreatitis Plan: This is a pleasant 61 years old female who presents with hyperglycemia And infected hematoma of forehead Continue with antibiotic, currently on IV vancomycin and cefepime. Antibiotics which switched to oral Bactrim and Augmentin for low IV line, and c/w normal saline Follow-up with general surgery team Resume Levemir and NovoLog with insulin sliding scale, resume metformin . Patient refusing to take her metformin and we change her Levemir dose 50 units down to 40 minutes and NovoLog 20 units down to 10 units with meals. Infectious disease team consult Labs and medication were reviewed.. Continue same treatment. Continue with symptomatic treatment. Resume home medication. Monitor lytes and vitals. DVT and GI prophylaxis. Further recommendations depends on the clinical course of the patient DVT prophylaxis: Subcutaneous heparin GI Prophylaxis: Pepcid
[2021-10-23 14:42] LABS: Glucose,Whole Blood 231 mg/dL (75-99)
[2021-10-23 17:12] LABS: Glucose,Whole Blood 68 mg/dL (75-99)
[2021-10-23 17:36] LABS: Glucose,Whole Blood 84 mg/dL (75-99)
[2021-10-23 20:27] LABS: Glucose,Whole Blood 218 mg/dL (75-99)
[2021-10-23] MEDS: ARIPiprazole 10 MG TAB PO SCH (20:46)
[2021-10-23] MEDS: QUEtiapine 100 MG TAB PO SCH (20:46)
--- NOTE | 2021-10-23 23:58 | P.PN ---
Subjective Progress Note Date: 10/22/21 Principal diagnosis: forehead possible infected hematoma and bacteremia Patient is a 61-year-old female presented to the hospital for weakness for in this patient did have a hematoma to the right side of the forehead patient noticed to have evidence of bacteremia. On today's evaluation that is 10/22/2021, the patient continues to be afebrile, patient forehead area swelling and pain has decreased in intensity, the patient denies chest pain shortness of breath or cough no abdominal pain or diarrhea Objective - Vital Signs Vital signs: Vital Signs Temp 98.1 F 10/21/21 21:00 Pulse 68 10/22/21 04:08 Resp 18 10/22/21 04:08 BP 115/74 10/22/21 04:08 Pulse Ox 99 10/22/21 04:08 Intake & Output 10/21/21 10/22/21 10/22/21 18:59 06:59 18:59 Intake Total 240 250 Balance 240 250 Intake: Oral 240 250 Other: Voiding Method Toilet Toilet Toilet Incontinent Incontinent Incontinent # Voids 4 3 # Bowel Movements 1 - Exam GENERAL DESCRIPTION: Middle-aged female lying in bed in no distress. HEENT: The forehead swelling has slightly decreased RESPIRATORY SYSTEM: Unlabored breathing , decreased breath sounds at bases HEART: S1 S2 regular rate and rhythm , ABDOMEN: Soft , no tenderness EXTREMITIES: No edema feet - Labs CBC & Chem 7: 10/21/21 05:44 10/23/21 06:30 Labs: Abnormal Lab Results - Last 24 Hours (Table) 10/21/21 10/21/21 10/22/21 Range/Units 17:08 20:40 06:52 POC Glucose (mg/dL) 161 H 116 H 71 L (75-99) mg/dL 10/22/21 Range/Units 12:08 POC Glucose (mg/dL) 345 H (75-99) mg/dL Microbiology - Last 24 Hours (Table) 10/19/21 00:35 Blood Culture Gram Stain - Final Blood Blood Culture - Final Enterococcus faecalis Klebsiella pneumoniae Coagulase Negative Staph 10/21/21 05:44 Blood Culture - Preliminary Blood No Growth after 24 hours 10/20/21 17:25 Gram Stain - Preliminary Head Wound Culture - Preliminary Presumptive MRSA 10/19/21 14:54 Blood Culture - Preliminary Blood No Growth after 48 hours Assessment and Plan (1) Infected hematoma Current Visit: Yes Status: Acute Code(s): T14.8XXA - OTHER INJURY OF UNSPECIFIED BODY REGION, INITIAL ENCOUNTER; L08.9 - LOCAL INFECTION OF THE SKIN AND SUBCUTANEOUS TISSUE, UNSP SNOMED Code(s): 057205086 Plan: 1patient presented to hospital with increasing weakness increasing pain to the forehead area of hematoma with some drainage in this patient did have no evidence of bacteremia showing both gram-positive as well as gram-negative in this patient did have significant elevated white count patient did have extensive work-up with a CT of the chest abdominal pelvis no evidence of any abscess or colitis. 2blood cultures has been repeated and this has been negative so far 3patient did have some spontaneous drainage and cultures has been obtained which are currently growing MRSA. 4patient has lost IV access, multiple attempts has been unsuccessful per the nursing staff we will switch her over to Augmentin and Bactrim DS Time with Patient: Less than 30
--- NOTE | 2021-10-24 | P.PN ---
Subjective Progress Note Date: 10/23/21 Principal diagnosis: forehead possible infected hematoma and bacteremia Patient is a 61-year-old female presented to the hospital for weakness for in this patient did have a hematoma to the right side of the forehead patient noticed to have evidence of bacteremia. On today's evaluation that is 10/23/2021, the patient denies any fever or chills, patient forehead area swelling and pain has decreased in intensity, the patient denies chest pain shortness of breath or cough no abdominal pain or diarrhea, patient overall feeling better wants to go home Objective - Vital Signs Vital signs: Vital Signs Temp 97.5 F L 10/23/21 11:34 Pulse 77 10/23/21 11:34 Resp 16 10/23/21 11:34 BP 99/63 10/23/21 11:34 Pulse Ox 98 10/23/21 11:34 Intake & Output 10/22/21 10/23/21 10/23/21 18:59 06:59 18:59 Intake Total 400 Balance 400 Intake: Oral 400 Other: Voiding Method Toilet Toilet Incontinent Incontinent # Voids 6 - Exam GENERAL DESCRIPTION: Middle-aged female lying in bed in no distress. HEENT: The forehead swelling has slightly decreased RESPIRATORY SYSTEM: Unlabored breathing , decreased breath sounds at bases HEART: S1 S2 regular rate and rhythm , ABDOMEN: Soft , no tenderness EXTREMITIES: No edema feet - Labs CBC & Chem 7: 10/21/21 05:44 10/23/21 06:30 Labs: Abnormal Lab Results - Last 24 Hours (Table) 10/22/21 10/23/21 10/23/21 Range/Units 17:16 00:36 01:02 POC Glucose (mg/dL) 65 L 54 L 67 L (75-99) mg/dL 10/23/21 10/23/21 10/23/21 Range/Units 01:24 03:36 04:23 POC Glucose (mg/dL) 72 L 71 L 111 H (75-99) mg/dL 10/23/21 10/23/21 10/23/21 Range/Units 06:09 07:08 14:40 POC Glucose (mg/dL) 72 L 158 H 231 H (75-99) mg/dL Microbiology - Last 24 Hours (Table) 10/21/21 05:44 Blood Culture - Preliminary Blood No Growth after 48 hours 10/20/21 17:25 Anaerobic Culture - Preliminary Head 10/20/21 17:25 Gram Stain - Final Head Wound Culture - Final Methicillin resist S. aureus 10/19/21 14:54 Blood Culture - Preliminary Blood No Growth after 72 hours 10/19/21 00:35 Blood Culture Gram Stain - Final Blood Blood Culture - Final Enterococcus faecalis Klebsiella pneumoniae Coagulase Negative Staph Assessment and Plan (1) Infected hematoma Current Visit: Yes Status: Acute Code(s): T14.8XXA - OTHER INJURY OF UNSPECIFIED BODY REGION, INITIAL ENCOUNTER; L08.9 - LOCAL INFECTION OF THE SKIN AND SUBCUTANEOUS TISSUE, UNSP SNOMED Code(s): 730226388 Plan: 1patient presented to hospital with increasing weakness increasing pain to the forehead area of hematoma with some drainage in this patient did have no evidence of bacteremia showing both gram-positive as well as gram-negative in this patient did have significant elevated white count patient did have extensive work-up with a CT of the chest abdominal pelvis no evidence of any abscess or colitis. 2blood cultures has been repeated and this has been negative so far, initial blood cultures with 3 different pathogens possible contamination as no obvious focus of infection and the forehead area of infected hematoma and did not do those pathogen that was seen in the blood 3patient did have some spontaneous drainage and cultures has been obtained which are currently growing MRSA. 4patient has lost IV access, multiple attempts has been unsuccessful per the nursing staff, patient is currently being treated with Augmentin and Bactrim DS to continue and monitor clinical course closely Time with Patient: Less than 30
[2021-10-24 00:09] LABS: Glucose,Whole Blood 221 mg/dL (75-99)
[2021-10-24] MEDS: SULFAMETHOX-TMP 400-80MG 1 EACH TAB PO SCH (04:09)
[2021-10-24] MEDS: AMOXIC-POT CLAV 875-125MG 1 EACH TAB PO SCH ×2 (04:09→17:48)
[2021-10-24] MEDS: HYDROcodone/APAP 5-325MG 1 EACH TAB PO PRN ×3 (05:34→18:23)
[2021-10-24 07:11] LABS: Glucose,Whole Blood 277 mg/dL (75-99)
[2021-10-24] MEDS: HEPARIN SODIUM,PORCINE/PF 5,000 UNIT/0.5 ML SYRINGE SQ SCH ×2 (07:44→20:03)
[2021-10-24] MEDS: metFORMIN 850 MG TAB PO SCH ×2 (07:44→20:04)
[2021-10-24] MEDS: NICOTINE 21MG/24HR PATCH TRANSDERM SCH (07:44)
[2021-10-24] MEDS: SODIUM CHLORIDE 0.9% 1,000 ML IV SCH ×2 (07:50→20:42)
[2021-10-24] MEDS: lamoTRIgine 100 MG TAB PO SCH (07:51)
[2021-10-24] MEDS: LIPASE 5,000/PROTEASE 17,000/AMYLASE 24,000 PO SCH ×3 (07:52→17:49)
[2021-10-24] MEDS: FAMOTIDINE 20 MG TAB PO SCH ×2 (07:52→20:02)
[2021-10-24] MEDS: INSULIN ASPART (NovoLOG) 100 UNIT/ML VIAL SQ SCH ×7 (07:52→20:03)
[2021-10-24 09:15] LABS: HCT 29.1 % (37.2-46.3); HGB 8.7 g/dL (12.0-15.0); MCH 27.9 pg (27.0-32.0); MCHC 29.9 g/dL (32.0-37.0); MCV 93.3 fL (80.0-97.0); NRBC Per 100 WBC 0.2 /100 WBCS (0.0-0.0); Platelet Count 892 X 10*3/uL (140-440); RBC 3.12 X 10*6/uL (4.10-5.20); RDW 13.6 % (11.5-14.5); WBC 12.17 X 10*3/uL (4.50-10.00)
[2021-10-24 09:46] LABS: African American GFR (CKD) 103.8 (60.0-200.0); BUN/Creat Ratio 24.38 Ratio (12.00-20.00); Blood Urea Nitrogen 17.8 mg/dL (9.0-27.0); Calcium 8.8 mg/dL (8.7-10.3); Carbon Dioxide 25.6 mmol/L (20.0-27.5)
[2021-10-24 09:52] LABS: Non-African American GFR(CKD) 89.5 (60.0-200.0)
[2021-10-24 10:43] LABS: Glucose,Whole Blood 74 mg/dL (75-99)
[2021-10-24 11:39] LABS: Glucose,Whole Blood 83 mg/dL (75-99)
[2021-10-24 11:49] LABS: Basophils # (M) 0.12 X 10*3/uL (0.00-0.10); Eosinophils # (M) 0.24 X 10*3/uL (0.04-0.35); Lymphocytes # (M) 5.96 X 10*3/uL (0.90-5.00); Metamyelocytes % 1 % (0-0); Monocytes # (M) 0.61 X 10*3/uL (0.20-1.00); Neutrophils # (M) 5.11 X 10*3/uL (2.00-8.90); Neutrophils % (M) 42 %
[2021-10-24] MEDS ORDERED: SODIUM ZIRCONIUM CYCLOSILICATE 10 GM PACKET PO ONE (12:00)
[2021-10-24] MEDS: hydrOXYzine pamoate 25 MG CAP PO PRN (12:36)
[2021-10-24 16:22] LABS: Potassium 6.3 mmol/L (3.5-5.5)
[2021-10-24 16:59] LABS: Glucose,Whole Blood 429 mg/dL (75-99)
[2021-10-24 19:39] LABS: Glucose,Whole Blood 125 mg/dL (75-99)
[2021-10-24] MEDS: QUEtiapine 100 MG TAB PO SCH (20:02)
[2021-10-24] MEDS: DOXYCYCLINE 100 MG CAP PO SCH (20:02)
[2021-10-24] MEDS: INSULIN DETEMIR (LEVEMIR) 100 UNIT/ML SYR SQ SCH (20:04)
[2021-10-24] MEDS: ARIPiprazole 10 MG TAB PO SCH (20:43)
--- NOTE | 2021-10-24 23:31 | P.PN ---
Subjective Progress Note Date: 10/24/21 Principal diagnosis: forehead possible infected hematoma and bacteremia Patient is a 61-year-old female presented to the hospital for weakness for in this patient did have a hematoma to the right side of the forehead patient noticed to have evidence of bacteremia. On today's evaluation that is 10/24/2021, the patient remains to be afebrile, the patient forehead area swelling and pain has decreased in intensity, the patient denies chest pain shortness of breath or cough no abdominal pain or diarrhea, Objective - Vital Signs Vital signs: Vital Signs Temp 97.6 F 10/24/21 11:33 Pulse 80 10/24/21 11:33 Resp 18 10/24/21 11:33 BP 112/71 10/24/21 11:33 Pulse Ox 99 10/24/21 11:33 Intake & Output 10/23/21 10/24/21 10/24/21 18:59 06:59 18:59 Intake Total 600 Balance 600 Intake: Oral 600 Other: Voiding Method Toilet Toilet Diaper Incontinent # Voids 4 - Exam GENERAL DESCRIPTION: Middle-aged female lying in bed in no distress. HEENT: The forehead swelling has slightly decreased RESPIRATORY SYSTEM: Unlabored breathing , decreased breath sounds at bases HEART: S1 S2 regular rate and rhythm , ABDOMEN: Soft , no tenderness EXTREMITIES: No edema feet - Labs CBC & Chem 7: 10/24/21 05:19 10/24/21 05:19 Labs: Abnormal Lab Results - Last 24 Hours (Table) 10/23/21 10/23/21 10/23/21 Range/Units 14:40 17:04 20:26 WBC (4.50-10.00) X 10*3/uL RBC (4.10-5.20) X 10*6/uL Hgb (12.0-15.0) g/dL Hct (37.2-46.3) % MCHC (32.0-37.0) g/dL Plt Count (140-440) X 10*3/uL Plt Count Comment Absolute Nucleated RBC (0.00-0.00) X 10*3/uL Metamyelocytes % (0-0) % Lymphocytes # (Manual) (0.90-5.00) X 10*3/uL Basophils # (Manual) (0.00-0.10) X 10*3/uL NRBC/100 WBC Diff (0.0-0.0) /100 WBCS Sodium (135-145) mmol/L Potassium (3.5-5.5) mmol/L Chloride (96-109) mmol/L Anion Gap (10.00-18.00) mmol/L BUN/Creatinine Ratio (12.00-20.00) Ratio Glucose (70-110) mg/dL POC Glucose (mg/dL) 231 H 68 L 218 H (75-99) mg/dL 10/24/21 10/24/21 10/24/21 Range/Units 00:07 05:19 05:19 WBC 12.17 H (4.50-10.00) X 10*3/uL RBC 3.12 L (4.10-5.20) X 10*6/uL Hgb 8.7 L (12.0-15.0) g/dL Hct 29.1 L (37.2-46.3) % MCHC 29.9 L (32.0-37.0) g/dL Plt Count 892 H (140-440) X 10*3/uL Plt Count Comment INCREASED A Absolute Nucleated RBC 0.02 H (0.00-0.00) X 10*3/uL Metamyelocytes % 1 H (0-0) % Lymphocytes # (Manual) 5.96 H (0.90-5.00) X 10*3/uL Basophils # (Manual) 0.12 H (0.00-0.10) X 10*3/uL NRBC/100 WBC Diff 0.2 H (0.0-0.0) /100 WBCS Sodium 128 L (135-145) mmol/L Potassium 6.3 H* (3.5-5.5) mmol/L Chloride 94 L (96-109) mmol/L Anion Gap 9.00 L (10.00-18.00) mmol/L BUN/Creatinine Ratio 24.38 H (12.00-20.00) Ratio Glucose 295 H (70-110) mg/dL POC Glucose (mg/dL) 221 H (75-99) mg/dL 10/24/21 10/24/21 Range/Units 07:07 10:40 WBC (4.50-10.00) X 10*3/uL RBC (4.10-5.20) X 10*6/uL Hgb (12.0-15.0) g/dL Hct (37.2-46.3) % MCHC (32.0-37.0) g/dL Plt Count (140-440) X 10*3/uL Plt Count Comment Absolute Nucleated RBC (0.00-0.00) X 10*3/uL Metamyelocytes % (0-0) % Lymphocytes # (Manual) (0.90-5.00) X 10*3/uL Basophils # (Manual) (0.00-0.10) X 10*3/uL NRBC/100 WBC Diff (0.0-0.0) /100 WBCS Sodium (135-145) mmol/L Potassium (3.5-5.5) mmol/L Chloride (96-109) mmol/L Anion Gap (10.00-18.00) mmol/L BUN/Creatinine Ratio (12.00-20.00) Ratio Glucose (70-110) mg/dL POC Glucose (mg/dL) 277 H 74 L (75-99) mg/dL Microbiology - Last 24 Hours (Table) 10/21/21 05:44 Blood Culture - Preliminary Blood No Growth after 72 hours 10/19/21 14:54 Blood Culture - Preliminary Blood No Growth after 96 hours Assessment and Plan (1) Infected hematoma Current Visit: Yes Status: Acute Code(s): T14.8XXA - OTHER INJURY OF UN SPECIFIED BODY REGION, INITIAL ENCOUNTER; L08.9 - LOCAL INFECTION OF THE SKIN AND SUBCUTANEOUS TISSUE, UNSP SNOMED Code(s): 820193750 Plan: 1patient presented to hospital with increasing weakness increasing pain to the forehead area of hematoma with some drainage in this patient did have no evidence of bacteremia showing both gram-positive as well as gram-negative in this patient did have significant elevated white count patient did have extensive work-up with a CT of the chest abdominal pelvis no evidence of any abscess or colitis. 2blood cultures has been repeated and this has been negative so far, initial blood cultures with 3 different pathogens possible contamination as no obvious focus of infection and the forehead area of infected hematoma and did not do those pathogen that was seen in the blood 3patient did have some spontaneous drainage and cultures has been obtained which are currently growing MRSA. 4patient has lost IV access, multiple attempts has been unsuccessful per the nursing staff, patient also seemed to have problem with the elevated potassium hence we'll discontinue Bactrim DS and plan on doxycycline 100 mg twice a day for 10 days on discharge, discussed with the nurse practitioner for medical team
[2021-10-25] MEDS: hydrOXYzine pamoate 25 MG CAP PO PRN ×2 (00:16→13:01)
[2021-10-25] MEDS: HYDROcodone/APAP 5-325MG 1 EACH TAB PO PRN ×3 (00:16→11:56)
--- NOTE | 2021-10-25 01:35 | P.PN ---
Subjective Progress Note Date: 10/24/21 This is a pleasant 61 years old female with past medical history of type 2 diabetes mellitus,CVA/TIA, GERD/Reflux, Hyperlipidemia, , Chronic pancreatitis,,merle neuropathy,throat CA at age 6,chronic bronchitis, Anxiety, Bipolar, Depression, PTSD, Schizophrenia, Current every day smoker, Marijuana, Prescription Drug Abuse She was recently discharged from the hospital 10/05-10/08 after a fall downstairs with C1 transverse process fracture, Multiple traumatic left rib fractures, 3, 4, 5, 6, 8, 9 with pneumothorax, Flail chest. Patient was discharged home with home care. But before discharge she left AMA. She presents this time because of her right side to forehead hematoma was getting because over the last 4 days and 3 episodes with some of bloody discharge noted from the mass. Now there is no more discharge. No open wound but there is dressed With erythema on the top of it. Also complaining of increasing pain which is restricted currently 2/10 after she received morphine. She has some cough and white phlegm for the last 2 weeks but is not getting worse, no worsening dyspnea, no more than expected left-sided chest pain with coughing. She states she was taking her medication and insulin at home. She wants to see her PCP Susi Archuleta for her worsening hematoma symptoms as above. She is 50 nicotine a lot. She denies alcohol or illicit drugs Vitals stable, patient is afebrile. None showing leukocytosis at 23.3. Hemoglobin 10.7, platelet count elevated 858. INR 0.9, sodium 121, glucose elevated more than 650. Accu-Chek currently 407 and 421. Liver enzymes not elevated CT of the head and cervical spine,: per radiologist, cerebral atrophy. No acute intracranial abnormality. There is right frontal scalp hematoma without much change in size. There is right maxillary sinusitis. Also no acute abnormal ~cervical spine. No fracture CT of the chest, abdomen and pelvis: Mild interstitial ground glass infiltrate of the right upper lobe. Some patchy small areas interstitial infiltrates in the posterior right lung. On admission she was started on IV vancomycin and insulin and 1 dose of cefepime. Surgery team were consulted 10/20/2021 pt forehead mass is slightly better, dressing is in place pt is kept on antibiotic vancomycin and cefepime with id team following closely add colace for constipation c/w pain management 10/21/2021 Patient forehead swelling. And there was purulent discharge with significant decrease in the swelling. With culture has been sent. Repeat blood culture are pending. Hemodynamically stable and leukocytosis improving. Hemoglobin 8.4. Patient currently on IV vancomycin and cefepime 10/22/2021 Patient her right side forehead infection mass has popped up and is now available with the skin with some oozing wound and improving cellulitis. No fever and hemodynamically stable. Today patient lost her IV line several attempts were made by the staff, anesthesiology team and by me to obtain IV line and attempts were unsuccessful. PICC line was ordered but it would not be available until Sunday. Therefore her antibiotics were switched to Bactrim and Augmentin. Wound culture is growing presumptive MRSA 10/23/2021 Patient right forehead hematoma is improving which is ruptured now. Dressing is in place with less purulent discharge. Patient supposed to be on IV vancomycin cefepime but no IV line is yesterday and currently she kept on Bactrim and Augmentin. ID team of the case. Her hemoglobin A1c is 13.3. She refusing her metformin and daily Levemir but she agrees to Levemir 40 units at bedtime which is lower the dose today because of fluctuating glucose. Importance of a dentist of therapy explained for the patient. 10/24/2021 Patient is seen this morning with ID following closely for MRSA growing in the forehead wound. Repeat blood cultures have been negative. Patient has no IV access and refusing any further IV at this time. Patient is maintained on oral bactrim and augmentin and noted to have marked elevation in the potassium of 6 and also becoming more hyponatremic with concern for bactrim being the cause and will transition to oral doxycycline and discuss with ID. Patient is afebrile and denies any chest pain or shortness of breath. Patient is maintained on sliding scale, pre-meal and long acting and recommend to continue with accuchecks achs. Patient has been having elevated blood sugars. Patient is requesting to go home. Will give lokelma and repeat labs in am. Review of systems: Constitutional: No reports of fatigue, fever, or chills Cardiovascular: No reports of chest pain or palpitations Respiratory: No reports of shortness of breath or cough GI: No reports of nausea, vomiting, or diarrhea : No reports of dysuria or retention Neurovascular: No reports of weakness or numbness All medications have been reviewed Active Medications Hydrocodone Bitart/Acetaminophen (Hydrocodone/Apap 5-325mg 1 Each Tab) 1 each PO Q6HR PRN PRN Reason: Pain Last Admin: 10/24/21 12:36 Dose: 1 each Documented by: Amoxicillin/Clavulanate Potassium (Amoxic-Pot Clav 875-125mg 1 Each Tab) 1 each PO Q12H [facility]; Protocol Last Admin: 10/24/21 04:09 Dose: 1 each Documented by: Lipase/Protease/Amylase (Lipase 5,000/Protease 17,000/Amylase 24,000) 8 each PO AC-TID [facility] Last Admin: 10/24/21 11:52 Dose: 8 each Documented by: Aripiprazole (Aripiprazole 10 Mg Tab) [address] [facility] Last Admin: 10/23/21 20:46 Dose: 10 mg Documented by: Doxycycline Monohydrate (Doxycycline 100 Mg Cap) 100 mg PO BID [facility]; Protocol Famotidine (Famotidine 20 Mg Tab) 20 mg PO BID [facility] Last Admin: 10/24/21 07:52 Dose: 20 mg Documented by: Heparin Sodium (Porcine) (Heparin Sodium,Porcine/Pf 5,000 Unit/0.5 Ml Syringe) 5,000 unit SQ Q12HR [facility] Last Admin: 10/24/21 07:44 Dose: Not Given Documented by: Hydroxyzine Pamoate (Hydroxyzine Pamoate 25 Mg Cap) 25 mg PO BID PRN PRN Reason: Anxiety Last Admin: 10/24/21 12:36 Dose: 25 mg Documented by: Sodium Chloride (Saline 0.9%) 1,000 mls @ 75 mls/hr IV .[id number] [facility] Last Admin: 10/24/21 07:50 Dose: Not Given Documented by: Insulin Aspart (Insulin Aspart (Novolog) 100 Unit/Ml Vial) 0 unit SQ ACHS [facility]; Protocol Last Admin: 10/24/21 11:49 Dose: Not Given Documented by: Insulin Aspart (Insulin Aspart (Novolog) 100 Unit/Ml Vial) 10 unit SQ AC-TID [facility] Last Admin: 10/24/21 11:52 Dose: Not Given Documented by: Insulin Detemir (Insulin Detemir (Levemir) 100 Unit/Ml Syr) [address] [facility] Last Admin: 10/23/21 20:39 Dose: Not Given Documented by: Lamotrigine (Lamotrigine 100 Mg Tab) 200 mg PO DAILY [facility] Last Admin: 10/24/21 07:51 Dose: 200 mg Documented by: Metformin HCl (Metformin 850 Mg Tab) 850 mg PO BID [facility] Last Admin: 10/24/21 07:44 Dose: Not Given Documented by: Naloxone HCl (Naloxone 0.4 Mg/Ml 1 Ml Vial) 0.2 mg IV Q2M PRN PRN Reason: Opioid Reversal Naproxen (Naproxen 250 Mg Tab) 250 mg PO BID PRN PRN Reason: Pain Last Admin: 10/21/21 17:23 Dose: 250 mg Documented by: Nicotine (Nicotine 21mg/24hr Patch) 1 patch TRANSDERM DAILY [facility] Last Admin: 10/24/21 07:44 Dose: Not Given Documented by: Quetiapine Fumarate (Quetiapine 100 Mg Tab) [address] [facility] Last Admin: 10/23/21 20:46 Dose: 100 mg Documented by: Senna (Sennosides 8.6 Mg Tab) 8.6 mg PO BID PRN PRN Reason: Constipation Last Admin: 10/20/21 12:39 Dose: 8.6 mg Documented by: Physical exam: GENERAL: The patient is alert and oriented x3, not in any acute distress. Well developed, well nourished. HEENT: Pupils are round and equally reacting to light. EOMI. No scleral icterus. No conjunctival pallor. Normocephalic, atraumatic. No pharyngeal erythema. No thyromegaly. Right forehead fluctuant hematoma about 2-3 inches in size with minimal redness, swelling gone down currently wrapped and dressed And improved tenderness. CARDIOVASCULAR: S1 and S2 present. No murmurs, rubs, or gallops. PULMONARY: Chest is clear to auscultation, no wheezing or crackles. ABDOMEN: Soft, nontender, nondistended, normoactive bowel sounds. No palpable organomegaly. MUSCULOSKELETAL: No joint swelling or deformity. EXTREMITIES: No cyanosis, clubbing, or pedal edema. NEUROLOGICAL: Gross neurological examination did not reveal any focal deficits. SKIN: No rashes. No petechiae Assessment: Possible infected hematoma to the right side of the forehead, wound culture growing MRSA hyponatremia, possibly secondary to Bactrim hyperkalemia Possible mild interstitial pneumonia, currently asymptomatic Recent history of fall 2 weeks ago with C1 transverse process fracture, Multiple traumatic left rib fractures, 3, 4, 5, 6, 8, 9 with pneumothorax Diabetes mellitus, type II, uncontrolled with hyperglycemia Diabetic neuropathy Nicotine dependence History of depression, bipolar, PTSD and schizophrenia Nicotine dependence noncompliance including nonadherence to medication Substance abuse including history of marijuana and prescription drug abuse History of CVA/TIA History of GERD Hyperlipidemia History of chronic pancreatitis DVT prophylaxis: Subcutaneous heparin GI Prophylaxis: Pepcid Full code Plan: This is a pleasant 61 years old female who presents with hyperglycemia and infected hematoma of forehead Continue with antibiotic, currently on oral bactrim and augmentin with ID following and will transition to doxycycline and discontinue the bactrim. Hyperkalemia of 6 today and will give lokelma and repeat labs Continue Levemir and NovoLog with insulin sliding scale, continues to have epi sodes of hyperglycemia hyponatremia, encouraged oral intake and will repeat am labs Discussed with ID and will continue with oral abx on discharge. Patient is refusing a mid or PICC line for IV abx. Possible discharge in 24 hours. The impression and plan of care has been dictated by Racheal Barr, Nurse Practitioner as directed. Dr. Yvrose MD I have performed a history and examination and MDM of this patient, discussed the same with the dictator, and agree with the dictator's assessment and plan as written ,documented as a scribe. Based on total visit time, I have performed more than 50% of the visit. Objective - Vital Signs Vital signs: Vital Signs Temp 98.0 F 10/24/21 04:16 Pulse 87 10/24/21 04:16 Resp 18 10/24/21 04:16 BP 117/68 10/24/21 04:16 Pulse Ox 98 10/24/21 04:16 Intake & Output 10/23/21 10/24/21 10/24/21 18:59 06:59 18:59 Intake Total 600 Balance 600 Intake: Oral 600 Other: Voiding Method Toilet Toilet Diaper Incontinent # Voids 4 - Labs CBC & Chem 7: 10/24/21 05:19 10/24/21 05:19 Labs: Abnormal Lab Results - Last 24 Hours (Table) 10/23/21 10/23/21 10/23/21 Range/Units 14:40 17:04 20:26 WBC (4.50-10.00) X 10*3/uL RBC (4.10-5.20) X 10*6/uL Hgb (12.0-15.0) g/dL Hct (37.2-46.3) % MCHC (32.0-37.0) g/dL Plt Count (140-440) X 10*3/uL Absolute Nucleated RBC (0.00-0.00) X 10*3/uL NRBC/100 WBC Diff (0.0-0.0) /100 WBCS POC Glucose (mg/dL) 231 H 68 L 218 H (75-99) mg/dL 10/24/21 10/24/21 10/24/21 Range/Units 00:07 05:19 07:07 WBC 12.17 H (4.50-10.00) X 10*3/uL RBC 3.12 L (4.10-5.20) X 10*6/uL Hgb 8.7 L (12.0-15.0) g/dL Hct 29.1 L (37.2-46.3) % MCHC 29.9 L (32.0-37.0) g/dL Plt Count 892 H (140-440) X 10*3/uL Absolute Nucleated RBC 0.02 H (0.00-0.00) X 10*3/uL NRBC/100 WBC Diff 0.2 H (0.0-0.0) /100 WBCS POC Glucose (mg/dL) 221 H 277 H (75-99) mg/dL Microbiology - Last 24 Hours (Table) 10/21/21 05:44 Blood Culture - Preliminary Blood No Growth after 72 hours 10/19/21 14:54 Blood Culture - Preliminary Blood No Growth after 96 hours
[2021-10-25] MEDS: AMOXIC-POT CLAV 875-125MG 1 EACH TAB PO SCH (05:45)
[2021-10-25 07:28] LABS: Glucose,Whole Blood 355 mg/dL (75-99)
[2021-10-25] MEDS: lamoTRIgine 100 MG TAB PO SCH (08:41)
[2021-10-25] MEDS: FAMOTIDINE 20 MG TAB PO SCH (08:41)
[2021-10-25] MEDS: INSULIN ASPART (NovoLOG) 100 UNIT/ML VIAL SQ SCH ×4 (08:42→13:01)
[2021-10-25] MEDS: LIPASE 5,000/PROTEASE 17,000/AMYLASE 24,000 PO SCH ×2 (08:44→11:58)
[2021-10-25] MEDS: HEPARIN SODIUM,PORCINE/PF 5,000 UNIT/0.5 ML SYRINGE SQ SCH (08:45)
[2021-10-25] MEDS: metFORMIN 850 MG TAB PO SCH (08:45)
[2021-10-25] MEDS: DOXYCYCLINE 100 MG CAP PO SCH (08:45)
[2021-10-25] MEDS: NICOTINE 21MG/24HR PATCH TRANSDERM SCH (08:46)
[2021-10-25] MEDS: SODIUM CHLORIDE 0.9% 1,000 ML IV SCH (08:46)
[2021-10-25 09:03] LABS: African American GFR (CKD) >90 (>60 ml/min/1.73 sqM); Anion Gap 5 mmol/L; Blood Urea Nitrogen 20 mg/dL (7-17); Calcium 8.8 mg/dL (8.4-10.2); Carbon Dioxide 29 mmol/L (22-30); Chloride 96 mmol/L (98-107); Glucose 299 mg/dL (74-99); Non-African American GFR(CKD) 82 (>60 ml/min/1.73 sqM); Potassium 5.9 mmol/L (3.5-5.1); Sodium 130 mmol/L (137-145)
[2021-10-25] MEDS ORDERED: SODIUM ZIRCONIUM CYCLOSILICATE 10 GM PACKET PO ONE (09:19)
[2021-10-25 11:33] LABS: Glucose,Whole Blood 77 mg/dL (75-99)
[2021-10-25 11:52] VITALS: BP 126/79; PULSE 75; RESP 16; TEMP 97.9
--- NOTE | 2021-10-26 19:30 | P.DS ---
Providers Date of admission: 10/19/21 01:36 Expected date of discharge: 10/25/21 Attending physician: Lisa Pinedo MD Consults: 10/19/21 08:39 Consult Physician Urgent Consulting Provider: Isaac Howard Consult Reason/Comments: infected hematoma Do you want consulting provider notified?: Yes Primary care physician: Cecilia Cortez Hospital Course: final diagnosis Possible infected hematoma to the right side of the forehead, wound culture growing MRSA hyponatremia, possibly secondary to Bactrim hyperkalemia Possible mild interstitial pneumonia, currently asymptomatic Recent history of fall 2 weeks ago with C1 transverse process fracture, Multiple traumatic left rib fractures, 3, 4, 5, 6, 8, 9 with pneumothorax Diabetes mellitus, type II, uncontrolled with hyperglycemia Diabetic neuropathy Nicotine dependence History of depression, bipolar, PTSD and schizophrenia Nicotine dependence noncompliance including nonadherence to medication Substance abuse including history of marijuana and prescription drug abuse History of CVA/TIA History of GERD Hyperlipidemia History of chronic pancreatitis DVT prophylaxis GI Prophylaxis Full code Discharge disposition Patient is being discharged in a stable condition with guarded prognosis to home. Patient will follow-up with Dr. Cortez in the outpatient setting upon discharge. Patient is to continue with oral augmentin and doxycycline for the next 10 days and close outpatient follow up with Dr. Howard infectious disease. Patient is to also have labs drawn in 2-3 days to monitor electrolytes for hyponatremia. Total time taken is greater than 35 minutes. Hospital course This is a 61-year-old female who was recently admitted with possible infection of the right forehead hematoma and was maintained on IV antibiotics with ID following. Patient switched to oral augmentin and doxycycline and will continue BID for the next 10 days and ID follow up in the outpatient setting. Patient also with hyponatremia and elevated potassium. Patient given lokelma x2 and given prescription for labs in 2-3 days. Patient encouraged low potassium diet with consistent carb. Patient to test sugars achs and keep a diary of readings to bring to follow up appointments. Patients blood sugars are poorly controlled and also instructed patient to follow up with pcp and endocrine outpatient. Patient to obtain possible guardian in the outpatient setting with [facility]. Patient is adamant about going home. Currently no reports of chest pain, shortness of breath, or palpitations. Patient is afebrile. No reports of nausea or vomiting and patient is tolerating diet. Patient will be discharged home today. Guarded prognosis as patient has history of noncompliance and multiple hospitalizations. Physical exam: Gen: This is a 61 year old female alert and oriented x3. thin built, frail. HEENT: Head is atraumatic, normocephalic. Pupils equal, round. Sclerae is anicteric. NECK: Supple. No JVD. No lymphadenopathy. No thyromegaly. LUNGS: Clear to auscultation. No wheezes or rhonchi. No intercostal retractions. HEART: Regular rate and rhythm. No murmur. ABDOMEN: Soft. Bowel sounds are present. No masses. No tenderness. EXTREMITIES: No pedal edema. No calf tenderness. NEUROLOGICAL: Patient is awake, alert and oriented x3. Cranial nerves 2 through 12 are grossly intact. skin: right forehead hematoma with scabbing and crusting noted and decreased redness and drainage noted. Please refer to medication reconciliation sheet for a list of medications. The impression and plan of care has been dictated by Racheal Barr, Nurse Practitioner as directed. Dr. Yvrose MD I have performed a history and examination and MDM of this patient, discussed the same with the dictator, and agree with the dictator's assessment and plan as written ,documented as a scribe. Based on total visit time, I have performed more than 50% of the visit. Patient Condition at Discharge: Stable Plan - Discharge Summary Discharge Rx Participant: No New Discharge Prescriptions: New Amoxic-Pot Clav 875-125Mg [Augmentin 875-125] 1 each PO Q12H 10 Days #20 tab HYDROcodone/APAP 5-325MG [[place] 5-325] 1 each PO Q6HR PRN #6 tab PRN Reason: Pain Doxycycline [Vibramycin] 100 mg PO BID 10 Days #20 cap INSULIN ASPART (NovoLOG) [NovoLOG (formulary)] 0 unit SQ ACHS ml Continue Omeprazole 20 mg PO DAILY traMADol HCL 50 mg PO BID PRN PRN Reason: Pain metFORMIN HCL [Glucophage] 850 mg PO BID #60 tab lamoTRIgine 200 mg PO DAILY 30 Days #30 tab QUEtiapine [SEROquel] 100 mg PO HS #30 tab ARIPiprazole [Abilify] 10 mg PO HS #30 tab hydrOXYzine pamoate [hydrOXYzine PAMOATE] 25 mg PO BID PRN #30 cap PRN Reason: Anxiety Wbftga-Jssrrawm-Cqhszey [Zenpep 10] 4 cap PO AC-TID #120 cap Changed INSULIN LISPRO (HumaLOG) [humaLOG] 10 units SQ AC-TID 30 Days #5 each Insulin Glargine [Lantus Vial] 40 unit SQ HS 30 Days #5 each Discharge Medication List Omeprazole 20 mg PO DAILY 04/05/18 [History] traMADol HCL 50 mg PO BID PRN 10/18/21 [History] ARIPiprazole [Abilify] 10 mg PO HS #30 tab 10/25/21 [Rx] Amoxic-Pot Clav 875-125Mg [Augmentin 875-125] 1 each PO Q12H 10 Days #20 tab 10/25/21 [Rx] Doxycycline [Vibramycin] 100 mg PO BID 10 Days #20 cap 10/25/21 [Rx] HYDROcodone/APAP 5-325MG [[place] 5-325] 1 each PO Q6HR PRN #6 tab 10/25/21 [Rx] INSULIN ASPART (NovoLOG) [NovoLOG (formulary)] 0 unit SQ ACHS ml 10/25/21 [Rx] INSULIN LISPRO (HumaLOG) [humaLOG] 10 units SQ AC-TID 30 Days #5 each 10/25/21 [Rx] Insulin Glargine [Lantus Vial] 40 unit SQ HS 30 Days #5 each 10/25/21 [Rx] Mtthpd-Ovhhzskd-Vrjkfdd [Zenpep 10] 4 cap PO AC-TID #120 cap 10/25/21 [Rx] QUEtiapine [SEROquel] 100 mg PO HS #30 tab 10/25/21 [Rx] hydrOXYzine pamoate [hydrOXYzine PAMOATE] 25 mg PO BID PRN #30 cap 10/25/21 [Rx] lamoTRIgine 200 mg PO DAILY 30 Days #30 tab 10/25/21 [Rx] metFORMIN HCL [Glucophage] 850 mg PO BID #60 tab 10/25/21 [Rx] Follow up Appointment(s)/Referral(s): Cecilia Cortez MD [Primary Care Provider] - 11/09/21 11:00 am Isaac Howard MD [STAFF PHYSICIAN] - 11/08/21 1:30 pm Ambulatory/Diagnostic Orders: Complete Blood Count w/diff [LAB.AMB] Time Frame: 3 Days, Location: None Selected Patient Instructions/Handouts: Doxycycline (By mouth), Hydrocodone/Acetaminophen (By mouth), Amoxicillin/Clavulanate Potassium (By mouth), MRSA (Methicillin-Resistant Staphylococcus Aureus) (DC), Rib Fracture (DC), Fall Prevention (DC), Type 2 Diabetes Management for Adults (DC) Activity/Diet/Wound Care/Special Instructions: [facility] will continue to assist you with medication administration same as [phone] activity Limited until follow-up Follow-up with primary care provider on discharge Follow-up with infectious disease outpatient in one week Continue taking medications as prescribed Continue monitoring blood sugars before meals and at bedtime and keep a diary for primary care follow-up NovoLog sliding scale 0-150 equals 0 units 151-200 equals 2 units 201-250 equals 4 units 251-300 equals 6 units 301-350 equals 8 units 351-400 equals 10 units Please notify provider if blood sugar is 400 or above Continue consistent carb diet, low potassium diet recommend repeat labs of CBC and BMP in 2-3 days script for Glucometer faxed to [facility] DME Discharge Disposition: HOME SELF-CARE
--- NOTE | 2021-11-01 23:15 | P.PN ---
Subjective Progress Note Date: 10/25/21 Principal diagnosis: forehead possible infected hematoma and bacteremia Patient is a 61-year-old female presented to the hospital for weakness for in this patient did have a hematoma to the right side of the forehead patient noticed to have evidence of bacteremia. On today's evaluation that is 10/25/2021, the patient denies any fever or chills, the patient forehead area swelling and pain has decreased in intensity, the patient denies chest pain shortness of breath or cough no abdominal pain or diarrhea, patient is feeling better and wants to go Home Objective - Vital Signs Vital signs: Vital Signs Temp 97.5 F L 10/25/21 04:16 Pulse 83 10/25/21 04:16 Resp 18 10/25/21 04:16 BP 111/73 10/25/21 04:16 Pulse Ox 98 10/25/21 04:16 Intake & Output 10/24/21 10/25/21 10/25/21 18:59 06:59 18:59 Intake Total 720 Balance 720 Weight 45.359 kg Intake: Oral 720 Other: Voiding Method Toilet Toilet Diaper Diaper Incontinent Incontinent # Voids 4 2 - Exam GENERAL DESCRIPTION: Middle-aged female lying in bed in no distress. HEENT: The forehead swelling has slightly decreased RESPIRATORY SYSTEM: Unlabored breathing , decreased breath sounds at bases HEART: S1 S2 regular rate and rhythm , ABDOMEN: Soft , no tenderness EXTREMITIES: No edema feet - Labs CBC & Chem 7: 10/24/21 05:19 10/25/21 07:40 Labs: Abnormal Lab Results - Last 24 Hours (Table) 10/24/21 10/24/21 10/24/21 Range/Units 05:19 05: 16:52 Plt Count Comment INCREASED A Metamyelocytes % 1 H (0-0) % Lymphocytes # (Manual) 5.96 H (0.90-5.00) X 10*3/uL Basophils # (Manual) 0.12 H (0.00-0.10) X 10*3/uL Sodium (137-145) mmol/L Potassium 6.3 H* (3.5-5.5) mmol/L Chloride (98-107) mmol/L BUN (7-17) mg/dL Glucose (74-99) mg/dL POC Glucose (mg/dL) 429 H (75-99) mg/dL 10/24/21 10/25/21 10/25/21 Range/Units 19:38 07:17 07:40 Plt Count Comment Metamyelocytes % (0-0) % Lymphocytes # (Manual) (0.90-5.00) X 10*3/uL Basophils # (Manual) (0.00-0.10) X 10*3/uL Sodium 130 L (137-145) mmol/L Potassium 5.9 H (3.5-5.5) mmol/L Chloride 96 L (98-107) mmol/L BUN 20 H (7-17) mg/dL Glucose 299 H (74-99) mg/dL POC Glucose (mg/dL) 125 H 355 H (75-99) mg/dL Microbiology - Last 24 Hours (Table) 10/21/21 05:44 Blood Culture - Preliminary Blood No Growth after 96 hours 10/19/21 14:54 Blood Culture - Preliminary Blood No Growth after 120 hours 10/20/21 17:25 Anaerobic Culture - Final Head Assessment and Plan (1) Infected hematoma Status: Acute Code(s): T14.8XXA - OTHER INJURY OF UNSPECIFIED BODY REGION, INITIAL ENCOUNTER; L08.9 - LOCAL INFECTION OF THE SKIN AND SUBCUTANEOUS TISSUE, UNSP SNOMED Code(s): 316761769 Plan: 1patient presented to hospital with increasing weakness increasing pain to the forehead area of hematoma with some drainage in this patient did have no evidence of bacteremia showing both gram-positive as well as gram-negative in this patient did have significant elevated white count patient did have extensive work-up with a CT of the chest abdominal pelvis no evidence of any abscess or colitis. 2blood cultures has been repeated and this has been negative so far, initial blood cultures with 3 different pathogens possible contamination as no obvious focus of infection and the forehead area of infected hematoma and did not do those pathogen that was seen in the blood 3patient did have some spontaneous drainage and cultures has been obtained which are currently growing MRSA. 4patient to continue with doxycycline 100 mg twice a day for 10 days on discharge, and close outpatient follow-up Time with Patient: Less than 30
== END 2021-10-25 16:30 | disposition home or self-care (01) ==
LOC: EC 16:11 → INTOOBSV 10-19 01:36 → 5NMEDONC 10-19 01:36 → UNDODISIN 10-25 16:30
PROVIDERS: ADMIT Internal Medicine; ATTEND Internal Medicine
DX: L03.211 Cellulitis of face (principal); E87.1 Hypo-osmolality and hyponatremia; K86.1 Other chronic pancreatitis; J84.9 Interstitial pulmonary disease, unspecified; B95.62 Methicillin resistant Staphylococcus aureus infection as the cause of diseases classified elsewhere; S00.03XD Contusion of scalp, subsequent encounter; S12.000D Unspecified displaced fracture of first cervical vertebra, subsequent encounter for fracture with routine healing; S22.5XXD Flail chest, subsequent encounter for fracture with routine healing; E78.5 Hyperlipidemia, unspecified; E87.5 Hyperkalemia; Z20.822 Contact with and (suspected) exposure to COVID-19; E11.65 Type 2 diabetes mellitus with hyperglycemia; E11.40 Type 2 diabetes mellitus with diabetic neuropathy, unspecified; J42 Unspecified chronic bronchitis; J32.0 Chronic maxillary sinusitis; K59.00 Constipation, unspecified; K21.9 Gastro-esophageal reflux disease without esophagitis; F12.10 Cannabis abuse, uncomplicated; F17.200 Nicotine dependence, unspecified, uncomplicated; N28.9 Disorder of kidney and ureter, unspecified; F43.10 Post-traumatic stress disorder, unspecified; F20.9 Schizophrenia, unspecified; F31.9 Bipolar disorder, unspecified; Z79.899 Other long term (current) drug therapy; Z79.4 Long term (current) use of insulin; Z91.81 History of falling; Z91.14 Patient's other noncompliance with medication regimen; Z87.01 Personal history of pneumonia (recurrent); Z85.819 Personal history of malignant neoplasm of unspecified site of lip, oral cavity, and pharynx; Z86.14 Personal history of Methicillin resistant Staphylococcus aureus infection; Z86.73 Personal history of transient ischemic attack (TIA), and cerebral infarction without residual deficits; Z86.010 Personal history of colon polyps; Z87.440 Personal history of urinary (tract) infections; Z82.49 Family history of ischemic heart disease and other diseases of the circulatory system; Z83.79 Family history of other diseases of the digestive system
CPT/HCPCS: 99285; 96376 ×3; 96361; 96366 ×4; 96365; 96367; 96375; 36415; 97161; 97530; 97165; 80053; 80048 ×4; 82565 ×2; 83735 ×3; 84484; 85025 ×3; 85027; 80202 ×2; 85610; 85730; 81001; 87040 ×2; 87070; 87205; 87075; 87077 ×2; 87186 ×2; 83036; 84145; 87635; 72125; 70450; 71260; 74177; G0378 ×7; J3370 ×4; J2270; J0692 ×5; Q9967; J1644 ×2

== ENCOUNTER 2021-10-31 14:38 | Emergency (ER) | payer OTHER ==
[2021-10-31 15:20] VITALS: BP 130/81; PULSE 100; RESP 16; TEMP 98
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
== END 2021-10-31 22:35 | disposition home or self-care (01) ==
LOC: EC 14:38 → EEVIPCON 14:38 → EC 22:35
DX: F31.9 Bipolar disorder, unspecified (principal); R45.851 Suicidal ideations; E11.40 Type 2 diabetes mellitus with diabetic neuropathy, unspecified; E78.5 Hyperlipidemia, unspecified; K21.9 Gastro-esophageal reflux disease without esophagitis; F41.9 Anxiety disorder, unspecified; F20.9 Schizophrenia, unspecified; F17.200 Nicotine dependence, unspecified, uncomplicated; Z79.4 Long term (current) use of insulin; Z79.84 Long term (current) use of oral hypoglycemic drugs; Z79.899 Other long term (current) drug therapy
CPT/HCPCS: 82075; 99283

== ENCOUNTER 2021-11-15 13:01 | Emergency (ER) | payer OTHER ==
[2021-11-15 13:44] LABS: Glucose,Whole Blood >600 mg/dL (75-99)
--- NOTE | 2021-11-15 13:59 | ED ---
Psych HPI - General Source: patient, RN notes reviewed Mode of arrival: ambulatory - History of Present Illness MD Complaint: suicidal ideation, feels depressed <Sonu Muse - Last Filed: 11/15/21 21:08> <Ryan Hale - Last Filed: 11/15/21 21:28> - General Chief Complaint: Psychiatric Symptoms Stated Complaint: EPS eval Time Seen by Provider: 11/15/21 13:48 - History of Present Illness Initial Comments: 7-year-old female history of multiple medical problems including diabetes who presents with 2 months of suicidal thoughts and ideation she states she would cut her wrists that she could she's been smoking methamphetamine for the past 7 months she also been taking other drugs. She states part of the reasons her living situation. She is a smoker she has chronic cough she denies any fevers chills nausea vomiting or sweats. (Sonu Muse) - Related Data Home Medications Medication Instructions Recorded Confirmed Omeprazole 20 mg PO DAILY 04/05/18 11/15/21 traMADol HCL 50 mg PO BID PRN 10/18/21 11/15/21 HYDROcodone/APAP 5-325MG [[place] 1 tab PO Q6HR PRN 10/31/21 11/15/21 5-325] Previous Rx's Medication Instructions Recorded ARIPiprazole [Abilify] 10 mg PO HS #30 tab 10/25/21 INSULIN LISPRO (HumaLOG) [humaLOG] 10 units SQ AC-TID 30 Days #5 each 10/25/21 Insulin Glargine [Lantus Vial] 40 unit SQ HS 30 Days #5 each 10/25/21 Kpfpie-Eobjuhtf-Avqqili [Zenpep 10] 4 cap PO AC-TID #120 cap 10/25/21 QUEtiapine [SEROquel] 100 mg PO HS #30 tab 10/25/21 hydrOXYzine pamoate [hydrOXYzine 25 mg PO BID PRN #30 cap 10/25/21 PAMOATE] lamoTRIgine 200 mg PO DAILY 30 Days #30 tab 10/25/21 metFORMIN HCL [Glucophage] 850 mg PO BID #60 tab 10/25/21 Allergies Allergy/AdvReac Type Severity Reaction Status Date / Time No Known Allergies Allergy Verified 11/15/21 13:45 Review of Systems ROS Other: All systems not noted in ROS Statement are negative. <Sonu Muse - Last Filed: 11/15/21 21:08> ROS Other: All systems not noted in ROS Statement are negative. <Ryan Hale - Last Filed: 11/15/21 21:28> ROS Statement: Those systems with pertinent positive or pertinent negative responses have been documented in the HPI. Past Medical History Past Medical History: Cancer, CVA/TIA, Diabetes Mellitus, GERD/Reflux, Hyperlipidemia, Renal Disease Additional Past Medical History / Comment(s): Chronic pancreatitis,wt loss of 60-70 pounds over last year, HEART MURMUR AND ENLARGED AORTA, tia's, colon polyps-benign, "blood pressure tends to run low ended up in ICU" pt states recent UTI treated,merle neuropathy,throat CA at age 6,chronic bronchitis recent fall with left rib fractures, hematoma to right forehead History of Any Multi-Drug Resistant Organisms: MRSA Date of last positivie culture/infection: 10/20/21 MDRO Source:: Head Past Surgical History: Appendectomy Additional Past Surgical History / Comment(s): CYST REMOVED FROM NECK. RT 3RD/4TH FINGER PARTIAL AMP D/T INJURY, lt ureter stent. COLONOSCOPY/POLYPECTOMY Past Anesthesia/Blood Transfusion Reactions: Motion Sickness, Postoperative Nausea & Vomiting (PONV) Past Psychological History: Anxiety, Bipolar, Depression, PTSD, Schizophrenia Smoking Status: Current every day smoker Past Alcohol Use History: None Reported Past Drug Use History: Methamphetamine, Prescription Drug Abuse - Past Family History Father Family Medical History: Liver Disease Additional Family Medical History / Comment(s): Father at age 78 from cirrhosis of the liver. Mother Family Medical History: No Reported History Additional Family Medical History / Comment(s): Mother is alive in her 80s Sister(s) Family Medical History: Coronary Artery Disease (CAD) Additional Family Medical History / Comment(s): Patient has 2 sisters and one has from an overdose. She has 1 brother with no major medical problems. 4cm aortic aneurysm <Sonu Muse - Last Filed: 11/15/21 21:08> General Exam Limitations: no limitations General appearance: alert, in no apparent distress Head exam: Present: atraumatic, normocephalic, normal inspection Eye exam: Present: normal appearance, PERRL, EOMI. Absent: scleral icterus, conjunctival injection, periorbital swelling ENT exam: Present: mucous membranes dry Neck exam: Present: normal inspection, full ROM, other (No stridor JVD or bruits). Absent: tenderness, meningismus, lymphadenopathy Respiratory exam: Present: normal lung sounds bilaterally. Absent: respiratory distress, wheezes, rales, rhonchi, stridor Cardiovascular Exam: Present: normal rhythm, tachycardia, normal heart sounds. Absent: systolic murmur, diastolic murmur, rubs, gallop, clicks GI/Abdominal exam: Present: soft, normal bowel sounds. Absent: distended, tenderness, guarding, rebound, rigid Extremities exam: Present: normal inspection, full ROM, normal capillary refill. Absent: tenderness, pedal edema, joint swelling, calf tenderness Back exam: Present: normal inspection Neurological exam: Present: alert, oriented X3, CN II-XII intact Psychiatric exam: Present: normal affect, normal mood Skin exam: Present: warm, dry, intact, normal color. Absent: rash <Sonu Muse - Last Filed: 11/15/21 21:08> - General Exam Comments Initial Comments: This is a well-developed frail appearing female who is awake alert oriented 3 (Sonu Muse) Course <Sonu Muse - Last Filed: 11/15/21 21:08> Vital Signs 11/15/21 11/15/21 11/15/21 13:40 14:08 19:57 Temperature 98.1 F 98.0 F 97.9 F Pulse Rate 102 H 109 H 93 Respiratory 18 14 14 Rate Blood Pressure 135/86 124/85 115/75 O2 Sat by Pulse 97 98 98 Oximetry - Reevaluation(s) Reevaluation #1: 11/15/21 20:22 The patient rested comfortably throughout the time in emergency department gl ucose has improved with IV fluids lactic acid elevation is secondary to dehydration. No infectious process identified (Sonu Muse) Reevaluation #2: 11/15/21 21:08 The patient is pending EPS evaluation the case is endorsed to Dr. Hale at our shift change (Sonu Muse) Medical Decision Making - Lab Data Result diagrams: 11/15/21 14:19 11/15/21 14:19 <Sonu Muse - Last Filed: 11/15/21 21:08> - Lab Data Result diagrams: 11/15/21 14:19 11/15/21 14:19 <Ryan Hale - Last Filed: 11/15/21 21:28> - Lab Data Lab Results 11/15/21 11/15/21 11/15/21 Range/Units 13:42 14:06 14:19 WBC 10.5 (3.8-10.6) k/uL RBC 4.12 (3.80-5.40) m/uL Hgb 12.1 (11.4-16.0) gm/dL Hct 38.4 (34.0-46.0) % MCV 93.2 (80.0-100.0) fL MCH 29.4 (25.0-35.0) pg MCHC 31.5 (31.0-37.0) g/dL RDW 14.8 (11.5-15.5) % Plt Count 475 H (150-450) k/uL MPV 7.5 Neutrophils % 63 % Lymphocytes % 31 % Monocytes % 3 % Eosinophils % 1 % Basophils % 1 % Neutrophils # 6.6 (1.3-7.7) k/uL Lymphocytes # 3.2 (1.0-4.8) k/uL Monocytes # 0.3 (0-1.0) k/uL Eosinophils # 0.1 (0-0.7) k/uL Basophils # 0.1 (0-0.2) k/uL Hypochromasia Slight Sodium (137-145) mmol/L Potassium (3.5-5.1) mmol/L Chloride (98-107) mmol/L Carbon Dioxide (22-30) mmol/L Anion Gap mmol/L BUN (7-17) mg/dL Creatinine (0.52-1.04) mg/dL Est GFR (CKD-EPI)AfAm (>60 ml/min/1.73 sqM) Est GFR (CKD-EPI)NonAf (>60 ml/min/1.73 sqM) Glucose (74-99) mg/dL POC Glucose (mg/dL) >600 H (75-99) mg/dL POC Glu Biologics Specialist ID Gonzalo De Leon Lactic Ac Sepsis Rflx Plasma Lactic Acid Timi (0.7-2.0) mmol/L Calcium (8.4-10.2) mg/dL Magnesium (1.6-2.3) mg/dL Total Bilirubin (0.2-1.3) mg/dL AST (14-36) U/L ALT (4-34) U/L Alkaline Phosphatase (38-126) U/L Creatine Kinase (30-135) U/L Total Protein (6.3-8.2) g/dL Albumin (3.5-5.0) g/dL Lipase (23-300) U/L Salicylates mg/dL Urine Opiates Screen Not Detected (NotDetected) Ur Oxycodone Screen Not Detected (NotDetected) Urine Methadone Screen Not Detected (NotDetected) Ur Propoxyphene Screen Not Detected (NotDetected) Acetaminophen ug/mL Ur Barbiturates Screen Not Detected (NotDetected) U Tricyclic Antidepress Not Detected (NotDetected) Ur Phencyclidine Scrn Not Detected (NotDetected) Ur Amphetamines Screen Not Detected (NotDetected) U Methamphetamines Scrn Not Detected (NotDetected) U Benzodiazepines Scrn Not Detected (NotDetected) Urine Cocaine Screen Not Detected (NotDetected) U Marijuana (THC) Screen Not Detected (NotDetected) Serum Alcohol mg/dL Acetone, Qual (Negative) 11/15/21 11/15/21 11/15/21 Range/Units 14:19 14:19 15:18 WBC (3.8-10.6) k/uL RBC (3.80-5.40) m/uL Hgb (11.4-16.0) gm/dL Hct (34.0-46.0) % MCV (80.0-100.0) fL MCH (25.0-35.0) pg MCHC (31.0-37.0) g/dL RDW (11.5-15.5) % Plt Count (150-450) k/uL MPV Neutrophils % % Lymphocytes % % Monocytes % % Eosinophils % % Basophils % % Neutrophils # (1.3-7.7) k/uL Lymphocytes # (1.0-4.8) k/uL Monocytes # (0-1.0) k/uL Eosinophils # (0-0.7) k/uL Basophils # (0-0.2) k/uL Hypochromasia Sodium 136 L (137-145) mmol/L Potassium 4.5 (3.5-5.1) mmol/L Chloride 101 (98-107) mmol/L Carbon Dioxide 22 (22-30) mmol/L Anion Gap 13 mmol/L BUN 16 (7-17) mg/dL Creatinine 0.68 (0.52-1.04) mg/dL Est GFR (CKD-EPI)AfAm >90 (>60 ml/min/1.73 sqM) Est GFR (CKD-EPI)NonAf >90 (>60 ml/min/1.73 sqM) Glucose 483 H (74-99) mg/dL POC Glucose (mg/dL) (75-99) mg/dL POC Glu Biologics Specialist ID Lactic Ac Sepsis Rflx Y Plasma Lactic Acid Timi 2.5 H* (0.7-2.0) mmol/L Calcium 9.9 (8.4-10.2) mg/dL Magnesium 1.6 (1.6-2.3) mg/dL Total Bilirubin 0.2 (0.2-1.3) mg/dL AST 36 (14-36) U/L ALT 28 (4-34) U/L Alkaline Phosphatase 130 H (38-126) U/L Creatine Kinase 37 (30-135) U/L Total Protein 7.7 (6.3-8.2) g/dL Albumin 4.6 (3.5-5.0) g/dL Lipase 15 L (23-300) U/L Salicylates <1.0 mg/dL Urine Opiates Screen (NotDetected) Ur Oxycodone Screen (NotDetected) Urine Methadone Screen (NotDetected) Ur Propoxyphene Screen (NotDetected) Acetaminophen <10.0 ug/mL Ur Barbiturates Screen (NotDetected) U Tricyclic Antidepress (NotDetected) Ur Phencyclidine Scrn (NotDetected) Ur Amphetamines Screen (NotDetected) U Methamphetamines Scrn (NotDetected) U Benzodiazepines Scrn (NotDetected) Urine Cocaine Screen (NotDetected) U Marijuana (THC) Screen (NotDetected) Serum Alcohol <10 mg/dL Acetone, Qual Negative (Negative) 11/15/21 11/15/21 11/15/21 Range/Units 15:21 15:21 16:50 WBC (3.8-10.6) k/uL RBC (3.80-5.40) m/uL Hgb (11.4-16.0) gm/dL Hct (34.0-46.0) % MCV (80.0-100.0) fL MCH (25.0-35.0) pg MCHC (31.0-37.0) g/dL RDW (11.5-15.5) % Plt Count (150-450) k/uL MPV Neutrophils % % Lymphocytes % % Monocytes % % Eosinophils % % Basophils % % Neutrophils # (1.3-7.7) k/uL Lymphocytes # (1.0-4.8) k/uL Monocytes # (0-1.0) k/uL Eosinophils # (0-0.7) k/uL Basophils # (0-0.2) k/uL Hypochromasia Sodium (137-145) mmol/L Potassium (3.5-5.1) mmol/L Chloride (98-107) mmol/L Carbon Dioxide (22-30) mmol/L Anion Gap mmol/L BUN (7-17) mg/dL Creatinine (0.52-1.04) mg/dL Est GFR (CKD-EPI)AfAm (>60 ml/min/1.73 sqM) Est GFR (CKD-EPI)NonAf (>60 ml/min/1.73 sqM) Glucose (74-99) mg/dL POC Glucose (mg/dL) 317 H 317 H 190 H (75-99) mg/dL POC Glu Biologics Specialist Shavon Tamayo, Shavon Cordero Lactic Ac Sepsis Rflx Plasma Lactic Acid Timi (0.7-2.0) mmol/L Calcium (8.4-10.2) mg/dL Magnesium (1.6-2.3) mg/dL Total Bilirubin (0.2-1.3) mg/dL AST (14-36) U/L ALT (4-34) U/L Alkaline Phosphatase (38-126) U/L Creatine Kinase (30-135) U/L Total Protein (6.3-8.2) g/dL Albumin (3.5-5.0) g/dL Lipase (23-300) U/L Salicylates mg/dL Urine Opiates Screen (NotDetected) Ur Oxycodone Screen (NotDetected) Urine Methadone Screen (NotDetected) Ur Propoxyphene Screen (NotDetected) Acetaminophen ug/mL Ur Barbiturates Screen (NotDetected) U Tricyclic Antidepress (NotDetected) Ur Phencyclidine Scrn (NotDetected) Ur Amphetamines Screen (NotDetected) U Methamphetamines Scrn (NotDetected) U Benzodiazepines Scrn (NotDetected) Urine Cocaine Screen (NotDetected) U Marijuana (THC) Screen (NotDetected) Serum Alcohol mg/dL Acetone, Qual (Negative) 11/15/21 Range/Units 17:29 WBC (3.8-10.6) k/uL RBC (3.80-5.40) m/uL Hgb (11.4-16.0) gm/dL Hct (34.0-46.0) % MCV (80.0-100.0) fL MCH (25.0-35.0) pg MCHC (31.0-37.0) g/dL RDW (11.5-15.5) % Plt Count (150-450) k/uL MPV Neutrophils % % Lymphocytes % % Monocytes % % Eosinophils % % Basophils % % Neutrophils # (1.3-7.7) k/uL Lymphocytes # (1.0-4.8) k/uL Monocytes # (0-1.0) k/uL Eosinophils # (0-0.7) k/uL Basophils # (0-0.2) k/uL Hypochromasia Sodium (137-145) mmol/L Potassium (3.5-5.1) mmol/L Chloride (98-107) mmol/L Carbon Dioxide (22-30) mmol/L Anion Gap mmol/L BUN (7-17) mg/dL Creatinine (0.52-1.04) mg/dL Est GFR (CKD-EPI)AfAm (>60 ml/min/1.73 sqM) Est GFR (CKD-EPI)NonAf (>60 ml/min/1.73 sqM) Glucose (74-99) mg/dL POC Glucose (mg/dL) (75-99) mg/dL POC Glu Biologics Specialist ID Lactic Ac Sepsis Rflx Plasma Lactic Acid Timi 1.8 (0.7-2.0) mmol/L Calcium (8.4-10.2) mg/dL Magnesium (1.6-2.3) mg/dL Total Bilirubin (0.2-1.3) mg/dL AST (14-36) U/L ALT (4-34) U/L Alkaline Phosphatase (38-126) U/L Creatine Kinase (30-135) U/L Total Protein (6.3-8.2) g/dL Albumin (3.5-5.0) g/dL Lipase (23-300) U/L Salicylates mg/dL Urine Opiates Screen (NotDetected) Ur Oxycodone Screen (NotDetected) Urine Methadone Screen (NotDetected) Ur Propoxyphene Screen (NotDetected) Acetaminophen ug/mL Ur Barbiturates Screen (NotDetected) U Tricyclic Antidepress (NotDetected) Ur Phencyclidine Scrn (NotDetected) Ur Amphetamines Screen (NotDetected) U Methamphetamines Scrn (NotDetected) U Benzodiazepines Scrn (NotDetected) Urine Cocaine Screen (NotDetected) U Marijuana (THC) Screen (NotDetected) Serum Alcohol mg/dL Acetone, Qual (Negative) Disposition <Sonu Muse - Last Filed: 11/15/21 21:08> Is patient prescribed a controlled substance at d/c from ED?: No <Ryan Hale - Last Filed: 11/15/21 21:28> Clinical Impression: Mood disorder, Hyperglycemia due to diabetes mellitus Disposition: HOME SELF-CARE Condition: Good Instructions (If sedation given, give patient instructions): Mood Disorders (ED) Referrals: Cecilia Cortez MD [Primary Care Provider] - 1-2 days
[2021-11-15 14:10] VITALS: RESP 14
[2021-11-15 14:34] LABS: Amphetamine Screen,Urine Not Detected (NotDetected); Barbiturate Screen,Urine Not Detected (NotDetected); Benzodiazepines Screen,Urine Not Detected (NotDetected); Cocaine Screen,Urine Not Detected (NotDetected); Methadone Screen, Urine Not Detected (NotDetected); Opiate Screen,Urine Not Detected (NotDetected); Oxycodone Screen, Urine Not Detected (NotDetected); Phencyclidine Screen,Urine Not Detected (NotDetected); Tricyclic Antidepressant,Urine Not Detected (NotDetected); Urn Cannabinoid Scrn Not Detected (NotDetected)
[2021-11-15 14:35] LABS: Basophils # (A) 0.1 k/uL (0-0.2); Basophils % (A) 1 %; Eosinophils # (A) 0.1 k/uL (0-0.7); Eosinophils % (A) 1 %; HCT 38.4 % (34.0-46.0); HGB 12.1 gm/dL (11.4-16.0); Hypochromasia Slight; Lymphocytes # (A) 3.2 k/uL (1.0-4.8); Lymphocytes % (A) 31 %; MCH 29.4 pg (25.0-35.0); MCHC 31.5 g/dL (31.0-37.0); MCV 93.2 fL (80.0-100.0); Mean Platelet Volume 7.5; Monocytes # (A) 0.3 k/uL (0-1.0); Monocytes % (A) 3 %; Neutrophils # (A) 6.6 k/uL (1.3-7.7); Neutrophils % (A) 63 %; Platelet Count 475 k/uL (150-450); RBC 4.12 m/uL (3.80-5.40); RDW 14.8 % (11.5-15.5); WBC 10.5 k/uL (3.8-10.6)
[2021-11-15 15:23] LABS: Glucose,Whole Blood 317 mg/dL (75-99)
[2021-11-15] MEDS ORDERED: SODIUM CHLORIDE 0.9% 1,000 ML IV STA (15:36)
[2021-11-15 15:37] LABS: ALT 28 U/L (4-34); AST 36 U/L (14-36); Acetaminophen <10.0 ug/mL; African American GFR (CKD) >90 (>60 ml/min/1.73 sqM); Albumin 4.6 g/dL (3.5-5.0); Alcohol <10 mg/dL; Alkaline Phosphatase 130 U/L (38-126); Anion Gap 13 mmol/L; Blood Urea Nitrogen 16 mg/dL (7-17); Calcium 9.9 mg/dL (8.4-10.2); Carbon Dioxide 22 mmol/L (22-30); Chloride 101 mmol/L (98-107); Creatine Kinase 37 U/L (30-135); Glucose 483 mg/dL (74-99); Lipase 15 U/L (23-300); Magnesium 1.6 mg/dL (1.6-2.3); Non-African American GFR(CKD) >90 (>60 ml/min/1.73 sqM); Potassium 4.5 mmol/L (3.5-5.1); Salicylate <1.0 mg/dL; Sodium 136 mmol/L (137-145); Total Bilirubin 0.2 mg/dL (0.2-1.3); Total Protein 7.7 g/dL (6.3-8.2)
[2021-11-15 16:52] LABS: Glucose,Whole Blood 190 mg/dL (75-99)
[2021-11-15 20:03] VITALS: BP 115/75; PULSE 93; TEMP 97.9
== END 2021-11-15 22:24 | disposition home or self-care (01) ==
LOC: EC 13:01
DX: F39 Unspecified mood [affective] disorder (principal); E11.65 Type 2 diabetes mellitus with hyperglycemia; E78.5 Hyperlipidemia, unspecified; K21.9 Gastro-esophageal reflux disease without esophagitis; Z79.83 Long term (current) use of bisphosphonates; Z86.73 Personal history of transient ischemic attack (TIA), and cerebral infarction without residual deficits; F17.200 Nicotine dependence, unspecified, uncomplicated
CPT/HCPCS: 82075; 36415; 80053; 82550; 82009; 83605; 83690; 83735; 85025; 80306; 80143; 80179; 99284; 96360; 96361; G0480; 80320

== ENCOUNTER 2022-05-08 12:34 | Emergency (ER) | payer OTHER ==
[2022-05-08 12:40] VITALS: TEMP 97.7
--- NOTE | 2022-05-08 13:04 | ED ---
General Adult HPI <Sonu Muse - Last Filed: 05/09/22 13:40> - General Source: patient, family Mode of arrival: ambulatory Limitations: no limitations <Anatoly Proctor - Last Filed: 05/14/22 07:02> - General Chief complaint: Psychiatric Symptoms Stated complaint: mental health Time Seen by Provider: 05/08/22 12:41 - History of Present Illness Initial comments: Dictation was produced using [employer] dictation software. please excuse any grammatical, word or spelling errors. Chief Complaint: 61-year-old female presents emergency department for psychiatric evaluation History of Present Illness: 61-year-old female with past medical history of psychiatric illness. She was following up at [facility] today when they felt like patient had psychotic features. Patient does admit to meth use. No recent meth use. 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 The ROS documented in this emergency department record has been reviewed and confirmed by me. Those systems with pertinent positive or negative responses have been documented in the HPI. All other systems are other negative and/or noncontributory. PHYSICAL EXAM: General Impression: Alert and oriented x3, not in acute distress HEENT: Normocephalic atraumatic, extra-ocular movements intact, pupils equal and reactive to light bilaterally, mucous membranes moist. Cardiovascular: Heart regular rate and rhythm Chest: Able to complete full sentences, no retractions, no tachypnea Abdomen: abdomen soft, non-tender, non-distended, no organomegaly Musculoskeletal: Pulses present and equal in all extremities, no peripheral edema Motor: no focal deficits noted Neurological: CN II-XII grossly intact, no focal motor or sensory deficits noted Skin: Intact with no visualized rashes Psych: Manic thinking ED course: 61-year-old female with past medical history of meth use and psychiatric disease presents to the emergency room for psychiatric evaluation. Patient presents with psychotic features. Vital signs upon arrival are within acceptable limits. Case signed out to oncoming physician, Dr. Muse (Anatoly Proctor) - Related Data Home Medications Medication Instructions Recorded Confirmed Omeprazole 20 mg PO DAILY 04/05/18 05/08/22 INSULIN LISPRO (HumaLOG) [humaLOG] 20 units SQ AC-TID 05/08/22 05/08/22 Insulin Glargine [Lantus Vial] 50 unit SQ HS 05/08/22 05/08/22 Previous Rx's Medication Instructions Recorded ARIPiprazole [Abilify] 10 mg PO HS #30 tab 10/25/21 Rcspqn-Lvnnrqgo-Obwqnwo [Zenpep 10] 4 cap PO AC-TID #120 cap 10/25/21 QUEtiapine [SEROquel] 100 mg PO HS #30 tab 10/25/21 hydrOXYzine pamoate [hydrOXYzine 25 mg PO BID PRN #30 cap 10/25/21 PAMOATE] lamoTRIgine 200 mg PO DAILY 30 Days #30 tab 10/25/21 metFORMIN HCL [Glucophage] 850 mg PO BID #60 tab 10/25/21 Cephalexin [Keflex] 500 mg PO Q6HR 1 Days #40 cap 05/09/22 Allergies Allergy/AdvReac Type Severity Reaction Status Date / Time No Known Allergies Allergy Verified 05/08/22 14:45 Review of Systems ROS Other: All systems not noted in ROS Statement are negative. <Sonu Muse - Last Filed: 05/09/22 13:40> ROS Other: All systems not noted in ROS Statement are negative. <Anatoly Proctor - Last Filed: 05/14/22 07:02> ROS Statement: Those systems with pertinent positive or pertinent negative responses have been documented in the HPI. Past Medical History Past Medical History: Cancer, CVA/TIA, Diabetes Mellitus, GERD/Reflux, Hyperlipidemia, Renal Disease Additional Past Medical History / Comment(s): Chronic pancreatitis,wt loss of 60-70 pounds over last year, HEART MURMUR AND ENLARGED AORTA, tia's, colon polyps-benign, "blood pressure tends to run low ended up in ICU" pt states recent UTI treated,merle neuropathy,throat CA at age 6,chronic bronchitis recent fall with left rib fractures, hematoma to right forehead History of Any Multi-Drug Resistant Organisms: MRSA Date of last positivie culture/infection: 10/20/21 MDRO Source:: Head Past Surgical History: Appendectomy Additional Past Surgical History / Comment(s): CYST REMOVED FROM NECK. RT 3RD/4TH FINGER PARTIAL AMP D/T INJURY, lt ureter stent. COLONOSCOPY/POLYPECTOMY Past Anesthesia/Blood Transfusion Reactions: Motion Sickness, Postoperative Nausea & Vomiting (PONV) Past Psychological History: Anxiety, Bipolar, Depression, PTSD, Schizophrenia Smoking Status: Current every day smoker Past Alcohol Use History: None Reported Past Drug Use History: Methamphetamine, Prescription Drug Abuse - Past Family History Father Family Medical History: Liver Disease Additional Family Medical History / Comment(s): Father at age 78 from cirrhosis of the liver. Mother Family Medical History: No Reported History Additional Family Medical History / Comment(s): Mother is alive in her 80s Sister(s) Family Medical History: Coronary Artery Disease (CAD) Additional Family Medical History / Comment(s): Patient has 2 sisters and one has from an overdose. She has 1 brother with no major medical problems. 4cm aortic aneurysm <Anatoly Proctor - Last Filed: 05/14/22 07:02> General Exam Limitations: no limitations <Anatoly Proctor - Last Filed: 05/14/22 07:02> Course Vital Signs 05/08/22 05/08/22 05/09/22 12:37 17:00 06:33 Temperature 97.7 F Pulse Rate 100 82 101 H Respiratory 20 16 16 Rate Blood Pressure 110/68 113/80 O2 Sat by Pulse 98 98 98 Oximetry 05/09/22 13:48 Temperature Pulse Rate 98 Respiratory 16 Rate Blood Pressure 106/75 O2 Sat by Pulse 100 Oximetry Medical Decision Making - Lab Data Result diagrams: 05/08/22 13:50 05/08/22 13:50 <Sonu Muse - Last Filed: 05/09/22 13:40> - Lab Data Result diagrams: 05/08/22 13:50 05/08/22 13:50 <Anatoly Proctor - Last Filed: 05/14/22 07:02> - Medical Decision Making The patient was endorsed at shift change pending EPS evaluation. Patient was reevaluated by EPS on not to be psychotic, not to be wrist herself or anyone e lse. He does have evidence of urinary tract infection. She was given IV fluids and IV antibiotics. She will be discharged on oral antibiotics. She will follow up outpatient (Sonu Muse) - Lab Data Lab Results 05/08/22 05/08/22 05/08/22 Range/Units 13:23 13:50 13:50 WBC 13.4 H (3.8-10.6) k/uL RBC 4.58 (3.80-5.40) m/uL Hgb 14.0 (11.4-16.0) gm/dL Hct 40.9 (34.0-46.0) % MCV 89.4 (80.0-100.0) fL MCH 30.6 (25.0-35.0) pg MCHC 34.2 (31.0-37.0) g/dL RDW 13.2 (11.5-15.5) % Plt Count 327 (150-450) k/uL MPV 8.5 Neutrophils % (Manual) 49 % Lymphocytes % (Manual) 43 % Monocytes % (Manual) 6 % Eosinophils % (Manual) 2 % Neutrophils # (Manual) 6.57 (1.3-7.7) k/uL Lymphocytes # (Manual) 5.76 H (1.0-4.8) k/uL Monocytes # (Manual) 0.80 (0-1.0) k/uL Eosinophils # (Manual) 0.27 (0-0.7) k/uL Nucleated RBCs 0 (0-0) /100 WBC Manual Slide Review Performed Sodium 136 L (137-145) mmol/L Potassium 4.3 (3.5-5.1) mmol/L Chloride 103 (98-107) mmol/L Carbon Dioxide 19 L (22-30) mmol/L Anion Gap 14 mmol/L BUN 33 H (7-17) mg/dL Creatinine 1.17 H (0.52-1.04) mg/dL Est GFR (CKD-EPI)AfAm 59 (>60 ml/min/1.73 sqM) Est GFR (CKD-EPI)NonAf 51 (>60 ml/min/1.73 sqM) Glucose 421 H (74-99) mg/dL POC Glucose (mg/dL) 437 H (70-110) mg/dL POC Glu Supervisor [employer] Jose Barrett [address] Glu mg/dL Hemoglobin A1c (0.0-6.0) % Calcium 9.8 (8.4-10.2) mg/dL Total Bilirubin 0.6 (0.2-1.3) mg/dL AST 20 (14-36) U/L ALT 20 (4-34) U/L Alkaline Phosphatase 123 (38-126) U/L Total Protein 7.9 (6.3-8.2) g/dL Albumin 5.0 (3.5-5.0) g/dL Urine Color Urine Appearance (Clear) Urine pH (5.0-8.0) Ur Specific [place] (1.001-1.035) Urine Protein (Negative) Urine Glucose (UA) (Negative) Urine Ketones (Negative) Urine Blood (Negative) Urine Nitrite (Negative) Urine Bilirubin (Negative) Urine Urobilinogen (<2.0) mg/dL Ur Leukocyte Esterase (Negative) Urine RBC (0-5) /hpf Urine WBC (0-5) /hpf Ur Squamous Epith Cells (0-4) /hpf Urine Bacteria (None) /hpf Hyaline Casts (0-2) /lpf Urine Mucus (None) /hpf Urine Opiates Screen (NotDetected) Ur Oxycodone Screen (NotDetected) Urine Methadone Screen (NotDetected) Ur Propoxyphene Screen (NotDetected) Ur Barbiturates Screen (NotDetected) U Tricyclic Antidepress (NotDetected) Ur Phencyclidine Scrn (NotDetected) Ur Amphetamines Screen (NotDetected) U Methamphetamines Scrn (NotDetected) U Benzodiazepines Scrn (NotDetected) Urine Cocaine Screen (NotDetected) U Marijuana (THC) Screen (NotDetected) 05/08/22 05/08/22 05/09/22 Range/Units 13:50 15:56 02:05 WBC (3.8-10.6) k/uL RBC (3.80-5.40) m/uL Hgb (11.4-16.0) gm/dL Hct (34.0-46.0) % MCV (80.0-100.0) fL MCH (25.0-35.0) pg MCHC (31.0-37.0) g/dL RDW (11.5-15.5) % Plt Count (150-450) k/uL MPV Neutrophils % (Manual) % Lymphocytes % (Manual) % Monocytes % (Manual) % Eosinophils % (Manual) % Neutrophils # (Manual) (1.3-7.7) k/uL Lymphocytes # (Manual) (1.0-4.8) k/uL Monocytes # (Manual) (0-1.0) k/uL Eosinophils # (Manual) (0-0.7) k/uL Nucleated RBCs (0-0) /100 WBC Manual Slide Review Sodium (137-145) mmol/L Potassium (3.5-5.1) mmol/L Chloride (98-107) mmol/L Carbon Dioxide (22-30) mmol/L Anion Gap mmol/L BUN (7-17) mg/dL Creatinine (0.52-1.04) mg/dL Est GFR (CKD-EPI)AfAm (>60 ml/min/1.73 sqM) Est GFR (CKD-EPI)NonAf (>60 ml/min/1.73 sqM) Glucose (74-99) mg/dL POC Glucose (mg/dL) 382 H 132 H (70-110) mg/dL POC Glu Supervisor [employer] ID FritzRhonda Emily [address] Glu mg/dL 234 Hemoglobin A1c 9.8 H (0.0-6.0) % Calcium (8.4-10.2) mg/dL Total Bilirubin (0.2-1.3) mg/dL AST (14-36) U/L ALT (4-34) U/L Alkaline Phosphatase (38-126) U/L Total Protein (6.3-8.2) g/dL Albumin (3.5-5.0) g/dL Urine Color Urine Appearance (Clear) Urine pH (5.0-8.0) Ur Specific [place] (1.001-1.035) Urine Protein (Negative) Urine Glucose (UA) (Negative) Urine Ketones (Negative) Urine Blood (Negative) Urine Nitrite (Negative) Urine Bilirubin (Negative) Urine Urobilinogen (<2.0) mg/dL Ur Leukocyte Esterase (Negative) Urine RBC (0-5) /hpf Urine WBC (0-5) /hpf Ur Squamous Epith Cells (0-4) /hpf Urine Bacteria (None) /hpf Hyaline Casts (0-2) /lpf Urine Mucus (None) /hpf Urine Opiates Screen (NotDetected) Ur Oxycodone Screen (NotDetected) Urine Methadone Screen (NotDetected) Ur Propoxyphene Screen (NotDetected) Ur Barbiturates Screen (NotDetected) U Tricyclic Antidepress (NotDetected) Ur Phencyclidine Scrn (NotDetected) Ur Amphetamines Screen (NotDetected) U Methamphetamines Scrn (NotDetected) U Benzodiazepines Scrn (NotDetected) Urine Cocaine Screen (NotDetected) U Marijuana (THC) Screen (NotDetected) 05/09/22 05/09/22 05/09/22 Range/Units 02:07 02:07 07:19 WBC (3.8-10.6) k/uL RBC (3.80-5.40) m/uL Hgb (11.4-16.0) gm/dL Hct (34.0-46.0) % MCV (80.0-100.0) fL MCH (25.0-35.0) pg MCHC (31.0-37.0) g/dL RDW (11.5-15.5) % Plt Count (150-450) k/uL MPV Neutrophils % (Manual) % Lymphocytes % (Manual) % Monocytes % (Manual) % Eosinophils % (Manual) % Neutrophils # (Manual) (1.3-7.7) k/uL Lymphocytes # (Manual) (1.0-4.8) k/uL Monocytes # (Manual) (0-1.0) k/uL Eosinophils # (Manual) (0-0.7) k/uL Nucleated RBCs (0-0) /100 WBC Manual Slide Review Sodium (137-145) mmol/L Potassium (3.5-5.1) mmol/L Chloride (98-107) mmol/L Carbon Dioxide (22-30) mmol/L Anion Gap mmol/L BUN (7-17) mg/dL Creatinine (0.52-1.04) mg/dL Est GFR (CKD-EPI)AfAm (>60 ml/min/1.73 sqM) Est GFR (CKD-EPI)NonAf (>60 ml/min/1.73 sqM) Glucose (74-99) mg/dL POC Glucose (mg/dL) 231 H (70-110) mg/dL POC Glu Supervisor [employer] ID Jamarcus Chastity [address] Glu mg/dL Hemoglobin A1c (0.0-6.0) % Calcium (8.4-10.2) mg/dL Total Bilirubin (0.2-1.3) mg/dL AST (14-36) U/L ALT (4-34) U/L Alkaline Phosphatase (38-126) U/L Total Protein (6.3-8.2) g/dL Albumin (3.5-5.0) g/dL Urine Color Yellow Urine Appearance Cloudy H (Clear) Urine pH 5.0 (5.0-8.0) Ur Specific [place] 1.022 (1.001-1.035) Urine Protein 1+ H (Negative) Urine Glucose (UA) 4+ H (Negative) Urine Ketones 1+ H (Negative) Urine Blood Trace H (Negative) Urine Nitrite Positive H (Negative) Urine Bilirubin Negative (Negative) Urine Urobilinogen <2.0 (<2.0) mg/dL Ur Leukocyte Esterase Moderate H (Negative) Urine RBC 1 (0-5) /hpf Urine WBC 81 H (0-5) /hpf Ur Squamous Epith Cells <1 (0-4) /hpf Urine Bacteria Many H (None) /hpf Hyaline Casts 5 H (0-2) /lpf Urine Mucus Rare H (None) /hpf Urine Opiates Screen Not Detected (NotDetected) Ur Oxycodone Screen Not Detected (NotDetected) Urine Methadone Screen Not Detected (NotDetected) Ur Propoxyphene Screen Not Detected (NotDetected) Ur Barbiturates Screen Not Detected (NotDetected) U Tricyclic Antidepress Detected H (NotDetected) Ur Phencyclidine Scrn Not Detected (NotDetected) Ur Amphetamines Screen Detected H (NotDetected) U Methamphetamines Scrn Detected H (NotDetected) U Benzodiazepines Scrn Detected H (NotDetected) Urine Cocaine Screen Detected H (NotDetected) U Marijuana (THC) Screen Not Detected (NotDetected) 05/09/22 05/09/22 Range/Units 09:48 11:42 WBC (3.8-10.6) k/uL RBC (3.80-5.40) m/uL Hgb (11.4-16.0) gm/dL Hct (34.0-46.0) % MCV (80.0-100.0) fL MCH (25.0-35.0) pg MCHC (31.0-37.0) g/dL RDW (11.5-15.5) % Plt Count (150-450) k/uL MPV Neutrophils % (Manual) % Lymphocytes % (Manual) % Monocytes % (Manual) % Eosinophils % (Manual) % Neutrophils # (Manual) (1.3-7.7) k/uL Lymphocytes # (Manual) (1.0-4.8) k/uL Monocytes # (Manual) (0-1.0) k/uL Eosinophils # (Manual) (0-0.7) k/uL Nucleated RBCs (0-0) /100 WBC Manual Slide Review Sodium (137-145) mmol/L Potassium (3.5-5.1) mmol/L Chloride (98-107) mmol/L Carbon Dioxide (22-30) mmol/L Anion Gap mmol/L BUN (7-17) mg/dL Creatinine (0.52-1.04) mg/dL Est GFR (CKD-EPI)AfAm (>60 ml/min/1.73 sqM) Est GFR (CKD-EPI)NonAf (>60 ml/min/1.73 sqM) Glucose (74-99) mg/dL POC Glucose (mg/dL) 291 H 267 H (70-110) mg/dL POC Glu Supervisor [employer] ELVIN [place], Srinivasan NashvilleSrin[address] Glu mg/dL Hemoglobin A1c (0.0-6.0) % Calcium (8.4-10.2) mg/dL Total Bilirubin (0.2-1.3) mg/dL AST (14-36) U/L ALT (4-34) U/L Alkaline Phosphatase (38-126) U/L Total Protein (6.3-8.2) g/dL Albumin (3.5-5.0) g/dL Urine Color Urine Appearance (Clear) Urine pH (5.0-8.0) Ur Specific [place] (1.001-1.035) Urine Protein (Negative) Urine Glucose (UA) (Negative) Urine Ketones (Negative) Urine Blood (Negative) Urine Nitrite (Negative) Urine Bilirubin (Negative) Urine Urobilinogen (<2.0) mg/dL Ur Leukocyte Esterase (Negative) Urine RBC (0-5) /hpf Urine WBC (0-5) /hpf Ur Squamous Epith Cells (0-4) /hpf Urine Bacteria (None) /hpf Hyaline Casts (0-2) /lpf Urine Mucus (None) /hpf Urine Opiates Screen (NotDetected) Ur Oxycodone Screen (NotDetected) Urine Methadone Screen (NotDetected) Ur Propoxyphene Screen (NotDetected) Ur Barbiturates Screen (NotDetected) U Tricyclic Antidepress (NotDetected) Ur Phencyclidine Scrn (NotDetected) Ur Amphetamines Screen (NotDetected) U Methamphetamines Scrn (NotDetected) U Benzodiazepines Scrn (NotDetected) Urine Cocaine Screen (NotDetected) U Marijuana (THC) Screen (NotDetected) Disposition Is patient prescribed a controlled substance at d/c from ED?: No <Sonu Muse - Last Filed: 05/09/22 13:40> Is patient prescribed a controlled substance at d/c from ED?: No <Anatoly Proctor - Last Filed: 05/14/22 07:02> Clinical Impression: Urinary tract infection, Adjustment reaction of adult life, Substance abuse, Dehydration Disposition: HOME SELF-CARE Condition: Good Instructions (If sedation given, give patient instructions): Dehydration (ED), Urinary Tract Infection in Women (ED), Mood Disorders (ED), Polysubstance Abuse (ED) Prescriptions: Cephalexin [Keflex] 500 mg PO Q6HR 1 Days #40 cap Referrals: Cecilia Cortez MD [Primary Care Provider] - 1-2 days
[2022-05-08 13:25] LABS: Glucose,Whole Blood 437 mg/dL (70-110)
[2022-05-08] MEDS ORDERED: LORazepam 1 MG TAB PO STA (13:38)
[2022-05-08 14:09] LABS: HCT 40.9 % (34.0-46.0); MCH 30.6 pg (25.0-35.0); MCHC 34.2 g/dL (31.0-37.0); MCV 89.4 fL (80.0-100.0); Mean Platelet Volume 8.5; Platelet Count 327 k/uL (150-450); RBC 4.58 m/uL (3.80-5.40); RDW 13.2 % (11.5-15.5); WBC 13.4 k/uL (3.8-10.6)
[2022-05-08 14:20] LABS: Eosinophils # (M) 0.27 k/uL (0-0.7); Lymphocytes # (M) 5.76 k/uL (1.0-4.8); Neutrophils # (M) 6.57 k/uL (1.3-7.7); Neutrophils % (M) 49 %; Nucleated Red Blood Cells 0 /100 WBC (0-0); Total Cells Counted 100
[2022-05-08 14:26] LABS: Calcium 9.8 mg/dL (8.4-10.2); Potassium 4.3 mmol/L (3.5-5.1); Total Bilirubin 0.6 mg/dL (0.2-1.3); Total Protein 7.9 g/dL (6.3-8.2)
[2022-05-08] MEDS ORDERED: OLANZapine 10 MG VIAL IM STA (15:21)
[2022-05-08] MEDS ORDERED: DEXTROSE 50% SYRINGE 50 ML IVP PRN ×2 (15:34)
[2022-05-08 15:58] LABS: Glucose,Whole Blood 382 mg/dL (70-110)
[2022-05-08] MEDS: INSULIN ASPART (NovoLOG) 100 UNIT/ML VIAL SQ SCH (15:58)
[2022-05-08 17:23] VITALS: RESP 16
[2022-05-09] MEDS ORDERED: INSULIN REGULAR 100 UNIT/ML VIAL (IM/SQ) SQ STA (01:47)
[2022-05-09 02:08] LABS: Glucose,Whole Blood 132 mg/dL (70-110)
[2022-05-09 02:26] LABS: Amphetamine Screen,Urine Detected (NotDetected); Barbiturate Screen,Urine Not Detected (NotDetected); Benzodiazepines Screen,Urine Detected (NotDetected); Cocaine Screen,Urine Detected (NotDetected); Methadone Screen, Urine Not Detected (NotDetected); Opiate Screen,Urine Not Detected (NotDetected); Oxycodone Screen, Urine Not Detected (NotDetected); Phencyclidine Screen,Urine Not Detected (NotDetected); Tricyclic Antidepressant,Urine Detected (NotDetected); Urn Cannabinoid Scrn Not Detected (NotDetected)
[2022-05-09 04:20] LABS: Appearance,Urine Cloudy (Clear); Bacteria,Urine Many /hpf; Bilirubin,Urine Negative (Negative); Blood,Urine Trace (Negative); Color,Urine Yellow; Glucose,Urine (UA) 4+ (Negative); Hyaline Casts,Urine 5 /lpf (0-2); Ketones,Urine 1+ (Negative); Leukocyte Esterase,Urine Moderate (Negative); Mucus,Urine Rare /hpf; Nitrite,Urine Positive (Negative); Protein,Urine 1+ (Negative); RBC,Urine 1 /hpf (0-5); Specific Gravity,Urine 1.022 (1.001-1.035); Squamous Epithelial Cell,Urine <1 /hpf (0-4); Urobilinogen,Urine <2.0 mg/dL (<2.0); WBC,Urine 81 /hpf (0-5)
[2022-05-09 07:21] LABS: Glucose,Whole Blood 231 mg/dL (70-110)
[2022-05-09] MEDS: INSULIN ASPART (NovoLOG) 100 UNIT/ML VIAL SQ SCH (07:29)
[2022-05-09] MEDS ORDERED: cefTRIAXone IN SWFI 1,000 MG/10 ML SYRINGE IVP STA (08:26)
[2022-05-09] MEDS ORDERED: SODIUM CHLORIDE 0.9% 500 ML 500 ML IV STA (08:26)
[2022-05-09 09:50] LABS: Glucose,Whole Blood 291 mg/dL (70-110)
[2022-05-09 11:43] LABS: Glucose,Whole Blood 267 mg/dL (70-110)
[2022-05-09 13:49] VITALS: BP 106/75; PULSE 98
== END 2022-05-09 14:05 | disposition home or self-care (01) ==
LOC: EC 12:34
DX: N39.0 Urinary tract infection, site not specified (principal); F43.20 Adjustment disorder, unspecified; F19.10 Other psychoactive substance abuse, uncomplicated; E86.0 Dehydration; F17.200 Nicotine dependence, unspecified, uncomplicated; F41.9 Anxiety disorder, unspecified; F32.A Depression, unspecified; K21.9 Gastro-esophageal reflux disease without esophagitis; E78.5 Hyperlipidemia, unspecified; E11.29 Type 2 diabetes mellitus with other diabetic kidney complication; N18.9 Chronic kidney disease, unspecified; Z79.83 Long term (current) use of bisphosphonates; Z79.4 Long term (current) use of insulin; Z79.899 Other long term (current) drug therapy
CPT/HCPCS: 82075; 36415 ×2; 80053; 85025; 81001; 80306; 83036; 99285; 96374; 96372; J0696

== ENCOUNTER 2022-05-15 19:37 | Emergency (ER) | payer OTHER ==
[2022-05-15 20:10] VITALS: TEMP 97.4
--- NOTE | 2022-05-15 20:41 | ED ---
General Adult HPI - General Chief complaint: Psychiatric Symptoms Stated complaint: Petition Time Seen by Provider: 05/15/22 20:28 Source: patient Mode of arrival: ambulatory Limitations: no limitations - History of Present Illness Initial comments: Dictation was produced using [employer] dictation software. please excuse any grammatical, word or spelling errors. Chief Complaint: 61-year-old female presents emergency Department petition by police for psychiatric evaluation History of Present Illness: Patient's 61-year-old female she is well-known to emergency department. Patient is a history of illicit drug abuse. States she smoked some meth today. Law enforcement was called because patient was going into [employer]. Law enforcement was called patient is brought to the emergency room. Patient does not know why she is here. Patient denies any complaints. The ROS documented in this emergency department record has been reviewed and confirmed by me. Those systems with pertinent positive or negative responses have been documented in the HPI. All other systems are other negative and/or noncontributory. PHYSICAL EXAM: General Impression: Alert and oriented x3, not in acute distress HEENT: Normocephalic atraumatic, extra-ocular movements intact, pupils equal and reactive to light bilaterally, mucous membranes moist. Cardiovascular: Heart regular rate and rhythm Chest: Able to complete full sentences, no retractions, no tachypnea Abdomen: abdomen soft, non-tender, non-distended, no organomegaly Musculoskeletal: Pulses present and equal in all extremities, no peripheral edema Motor: no focal deficits noted Neurological: CN II-XII grossly intact, no focal motor or sensory deficits noted Skin: Intact with no visualized rashes Psych: Normal affect and mood ED course: 61-year-old female presents to the emergency department for psychiatric evaluation. She has been petition by police vital signs upon arrival are within acceptable limits. Patient's well-known to emergency department. She is at baseline. Patient evaluated by EPS and will be discharged. Critical Care: no Critical Care time: n/a - Related Data Home Medications Medication Instructions Recorded Confirmed Omeprazole 20 mg PO DAILY 04/05/18 05/08/22 INSULIN LISPRO (HumaLOG) [humaLOG] 20 units SQ AC-TID 05/08/22 05/08/22 Insulin Glargine [Lantus Vial] 50 unit SQ HS 05/08/22 05/08/22 Previous Rx's Medication Instructions Recorded ARIPiprazole [Abilify] 10 mg PO HS #30 tab 10/25/21 Arnaos-Hjhzwgzx-Uroewog [Zenpep 10] 4 cap PO AC-TID #120 cap 10/25/21 QUEtiapine [SEROquel] 100 mg PO HS #30 tab 10/25/21 hydrOXYzine pamoate [hydrOXYzine 25 mg PO BID PRN #30 cap 10/25/21 PAMOATE] lamoTRIgine 200 mg PO DAILY 30 Days #30 tab 10/25/21 metFORMIN HCL [Glucophage] 850 mg PO BID #60 tab 10/25/21 Cephalexin [Keflex] 500 mg PO Q6HR 1 Days #40 cap 05/09/22 Allergies Allergy/AdvReac Type Severity Reaction Status Date / Time No Known Allergies Allergy Verified 05/08/22 14:45 Review of Systems ROS Statement: Those systems with pertinent positive or pertinent negative responses have been documented in the HPI. ROS Other: All systems not noted in ROS Statement are negative. Past Medical History Past Medical History: Cancer, CVA/TIA, Diabetes Mellitus, GERD/Reflux, Hyperlipidemia, Renal Disease Additional Past Medical History / Comment(s): Chronic pancreatitis,wt loss of 60-70 pounds over last year, HEART MURMUR AND ENLARGED AORTA, tia's, colon polyp s-benign, "blood pressure tends to run low ended up in ICU" pt states recent UTI treated,merle neuropathy,throat CA at age 6,chronic bronchitis recent fall with left rib fractures, hematoma to right forehead History of Any Multi-Drug Resistant Organisms: MRSA Date of last positivie culture/infection: 10/20/21 MDRO Source:: Head Past Surgical History: Appendectomy Additional Past Surgical History / Comment(s): CYST REMOVED FROM NECK. RT 3RD/4TH FINGER PARTIAL AMP D/T INJURY, lt ureter stent. COLONOSCOPY/POLYPECTOMY Past Anesthesia/Blood Transfusion Reactions: Motion Sickness, Postoperative Nausea & Vomiting (PONV) Past Psychological History: Anxiety, Bipolar, Depression, PTSD, Schizophrenia Smoking Status: Current every day smoker Past Alcohol Use History: None Reported Past Drug Use History: Methamphetamine, Prescription Drug Abuse - Past Family History Father Family Medical History: Liver Disease Additional Family Medical History / Comment(s): Father at age 78 from cirrhosis of the liver. Mother Family Medical History: No Reported History Additional Family Medical History / Comment(s): Mother is alive in her 80s Sister(s) Family Medical History: Coronary Artery Disease (CAD) Additional Family Medical History / Comment(s): Patient has 2 sisters and one has from an overdose. She has 1 brother with no major medical problems. 4cm aortic aneurysm General Exam Limitations: no limitations Course Vital Signs 05/15/22 20:05 Temperature 97.4 F L Pulse Rate 104 H Respiratory 16 Rate Blood Pressure 159/94 O2 Sat by Pulse 98 Oximetry Disposition Clinical Impression: Psychiatric complaint Disposition: HOME SELF-CARE Condition: Good Is patient prescribed a controlled substance at d/c from ED?: No Referrals: Cecilia Cortez MD [Primary Care Provider] - 1-2 days Time of Disposition: 22:16
[2022-05-15 22:22] VITALS: BP 136/92; PULSE 102; RESP 18
== END 2022-05-15 22:32 | disposition home or self-care (01) ==
LOC: EC 19:37
DX: F99 Mental disorder, not otherwise specified (principal); G45.9 Transient cerebral ischemic attack, unspecified; K21.9 Gastro-esophageal reflux disease without esophagitis; E78.5 Hyperlipidemia, unspecified; E11.22 Type 2 diabetes mellitus with diabetic chronic kidney disease; N18.9 Chronic kidney disease, unspecified; F41.9 Anxiety disorder, unspecified; F31.9 Bipolar disorder, unspecified; F17.200 Nicotine dependence, unspecified, uncomplicated; Z79.83 Long term (current) use of bisphosphonates; Z79.899 Other long term (current) drug therapy
CPT/HCPCS: 82075; 99285

== ENCOUNTER 2022-09-24 09:40 | Emergency (ER) | payer OTHER ==
[2022-09-24 09:48] VITALS: RESP 16
[2022-09-24] MEDS ORDERED: SODIUM CHLORIDE 0.9% 1,000 ML IV STA (10:15)
[2022-09-24] MEDS ORDERED: ONDANSETRON 4 MG/2 ML VIAL IVP STA (10:15)
[2022-09-24] MEDS ORDERED: KETOROLAC 15 MG/ML 1 ML VIAL IVP STA (10:22)
--- NOTE | 2022-09-24 10:22 | ED ---
General Adult HPI - General Chief complaint: Abdominal Pain Stated complaint: Pancreatitis Time Seen by Provider: 09/24/22 09:55 Source: patient, RN notes reviewed, old records reviewed Mode of arrival: ambulatory Limitations: no limitations - History of Present Illness Initial comments: This is a 62-year-old female with a past medical history significant for chronic pancreatitis. Patient comes in today stating that last day she's had epigastric abdominal pain very nauseated. Patient states the pain is aggressively worse is consistent with the pain she had in the past for pancreatitis. Patient denies any chest pain or difficulty breathing. Patient denies any fever chills per patient denies any diarrhea. Patient denies any other issues this time. - Related Data Home Medications Medication Instructions Recorded Confirmed Omeprazole 20 mg PO DAILY 04/05/18 05/08/22 INSULIN LISPRO (HumaLOG) [humaLOG] 20 units SQ AC-TID 05/08/22 05/08/22 Insulin Glargine [Lantus Vial] 50 unit SQ HS 05/08/22 05/08/22 Previous Rx's Medication Instructions Recorded ARIPiprazole [Abilify] 10 mg PO HS #30 tab 10/25/21 Llkaqb-Lgfxvcsw-Nvbsdpm [Zenpep 10] 4 cap PO AC-TID #120 cap 10/25/21 QUEtiapine [SEROquel] 100 mg PO HS #30 tab 10/25/21 hydrOXYzine pamoate [hydrOXYzine 25 mg PO BID PRN #30 cap 10/25/21 PAMOATE] lamoTRIgine 200 mg PO DAILY 30 Days #30 tab 10/25/21 metFORMIN HCL [Glucophage] 850 mg PO BID #60 tab 10/25/21 Cephalexin [Keflex] 500 mg PO Q6HR 1 Days #40 cap 05/09/22 Allergies Allergy/AdvReac Type Severity Reaction Status Date / Time No Known Allergies Allergy Verified 09/24/22 09:47 Review of Systems ROS Statement: Those systems with pertinent positive or pertinent negative responses have been documented in the HPI. ROS Other: All systems not noted in ROS Statement are negative. Past Medical History Past Medical History: Cancer, CVA/TIA, Diabetes Mellitus, GERD/Reflux, Hyperlipidemia, Renal Disease Additional Past Medical History / Comment(s): Chronic pancreatitis,wt loss of 60-70 pounds over last year, HEART MURMUR AND ENLARGED AORTA, tia's, colon polyps-benign, "blood pressure tends to run low ended up in ICU" pt states recent UTI treated,merle neuropathy,throat CA at age 6,chronic bronchitis recent fall with left rib fractures, hematoma to right forehead History of Any Multi-Drug Resistant Organisms: MRSA Date of last positivie culture/infection: 10/20/21 MDRO Source:: Head Past Surgical History: Appendectomy Additional Past Surgical History / Comment(s): CYST REMOVED FROM NECK. RT 3RD/4TH FINGER PARTIAL AMP D/T INJURY, lt ureter stent. COLONOSCOPY/POLYPECTOMY Past Anesthesia/Blood Transfusion Reactions: Motion Sickness, Postoperative Nausea & Vomiting (PONV) Past Psychological History: Anxiety, Bipolar, Depression, PTSD, Schizophrenia Smoking Status: Current every day smoker Past Alcohol Use History: None Reported Past Drug Use History: Methamphetamine, Prescription Drug Abuse - Past Family History Father Family Medical History: Liver Disease Additional Family Medical History / Comment(s): Father at age 78 from cirrhosis of the liver. Mother Family Medical History: No Reported History Additional Family Medical History / Comment(s): Mother is alive in her 80s Sister(s) Family Medical History: Coronary Artery Disease (CAD) Additional Family Medical History / Comment(s): Patient has 2 sisters and one has from an overdose. She has 1 brother with no major medical problems. 4cm aortic aneurysm General Exam - General Exam Comments Initial Comments: GENERAL: Patient is well-developed and well-nourished. Patient is nontoxic and well- hydrated and is in mild distress. ENT: Neck is soft and supple. No significant lymphadenopathy is noted. Oropharynx is clear. Moist mucous membranes. Neck has full range of motion without eliciting any pain. EYES: The sclera were anicteric and conjunctiva were pink and moist. Extraocular movements were intact and pupils were equal round and reactive to light. Eyelids were unremarkable. PULMONARY: Unlabored respirations. Good breath sounds bilaterally. No audible rales r honchi or wheezing was noted. CARDIOVASCULAR: There is a regular rate and rhythm without any murmurs gallops or rubs. ABDOMEN: Mild epigastric abdominal pain SKIN: Skin is clear with no lesions or rashes and otherwise unremarkable. NEUROLOGIC: Patient is alert and oriented x3. Cranial nerves II through XII are grossly intact. Motor and sensory are also intact. Normal speech, volume and content. Symmetrical smile. MUSCULOSKELETAL: Normal extremities with adequate strength and full range of motion. LYMPHATICS: No significant lymphadenopathy is noted PSYCHIATRIC: Normal psychiatric evaluation. Limitations: no limitations Course Vital Signs 09/24/22 09/24/22 09:47 10:06 Temperature 98.3 F 97.0 F L Pulse Rate 93 86 Respiratory 16 Rate Blood Pressure 145/87 139/96 O2 Sat by Pulse 100 100 Oximetry Medical Decision Making - Medical Decision Making EKG was interpreted by myself shows a sinus rhythm 82 bpm NC interval 194 QRS is 90 QT interval 355 QTC is 394. Patient's EKG shows no ST segment elevation or depression. Was pt. sent in by a medical professional or institution (, PA, EDUCATION AND TRAINING MANAGER, urgent care, hospital, or usp...) When possible be specific @ -No Did you speak to anyone other than the patient for history (EMS, parent, family, police, friend...)? What history was obtained from this source @ -No Did you review nursing and triage notes (agree or disagree)? Why? @ -I reviewed and agree with nursing and triage notes Were old charts reviewed (outside hosp., previous admission, EMS record, old EKG, old radiological studies, urgent care reports/EKG's, usp records)? Report findings @ -Reviewed prior charts from prior visits as well as prior laboratory work Differential Diagnosis (chest pain, altered mental status, abdominal pain women, abdominal pain men, vaginal bleeding, weakness, fever, dyspnea, syncope, headache, dizziness, GI bleed, back pain, seizure, CVA, palpatations, mental health, musculoskeletal)? @ -Differential Abdominal Pain Women: Appendicitis, Cholecystitis, diverticulosis, ischemic bowel, pancreatitis, hepatitis, UTI, gastroenteritis, AAA, incarcerated hernia, bowel obstruction, co nstipation, inflammatory bowel, hepatitis, peptic ulcer disease, splenic infarction, perforated viscus, vulvitis, ovarian torsion, PID, kidney stone, placenta abruption, this is not meant to be an all-inclusive list EKG interpreted by me (3pts min.). @ -As above X-rays interpreted by me (1pt min.). @ -None done CT interpreted by me (1pt min.). @ -None done U/S interpreted by me (1pt. min.). @ -None done What testing was considered but not performed or refused? (CT, X-rays, U/S, labs)? Why? @ -I did consider doing a CAT scan but patient's nausea was resolved and her pain was much improved and she felt like she can go home and return if things worsened. So at this time I did not do a CAT scan What meds were considered but not given or refused? Why? @ -None Did you discuss the management of the patient with other professionals (professionals i.e. , PA, EDUCATION AND TRAINING MANAGER, lab, RT, psych nurse, social work case manager, clamp forklift operator, teacher, legal compliance officer, skilled nursing case manager)? Give summary @ -No Was smoking cessation discussed for >3mins.? @ -No Was critical care preformed (if so, how long)? @ -No Were there social determinants of health that impacted care today? How? (Homelessness, low income, unemployed, alcoholism, drug addiction, transportation, low edu. Level, literacy, decrease access to med. care, long term, rehab)? @ -No Was there de-escalation of care discussed even if they declined (Discuss DNR or withdrawal of care, Hospice)? DNR status @ -No What co-morbidities impacted this encounter? (DM, HTN, Smoking, COPD, CAD, Cancer, CVA, ARF, Chemo, Hep., AIDS, mental health diagnosis, sleep apnea, morbid obesity)? @ -None Was patient admitted / discharged? Hospital course, mention meds given and route, prescriptions, significant lab abnormalities, going to OR and other pertinent info. @ -Epigastric abdominal pain Undiagnosed new problem with uncertain prognosis? @ -No Drug Therapy requiring intensive monitoring for toxicity (Heparin, Nitro, Insulin, Cardizem)? @ -No Were any procedures done? @ -No Diagnosis/symptom? @ -Epigastric abdominal pain Acute, or Chronic, or Acute on Chronic? @ -Acute Uncomplicated (without systemic symptoms) or Complicated (systemic symptoms)? @ -Uncomplicated Side effects of treatment? @ -No Exacerbation, Progression, or Severe Exacerbation? @ -No Poses a threat to life or bodily function? How? (Chest pain, USA, [place], pneumonia, PE, COPD, DKA, ARF, appy, cholecystitis, CVA, Diverticulitis, Homicidal, Suicidal, threat to staff... and all critical care pts) @ -No - Lab Data Result diagrams: 09/24/22 10:21 09/24/22 10:21 Lab Results 09/24/22 09/24/22 09/24/22 Range/Units 10:21 10:21 10:21 WBC 9.3 (3.8-10.6) k/uL RBC 4.26 (3.80-5.40) m/uL Hgb 12.5 (11.4-16.0) gm/dL Hct 38.2 (34.0-46.0) % MCV 89.6 (80.0-100.0) fL MCH 29.4 (25.0-35.0) pg MCHC 32.8 (31.0-37.0) g/dL RDW 14.2 (11.5-15.5) % Plt Count 338 (150-450) k/uL MPV 8.1 Neutrophils % 47 % Lymphocytes % 45 % Monocytes % 4 % Eosinophils % 0 % Basophils % 0 % Neutrophils # 4.4 (1.3-7.7) k/uL Lymphocytes # 4.2 (1.0-4.8) k/uL Monocytes # 0.4 (0-1.0) k/uL Eosinophils # 0.0 (0-0.7) k/uL Basophils # 0.0 (0-0.2) k/uL Sodium 139 (137-145) mmol/L Potassium 4.7 (3.5-5.1) mmol/L Chloride 105 (98-107) mmol/L Carbon Dioxide 23 (22-30) mmol/L Anion Gap 11 mmol/L BUN 19 H (7-17) mg/dL Creatinine 0.77 (0.52-1.04) mg/dL Est GFR (CKD-EPI)AfAm >90 (>60 ml/min/1.73 sqM) Est GFR (CKD-EPI)NonAf 84 (>60 ml/min/1.73 sqM) Glucose 115 H (74-99) mg/dL Plasma Lactic Acid Timi 1.5 (0.7-2.0) mmol/L Calcium 9.7 (8.4-10.2) mg/dL Total Bilirubin 0.2 (0.2-1.3) mg/dL AST 26 (14-36) U/L ALT 28 (4-34) U/L Alkaline Phosphatase 75 (38-126) U/L Total Protein 7.1 (6.3-8.2) g/dL Albumin 4.3 (3.5-5.0) g/dL Amylase 65 (30-110) U/L Lipase 16 L (23-300) U/L Disposition Clinical Impression: Epigastric abdominal pain Disposition: HOME SELF-CARE Instructions (If sedation given, give patient instructions): Abdominal Pain (ED) Is patient prescribed a controlled substance at d/c from ED?: No Referrals: Cecilia Cortez MD [Primary Care Provider] - 1-2 days Time of Disposition: 11:09
[2022-09-24 10:38] LABS: Basophils % (A) 0 %; Eosinophils % (A) 0 %; HCT 38.2 % (34.0-46.0); HGB 12.5 gm/dL (11.4-16.0); Lymphocytes # (A) 4.2 k/uL (1.0-4.8); Lymphocytes % (A) 45 %; MCH 29.4 pg (25.0-35.0); MCHC 32.8 g/dL (31.0-37.0); MCV 89.6 fL (80.0-100.0); Mean Platelet Volume 8.1; Monocytes # (A) 0.4 k/uL (0-1.0); Monocytes % (A) 4 %; Neutrophils # (A) 4.4 k/uL (1.3-7.7); Neutrophils % (A) 47 %; Platelet Count 338 k/uL (150-450); RBC 4.26 m/uL (3.80-5.40); RDW 14.2 % (11.5-15.5); WBC 9.3 k/uL (3.8-10.6)
[2022-09-24 10:55] LABS: ALT 28 U/L (4-34); AST 26 U/L (14-36); African American GFR (CKD) >90 (>60 ml/min/1.73 sqM); Albumin 4.3 g/dL (3.5-5.0); Alkaline Phosphatase 75 U/L (38-126); Amylase 65 U/L (30-110); Anion Gap 11 mmol/L; Blood Urea Nitrogen 19 mg/dL (7-17); Calcium 9.7 mg/dL (8.4-10.2); Carbon Dioxide 23 mmol/L (22-30); Chloride 105 mmol/L (98-107); Glucose 115 mg/dL (74-99); Lipase 16 U/L (23-300); Non-African American GFR(CKD) 84 (>60 ml/min/1.73 sqM); Potassium 4.7 mmol/L (3.5-5.1); Sodium 139 mmol/L (137-145); Total Bilirubin 0.2 mg/dL (0.2-1.3); Total Protein 7.1 g/dL (6.3-8.2)
[2022-09-24] MEDS ORDERED: ONDANSETRON 4 MG ODT STARTER PACK 2 TAB BTL PO STA (11:09)
[2022-09-24 11:21] VITALS: BP 128/84; PULSE 78; TEMP 98.4
== END 2022-09-24 11:24 | disposition home or self-care (01) ==
LOC: EC 09:40
DX: R10.13 Epigastric pain (principal); E11.9 Type 2 diabetes mellitus without complications; K21.9 Gastro-esophageal reflux disease without esophagitis; F41.9 Anxiety disorder, unspecified; F31.9 Bipolar disorder, unspecified; F17.200 Nicotine dependence, unspecified, uncomplicated; F15.10 Other stimulant abuse, uncomplicated; Z79.4 Long term (current) use of insulin; Z79.899 Other long term (current) drug therapy; Z86.73 Personal history of transient ischemic attack (TIA), and cerebral infarction without residual deficits
CPT/HCPCS: 36415; 93005; 80053; 82150; 83605; 83690; 85025; 99284; 96374; 96375; 96361; J2405; J1885; S0119

== ENCOUNTER 2022-09-30 20:13 | Emergency (ER) | payer OTHER ==
[2022-09-30 20:24] VITALS: RESP 16
--- NOTE | 2022-09-30 20:55 | ED ---
General Adult HPI - General Chief complaint: Psychiatric Symptoms Stated complaint: Mental Health Time Seen by Provider: 09/30/22 20:33 Source: patient, RN notes reviewed Mode of arrival: ambulatory Limitations: no limitations - History of Present Illness Initial comments: 62-year-old female with no significant past medical history presents to the emergency department with a chief complaint of requesting psychiatric evaluation. She was reporting multiple delusions such as "her phone call stating $[phone] million, and that someone, one person is also get her. "She is unsure from this person is. She reports that she "had a breech of security in her phone. "She denies any visual or auditory hallucinations. She denies any suicidal or homicidal ideation. She denies this ever happening to her before. She reports that she has been taking her medications as prescribed. She denies any recent alcohol, illicit drug use. - Related Data Home Medications Medication Instructions Recorded Confirmed Omeprazole 20 mg PO DAILY 04/05/18 05/08/22 INSULIN LISPRO (HumaLOG) [humaLOG] 20 units SQ AC-TID 05/08/22 05/08/22 Insulin Glargine [Lantus Vial] 50 unit SQ HS 05/08/22 05/08/22 Previous Rx's Medication Instructions Recorded ARIPiprazole [Abilify] 10 mg PO HS #30 tab 10/25/21 Yxwaok-Ytfwoxue-Ubeyzez [Zenpep 10] 4 cap PO AC-TID #120 cap 10/25/21 QUEtiapine [SEROquel] 100 mg PO HS #30 tab 10/25/21 hydrOXYzine pamoate [hydrOXYzine 25 mg PO BID PRN #30 cap 10/25/21 PAMOATE] lamoTRIgine 200 mg PO DAILY 30 Days #30 tab 10/25/21 metFORMIN HCL [Glucophage] 850 mg PO BID #60 tab 10/25/21 Cephalexin [Keflex] 500 mg PO Q6HR 1 Days #40 cap 05/09/22 Allergies Allergy/AdvReac Type Severity Reaction Status Date / Time No Known Allergies Allergy Verified 09/30/22 20:22 Review of Systems ROS Statement: Those systems with pertinent positive or pertinent negative responses have been documented in the HPI. ROS Other: All systems not noted in ROS Statement are negative. Past Medical History Past Medical History: Cancer, CVA/TIA, Diabetes Mellitus, GERD/Reflux, Hyperlipidemia, Renal Disease Additional Past Medical History / Comment(s): Chronic pancreatitis,wt loss of 60-70 pounds over last year, HEART MURMUR AND ENLARGED AORTA, tia's, colon polyps-benign, "blood pressure tends to run low ended up in ICU" pt states recent UTI treated,merle neuropathy,throat CA at age 6,chronic bronchitis recent fall with left rib fractures, hematoma to right forehead History of Any Multi-Drug Resistant Organisms: MRSA Date of last positivie culture/infection: 10/20/21 MDRO Source:: Head Past Surgical History: Appendectomy Additional Past Surgical History / Comment(s): CYST REMOVED FROM NECK. RT 3RD/4TH FINGER PARTIAL AMP D/T INJURY, lt ureter stent. COLONOSCOPY/POLYPECTOMY Past Anesthesia/Blood Transfusion Reactions: Motion Sickness, Postoperative Nausea & Vomiting (PONV) Past Psychological History: Anxiety, Bipolar, Depression, PTSD, Schizophrenia Smoking Status: Current every day smoker Past Alcohol Use History: None Reported Past Drug Use History: Methamphetamine, Prescription Drug Abuse - Past Family History Father Family Medical History: Liver Disease Additional Family Medical History / Comment(s): Father at age 78 from cirrhosis of the liver. Mother Family Medical History: No Reported History Additional Family Medical History / Comment(s): Mother is alive in her 80s Sister(s) Family Medical History: Coronary Artery Disease (CAD) Additional Family Medical History / Comment(s): Patient has 2 sisters and one has from an overdose. She has 1 brother with no major medical problems. 4cm aortic aneurysm General Exam Limitations: no limitations General appearance: alert, in no apparent distress, anxious Head exam: Present: atraumatic, normocephalic, normal inspection Eye exam: Present: normal appearance, PERRL, EOMI. Absent: scleral icterus, conjunctival injection, periorbital swelling ENT exam: Present: normal exam, mucous membranes moist Neck exam: Present: normal inspection. Absent: tenderness, meningismus, lymphadenopathy Respiratory exam: Present: normal lung sounds bilaterally. Absent: respiratory distress, wheezes, rales, rhonchi, stridor Cardiovascular Exam: Present: regular rate, normal rhythm, normal heart sounds. Absent: systolic murmur, diastolic murmur, rubs, gallop, clicks GI/Abdominal exam: Present: soft, normal bowel sounds. Absent: distended, tende rness, guarding, rebound, rigid Extremities exam: Present: normal inspection, full ROM, normal capillary refill. Absent: tenderness, pedal edema, joint swelling, calf tenderness Back exam: Present: normal inspection Neurological exam: Present: alert, oriented X3, CN II-XII intact Psychiatric exam: Present: normal affect, normal mood Skin exam: Present: warm, dry, intact, normal color. Absent: rash Course Vital Signs 09/30/22 09/30/22 20:22 22:07 Temperature 97.8 F 99.5 F Pulse Rate 105 H 86 Respiratory 16 16 Rate Blood Pressure 143/90 123/84 O2 Sat by Pulse 98 98 Oximetry - Reevaluation(s) Reevaluation #1: 09/30/22 21:11 Spoke with JASON Haywood RN who spoke with [facility] and Psychiatrist who will give the patient injection medication and for patient to be discharged back to [facility]. 10/01/22 22:30 patient discharged without completion of discharge paperwork. Medical Decision Making - Medical Decision Making Was pt. sent in by a medical professional or institution (, PA, CALL WORKER, urgent care, hospital, or fpc...) When possible be specific @ -[No] Did you speak to anyone other than the patient for history (EMS, parent, family, police, friend...)? What history was obtained from this source @ -[No] Did you review nursing and triage notes (agree or disagree)? Why? @ -[I reviewed and agree with nursing and triage notes] Were old charts reviewed (outside hosp., previous admission, EMS record, old EKG, old radiological studies, urgent care reports/EKG's, fpc records)? Report findings @ -[No old charts were reviewed] Differential Diagnosis (chest pain, altered mental status, abdominal pain women, abdominal pain men, vaginal bleeding, weakness, fever, dyspnea, syncope, headache, dizziness, GI bleed, back pain, seizure, CVA, palpatations, mental health, musculoskeletal)? @ -[not applicable] EKG interpreted by me (3pts min.). @ -[As above] X-rays interpreted by me (1pt min.). @ -[None done] CT interpreted by me (1pt min.). @ -[None done] U/S interpreted by me (1pt. min.). @ -[None done] What testing was considered but not performed or refused? (CT, X-rays, U/S, labs)? Why? @ -[None] What meds were considered but not given or refused? Why? @ -[None] Did you discuss the management of the patient with other professionals (professionals i.e. DrRadha, PA, CALL WORKER, lab, RT, psych nurse, social welfare administrator, ophthalmic medical assistant, teacher, correctional officer lieutenant, lining caser)? Give summary @ -[No] Was smoking cessation discussed for >3mins.? @ -[No] Was critical care preformed (if so, how long)? @ -[No] Were there social determinants of health that impacted care today? How? (Homelessness, low income, unemployed, alcoholism, drug addiction, transportation, low edu. Level, literacy, decrease access to med. care, skilled nursing, rehab)? @ -[No] Was there de-escalation of care discussed even if they declined (Discuss DNR or withdrawal of care, Hospice)? DNR status @ -[No] What co-morbidities impacted this encounter? (DM, HTN, Smoking, COPD, CAD, Cancer, CVA, ARF, Chemo, Hep., AIDS, mental health diagnosis, sleep apnea, morbid obesity)? @ -[None] Was patient admitted / discharged? Hospital course, mention meds given and route, prescriptions, significant lab abnormalities, going to OR and other pertinent info. @ -Discharged. This is a 62 year old male who presents to the emergency department with psychiatric evaluation. Patient for history and physical exam performed while in the emergency department. Physical exam is essentially unremarkable, heart rate regular rate and rhythm, lung auscultation bilaterally, soft and non-tender. She was evaluated by Quynh, the EPS RN who belives she is stable for discharge and to return to the [facility]. I discussed the results in detail with the patient verbalized understanding and all questions and concerns were addressed. The patient was discharged in stable condition. They were strongly encouraged to follow up with her primary care physician in 1-2 days. Case discussed with Dr. Proctor who agrees with plan of care Undiagnosed new problem with uncertain prognosis? @ -[No] Drug Therapy requiring intensive monitoring for toxicity (Heparin, Nitro, Insulin, Cardizem)? @ -[No] Were any procedures done? @ -[No] Diagnosis/symptom? @ - psychiatric evaluation - delusions - medication non-compliance Acute, or Chronic, or Acute on Chronic? @ -acute Uncomplicated (without systemic symptoms) or Complicated (systemic symptoms)? @ -uncomplicated Side effects of treatment? @ -[No] Exacerbation, Progression, or Severe Exacerbation? @ -[No] Poses a threat to life or bodily function? How? (Chest pain, USA, PA, pneumonia, PE, COPD, DKA, ARF, appy, cholecystitis, CVA, Diverticulitis, Homicidal, Suicidal, threat to staff... and all critical care pts) @ -low likelihood - Lab Data Lab Results 09/30/22 09/30/22 Range/Units 21:09 21:10 Urine Opiates Screen Not Detected (NotDetected) Ur Oxycodone Screen Not Detected (NotDetected) Urine Methadone Screen Not Detected (NotDetected) Ur Propoxyphene Screen Not Detected (NotDetected) Ur Barbiturates Screen Not Detected (NotDetected) U Tricyclic Antidepress Not Detected (NotDetected) Ur Phencyclidine Scrn Not Detected (NotDetected) Ur Amphetamines Screen Not Detected (NotDetected) U Methamphetamines Scrn Not Detected (NotDetected) U Benzodiazepines Scrn Detected H (NotDetected) Urine Cocaine Screen Not Detected (NotDetected) U Marijuana (THC) Screen Not Detected (NotDetected) Coronavirus (PCR) Not Detected (Not Detectd) Disposition Clinical Impression: Delusion Disposition: HOME SELF-CARE Condition: Stable Instructions (If sedation given, give patient instructions): Psychotic Disorder (ED) Additional Instructions: Please return to the nearest emergency department if symptoms worsen or persist Is patient prescribed a controlled substance at d/c from ED?: No Referrals: Cecilia Cortez MD [Primary Care Provider] - 1-2 days Time of Disposition: 01:35
[2022-09-30 21:54] LABS: Amphetamine Screen,Urine Not Detected (NotDetected); Barbiturate Screen,Urine Not Detected (NotDetected); Benzodiazepines Screen,Urine Detected (NotDetected); Cocaine Screen,Urine Not Detected (NotDetected); Methadone Screen, Urine Not Detected (NotDetected); Opiate Screen,Urine Not Detected (NotDetected); Oxycodone Screen, Urine Not Detected (NotDetected); Phencyclidine Screen,Urine Not Detected (NotDetected); Tricyclic Antidepressant,Urine Not Detected (NotDetected); Urn Cannabinoid Scrn Not Detected (NotDetected)
[2022-09-30] MEDS ORDERED: LORazepam 2 MG/ML INJ IM STA (22:00)
[2022-09-30] MEDS ORDERED: fluPHENAZine DECANOATE 25 MG/ML 5ML MDV IM ONE (22:07)
[2022-09-30 22:08] VITALS: BP 123/84; PULSE 86; TEMP 99.5
== END 2022-09-30 22:37 | disposition home or self-care (01) ==
LOC: EC 20:13
DX: F22 Delusional disorders (principal); E11.40 Type 2 diabetes mellitus with diabetic neuropathy, unspecified; E78.5 Hyperlipidemia, unspecified; K21.9 Gastro-esophageal reflux disease without esophagitis; F17.200 Nicotine dependence, unspecified, uncomplicated; F15.10 Other stimulant abuse, uncomplicated; Z20.822 Contact with and (suspected) exposure to COVID-19; Z79.4 Long term (current) use of insulin; Z79.899 Other long term (current) drug therapy
CPT/HCPCS: 80306; 87635; 99285; J2060; J2680

== ENCOUNTER 2022-10-01 19:49 | Emergency (ER) | payer OTHER ==
[2022-10-01 19:54] VITALS: BP 128/99; PULSE 102; RESP 18; TEMP 97.9
[2022-10-01] MEDS ORDERED: LORazepam 2 MG/ML INJ IM STA (20:06)
--- NOTE | 2022-10-01 20:06 | ED ---
General Adult HPI - General Chief complaint: Psychiatric Symptoms Stated complaint: Mental Health Time Seen by Provider: 10/01/22 19:56 Source: patient, RN notes reviewed Mode of arrival: ambulatory Limitations: no limitations - History of Present Illness Initial comments: 62-year-old female with the psychiatric significant past medical history presents the emergency department with a chief complaint of psychiatric evaluation. Patient was here yesterday and seen for the same. [facility] a [facility] and reports increased aggression towards staff and other residents. Patient is denying any suicidal or homicidal ideation at this time. She denies any visual or auditory hallucinations. She denies any recent alcohol or illicit drug use. - Related Data Home Medications Medication Instructions Recorded Confirmed Omeprazole 20 mg PO DAILY 04/05/18 05/08/22 INSULIN LISPRO (HumaLOG) [humaLOG] 20 units SQ AC-TID 05/08/22 05/08/22 Insulin Glargine [Lantus Vial] 50 unit SQ HS 05/08/22 05/08/22 Previous Rx's Medication Instructions Recorded ARIPiprazole [Abilify] 10 mg PO HS #30 tab 10/25/21 Ltvbkg-Eomaucqi-Vwzhuxh [Zenpep 10] 4 cap PO AC-TID #120 cap 10/25/21 QUEtiapine [SEROquel] 100 mg PO HS #30 tab 10/25/21 hydrOXYzine pamoate [hydrOXYzine 25 mg PO BID PRN #30 cap 10/25/21 PAMOATE] lamoTRIgine 200 mg PO DAILY 30 Days #30 tab 10/25/21 metFORMIN HCL [Glucophage] 850 mg PO BID #60 tab 10/25/21 Cephalexin [Keflex] 500 mg PO Q6HR 1 Days #40 cap 05/09/22 Allergies Allergy/AdvReac Type Severity Reaction Status Date / Time No Known Allergies Allergy Verified 10/01/22 19:50 Review of Systems ROS Statement: Those systems with pertinent positive or pertinent negative responses have been documented in the HPI. ROS Other: All systems not noted in ROS Statement are negative. Past Medical History Past Medical History: Cancer, CVA/TIA, Diabetes Mellitus, GERD/Reflux, Hyperlipidemia, Renal Disease Additional Past Medical History / Comment(s): Chronic pancreatitis,wt loss of 60-70 pounds over last year, HEART MURMUR AND ENLARGED AORTA, tia's, colon polyps-benign, "blood pressure tends to run low ended up in ICU" pt states recent UTI treated,merle neuropathy,throat CA at age 6,chronic bronchitis recent fall with left rib fractures, hematoma to right forehead History of Any Multi-Drug Resistant Organisms: MRSA Date of last positivie culture/infection: 10/20/21 MDRO Source:: Head Past Surgical History: Appendectomy Additional Past Surgical History / Comment(s): CYST REMOVED FROM NECK. RT 3RD/4TH FINGER PARTIAL AMP D/T INJURY, lt ureter stent. COLONOSCOPY/POLYPECTOMY Past Anesthesia/Blood Transfusion Reactions: Motion Sickness, Postoperative Nausea & Vomiting (PONV) Past Psychological History: Anxiety, Bipolar, Depression, PTSD, Schizophrenia Smoking Status: Current every day smoker Past Alcohol Use History: None Reported Past Drug Use History: Methamphetamine, Prescription Drug Abuse - Past Family History Father Family Medical History: Liver Disease Additional Family Medical History / Comment(s): Father at age 78 from cirrhosis of the liver. Mother Family Medical History: No Reported History Additional Family Medical History / Comment(s): Mother is alive in her 80s Sister(s) Family Medical History: Coronary Artery Disease (CAD) Additional Family Medical History / Comment(s): Patient has 2 sisters and one has from an overdose. She has 1 brother with no major medical problems. 4cm aortic aneurysm General Exam Limitations: no limitations General appearance: alert, in no apparent distress, anxious, other (Patient is agitated and aggressive with staff) Head exam: Present: atraumatic, normocephalic, normal inspection Eye exam: Present: normal appearance, PERRL, EOMI. Absent: scleral icterus, conjunctival injection, periorbital swelling ENT exam: Present: normal exam, mucous membranes moist Neck exam: Present: normal inspection. Absent: tenderness, meningismus, lymphadenopathy Respiratory exam: Present: normal lung sounds bilaterally. Absent: respiratory distress, wheezes, rales, rhonchi, stridor Cardiovascular Exam: Present: regular rate, normal rhythm, normal heart sounds. Absent: systolic murmur, diastolic murmur, rubs, gallop, clicks GI/Abdominal exam: Present: soft, normal bowel sounds. Absent: distended, tenderness, guarding, rebound, rigid Extremities exam: Present: normal inspection, full ROM, normal capillary refill. Absent: tenderness, pedal edema, joint swelling, calf tenderness Back exam: Present: normal inspection Neurological exam: Present: alert, oriented X3, CN II-XII intact Psychiatric exam: Present: normal affect, normal mood Skin exam: Present: warm, dry, intact, normal color. Absent: rash Course Vital Signs 10/01/22 19:50 Temperature 97.9 F Pulse Rate 102 H Respiratory 18 Rate Blood Pressure 128/99 O2 Sat by Pulse 98 Oximetry Medical Decision Making - Medical Decision Making Was pt. sent in by a medical professional or institution (DANNY Thakkar, AGITATOR OPERATOR, urgent care, hospital, or shelter...) When possible be specific @ -[No] Did you speak to anyone other than the patient for history (EMS, parent, family, police, friend...)? What history was obtained from this source @ -[No] Did you review nursing and triage notes (agree or disagree)? Why? @ -[I reviewed and agree with nursing and triage notes] Were old charts reviewed (outside hosp., previous admission, EMS record, old EKG, old radiological studies, urgent care reports/EKG's, shelter records)? Report findings @ -[No old charts were reviewed] Differential Diagnosis (chest pain, altered mental status, abdominal pain women, abdominal pain men, vaginal bleeding, weakness, fever, dyspnea, syncope, headache, dizziness, GI bleed, back pain, seizure, CVA, palpatations, mental health, musculoskeletal)? @ -[not applicable] EKG interpreted by me (3pts min.). @ -[As above] X-rays interpreted by me (1pt min.). @ -[None done] CT interpreted by me (1pt min.). @ -[None done] U/S interpreted by me (1pt. min.). @ -[None done] What testing was considered but not performed or refused? (CT, X-rays, U/S, labs)? Why? @ -[None] What meds were considered but not given or refused? Why? @ -[None] Did you discuss the management of the patient with other professionals (professionals i.e. DANNY Thakkar, AGITATOR OPERATOR, lab, RT, psych nurse, social science research assistant, charcoal unloader, teacher, diplomatic officer, case work aide)? Give summary @ -[No] Was smoking cessation discussed for >3mins.? @ -[No] Was critical care preformed (if so, how long)? @ -[No] Were there social determinants of health that impacted care today? How? (Homelessness, low income, unemployed, alcoholism, drug addiction, transportation, low edu. Level, literacy, decrease access to med. care, penitentiary, rehab)? @ -[No] Was there de-escalation of care discussed even if they declined (Discuss DNR or withdrawal of care, Hospice)? DNR status @ -[No] What co-morbidities impacted this encounter? (DM, HTN, Smoking, COPD, CAD, Cancer, CVA, ARF, Chemo, Hep., AIDS, mental health diagnosis, sleep apnea, morbid obesity)? @ -[None] Was patient admitted / discharged? Hospital course, mention meds given and route, prescriptions, significant lab abnormalities, going to OR and other pertinent info. @ -Discharged. This is a 62 year male who presents to the emergency department with psychiatric evaluation. Patient had a thorough history and physical exam performed physical exam is essentially unremarkable heart rate regular rate and rhythm, lungs clear to auscultation bilaterally abdomen is soft and non-tender. Patient was evaluated by EPS PENNY Haywood who believes the patient is stable enough for discharge. I discussed results in detail with the patient's mother who verbalized understanding and all questions were addressed. Return precautions were discussed at length. She was encouraged to follow up with her molder automobile carpets in 1-2 days. Case discussed with YAYA Rutledge who agrees with plan of care Undiagnosed new problem with uncertain prognosis? @ -[No] Drug Therapy requiring intensive monitoring for toxicity (Heparin, Nitro, Insulin, Cardizem)? @ -[No] Were any procedures done? @ -[No] Diagnosis/symptom? @ -psychiatric evaluation Acute, or Chronic, or Acute on Chronic? @ -[acute Uncomplicated (without systemic symptoms) or Complicated (systemic symptoms)? @ -uncomplicated Side effects of treatment? @ -[No] Exacerbation, Progression, or Severe Exacerbation? @ -[No] Poses a threat to life or bodily function? How? (Chest pain, USA, ID, pneumonia, PE, COPD, DKA, ARF, appy, cholecystitis, CVA, Diverticulitis, Homicidal, Suicidal, threat to staff... and all critical care pts) @ -low likelihood Disposition Clinical Impression: Noncompliance with medication regimen, Acute psychosis Disposition: HOME SELF-CARE Condition: Stable Additional Instructions: These return to the nearest emergency department if symptoms worsen or persist Is patient prescribed a controlled substance at d/c from ED?: No Referrals: Cecilia Cortez MD [Primary Care Provider] - 1-2 days Time of Disposition: 20:06
== END 2022-10-01 20:51 | disposition home or self-care (01) ==
LOC: EC 19:49
DX: F23 Brief psychotic disorder (principal); E11.40 Type 2 diabetes mellitus with diabetic neuropathy, unspecified; E78.5 Hyperlipidemia, unspecified; K21.9 Gastro-esophageal reflux disease without esophagitis; F17.200 Nicotine dependence, unspecified, uncomplicated; F15.90 Other stimulant use, unspecified, uncomplicated; Z79.4 Long term (current) use of insulin; Z79.899 Other long term (current) drug therapy; Z86.73 Personal history of transient ischemic attack (TIA), and cerebral infarction without residual deficits; Z91.199 Patient's noncompliance with other medical treatment and regimen due to unspecified reason
CPT/HCPCS: 82075; 99284; 96372; J2060

== ENCOUNTER 2022-10-02 15:09 | Inpatient (IN) | payer MEDICAID, OTHER ==
[2022-10-02] MEDS ORDERED: ACETAMINOPHEN TAB 325 MG TAB PO PRN (15:36)
[2022-10-02] MEDS ORDERED: MAG HYDROX/AL HYDROX/SIMETH 30 ML CUP PO PRN (15:36)
[2022-10-02] MEDS ORDERED: MAGNESIUM HYDROXIDE 2,400 MG/10 ML CUP PO PRN (15:36)
[2022-10-02] MEDS ORDERED: flUPHENAZine 2.5 MG/ML (MDV) 10 ML VIAL IM PRN (15:38)
[2022-10-02] MEDS ORDERED: diphenhydrAMINE 25 MG CAP PO PRN (15:38)
[2022-10-02] MEDS ORDERED: diphenhydrAMINE 50 MG/ML 1 ML VIAL IM PRN (15:38)
[2022-10-02] MEDS: INSULIN ASPART (NovoLOG) 100 UNIT/ML VIAL SQ SCH (18:37)
[2022-10-02] MEDS: LORazepam 1 MG TAB PO SCH ×3 (18:40→20:50)
[2022-10-02] MEDS: LIPASE 20,000/PROTEASE 63,000/AMYLASE 84,000 PO SCH (18:59)
[2022-10-02] MEDS: INSULIN DETEMIR (LEVEMIR) 100 UNIT/ML SYR SQ SCH (20:50)
[2022-10-02] MEDS: hydrOXYzine pamoate 25 MG CAP PO SCH (20:50)
[2022-10-02] MEDS: OLANZapine 10 MG TAB PO SCH ×2 (20:50→21:29)
[2022-10-02] MEDS: metFORMIN 850 MG TAB PO SCH (20:50)
[2022-10-02 20:56] LABS: Glucose,Whole Blood 387 mg/dL (70-110)
[2022-10-03 07:42] LABS: Glucose,Whole Blood 83 mg/dL (70-110)
[2022-10-03] MEDS: INSULIN ASPART (NovoLOG) 100 UNIT/ML VIAL SQ SCH ×4 (08:31→18:37)
[2022-10-03] MEDS: lamoTRIgine 100 MG TAB PO SCH (08:42)
[2022-10-03] MEDS: LIPASE 20,000/PROTEASE 63,000/AMYLASE 84,000 PO SCH ×3 (08:42→18:46)
[2022-10-03] MEDS: LORazepam 1 MG TAB PO SCH ×4 (08:42→20:10)
[2022-10-03] MEDS: PANTOPRAZOLE 40 MG TABLET PO SCH (08:42)
[2022-10-03] MEDS: NICOTINE 14MG/24HR PATCH TRANSDERM SCH (08:43)
[2022-10-03] MEDS: metFORMIN 850 MG TAB PO SCH ×2 (08:43→20:10)
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
[2022-10-03] MEDS: LITHIUM CARBONATE ER 450 MG TABLET.ER PO SCH ×2 (09:32→20:10)
[2022-10-03 11:39] LABS: African American GFR (CKD) >90 (>60 ml/min/1.73 sqM); Anion Gap 10 mmol/L; Blood Urea Nitrogen 18 mg/dL (7-17); Calcium 9.3 mg/dL (8.4-10.2); Carbon Dioxide 18 mmol/L (22-30); Chloride 109 mmol/L (98-107); Glucose 78 mg/dL (74-99); Magnesium 1.5 mg/dL (1.6-2.3); Non-African American GFR(CKD) 88 (>60 ml/min/1.73 sqM); Potassium 4.5 mmol/L (3.5-5.1); Sodium 137 mmol/L (137-145)
[2022-10-03 12:15] LABS: HGB 10.9 gm/dL (11.4-16.0); MCH 29.9 pg (25.0-35.0); MCHC 33.1 g/dL (31.0-37.0); MCV 90.4 fL (80.0-100.0); Mean Platelet Volume 7.4; Platelet Count 383 k/uL (150-450); RBC 3.65 m/uL (3.80-5.40); RDW 14.2 % (11.5-15.5); WBC 11.6 k/uL (3.8-10.6)
[2022-10-03 12:52] LABS: Glucose,Whole Blood 67 mg/dL (70-110)
[2022-10-03 13:52] LABS: Glucose,Whole Blood 170 mg/dL (70-110)
[2022-10-03 13:58] LABS: Lymphocytes # (M) 6.84 k/uL (1.0-4.8); Monocytes # (M) 0.46 k/uL (0-1.0); Neutrophils # (M) 4.41 k/uL (1.3-7.7); Neutrophils % (M) 38 %; Nucleated Red Blood Cells 0 /100 WBC (0-0); Total Cells Counted 200
[2022-10-03 14:01] LABS: RBC Morphology Normal
--- NOTE | 2022-10-03 15:09 | P.MDCNMH ---
History of Present Illness H&P Date: 10/03/22 This is a 62-year-old female who presented to the emergency department with psychiatric evaluation as patient has past medical history of anxiety/bipolar/depression with PTSD and schizophrenia. Patient reports she follows with a Dr. Chu in the outpatient setting with a past medical history of chronic pancreatitis, CVA/TIA, diabetes mellitus, GERD, hyperlipidemia, renal disease, throat cancer at age 6, chronic bronchitis. Patient reports she lives at a halfway and was petitioned for agitation and sent here for further psychiatric evaluation. Patient denies any suicidal ideation or thoughts of wanting to harm herself or others. Patient reports she has been taking her medications and has been checking her blood sugars as scheduled. Home medications reviewed and resumed and recommend insulin sliding scale along with Accu-Cheks before meals and at bedtime and would recommend some basic labs including CBC, BMP, magnesium. Patient reports she is fatigued and denies chest pain, shortness of breath, or nausea vomiting. Patient reports her blood sugar was slightly lower today in the 60s and awaiting to reevaluate. Repeat Accu- Chek is 170. Review Of Systems: Constitutional: No fever, no chills, no night sweats. No weight change. No weakness, fatigue or lethargy. No daytime sleepiness. EENT: No headache. No blurred vision or double vision, no loss of vision. No loss of Hearing, no ringing in the ears, no dizziness. No nasal drainage or congestion. No epistaxis. No sore throat. Lungs: No shortness of breath, cough, no sputum production. No wheezing. Cardiovascular: No chest pain, no lower extremity edema. No palpitations. No paroxysmal nocturnal dyspnea. No orthopnea. No lightheadedness or dizziness. No syncopal episodes. Abdominal: No abdominal pain. No nausea, vomiting. No diarrhea. No constipation. No bloody or tarry stools.. No loss of appetite. Genitourinary: No dysuria, increased frequency, urgency. No urinary retention. Musculoskeletal: No myalgias. No muscle weakness, no gait dysfunction, no frequent falls. No back pain. No neck pain. Integumentary: No wounds, no lesions. No rash or pruritus. No unusual bruising. No change in hair or nails. Neurologic: No aphasia. No facial droop. No change in mentation. No head injury. No headache. No paralysis. No paresthesia. Psychiatric: Reports history of anxiety and depression with bipolar and PTSD. No mood swings. Endocrine: No abnormal blood sugars. No weight change. No excessive sweating or thirst. No cold intolerance. PHYSICAL EXAMINATION: GENERAL: The patient is alert and oriented x4, thin built, appears older than stated age HEENT: Pupils are round and equally reacting to light. EOMI. no scleral icterus. No conjunctival pallor. Normocephalic, atraumatic. No pharyngeal erythema. No thyromegaly. CARDIOVASCULAR: S1 and S2 muffled PULMONARY: diminished breath sounds bilaterally with no wheezing or rhonchi noted. ABDOMEN: soft. Nontender on exam. non-distended, normoactive bowel sounds. No palpable organomegaly. MUSCULOSKELETAL: No joint swelling or deformity. EXTREMITIES: No cyanosis, clubbing, or pedal edema. NEUROLOGICAL: Gross neurological examination did not reveal any focal deficits. SKIN: No rashes. Assessment: Manic episode with acute psychosis Anxiety/depression/bipolar with PTSD and schizophrenia Diabetes mellitus, type II, insulin-dependent GERD Hyperlipidemia Hypomagnesemia History of chronic pancreatitis History of throat cancer at age 6 chronic bronchitis Continued ongoing nicotine dependence Polysubstance abuse GI prophylaxis Full code Plan: Recommend to continue with current medications and management per psychiatric services. Patient reports she was petitioned as she lives at a halfway with reported increased agitation and sent here for further psychiatric evaluation Patient reports she was at [facility] and they called for psychiatric evaluation and patient reports she has "firing them" Patient reports she does not follow with Dr. Chandler and follows with Dr. Chu in the outpatient setting Recommend repeat labs in the a.m. we will start the patient on magnesium oxide tablets as magnesium was 1.6 today We will continue to follow with psychiatric services. Thank you kindly for this consultation The impression and plan of care has been dictated by Racheal Barr, nurse practitioner as directed. Dr. Aravind MD I have performed a history and examination and MDM of this patient, discussed the same with the dictator, and agree with the dictator's assessment and plan as written ,documented as a scribe. Based on total visit time, I have performed more than 50% of the visit. Any additional findings or plans will be noted. Past Medical History Past Medical History: Cancer, CVA/TIA, Diabetes Mellitus, GERD/Reflux, Hyperlipidemia, Renal Disease Additional Past Medical History / Comment(s): Chronic pancreatitis,wt loss of 60-70 pounds over last year, HEART MURMUR AND ENLARGED AORTA, tia's, colon chu yps-benign, "blood pressure tends to run low ended up in ICU" pt states recent UTI treated,merle neuropathy,throat CA at age 6,chronic bronchitis recent fall with left rib fractures, hematoma to right forehead History of Any Multi-Drug Resistant Organisms: MRSA Date of last positivie culture/infection: 10/20/21 MDRO Source:: Head Past Surgical History: Appendectomy Additional Past Surgical History / Comment(s): CYST REMOVED FROM NECK. RT 3RD/4TH FINGER PARTIAL AMP D/T INJURY, lt ureter stent. COLONOSCOPY/POLYPECTOMY Past Anesthesia/Blood Transfusion Reactions: Motion Sickness, Postoperative Nausea & Vomiting (PONV) Past Psychological History: Anxiety, Bipolar, Depression, PTSD, Schizophrenia Smoking Status: Current every day smoker Past Alcohol Use History: None Reported Past Drug Use History: Methamphetamine, Prescription Drug Abuse - Past Family History Father Family Medical History: Liver Disease Additional Family Medical History / Comment(s): Father at age 78 from cirrhosis of the liver. Mother Family Medical History: No Reported History Additional Family Medical History / Comment(s): Mother is alive in her 80s Sister(s) Family Medical History: Coronary Artery Disease (CAD) Additional Family Medical History / Comment(s): Patient has 2 sisters and one has from an overdose. She has 1 brother with no major medical problems. 4 cm aortic aneurysm Medications and Allergies Home Medications Medication Instructions Recorded Confirmed Type Omeprazole 20 mg PO DAILY 04/05/18 05/08/22 History ARIPiprazole [Abilify] 10 mg PO HS #30 tab 10/25/21 05/08/22 Rx Aafzvy-Bbxkonwq-Afysnti [Zenpep 10] 4 cap PO AC-TID #120 cap 10/25/21 05/08/22 Rx QUEtiapine [SEROquel] 100 mg PO HS #30 tab 10/25/21 05/08/22 Rx hydrOXYzine pamoate [hydrOXYzine 25 mg PO BID PRN #30 cap 10/25/21 05/08/22 Rx PAMOATE] lamoTRIgine 200 mg PO DAILY 30 Days #30 tab 10/25/21 05/08/22 Rx metFORMIN HCL [Glucophage] 850 mg PO BID #60 tab 10/25/21 05/08/22 Rx INSULIN LISPRO (HumaLOG) [humaLOG] 20 units SQ AC-TID 05/08/22 05/08/22 History Insulin Glargine [Lantus Vial] 50 unit SQ HS 05/08/22 05/08/22 History Cephalexin [Keflex] 500 mg PO Q6HR 1 Days #40 cap 05/09/22 Rx Allergies Allergy/AdvReac Type Severity Reaction Status Date / Time No Known Allergies Allergy Verified 10/02/22 18:22 Physical Exam Vitals: Vital Signs Temp Pulse Resp BP Pulse Ox 10/03/22 01:03 98.6 F 107 H 18 119/69 95 10/02/22 18:22 97.3 F L 96 18 151/88 100 Intake and Output 10/02/22 10/03/22 10/03/22 22:59 06:59 14:59 Other: Weight 60.781 kg Cranial Nerve Examination - Cranial Nerves Cranial Nerve I- Olfactory: Intact Cranial Nerve II- Optic: Intact Cranial Nerve III- Oculomotor: Intact Cranial Nerve IV- Trochlear: Intact Cranial Nerve V- Trigeminal: Intact Cranial Nerve - Abducens: Intact Cranial Nerve VII- Facial: Intact Cranial Nerve VIII- Auditory: Intact Cranial Nerve IX- Glossopharyngeal: Intact Cranial Nerve X- Vagus: Intact Cranial Nerve XI- Accessory: Intact Cranial Nerve XII- Hypoglossal: Intact Results CBC & Chem 7: 10/03/22 10:50 10/03/22 10:50 Labs: Abnormal Lab Results - Last 24 Hours (Table) 10/02/22 Range/Units 20:54 POC Glucose (mg/dL) 387 H (70-110) mg/dL Assessment and Plan Time with Patient: Less than 30
[2022-10-03] MEDS: MAGNESIUM OXIDE 400 MG TAB PO SCH ×2 (16:27→20:10)
[2022-10-03 18:23] LABS: Glucose,Whole Blood 251 mg/dL (70-110)
[2022-10-03 20:04] LABS: Glucose,Whole Blood 289 mg/dL (70-110)
[2022-10-03] MEDS: hydrOXYzine pamoate 25 MG CAP PO SCH (20:10)
[2022-10-03] MEDS: INSULIN DETEMIR (LEVEMIR) 100 UNIT/ML SYR SQ SCH (20:11)
[2022-10-03] MEDS: OLANZapine 10 MG TAB PO SCH (20:53)
[2022-10-04 03:29] LABS: Glucose,Whole Blood 53 mg/dL (70-110)
[2022-10-04 03:46] LABS: Glucose,Whole Blood 54 mg/dL (70-110)
[2022-10-04 04:02] LABS: Glucose,Whole Blood 45 mg/dL (70-110)
[2022-10-04] MEDS ORDERED: DEXTROSE 50% SYRINGE 50 ML IVP STA (04:14)
[2022-10-04 04:16] LABS: Glucose,Whole Blood 64 mg/dL (70-110)
[2022-10-04 04:30] LABS: Glucose,Whole Blood 73 mg/dL (70-110)
[2022-10-04 05:00] LABS: Glucose,Whole Blood 191 mg/dL (70-110)
[2022-10-04 06:15] LABS: Glucose,Whole Blood 134 mg/dL (70-110)
[2022-10-04 06:27] VITALS: PULSE 87
[2022-10-04 07:47] LABS: Glucose,Whole Blood 213 mg/dL (70-110)
[2022-10-04] MEDS: LIPASE 20,000/PROTEASE 63,000/AMYLASE 84,000 PO SCH ×2 (08:20→13:17)
[2022-10-04] MEDS: lamoTRIgine 100 MG TAB PO SCH (08:21)
[2022-10-04] MEDS: MAGNESIUM OXIDE 400 MG TAB PO SCH (08:21)
[2022-10-04] MEDS: LITHIUM CARBONATE ER 450 MG TABLET.ER PO SCH (08:21)
[2022-10-04] MEDS: LORazepam 1 MG TAB PO SCH ×3 (08:21→13:23)
[2022-10-04] MEDS: metFORMIN 850 MG TAB PO SCH (08:21)
[2022-10-04] MEDS: PANTOPRAZOLE 40 MG TABLET PO SCH (08:21)
[2022-10-04] MEDS: INSULIN ASPART (NovoLOG) 100 UNIT/ML VIAL SQ SCH ×2 (08:38→12:18)
[2022-10-04] MEDS: NICOTINE 14MG/24HR PATCH TRANSDERM SCH (09:14)
[2022-10-04] MEDS ORDERED: ALBUTEROL HFA INHALER INHALATION PRN (09:51)
[2022-10-04] MEDS ORDERED: NICOTINE GUM (POLACRILEX) 2 MG GUM BUCCAL PRN (09:51)
[2022-10-04 11:43] LABS: Glucose,Whole Blood 50 mg/dL (70-110)
[2022-10-04 11:59] LABS: Glucose,Whole Blood 56 mg/dL (70-110)
[2022-10-04] MEDS ORDERED: ALBUTEROL HFA INHALER INHALATION SCH (12:00)
[2022-10-04 12:13] LABS: Glucose,Whole Blood 72 mg/dL (70-110)
--- NOTE | 2022-10-04 12:35 | P.PN ---
Progress Note - Text Progress Note Date: 10/04/22 S&O: Patient was seen in rounds. She had a hypoglycemic event earlier this morning was given some food and carbohydrate and is feeling better now. Continues to say that she is here for her own protection and is ready to go home. She said she is protected by the police and this hospital since she has lots of money and people may be coming after her for that. She had asked me several times this morning if I was ready to see her. She was assured each time she asked that I call her when I will be ready to see her. She has been talking been socializing with several patients and staff members. Has not been violent or bizarre except thinking saying that she has millions of dollars has 2 houses in [place]. She has been taking her medications as prescribed. Denies any adverse effects from medications This is a right ambulatory female with adequate hygiene she is friendly and cheerful. As noted earlier she has been asking to go home quite often. Her certificate of need/medical certificate was completed yesterday to be sent to the court for her to stay in the hospital. She continues to get hyperactive and talkative with pressured speech and flight of ideas. Mood is elated and affect is appropriate to the thought content. Denies hallucinations, suicide and homicide thoughts. Sensorium is clear. A&P: Continue lithium Zyprexa Lamictal and other medications along with groups and supervision.
[2022-10-04] MEDS ORDERED: GLUCAGON 1 MG/ML VIAL ONE (12:36)
[2022-10-04 12:46] LABS: Glucose,Whole Blood 55 mg/dL (70-110)
[2022-10-04 12:46] LABS: Glucose,Whole Blood 45 mg/dL (70-110)
[2022-10-04] MEDS ORDERED: DEXTROSE 4 GM CHEWABLE PO STA ×2 (12:49→12:51)
[2022-10-04] MEDS ORDERED: DEXTROSE 4 GM CHEWABLE PO PRN (12:49)
[2022-10-04] MEDS ORDERED: DEXTROSE 50% SYRINGE 50 ML IVP PRN ×2 (12:50)
[2022-10-04 12:56] LABS: Glucose,Whole Blood 57 mg/dL (70-110)
[2022-10-04 13:14] LABS: Glucose,Whole Blood 106 mg/dL (70-110)
[2022-10-04 13:37] LABS: Glucose,Whole Blood 60 mg/dL (70-110)
[2022-10-04 13:48] LABS: Glucose,Whole Blood 115 mg/dL (70-110)
[2022-10-04] MEDS ORDERED: GLUCAGON 1 MG/ML VIAL IM STA ×2 (13:49→13:55)
[2022-10-04 13:51] LABS: Glucose,Whole Blood 53 mg/dL (70-110)
[2022-10-04 14:03] LABS: Glucose,Whole Blood 109 mg/dL (70-110)
[2022-10-04 14:27] LABS: Glucose,Whole Blood 291 mg/dL (70-110)
[2022-10-04 14:52] LABS: Glucose,Whole Blood 401 mg/dL (70-110)
[2022-10-04 15:43] VITALS: BP 126/65; RESP 16; TEMP 97.1
[2022-10-04] MEDS ORDERED: INSULIN ASPART (NovoLOG) 100 UNIT/ML VIAL SQ SCH (17:30)
== END 2022-10-04 15:04 | disposition home or self-care (01) | DRG 753 ==
LOC: 3MHU 17:54
PROVIDERS: ADMIT Psychiatry & Neurology Psychiatry; ATTEND Psychiatry & Neurology Psychiatry
DX: F31.2 Bipolar disorder, current episode manic severe with psychotic features (principal); E11.649 Type 2 diabetes mellitus with hypoglycemia without coma; K21.9 Gastro-esophageal reflux disease without esophagitis; Z79.899 Other long term (current) drug therapy
CPT/HCPCS: 80048; 83735; 85025

== ENCOUNTER 2022-10-04 14:19 | Observation (INO) | payer MEDICAID, OTHER ==
[2022-10-04] MEDS ORDERED: NALOXONE 0.4 MG/ML 1 ML VIAL IV PRN (16:06)
[2022-10-04] MEDS ORDERED: IBUPROFEN 400 MG TAB PO PRN (16:06)
[2022-10-04] MEDS ORDERED: ONDANSETRON 4 MG/2 ML VIAL IVP PRN (16:06)
[2022-10-04] MEDS ORDERED: NICOTINE GUM (POLACRILEX) 2 MG GUM BUCCAL PRN (16:06)
[2022-10-04] MEDS ORDERED: DEXTROSE 50% SYRINGE 50 ML IVP PRN ×2 (16:11)
[2022-10-04] MEDS ORDERED: INSULIN ASPART (NovoLOG) 100 UNIT/ML VIAL SQ SCH (17:30)
[2022-10-04 17:47] LABS: Glucose,Whole Blood 185 mg/dL (70-110)
[2022-10-04] MEDS: SODIUM CHLORIDE 0.9% 1,000 ML IV SCH (17:47)
[2022-10-04] MEDS: INSULIN ASPART (NovoLOG) 100 UNIT/ML VIAL SQ SCH ×2 (17:54→20:48)
[2022-10-04 20:20] LABS: Glucose,Whole Blood 232 mg/dL (70-110)
[2022-10-04] MEDS: LIPASE 5,000/PROTEASE 17,000/AMYLASE 24,000 PO SCH (20:39)
[2022-10-04] MEDS: LORazepam 1 MG TAB PO SCH (20:48)
[2022-10-04] MEDS ORDERED: NON FORMULARY DRUG (Insulin Glargine,Hum.Rec.Anlog [Lantus Solostar Pen] 100 UNIT/ML Insul SQ SCH (21:00)
[2022-10-04] MEDS ORDERED: hydrOXYzine pamoate 25 MG CAP PO SCH (21:00)
[2022-10-04] MEDS ORDERED: INSULIN DETEMIR (LEVEMIR) 100 UNIT/ML SYR SQ SCH (21:00)
[2022-10-04] MEDS ORDERED: OLANZapine 10 MG TAB PO SCH (21:00)
[2022-10-04] MEDS: ACETAMINOPHEN TAB 325 MG TAB PO PRN (22:50)
[2022-10-04 23:08] LABS: Glucose,Whole Blood 87 mg/dL (70-110)
[2022-10-05 01:20] LABS: Glucose,Whole Blood 105 mg/dL (70-110)
[2022-10-05 02:54] LABS: Glucose,Whole Blood 140 mg/dL (70-110)
[2022-10-05] MEDS: SODIUM CHLORIDE 0.9% 1,000 ML IV SCH (06:38)
[2022-10-05 07:06] LABS: Glucose,Whole Blood 184 mg/dL (70-110)
[2022-10-05 07:51] VITALS: RESP 18; TEMP 97.8
[2022-10-05] MEDS ORDERED: lamoTRIgine 100 MG TAB PO SCH (09:00)
[2022-10-05 09:18] LABS: ALT 32 U/L (8-44); AST 24 U/L (13-35); Albumin 3.9 g/dL (3.8-4.9); Albumin/Globulin Ratio 1.77 (1.60-3.17); Alkaline Phosphatase 85 U/L (41-126); BUN/Creat Ratio 18.67 Ratio (12.00-20.00); Blood Urea Nitrogen 16.8 mg/dL (9.0-27.0); Calcium 9.4 mg/dL (8.7-10.3); Carbon Dioxide 21.3 mmol/L (20.0-27.5); Chloride 106 mmol/L (96-109); Globulin 2.2 g/dL (1.6-3.3); Glucose 226 mg/dL (70-110); Magnesium 1.9 mg/dL (1.5-2.4); Potassium 5.1 mmol/L (3.5-5.5); Sodium 138 mmol/L (135-145); Total Bilirubin <0.15 mg/dL (0.30-1.20); Total Protein 6.1 g/dL (6.2-8.2)
[2022-10-05 09:29] LABS: Basophils # (A) 0.02 X 10*3/uL (0.00-0.10); Basophils % (A) 0.2 %; Eosinophils # (A) 0 X 10*3/uL (0.04-0.35); Eosinophils % (A) 0 %; HCT 33.3 % (37.2-46.3); HGB 10.6 g/dL (12.0-15.0); Immature Grans, Automated 0.6 %; Lymphocytes # (A) 4.58 X 10*3/uL (0.90-5.00); MCHC 31.8 g/dL (32.0-37.0); Monocytes # (A) 0.55 X 10*3/uL (0.20-1.00); Monocytes % (A) 6.4 %; NRBC Per 100 WBC 0 /100 WBCS (0.0-0.0); Neutrophils # (A) 3.44 X 10*3/uL (1.80-7.70); Neutrophils % (A) 39.8 %; Platelet Count 377 X 10*3/uL (140-440); RBC 3.66 X 10*6/uL (4.10-5.20); RDW 14.3 % (11.5-14.5); WBC 8.64 X 10*3/uL (4.50-10.00)
[2022-10-05] MEDS: INSULIN ASPART (NovoLOG) 100 UNIT/ML VIAL SQ SCH ×3 (09:36→15:05)
[2022-10-05] MEDS: LORazepam 1 MG TAB PO SCH ×2 (09:38→12:53)
[2022-10-05] MEDS: LIPASE 5,000/PROTEASE 17,000/AMYLASE 24,000 PO SCH ×2 (09:38→12:53)
--- NOTE | 2022-10-05 09:47 | P.HPIM ---
History of Present Illness H&P Date: 10/04/22 This is a pleasant 62-year-old female who was at [address] [place] [address] for manic behavior and psychiatric evaluation and had been having some low blood sugar readings. Patient does have a significant past medical history of diabetes and uses long-acting insulin along with oral diabetic agents. Med reconciliation was done in the ER with pharmacy was wrong and patient's home meds were reordered as wrong dosages and patient received 50 units of long- acting at night and normally takes 16. Patient had all day episodes of hypoglycemia with no real symptoms other than low blood sugar readings. Patient was given multiple juices along with oral glucose tablets and no significant improvement and patient was an a team an IV was started and patient was given dextrose and blood sugars went up. A team nursing staff recommended transfer to medical and agreeable patient was sent over to 5 [address]. under observation for evaluation of hypoglycemia. Review Of Systems: Constitutional: No fever, no chills, no night sweats. No weight change. No weakness, fatigue or lethargy. No daytime sleepiness. EENT: No headache. No blurred vision or double vision, no loss of vision. No loss of Hearing, no ringing in the ears, no dizziness. No nasal drainage or congestion. No epistaxis. No sore throat. Lungs: No shortness of breath, cough, no sputum production. No wheezing. Cardiovascular: No chest pain, no lower extremity edema. No palpitations. No paroxysmal nocturnal dyspnea. No orthopnea. No lightheadedness or dizziness. No syncopal episodes. Abdominal: No abdominal pain. No nausea, vomiting. No diarrhea. No constipation. No bloody or tarry stools.. No loss of appetite. Genitourinary: No dysuria, increased frequency, urgency. No urinary retention. Musculoskeletal: No myalgias. No muscle weakness, no gait dysfunction, no frequent falls. No back pain. No neck pain. Integumentary: No wounds, no lesions. No rash or pruritus. No unusual bruising. No change in hair or nails. Neurologic: No aphasia. No facial droop. No change in mentation. No head injury. No headache. No paralysis. No paresthesia. Psychiatric: No depression. No anxiety. No mood swings. Endocrine: Reports abnormal blood sugars. No weight change. No excessive sweating or thirst. No cold intolerance. PHYSICAL EXAMINATION: GENERAL: The patient is alert and oriented x4, Well developed, well nourished. HEENT: Pupils are round and equally reacting to light. EOMI. no scleral icterus. No conjunctival pallor. Normocephalic, atraumatic. No pharyngeal erythema. No thyromegaly. CARDIOVASCULAR: S1 and S2 muffled PULMONARY: diminished breath sounds bilaterally with no wheezing or rhonchi note d. ABDOMEN: soft. Nontender on exam. obese. non-distended, normoactive bowel sounds. No palpable organomegaly. MUSCULOSKELETAL: No joint swelling or deformity. EXTREMITIES: No cyanosis, clubbing, or pedal edema. NEUROLOGICAL: Gross neurological examination did not reveal any focal deficits. SKIN: No rashes. Assessment: Hypoglycemic event History of diabetes mellitus, type II, uncontrolled with hypo-and hyperglycemia History of chronic pancreatitis next line COPD, not an exacerbation Line history of CVA/TIA GERD Hyperlipidemia Anxiety/bipolar depression with PTSD and schizophrenia Continued ongoing nicotine dependence Previous history of methamphetamine use GI prophylaxis DVT prophylaxis Full code Plan: Recommend to continue with current medications and management of blood sugar readings. Recommend before meals at bedtime and close monitoring of Accu-Cheks and at 2 AM and patient was started on gentle IV hydration as patient received 2 A of dextrose and blood sugar was 400 on arrival to MedSurg unit. Patient started on consistent carb diet along with long-acting and sliding scale and will monitor overnight Recommend psychiatric evaluation as patient was in patient on [facility]. Per nursing staff psych reported she is okay without a sitter Recommend follow-up labs in a.m. Will discuss with psychiatry about transferring back to [facility] are patient is stable for discharge Patient is currently living at the [facility] and will discuss with social work about discharge planning The impression and plan of care has been dictated by Racheal Barr nurse practitioner as directed. Dr. Aravind MD I have performed a history and examination and MDM of this patient, discussed the same with the dictator, and agree with the dictator's assessment and plan a s written ,documented as a scribe. Based on total visit time, I have performed more than 50% of the visit. Any additional findings or plans will be noted. 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 6, chronic bronchitis recent fall with 7 left rib fractures, hematoma to right forehead in past, History of Any Multi-Drug Resistant Organisms: MRSA Date of last positivie culture/infection: 10/20/21 MDRO Source:: Head Past Surgical History: Appendectomy Additional Past Surgical History / Comment(s): CYST REMOVED FROM NECK, RT 3RD/4TH FINGER PARTIAL AMP D/T INJURY, lt ureter stent, COLONOSCOPY/POLYPECTOMY Past Anesthesia/Blood Transfusion Reactions: Motion Sickness, Postoperative Nausea & Vomiting (PONV) Past Psychological History: Anxiety, Bipolar, Depression, PTSD, Schizophrenia Smoking Status: Current every day smoker Past Alcohol Use History: None Reported Additional Past Alcohol Use History / Comment(s): RECOVERED ALCOHOLIC SINCE 2014. STARTED SMOKING AT AGE 15 WORKED UP TO 1.5 PPD , CURRENTLY SMOKING 6 CIGARRETTS A DAY Past Drug Use History: Methamphetamine, Prescription Drug Abuse Additional Drug Use History / Comment(s): denies current marijana use - Past Family History Father Family Medical History: Liver Disease Additional Family Medical History / Comment(s): Father at age 78 from cirrhosis of the liver. Mother Family Medical History: No Reported History Additional Family Medical History / Comment(s): Mother is alive in her 80s Sister(s) Family Medical History: Coronary Artery Disease (CAD) Additional Family Medical History / Comment(s): Patient has 2 sisters and one has from an overdose. She has 1 brother with no major medical problems. 4cm aortic aneurysm Medications and Allergies Home Medications Medication Instructions Recorded Confirmed Type lamoTRIgine 200 mg PO DAILY 30 Days #30 tab 10/25/21 10/04/22 Rx Ergocalciferol (Vitamin D2) 1,250 mcg PO WEEKLY 10/04/22 10/04/22 History [Drisdol (50,000 Iu)] Insulin Glargine,Hum.rec.anlog 16 units SQ HS 10/04/22 10/04/22 History [Lantus Solostar Pen] LORazepam [Ativan] 1 mg PO QID@08,12,17,10/04/22 10/04/22 History Lipase/Protease/Amylase [Zenpep Dr 2 cap PO TID 10/04/22 10/04/22 History 5,000 Unit Capsule] OLANZapine [ZyPREXA] 30 mg PO HS 10/04/22 10/04/22 History fluPHENAZine decanoate [Prolixin 25 mg IM Q7D 10/04/22 10/04/22 History Decanoate] glipiZIDE XL [Glucotrol Xl] 20 mg PO DAILY 10/04/22 10/04/22 History hydrOXYzine pamoate [Vistaril] 100 mg PO HS 10/04/22 10/04/22 History metFORMIN HCL ER [Glucophage XR] 1,000 mg PO BID 10/04/22 10/04/22 History sitaGLIPtin [Januvia] 100 mg PO DAILY 10/04/22 10/04/22 History Allergies Allergy/AdvReac Type Severity Reaction Status Date / Time No Known Allergies Allergy Verified 10/02/22 18:22 Physical Exam Vitals: Vital Signs Temp Pulse Resp BP Pulse Ox 10/04/22 15:25 98.3 F 105 H 18 103/69 97 Intake and Output 10/04/22 10/04/22 10/04/22 06:59 14:59 22:59 Other: Weight 62 kg Results CBC & Chem 7: 10/05/22 04:55 10/05/22 04:55 Thrombosis Risk Factor Assmnt - DVT/VTE Prophylaxis DVT/VTE Prophylaxis: Pharmacologic Prophylaxis ordered - Choose All That Apply Each Factor Represents 1 point: Abnormal pulmonary function (COPD) Each Risk Factor Represents 2 Points: Age 61-74 years Thrombosis Risk Factor Assessment Total Risk Factor Score: 3 Thrombosis Risk Factor Assessment Level: Moderate Risk Assessment and Plan Time with Patient: Greater than 30
[2022-10-05] MEDS: ACETAMINOPHEN TAB 325 MG TAB PO PRN (10:41)
[2022-10-05 11:10] VITALS: BMI 24.2
[2022-10-05 11:22] LABS: Glucose,Whole Blood 97 mg/dL (70-110)
--- NOTE | 2022-10-05 13:19 | P.PN ---
Progress Note - Text Progress Note Date: 10/05/22 S&O: Patient was seen in rounds she is currently in medical floor since her blood sugar was going down and up. She was seen sitting in her chair in her room. She is calm and cooperative. She said she is ready to come back to mental health unit and go home as soon as possible when we discharge her. She has been taking her medication and denies any adverse effects. This is a white ambulatory female who is currently sitting in the chair. She has adequate hygiene. He does not show any psychomotor agitation or retardation. Her speech is spontaneous mildly pressured with some flight of ideas. Mood is still elevated. Denies suicide and homicide thoughts. Her sensorium is clear. Denies adverse effects from her medication. A&P: Continue her current medication and return her to mental health unit when medically cleared to come back here.
[2022-10-05 13:24] VITALS: BP 101/67; PULSE 80
--- NOTE | 2022-10-05 14:18 | P.DS ---
Providers Date of admission: 10/04/22 15:10 Expected date of discharge: 10/05/22 Attending physician: Mark Anthony Mack Consults: 10/04/22 16:10 Consult Physician Routine Consulting Provider: Tevin Mckeon Consult Reason/Comments: was on psych unit Do you want consulting provider notified?: Yes Primary care physician: Stated None Hospital Course: Final diagnosis Discharge disposition Patient is being transferred in a stable condition with guarded prognosis to [address] [place] [address] . Patient will follow-up with Dr. Chu in the outpatient setting upon discharge from [facility]. Recommend continue monitoring Accu-Cheks before meals and at bedtime and as needed. Total time taken is greater than 35 minutes. Hospital course This is a 62-year-old female who was recently admitted on [facility] psychiatric unit for further evaluation for juan and was having some decreased blood sugars. Patient was closely monitored overnight maintained on sliding scale and would recommend resuming her oral diabetic agents and continuing with corrected dose of only 16 units at night of long-acting as patient received 50 units at night per order although the med reconciliation was done wrong. Continue with consistent carb diet and recommend Accu-Cheks before meals and at bedtime. Patient is medically stable and cleared for transfer back to [facility] for further psychiatric evaluation. Psychiatric provider did evaluate the patient here well on the medical unit and will be accepting the patient back on [facility]. Currently no reports of chest pain, shortness of breath, or palpitations. Patient is afebrile. No reports of nausea or vomiting and patient is tolerating diet. Patient will be going to [address] [place] [address] unit today. Physical exam: Gen: This is a 62-year-old female who is awake, alert and oriented 3, thin built HEENT: Head is atraumatic, normocephalic. Pupils equal, round. Sclerae is anicteric. NECK: Supple. No JVD. No lymphadenopathy. No thyromegaly. LUNGS: Clear to auscultation. No wheezes or rhonchi. No intercostal retractions. HEART: Regular rate and rhythm. No murmur. ABDOMEN: Soft. Bowel sounds are present. No masses. No tenderness. EXTREMITIES: No pedal edema. No calf tenderness. NEUROLOGICAL: Patient is awake, alert and oriented x3. Cranial nerves 2 through 12 are grossly intact. Please refer to medication reconciliation sheet for a list of medications. The impression and plan of care has been dictated by Racheal Barr, Nurse Practitioner as directed. MD Theresa I have performed a history and examination and MDM of this patient, discussed the same with the dictator, and agree with the dictator's assessment and plan as written ,documented as a scribe. Based on total visit time, I have performed more than 50% of the visit. Patient Condition at Discharge: Stable Plan - Discharge Summary Discharge Rx Participant: Yes New Discharge Prescriptions: New Nicotine Gum (Polacrilex) [Nicorette] 2 mg BUCCAL Q2HR PRN pieceofgum PRN Reason: Nicotine Cravings Acetaminophen Tab [Tylenol] 650 mg PO Q6HR PRN tab PRN Reason: Mild Pain Or Fever > 100.5 Continue lamoTRIgine 200 mg PO DAILY 30 Days #30 tab Insulin Glargine,Hum.rec.anlog [Lantus Solostar Pen] 16 units SQ HS metFORMIN HCL ER [Glucophage XR] 1,000 mg PO BID hydrOXYzine pamoate [Vistaril] 100 mg PO HS sitaGLIPtin [Januvia] 100 mg PO DAILY fluPHENAZine decanoate [Prolixin Decanoate] 25 mg IM Q7D OLANZapine [ZyPREXA] 30 mg PO HS Lipase/Protease/Amylase [Zenpep Dr 5,000 Unit Capsule] 2 cap PO TID Ergocalciferol (Vitamin D2) [Drisdol (50,000 Iu)] 1,250 mcg PO WEEKLY LORazepam [Ativan] 1 mg PO QID@,,17,21 Changed glipiZIDE XL [Glucotrol XL] 10 mg PO DAILY #0 Discharge Medication List lamoTRIgine 200 mg PO DAILY 30 Days #30 tab 10/25/21 [Rx] Ergocalciferol (Vitamin D2) [Drisdol (50,000 Iu)] 1,250 mcg PO WEEKLY 10/04/22 [History] Insulin Glargine,Hum.rec.anlog [Lantus Solostar Pen] 16 units SQ HS 10/04/22 [History] LORazepam [Ativan] 1 mg PO QID@08,12,17,21 10/04/22 [History] Lipase/Protease/Amylase [Zenpep Dr 5,000 Unit Capsule] 2 cap PO TID 10/04/22 [History] OLANZapine [ZyPREXA] 30 mg PO HS 10/04/22 [History] fluPHENAZine decanoate [Prolixin Decanoate] 25 mg IM Q7D 10/04/22 [History] hydrOXYzine pamoate [Vistaril] 100 mg PO HS 10/04/22 [History] metFORMIN HCL ER [Glucophage XR] 1,000 mg PO BID 10/04/22 [History] sitaGLIPtin [Januvia] 100 mg PO DAILY 10/04/22 [History] Acetaminophen Tab [Tylenol] 650 mg PO Q6HR PRN tab 10/05/22 [Rx] Nicotine Gum (Polacrilex) [Nicorette] 2 mg BUCCAL Q2HR PRN pieceofgum 10/05/22 [Rx] glipiZIDE XL [Glucotrol XL] 10 mg PO DAILY #0 10/05/22 [Rx] Activity/Diet/Wound Care/Special Instructions: Patient is medically stable for transfer back to [facility] psychiatric unit for further psychiatric evaluation Recommend Accu-Cheks before meals and at bedtime and we'll continue just sliding scale Discharge Disposition: TRANSFER TO PSYCH HOSP/UNIT
[2022-10-05 14:57] LABS: Glucose,Whole Blood 324 mg/dL (70-110)
[2022-10-05] MEDS ORDERED: INSULIN DETEMIR (LEVEMIR) 100 UNIT/ML SYR SQ SCH (21:00)
[2022-10-08] MEDS ORDERED: ERGOCALCIFEROL 1,250 MCG (50,000 IU) CAPSULE PO SCH (09:00)
== END 2022-10-05 16:58 ==
LOC: 5NMEDONC 15:10
PROVIDERS: ADMIT Hospitalist; ATTEND Hospitalist
DX: E11.649 Type 2 diabetes mellitus with hypoglycemia without coma (principal); F20.9 Schizophrenia, unspecified; F31.9 Bipolar disorder, unspecified; F43.10 Post-traumatic stress disorder, unspecified; E11.65 Type 2 diabetes mellitus with hyperglycemia; F41.9 Anxiety disorder, unspecified; K21.9 Gastro-esophageal reflux disease without esophagitis; E78.5 Hyperlipidemia, unspecified; J44.9 Chronic obstructive pulmonary disease, unspecified; N28.9 Disorder of kidney and ureter, unspecified; E11.42 Type 2 diabetes mellitus with diabetic polyneuropathy; K86.1 Other chronic pancreatitis; F10.21 Alcohol dependence, in remission; F17.210 Nicotine dependence, cigarettes, uncomplicated; Z79.4 Long term (current) use of insulin; Z79.84 Long term (current) use of oral hypoglycemic drugs; Z79.899 Other long term (current) drug therapy; Z86.14 Personal history of Methicillin resistant Staphylococcus aureus infection; Z86.73 Personal history of transient ischemic attack (TIA), and cerebral infarction without residual deficits; Z87.898 Personal history of other specified conditions; Z86.010 Personal history of colon polyps; Z85.819 Personal history of malignant neoplasm of unspecified site of lip, oral cavity, and pharynx; Z87.440 Personal history of urinary (tract) infections; Z87.81 Personal history of (healed) traumatic fracture; Z87.828 Personal history of other (healed) physical injury and trauma; Z90.49 Acquired absence of other specified parts of digestive tract; Z98.890 Other specified postprocedural states; Z82.49 Family history of ischemic heart disease and other diseases of the circulatory system; Z83.79 Family history of other diseases of the digestive system; Z81.8 Family history of other mental and behavioral disorders
CPT/HCPCS: 80053; 83735; 85025; 83036; G0378 ×2; G0379

== ENCOUNTER 2022-10-05 15:32 | Inpatient (IN) | payer MEDICAID, OTHER ==
[2022-10-05] MEDS ORDERED: MAG HYDROX/AL HYDROX/SIMETH 30 ML CUP PO PRN (16:01)
[2022-10-05] MEDS ORDERED: MAGNESIUM HYDROXIDE 2,400 MG/10 ML CUP PO PRN (16:01)
[2022-10-05] MEDS ORDERED: IBUPROFEN 400 MG TAB PO PRN (16:01)
[2022-10-05] MEDS ORDERED: DEXTROSE 50% SYRINGE 50 ML IVP PRN ×2 (16:03)
[2022-10-05] MEDS: LIPASE 5,000/PROTEASE 17,000/AMYLASE 24,000 PO SCH ×2 (17:23→20:36)
[2022-10-05] MEDS: ACETAMINOPHEN TAB 325 MG TAB PO PRN ×2 (17:25→22:23)
[2022-10-05] MEDS: LORazepam 1 MG TAB PO SCH ×2 (17:25→20:35)
[2022-10-05] MEDS: NICOTINE GUM (POLACRILEX) 2 MG GUM BUCCAL PRN ×2 (17:26→18:32)
[2022-10-05 17:36] LABS: Glucose,Whole Blood 93 mg/dL (70-110)
[2022-10-05] MEDS: INSULIN ASPART (NovoLOG) 100 UNIT/ML VIAL SQ SCH ×2 (17:51→20:19)
[2022-10-05 20:07] LABS: Glucose,Whole Blood 337 mg/dL (70-110)
[2022-10-05] MEDS: INSULIN DETEMIR (LEVEMIR) 100 UNIT/ML SYR SQ SCH (20:20)
[2022-10-05] MEDS: hydrOXYzine pamoate 25 MG CAP PO SCH (20:35)
[2022-10-05] MEDS ORDERED: OLANZapine 10 MG TAB PO SCH (21:00)
[2022-10-05 21:31] LABS: Glucose,Whole Blood 347 mg/dL (70-110)
[2022-10-05 22:17] LABS: Glucose,Whole Blood 241 mg/dL (70-110)
[2022-10-05 23:13] LABS: Glucose,Whole Blood 150 mg/dL (70-110)
[2022-10-05 23:25] LABS: Glucose,Whole Blood 172 mg/dL (70-110)
[2022-10-06] MEDS: LORazepam 1 MG TAB PO PRN (01:16)
[2022-10-06 08:26] LABS: Glucose,Whole Blood 309 mg/dL (70-110)
[2022-10-06] MEDS: INSULIN ASPART (NovoLOG) 100 UNIT/ML VIAL SQ SCH ×4 (08:26→19:50)
[2022-10-06] MEDS: LIPASE 5,000/PROTEASE 17,000/AMYLASE 24,000 PO SCH ×3 (09:04→19:56)
[2022-10-06] MEDS: LORazepam 1 MG TAB PO SCH ×4 (09:05→19:50)
[2022-10-06] MEDS: lamoTRIgine 100 MG TAB PO SCH (09:05)
[2022-10-06] MEDS: NICOTINE GUM (POLACRILEX) 2 MG GUM BUCCAL PRN ×2 (09:59→12:42)
[2022-10-06 13:05] LABS: Glucose,Whole Blood 208 mg/dL (70-110)
--- NOTE | 2022-10-06 13:08 | P.MDCNMH ---
History of Present Illness H&P Date: 10/06/22 This is a pleasant 62-year-old female who was recently admitted to the psychiatric unit although had some low blood sugar readings secondary to receiving a large amount of long-acting insulin the night before as pharmacy had verified the incorrect dosage. Patient normally takes 16 units along with oral diabetic agents. Patient reports she lives at [facility] and they check her blood sugars before meals and at bedtime and manage her medications. Patient was placed overnight on the medical unit for observation due to hypoglycemia and was maintained on Accu-Cheks before meals and at bedtime along with sliding scale. Patient medically stable and transferred back to the psych unit as roro ashby was following over here as well. On exam today patient is up and walking with no reports of chest pain or shortness of breath. Patient reports her sugars have been well controlled and no further episodes of hypoglycemia. Patient is tolerating diet with no reports of nausea or vomiting noted. Patient reports she is working with case management/social work on discharge planning. Her plan is to return to the [facility]. Review Of Systems: Constitutional: No fever, no chills, no night sweats. No weight change. No weakness, fatigue or lethargy. No daytime sleepiness. EENT: No headache. No blurred vision or double vision, no loss of vision. No loss of Hearing, no ringing in the ears, no dizziness. No nasal drainage or congestion. No epistaxis. No sore throat. Lungs: No shortness of breath, cough, no sputum production. No wheezing. Cardiovascular: No chest pain, no lower extremity edema. No palpitations. No paroxysmal nocturnal dyspnea. No orthopnea. No lightheadedness or dizziness. No syncopal episodes. Abdominal: No abdominal pain. No nausea, vomiting. No diarrhea. No constipation. No bloody or tarry stools.. No loss of appetite. Genitourinary: No dysuria, increased frequency, urgency. No urinary retention. Musculoskeletal: No myalgias. No muscle weakness, no gait dysfunction, no frequent falls. No back pain. No neck pain. Integumentary: No wounds, no lesions. No rash or pruritus. No unusual bruising. No change in hair or nails. Neurologic: No aphasia. No facial droop. No change in mentation. No head injury. No headache. No paralysis. No paresthesia. Psychiatric: No depression. No anxiety. No mood swings. Endocrine: Reports some abnormal blood sugars. No weight change. No excessive sweating or thirst. No cold intolerance. PHYSICAL EXAMINATION: GENERAL: The patient is alert and oriented x4, Well developed, well nourished. Thin built HEENT: Pupils are round and equally reacting to light. EOMI. no scleral icterus. No conjunctival pallor. Normocephalic, atraumatic. No pharyngeal erythema. No thyromegaly. CARDIOVASCULAR: S1 and S2 muffled PULMONARY: diminished breath sounds bilaterally with no wheezing or rhonchi noted. ABDOMEN: soft. Nontender on exam. non-distended, normoactive bowel sounds. No palpable organomegaly. MUSCULOSKELETAL: No joint swelling or deformity. EXTREMITIES: No cyanosis, clubbing, or pedal edema. NEUROLOGICAL: Gross neurological examination did not reveal any focal deficits. SKIN: No rashes. Assessment: Manic episode with history of anxiety/bipolar/depression/PTSD with schizophrenia History of chronic pancreatitis COPD, not an exacerbation next line history of CVA/TIA history of diabetes mellitus type 2, insulin-dependent uncontrolled with hyperglycemia and hypoglycemia Hyperlipidemia Continued ongoing nicotine dependence GERD GI prophylaxis Full code Plan: Recommend to continue with current medications and management per psychiatric services. Patient had been seen over here on the medical unit and cleared medically and transferred back to the psych for further psychiatric services. Recommend monitoring Accu-Cheks before meals and at bedtime and will continue with oral diabetic agents along with long-acting insulin as well as sliding scale Home medications have been reviewed and resumed Recommend patient continue with nicotine gum as patient continues to smoke Encourage the patient to attend group therapy meetings and complaints of medications and follow with psychiatry along with social work to work on discharge planning Thank you kindly for this consultation The impression and plan of care has been dictated by Racheal Barr nurse practitioner as directed. Dr. Aravind MD I have performed a history and examination and MDM of this patient, discussed the same with the dictator, and agree with the dictator's assessment and plan as written ,documented as a scribe. Based on total visit time, I have performed more than 50% of the visit. Any additional findings or plans will be noted. 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 6, chronic bronchitis recent fall with 7 left rib fractures, hematoma to right forehead in past, History of Any Multi-Drug Resistant Organisms: MRSA Date of last positivie culture/infection: 10/20/21 MDRO Source:: Head Past Surgical History: Appendectomy Additional Past Surgical History / Comment(s): CYST REMOVED FROM NECK, RT 3RD/4TH FINGER PARTIAL AMP D/T INJURY, lt ureter stent, COLONOSCOPY/POLYPECTOMY Past Anesthesia/Blood Transfusion Reactions: No Reported Reaction, Motion Sickness, Postoperative Nausea & Vomiting (PONV) Past Psychological History: Anxiety, Bipolar, Depression, PTSD, Schizophrenia Additional Psychological History / Comment(s): . Smoking Status: Current every day smoker Past Alcohol Use History: None Reported Additional Past Alcohol Use History / Comment(s): RECOVERED ALCOHOLIC SINCE 2014. STARTED SMOKING AT AGE 15 WORKED UP TO 1.5 PPD , CURRENTLY SMOKING 6 CIGARRETTS A DAY Past Drug Use History: Methamphetamine, Prescription Drug Abuse Additional Drug Use History / Comment(s): denies current marijana use - Past Family History Father Family Medical History: Liver Disease Additional Family Medical History / Comment(s): Father at age 78 from cirrhosis of the liver. Mother Family Medical History: No Reported History Additional Family Medical History / Comment(s): Mother is alive in her 80s Sister(s) Family Medical History: Coronary Artery Disease (CAD) Additional Family Medical History / Comment(s): Patient has 2 sisters and one has from an overdose. She has 1 brother with no major medical problems. 4cm aortic aneurysm Medications and Allergies Home Medications Medication Instructions Recorded Confirmed Type lamoTRIgine 200 mg PO DAILY 30 Days #30 tab 10/25/21 10/05/22 Rx Ergocalciferol (Vitamin D2) 1,250 mcg PO WEEKLY 10/04/22 10/05/22 History [Drisdol (50,000 Iu)] Insulin Glargine,Hum.rec.anlog 16 units SQ HS 10/04/22 10/05/22 History [Lantus Solostar Pen] LORazepam [Ativan] 1 mg PO QID@08,12,17,21 10/04/22 10/05/22 History Lipase/Protease/Amylase [Zenpep Dr 2 cap PO TID 10/04/22 10/05/22 History 5,000 Unit Capsule] OLANZapine [ZyPREXA] 30 mg PO HS 10/04/22 10/05/22 History fluPHENAZine decanoate [Prolixin 25 mg IM Q7D 10/04/22 10/05/22 History Decanoate] hydrOXYzine pamoate [Vistaril] 100 mg PO HS 10/04/22 10/05/22 History metFORMIN HCL ER [Glucophage XR] 1,000 mg PO BID 10/04/22 10/05/22 History sitaGLIPtin [Januvia] 100 mg PO DAILY 10/04/22 10/05/22 History Acetaminophen Tab [Tylenol] 650 mg PO Q6HR PRN tab 10/05/22 10/05/22 Rx Nicotine Gum (Polacrilex) 2 mg BUCCAL Q2HR PRN pieceofgum 10/05/22 10/05/22 Rx [Nicorette] glipiZIDE XL [Glucotrol XL] 10 mg PO DAILY #0 10/05/22 10/05/22 Rx Allergies Allergy/AdvReac Type Severity Reaction Status Date / Time No Known Allergies Allergy Verified 10/05/22 17:20 Physical Exam Vitals: Vital Signs Temp Pulse Resp BP Pulse Ox 10/06/22 01:18 95.5 F L 82 17 132/71 96 10/05/22 17:09 97.4 F L 95 18 124/68 98 Intake and Output 10/05/22 10/06/22 10/06/22 22:59 06:59 14:59 Other: Weight 62 kg Cranial Nerve Examination - Cranial Nerves Cranial Nerve I- Olfactory: Intact Cranial Nerve II- Optic: Intact Cranial Nerve III- Oculomotor: Intact Cranial Nerve IV- Trochlear: Intact Cranial Nerve V- Trigeminal: Intact Cranial Nerve - Abducens: Intact Cranial Nerve VII- Facial: Intact Cranial Nerve VIII- Auditory: Intact Cranial Nerve IX- Glossopharyngeal: Intact Cranial Nerve X- Vagus: Intact Cranial Nerve XI- Accessory: Intact Cranial Nerve XII- Hypoglossal: Intact Results Labs: Abnormal Lab Results - Last 24 Hours (Table) 10/05/22 10/05/22 10/05/22 Range/Units 20:06 21:27 22:14 POC Glucose (mg/dL) 337 H 347 H 241 H (70-110) mg/dL 10/05/22 10/05/22 10/06/22 Range/Units 23:10 23:22 08:21 POC Glucose (mg/dL) 150 H 172 H 309 H (70-110) mg/dL Assessment and Plan Time with Patient: Less than 30
[2022-10-06] MEDS: clonazePAM 1 MG TAB PO SCH ×2 (16:48→19:50)
[2022-10-06 17:13] LABS: Glucose,Whole Blood 219 mg/dL (70-110)
[2022-10-06 19:46] LABS: Glucose,Whole Blood 377 mg/dL (70-110)
[2022-10-06] MEDS: OLANZapine 7.5 MG TAB PO SCH (19:49)
[2022-10-06] MEDS: LITHIUM CARBONATE 150 MG CAP PO SCH (19:49)
[2022-10-06] MEDS: hydrOXYzine pamoate 25 MG CAP PO SCH (19:49)
[2022-10-06] MEDS: INSULIN DETEMIR (LEVEMIR) 100 UNIT/ML SYR SQ SCH (19:50)
[2022-10-06] MEDS: ACETAMINOPHEN TAB 325 MG TAB PO PRN (19:50)
[2022-10-07 02:05] LABS: Glucose,Whole Blood 220 mg/dL (70-110)
[2022-10-07] MEDS: ACETAMINOPHEN TAB 325 MG TAB PO PRN ×3 (04:12→22:50)
[2022-10-07 07:44] LABS: Glucose,Whole Blood 140 mg/dL (70-110)
[2022-10-07] MEDS: lamoTRIgine 100 MG TAB PO SCH (07:47)
[2022-10-07] MEDS: LORazepam 1 MG TAB PO SCH ×2 (07:47→12:41)
[2022-10-07] MEDS: clonazePAM 1 MG TAB PO SCH ×3 (07:47→19:42)
[2022-10-07] MEDS: ARIPiprazole 15 MG TAB PO SCH (07:47)
[2022-10-07] MEDS: LITHIUM CARBONATE 150 MG CAP PO SCH ×2 (07:47→19:42)
[2022-10-07] MEDS: INSULIN ASPART (NovoLOG) 100 UNIT/ML VIAL SQ SCH ×4 (08:08→19:42)
[2022-10-07] MEDS: LIPASE 5,000/PROTEASE 17,000/AMYLASE 24,000 PO SCH ×3 (08:37→19:41)
[2022-10-07 09:56] LABS: Glucose,Whole Blood 361 mg/dL (70-110)
[2022-10-07] MEDS: LORazepam 1 MG TAB PO PRN ×2 (12:33→12:35)
[2022-10-07 12:56] LABS: Glucose,Whole Blood 191 mg/dL (70-110)
[2022-10-07 17:32] LABS: Glucose,Whole Blood 183 mg/dL (70-110)
--- NOTE | 2022-10-07 19:29 | P.HP ---
Psychiatric H&P - . H&P Date: 10/06/22 History & Physical: IDENTIFYING DATA: Patient is a 62 year old female who lives at [facility] home. HPI: Patient presented to the hospital on 10/02/22 and admitted to inpatient psychiatry. On 10/04/22, patient was transferred to the medical floor due to h ypoglycemia. She was stabilized and returned to the psychiatry unit last night. I evaluated patient on 10/06/22.She is irritable and condescending. She states she does not want the ACT team. Reports she was in a good mood until she talked to the ACT team today. Everytime I talk to them they get me into a bad mood. She has a knife in her purse that she just purchased, someone called the police and said she put the knife to her damn throat. She says the staff at the [facility] home have the knife in the She says the knives were given to her. She states she is likely more intelligent than some of the people on the ACT team. She reports history of drug or alcohol use. She has been sober from alcohol for 5 years. She reports she has abused meth for 8 months and then relapsed in March 2022, and stopped again when she [facility] in April 2022, has been clean from meth since april 2022, does regular drug tests. Mood is "great until I got done talking to those assholes." She is compliant. Patient denies any suicidal or homicidal ideation, intent or plan. At this time patient denies any auditory or visual hallucinations. Her sleep is "pretty good" except for restless legs. She requests to go back on [place], Abilify, Klonopin and to lower the Zyprexa. PAST PSYCHIATRIC HISTORY: Current medications: Lamictal 200 mg daily, Zyprexa 30 mg QHS. Multiple medication trials in the past including Depakote, Cymbalta, Zyprexa, Lexapro, Thorazine, [place], Seroquel, Trileptal, Trazodone. Multiple previous psychiatric hospitalizations. Psychiatric outpatient follow-up: CM, ACT team History of suicide attempts and cutting in the past. PMH: Past Medical History: Cancer, CVA/TIA, Diabetes Mellitus, GERD/Reflux, Hyperlipidemia, Renal Disease Additional Past Medical History / Comment(s): Chronic pancreatitis,wt loss of 60-70 pounds over last year, HEART MURMUR AND ENLARGED AORTA, tia's, colon polyps-benign, "blood pressure tends to run low ended up in ICU" pt states recent UTI treated,merle neuropathy,throat CA at age 6,chronic bronchitis recent fall with left rib fractures, hematoma to right forehead History of Any Multi-Drug Resistant Organisms: MRSA Date of last positivie culture/infection: 10/20/21 MDRO Source:: Head Past Surgical History: Appendectomy Additional Past Surgical History / Comment(s): CYST REMOVED FROM NECK. RT 3RD/4TH FINGER PARTIAL AMP D/T INJURY, lt ureter stent. COLONOSCOPY/POLYPECTOMY Past Anesthesia/Blood Transfusion Reactions: Motion Sickness, Postoperative Nausea & Vomiting (PONV) Past Psychological History: Anxiety, Bipolar, Depression, PTSD, Schizophrenia Smoking Status: Current every day smoker Past Alcohol Use History: None Reported Past Drug Use History: Methamphetamine, Prescription Drug Abuse ALLERGIES: as per EMR CHEMICAL DEPENDENCY HISTORY: aPer chart, has a history of alcohol use disorder. FAMILY PSYCHIATRIC/SUBSTANCE USE HISTORY: Sister and mother with bipolar disorder, prefers to not discuss this further. SOCIAL HISTORY: Patient was born and raised in [place], [place]. Sister is , prefers to not discuss her personal history further, becomes tearful. MENTAL STATUS EXAM: General Appearance: Patient appears to be stated age, dressed in casual attire, no makeup, hair is brushed. Behavior: Patient is seated without any agitated behavior, but can be rather intimidating. Speech: Patient's speech is fluent and non-pressured. Mood/Affect: Patient reports their mood is irritable "pissed off", affect is congruent and constricted. Suicidality/Homicidality: Patient denies having any homicidal ideation intent or plan. Denies any suicidal ideations intent or plan. Perceptions: Patient denies any visual hallucinations and denies any auditory hallucinations. Though content/process: There is evidence of delusional thought content and thought process is linear and goal-directed. Memory and concentration: AOX3, grossly intact for the purposes of this session. Can spell "WORLD" backwards Judgment and insight: fair STRENGTHS/WEAKNESSES: Strength is that patient is resilient. Weakness is that patient has poor judgment and is impulsive. INTELLECT: Average IMPRESSIONS: Bipolar disorder, unspecified --Bipolar I disorder manic with psychotic features by history Alcohol use disorder, severe, in remission Methamphetamine use disorder Cannabis use disorder, by history Cocaine use disorder in remission, by history PLAN: -Patient is admitted under voluntary status to MHU for stabilization of psychiatric symptoms and safety. Patient has signed adult voluntary form and medication consent and is placed in patient's chart. -Medications: Start Abilify 15 mg daily for mood/psychosis Start Klonopin 1 mg TID for anxiety. Restart [place] 450 mg BID for mood. Decrease Zyprexa to 15 mg QHS for ja/psychosis per patient preference. Continue Lamictal 200 mg daily for mood stabilization. Continue Hydroxyzine 100 mg QHS for anxiety. -Ativan and Haldol PRN for agitation/aggression -Patient was counselled on substance abuse and desired to cut back on use -Patient was informed of the risks, benefits and side effects of the medication and patient verbally consented to taking the medications. Patient signed med consent form and was placed in chart. -Internal Medicine consult to perform medical evaluation and physical. -NRT - nicotine gum -SW on board for discharge planning. Encourage patient to participate in groups to work on coping skills. Allergies Allergy/AdvReac Type Severity Reaction Status Date / Time No Known Allergies Allergy Verified 10/05/22 17:20 Vital Signs Temp 95.5 F L 10/06/22 01:18 Pulse 82 10/06/22 01:18 Resp 17 10/06/22 01:18 BP 132/71 10/06/22 01:18 Pulse Ox 96 10/06/22 01:18 FiO2 Intake & Output 10/05/22 10/06/22 10/06/22 18:59 06:59 18:59 Weight 62 kg Laboratory Last Values POC Glucose (mg/dL) 208 mg/dL (70-110) H 10/06/22 12:58 POC Glu Rubber Compounder Formulator ID Lilibeth Mancia 10/06/22 12:58 10/06/22 15:09 10/06/22 15:18 10/06/22 15:31 10/07/22 18:28
[2022-10-07 19:39] LABS: Glucose,Whole Blood 299 mg/dL (70-110)
[2022-10-07] MEDS: OLANZapine 7.5 MG TAB PO SCH (19:41)
[2022-10-07] MEDS: hydrOXYzine pamoate 25 MG CAP PO SCH (19:41)
[2022-10-07] MEDS: INSULIN DETEMIR (LEVEMIR) 100 UNIT/ML SYR SQ SCH (20:36)
--- NOTE | 2022-10-07 20:56 | P.PN ---
Progress Note - Text Progress Note Date: 10/07/22 Interval history: Patient was seen resting in her room, asleep but awakens easily and is directable and agreeable to speak with science writer. She reports mood is better today, feels "good" but still a little "crabby". At this time patient denies any suicidal or homicidal ideation, intent or plan. She denies any auditory or visual hallucinations. Patient denies any side effects from the medications. She reports feeling a little tired today and this is likely from the PRN Ativan she has been getting, but she denies this. We reviewed her medications and she reports she got an injection earlier this month, believes it was Abilify Maintena, but per our records and [facility] records she received Prolixin decanoate 50 mg IM on 09/30/22 at [facility]. She was previously on Abilify Maintena 300 mg IM q4 weeks from [id number], with last injection per [facility] records given one year ago on 09/27/2021. Staff reports she slept one hour last night, spent most of the night walking the hallways. Mental status exam: General Appearance: Patient appears to be stated age, dressed in casual attire, no makeup, hair is brushed. Behavior: Patient is seated without any agitated behavior. Speech: Patient's speech is fluent and non-pressured. Mood/Affect: Patient reports their mood is good but still "a little crabby", affect is congruent and constricted. Suicidality/Homicidality: Patient denies having any homicidal ideation intent or plan. Denies any suicidal ideation, intent or plan. Perceptions: Patient denies any visual hallucinations and denies any auditory hallucinations. Though content/process: There is evidence of delusional thought content and thought process is linear and goal-directed. Memory and concentration: AOX3, grossly intact for the purposes of this session. Judgment and insight: fair Assessment/Plan: Continue with current diagnosis. Patient continues to meet criteria for inpatient psychiatric admission for symptom stabilization and safety. Discontinue PRN Ativan to minimize sedation. Start Abilify Maintena 400 mg IM q4 weeks tomorrow for mood stabilization. Continue Abilify 15 mg daily for mood/psychosis Continue Klonopin 1 mg TID for anxiety. Continue [place] 450 mg BID for mood. Continue Zyprexa 15 mg QHS for ja/psychosis per patient preference. Continue Lamictal 200 mg daily for mood stabilization. Continue Hydroxyzine 100 mg QHS for anxiety. Monitor for medication compliance and for any psychotropic medication side effects. Will continue to monitor ongoing response to treatment. Encouraged participation in milieu.
[2022-10-08 01:41] LABS: Glucose,Whole Blood 197 mg/dL (70-110)
[2022-10-08] MEDS: LITHIUM CARBONATE 150 MG CAP PO SCH ×2 (07:34→19:31)
[2022-10-08] MEDS: LIPASE 5,000/PROTEASE 17,000/AMYLASE 24,000 PO SCH ×3 (07:34→19:31)
[2022-10-08] MEDS: clonazePAM 1 MG TAB PO SCH ×3 (07:35→19:31)
[2022-10-08] MEDS: ARIPiprazole 15 MG TAB PO SCH (07:35)
[2022-10-08] MEDS: lamoTRIgine 100 MG TAB PO SCH (07:35)
[2022-10-08 07:40] LABS: Glucose,Whole Blood 196 mg/dL (70-110)
[2022-10-08] MEDS: INSULIN ASPART (NovoLOG) 100 UNIT/ML VIAL SQ SCH ×4 (07:53→20:01)
[2022-10-08] MEDS ORDERED: ARIPiprazole IM SYRINGE 400 MG (NO CHARGE) PHARMACY STOCK IM SCH (11:00)
[2022-10-08 12:39] LABS: Glucose,Whole Blood 130 mg/dL (70-110)
[2022-10-08] MEDS ORDERED: ALBUTEROL HFA INHALER INHALATION PRN (15:15)
[2022-10-08] MEDS: ACETAMINOPHEN TAB 325 MG TAB PO PRN (15:19)
[2022-10-08] MEDS: NICOTINE GUM (POLACRILEX) 2 MG GUM BUCCAL PRN (16:45)
[2022-10-08 17:51] LABS: Glucose,Whole Blood 185 mg/dL (70-110)
[2022-10-08] MEDS: hydrOXYzine pamoate 25 MG CAP PO SCH (19:30)
[2022-10-08] MEDS: OLANZapine 7.5 MG TAB PO SCH (19:31)
[2022-10-08 19:43] LABS: Glucose,Whole Blood 336 mg/dL (70-110)
[2022-10-08] MEDS: INSULIN DETEMIR (LEVEMIR) 100 UNIT/ML SYR SQ SCH (20:01)
[2022-10-09] MEDS: ACETAMINOPHEN TAB 325 MG TAB PO PRN ×3 (00:26→23:29)
[2022-10-09 07:42] LABS: Glucose,Whole Blood 174 mg/dL (70-110)
[2022-10-09] MEDS: INSULIN ASPART (NovoLOG) 100 UNIT/ML VIAL SQ SCH ×4 (07:54→20:49)
[2022-10-09] MEDS: lamoTRIgine 100 MG TAB PO SCH (07:55)
[2022-10-09] MEDS: ARIPiprazole 15 MG TAB PO SCH (07:55)
[2022-10-09] MEDS: clonazePAM 1 MG TAB PO SCH ×3 (07:55→20:47)
[2022-10-09] MEDS: LITHIUM CARBONATE 150 MG CAP PO SCH ×2 (07:55→20:46)
[2022-10-09] MEDS: LIPASE 5,000/PROTEASE 17,000/AMYLASE 24,000 PO SCH ×3 (08:18→20:47)
[2022-10-09 12:40] LABS: Glucose,Whole Blood 175 mg/dL (70-110)
--- NOTE | 2022-10-09 15:20 | XR ---
EXAMINATION TYPE: XR foot complete RT DATE OF EXAM: 10/09/2022 COMPARISON: NONE HISTORY: Minimal swelling, foot pain TECHNIQUE: 3 views of the right foot were obtained. FINDINGS: There is a fracture at the base of the second metatarsal with minimal lateral displacement of the distal fracture fragment, which is seen only on one view. There is apparent sclerosis at the f racture margin. There are scattered degenerative changes of a few interphalangeal joints. There are d egenerative changes at the first metatarsophalangeal joint and tarsometatarsal joint. IMPRESSION: Age indeterminate, minimally displaced fracture at the base of the second metatarsal. If there is cli nical concern for Lisfranc injury, please consider further evaluation with MRI.
--- NOTE | 2022-10-09 17:27 | P.PN ---
Progress Note - Text Progress Note Date: 10/08/22 Interval history: Patient was seen walking the hallways and was agreeable to speak with justowriter operator. She reports improved mood and sleep, and asks about discharge home. Sleep log records about 4 hours of sleep last night, and she reports taking a nap during the day today. She received her Abilify Maintena injection 400 mg IM today at noon and denies any side effects so far. At this time, patient denies any suicidal or homicidal ideation, intent or plan. She denies any auditory or visual hallucinations. Patient denies any side effects from the medications. She reports feeling better on the lower dose of Zyprexa 15 mg QHS and feels better on the [place]. Mental status exam: General Appearance: Patient appears to be stated age, dressed in casual attire, no makeup, hair is brushed. Behavior: Patient is standing without any agitated behavior. Speech: Patient's speech is fluent and non-pressured. Mood/Affect: Patient reports their mood is improving, affect is congruent and constricted. Suicidality/Homicidality: Patient denies having any homicidal ideation intent or plan. Denies any suicidal ideation, intent or plan. Perceptions: Patient denies any visual hallucinations and denies any auditory hallucinations. Though content/process: There is evidence of delusional thought content and thought process is linear and goal-directed. Memory and concentration: AOX3, grossly intact for the purposes of this session. Judgment and insight: fair Assessment/Plan: Continue with current diagnosis. Patient continues to meet criteria for inpatient psychiatric admission for symptom stabilization and safety. Abilify Maintena 400 mg IM q4 weeks given today for mood stabilization. Continue Abilify 15 mg daily for mood/psychosis Continue Klonopin 1 mg TID for anxiety. Continue [place] 450 mg BID for mood. Check [place] level on Sunday morning. Continue Zyprexa 15 mg QHS for ja/psychosis per patient preference. Continue Lamictal 200 mg daily for mood stabilization. Continue Hydroxyzine 100 mg QHS for anxiety. Monitor for medication compliance and for any psychotropic medication side effects. Will continue to monitor ongoing response to treatment. Encouraged participation in milieu.
[2022-10-09 17:44] LABS: Glucose,Whole Blood 193 mg/dL (70-110)
--- NOTE | 2022-10-09 17:56 | P.PN ---
Progress Note - Text Progress Note Date: 10/09/22 Interval history: Patient was seen walking the hallways and requested to speak with this automotive service writer. She requests discharge today and feels she is ready to go home, however sleep log records from last night record only 0.5 hours of sleep. Patient was up most of the night on sitting at her desk or pacing. She complains of restless legs that she describes as a "tingly sensation" in her arms and legs that started after she was put on the Zyprexa about 3 weeks ago. She reports she is able to take naps during the day but is having a hard time sleeping at night after taking the HS Zyprexa. We discussed a trial of Requip but she declines and prefers to discontinue the Zyprexa, so we will taper and discontinue this. At this time, patient denies any suicidal or homicidal ideation, intent or plan. She denies any auditory or visual hallucinations. She complains of pain in her right foot that feels "like it's in the bone" on the top of the foot. STAT XR of the right foot was ordered this afternoon and results show a "fracture at the base of the second metatarsal with minimal lateral displacement of the distal fracture fragment." I notified patient of the result. Medical doctor has been notified of the results as well and will order a boot. Mental status exam: General Appearance: Patient appears to be stated age, dressed in casual attire, no makeup, hair is brushed. Behavior: Patient is standing without any agitated behavior. Speech: Patient's speech is fluent and non-pressured. Mood/Affect: Patient's mood is irritable, affect is congruent and constricted. Suicidality/Homicidality: Patient denies having any homicidal ideation intent or plan. Denies any suicidal ideation, intent or plan. Perceptions: Patient denies any visual hallucinations and denies any auditory hallucinations. Though content/process: There is evidence of delusional thought content and thought process is linear and goal-directed. Memory and concentration: AOX3, grossly intact for the purposes of this session. Judgment and insight: fair IMPRESSIONS: Bipolar I disorder r/o Bipolar I disorder manic with psychotic features Alcohol use disorder, severe, in remission Methamphetamine use disorder Cannabis use disorder, by history Cocaine use disorder in remission, by history Fracture of second metatarsal PLAN: -Patient is admitted under voluntary status to MHU for stabilization of psychiatric symptoms and safety. Patient continues to meet criteria for inpatient psychiatric admission for symptom stabilization and safety. -Medications: Abilify Maintena 400 mg IM q4 weeks given yesterday for mood stabilization. Continue Abilify 15 mg daily for mood/psychosis for now. Continue Klonopin 1 mg TID for anxiety. Continue [place] 450 mg BID for mood. Check [place] level and BMP on Sunday morning, and adjust dose as necessary. Decrease Zyprexa from 15 mg QHS to 5 mg QHS due to RLS, with plan to discontinue if RLS symptoms continue. Continue Lamictal 200 mg daily for mood stabilization. Continue Hydroxyzine 100 mg QHS for anxiety. Tylenol 650 mg Q6H PRN for foot pain. Avoid NSAIDs if possible due to [place]. Ice, rest, and orthopedic boot. Monitor for medication compliance and for any psychotropic medication side effects. Will continue to monitor ongoing response to treatment. Encouraged participation in milieu.
[2022-10-09 19:46] LABS: Glucose,Whole Blood 354 mg/dL (70-110)
[2022-10-09] MEDS: OLANZapine 5 MG TAB PO SCH (20:47)
[2022-10-09] MEDS: hydrOXYzine pamoate 25 MG CAP PO SCH (20:47)
[2022-10-09] MEDS: INSULIN DETEMIR (LEVEMIR) 100 UNIT/ML SYR SQ SCH (20:49)
[2022-10-09 23:10] LABS: Glucose,Whole Blood 160 mg/dL (70-110)
[2022-10-10] MEDS: ACETAMINOPHEN TAB 325 MG TAB PO PRN (07:35)
[2022-10-10 07:50] LABS: Glucose,Whole Blood 159 mg/dL (70-110)
[2022-10-10] MEDS: INSULIN ASPART (NovoLOG) 100 UNIT/ML VIAL SQ SCH ×4 (08:00→19:59)
[2022-10-10] MEDS: clonazePAM 1 MG TAB PO SCH ×3 (08:55→20:33)
[2022-10-10] MEDS: LIPASE 5,000/PROTEASE 17,000/AMYLASE 24,000 PO SCH ×3 (08:56→20:39)
[2022-10-10] MEDS: ARIPiprazole 15 MG TAB PO SCH (08:56)
[2022-10-10] MEDS: lamoTRIgine 100 MG TAB PO SCH (08:56)
--- NOTE | 2022-10-10 09:57 | P.PN ---
Subjective Progress Note Date: 10/09/22 Patient was reevaluated by medical staff as patient had been complaining of right foot pain with some ankle swelling and foot swelling for the last day or so. Patient is on the 3 [facility]. mental health unit and a right foot x-ray was ordered showing a fracture at the base of the second metatarsal with minimal lateral displacement of the distal fracture fragment and apparent sclerosis at the fracture margin with scattered degenerative changes of a few of the interphalangeal joints. These are degenerative changes at the first metatarsophalangeal joint and tarsometatarsal joint. Patient has been walking multiple laps around the unit all day every night for over a week and has been hospitalized for 8 days now. Recommend icing and/or heating and elevating and would consider Brennan wrapping although patient is currently on the psych unit and unable to obtain this for risk of suicide. Patient is not suicidal although these things are not allowed on the unit. Instructed nursing staff to provide an Brennan wrap on discharge and have ordered in order to for the right lower foot. Instructed the patient to follow-up with orthopedics outpatient and will provide resources on discharge. Review of systems: Constitutional: No reports of fatigue, fever, or chills Cardiovascular: No reports of chest pain or palpitations Respiratory: No reports of shortness of breath or cough GI: No reports of nausea, vomiting, or diarrhea : No reports of dysuria or retention Neurovascular: No reports of weakness or numbness All medications have been reviewed Gen: This is a 62-year-old female who is awake, alert and oriented 3, thin built, well-nourished HEENT: Head is atraumatic, normocephalic. Pupils equal, round. Sclerae is anicteric. NECK: Supple. No JVD. No lymphadenopathy. No thyromegaly. LUNGS: Clear to auscultation. No wheezes or rhonchi. No intercostal retraction s. HEART: Regular rate and rhythm. No murmur. ABDOMEN: Soft. Bowel sounds are present. No masses. No tenderness. EXTREMITIES: No pedal edema. No calf tenderness. Minimal right ankle tenderness on palpation with no obvious swelling or redness noted positive pedal pulses with cap refill less than 3 NEUROLOGICAL: Patient is awake, alert and oriented x3. Cranial nerves 2 through 12 are grossly intact. Assessment: Right foot fracture at the base of the second metatarsal with minimal lateral displacement of the distal fracture fragment with apparent sclerosis is noted on x-ray Diabetes mellitus, uncontrolled with hyper and hypoglycemia Continued ongoing nicotine dependence Noncompliance with medications Plan: Recommend an orthopedic shoe for the right foot and will provide resources for outpatient follow-up with orthopedics. Recommend Brennan wrap from the toes up to the knee and elevating while at rest and may use heat and ice. Unable to obtain an Brennan wrap while in the psych unit and discussed with nursing staff about providing 1 on discharge Recommend outpatient follow-up with primary care provider The impression and plan of care has been dictated by Racheal Barr, Nurse Practitioner as directed. Dr. Yvrose MD I have performed a history and examination and MDM of this patient, discussed the same with the dictator, and agree with the dictator's assessment and plan as written ,documented as a scribe. Based on total visit time, I have performed more than 50% of the visit. Objective - Vital Signs Vital signs: Vital Signs Temp 97.4 F L 10/09/22 06:38 Pulse 67 10/09/22 06:38 Resp 16 10/09/22 06:38 BP 105/58 10/09/22 06:38 Pulse Ox 97 10/09/22 06:38 FiO2 Intake & Output 10/08/22 10/09/22 10/09/22 18:59 06:59 18:59 Weight 64.524 kg - Labs Labs: Abnormal Lab Results - Last 24 Hours (Table) 10/08/22 10/08/22 10/09/22 Range/Units 17:49 19:35 07:40 POC Glucose (mg/dL) 185 H 336 H 174 H (70-110) mg/dL 10/09/22 Range/Units 12:38 POC Glucose (mg/dL) 175 H (70-110) mg/dL
[2022-10-10] MEDS: LITHIUM CARBONATE 150 MG CAP PO SCH ×2 (10:02→20:33)
[2022-10-10 10:25] LABS: Calcium 9.2 mg/dL (8.4-10.2); Lithium 0.9 mmol/L; Potassium 4.8 mmol/L (3.5-5.1)
[2022-10-10] MEDS: NICOTINE GUM (POLACRILEX) 2 MG GUM BUCCAL PRN ×2 (10:59→15:03)
[2022-10-10 12:55] LABS: Glucose,Whole Blood 142 mg/dL (70-110)
[2022-10-10] MEDS ORDERED: haloperidoL 1 MG TAB PO PRN (15:01)
[2022-10-10] MEDS ORDERED: HALOPERIDOL LACTATE 5 MG/ML 1 ML VIAL IM PRN (15:02)
[2022-10-10] MEDS ORDERED: LORazepam 1 MG TAB PO PRN (15:02)
[2022-10-10] MEDS ORDERED: LORazepam 2 MG/ML INJ IM PRN (15:04)
[2022-10-10 17:40] LABS: Glucose,Whole Blood 222 mg/dL (70-110)
[2022-10-10 19:57] LABS: Glucose,Whole Blood 170 mg/dL (70-110)
[2022-10-10] MEDS: hydrOXYzine pamoate 25 MG CAP PO SCH (20:33)
[2022-10-10] MEDS: OLANZapine 5 MG TAB PO SCH (20:33)
[2022-10-10] MEDS: INSULIN DETEMIR (LEVEMIR) 100 UNIT/ML SYR SQ SCH (20:34)
--- NOTE | 2022-10-10 20:52 | P.PN ---
Progress Note - Text Progress Note Date: 10/10/22 Interval history: Patient was seen today by promotion writer sitting on the bed and was agreeable to speak to promotion writer in the office. She continues to focus on requests discharge today, she claims that she is feeling better today. Patient claims that she wants to go to her [facility] today howevwr has not heard from [facility]. she claims thats she was able to get a bit better sleep last night. we spoke about her medications and she asked questions. At this time, patient denies any suicidal or homicidal ideation, intent or plan. She denies any auditory or visual hallucinations. she has been taking her medications and denies any side effects. Mental status exam: General Appearance: Patient appears to be stated age, dressed in casual attire, no makeup, hair is brushed Behavior: Patient is standing without any agitated behavior, mildly irritable Speech: Patient's speech is fluent and non-pressured Mood/Affect: Patient's mood is "a bit better", affect is congruent and constricted Suicidality/Homicidality: Patient denies having any homicidal ideation intent or plan. Denies any suicidal ideation, intent or plan Perceptions: Patient denies any visual hallucinations and denies any auditory hallucinations. Though content/process: There is evidence of delusional thought content and thought process is linear and goal-directed. concrete. Memory and concentration: AOX3, grossly intact for the purposes of this session. Judgment and insight: improving mildly IMPRESSIONS: Bipolar I disorder manic with psychotic features Alcohol use disorder, severe, in remission Methamphetamine use disorder Cannabis use disorder Cocaine use disorder in remission PLAN: -Patient is admitted under voluntary status to MHU for stabilization of psychiatric symptoms and safety. Patient continues to meet criteria for inpatient psychiatric admission for symptom stabilization and safety. -Medications: Abilify Maintena 400 mg IM q4 weeks 10/08/22 and next dose due on 11/06/22 Continue Abilify 15 mg daily for mood/psychosis Continue Klonopin 1 mg TID for anxiety. Continue [place] 450 mg BID for mood. lithium level 0.9 on 10/10/22 Decrease Zyprexa 5 mg QHS due to RLS Continue Lamictal 200 mg daily for mood stabilization. Continue Hydroxyzine 100 mg QHS for anxiety Monitor for medication compliance and for any psychotropic medication side effects. Will continue to monitor ongoing response to treatment. Encouraged participation in milieu. will dio working with [facility] to [facility]
[2022-10-11 06:11] VITALS: BP 143/78; PULSE 71; RESP 18; TEMP 97
[2022-10-11 07:35] LABS: Glucose,Whole Blood 156 mg/dL (70-110)
[2022-10-11] MEDS: LITHIUM CARBONATE 150 MG CAP PO SCH (08:17)
[2022-10-11] MEDS: LIPASE 5,000/PROTEASE 17,000/AMYLASE 24,000 PO SCH (08:17)
[2022-10-11] MEDS: ARIPiprazole 15 MG TAB PO SCH (08:18)
[2022-10-11] MEDS: lamoTRIgine 100 MG TAB PO SCH (08:18)
[2022-10-11] MEDS: clonazePAM 1 MG TAB PO SCH (08:18)
[2022-10-11] MEDS: INSULIN ASPART (NovoLOG) 100 UNIT/ML VIAL SQ SCH ×2 (08:19→12:52)
[2022-10-11] MEDS: NICOTINE GUM (POLACRILEX) 2 MG GUM BUCCAL PRN (11:23)
[2022-10-11 12:45] LABS: Glucose,Whole Blood 211 mg/dL (70-110)
--- NOTE | 2022-10-11 13:53 | P.DS ---
Providers Date of admission: 10/05/22 16:52 Expected date of discharge: 10/11/22 Attending physician: Tevin Mckeon MD Consults: 10/05/22 16:01 Consult Physician Routine Consulting Provider: Mark Anthony Mack Consult Reason/Comments: H and P Do you want consulting provider notified?: Yes Primary care physician: Cecilia Cortez - Discharge Diagnosis(es) (1) Bipolar disorder, current episode manic severe with psychotic features Current Visit: Yes Status: Acute Priority: High (2) Alcohol use disorder in remission Current Visit: Yes Status: Acute Priority: Medium (3) Methamphetamine use disorder, moderate Current Visit: Yes Status: Acute Priority: Medium (4) Cannabis use disorder Current Visit: Yes Status: Acute Priority: Medium (5) Cocaine use disorder in remission Current Visit: Yes Status: Acute Priority: Low Hospital Course: Admission HPI: Admission note was completed by Dr Jackson "Patient is a 62 year old female who lives at [facility] home. Patient presented to the hospital on 10/02/22 and admitted to inpatient psychiatry. On 10/04/22, patient was transferred to the medical floor d ue to [facility]. She was stabilized and returned to the psychiatry unit last night. I evaluated patient on 10/06/22.She is irritable and condescending. She states she does not want the ACT team. Reports she was in a good mood until she talked to the ACT team today. Everytime I talk to them they get me into a bad mood. She has a knife in her purse that she just purchased, someone called the police and said she put the knife to her damn throat. She says the staff at the [facility] home have the knife in the She says the knives were given to her. She states she is likely more intelligent than some of the people on the ACT team. She reports history of drug or alcohol use. She has been sober from alcohol for 5 years. She reports she has abused meth for 8 months and then relapsed in March 2022, and stopped again when she went to intermediate in April 2022, has been clean from meth since april 2022, does regular drug tests. Mood is "great until I got done talking to those assholes." She is compliant. Patient denies any suicidal or homicidal ideation, intent or plan. At this time patient denies any auditory or visual hallucinations. Her sleep is "pretty good" except for restless legs. She requests to go back on [place], Abilify, Klonopin and to lower the Zyprexa." Hospital course: Upon admission to the unit patient was admitted involuntarily on a petition and certificate and a second certificate was completed and faxed with the courts. Patient ended up signing a deferral with the estate planning attorney and agreeing to treatment. Patient got along well with other patients on the unit and followed unit protocol. Patient was compliant with the medications and denied any side effects throughout hospital course. Patient was started on Abilify by mouth 15 mg daily, she was transitioned onto Abilify Maintenna given 400 mg IM on 10/08 and will be due for monthly dose next on 11/06. [place] 450 mg daily for mood stabilization, Klonopin 1 mg 3 times a day for anxiety, Zyprexa 5 mg daily at bedtime for psychosis/mood stabilization/insomnia, Lamictal 200 mg daily for mood stabilization, hydroxyzine 100 mg daily at bedtime for anxiety. Patient spoke of his stressors and engaged in therapy both group and individual. Patient was also seen by medical team for history and physical exam. Patient had a lithium level drawn on 10/10 which was 0.9. Patient had a x-ray on her right foot on 10/09 which showed minimally dysphasic factor at the base of the second metatarsal Throughout the course of the hospitalization patient gradually improved with regards to mood stabilization, anxiety, psychosis, sleep and returned back to their baseline level of functioning. On the day of discharge patient denied any suicidal or homicidal ideations intent or plan denied any auditory or visual hallucinations. Patient endorsed wanting to live for her future and family. The patient denied any access to guns or weapons. Patient denied any paranoia and did not endorse any delusions. Patient does have a s ignificant history of substance abuse and was counseled on abstaining from all substances including alcohol and marijuana. Patient elected to do outpatient substance use treatment program through [facility]. Patient was also counseled on the medications and need for regular compliance and was encouraged to follow-up with their outpatient appointment for mental health and also for primary care. [Prior to discharge a meeting took place between typewriter aligner, clinical social work aide, [facility] team, ACT team and [facility] team and involved [place] on returning back to [facility] today. Mental status exam: General Appearance: Patient appears to be thin, stated age is alert, pleasant, and cooperative. Patient is in no acute distress and has improved hygiene and grooming Behavior: Patient is calmly seated without any agitated behavior. Speech: Patient's speech is fluent and nonpressured. Mood/Affect: Patient reports their mood is "good", affect is congruent and restricted Suicidality/Homicidality: Patient denies having any suicidal or homicidal ideation intent or plan. Perceptions: Patient denies any auditory or visual hallucinations. Though content/process: There is no evidence of any delusional thought content and thought process is linear and goal-directed. [place] Memory and concentration: AOX3, grossly intact for the purposes of this session. Can spell "WORLD" backwards correctly. Judgment and insight: chronically poor, however has improved with guarded prognosis Impression: Bipolar disorder manic episode severe with psychotic features Alcohol use disorder in remission Methamphetamine use disorder moderate Cannabis use disorder Cocaine use disorder in remission Plan: -Continue with discharge today as patient has improved and stabilized psychiatrically and is not currently an imminent threat to herself and/or others. Patient will remain at chronically elevated risk for harm to self and/or others due to her impulsivity and substance abuse. -Continue medications: Continue with Abilify by mouth 50 mg for 10 more days and discontinue. Patient was transitioned onto Abilify Maintenna 400 mg IM given on 10/08 and next dose will be due on 11/06. [place] 450 mg daily for mood stab ilization, Klonopin 1 mg 3 times a day for anxiety, Zyprexa 5 mg daily at bedtime for psychosis/mood stabilization/insomnia, Lamictal 200 mg daily for mood stabilization, hydroxyzine 100 mg daily at bedtime for anxiety. -Patient was counseled on the need for medication compliance and appropriate follow-up at mental health and also primary care for medical issues along with orthopeadic surgery for fractured foot. Patient verbalized understanding and agreed. -Social work to help arrange for patient's discharge today back to [facility]. Social work also to arrange for patients follow up appointments with [facility] for psychiatric care along with follow up with primary care provider. Patient will be continued to be monitored by act team. -Patient counseled on abstaining from recreational drugs and marijuana and alcohol. Was informed/educated on the adverse effects on their physical and mental health. Patient verbally agreed and understood. -Patient was instructed to return to the hospital or seek immediate medical care if their psychiatric or medical symptoms do worsen or reoccur. Allergies Allergy/AdvReac Type Severity Reaction Status Date / Time No Known Allergies Allergy Verified 10/05/22 17:20 Laboratory Results Sodium 138 mmol/L (137-145) 10/10/22 09:15 Potassium 4.8 mmol/L (3.5-5.1) 10/10/22 09:15 Chloride 104 mmol/L (98-107) 10/10/22 09:15 Carbon Dioxide 27 mmol/L (22-30) 10/10/22 09:15 Anion Gap 7 mmol/L 10/10/22 09:15 BUN 21 mg/dL (7-17) H 10/10/22 09:15 Creatinine 0.84 mg/dL (0.52-1.04) 10/10/22 09:15 Est GFR (CKD-EPI)AfAm 87 (>60 ml/min/1.73 sqM) 10/10/22 09:15 Est GFR (CKD-EPI)NonAf 75 (>60 ml/min/1.73 sqM) 10/10/22 09:15 Glucose 257 mg/dL (74-99) H 10/10/22 09:15 POC Glucose (mg/dL) 211 mg/dL (70-110) H 10/11/22 12:44 POC Glu Contract Project Manager ID 10/11/22 12:44 Calcium 9.2 mg/dL (8.4-10.2) 10/10/22 09:15 [place] 0.9 mmol/L 10/10/22 09:15 Vital Signs Temp 97.0 F L 10/11/22 06:11 Pulse 71 10/11/22 06:11 Resp 18 10/11/22 06:11 BP 143/78 10/11/22 06:11 Pulse Ox 98 10/10/22 02:09 FiO2 Patient Condition at Discharge: Stable Plan - Discharge Summary Discharge Rx Participant: No New Discharge Prescriptions: New ARIPiprazole [Abilify] 15 mg PO DAILY 10 Days #10 tab Albuterol Inhaler [Ventolin Hfa Inhaler] 2 puff INHALATION RT-QID PRN each PRN Reason: Shortness Of Breath Or Wheezing ARIPiprazole IM SYRINGE [Abilify Maintena Syringe] 400 mg IM Q28D #1 each clonazePAM [KlonoPIN] 1 mg PO TID 30 Days #90 tab [place] Carbonate 450 mg PO BID 30 Days #180 cap OLANZapine [ZyPREXA] 5 mg PO HS 30 Days #30 tab Continue Insulin Glargine,Hum.rec.anlog [Lantus Solostar Pen] 16 units SQ HS metFORMIN HCL ER [Glucophage XR] 1,000 mg PO BID sitaGLIPtin [Januvia] 100 mg PO DAILY glipiZIDE XL [Glucotrol XL] 10 mg PO DAILY #0 lamoTRIgine 200 mg PO DAILY 30 Days #30 tab Nicotine Gum (Polacrilex) [Nicorette] 2 mg BUCCAL Q2HR PRN 30 Days #360 pieceofgum PRN Reason: Nicotine Cravings hydrOXYzine pamoate [Vistaril] 100 mg PO HS 30 Days #60 cap Lipase/Protease/Amylase [Zenpep Dr 5,000 Unit Capsule] 2 cap PO TID Ergocalciferol (Vitamin D2) [Drisdol (50,000 Iu)] 1,250 mcg PO WEEKLY Acetaminophen Tab [Tylenol] 650 mg PO Q6HR PRN tab PRN Reason: Mild Pain Or Fever > 100.5 Discontinued fluPHENAZine decanoate [Prolixin Decanoate] 25 mg IM Q7D OLANZapine [ZyPREXA] 30 mg PO HS LORazepam [Ativan] 1 mg PO QID@08,12,17,21 Discharge Medication List Ergocalciferol (Vitamin D2) [Drisdol (50,000 Iu)] 1,250 mcg PO WEEKLY 10/04/22 [History] Insulin Glargine,Hum.rec.anlog [Lantus Solostar Pen] 16 units SQ HS 10/04/22 [Hi story] Lipase/Protease/Amylase [Zenpep Dr 5,000 Unit Capsule] 2 cap PO TID 10/04/22 [History] metFORMIN HCL ER [Glucophage XR] 1,000 mg PO BID 10/04/22 [History] sitaGLIPtin [Januvia] 100 mg PO DAILY 10/04/22 [History] Acetaminophen Tab [Tylenol] 650 mg PO Q6HR PRN tab 10/05/22 [Rx] glipiZIDE XL [Glucotrol XL] 10 mg PO DAILY #0 10/05/22 [Rx] ARIPiprazole IM SYRINGE [Abilify Maintena Syringe] 400 mg IM Q28D #1 each 10/11/22 [Rx] ARIPiprazole [Abilify] 15 mg PO DAILY 10 Days #10 tab 10/11/22 [Rx] Albuterol Inhaler [Ventolin Hfa Inhaler] 2 puff INHALATION RT-QID PRN each 10/11/22 [Rx] [place] Carbonate 450 mg PO BID 30 Days #180 cap 10/11/22 [Rx] Nicotine Gum (Polacrilex) [Nicorette] 2 mg BUCCAL Q2HR PRN 30 Days #360 pieceofgum 10/11/22 [Rx] OLANZapine [ZyPREXA] 5 mg PO HS 30 Days #30 tab 10/11/22 [Rx] clonazePAM [KlonoPIN] 1 mg PO TID 30 Days #90 tab 10/11/22 [Rx] hydrOXYzine pamoate [Vistaril] 100 mg PO HS 30 Days #60 cap 10/11/22 [Rx] lamoTRIgine 200 mg PO DAILY 30 Days #30 tab 10/11/22 [Rx] Follow up Appointment(s)/Referral(s): [facility] [Outside] - 10/24/22 3:00 pm (10/24/2022 3:00PM - 3:30PM JENNIFER NAYLOR ) Floyd Mitchell DPM [Doctor of Osteopathic Medicine] - 1 Week Patient Instructions/Handouts: How to Stop Smoking (DC), Bipolar Disorder (DC), Polysubstance Abuse (ED) Activity/Diet/Wound Care/Special Instructions: Avoid the use of street drugs and alcohol. Take all medications as prescribed. When you are in need of refills on your medications, please contact your medical provider and/or outpatient psychiatrist to have this done. Please go to scheduled outpatient appointments for aftercare treatment. If symptoms return or become worse, call the crisis line at and/or go to the nearest emergency room for evaluation. Recommend follow-up with primary care provider as well as orthopedics with resources provided on discharge Closely monitor blood sugars and continue current regimen May continue or to shoe on the right foot and outpatient follow-up with orthopedics and recommended continued ice and/or heat the area and elevate while at rest Recommend continue Tylenol for pain 650 mg every 6 hours as needed Discharge Disposition: OTHER INSTITUTION NOT DEFINED
== END 2022-10-11 14:33 | disposition home or self-care (01) | DRG 753 ==
LOC: 3MHU 16:52
PROVIDERS: ADMIT Psychiatry & Neurology Psychiatry; ATTEND Psychiatry & Neurology Psychiatry
DX: F31.2 Bipolar disorder, current episode manic severe with psychotic features (principal); E11.649 Type 2 diabetes mellitus with hypoglycemia without coma; Z91.148 Patient's other noncompliance with medication regimen for other reason; F10.21 Alcohol dependence, in remission; F14.11 Cocaine abuse, in remission; F15.10 Other stimulant abuse, uncomplicated; E11.65 Type 2 diabetes mellitus with hyperglycemia; G25.81 Restless legs syndrome; E78.5 Hyperlipidemia, unspecified; R47.02 Dysphasia; S92.324A Nondisplaced fracture of second metatarsal bone, right foot, initial encounter for closed fracture; M79.89 Other specified soft tissue disorders; M25.473 Effusion, unspecified ankle; S92.323A Displaced fracture of second metatarsal bone, unspecified foot, initial encounter for closed fracture; F17.210 Nicotine dependence, cigarettes, uncomplicated; T50.916A Underdosing of multiple unspecified drugs, medicaments and biological substances, initial encounter; Z81.8 Family history of other mental and behavioral disorders; Z79.899 Other long term (current) drug therapy; Z91.51 Personal history of suicidal behavior; Z91.52 Personal history of nonsuicidal self-harm; Z79.4 Long term (current) use of insulin; Z79.84 Long term (current) use of oral hypoglycemic drugs
CPT/HCPCS: 80048; 80178

== ENCOUNTER 2022-10-18 15:44 | Inpatient (IN) | payer OTHER ==
[2022-10-18] MEDS ORDERED: SODIUM CHLORIDE 0.9% 500 ML 500 ML IV STA (17:21)
--- NOTE | 2022-10-18 17:37 | ED ---
Weakness HPI - General Chief complaint: Weakness Stated complaint: lethargic Time Seen by Provider: 10/18/22 17:15 Source: patient Mode of arrival: ambulatory - History of Present Illness Initial comments: Patient is a 62-year-old female presenting with chief complaint of "I'm just not feeling well". Patient reports that she has been sleeping more frequently. She reports nausea and vomiting. States that this has been ongoing for a few days. Patient notes starting lithium about a week or 2 ago. She also states that "my urine smells very strongly". She denies any chest pain, difficulty breathing, palpitations, numbness, tingling, fever, chills, headache, vision or hearing changes. - Related Data Home Medications Medication Instructions Recorded Confirmed Ergocalciferol (Vitamin D2) 1,250 mcg PO WE@0800 10/04/22 10/18/22 [Drisdol (50,000 Iu)] Insulin Glargine,Hum.rec.anlog 16 units SQ HS@209910/04/22 10/18/22 [Lantus Solostar Pen] Lipase/Protease/Amylase [Zenpep Dr 2 cap PO TID@0800,1700,209910/04/22 10/18/22 5,000 Unit Capsule] metFORMIN HCL ER [Glucophage XR] 1,000 mg PO BID@0800,1700 10/04/22 10/18/22 sitaGLIPtin [Januvia] 100 mg PO DAILY@0800 10/04/22 10/18/22 ARIPiprazole [Abilify] 15 mg PO DAILY@0800 10/18/22 10/18/22 Lamoni Carbonate 450 mg PO BID@0800,209910/18/22 10/18/22 OLANZapine [ZyPREXA] 5 mg PO HS@209910/18/22 10/18/22 clonazePAM [KlonoPIN] 1 mg PO TID@0800,1600,209910/18/22 10/18/22 glipiZIDE XL [Glucotrol XL] 20 mg PO W/BRKFST 10/18/22 10/18/22 hydrOXYzine pamoate [Vistaril] 100 mg PO HS@199910/18/22 10/18/22 lamoTRIgine 200 mg PO DAILY@0810/18/22 10/18/22 Previous Rx's Medication Instructions Recorded ARIPiprazole IM SYRINGE [Abilify 400 mg IM Q28D #1 each 10/11/22 Maintena Syringe] Albuterol Inhaler [Ventolin Hfa 2 puff INHALATION RT-QID PRN each 10/11/22 Inhaler] Nicotine Gum (Polacrilex) 2 mg BUCCAL Q2HR PRN 30 Days #360 10/11/22 [Nicorette] pieceofgum Allergies Allergy/AdvReac Type Severity Reaction Status Date / Time No Known Allergies Allergy Verified 10/18/22 19:32 Review of Systems ROS Statement: Those systems with pertinent positive or pertinent negative responses have been documented in the HPI. ROS Other: All systems not noted in ROS Statement are negative. 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 6, chronic bronchitis recent fall with 7 left rib fractures, hematoma to right forehead in past, History of Any Multi-Drug Resistant Organisms: MRSA Date of last positivie culture/infection: 10/20/21 MDRO Source:: Head Past Surgical History: Appendectomy Additional Past Surgical History / Comment(s): CYST REMOVED FROM NECK, RT 3RD/4TH FINGER PARTIAL AMP D/T INJURY, lt ureter stent, COLONOSCOPY/POLYPECTOMY Past Anesthesia/Blood Transfusion Reactions: No Reported Reaction, Motion Sickness, Postoperative Nausea & Vomiting (PONV) Past Psychological History: Anxiety, Bipolar, Depression, PTSD, Schizophrenia Smoking Status: Current every day smoker Past Alcohol Use History: None Reported Past Drug Use History: Methamphetamine, Prescription Drug Abuse - Past Family History Father Family Medical History: Liver Disease Additional Family Medical History / Comment(s): Father at age 78 from cirrhosis of the liver. Mother Family Medical History: No Reported History Additional Family Medical History / Comment(s): Mother is alive in her 80s Sister(s) Family Medical History: Coronary Artery Disease (CAD) Additional Family Medical History / Comment(s): Patient has 2 sisters and one has from an overdose. She has 1 brother with no major medical problems. 4cm aortic aneurysm General Exam Limitations: no limitations General appearance: alert, in no apparent distress Head exam: Present: atraumatic, normocephalic, normal inspection Eye exam: Present: normal appearance, EOMI. Absent: scleral icterus, periorbital swelling Neck exam: Present: normal inspection, full ROM Respiratory exam: Present: normal lung sounds bilaterally. Absent: respiratory distress, wheezes, rales, rhonchi, stridor Cardiovascular Exam: Present: regular rate, normal rhythm, normal heart sounds. Absent: systolic murmur, diastolic murmur, rubs, gallop, clicks GI/Abdominal exam: Present: soft, tenderness. Absent: distended, guarding, rebound, rigid Neurological exam: Present: alert, oriented X3, CN II-XII intact Psychiatric exam: Present: normal affect, normal mood Skin exam: Present: warm, dry, intact, normal color. Absent: rash Course Vital Signs 10/18/22 10/18/22 16:26 20:50 Temperature 98.2 F Pulse Rate 80 75 Respiratory 16 18 Rate Blood Pressure 134/86 107/60 O2 Sat by Pulse 100 99 Oximetry EKG Findings - EKG Comments: EKG Findings:: Sinus rhythm with first-degree AV block. Ventricular rate 77. NE interval 214. QRS 98. QT 389. QTc 420. There appears to be some ST jeniffer vation in V1 and V2. Medical Decision Making - Medical Decision Making Was pt. sent in by a medical professional or institution (, PA, DOCK MANAGER, urgent care, hospital, or care home...) When possible be specific @ -No Did you speak to anyone other than the patient for history (EMS, parent, family, police, friend...)? What history was obtained from this source @ -No Did you review nursing and triage notes (agree or disagree)? Why? @ -I reviewed and agree with nursing and triage notes Were old charts reviewed (outside hosp., previous admission, EMS record, old EKG, old radiological studies, urgent care reports/EKG's, care home records)? Report findings @ -No old charts were reviewed Differential Diagnosis (chest pain, altered mental status, abdominal pain women, abdominal pain men, vaginal bleeding, weakness, fever, dyspnea, syncope, headache, dizziness, GI bleed, back pain, seizure, CVA, palpatations, mental health, musculoskeletal)? @ -MDM Differential Weakness: Hypoglycemia, shock, sepsis, hyponatremia, anemia, infection, TX, ETOH, adverse medicine reaction, overdose, stroke. ... This is not meant to be an all- inclusive list EKG interpreted by me (3pts min.). @ -As above X-rays interpreted by me (1pt min.). @ -chest X-ray shows no acute process CT interpreted by me (1pt min.). @ -None done U/S interpreted by me (1pt. min.). @ -None done What testing was considered but not performed or refused? (CT, X-rays, U/S, labs)? Why? @ -None What meds were considered but not given or refused? Why? @ -None Did you discuss the management of the patient with other professionals (professionals i.e. , PA, DOCK MANAGER, lab, RT, psych nurse, social science manager, brine mixer operator, teacher, juvenile justice officer, shelter case manager)? Give summary @ -Discussed details with Dr. Goldstein who accepted admission Was smoking cessation discussed for >3mins.? @ -No Was critical care preformed (if so, how long)? @ -No Were there social determinants of health that impacted care today? How? (Homelessness, low income, unemployed, alcoholism, drug addiction, transportation, low edu. Level, literacy, decrease access to med. care, intermediate, rehab)? @ -No Was there de-escalation of care discussed even if they declined (Discuss DNR or withdrawal of care, Hospice)? DNR status @ -No What co-morbidities impacted this encounter? (DM, HTN, Smoking, COPD, CAD, Cancer, CVA, ARF, Chemo, Hep., AIDS, mental health diagnosis, sleep apnea, morbid obesity)? @ -None Was patient admitted / discharged? Hospital course, mention meds given and route, prescriptions, significant lab abnormalities, going to OR and other pertinent info. @ -Patient is a 62-year-old female presenting with chief complaint of "I just don't feel well. She has been experiencing nausea, vomiting, fatigue, generalized weakness. Physical examination is unremarkable. Lab work shows WBC 12.2, urine shows evidence of UTI patient is treated with Rocephin. Lamoni level is 1.9, will withhold next dose and start patient on IV fluids. Lactic acid is 2.7, likely due to dehydration. Troponin is negative. EKG shows evidence of ST elevation in leads V1 and V2, repeat EKG confirms this finding. Patient will be admitted for observation. Cardiology is consulted. I spoke with Dr. goldstein who accepted admission. Patient is agreeable with this plan. I discussed this case with my attending Dr. Cavanaugh Undiagnosed new problem with uncertain prognosis? @ -No Drug Therapy requiring intensive monitoring for toxicity (Heparin, Nitro, Insulin, Cardizem)? @ -No Were any procedures done? @ -No Diagnosis/symptom? @ -UTI Acute, or Chronic, or Acute on Chronic? @ -Acute Uncomplicated (without systemic symptoms) or Complicated (systemic symptoms)? @ -Complicated Side effects of treatment? @ -No Exacerbation, Progression, or Severe Exacerbation? @ -No Poses a threat to life or bodily function? How? (Chest pain, [place], [place], pneumonia, PE, COPD, DKA, ARF, appy, cholecystitis, CVA, Diverticulitis, Homicidal, Suicidal, threat to staff... and all critical care pts) @ -yes Diagnosis/symptom? @EKG changes Acute, or Chronic, or Acute on Chronic? @Acute Uncomplicated (without systemic symptoms) or Complicated (systemic symptoms)? @Uncomplicated Side effects of treatment? @ none Exacerbation, Progression, or Severe Exacerbation] @ no Poses a threat to life or bodily function? @ yes Diagnosis/symptom? @Elevated lithium level Acute, or Chronic, or Acute on Chronic? @acute Uncomplicated (without systemic symptoms) or Complicated (systemic symptoms)? @, Complicated Side effects of treatment? @ none Exacerbation, Progression, or Severe Exacerbation] @ no Poses a threat to life or bodily function? @ yes - Lab Data Result diagrams: 10/18/22 18:01 10/18/22 18:01 Lab Results 10/18/22 10/18/22 10/18/22 Range/Units 18:01 18:01 18:01 WBC 12.2 H (3.8-10.6) k/uL RBC 4.07 (3.80-5.40) m/uL Hgb 11.6 (11.4-16.0) gm/dL Hct 36.0 (34.0-46.0) % MCV 88.3 (80.0-100.0) fL MCH 28.4 (25.0-35.0) pg MCHC 32.2 (31.0-37.0) g/dL RDW 14.6 (11.5-15.5) % Plt Count 396 (150-450) k/uL MPV 7.6 Neutrophils % 71 % Lymphocytes % 23 % Monocytes % 4 % Eosinophils % 0 % Basophils % 0 % Neutrophils # 8.7 H (1.3-7.7) k/uL Lymphocytes # 2.8 (1.0-4.8) k/uL Monocytes # 0.4 (0-1.0) k/uL Eosinophils # 0.0 (0-0.7) k/uL Basophils # 0.0 (0-0.2) k/uL PT 9.8 (9.0-12.0) sec INR 0.9 (<1.2) APTT 26.6 (22.0-30.0) sec Sodium 136 L (137-145) mmol/L Potassium 4.3 (3.5-5.1) mmol/L Chloride 99 (98-107) mmol/L Carbon Dioxide 25 (22-30) mmol/L Anion Gap 12 mmol/L BUN 21 H (7-17) mg/dL Creatinine 1.08 H (0.52-1.04) mg/dL Est GFR (CKD-EPI)AfAm 64 (>60 ml/min/1.73 sqM) Est GFR (CKD-EPI)NonAf 56 (>60 ml/min/1.73 sqM) Glucose 201 H (74-99) mg/dL Lactic Ac Sepsis Rflx Plasma Lactic Acid Timi (0.7-2.0) mmol/L Calcium 10.6 H (8.4-10.2) mg/dL Phosphorus 4.4 (2.5-4.5) mg/dL Magnesium 1.7 (1.6-2.3) mg/dL Total Bilirubin 0.2 (0.2-1.3) mg/dL AST 53 H (14-36) U/L ALT 48 H (4-34) U/L Alkaline Phosphatase 132 H (38-126) U/L Troponin I (0.000-0.034) ng/mL Total Protein 7.1 (6.3-8.2) g/dL Albumin 4.2 (3.5-5.0) g/dL TSH 2.710 (0.465-4.680) mIU/L Urine Color Urine Appearance (Clear) Urine pH (5.0-8.0) Ur Specific [place] (1.001-1.035) Urine Protein (Negative) Urine Glucose (UA) (Negative) Urine Ketones (Negative) Urine Blood (Negative) Urine Nitrite (Negative) Urine Bilirubin (Negative) Urine Urobilinogen (<2.0) mg/dL Ur Leukocyte Esterase (Negative) Urine RBC (0-5) /hpf Urine WBC (0-5) /hpf Ur Squamous Epith Cells (0-4) /hpf Urine Bacteria (None) /hpf Urine Mucus (None) /hpf Lamoni mmol/L Influenza Type A (PCR) (Not Detectd) Influenza Type B (PCR) (Not Detectd) RSV (PCR) (Not Detectd) SARS-CoV-2 (PCR) (Not Detectd) 10/18/22 10/18/22 10/18/22 Range/Units 18:01 18:01 18:01 WBC (3.8-10.6) k/uL RBC (3.80-5.40) m/uL Hgb (11.4-16.0) gm/dL Hct (34.0-46.0) % MCV (80.0-100.0) fL MCH (25.0-35.0) pg MCHC (31.0-37.0) g/dL RDW (11.5-15.5) % Plt Count (150-450) k/uL MPV Neutrophils % % Lymphocytes % % Monocytes % % Eosinophils % % Basophils % % Neutrophils # (1.3-7.7) k/uL Lymphocytes # (1.0-4.8) k/uL Monocytes # (0-1.0) k/uL Eosinophils # (0-0.7) k/uL Basophils # (0-0.2) k/uL PT (9.0-12.0) sec INR (<1.2) APTT (22.0-30.0) sec Sodium (137-145) mmol/L Potassium (3.5-5.1) mmol/L Chloride (98-107) mmol/L Carbon Dioxide (22-30) mmol/L Anion Gap mmol/L BUN (7-17) mg/dL Creatinine (0.52-1.04) mg/dL Est GFR (CKD-EPI)AfAm (>60 ml/min/1.73 sqM) Est GFR (CKD-EPI)NonAf (>60 ml/min/1.73 sqM) Glucose (74-99) mg/dL Lactic Ac Sepsis Rflx Plasma Lactic Acid Timi 2.7 H* (0.7-2.0) mmol/L Calcium (8.4-10.2) mg/dL Phosphorus (2.5-4.5) mg/dL Magnesium (1.6-2.3) mg/dL Total Bilirubin (0.2-1.3) mg/dL AST (14-36) U/L ALT (4-34) U/L Alkaline Phosphatase (38-126) U/L Troponin I <0.012 (0.000-0.034) ng/mL Total Protein (6.3-8.2) g/dL Albumin (3.5-5.0) g/dL TSH (0.465-4.680) mIU/L Urine Color Yellow Urine Appearance Clear (Clear) Urine pH 5.5 (5.0-8.0) Ur Specific [place] 1.018 (1.001-1.035) Urine Protein Trace H (Negative) Urine Glucose (UA) Negative (Negative) Urine Ketones Negative (Negative) Urine Blood Negative (Negative) Urine Nitrite Negative (Negative) Urine Bilirubin Negative (Negative) Urine Urobilinogen <2.0 (<2.0) mg/dL Ur Leukocyte Esterase Small H (Negative) Urine RBC <1 (0-5) /hpf Urine WBC 33 H (0-5) /hpf Ur Squamous Epith Cells <1 (0-4) /hpf Urine Bacteria Rare H (None) /hpf Urine Mucus Rare H (None) /hpf Lamoni mmol/L Influenza Type A (PCR) (Not Detectd) Influenza Type B (PCR) (Not Detectd) RSV (PCR) (Not Detectd) SARS-CoV-2 (PCR) (Not Detectd) 10/18/22 10/18/22 10/18/22 Range/Units 18:01 18:01 18:41 WBC (3.8-10.6) k/uL RBC (3.80-5.40) m/uL Hgb (11.4-16.0) gm/dL Hct (34.0-46.0) % MCV (80.0-100.0) fL MCH (25.0-35.0) pg MCHC (31.0-37.0) g/dL RDW (11.5-15.5) % Plt Count (150-450) k/uL MPV Neutrophils % % Lymphocytes % % Monocytes % % Eosinophils % % Basophils % % Neutrophils # (1.3-7.7) k/uL Lymphocytes # (1.0-4.8) k/uL Monocytes # (0-1.0) k/uL Eosinophils # (0-0.7) k/uL Basophils # (0-0.2) k/uL PT (9.0-12.0) sec INR (<1.2) APTT (22.0-30.0) sec Sodium (137-145) mmol/L Potassium (3.5-5.1) mmol/L Chloride (98-107) mmol/L Carbon Dioxide (22-30) mmol/L Anion Gap mmol/L BUN (7-17) mg/dL Creatinine (0.52-1.04) mg/dL Est GFR (CKD-EPI)AfAm (>60 ml/min/1.73 sqM) Est GFR (CKD-EPI)NonAf (>60 ml/min/1.73 sqM) Glucose (74-99) mg/dL Lactic Ac Sepsis Rflx Y Plasma Lactic Acid Timi (0.7-2.0) mmol/L Calcium (8.4-10.2) mg/dL Phosphorus (2.5-4.5) mg/dL Magnesium (1.6-2.3) mg/dL Total Bilirubin (0.2-1.3) mg/dL AST (14-36) U/L ALT (4-34) U/L Alkaline Phosphatase (38-126) U/L Troponin I (0.000-0.034) ng/mL Total Protein (6.3-8.2) g/dL Albumin (3.5-5.0) g/dL TSH (0.465-4.680) mIU/L Urine Color Urine Appearance (Clear) Urine pH (5.0-8.0) Ur Specific [place] (1.001-1.035) Urine Protein (Negative) Urine Glucose (UA) (Negative) Urine Ketones (Negative) Urine Blood (Negative) Urine Nitrite (Negative) Urine Bilirubin (Negative) Urine Urobilinogen (<2.0) mg/dL Ur Leukocyte Esterase (Negative) Urine RBC (0-5) /hpf Urine WBC (0-5) /hpf Ur Squamous Epith Cells (0-4) /hpf Urine Bacteria (None) /hpf Urine Mucus (None) /hpf Lamoni 1.9 H* mmol/L Influenza Type A (PCR) Not Detected (Not Detectd) Influenza Type B (PCR) Not Detected (Not Detectd) RSV (PCR) Not Detected (Not Detectd) SARS-CoV-2 (PCR) Not Detected (Not Detectd) Disposition Clinical Impression: UTI (urinary tract infection), Weakness, Elevated lithium level, Acute electrocardiogram changes Disposition: ADMITTED IP TO THIS [facility] Condition: Fair Time of Disposition: 20:39
[2022-10-18 18:15] LABS: Basophils % (A) 0 %; Eosinophils % (A) 0 %; HGB 11.6 gm/dL (11.4-16.0); Lymphocytes # (A) 2.8 k/uL (1.0-4.8); Lymphocytes % (A) 23 %; MCH 28.4 pg (25.0-35.0); MCHC 32.2 g/dL (31.0-37.0); MCV 88.3 fL (80.0-100.0); Mean Platelet Volume 7.6; Monocytes # (A) 0.4 k/uL (0-1.0); Monocytes % (A) 4 %; Neutrophils # (A) 8.7 k/uL (1.3-7.7); Neutrophils % (A) 71 %; Platelet Count 396 k/uL (150-450); RBC 4.07 m/uL (3.80-5.40); RDW 14.6 % (11.5-15.5); WBC 12.2 k/uL (3.8-10.6)
--- NOTE | 2022-10-18 18:22 | XR ---
EXAMINATION TYPE: XR chest 2V DATE OF EXAM: 10/18/2022 6:13 PM COMPARISON: Chest radiographs from 08/26/2022 TECHNIQUE: XR chest 2V Frontal and lateral views of the chest. CLINICAL INDICATION:Female, 62 years old with history of Weakness; FINDINGS: Lungs/Pleura: There is flattening of the diaphragm with increased lucency of the lungs. No evidence o f pneumothorax, pleural effusion or focal consolidation. Pulmonary vascularity: Unremarkable. Heart/mediastinum: Cardiomediastinal silhouette is unremarkable. Musculoskeletal: No acute osseous pathology. IMPRESSION: 1. No acute cardiopulmonary disease process. 2. COPD changes.
[2022-10-18 18:24] LABS: INR 0.9 (<1.2); Partial Thromboplastin Time 26.6 sec (22.0-30.0); Prothrombin Time 9.8 sec (9.0-12.0)
[2022-10-18 18:33] LABS: Appearance,Urine Clear (Clear); Bacteria,Urine Rare /hpf; Bilirubin,Urine Negative (Negative); Blood,Urine Negative (Negative); Color,Urine Yellow; Glucose,Urine (UA) Negative (Negative); Ketones,Urine Negative (Negative); Leukocyte Esterase,Urine Small (Negative); Mucus,Urine Rare /hpf; Nitrite,Urine Negative (Negative); PH, Urine 5.5 (5.0-8.0); Protein,Urine Trace (Negative); RBC,Urine <1 /hpf (0-5); Specific Gravity,Urine 1.018 (1.001-1.035); Squamous Epithelial Cell,Urine <1 /hpf (0-4); Urobilinogen,Urine <2.0 mg/dL (<2.0); WBC,Urine 33 /hpf (0-5)
[2022-10-18 18:35] LABS: ALT 48 U/L (4-34); AST 53 U/L (14-36); African American GFR (CKD) 64 (>60 ml/min/1.73 sqM); Albumin 4.2 g/dL (3.5-5.0); Alkaline Phosphatase 132 U/L (38-126); Anion Gap 12 mmol/L; Blood Urea Nitrogen 21 mg/dL (7-17); Calcium 10.6 mg/dL (8.4-10.2); Carbon Dioxide 25 mmol/L (22-30); Chloride 99 mmol/L (98-107); Glucose 201 mg/dL (74-99); Magnesium 1.7 mg/dL (1.6-2.3); Non-African American GFR(CKD) 56 (>60 ml/min/1.73 sqM); Phosphorus 4.4 mg/dL (2.5-4.5); Potassium 4.3 mmol/L (3.5-5.1); Sodium 136 mmol/L (137-145); Total Bilirubin 0.2 mg/dL (0.2-1.3); Total Protein 7.1 g/dL (6.3-8.2)
[2022-10-18] MEDS ORDERED: cefTRIAXone IN SWFI 1,000 MG/10 ML SYRINGE IVP STA (19:44)
[2022-10-18] MEDS ORDERED: SODIUM CHLORIDE 0.9% 500 ML 500 ML IV ONE (20:25)
[2022-10-18] MEDS ORDERED: NALOXONE 0.4 MG/ML 1 ML VIAL IV PRN (20:39)
[2022-10-18] MEDS: SODIUM CHLORIDE 0.9% 1,000 ML IV SCH (20:53)
[2022-10-19] MEDS: SODIUM CHLORIDE 0.9% 1,000 ML IV SCH ×3 (03:57→20:40)
[2022-10-19 05:57] LABS: Glucose,Whole Blood 104 mg/dL (70-110)
[2022-10-19] MEDS ORDERED: ALBUTEROL NEBULIZED 2.5 MG/3 ML INHALATION PRN (07:11)
[2022-10-19] MEDS ORDERED: DEXTROSE 50% SYRINGE 50 ML IVP PRN ×2 (07:13)
[2022-10-19] MEDS ORDERED: ONDANSETRON 4 MG/2 ML VIAL IVP STA (07:54)
[2022-10-19] MEDS ORDERED: ONDANSETRON 4 MG/2 ML VIAL IVP PRN (07:54)
--- NOTE | 2022-10-19 07:54 | P.HPIM ---
History of Present Illness This is a pleasant 62 years old female with multiple medical problems as below Patient presents because she's been shaking, she was feeling sick to her stomach with nausea and she vomited once yesterday with no blood, she was feeling not well and lethargic and sleepy follow-up over the last 4 days. Patient also she was started on the lithium by her psychiatrist about 1.5 weeks ago for her bipolar disorder, patient was not sure about she thinks she was taken what she supposed to be taking 450 mg twice a day. She denies overdosing purposely, she denies suicidal ideation. She has mild periumbilical abdominal pain about 7/10 in severity, with abdomen soft nontender no guarding. Patient is able to eat. She denies diarrhea or constipation. She denies other symptoms no chest pain or dyspnea, she denies UTI signs symptoms like no dysuria or change in frequency but she thinks that her urine smells stinks, she denies headache dizziness weakness or numbness She smokes 1 pack per day and she was counseled to quit, she declines so she declines nicotine patch when offered. She denies alcohol or illicit drugs She denies signs and symptoms of depression, no hot plus the/helplessness, no hallucination or delusions. She denies suicidal or homicidal ideation Vitals are stable That showed mild leukocytosis of 12.2, sodium 136, creatinine 1.08. Glucose 104 this morning. Mildly elevated lactic acid came back to normal Bilirubin is normal. AST is mildly elevated 53 and ALT slightly elevated 48. Troponin is negative. TSH is normal 2.7. Urine analysis showing small leukocyte esterase and WBCs 33. Please see him level is 1.9. Viruses are undetected including influenza, RSV and coronavirus EKG showing normal sinus rhythm at [address]-T changes. QTC 420. RSR' are in the 1 and V2 and V3, rule out Brugada Chest x-ray: No acute changes. COPD Patient was started on aggressive hydration after 2 L of normal saline 30 mL per hour and received 1 dose of Rocephin for possible UTI. Review of Systems Review of systems CONSTITUTIONAL: No fever, no malaise, no fatigue. HEENT: No recent visual problems or hearing problems. Denied any sore throat. CARDIOVASCULAR: No orthopnea, PND, no palpitations, no syncope. PULMONARY: No shortness of breath, no cough, no hemoptysis. GASTROINTESTINAL: No diarrhea, no nausea, no vomiting, no abdominal pain. Normoactive bowel sounds. NEUROLOGICAL: No headaches, no weakness, no numbness. HEMATOLOGICAL: Denies any bleeding or petechiae. GENITOURINARY: Denies any burning micturition, frequency, or urgency. MUSCULOSKELETAL/RHEUMATOLOGICAL: Denies any joint pain, swelling, or any muscle pain. ENDOCRINE: Denies any polyuria or polydipsia. 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 6, chronic bronchitis recent fall with 7 left rib fractures, hematoma to right forehead in past, History of Any Multi-Drug Resistant Organisms: MRSA Date of last positivie culture/infection: 10/20/21 MDRO Source:: Head Past Surgical History: Appendectomy Additional Past Surgical History / Comment(s): CYST REMOVED FROM NECK, RT 3RD/4TH FINGER PARTIAL AMP D/T INJURY, lt ureter stent, COLONOSCOPY/POLYPECTOMY Past Anesthesia/Blood Transfusion Reactions: No Reported Reaction, Motion Sickness, Postoperative Nausea & Vomiting (PONV) Past Psychological History: Anxiety, Bipolar, Depression, PTSD, Schizophrenia Smoking Status: Current every day smoker Past Alcohol Use History: None Reported Past Drug Use History: Methamphetamine, Prescription Drug Abuse - Past Family History Father Family Medical History: Liver Disease Additional Family Medical History / Comment(s): Father at age 78 from cirrhosis of the liver. Mother Family Medical History: No Reported History Additional Family Medical History / Comment(s): Mother is alive in her 80s Sister(s) Family Medical History: Coronary Artery Disease (CAD) Additional Family Medical History / Comment(s): Patient has 2 sisters and one has from an overdose. She has 1 brother with no major medical problems. 4cm aortic aneurysm Medications and Allergies Home Medications Medication Instructions Recorded Confirmed Type Ergocalciferol (Vitamin D2) 1,250 mcg PO WE@0800 10/04/22 10/18/22 History [Drisdol (50,000 Iu)] Insulin Glargine,Hum.rec.anlog 16 units SQ HS@209910/04/22 10/18/22 History [Lantus Solostar Pen] Lipase/Protease/Amylase [Zenpep Dr 2 cap PO TID@0800,1700,2100 10/04/22 10/18/22 History 5,000 Unit Capsule] metFORMIN HCL ER [Glucophage XR] 1,000 mg PO BID@0800,1700 10/04/22 10/18/22 History sitaGLIPtin [Januvia] 100 mg PO DAILY@0800 10/04/22 10/18/22 History ARIPiprazole IM SYRINGE [Abilify 400 mg IM Q28D #1 each 10/11/22 10/18/22 Rx Maintena Syringe] Albuterol Inhaler [Ventolin Hfa 2 puff INHALATION RT-QID PRN each 10/11/22 10/18/22 Rx Inhaler] Nicotine Gum (Polacrilex) 2 mg BUCCAL Q2HR PRN 30 Days #360 10/11/22 10/18/22 Rx [Nicorette] pieceofgum ARIPiprazole [Abilify] 15 mg PO DAILY@0800 10/18/22 10/18/22 History [place] Carbonate 450 mg PO BID@0800,209910/18/22 10/18/22 History OLANZapine [ZyPREXA] 5 mg PO HS@209910/18/22 10/18/22 History clonazePAM [KlonoPIN] 1 mg PO TID@0800,1600,209910/18/22 10/18/22 History glipiZIDE XL [Glucotrol XL] 20 mg PO W/BRKFST 10/18/22 10/18/22 History hydrOXYzine pamoate [Vistaril] 100 mg PO HS@199910/18/22 10/18/22 History lamoTRIgine 200 mg PO DAILY@0800 10/18/22 10/18/22 History Allergies Allergy/AdvReac Type Severity Reaction Status Date / Time No Known Allergies Allergy Verified 10/18/22 19:32 Physical Exam Vitals: Vital Signs Temp Pulse Pulse Resp BP BP Pulse Ox 10/19/22 03:46 97.7 F 64 16 94/61 95 10/19/22 00:00 97.8 F 71 16 112/72 98 10/18/22 22:30 97.5 F L 75 16 123/78 99 10/18/22 20:50 75 18 107/60 99 10/18/22 16:26 98.2 F 80 16 134/86 100 Intake and Output 10/18/22 10/18/22 10/19/22 14:59 22:59 06:59 Intake Total 10 Balance 10 Intake: IV 10 Invasive Line 1 10 Other: Voiding Method Toilet # Voids 1 1 Weight 63.049 kg GENERAL: The patient is alert and oriented x3, not in any acute distress. Well developed, well nourished. HEENT: Pupils are round and equally reacting to light. EOMI. No scleral icterus. No conjunctival pallor. Normocephalic, atraumatic. No pharyngeal erythema. No thyromegaly. CARDIOVASCULAR: S1 and S2 present. No murmurs, rubs, or gallops. PULMONARY: Chest is clear to auscultation, no wheezing or crackles. ABDOMEN: Soft, nontender, nondistended, normoactive bowel sounds. No palpable organomegaly. MUSCULOSKELETAL: No joint swelling or deformity. EXTREMITIES: No cyanosis, clubbing, or pedal edema. NEUROLOGICAL: Gross neurological examination did not reveal any focal deficits. SKIN: No rashes. no petechiae. Results CBC & Chem 7: 10/18/22 18:01 10/18/22 18:01 Labs: Abnormal Lab Results - Last 24 Hours (Table) 10/18/22 10/18/22 10/18/22 Range/Units 18:01 18:01 18:01 WBC 12.2 H (3.8-10.6) k/uL Neutrophils # 8.7 H (1.3-7.7) k/uL Sodium 136 L (137-145) mmol/L BUN 21 H (7-17) mg/dL Creatinine 1.08 H (0.52-1.04) mg/dL Glucose 201 H (74-99) mg/dL Plasma Lactic Acid [place] 2.7 H* (0.7-2.0) mmol/L Calcium 10.6 H (8.4-10.2) mg/dL AST 53 H (14-36) U/L ALT 48 H (4-34) U/L Alkaline Phosphatase 132 H (38-126) U/L Urine Protein (Negative) Ur Leukocyte Esterase (Negative) Urine WBC (0-5) /hpf Urine Bacteria (None) /hpf Urine Mucus (None) /hpf [place] mmol/L 10/18/22 10/18/22 Range/Units 18:01 18:01 WBC (3.8-10.6) k/uL Neutrophils # (1.3-7.7) k/uL Sodium (137-145) mmol/L BUN (7-17) mg/dL Creatinine (0.52-1.04) mg/dL Glucose (74-99) mg/dL Plasma Lactic Acid [place] (0.7-2.0) mmol/L Calcium (8.4-10.2) mg/dL AST (14-36) U/L ALT (4-34) U/L Alkaline Phosphatase (38-126) U/L Urine Protein Trace H (Negative) Ur Leukocyte Esterase Small H (Negative) Urine WBC 33 H (0-5) /hpf Urine Bacteria Rare H (None) /hpf Urine Mucus Rare H (None) /hpf [place] 1.9 H* mmol/L Microbiology - Last 24 Hours (Table) 10/18/22 18:01 Urine Culture - Preliminary Urine,Voided Thrombosis Risk Factor Assmnt - Choose All That Apply Any of the Below Risk Factors Present?: Yes Each Factor Represents 1 point: Abnormal pulmonary function (COPD) Other Risk Factors: Yes Each Risk Factor Represents 2 Points: Age 61-74 years Other congenital or acquired thrombophilia - If yes, enter type in comment: No Thrombosis Risk Factor Assessment Total Risk Factor Score: 3 Thrombosis Risk Factor Assessment Level: Moderate Risk Assessment and Plan Assessment: Acutely feel toxicity, mild Mild gastroenteritis and periumbilical tenderness secondary to above Possible some EKG changes secondary to lithium toxicity Diabetes mellitus Hyperlipidemia History of GERD History of CVA/TIA History of anxiety, depression, PTSD and schizophrenia COPD, no acute exacerbation Plan: Continue with IV hydration Follow-up the LITHIUM level. LITHIUM WAS discontinued Telemetry and cardiology consult psychiatric consult Continue Levemir 16 units, hold metformin. Change Januvia to linagliptin nonformulary in this facility Labs and medication were reviewed.. Continue same treatment. Continue with symptomatic treatment. Resume home medication. Monitor labs and vitals. DVT and GI prophylaxis. Further recommendations as per clinical course of the patient DVT prophylaxis: Subcutaneous heparin GI Prophylaxis: Pepcid PT/OT: Pending Prognosis is guarded
[2022-10-19] MEDS ORDERED: ARIPiprazole 15 MG TAB PO SCH (08:00)
[2022-10-19] MEDS: clonazePAM 1 MG TAB PO SCH ×3 (08:32→20:36)
[2022-10-19] MEDS: INSULIN ASPART (NovoLOG) 100 UNIT/ML VIAL SQ SCH ×4 (08:32→20:36)
[2022-10-19] MEDS: LINAGLIPTIN 5 MG TABLET PO SCH (08:32)
[2022-10-19] MEDS: lamoTRIgine 100 MG TAB PO SCH (08:32)
[2022-10-19] MEDS: glipiZIDE 10 MG TAB PO SCH ×2 (08:32→16:28)
[2022-10-19] MEDS: FAMOTIDINE 20 MG/2 ML VIAL IV SCH ×2 (08:33→20:36)
[2022-10-19] MEDS: LIPASE 5,000/PROTEASE 17,000/AMYLASE 24,000 PO SCH ×3 (08:34→20:36)
[2022-10-19] MEDS: HEPARIN SODIUM,PORCINE/PF 5,000 UNIT/0.5 ML SYRINGE SQ SCH ×3 (08:39→21:34)
[2022-10-19 09:17] LABS: Basophils % (A) 0 %; Eosinophils % (A) 0 %; HCT 33.1 % (34.0-46.0); HGB 10.3 gm/dL (11.4-16.0); Hypochromasia Slight; Lymphocytes # (A) 2.7 k/uL (1.0-4.8); Lymphocytes % (A) 34 %; MCH 28.1 pg (25.0-35.0); MCV 90.7 fL (80.0-100.0); Mean Platelet Volume 7.7; Monocytes # (A) 0.3 k/uL (0-1.0); Monocytes % (A) 4 %; Neutrophils # (A) 4.6 k/uL (1.3-7.7); Neutrophils % (A) 59 %; Platelet Count 362 k/uL (150-450); RBC 3.65 m/uL (3.80-5.40); RDW 14.7 % (11.5-15.5); WBC 7.8 k/uL (3.8-10.6)
[2022-10-19 09:50] LABS: ALT 47 U/L (4-34); AST 43 U/L (14-36); African American GFR (CKD) >90 (>60 ml/min/1.73 sqM); Albumin 3.1 g/dL (3.5-5.0); Alkaline Phosphatase 115 U/L (38-126); Anion Gap 8 mmol/L; Bilirubin, Delta 0.2 mg/dL (0.0-0.2); Bilirubin,Unconjugated 0.1 mg/dL (0.0-1.1); Blood Urea Nitrogen 14 mg/dL (7-17); Calcium 8.5 mg/dL (8.4-10.2); Carbon Dioxide 21 mmol/L (22-30); Chloride 110 mmol/L (98-107); Glucose 77 mg/dL (74-99); Lithium 1.3 mmol/L; Magnesium 1.4 mg/dL (1.6-2.3); Non-African American GFR(CKD) >90 (>60 ml/min/1.73 sqM); Potassium 3.8 mmol/L (3.5-5.1); Sodium 139 mmol/L (137-145); Total Bilirubin 0.3 mg/dL (0.2-1.3); Total Protein 5.4 g/dL (6.3-8.2)
[2022-10-19 11:59] LABS: Glucose,Whole Blood 117 mg/dL (70-110)
--- NOTE | 2022-10-19 12:19 | P.CN ---
Psychiatric Consult - . Consult date: 10/19/22 Consult:: 10/19/22 11:16 IDENTIFYING DATA: Patient is a 62 year old female who lives at [facility]. HPI: Patient has a history of bipolar disorder with psychotic features and polysubstance abuse. Patient was last discharged from the mental health unit on 10/11/22. Patient was transitioned onto Abilify Maintenna and will be due for her next dose on 11/06. Patient presented to the hospital complaining of lethargy, feeling unwell nausea or vomiting. Patient had claimed that she has been taking her medications as directed. She was started on lithium during the previous hospitalization. Patient was found to have a lithium level of 1.9 on admission and also positive for UTI on her urine analysis. Patient was admitted medically and psychiatry was consulted for her to be seen today for psychiatric evaluation. Patient was seen laying in bed in agreeable to speak to song writer. She appeared to be somewhat tired and states that she slept more for the past "3 or 4 days. She states that she is also sentencing changes in her urine before coming into the hospital. She cleans her since she is gone the fluids and stop the lithium she has been feeling a bit better. Seems that she is not nauseous or vomited today. She claims that her mood is stable, denying any depression does claim to have mild anxiety at this time. States that she still feels somewhat tired. We spoke about other medication options and patient was agre eable to try Depakote. She states that she has not been taking excessive lithium and has been taking as prescribed. She states that she has not been drinking enough fluid on before coming into the hospital. At this time she is not endorsing any paranoia and no delusions. She is denying any auditory or visual hallucinations. She is denying any suicidal or homicidal ideations intent or plan. She is taking them that she is not abusing any drugs at this time. PAST PSYCHIATRIC HISTORY: has a ghx of bipolar disorder with psych features, polysubstance abuse. has been on severel different meds in the past including Lamictal, Zyprexa, abilify maintenna, lithium and klonopin Multiple previous psychiatric hospitalizations. last admitted in early september 2022 Psychiatric outpatient follow-up: CM, ACT team History of suicide attempts and cutting in the past. PMH: Past Medical History: Cancer, CVA/TIA, Diabetes Mellitus, GERD/Reflux, Hyperlipidemia, Renal Disease Additional Past Medical History / Comment(s): Chronic pancreatitis,wt loss of 60-70 pounds over last year, HEART MURMUR AND ENLARGED AORTA, tia's, colon polyps-benign, "blood pressure tends to run low ended up in ICU" pt states recent UTI treated,merle neuropathy,throat CA at age 6,chronic bronchitis recent fall with left rib fractures, hematoma to right forehead History of Any Multi-Drug Resistant Organisms: MRSA Date of last positivie culture/infection: 10/20/21 MDRO Source:: Head Past Surgical History: Appendectomy Additional Past Surgical History / Comment(s): CYST REMOVED FROM NECK. RT 3RD/4TH FINGER PARTIAL AMP D/T INJURY, lt ureter stent. COLONOSCOPY/POLYPECTOMY Past Anesthesia/Blood Transfusion Reactions: Motion Sickness, Postoperative Nausea & Vomiting (PONV) Past Psychological History: Anxiety, Bipolar, Depression, PTSD, Schizophrenia Smoking Status: Current every day smoker Past Alcohol Use History: None Reported Past Drug Use History: Methamphetamine, Prescription Drug Abuse ALLERGIES: as per EMR CHEMICAL DEPENDENCY HISTORY: asPer chart, has a history of alcohol use disorder, meth, cocaine and cannabis use disorder FAMILY PSYCHIATRIC/SUBSTANCE USE HISTORY: Sister and mother with bipolar disorder, prefers to not discuss this further. SOCIAL HISTORY: Patient was born and raised in [place], [place]. Sister is , prefers to not discuss her personal history further, becomes tearful. currently living at [facility]. MENTAL STATUS EXAM: General Appearance: Patient appears to be older than stated age, dressed in hoispital gown, no makeup, hair is brushed. appears lethargic. fair eye contact. Behavior: Patient is laying in bed without any agitated behavior. lethargic. Speech: Patient's speech is fluent and non-pressured. concrete, soft tone. Mood/Affect: Patient reports their mood is"alright", affect is congruent and constricted. Suicidality/Homicidality: Patient denies having any homicidal ideation intent or plan. Denies any suicidal ideations intent or plan. Perceptions: Patient denies any visual hallucinations and denies any auditory hallucinations. Though content/process: There is evidence of delusional thought content and thought process is linear and goal-directed. concrete. Memory and concentration: AOX3, grossly intact for the purposes of this session. Can spell "WORLD" backwards Judgment and insight: fair IMPRESSIONS: [place] toxicity History of Bipolar disorder with psychotic features Alcohol use disorder, severe, in remission hx of Methamphetamine abuse hx of Cannabis use disorder Cocaine use disorder in remission, by history PLAN: -At this time patient DOES NOT meet criteria for inpatient psychiatric admission. -Would recommend the following medication changes/additions: continue with lamictal 200 mg daily for mood stabilization, added depakote 500 mg qhs for mood stabilization, d/c po abilify as patient already received Abilify maintenna 400 mg IM on previous admission and will be due for next IM dose of 400 mg on 11/06. D/c lithium and continue to manage fluids and watch for level decreasing. can continue with zyprexa and klonopin as perscribed. -Communicated plan to patient's nurse -Will continue to follow along tomorrow -patient states that she will be able to return to [facility] upon discharge -Please contact with any questions. 10/19/22 12:18
--- NOTE | 2022-10-19 16:20 | P.CRDCN ---
History of Present Illness History of present illness: HISTORY OF PRESENTING ILLNESS Patient is pleasant 62-year-old female with a history of CVA, chronic pancreatitis, diabetes mellitus type 2, anxiety, hyperlipidemia, bipolar, PTSD, prior alcohol abuse, tobacco abuse. She admits to not feeling well over the last 3-4 days feeling somewhat more lethargic, fatigued, nauseous and throwing up. She denies any actual chest pain or pressure. She was started on lithium approximately 10 days ago. Apparently she was taking different than what was prescribed however denies any intentional overdose. She additionally has been having some midepigastric pain. Blood work showed white blood cell count 12.2, sodium 136, creatinine 1.0, AST 53, ALT 48, TSH 2.7 lithium level 1.9. It was concern of EKG changes and therefore cardiology was consulted. EKG shows sinus rhythm, normal axis, minimal RS are prime V1 and V2 with minimal elevation in V1 and V2 however not diagnostic of Brugada syndrome, somewhat changed from prior. No significant ST depressions. No significant arrhythmias on telemetry. REVIEW OF SYSTEMS At the time of my exam: CONSTITUTIONAL: Denies fever or chills. CARDIOVASCULAR: Denies chest pain, shortness of breath, orthopnea, PND or palpitations. RESPIRATORY: Denies cough. GASTROINTESTINAL: +abdominal pain, +nausea +vomiting. MUSCULOSKELETAL: Denies myalgias. NEUROLOGIC: Denies numbness, tingling or weakness. ENDOCRINE: Denies fatigue, weight change, polydipsia or polyurina. GENITOURINARY: Denies burning, hematuria or urgency with micturation. HEMATOLOGIC: Denies history of anemia or bleeding. PHYSICAL EXAMINATION Vital signs reviewed. CONSTITUTIONAL: No apparent distress, chronically ill appearing. HEENT: Head is normocephalic. Pupils are equal, round. Sclerae anicteric. Mucous membranes of the mouth are moist. No JVD. No carotid bruit. CHEST EXAMINATION: Lungs are clear to auscultation. No chest wall tenderness is noted on palpation or with deep breathing. HEART EXAMINATION: Regular rate and rhythm. S1, S2 heard. No murmurs, gallops or rub. ABDOMEN: Soft, nontender. Positive bowel sounds. EXTREMITIES: 2+ peripheral pulses, no lower extremity edema and no calf tenderness. NEUROLOGIC EXAMINATION: Patient is awake, alert and oriented x3. ASSESSMENT 1. Abnormal EKG with minimal ST elevation V1 and V2 with incomplete right bundle branch block morphology. May be related to lithium toxicity 2. Elevated lithium level 3. Multiple symptoms of fatigue, nausea, abdominal pain may be related to lithium toxicity 4. History of CVA 5. History of bipolar disorder PLAN Patient with subtle incomplete right bundle branch block and minimal ST elevation V1 and V2. Not having any significant angina-type symptoms and does appear to be some mild change from prior EKG. Likely related to lithium levels and continue to hold lithium. Repeat EKG and monitor for improvement. No significant arrhythmias noted and no need for other treatment at this time. Monitor response of EKG and further recommendations to follow. 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 6, chronic bronchitis recent fall with 7 left rib fractures, hematoma to right forehead in past, History of Any Multi-Drug Resistant Organisms: MRSA Date of last positivie culture/infection: 10/20/21 MDRO Source:: Head Past Surgical History: Appendectomy Additional Past Surgical History / Comment(s): CYST REMOVED FROM NECK, RT 3RD/4TH FINGER PARTIAL AMP D/T INJURY, lt ureter stent, COLONOSCOPY/POLYPECTOMY Past Anesthesia/Blood Transfusion Reactions: No Reported Reaction, Motion Sickness, Postoperative Nausea & Vomiting (PONV) Past Psychological History: Anxiety, Bipolar, Depression, PTSD, Schizophrenia Smoking Status: Current every day smoker Past Alcohol Use History: None Reported Past Drug Use History: Methamphetamine, Prescription Drug Abuse - Past Family History Father Family Medical History: Liver Disease Additional Family Medical History / Comment(s): Father at age 78 from cirrhosis of the liver. Mother Family Medical History: No Reported History Additional Family Medical History / Comment(s): Mother is alive in her 80s Sister(s) Family Medical History: Coronary Artery Disease (CAD) Additional Family Medical History / Comment(s): Patient has 2 sisters and one has from an overdose. She has 1 brother with no major medical problems. 4cm aortic aneurysm Medications and Allergies Home Medications Medication Instructions Recorded Confirmed Type Ergocalciferol (Vitamin D2) 1,250 mcg PO WE@0810/04/22 10/18/22 History [Drisdol (50,000 Iu)] Insulin Glargine,Hum.rec.anlog 16 units SQ HS@209910/04/22 10/18/22 History [Lantus Solostar Pen] Lipase/Protease/Amylase [Zenpep Dr 2 cap PO TID@0800,1700,209910/04/22 10/18/22 History 5,000 Unit Capsule] metFORMIN HCL ER [Glucophage XR] 1,000 mg PO BID@0800,1700 10/04/22 10/18/22 History sitaGLIPtin [Januvia] 100 mg PO DAILY@0800 10/04/22 10/18/22 History ARIPiprazole IM SYRINGE [Abilify 400 mg IM Q28D #1 each 10/11/22 10/18/22 Rx Maintena Syringe] Albuterol Inhaler [Ventolin Hfa 2 puff INHALATION RT-QID PRN each 10/11/22 10/18/22 Rx Inhaler] Nicotine Gum (Polacrilex) 2 mg BUCCAL Q2HR PRN 30 Days #360 10/11/22 10/18/22 Rx [Nicorette] pieceofgum ARIPiprazole [Abilify] 15 mg PO DAILY@0800 10/18/22 10/18/22 History Clarcona Carbonate 450 mg PO BID@0800,209910/18/22 10/18/22 History OLANZapine [ZyPREXA] 5 mg PO HS@209910/18/22 10/18/22 History clonazePAM [KlonoPIN] 1 mg PO TID@0800,1600,209910/18/22 10/18/22 History glipiZIDE XL [Glucotrol XL] 20 mg PO W/BRKFST 10/18/22 10/18/22 History hydrOXYzine pamoate [Vistaril] 100 mg PO HS@199910/18/22 10/18/22 History lamoTRIgine 200 mg PO DAILY@0800 10/18/22 10/18/22 History Allergies Allergy/AdvReac Type Severity Reaction Status Date / Time No Known Allergies Allergy Verified 04/26/23 19:32 Physical Exam Vitals: Vital Signs Temp Pulse Pulse Pulse Resp BP BP 10/19/22 13:35 97.7 F 68 16 115/75 10/19/22 08:30 97.5 F L 73 18 112/75 10/19/22 03:46 97.7 F 64 16 94/61 10/19/22 00:00 97.8 F 71 16 112/72 10/18/22 22:30 97.5 F L 75 16 123/78 10/18/22 20:50 75 18 107/60 10/18/22 16:26 98.2 F 80 16 134/86 Pulse Ox 10/19/22 13:35 99 10/19/22 08:30 99 10/19/22 03:46 95 10/19/22 00:00 98 10/18/22 22:30 99 10/18/22 20:50 99 10/18/22 16:26 100 Intake and Output 10/19/22 10/19/22 10/19/22 06:59 14:59 22:59 Intake Total 10 Balance 10 Intake: IV 10 Invasive Line 1 10 Other: Voiding Method Toilet Toilet # Voids 1 Results 10/19/22 07:51 10/19/22 07:51 Cardiac Enzymes 10/18/22 10/18/22 10/19/22 Range/Units 18:01 18:01 07:51 AST 53 H 43 H (14-36) U/L Troponin I <0.012 (0.000-0.034) ng/mL Coagulation 10/18/22 Range/Units 18:01 PT 9.8 (9.0-12.0) sec APTT 26.6 (22.0-30.0) sec CBC 10/18/22 10/19/22 Range/Units 18:01 07:51 WBC 12.2 H 7.8 (3.8-10.6) k/uL RBC 4.07 3.65 L (3.80-5.40) m/uL Hgb 11.6 10.3 L (11.4-16.0) gm/dL Hct 36.0 33.1 L (34.0-46.0) % Plt Count 396 362 (150-450) k/uL Comprehensive Metabolic Panel 10/18/22 10/19/22 Range/Units 18:01 07:51 Sodium 136 L 139 (137-145) mmol/L Potassium 4.3 3.8 (3.5-5.1) mmol/L Chloride 99 110 H (98-107) mmol/L Carbon Dioxide 25 21 L (22-30) mmol/L BUN 21 H 14 (7-17) mg/dL Creatinine 1.08 H 0.71 (0.52-1.04) mg/dL Glucose 201 H 77 (74-99) mg/dL Calcium 10.6 H 8.5 (8.4-10.2) mg/dL Unconjugated Bilirubin 0.1 (0.0-1.1) mg/dL AST 53 H 43 H (14-36) U/L ALT 48 H 47 H (4-34) U/L Alkaline Phosphatase 132 H 115 (38-126) U/L Total Protein 7.1 5.4 L (6.3-8.2) g/dL Albumin 4.2 3.1 L (3.5-5.0) g/dL Current Medications Generic Name Dose Route Start Last Admin Trade Name Freq PRN Reason Stop Dose Admin Albuterol Sulfate 2.5 mg 10/19/22 07:11 Albuterol Nebulized 2.5 Mg/3 Ml INHALATION RT-QID PRN Shortness Of Breath Or Wheezing Lipase/Protease/Amylase 2 each 10/19/22 08:00 10/19/22 08:34 Lipase 5,000/Protease 17,000/Amylase 24,000 PO 2 each TID@0800,1700,2100 [facility] Administration Aripiprazole 400 mg 11/06/22 12:00 Aripiprazole Im Syringe 400 Mg (No Charge) Pharmacy Stock IM Q28D [facility] Clonazepam 1 mg 10/19/22 08:00 10/19/22 08:32 Clonazepam 1 Mg Tab PO 1 mg TID@0800,1600,2100 [facility] Administration Dextrose/Water 25 ml 10/19/22 07:13 Dextrose 50% Syringe 50 Ml IVP PER PROTOCOL PRN Hypoglycemia Protocol Dextrose/Water 50 ml 10/19/22 07:13 Dextrose 50% Syringe 50 Ml IVP PER PROTOCOL PRN Hypoglycemia Protocol Divalproex Sodium 500 mg 10/19/22 21:00 Divalproex Er 500 Mg Tab.Er.24h PO [facility] Ergocalciferol 1,250 mcg 10/25/22 08:00 Ergocalciferol 1,250 Mcg (50,000 Iu) Capsule PO WE@0800 [facility] Famotidine 20 mg 10/19/22 09:00 10/19/22 08:33 Famotidine 20 Mg/2 Ml Vial IV 20 mg Q12HR [facility] Administration Glipizide 10 mg 10/19/22 07:30 10/19/22 08:32 Glipizide 10 Mg Tab PO 10 mg BID-W/MEALS [facility] Administration Heparin Sodium (Porcine) 5,000 unit 10/19/22 09:00 10/19/22 08:39 Heparin Sodium,Porcine/Pf 5,000 Unit/0.5 Ml Syringe SQ Not Given Q12HR [facility] Sodium Chloride 1,000 mls @ 130 mls/hr 10/18/22 20:30 10/19/22 03:57 Saline 0.9% IV 130 mls/hr .Q7H42M [facility] Administration Insulin Aspart 0 unit 10/19/22 07:30 10/19/22 13:32 Insulin Aspart (Novolog) 100 Unit/Ml Vial SQ Not Given ACHS [facility] Protocol Insulin Detemir 16 unit 10/20/22 07:00 Insulin Detemir (Levemir) 100 Unit/Ml Syr SQ DAILY@0700 [facility] Lamotrigine 200 mg 10/19/22 08:00 10/19/22 08:32 Lamotrigine 100 Mg Tab PO 200 mg DAILY@0800 [facility] Administration Linagliptin 5 mg 10/19/22 09:00 10/19/22 08:32 Linagliptin 5 Mg Tablet PO 5 mg DAILY [facility] Administration Naloxone HCl 0.2 mg 10/18/22 20:39 Naloxone 0.4 Mg/Ml 1 Ml Vial IV Q2M PRN Opioid Reversal Olanzapine 5 mg 10/19/22 21:00 Olanzapine 5 Mg Tab PO HS@2100 [facility] Ondansetron HCl 4 mg 10/19/22 07:54 Ondansetron 4 Mg/2 Ml Vial IVP Q6HR PRN Nausea And Vomiting Intake and Output 10/19/22 10/19/22 10/19/22 06:59 14:59 22:59 Intake Total 10 Balance 10 Intake: IV 10 Invasive Line 1 10 Other: Voiding Method Toilet Toilet # Voids 1 10/19/22 07:51 10/19/22 07:51
[2022-10-19 16:45] LABS: Glucose,Whole Blood 92 mg/dL (70-110)
[2022-10-19 20:03] LABS: Glucose,Whole Blood 215 mg/dL (70-110)
[2022-10-19] MEDS ORDERED: DIVALPROEX ER 500 MG TAB.ER.24H PO SCH (21:00)
[2022-10-19] MEDS ORDERED: OLANZapine 5 MG TAB PO SCH (21:00)
[2022-10-20] MEDS: SODIUM CHLORIDE 0.9% 1,000 ML IV SCH ×2 (03:56→11:53)
[2022-10-20 05:58] LABS: Glucose,Whole Blood 148 mg/dL (70-110)
[2022-10-20] MEDS: INSULIN ASPART (NovoLOG) 100 UNIT/ML VIAL SQ SCH ×2 (06:32→13:12)
[2022-10-20] MEDS: glipiZIDE 10 MG TAB PO SCH (06:56)
[2022-10-20] MEDS ORDERED: INSULIN DETEMIR (LEVEMIR) 100 UNIT/ML SYR SQ SCH (07:00)
[2022-10-20 07:09] LABS: Basophils % (A) 0 %; Eosinophils % (A) 0 %; HGB 12.1 gm/dL (11.4-16.0); Hypochromasia Slight; Lymphocytes % (A) 39 %; MCH 29.1 pg (25.0-35.0); MCHC 31.8 g/dL (31.0-37.0); MCV 91.4 fL (80.0-100.0); Mean Platelet Volume 7.6; Monocytes # (A) 0.4 k/uL (0-1.0); Monocytes % (A) 3 %; Neutrophils # (A) 5.8 k/uL (1.3-7.7); Neutrophils % (A) 56 %; Platelet Count 413 k/uL (150-450); RBC 4.16 m/uL (3.80-5.40); RDW 14.8 % (11.5-15.5); WBC 10.5 k/uL (3.8-10.6)
[2022-10-20 07:21] LABS: ALT 56 U/L (4-34); AST 50 U/L (14-36); African American GFR (CKD) >90 (>60 ml/min/1.73 sqM); Albumin 3.8 g/dL (3.5-5.0); Alkaline Phosphatase 143 U/L (38-126); Anion Gap 8 mmol/L; Bilirubin,Unconjugated 0.2 mg/dL (0.0-1.1); Blood Urea Nitrogen 9 mg/dL (7-17); Calcium 9.7 mg/dL (8.4-10.2); Carbon Dioxide 21 mmol/L (22-30); Chloride 108 mmol/L (98-107); Glucose 130 mg/dL (74-99); Non-African American GFR(CKD) 79 (>60 ml/min/1.73 sqM); Potassium 4.4 mmol/L (3.5-5.1); Sodium 137 mmol/L (137-145); Total Bilirubin 0.2 mg/dL (0.2-1.3); Total Protein 6.5 g/dL (6.3-8.2)
[2022-10-20 08:37] VITALS: RESP 17
[2022-10-20] MEDS: HEPARIN SODIUM,PORCINE/PF 5,000 UNIT/0.5 ML SYRINGE SQ SCH (08:41)
[2022-10-20] MEDS: FAMOTIDINE 20 MG/2 ML VIAL IV SCH (08:46)
[2022-10-20] MEDS: LINAGLIPTIN 5 MG TABLET PO SCH (08:46)
[2022-10-20] MEDS: LIPASE 5,000/PROTEASE 17,000/AMYLASE 24,000 PO SCH (08:47)
[2022-10-20] MEDS: clonazePAM 1 MG TAB PO SCH (08:47)
[2022-10-20] MEDS: lamoTRIgine 100 MG TAB PO SCH (08:47)
[2022-10-20 11:41] LABS: Glucose,Whole Blood 252 mg/dL (70-110)
[2022-10-20 11:48] VITALS: BP 107/72; PULSE 66; TEMP 98.1
--- NOTE | 2022-10-20 12:36 | P.PN ---
Subjective HISTORY OF PRESENTING ILLNESS Patient is pleasant 62-year-old female with a history of CVA, chronic pancreatitis, diabetes mellitus type 2, anxiety, hyperlipidemia, bipolar, PTSD, prior alcohol abuse, tobacco abuse. She admits to not feeling well over the last 3-4 days feeling somewhat more lethargic, fatigued, nauseous and throwing up. She denies any actual chest pain or pressure. She was started on lithium approximately 10 days ago. Apparently she was taking different than what was prescribed however denies any intentional overdose. She additionally has been having some midepigastric pain. Blood work showed white blood cell count 12.2, sodium 136, creatinine 1.0, AST 53, ALT 48, TSH 2.7 lithium level 1.9. It was concern of EKG changes and therefore cardiology was consulted. EKG shows sinus rhythm, normal axis, minimal RS are prime V1 and V2 with minimal elevation in V1 and V2 however not diagnostic of Brugada syndrome, somewhat changed from prior. No significant ST depressions. No significant arrhythmias on telemetry. 10/20 Patient seen and examined. Patient admits her nausea and appetite have improved. She denies any chest pain or pressure. EKG normalized without any incomplete bundle branch block. PHYSICAL EXAMINATION Vital signs reviewed. CONSTITUTIONAL: No apparent distress, chronically ill appearing. HEENT: Head is normocephalic. Pupils are equal, round. Sclerae anicteric. Mucous membranes of the mouth are moist. No JVD. No carotid bruit. CHEST EXAMINATION: Lungs are clear to auscultation. No chest wall tenderness is noted on palpation or with deep breathing. HEART EXAMINATION: Regular rate and rhythm. S1, S2 heard. No murmurs, gallops or rub. ABDOMEN: Soft, nontender. Positive bowel sounds. EXTREMITIES: 2+ peripheral pulses, no lower extremity edema and no calf tenderness. NEUROLOGIC EXAMINATION: Patient is awake, alert and oriented x3. ASSESSMENT 1. Abnormal EKG with minimal ST elevation V1 and V2 with incomplete right bundle branch block morphology. May be related to lithium toxicity 2. Elevated lithium level 3. Multiple symptoms of fatigue, nausea, abdominal pain may be related to lithium toxicity 4. History of CVA 5. History of bipolar disorder PLAN Repeat EKG did not show any significant abnormalities. Mild EKG abnormalities appear related to lithium toxicity and have improved. No further adjustments from a cardiology standpoint. Please call with any questions. Objective - Vital Signs Vital signs: Vital Signs Temp 98.1 F 10/20/22 11:47 Pulse 66 10/20/22 11:47 Resp 17 10/20/22 11:47 BP 107/72 10/20/22 11:47 Pulse Ox 97 10/20/22 11:47 FiO2 Intake & Output 10/19/22 10/20/22 10/20/22 18:59 06:59 18:59 Intake Total 3130 10 420 Balance 3130 10 420 Intake: IV 10 Invasive Line 1 10 Intake, IV Titration 1430 Amount Sodium Chloride 0.9% 1, 1430 000 ml @ 130 mls/hr IV . Q7H42M [facility] Rx#:[id number] Oral 1700 420 Other: Voiding Method Toilet Toilet Toilet # Voids 3 2 - Labs CBC & Chem 7: 10/20/22 06:54 10/20/22 06:54 Labs: Abnormal Lab Results - Last 24 Hours (Table) 10/19/22 10/20/22 10/20/22 Range/Units 20:01 05:58 06:54 Chloride (98-107) mmol/L Carbon Dioxide (22-30) mmol/L Glucose (74-99) mg/dL POC Glucose (mg/dL) 215 H 148 H (70-110) mg/dL Hemoglobin A1c 8.7 H (0.0-6.0) % AST (14-36) U/L ALT (4-34) U/L Alkaline Phosphatase (38-126) U/L 10/20/22 10/20/22 Range/Units 06:54 11:40 Chloride 108 H (98-107) mmol/L Carbon Dioxide 21 L (22-30) mmol/L Glucose 130 H (74-99) mg/dL POC Glucose (mg/dL) 252 H (70-110) mg/dL Hemoglobin A1c (0.0-6.0) % AST 50 H (14-36) U/L ALT 56 H (4-34) U/L Alkaline Phosphatase 143 H (38-126) U/L Microbiology - Last 24 Hours (Table) 10/18/22 18:01 Urine Culture - Preliminary Urine,Voided Gram Neg Bacilli
--- NOTE | 2022-10-20 16:48 | P.PN ---
Progress Note - Text Progress Note Date: 10/20/22 Interval History: Patient was seen today at the bedside for psychiatric follow up. her nurse sta desiree, patient has been sleeping well at night, doing better overall today. she was seen laying in bed and sat up on the bed. she claims that her sx have improved since yesterday. she claim that she slept well last night. she has been drinking fluids and eating well. she states that she tolerated the depakote well last night. she states that she is excited to get back to [facility] today. At this time patient denies any suicidal or homical ideations, intent or plan. Patient denies any auditory, visual hallucinations and denies any paranoia or delusions. Patient denies any side effects from the medications and has been compliant with meds Mental Status Exam: General Appearance: Patient appears to be older than stated age, dressed in street clothes, no makeup, hair is brushed. fair eye contact. Behavior: Patient is laying in bed without any agitated behavior. cooperative Speech: Patient's speech is fluent and non-pressured. concrete Mood/Affect: Patient reports their mood is"ok", affect is congruent and constricted. Suicidality/Homicidality: Patient denies having any homicidal ideation intent or plan. Denies any suicidal ideations intent or plan. Perceptions: Patient denies any visual hallucinations and denies any auditory hallucinations. Though content/process: There is evidence of delusional thought content and thought process is linear and goal-directed. concrete. Memory and concentration: AOX3, grossly intact for the purposes of this session Judgment and insight: fair IMPRESSIONS: [place] toxicity History of Bipolar disorder with psychotic features Alcohol use disorder, severe, in remission hx of Methamphetamine abuse hx of Cannabis use disorder Cocaine use disorder in remission, by history PLAN: -At this time patient DOES NOT meet criteria for inpatient psychiatric admission -Would recommend the following medication changes/additions: continue with lamictal 200 mg daily for mood stabilization, depakote 500 mg qhs for mood stabilization, Abilify maintenna 400 mg IM will be due for next IM dose of 400 mg on 11/06. can continue with zyprexa and klonopin as perscribed. -Communicated plan to patient's nurse -at this time psych will sign off -she is able to return to [facility] upon discharge and continue to f/u at [facility]. -Please contact with any questions.
[2022-10-25] MEDS ORDERED: ERGOCALCIFEROL 1,250 MCG (50,000 IU) CAPSULE PO SCH (08:00)
[2022-11-06] MEDS ORDERED: ARIPiprazole IM SYRINGE 400 MG (NO CHARGE) PHARMACY STOCK IM SCH (12:00)
== END 2022-10-20 14:04 | disposition home or self-care (01) | DRG 463 ==
LOC: EC 15:44 → 3SCARD 20:41 → OBSVTOIN 21:01 → 3SCARD 21:27
PROVIDERS: ADMIT Internal Medicine; ATTEND Internal Medicine
DX: N39.0 Urinary tract infection, site not specified (principal); K52.1 Toxic gastroenteritis and colitis; F29 Unspecified psychosis not due to a substance or known physiological condition; E11.42 Type 2 diabetes mellitus with diabetic polyneuropathy; E78.5 Hyperlipidemia, unspecified; B96.20 Unspecified Escherichia coli [E. coli] as the cause of diseases classified elsewhere; F19.10 Other psychoactive substance abuse, uncomplicated; J44.9 Chronic obstructive pulmonary disease, unspecified; I77.810 Thoracic aortic ectasia; F15.11 Other stimulant abuse, in remission; F10.21 Alcohol dependence, in remission; Z16.24 Resistance to multiple antibiotics; E86.0 Dehydration; I44.0 Atrioventricular block, first degree; F17.210 Nicotine dependence, cigarettes, uncomplicated; K86.1 Other chronic pancreatitis; R01.1 Cardiac murmur, unspecified; F41.9 Anxiety disorder, unspecified; F43.10 Post-traumatic stress disorder, unspecified; I45.10 Unspecified right bundle-branch block; T43.595A Adverse effect of other antipsychotics and neuroleptics, initial encounter; K21.9 Gastro-esophageal reflux disease without esophagitis; F14.91 Cocaine use, unspecified, in remission; F31.89 Other bipolar disorder; F20.9 Schizophrenia, unspecified; Z20.822 Contact with and (suspected) exposure to COVID-19; Z28.310 Unvaccinated for COVID-19; Z89.021 Acquired absence of right finger(s); Z86.14 Personal history of Methicillin resistant Staphylococcus aureus infection; Z86.73 Personal history of transient ischemic attack (TIA), and cerebral infarction without residual deficits; Z87.440 Personal history of urinary (tract) infections; Z79.899 Other long term (current) drug therapy; Z79.84 Long term (current) use of oral hypoglycemic drugs; Z79.4 Long term (current) use of insulin; Z91.51 Personal history of suicidal behavior; Z91.52 Personal history of nonsuicidal self-harm; Z85.89 Personal history of malignant neoplasm of other organs and systems; Z91.81 History of falling
CPT/HCPCS: 36415; 71046; 80048; 80053; 80076; 80178; 81001; 83036; 83605; 83735; 84100; 84443; 84484; 85025; 85610; 85730; 87077; 87086; 87186; 87636; 93005; 96360; 96361; 96374; 96375; 99285

== ENCOUNTER 2022-10-27 10:47 | Observation (INO) | payer OTHER ==
--- NOTE | 2022-10-27 10:57 | ED ---
General Adult HPI - General Chief complaint: Weakness Stated complaint: Weakness Time Seen by Provider: 10/27/22 10:54 Source: patient, EMS, RN notes reviewed Mode of arrival: EMS Limitations: no limitations - History of Present Illness Initial comments: Patient is a 62-year-old female presenting to the emergency room via EMS from her primary care provider's office with concerns for possible stroke. Patient reports that she has had issues with slurred speech for approximately 3 days along with generalized weakness. She denies any focal focal weakness. She is also complaining of abdominal pain and diarrhea which she states has been o ngoing for 2 weeks. She was recently discharged from the hospital on 10/20/2022 where she was admitted for generalized malaise, abdominal pain, nausea, vomiting, weakness; she was diagnosed with urinary tract infection and lithium toxicity. She was being seen at her primary care provider's office today for follow-up from her hospitalization. She denies any chest pain, shortness of breath, vomiting, dysuria, urinary frequency, fevers or chills. She in addition to her recent hospitalization she has a substantial past medical history including chronic pancreatitis, diabetes, CVA, COPD, GERD, hyperlipidemia, chronic renal failure, recurrent UTIs, peripheral neuropathy, and throat cancer as a child. - Related Data Home Medications Medication Instructions Recorded Confirmed Ergocalciferol (Vitamin D2) 1,250 mcg PO WE@0800 10/04/22 10/27/22 [Drisdol (50,000 Iu)] Insulin Glargine,Hum.rec.anlog 16 units SQ HS@209910/04/22 10/27/22 [Lantus Solostar Pen] Lipase/Protease/Amylase [Zenpep Dr 2 cap PO TID@0800,1700,209910/04/22 10/27/22 5,000 Unit Capsule] metFORMIN HCL ER [Glucophage XR] 1,000 mg PO BID@0800,1700 10/04/22 10/27/22 sitaGLIPtin [Januvia] 100 mg PO DAILY@0800 10/04/22 10/27/22 OLANZapine [ZyPREXA] 5 mg PO HS@209910/18/22 10/27/22 clonazePAM [KlonoPIN] 1 mg PO TID@0800,1600,209910/18/22 10/27/22 glipiZIDE XL [Glucotrol XL] 20 mg PO W/BRKFST 10/18/22 10/27/22 hydrOXYzine pamoate [Vistaril] 100 mg PO HS@199910/18/22 10/27/22 lamoTRIgine 200 mg PO DAILY@0800 10/18/22 10/27/22 Previous Rx's Medication Instructions Recorded ARIPiprazole IM SYRINGE [Abilify 400 mg IM Q28D #1 each 10/11/22 Maintena Syringe] Albuterol Inhaler [Ventolin Hfa 2 puff INHALATION RT-QID PRN each 10/11/22 Inhaler] Nicotine Gum (Polacrilex) 2 mg BUCCAL Q2HR PRN 30 Days #360 10/11/22 [Nicorette] pieceofgum Divalproex ER [Depakote ER] 500 mg PO HS #30 tab 10/20/22 Allergies Allergy/AdvReac Type Severity Reaction Status Date / Time No Known Allergies Allergy Verified 10/27/22 12:36 Review of Systems ROS Statement: Those systems with pertinent positive or pertinent negative responses have been documented in the HPI. ROS Other: All systems not noted in ROS Statement are negative. 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 6, chronic bronchitis recent fall with 7 left rib fractures, hematoma to right forehead in past, History of Any Multi-Drug Resistant Organisms: MRSA Date of last positivie culture/infection: 10/20/21 MDRO Source:: Head Past Surgical History: Appendectomy Additional Past Surgical History / Comment(s): CYST REMOVED FROM NECK, RT 3RD/4TH FINGER PARTIAL AMP D/T INJURY, lt ureter stent, COLONOSCOPY/POLYPECTOMY Past Anesthesia/Blood Transfusion Reactions: No Reported Reaction, Motion Sickness, Postoperative Nausea & Vomiting (PONV) Past Psychological History: Anxiety, Bipolar, Depression, PTSD, Schizophrenia Smoking Status: Current every day smoker Past Alcohol Use History: None Reported Past Drug Use History: Methamphetamine, Prescription Drug Abuse - Past Family History Father Family Medical History: Liver Disease Additional Family Medical History / Comment(s): Father at age 78 from cirrhosis of the liver. Mother Family Medical History: No Reported History Additional Family Medical History / Comment(s): Mother is alive in her 80s Sister(s) Family Medical History: Coronary Artery Disease (CAD) Additional Family Medical History / Comment(s): Patient has 2 sisters and one has from an overdose. She has 1 brother with no major medical problems. 4cm aortic aneurysm General Exam - General Exam Comments Initial Comments: GENERAL: No acute distress, well developed, well nourished. HEENT: Normocephalic, atraumatic. Pupils equal, round, reactive to light. Moist mucous membranes. LUNGS: No respiratory distress. Clear to auscultation, no adventitious sounds, no use of accessory muscles. HEART: Regular rate and rhythm without murmur, rub, or gallop. ABDOMEN: Normal bowel sounds. Soft, bloated but not distended. Generalized tenderness. No rebound tenderness or guarding. BACK: Normal inspection. EXTREMITIES: No edema. No tenderness. Moves all extremities. Motor strength sli ghtly decreased throughout bilateral upper and lower extremities 4/5. NEUROLOGIC: Alert & oriented x 3. CN II-XII grossly intact. Speech course and slightly garbled but no slurring. PSYCHIATRIC: Flat affect and behavior. DERMATOLOGIC: Skin intact, without rashes or lesions noted. Limitations: no limitations Course Vital Signs 10/27/22 10/27/22 10/27/22 10:50 12:00 14:47 Temperature 97.9 F Pulse Rate 74 71 82 Respiratory 18 18 18 Rate Blood Pressure 119/74 104/72 119/70 O2 Sat by Pulse 99 100 100 Oximetry Medical Decision Making - Medical Decision Making Was pt. sent in by a medical professional or institution (, PA, PARTS COUNTER SPECIALIST, urgent care, hospital, or fpc...) When possible be specific @ -Primary care provider, concern for CVA weakness and slurred speech 3 days Did you speak to anyone other than the patient for history (EMS, parent, family, police, friend...)? What history was obtained from this source @ -No Did you review nursing and triage notes (agree or disagree)? Why? @ -I reviewed and agree with nursing and triage notes Were old charts reviewed (outside hosp., previous admission, EMS record, old EK G, old radiological studies, urgent care reports/EKG's, fpc records)? Report findings @ -Yes, I reviewed history and physical from most recent hospitalization in September 2022 Differential Diagnosis (chest pain, altered mental status, abdominal pain women, abdominal pain men, vaginal bleeding, weakness, fever, dyspnea, syncope, headache, dizziness, GI bleed, back pain, seizure, CVA, palpatations, mental health, musculoskeletal)? @ -Differential Weakness: Hypoglycemia, shock, sepsis, hyponatremia, anemia, infection, KS, ETOH, adverse medicine reaction, overdose, stroke, this is not meant to be an all-inclusive list. Differential CVA Ischemic stroke, hemorrhagic stroke, brain tumor, atypical migraine, Wernicke's encephalopathy, seizure, multiple sclerosis, meningitis, encephalitis, hypoglycemia, Guillain-Arteaga, electrolytes disturbance, myasthenia gravis.... This is not meant to be an all-inclusive list EKG interpreted by me (3pts min.). @ -Sinus rhythm, ventricular rate 73 bpm, TN interval 208 ms, QRS duration 94 ms, QT/QTC 396/421 ms, PRT axes 54, 56, 74 X-rays interpreted by me (1pt min.). @ -Chest x-ray two-view: Hyperinflation consistent with COPD, no consolidation, pleural effusion, or pneumothorax. CT interpreted by me (1pt min.). @ -Computed tomography scan brain without contrast: No acute intracranial process. No mass, intracranial hemorrhage or ischemia. U/S interpreted by me (1pt. min.). @ -None done What testing was considered but not performed or refused? (CT, X-rays, U/S, labs)? Why? @ -None What meds were considered but not given or refused? Why? @ -None Did you discuss the management of the patient with other professionals (professionals i.e. , PA, PARTS COUNTER SPECIALIST, lab, RT, psych nurse, social media manager, die barber, teacher, account officer, immigration case worker)? Give summary @ -Yes, spoke with Promise chavez for patient guardian services who is agreeable to observation admission. Spoke with Dr. Goldstein regarding admission recommendation, he is accepting of admission, Was smoking cessation discussed for >3mins.? @ -No Was critical care preformed (if so, how long)? @ -No Were there social determinants of health that impacted care today? How? (Homelessness, low income, unemployed, alcoholism, drug addiction, transportation, low edu. Level, literacy, decrease access to med. care, fdc, rehab)? @ -No Was there de-escalation of care discussed even if they declined (Discuss DNR or withdrawal of care, Hospice)? DNR status @ -No What co-morbidities impacted this encounter? (DM, HTN, Smoking, COPD, CAD, Cancer, CVA, ARF, Chemo, Hep., AIDS, mental health diagnosis, sleep apnea, m orbid obesity)? @ -Recent UTI and lithium toxicity Was patient admitted / discharged? Hospital course, mention meds given and route, prescriptions, significant lab abnormalities, going to OR and other pertinent info. @ -62-year-old female presenting to the emergency room via EMS from her PCP regarding concerns of weakness, slurred speech, abdominal pain and diarrhea. Recent treatment for UTI and lithium toxicity. Will obtain CT of the brain, chest x-ray, EKG, CBC, lithium level, CMP, blood cultures, urinalysis, coags, lactic acid, troponin and stool for C. diff. No indication for any medication administration at this time. Laboratory studies reveal CBC with elevated platelet count 159 no leukocytosis or anemia. Coags normal. CBC demonstrates slightly elevated ALP 47 and alkaline phosphatase at 151. Troponin negative. [place] level undetectable less than 0.2. Viral swabbing for Covid influenza and RSV negative. Urinalysis without abnormalities. No bowel movement to obtain stool for C. difficile studies. EKG shows sinus rhythm. Chest x-ray and CT of brain without acute findings. No indication for further diagnostic imaging or laboratory studies at this time. In the setting of primary care concern regarding slurred speech recommend observation stay for further evaluation by neurology. Patient wishes to go home however patient has a guardian; spoke with Promise on [facility] who is agreeable to admission. Will admit patient in stable condition to observation unit under [facility] services for further evaluation of slurred speech and weakness. Undiagnosed new problem with uncertain prognosis? @ -No Drug Therapy requiring intensive monitoring for toxicity (Heparin, Nitro, Insulin, Cardizem)? @ -No Were any procedures done? @ -No Diagnosis/symptom? @ -Weakness, slurred speech Acute, or Chronic, or Acute on Chronic? @ -Acute Uncomplicated (without systemic symptoms) or Complicated (systemic symptoms)? @ -Complicated Side effects of treatment? @ -No Exacerbation, Progression, or Severe Exacerbation? @ -No Poses a threat to life or bodily function? How? (Chest pain, USA, KS, pneumonia, PE, COPD, DKA, ARF, appy, cholecystitis, CVA, Diverticulitis, Homicidal, Suicidal, threat to staff... and all critical care pts) @ -Yes, risk for focal neurological deficits and fall. Case discussed with Dr. Rodas. - Lab Data Result diagrams: 10/27/22 10:58 10/27/22 10:58 Lab Results 10/27/22 10/27/22 10/27/22 Range/Units 10:58 10:58 10:58 WBC 9.7 (3.8-10.6) k/uL RBC 4.50 (3.80-5.40) m/uL Hgb 12.7 (11.4-16.0) gm/dL Hct 41.6 (34.0-46.0) % MCV 92.3 (80.0-100.0) fL MCH 28.2 (25.0-35.0) pg MCHC 30.6 L (31.0-37.0) g/dL RDW 14.6 (11.5-15.5) % Plt Count 459 H (150-450) k/uL MPV 7.4 Neutrophils % 58 % Lymphocytes % 36 % Monocytes % 4 % Eosinophils % 0 % Basophils % 0 % Neutrophils # 5.6 (1.3-7.7) k/uL Lymphocytes # 3.5 (1.0-4.8) k/uL Monocytes # 0.4 (0-1.0) k/uL Eosinophils # 0.0 (0-0.7) k/uL Basophils # 0.0 (0-0.2) k/uL Hypochromasia Slight PT 9.9 (9.0-12.0) sec INR 0.9 (<1.2) APTT 27.7 (22.0-30.0) sec Sodium 140 (137-145) mmol/L Potassium 4.7 (3.5-5.1) mmol/L Chloride 103 (98-107) mmol/L Carbon Dioxide 27 (22-30) mmol/L Anion Gap 10 mmol/L BUN 15 (7-17) mg/dL Creatinine 0.91 (0.52-1.04) mg/dL Est GFR (CKD-EPI)AfAm 79 (>60 ml/min/1.73 sqM) Est GFR (CKD-EPI)NonAf 68 (>60 ml/min/1.73 sqM) Glucose 86 (74-99) mg/dL Plasma Lactic Acid Tim[place] (0.7-2.0) mmol/L Calcium 9.5 (8.4-10.2) mg/dL Magnesium 1.9 (1.6-2.3) mg/dL Total Bilirubin 0.3 (0.2-1.3) mg/dL AST 24 (14-36) U/L ALT 47 H (4-34) U/L Alkaline Phosphatase 151 H (38-126) U/L Troponin I (0.000-0.034) ng/mL Total Protein 7.7 (6.3-8.2) g/dL Albumin 4.6 (3.5-5.0) g/dL Urine Color Urine Appearance (Clear) Urine pH (5.0-8.0) Ur Specific [place] (1.001-1.035) Urine Protein (Negative) Urine Glucose (UA) (Negative) Urine Ketones (Negative) Urine Blood (Negative) Urine Nitrite (Negative) Urine Bilirubin (Negative) Urine Urobilinogen (<2.0) mg/dL Ur Leukocyte Esterase (Negative) [place] <0.2 mmol/L Influenza Type A (PCR) (Not Detectd) Influenza Type B (PCR) (Not Detectd) RSV (PCR) (Not Detectd) SARS-CoV-2 (PCR) (Not Detectd) 10/27/22 10/27/22 10/27/22 Range/Units 10:58 10:58 11:31 WBC (3.8-10.6) k/uL RBC (3.80-5.40) m/uL Hgb (11.4-16.0) gm/dL Hct (34.0-46.0) % MCV (80.0-100.0) fL MCH (25.0-35.0) pg MCHC (31.0-37.0) g/dL RDW (11.5-15.5) % Plt Count (150-450) k/uL MPV Neutrophils % % Lymphocytes % % Monocytes % % Eosinophils % % Basophils % % Neutrophils # (1.3-7.7) k/uL Lymphocytes # (1.0-4.8) k/uL Monocytes # (0-1.0) k/uL Eosinophils # (0-0.7) k/uL Basophils # (0-0.2) k/uL Hypochromasia PT (9.0-12.0) sec INR (<1.2) APTT (22.0-30.0) sec Sodium (137-145) mmol/L Potassium (3.5-5.1) mmol/L Chloride (98-107) mmol/L Carbon Dioxide (22-30) mmol/L Anion Gap mmol/L BUN (7-17) mg/dL Creatinine (0.52-1.04) mg/dL Est GFR (CKD-EPI)AfAm (>60 ml/min/1.73 sqM) Est GFR (CKD-EPI)NonAf (>60 ml/min/1.73 sqM) Glucose (74-99) mg/dL Plasma Lactic Acid [place] 1.5 (0.7-2.0) mmol/L Calcium (8.4-10.2) mg/dL Magnesium (1.6-2.3) mg/dL Total Bilirubin (0.2-1.3) mg/dL AST (14-36) U/L ALT (4-34) U/L Alkaline Phosphatase (38-126) U/L Troponin I <0.012 (0.000-0.034) ng/mL Total Protein (6.3-8.2) g/dL Albumin (3.5-5.0) g/dL Urine Color Urine Appearance (Clear) Urine pH (5.0-8.0) Ur Specific [place] (1.001-1.035) Urine Protein (Negative) Urine Glucose (UA) (Negative) Urine Ketones (Negative) Urine Blood (Negative) Urine Nitrite (Negative) Urine Bilirubin (Negative) Urine Urobilinogen (<2.0) mg/dL Ur Leukocyte Esterase (Negative) [place] mmol/L Influenza Type A (PCR) Not Detected (Not Detectd) Influenza Type B (PCR) Not Detected (Not Detectd) RSV (PCR) Not Detected (Not Detectd) SARS-CoV-2 (PCR) Not Detected (Not Detectd) 10/27/22 Range/Units 13:15 WBC (3.8-10.6) k/uL RBC (3.80-5.40) m/uL Hgb (11.4-16.0) gm/dL Hct (34.0-46.0) % MCV (80.0-100.0) fL MCH (25.0-35.0) pg MCHC (31.0-37.0) g/dL RDW (11.5-15.5) % Plt Count (150-450) k/uL MPV Neutrophils % % Lymphocytes % % Monocytes % % Eosinophils % % Basophils % % Neutrophils # (1.3-7.7) k/uL Lymphocytes # (1.0-4.8) k/uL Monocytes # (0-1.0) k/uL Eosinophils # (0-0.7) k/uL Basophils # (0-0.2) k/uL Hypochromasia PT (9.0-12.0) sec INR (<1.2) APTT (22.0-30.0) sec Sodium (137-145) mmol/L Potassium (3.5-5.1) mmol/L Chloride (98-107) mmol/L Carbon Dioxide (22-30) mmol/L Anion Gap mmol/L BUN (7-17) mg/dL Creatinine (0.52-1.04) mg/dL Est GFR (CKD-EPI)AfAm (>60 ml/min/1.73 sqM) Est GFR (CKD-EPI)NonAf (>60 ml/min/1.73 sqM) Glucose (74-99) mg/dL Plasma Lactic Acid [place] (0.7-2.0) mmol/L Calcium (8.4-10.2) mg/dL Magnesium (1.6-2.3) mg/dL Total Bilirubin (0.2-1.3) mg/dL AST (14-36) U/L ALT (4-34) U/L Alkaline Phosphatase (38-126) U/L Troponin I (0.000-0.034) ng/mL Total Protein (6.3-8.2) g/dL Albumin (3.5-5.0) g/dL Urine Color Yellow Urine Appearance Clear (Clear) Urine pH 5.5 (5.0-8.0) Ur Specific [place] 1.018 (1.001-1.035) Urine Protein Negative (Negative) Urine Glucose (UA) Negative (Negative) Urine Ketones Negative (Negative) Urine Blood Negative (Negative) Urine Nitrite Negative (Negative) Urine Bilirubin Negative (Negative) Urine Urobilinogen <2.0 (<2.0) mg/dL Ur Leukocyte Esterase Negative (Negative) [place] mmol/L Influenza Type A (PCR) (Not Detectd) Influenza Type B (PCR) (Not Detectd) RSV (PCR) (Not Detectd) SARS-CoV-2 (PCR) (Not Detectd) - Radiology Data Radiology results: report reviewed, image reviewed Disposition Clinical Impression: Weakness, Slurred speech Disposition: ADMITTED IP TO THIS [facility] Condition: Stable Referrals: None,Stated [REFERRING] - 1-2 days Time of Disposition: 14:40
[2022-10-27 11:34] LABS: Basophils % (A) 0 %; Eosinophils % (A) 0 %; HCT 41.6 % (34.0-46.0); HGB 12.7 gm/dL (11.4-16.0); Hypochromasia Slight; Lymphocytes # (A) 3.5 k/uL (1.0-4.8); Lymphocytes % (A) 36 %; MCH 28.2 pg (25.0-35.0); MCHC 30.6 g/dL (31.0-37.0); MCV 92.3 fL (80.0-100.0); Mean Platelet Volume 7.4; Monocytes # (A) 0.4 k/uL (0-1.0); Monocytes % (A) 4 %; Neutrophils # (A) 5.6 k/uL (1.3-7.7); Neutrophils % (A) 58 %; Platelet Count 459 k/uL (150-450); RDW 14.6 % (11.5-15.5); WBC 9.7 k/uL (3.8-10.6)
[2022-10-27 11:49] LABS: ALT 47 U/L (4-34); AST 24 U/L (14-36); African American GFR (CKD) 79 (>60 ml/min/1.73 sqM); Albumin 4.6 g/dL (3.5-5.0); Alkaline Phosphatase 151 U/L (38-126); Anion Gap 10 mmol/L; Blood Urea Nitrogen 15 mg/dL (7-17); Calcium 9.5 mg/dL (8.4-10.2); Carbon Dioxide 27 mmol/L (22-30); Chloride 103 mmol/L (98-107); Glucose 86 mg/dL (74-99); Magnesium 1.9 mg/dL (1.6-2.3); Non-African American GFR(CKD) 68 (>60 ml/min/1.73 sqM); Potassium 4.7 mmol/L (3.5-5.1); Sodium 140 mmol/L (137-145); Total Bilirubin 0.3 mg/dL (0.2-1.3); Total Protein 7.7 g/dL (6.3-8.2)
[2022-10-27 11:51] LABS: INR 0.9 (<1.2); Partial Thromboplastin Time 27.7 sec (22.0-30.0); Prothrombin Time 9.9 sec (9.0-12.0)
--- NOTE | 2022-10-27 12:04 | XR ---
EXAMINATION TYPE: XR chest 2V DATE OF EXAM: 10/27/2022 11:51 AM COMPARISON: Chest radiographs from 10/18/2022 TECHNIQUE: XR chest 2V Frontal and lateral views of the chest. CLINICAL INDICATION:Female, 62 years old with history of Weakness; FINDINGS: Patient is rotated which limits evaluation. Lungs/Pleura: There is flattening of the diaphragm with increased lucency of the lungs. No evidence o f pneumothorax, pleural effusion or focal consolidation. Pulmonary vascularity: Unremarkable. Heart/mediastinum: Cardiomediastinal silhouette is unremarkable. Musculoskeletal: No acute osseous pathology. Mild anterior wedging of the midthoracic spine redemonst rated. Remote left-sided rib fractures. IMPRESSION: 1. No acute cardiopulmonary disease process. 2. COPD changes.
[2022-10-27 12:07] LABS: Lithium <0.2 mmol/L
--- NOTE | 2022-10-27 12:07 | CT ---
EXAMINATION TYPE: CT brain wo con CT DLP: 1096.4 mGycm, Automated exposure control for dose reduction was used. DATE OF EXAM: 10/27/2022 11:52 AM COMPARISON: CT brain C-spine 10/18/2021. CLINICAL INDICATION:Female, 62 years old with history of weakness, weakness, slurred speech TECHNIQUE: Brain: Multiple axial CT images of the brain were obtained without IV contrast. Coronal and sagittal reformats reviewed. FINDINGS: Brain: Extra-axial spaces: No abnormal extra-axial fluid collections. Ventricular system: Within normal limits Cerebral parenchyma: Mild cerebral volume loss. No acute intraparenchymal hemorrhage or mass effect. The cleaning-white junction is well differentiated. Cerebellum: Unremarkable. Mass effect: No evidence of midline shift. Intracranial vasculature: Atherosclerotic calcifications of the intracranial vessels. Soft tissues: Normal. Calvarium/osseous structures: No depressed skull fracture. Mild degenerative changes of the left TMJ. Paranasal sinuses and mastoid air cells: Clear Visualized orbits: Orbital contents are intact. IMPRESSION: No acute intracranial process.
[2022-10-27 13:45] LABS: Appearance,Urine Clear (Clear); Bilirubin,Urine Negative (Negative); Blood,Urine Negative (Negative); Color,Urine Yellow; Glucose,Urine (UA) Negative (Negative); Ketones,Urine Negative (Negative); Leukocyte Esterase,Urine Negative (Negative); Nitrite,Urine Negative (Negative); PH, Urine 5.5 (5.0-8.0); Protein,Urine Negative (Negative); Specific Gravity,Urine 1.018 (1.001-1.035); Urobilinogen,Urine <2.0 mg/dL (<2.0)
[2022-10-27] MEDS ORDERED: NALOXONE 0.4 MG/ML 1 ML VIAL IV PRN (14:25)
--- NOTE | 2022-10-27 18:15 | P.CNNES ---
History of Present Illness Consult date: 10/27/22 Requesting physician: Rin Conde Reason for Consult: weakness, slurred speech History of Present Illness: Patient is a 62-year-old right-handed female who was sent from her primary care physician's office to rule out stroke. Patient states that her coworkers told her that she was slurring, although patient completely denies any slurring. She states that she does not have any dentition, therefore this is how she speaks. She denies any focal numbness, tingling, any weakness, visual disturbance, headache. Denies any stroke symptoms whatsoever. Patient says that she did start 2 new medications Depakote and Zyprexa just a few days ago and was perhaps having some side effects from the medication. She also says that she has been in and out of hospital recently. She denies any focal weakness. She is con fused as to why she is in the hospital. Her balance is fine, does not use any cane or any assistive device for walking. Vital signs on arrival blood pressure 119/74, pulse rate 74 temperature 97.9. Blood test shows normal CBC, PT/PTT, normal Chem-7, hepatic panel with AST normal 24 and ALT 47. Troponin negative. UA negative, lithium level negative. Influenza screen, RSV and coronal virus PCR negative. EKG shows sinus rhythm, chest x-ray showed no acute cardio primary process. COPD changes. CT head revealed no acute intracranial process. I personally reviewed CT head, agree with the findings, no acute process. Patient has history of diabetes for 6 years, denies hypertension or hype rlipidemia. Denies any history of strokes or TIA. She has smoked 1 pack per day since age 15, still smokes. She is to drink a fifth of vodka, and a case of beer almost on a daily basis for 20 years, quit drinking 5 years ago. She has done substance abuse with perception medications including Vicodin in the past, but none at this time. Patient has 1 child. She currently lives in a shelter called [facility]. Review of Systems Constitutional: Reports weight gain, Denies chills, Denies fever Eyes: denies blurred vision, denies diplopia, denies pain Ears: deny: decreased hearing, ear discharge, earache Ears, nose, mouth and throat: Denies headache, Denies sore throat Cardiovascular: Denies chest pain, Denies shortness of breath Respiratory: Denies cough, Denies excessive sputum Gastrointestinal: Denies abdominal pain, Denies diarrhea, Denies nausea, Denies vomiting Genitourinary: Denies dysuria, Denies hematuria Musculoskeletal: Denies low back pain, Denies myalgias, Denies neck pain Integumentary: Denies pruritus, Denies rash Neurological: Reports as per HPI Psychiatric: Denies anxiety, Denies depression Endocrine: Reports weight change, Denies fatigue Hematologic/Lymphatic: Denies easy bleeding, Denies easy bruising Past Medical History Past Medical History: Cancer, COPD, CVA/TIA, Diabetes Mellitus, GERD/Reflux, Hyperlipidemia, Renal Disease Additional Past Medical History / Comment(s): Chronic pancreatitis, wt loss of 60-70 pounds in 2021, HEART MURMUR AND ENLARGED AORTA, tia's, colon polyps- benign, "blood pressure tends to run low ended up in ICU" pt states recent UTI treated, mrele neuropathy, throat CA at age 6, chronic bronchitis recent fall with 7 left rib fractures, hematoma to right forehead in past, History of Any Multi-Drug Resistant Organisms: MRSA Date of last positivie culture/infection: 10/20/21 MDRO Source:: Head Past Surgical History: Appendectomy Additional Past Surgical History / Comment(s): CYST REMOVED FROM NECK, RT 3RD/4TH FINGER PARTIAL AMP D/T INJURY, lt ureter stent, COLONOSCOPY/POLYPECTOMY Past Anesthesia/Blood Transfusion Reactions: No Reported Reaction, Motion Sickness, Postoperative Nausea & Vomiting (PONV) Past Psychological History: Anxiety, Bipolar, Depression, PTSD, Schizophrenia Smoking Status: Current every day smoker Past Alcohol Use History: None Reported Past Drug Use History: Methamphetamine, Prescription Drug Abuse - Past Family History Father Family Medical History: Liver Disease Additional Family Medical History / Comment(s): Father at age 78 from cirrhosis of the liver. Mother Family Medical History: No Reported History Additional Family Medical History / Comment(s): Mother is alive in her 80s Sister(s) Family Medical History: Coronary Artery Disease (CAD) Additional Family Medical History / Comment(s): Patient has 2 sisters and one has from an overdose. She has 1 brother with no major medical problems. 4cm aortic aneurysm Medications and Allergies Home Medications Medication Instructions Recorded Confirmed Type Ergocalciferol (Vitamin D2) 1,250 mcg PO WE@0800 10/04/22 10/27/22 History [Drisdol (50,000 Iu)] Insulin Glargine,Hum.rec.anlog 16 units SQ HS@209910/04/22 10/27/22 History [Lantus Solostar Pen] Lipase/Protease/Amylase [Zenpep Dr 2 cap PO TID@0800,1700,2100 10/04/22 10/27/22 History 5,000 Unit Capsule] metFORMIN HCL ER [Glucophage XR] 1,000 mg PO BID@0800,1700 10/04/22 10/27/22 History sitaGLIPtin [Januvia] 100 mg PO DAILY@0800 10/04/22 10/27/22 History ARIPiprazole IM SYRINGE [Abilify 400 mg IM Q28D #1 each 10/11/22 10/27/22 Rx Maintena Syringe] Albuterol Inhaler [Ventolin Hfa 2 puff INHALATION RT-QID PRN each 10/11/22 10/27/22 Rx Inhaler] Nicotine Gum (Polacrilex) 2 mg BUCCAL Q2HR PRN 30 Days #360 10/11/22 10/27/22 Rx [Nicorette] pieceofgum OLANZapine [ZyPREXA] 5 mg PO HS@209910/18/22 10/27/22 History clonazePAM [KlonoPIN] 1 mg PO TID@0800,1600,209910/18/22 10/27/22 History glipiZIDE XL [Glucotrol XL] 20 mg PO W/BRKFST 10/18/22 10/27/22 History hydrOXYzine pamoate [Vistaril] 100 mg PO HS@199910/18/22 10/27/22 History lamoTRIgine 200 mg PO DAILY@0800 10/18/22 10/27/22 History Divalproex ER [Depakote ER] 500 mg PO HS #30 tab 10/20/22 10/27/22 Rx Allergies Allergy/AdvReac Type Severity Reaction Status Date / Time No Known Allergies Allergy Verified 10/27/22 12:36 Physical Examination - Vital Signs Vital Signs: Vital Signs Temp Pulse Resp BP Pulse Ox 10/27/22 17:39 98.8 F 80 18 126/90 98 10/27/22 14:47 82 18 119/70 100 10/27/22 12:00 71 18 104/72 100 10/27/22 10:50 97.9 F 74 18 119/74 99 Intake and Output 10/27/22 10/27/22 10/27/22 06:59 14:59 22:59 Other: Weight 63.503 kg Patient is a middle aged female, in no acute distress. Patient is alert awake oriented to time place and person. She knows it is October 2022 and that she is in [facility] in [place]. Speech and language functions are normal. There is no aphasia, or dysarthria. Patient has no dentition, therefore speaks with edentulous speech, but completely normal. Patient can name and repeat very well. Attention, concentration and fund of knowledge is adequate. On cranial nerve examination, pupils are equal, round and reacting to light, visual obrien are full on confrontation, with no neglect on double simultaneous stimulation. Extraocular muscles are intact with no nystagmus. Face is symmetric, tongue protrudes to the midline. Palatal elevation and sensation normal, hearing and shoulder shrug normal, facial sensation normal. On muscle strength testing, there is no pronator drift and the strength is normal in arms and legs distally and proximally. Deep tendon reflexes are symmetric biceps 1+, brachioradialis 1+, knees 2, ankles 1 and plantars downgoing bilaterally. Sensory to touch is equal with no neglect on double simultaneous stimulation. Cerebellar function showed no ataxia for tkirmn-th-bmza testing. No dysdiadochokinesia. No ataxia for inla-ig-tbcn testing on either side. Tone and bulk of muscles normal. Gait deferred.. On general examination, there is no carotid bruit heard on either side, there is no cardiac murmur, S1-S2 audible. Chest is clear on consultation. Abdomen is soft nontender. No organomegaly, bowel sounds present. Peripheral pulses are present. No edema. Results - Laboratory Findings CBC and BMP: 10/27/22 10:58 10/27/22 10:58 Abnormal Lab Findings: Abnormal Labs 10/27/22 10/27/22 10:58 10:58 MCHC 30.6 L Plt Count 459 H ALT 47 H Alkaline Phosphatase 151 H Assessment and Plan Assessment: * Slurring of speech, likely due to being edentulous and perhaps related to medication side effect (Zyprexa and Depakote). No reported history of stroke or TIA symptoms. Current examination is completely nonfocal. * Bipolar disorder * Diabetes * Tobacco use * Previous history of alcoholism, sober for 5 years * Previous history of prescription drug abuse. Plan: * Patient denies any focal symptoms. Patient's neurological examination is normal. Her NIH stroke scale is 0. No other workup indicated. * Patient counseled about tobacco cessation. * Neurologically clear for discharge. Please reconsult neurology, if patient has any neurological symptoms or if you have any other concerns. * Dr. Hernandez will be available for any neurological concerns over the weekend. Thank you for the consult.
[2022-10-27] MEDS ORDERED: NICOTINE GUM (POLACRILEX) 2 MG GUM BUCCAL PRN (20:06)
[2022-10-27] MEDS ORDERED: ALBUTEROL HFA INHALER INHALATION PRN (20:06)
[2022-10-27 20:29] LABS: Glucose,Whole Blood 233 mg/dL (70-110)
[2022-10-27] MEDS: clonazePAM 1 MG TAB PO SCH (20:54)
[2022-10-27] MEDS: LIPASE 5,000/PROTEASE 17,000/AMYLASE 24,000 PO SCH (20:55)
[2022-10-27] MEDS ORDERED: INSULIN DETEMIR (LEVEMIR) 100 UNIT/ML SYR SQ SCH (21:00)
[2022-10-27] MEDS ORDERED: OLANZapine 5 MG TAB PO SCH (21:00)
[2022-10-27] MEDS ORDERED: DIVALPROEX ER 500 MG TAB.ER.24H PO SCH (21:00)
[2022-10-27] MEDS ORDERED: DEXTROSE 50% SYRINGE 50 ML IVP PRN ×2 (21:19)
[2022-10-27] MEDS: INSULIN ASPART (NovoLOG) 100 UNIT/ML VIAL SQ SCH (21:28)
--- NOTE | 2022-10-28 05:22 | HP ---
HISTORY AND PHYSICAL CHIEF COMPLAINT: Slurring of speech and weakness. HISTORY OF PRESENT ILLNESS: This is a 62-year-old woman with a past medical history of multiple medical problems including CVA, TIA, COPD, has presented to Dr. Brooks's office with slurring. The patient was sent to [facility] to rule out the possibility of stroke. Currently, slurring is improved. Neurology evaluation in progress. The patient's COVID and basic labs are negative except blood sugar of 233. CT of the brain, which I reviewed personally showed no acute changes. There is no history of any fever, rigors, or chills. PAST MEDICAL HISTORY: Reviewed include COPD, CVA, TIA, rest of the history and rest of the chart is also reviewed. HOME MEDICATIONS: Ventolin, doses and rest of medications are noted. ALLERGIES: None. FAMILY HISTORY: History of liver disease. SOCIAL HISTORY: Previous meth and prescription drug abuse. REVIEW OF SYSTEMS: A 14-point review is negative except as mentioned earlier. PHYSICAL EXAMINATION: VITAL SIGNS: Pulse is 69, blood pressure 120/80, and respirations 16. HEENT: Conjunctivae normal. NECK: No jugular venous distention. CARDIOVASCULAR: S1, S2 muffled. RESPIRATION: Breath sounds diminished at the bases. No rhonchi, no crackles. ABDOMEN: Soft, nontender. LEGS: No edema, no swelling. NERVOUS SYSTEM: No focal deficits. No dysarthria, no dysphasia. SKIN: No ulcer, rash, or bleeding. JOINTS: No active deforming arthropathy. LABORATORY DATA: Reviewed. CT scan reviewed. ASSESSMENT: 1. Slurring of speech, possible acute TIA. 2. History of CVA, TIA. 3. Chronic obstructive pulmonary disease. 4. History of anxiety, bipolar, depression, PTSD. 5. History of methamphetamine and prescription drug abuse. RECOMMENDATIONS AND DISCUSSION: This 62-year-old woman presented with multiple complex medical issues, we will monitor the patient closely. I would recommend to continue the current medications, continue symptomatic treatment. Otherwise, recommend urine drug screen and full neurovascular workup. Closely follow with Neurology. Prognosis guarded. Further recommendations to follow. MMODL / IJN: [id number] /
[2022-10-28 06:42] LABS: Amphetamine Screen,Urine Not Detected (NotDetected); Barbiturate Screen,Urine Not Detected (NotDetected); Benzodiazepines Screen,Urine Not Detected (NotDetected); Cocaine Screen,Urine Not Detected (NotDetected); Methadone Screen, Urine Not Detected (NotDetected); Opiate Screen,Urine Not Detected (NotDetected); Oxycodone Screen, Urine Not Detected (NotDetected); Phencyclidine Screen,Urine Not Detected (NotDetected); Tricyclic Antidepressant,Urine Not Detected (NotDetected); Urn Cannabinoid Scrn Not Detected (NotDetected)
[2022-10-28 07:27] VITALS: BP 119/76; PULSE 63; RESP 18; TEMP 97.6
[2022-10-28] MEDS ORDERED: glipiZIDE 10 MG TAB PO SCH (07:30)
[2022-10-28] MEDS ORDERED: LINAGLIPTIN 5 MG TABLET PO SCH (08:00)
[2022-10-28] MEDS ORDERED: metFORMIN 500 MG TAB PO SCH (08:00)
[2022-10-28] MEDS ORDERED: lamoTRIgine 100 MG TAB PO SCH (08:00)
[2022-10-28] MEDS: INSULIN ASPART (NovoLOG) 100 UNIT/ML VIAL SQ SCH (08:15)
[2022-10-28] MEDS: clonazePAM 1 MG TAB PO SCH (08:20)
[2022-10-28] MEDS: LIPASE 5,000/PROTEASE 17,000/AMYLASE 24,000 PO SCH (08:21)
--- NOTE | 2022-10-28 08:27 | US ---
EXAMINATION TYPE: US carotid duplex BILAT DATE OF EXAM: 10/28/2022 COMPARISON: NONE CLINICAL INDICATION: Female, 62 years old with history of stroke; No HTN per patient. Ultrasound paulina h tried to get history from patient but patient states she doesn't know why this is getting done. TECHNIQUE: Carotid duplex ultrasound examination. Indirect Doppler criteria was utilized. FINDINGS: EXAM MEASUREMENTS: RIGHT: Peak Systolic Velocity (PSV) cm/sec ----- Right CCA: 55.5 ----- Right ICA: 65.8 ----- Right ECA: 63.9 ICA/CCA ratio: 1.2 RIGHT: End Diastole cm/sec ----- Right CCA: 15.9 ----- Right ICA: 24.7 ----- Right ECA: 9.0 LEFT: Peak Systolic Velocity (PSV) cm/sec ----- Left CCA: 56.9 ----- Left ICA: 110.0 ----- Left ECA: 48.3 ICA/CCA ratio: 1.9 LEFT: End Diastole cm/sec ----- Left CCA: 19.3 ----- Left ICA: 32.7 ----- Left ECA: 7.3 VERTEBRALS (direction of flow): Right Vertebral: Antegrade Left Vertebral: Antegrade Rhythm: Normal PRODUCTION COUNTER NOTES: No elevated velocities or significant stenosis at time of scan. Plaque visualized bilateral bulbs, mid right CCA and left CCA. IMPRESSION: Less than 50% stenosis of the bilateral carotid bifurcations. Criteria for Assigning % of Stenosis / Diameter reduction (Estimation based on the indirect measurements of the internal carotid artery velocities (ICA PSV). 1. Normal (no stenosis)=ICA PSV < 125 cm/s: ratio < 2.0: ICA EDV<40 cm/s. 2. Less than 50% stenosis=ICA PSV < 125 cm/s: ratio < 2.0: ICA EDV<40 cm/s. 3. 50 to 69% stenosis=ICA PSV of 125 to 230 cm/s: ration 2.0 ? 4.0: ICA EDV 40-100 cm/s. 4. Greater than 70% stenosis to near occlusion= ICA PSV > 230 cm/s: ratio > 4.0: ICA EDV > 100 cm/s. 5. Near occlusion= ICA PSV velocities may be low or undetectable: variable ratio and ICA EDV. 6. Total occlusion=unable to detect flow.
[2022-10-28] MEDS ORDERED: HEPARIN SODIUM,PORCINE/PF 5,000 UNIT/0.5 ML SYRINGE SQ SCH (09:00)
[2022-10-28 09:16] LABS: HGB 10.9 g/dL (12.0-15.0); MCH 28.2 pg (27.0-32.0); MCHC 31.1 g/dL (32.0-37.0); MCV 90.7 fL (80.0-97.0); NRBC Per 100 WBC 0 /100 WBCS (0.0-0.0); Platelet Count 418 X 10*3/uL (140-440); RBC 3.86 X 10*6/uL (4.10-5.20); RDW 14.2 % (11.5-14.5); WBC 10.86 X 10*3/uL (4.50-10.00)
[2022-10-28 09:53] LABS: ALT 38 U/L (8-44); AST 14 U/L (13-35); African American GFR (CKD) 92.2 (60.0-200.0); Alkaline Phosphatase 143 U/L (41-126); BUN/Creat Ratio 21.13 Ratio (12.00-20.00); Blood Urea Nitrogen 16.9 mg/dL (9.0-27.0); Calcium 9.5 mg/dL (8.7-10.3); Carbon Dioxide 23.8 mmol/L (20.0-27.5); Chloride 103 mmol/L (96-109); Globulin 2.1 g/dL (1.6-3.3); Glucose 88 mg/dL (70-110); Non-African American GFR(CKD) 79.6 (60.0-200.0); Potassium 5.2 mmol/L (3.5-5.5); Sodium 138 mmol/L (135-145); Total Bilirubin <0.15 mg/dL (0.30-1.20); Total Protein 6.1 g/dL (6.2-8.2)
[2022-10-28 09:54] LABS: Basophils # (A) 0.01 X 10*3/uL (0.00-0.10); Basophils % (A) 0.1 %; Eosinophils # (A) 0 X 10*3/uL (0.04-0.35); Eosinophils % (A) 0 %; Immature Grans, Automated 0.5 %; Lymphocytes # (A) 5.41 X 10*3/uL (0.90-5.00); Lymphocytes % (A) 49.8 %; Monocytes # (A) 0.65 X 10*3/uL (0.20-1.00); Neutrophils # (A) 4.74 X 10*3/uL (1.80-7.70); Neutrophils % (A) 43.6 %
--- NOTE | 2022-10-28 13:14 | DS ---
DISCHARGE SUMMARY FINAL DIAGNOSES: 1. Slurring of speech, possible acute transient ischemic attack. 2. History of cerebrovascular accident, transient ischemic attack. 3. Chronic obstructive pulmonary disease. 4. History of anxiety, bipolar, depression, and post-traumatic stress disorder. 5. History of methamphetamine and prescription drug abuse remotely. DISCHARGE DISPOSITION: The patient will be discharged in stable condition. Guarded prognosis. HISTORY OF PRESENT ILLNESS: This is a 62-year-old woman with a past medical history of multiple medical problems, admitted with slurring. TIA was suspected. Neurology saw the patient. The basic neurovascular workup did not show any acute abnormality and recommended the patient be discharged and follow up with Neurology and primary physician in the outpatient setting. Resume the home medications and initiate Ecotrin. Follow up with Neurology as recommended. Prognosis guarded. Further recommendations to follow. DISCHARGE MEDICATIONS: See the medication reconciliation sheet for list of medications. MMODL / IJN: [id number] /
[2022-10-28] MEDS ORDERED: hydrOXYzine pamoate 25 MG CAP PO SCH (20:00)
[2022-10-31 20:11] LABS: Glucose,Whole Blood 87 mg/dL (70-110)
[2022-11-01] MEDS ORDERED: ERGOCALCIFEROL 1,250 MCG (50,000 IU) CAPSULE PO SCH (08:00)
[2022-11-06] MEDS ORDERED: ARIPiprazole IM SYRINGE 400 MG (NO CHARGE) PHARMACY STOCK IM SCH (09:00)
== END 2022-10-28 10:36 | disposition home or self-care (01) ==
LOC: EC 10:47 → 6NMEDSUR 15:18
PROVIDERS: ADMIT Internal Medicine; ATTEND Internal Medicine
DX: R47.81 Slurred speech (principal); R53.1 Weakness; Z86.73 Personal history of transient ischemic attack (TIA), and cerebral infarction without residual deficits; J44.9 Chronic obstructive pulmonary disease, unspecified; I71.21 Aneurysm of the ascending aorta, without rupture; F41.9 Anxiety disorder, unspecified; F31.9 Bipolar disorder, unspecified; F43.10 Post-traumatic stress disorder, unspecified; Z20.822 Contact with and (suspected) exposure to COVID-19; Z83.49 Family history of other endocrine, nutritional and metabolic diseases; F17.210 Nicotine dependence, cigarettes, uncomplicated; Z87.898 Personal history of other specified conditions; K21.9 Gastro-esophageal reflux disease without esophagitis; E78.5 Hyperlipidemia, unspecified; N28.9 Disorder of kidney and ureter, unspecified; F10.11 Alcohol abuse, in remission; K86.1 Other chronic pancreatitis; R01.1 Cardiac murmur, unspecified; Z86.010 Personal history of colon polyps; E11.40 Type 2 diabetes mellitus with diabetic neuropathy, unspecified; Z85.21 Personal history of malignant neoplasm of larynx; Z86.14 Personal history of Methicillin resistant Staphylococcus aureus infection; Z90.49 Acquired absence of other specified parts of digestive tract; Z98.890 Other specified postprocedural states; F20.9 Schizophrenia, unspecified; Z83.79 Family history of other diseases of the digestive system; Z82.49 Family history of ischemic heart disease and other diseases of the circulatory system; Z79.84 Long term (current) use of oral hypoglycemic drugs; Z79.4 Long term (current) use of insulin; Z79.899 Other long term (current) drug therapy
CPT/HCPCS: 99285; 36415; 94760; 93005; 80053 ×2; 83605; 80178; 83735; 84484; 85025 ×2; 85610; 85730; 81003; 80306; 83036; 87636; 71046; 93880; 70450; G0378 ×2

== ENCOUNTER → 2022-11-28 | Outpatient (CLI) | payer OTHER | END | disposition home or self-care (01) | LOC: LABWHC1 09:39 | PROVIDERS: ATTEND Psychiatry & Neurology Psychiatry | DX: Z51.81 Encounter for therapeutic drug level monitoring (principal); F31.2 Bipolar disorder, current episode manic severe with psychotic features; Z79.899 Other long term (current) drug therapy | CPT/HCPCS: 36415; 80164 ==

== ENCOUNTER → 2023-02-07 | Outpatient (CLI) | payer OTHER ==
--- NOTE | 2023-02-07 16:59 | CA ---
Transthoracic Echo Report Name: Helena Tripp Age: 62 Gender: F : 1960 Exam Date: 02/07/2023 13:01 Exam Location: [place] [facility] Ht (in): 64 Wt (lb): 138 Ordering Physician: Saba Velasquez MD Attending/Referring Phys: Assurance Engineer La Dial [facility] Procedure CPT: Indications: Z86.73 hx of stroke Cardiac Hx: Technical Quality: Fair Contrast 1: Total Dose (mL): Contrast 2: Total Dose (mL): MEASUREMENTS (Male / Female) Normal Values 2D ECHO LV Diastolic Diameter PLAX 4.2 cm 4.2 - 5.9 / 3.9 - 5.3 cm LV Systolic Diameter PLAX 3.2 cm IVS Diastolic Thickness 0.9 cm 0.6 - 1.0 / 0.6 - 0.9 cm LVPW Diastolic Thickness 1.2 cm 0.6 - 1.0 / 0.6 - 0.9 cm LV Relative Wall Thickness 0.5 LVOT Diameter 2.0 cm Ascending Aorta Diameter 3.6 cm M-MODE Aortic Root Diameter MM 2.5 cm LA Systolic Diameter MM 3.2 cm LA Ao Ratio MM 1.3 AV Cusp Separation MM 1.2 cm DOPPLER AV Peak Velocity 129.4 cm/s AV Peak Gradient 6.7 mmHg AV Mean Velocity 94.7 cm/s AV Mean Gradient 3.9 mmHg AV Velocity Time Integral 24.2 cm LVOT Peak Velocity 92.9 cm/s LVOT Peak Gradient 3.5 mmHg LVOT Velocity Time Integral 17.3 cm LVOT Stroke Volume 55.2 cm??? LVOT Stroke Volume Index 33.0 ml/m??? LVOT Cardiac Index 2353.4 cm???/min???m??? AV Area Cont Eq vti 2.3 cm??? AV Area Cont Eq pk 2.3 cm??? Mitral E Point Velocity 62.7 cm/s Mitral A Point Velocity 79.4 cm/s Mitral E to A Ratio 0.8 MV Deceleration Time 256.2 ms LV E' Lateral Velocity 7.7 cm/s Mitral E to LV E' Lateral Ratio 8.2 LV E' Septal Velocity 4.9 cm/s Mitral E to LV E' Septal Ratio 12.7 TR Peak Velocity 193.6 cm/s TR Peak Gradient 15.0 mmHg Right Atrial Pressure 3.0 mmHg Pulmonary Artery Systolic Pressu 18.0 mmHg Right Ventricular Systolic Press 18.0 mmHg FINDINGS Left Ventricle Mildly increased posterior wall thickness. Left ventricular cavity size normal. Normal left ventricular systolic function with no obvious regional wall motion abnormalities. Left ventricular ejection fraction is estimated at 50-55%. Right Ventricle Normal right ventricular size and function. Right Atrium Normal right atrial size. Negative agitated saline bubble study for right to left shunt. Left Atrium Normal left atrial size. Mitral Valve Structurally normal mitral valve. Mild thickening/calcification of the posterior mitral valve leaflet. Aortic Valve Trileaflet aortic valve. Focal thickening of the aortic valve cusps. Aortic valve sclerosis. No aortic regurgitation. Tricuspid Valve Structurally normal tricuspid valve. Trace tricuspid regurgitation. Pulmonic Valve Pulmonic valve not well visualized. Pericardium No pericardial effusion. Echo free space anterior to the right ventricle likely represents a fat pad. Aorta Normal size aortic root and proximal ascending aorta. CONCLUSIONS Normal LV systolic function Negative agitated saline contrast study Consider transesophageal echo to definitively rule out cardiac source for thromboembolic phenomenon Previewed by: Dr. Marc Austin MD (Electronically Signed) Final Date: 07 February 2023 16:58
== END | disposition home or self-care (01) ==
LOC: RADECHMAIN 12:39
PROVIDERS: ATTEND Psychiatry & Neurology Neurology
DX: Z86.73 Personal history of transient ischemic attack (TIA), and cerebral infarction without residual deficits (principal)
CPT/HCPCS: 93306

== ENCOUNTER 2023-02-08 12:09 | Emergency (ER) | payer OTHER ==
[2023-02-08 12:21] VITALS: RESP 18; TEMP 97.7
[2023-02-08] MEDS ORDERED: SODIUM CHLORIDE 0.9% 1,000 ML IV STA (12:39)
[2023-02-08 13:13] LABS: Basophils # (A) 0.1 k/uL (0-0.2); Basophils % (A) 0 %; Eosinophils # (A) 0.2 k/uL (0-0.7); Eosinophils % (A) 2 %; HCT 34.6 % (34.0-46.0); HGB 11.7 gm/dL (11.4-16.0); Lymphocytes # (A) 4.3 k/uL (1.0-4.8); Lymphocytes % (A) 42 %; MCH 31.1 pg (25.0-35.0); MCHC 33.9 g/dL (31.0-37.0); MCV 91.7 fL (80.0-100.0); Mean Platelet Volume 8.1; Monocytes # (A) 0.5 k/uL (0-1.0); Monocytes % (A) 5 %; Neutrophils # (A) 5.1 k/uL (1.3-7.7); Neutrophils % (A) 49 %; Platelet Count 261 k/uL (150-450); RBC 3.77 m/uL (3.80-5.40); RDW 13.8 % (11.5-15.5); WBC 10.3 k/uL (3.8-10.6)
--- NOTE | 2023-02-08 13:22 | ED ---
General Adult HPI - General Chief complaint: Fall Stated complaint: Fall Time Seen by Provider: 02/08/23 12:21 Source: patient, EMS, RN notes reviewed Mode of arrival: EMS Limitations: no limitations - History of Present Illness Initial comments: 62-year-old female presents emergency Department with chief complaint of near- syncope. Patient states she was walking store states that she became very lightheaded. Patient that she did not lose conscious. She did not want having injury. She states she's felt very weak that she has not passed out. Denies chest pain shortness of breath no headache or focal weakness abdominal pain no other complaints. She states not been eating and drinking as much as usual. - Related Data Home Medications Medication Instructions Recorded Confirmed Ergocalciferol (Vitamin D2) 1,250 mcg PO WE@0800 10/04/22 10/27/22 [Drisdol (50,000 Iu)] Insulin Glargine,Hum.rec.anlog 16 units SQ HS@209910/04/22 10/27/22 [Lantus Solostar Pen] Lipase/Protease/Amylase [Zenpep Dr 2 cap PO TID@0800,1700,209910/04/22 10/27/22 5,000 Unit Capsule] metFORMIN HCL ER [Glucophage XR] 1,000 mg PO BID@0800,1700 10/04/22 10/27/22 sitaGLIPtin [Januvia] 100 mg PO DAILY@0800 10/04/22 10/27/22 OLANZapine [ZyPREXA] 5 mg PO HS@209910/18/22 10/27/22 clonazePAM [KlonoPIN] 1 mg PO TID@0800,1600,209910/18/22 10/27/22 glipiZIDE XL [Glucotrol XL] 20 mg PO W/BRKFST 10/18/22 10/27/22 hydrOXYzine pamoate [Vistaril] 100 mg PO HS@199910/18/22 10/27/22 lamoTRIgine 200 mg PO DAILY@0800 10/18/22 10/27/22 Previous Rx's Medication Instructions Recorded ARIPiprazole IM SYRINGE [Abilify 400 mg IM Q28D #1 each 10/11/22 Maintena Syringe] Albuterol Inhaler [Ventolin Hfa 2 puff INHALATION RT-QID PRN each 10/11/22 Inhaler] Nicotine Gum (Polacrilex) 2 mg BUCCAL Q2HR PRN 30 Days #360 10/11/22 [Nicorette] pieceofgum Divalproex ER [Depakote ER] 500 mg PO HS #30 tab 10/20/22 Aspirin EC [Ecotrin Low Dose] 81 mg PO DAILY #30 tab 10/28/22 Pantoprazole Sodium [Protonix] 40 mg PO DAILY #30 tab 10/28/22 Ibuprofen [Motrin] 600 mg PO Q8HR PRN #20 tab 01/12/23 Lidocaine 5% Patch [Lidoderm 5% 1 patch TOPICAL DAILY #7 patch 01/12/23 Patch] Allergies Allergy/AdvReac Type Severity Reaction Status Date / Time No Known Allergies Allergy Verified 02/08/23 12:15 Review of Systems ROS Statement: Those systems with pertinent positive or pertinent negative responses have been documented in the HPI. ROS Other: All systems not noted in ROS Statement are negative. 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 6, chronic bronchitis recent fall with 7 left rib fractures, hematoma to right forehead in past, History of Any Multi-Drug Resistant Organisms: MRSA Date of last positivie culture/infection: 10/20/21 MDRO Source:: Head Past Surgical History: Appendectomy Additional Past Surgical History / Comment(s): CYST REMOVED FROM NECK, RT 3RD/4TH FINGER PARTIAL AMP D/T INJURY, lt ureter stent, COLONOSCOPY/POLYPECTOMY Past Anesthesia/Blood Transfusion Reactions: No Reported Reaction, Motion Sickness, Postoperative Nausea & Vomiting (PONV) Past Psychological History: Anxiety, Bipolar, Depression, PTSD, Schizophrenia Smoking Status: Current every day smoker Past Alcohol Use History: None Reported Past Drug Use History: Methamphetamine, Prescription Drug Abuse - Past Family History Father Family Medical History: Liver Disease Additional Family Medical History / Comment(s): Father at age 78 from cirrhosis of the liver. Mother Family Medical History: No Reported History Additional Family Medical History / Comment(s): Mother is alive in her 80s Sister(s) Family Medical History: Coronary Artery Disease (CAD) Additional Family Medical History / Comment(s): Patient has 2 sisters and one has from an overdose. She has 1 brother with no major medical problems. 4cm aortic aneurysm General Exam Limitations: no limitations General appearance: alert, in no apparent distress Head exam: Present: atraumatic, normocephalic, normal inspection Eye exam: Present: normal appearance, PERRL, EOMI. Absent: scleral icterus, conjunctival injection, periorbital swelling ENT exam: Present: normal exam, normal oropharynx, mucous membranes moist Neck exam: Present: normal inspection, full ROM. Absent: tenderness, meningismus, lymphadenopathy Respiratory exam: Present: normal lung sounds bilaterally. Absent: respiratory distress, wheezes, rales, rhonchi, stridor Cardiovascular Exam: Present: regular rate, normal rhythm, normal heart sounds. Absent: systolic murmur, diastolic murmur, rubs, gallop, clicks GI/Abdominal exam: Present: soft, normal bowel sounds. Absent: distended, tenderness, guarding, rebound, rigid Neurological exam: Present: alert, oriented X3, CN II-XII intact, reflexes normal. Absent: motor sensory deficit Course Vital Signs 02/08/23 02/08/23 12:15 13:23 Temperature 97.7 F Pulse Rate 82 Pulse Rate [ 86 Left Sitting Pulse Oximetery ] Pulse Rate [ 90 Left Standing Pulse Oximetery ] Pulse Rate [ 79 Left Supine Pulse Oximetery ] Respiratory 18 Rate Blood Pressure 102/72 Blood Pressure 103/84 [Right Arm Sitting] Blood Pressure 119/85 [Right Arm Standing] Blood Pressure 111/77 [Right Arm Supine] O2 Sat by Pulse 96 98 Oximetry EKG Findings - EKG Comments: EKG Findings:: EKG plan at 13:05 sinus rhythm with rate of 79 MI 205 QRS 91 QT/QTC 359/394 - EKG Results: EKG: interpreted by SELMA Medical Decision Making - Medical Decision Making Was pt. sent in by a medical professional or institution (, PA, GROUNDMAN/LINEMAN, urgent care, hospital, or half-way...) When possible be specific @ -No Did you speak to anyone other than the patient for history (EMS, parent, family, police, friend...)? What history was obtained from this source @ -No Did you review nursing and triage notes (agree or disagree)? Why? @ -I reviewed and agree with nursing and triage notes Were old charts reviewed (outside hosp., previous admission, EMS record, old EKG, old radiological studies, urgent care reports/EKG's, half-way records)? Report findings @ -No old charts were reviewed Differential Diagnosis (chest pain, altered mental status, abdominal pain women, abdominal pain men, vaginal bleeding, weakness, fever, dyspnea, syncope, headache, dizziness, GI bleed, back pain, seizure, CVA, palpatations, mental health, musculoskeletal)? @ -Differential Dizziness: Benign paroxysmal positional Vertigo, Menieres disease, otitis media, acoustic neuroma, vertebrobasilar insufficiency, cerebellar stroke, encephalitis, hypovolemic, arrhythmia, coronary artery syndrome, anemia, this is not meant to be an all-inclusive liste EKG interpreted by me (3pts min.). @ -As above X-rays interpreted by me (1pt min.). @ -Chest x-ray is unremarkable. CT interpreted by me (1pt min.). @ -None done U/S interpreted by me (1pt. min.). @ -None done What testing was considered but not performed or refused? (CT, X-rays, U/S, labs)? Why? @ -None What meds were considered but not given or refused? Why? @ -None Did you discuss the management of the patient with other professionals (professionals i.e. , PA, GROUNDMAN/LINEMAN, lab, RT, psych nurse, psychosocial rehabilitation counselor, four h agent, teacher, staff air tactical officer, case assistant)? Give summary @ -No Was smoking cessation discussed for >3mins.? @ -No Was critical care preformed (if so, how long)? @ -No Were there social determinants of health that impacted care today? How? (Homelessness, low income, unemployed, alcoholism, drug addiction, trans portation, low edu. Level, literacy, decrease access to med. care, residential, rehab)? @ -No Was there de-escalation of care discussed even if they declined (Discuss DNR or withdrawal of care, Hospice)? DNR status @ -No What co-morbidities impacted this encounter? (DM, HTN, Smoking, COPD, CAD, Cancer, CVA, ARF, Chemo, Hep., AIDS, mental health diagnosis, sleep apnea, morbid obesity)? @ -None Was patient admitted / discharged? Hospital course, mention meds given and route, prescriptions, significant lab abnormalities, going to OR and other pertinent info. @ -[Discharge patient was reevaluated and feels greatly improved after IV fluids. Patient near-syncopal episode negative workup negative orthostatics. Patient was discharged in stable condition return parameters were discussed. Undiagnosed new problem with uncertain prognosis? @ -No Drug Therapy requiring intensive monitoring for toxicity (Heparin, Nitro, Insulin, Cardizem)? @ -No Were any procedures done? @ -No Diagnosis/symptom? @ -Near-syncope Acute, or Chronic, or Acute on Chronic? @ -Acute Uncomplicated (without systemic symptoms) or Complicated (systemic symptoms)? @ -complicated Side effects of treatment? @ -No Exacerbation, Progression, or Severe Exacerbation? @ -No Poses a threat to life or bodily function? How? (Chest pain, USA, MS, pneumonia, PE, COPD, DKA, ARF, appy, cholecystitis, CVA, Diverticulitis, Homicidal, Suicidal, threat to staff... and all critical care pts) @ -No - Lab Data Result diagrams: 02/08/23 13:04 02/08/23 13:04 Lab Results 02/08/23 02/08/23 02/08/23 Range/Units 13:04 13:04 13:04 WBC 10.3 (3.8-10.6) k/uL RBC 3.77 L (3.80-5.40) m/uL Hgb 11.7 (11.4-16.0) gm/dL Hct 34.6 (34.0-46.0) % MCV 91.7 (80.0-100.0) fL MCH 31.1 (25.0-35.0) pg MCHC 33.9 (31.0-37.0) g/dL RDW 13.8 (11.5-15.5) % Plt Count 261 (150-450) k/uL MPV 8.1 Neutrophils % 49 % Lymphocytes % 42 % Monocytes % 5 % Eosinophils % 2 % Basophils % 0 % Neutrophils # 5.1 (1.3-7.7) k/uL Lymphocytes # 4.3 (1.0-4.8) k/uL Monocytes # 0.5 (0-1.0) k/uL Eosinophils # 0.2 (0-0.7) k/uL Basophils # 0.1 (0-0.2) k/uL PT 10.4 (9.0-12.0) sec INR 1.0 (<1.2) APTT 26.3 (22.0-30.0) sec Sodium 140 (137-145) mmol/L Potassium 4.8 (3.5-5.1) mmol/L Chloride 105 (98-107) mmol/L Carbon Dioxide 22 (22-30) mmol/L Anion Gap 13 mmol/L BUN 24 H (7-17) mg/dL Creatinine 0.98 (0.52-1.04) mg/dL Est GFR (CKD-EPI)AfAm 72 (>60 ml/min/1.73 sqM) Est GFR (CKD-EPI)NonAf 62 (>60 ml/min/1.73 sqM) Glucose 84 (74-99) mg/dL Calcium 9.1 (8.4-10.2) mg/dL Magnesium 1.7 (1.6-2.3) mg/dL Total Bilirubin 0.2 (0.2-1.3) mg/dL AST 22 (14-36) U/L ALT 22 (4-34) U/L Alkaline Phosphatase 62 (38-126) U/L Troponin I (0.000-0.034) ng/mL Total Protein 6.7 (6.3-8.2) g/dL Albumin 3.9 (3.5-5.0) g/dL 02/08/23 Range/Units 13:04 WBC (3.8-10.6) k/uL RBC (3.80-5.40) m/uL Hgb (11.4-16.0) gm/dL Hct (34.0-46.0) % MCV (80.0-100.0) fL MCH (25.0-35.0) pg MCHC (31.0-37.0) g/dL RDW (11.5-15.5) % Plt Count (150-450) k/uL MPV Neutrophils % % Lymphocytes % % Monocytes % % Eosinophils % % Basophils % % Neutrophils # (1.3-7.7) k/uL Lymphocytes # (1.0-4.8) k/uL Monocytes # (0-1.0) k/uL Eosinophils # (0-0.7) k/uL Basophils # (0-0.2) k/uL PT (9.0-12.0) sec INR (<1.2) APTT (22.0-30.0) sec Sodium (137-145) mmol/L Potassium (3.5-5.1) mmol/L Chloride (98-107) mmol/L Carbon Dioxide (22-30) mmol/L Anion Gap mmol/L BUN (7-17) mg/dL Creatinine (0.52-1.04) mg/dL Est GFR (CKD-EPI)AfAm (>60 ml/min/1.73 sqM) Est GFR (CKD-EPI)NonAf (>60 ml/min/1.73 sqM) Glucose (74-99) mg/dL Calcium (8.4-10.2) mg/dL Magnesium (1.6-2.3) mg/dL Total Bilirubin (0.2-1.3) mg/dL AST (14-36) U/L ALT (4-34) U/L Alkaline Phosphatase (38-126) U/L Troponin I <0.012 (0.000-0.034) ng/mL Total Protein (6.3-8.2) g/dL Albumin (3.5-5.0) g/dL Disposition Clinical Impression: Near syncope Disposition: HOME SELF-CARE Condition: Stable Instructions (If sedation given, give patient instructions): Near Syncope (ED) Additional Instructions: Please return to the Emergency Department if symptoms worsen or any other concer ns. Is patient prescribed a controlled substance at d/c from ED?: No Referrals: Cecilia Cortez MD [Primary Care Provider] - 1-2 days Time of Disposition: 14:06
[2023-02-08 13:28] LABS: Partial Thromboplastin Time 26.3 sec (22.0-30.0); Prothrombin Time 10.4 sec (9.0-12.0)
[2023-02-08 13:35] LABS: ALT 22 U/L (4-34); AST 22 U/L (14-36); African American GFR (CKD) 72 (>60 ml/min/1.73 sqM); Albumin 3.9 g/dL (3.5-5.0); Alkaline Phosphatase 62 U/L (38-126); Anion Gap 13 mmol/L; Blood Urea Nitrogen 24 mg/dL (7-17); Calcium 9.1 mg/dL (8.4-10.2); Carbon Dioxide 22 mmol/L (22-30); Chloride 105 mmol/L (98-107); Glucose 84 mg/dL (74-99); Magnesium 1.7 mg/dL (1.6-2.3); Non-African American GFR(CKD) 62 (>60 ml/min/1.73 sqM); Potassium 4.8 mmol/L (3.5-5.1); Sodium 140 mmol/L (137-145); Total Bilirubin 0.2 mg/dL (0.2-1.3); Total Protein 6.7 g/dL (6.3-8.2)
--- NOTE | 2023-02-08 13:49 | XR ---
EXAMINATION TYPE: XR chest 2V DATE OF EXAM: 02/08/2023 1:37 PM COMPARISON: Chest radiographs from 10/27/2022 TECHNIQUE: XR chest 2V Frontal and lateral views of the chest. CLINICAL INDICATION:Female, 62 years old with history of syncope; FINDINGS: Lungs/Pleura: There is no evidence of pleural effusion, focal consolidation, or pneumothorax. Hyperi nflation. Pulmonary vascularity: Unremarkable. Heart/mediastinum: Cardiomediastinal silhouette is unremarkable. Atherosclerotic calcifications are seen in the aorta. Musculoskeletal: No acute osseous pathology. Anterior wedging of the T11 vertebral body redemonstrate d. Remote left-sided rib fractures. IMPRESSION: 1. No acute cardiopulmonary disease/process. 2. Mild COPD changes.
[2023-02-08 15:00] VITALS: BP 121/84; PULSE 84
== END 2023-02-08 15:08 | disposition home or self-care (01) ==
LOC: EC 12:09
DX: R55 Syncope and collapse (principal); E11.40 Type 2 diabetes mellitus with diabetic neuropathy, unspecified; J44.9 Chronic obstructive pulmonary disease, unspecified; F31.9 Bipolar disorder, unspecified; F41.9 Anxiety disorder, unspecified; F20.9 Schizophrenia, unspecified; F17.200 Nicotine dependence, unspecified, uncomplicated; F15.90 Other stimulant use, unspecified, uncomplicated; Z79.4 Long term (current) use of insulin; Z79.84 Long term (current) use of oral hypoglycemic drugs; Z79.899 Other long term (current) drug therapy; Z86.73 Personal history of transient ischemic attack (TIA), and cerebral infarction without residual deficits
CPT/HCPCS: 36415; 71046; 80053; 83735; 84484; 85025; 85610; 85730; 93005; 96360; 99285

== ENCOUNTER → 2023-02-28 | Outpatient (CLI) | payer OTHER ==
--- NOTE | 2023-02-28 10:46 | MM ---
Reason for Exam: Follow-up at short interval from prior study. Last screening mammogram was performed 6 month(s) ago. Patient History: Menarche at age 13. First Full-Term at age 22. Postmenopausal. Maternal aunt had breast cancer. Maternal aunt had breast cancer. Risk Values: [place] 5 year model risk: 1.3%. NCI Lifetime model risk: 6.4%. Prior Study Comparison: 10/13/2003 Bilateral Screening Mammogram, [facility]. 10/28/2003 Left Special View Mammogram, [facility]. 08/17/2022 Bilateral MG screening mammo w CAD, [facility]. 08/24/2022 Bilateral MG 3D work up w/cad [place], [facility]. Tissue Density: The breast tissue is heterogeneously dense. This may lower the sensitivity of mammography. Findings: Analyzed By CAD. Pattern appears stable. Subareolar parenchymal tissue appears unchanged. No increasing left breast calcifications evident. No suspicious groups of microcalcifications, spiculated or lobular masses, architectural distortion or other secondary signs of malignancy are mammographically apparent. Overall Assessment: Benign, BI-RAD 2 Management: Screening Mammogram of both breasts in 1 year. A negative mammogram report should not preclude additional follow up of suspicious palpable abnormalities. Patient should continue monthly self breast exam. A clinical breast exam by your physician is recommended on an annual basis and results should be correlated with mammographic findings. Electronically signed and approved by: Tevin Jackson D.O. Radiologis
== END | disposition home or self-care (01) ==
LOC: RADMAMWWP 09:42
PROVIDERS: ATTEND Family Medicine
DX: R92.8 Other abnormal and inconclusive findings on diagnostic imaging of breast (principal); Z78.0 Asymptomatic menopausal state; Z80.3 Family history of malignant neoplasm of breast
CPT/HCPCS: 77066; G0279; 77062

== ENCOUNTER → 2023-04-18 | Outpatient (CLI) | payer OTHER ==
--- NOTE | 2023-04-19 16:09 | MR ---
EXAMINATION TYPE: MR brain wo con DATE OF EXAM: 04/18/2023 COMPARISON: CT brain October 27, 2022 HISTORY: Personal hx TIA TECHNIQUE: Multiplanar, multisequence imaging of the brain and brainstem is performed without IV cont rast. FINDINGS: Diffusion weighted images demonstrate no evidence of a recent infarct or other diffusion abnormality. There is mild to moderate ventricular and sulcal prominence with sulcal prominence greatest superiorl y redemonstrated. A few scattered foci of T2 hyperintensity are seen throughout the white matter bila terally. Approximately 6 scattered lesions are seen. Lesions are nonspecific in appearance and distri bution. Midline structures demonstrate normal morphology. The craniocervical junction appears within normal limits. Normal vascular flow voids are present. Mild to moderate mucosal thickening in the right maxi llary sinus is now seen. The globes are intact bilaterally. IMPRESSION: 1. No MRI evidence for a recent infarct. 2. There is mild to moderate diffuse cerebral atrophy and mild to minimal chronic small vessel ischem ic change noted. 3. There is chronic right maxillary sinus disease.
== END | disposition home or self-care (01) ==
LOC: RADMRIMAIN 11:45
PROVIDERS: ATTEND Psychiatry & Neurology Neurology
DX: G31.9 Degenerative disease of nervous system, unspecified (principal); I67.82 Cerebral ischemia; J32.0 Chronic maxillary sinusitis; Z86.73 Personal history of transient ischemic attack (TIA), and cerebral infarction without residual deficits
CPT/HCPCS: 70551

== ENCOUNTER 2023-06-08 11:57 | Emergency (ER) | payer OTHER ==
[2023-06-08 12:19] VITALS: BP 112/72; PULSE 92; RESP 18; TEMP 98
--- NOTE | 2023-06-08 12:48 | ED ---
URI HPI - General Chief Complaint: Upper Respiratory Infection Stated Complaint: Sore Throat,vomiting Time Seen by Provider: 06/08/23 12:06 Source: patient, RN notes reviewed Mode of arrival: ambulatory Limitations: no limitations - History of Present Illness Initial Comments: 62-year-old female presents emergency Department chief complaint sore throat, congestion, productive cough. Patient states she's had fevers chills and bodyaches. Patient states she does have COPD has noticed increasing wheezing, shortness of breath. Patient denies any nausea vomiting diarrhea constipation patient is concerned she has COVID-19. - Related Data Home Medications Medication Instructions Recorded Confirmed Ergocalciferol (Vitamin D2) 1,250 mcg PO WE@0800 10/04/22 10/27/22 [Drisdol (50,000 Iu)] Insulin Glargine,Hum.rec.anlog 16 units SQ HS@209910/04/22 10/27/22 [Lantus Solostar Pen] Lipase/Protease/Amylase [Zenpep Dr 2 cap PO TID@0800,1700,209910/04/22 10/27/22 5,000 Unit Capsule] metFORMIN HCL ER [Glucophage XR] 1,000 mg PO BID@0800,1700 10/04/22 10/27/22 sitaGLIPtin [Januvia] 100 mg PO DAILY@0800 10/04/22 10/27/22 OLANZapine [ZyPREXA] 5 mg PO HS@209910/18/22 10/27/22 clonazePAM [KlonoPIN] 1 mg PO TID@0800,1600,209910/18/22 10/27/22 glipiZIDE XL [Glucotrol XL] 20 mg PO W/BRKFST 10/18/22 10/27/22 hydrOXYzine pamoate [Vistaril] 100 mg PO HS@199910/18/22 10/27/22 lamoTRIgine 200 mg PO DAILY@0800 10/18/22 10/27/22 Previous Rx's Medication Instructions Recorded ARIPiprazole IM SYRINGE [Abilify 400 mg IM Q28D #1 each 10/11/22 Maintena Syringe] Albuterol Inhaler [Ventolin Hfa 2 puff INHALATION RT-QID PRN each 10/11/22 Inhaler] Nicotine Gum (Polacrilex) 2 mg BUCCAL Q2HR PRN 30 Days #360 10/11/22 [Nicorette] pieceofgum Divalproex ER [Depakote ER] 500 mg PO HS #30 tab 10/20/22 Aspirin EC [Ecotrin Low Dose] 81 mg PO DAILY #30 tab 10/28/22 Pantoprazole Sodium [Protonix] 40 mg PO DAILY #30 tab 10/28/22 Ibuprofen [Motrin] 600 mg PO Q8HR PRN #20 tab 01/12/23 Lidocaine 5% Patch [Lidoderm 5% 1 patch TOPICAL DAILY #7 patch 01/12/23 Patch] Allergies Allergy/AdvReac Type Severity Reaction Status Date / Time No Known Allergies Allergy Verified 06/08/23 12:03 Review of Systems ROS Statement: Those systems with pertinent positive or pertinent negative responses have been documented in the HPI. ROS Other: All systems not noted in ROS Statement are negative. 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 6, chronic bronchitis recent fall with 7 left rib fractures, hematoma to right forehead in past, History of Any Multi-Drug Resistant Organisms: MRSA Date of last positivie culture/infection: 10/20/21 MDRO Source:: Head Past Surgical History: Appendectomy Additional Past Surgical History / Comment(s): CYST REMOVED FROM NECK, RT 3RD/4TH FINGER PARTIAL AMP D/T INJURY, lt ureter stent, COLONOSCOPY/POLYPECTOMY Past Anesthesia/Blood Transfusion Reactions: No Reported Reaction, Motion Sickness, Postoperative Nausea & Vomiting (PONV) Past Psychological History: Anxiety, Bipolar, Depression, PTSD, Schizophrenia Smoking Status: Current every day smoker Past Alcohol Use History: None Reported Past Drug Use History: Methamphetamine, Prescription Drug Abuse - Past Family History Father Family Medical History: Liver Disease Additional Family Medical History / Comment(s): Father at age 78 from cirrhosis of the liver. Mother Family Medical History: No Reported History Additional Family Medical History / Comment(s): Mother is alive in her 80s Sister(s) Family Medical History: Coronary Artery Disease (CAD) Additional Family Medical History / Comment(s): Patient has 2 sisters and one has from an overdose. She has 1 brother with no major medical problems. 4cm aortic aneurysm General Exam Limitations: no limitations General appearance: alert, in no apparent distress Head exam: Present: atraumatic, normocephalic, normal inspection Eye exam: Present: normal appearance, PERRL, EOMI. Absent: scleral icterus, conjunctival injection, periorbital swelling ENT exam: Present: normal exam, mucous membranes moist Neck exam: Present: normal inspection, full ROM. Absent: tenderness, meningismus, lymphadenopathy Respiratory exam: Present: normal lung sounds bilaterally. Absent: respiratory distress, wheezes, rales, rhonchi, stridor Cardiovascular Exam: Present: regular rate, normal rhythm, normal heart sounds. Absent: systolic murmur, diastolic murmur, rubs, gallop, clicks Neurological exam: Present: alert Skin exam: Present: warm, dry, intact, normal color. Absent: rash Course Vital Signs 06/08/23 12:00 Temperature 98 F Pulse Rate 92 Respiratory 18 Rate Blood Pressure 112/72 O2 Sat by Pulse 97 Oximetry Medical Decision Making - Medical Decision Making Was pt. sent in by a medical professional or institution (DANNY Thakkar, ATHLETIC AGENT, urgent care, hospital, or senior living...) When possible be specific @ -No Did you speak to anyone other than the patient for history (EMS, parent, family, police, friend...)? What history was obtained from this source @ -No Did you review nursing and triage notes (agree or disagree)? Why? @ -I reviewed and agree with nursing and triage notes Were old charts reviewed (outside hosp., previous admission, EMS record, old EKG, old radiological studies, urgent care reports/EKG's, senior living records)? Report findings @ -No old charts were reviewed Differential Diagnosis (chest pain, altered mental status, abdominal pain women, abdominal pain men, vaginal bleeding, weakness, fever, dyspnea, syncope, headache, dizziness, GI bleed, back pain, seizure, CVA, palpatations, mental health, musculoskeletal)? @ -COVID 19, RSV, influenza, pneumonia, acute bronchitis, URI, this list is not all inclusive EKG interpreted by me (3pts min.). @ -None X-rays interpreted by me (1pt min.). @ -Chest x-ray shows lymphadenopathy, COPD changes CT interpreted by me (1pt min.). @ -None done U/S interpreted by me (1pt. min.). @ -None done What testing was considered but not performed or refused? (CT, X-rays, U/S, labs)? Why? @ -None What meds were considered but not given or refused? Why? @ -None Did you discuss the management of the patient with other professionals (professionals i.e. , PA, ATHLETIC AGENT, lab, RT, psych nurse, social service manager, freezer tunnel operator, teacher, activities officer, telephonic nurse case manager)? Give summary @ -No Was smoking cessation discussed for >3mins.? @ -No Was critical care preformed (if so, how long)? @ -No Were there social determinants of health that impacted care today? How? (Homelessness, low income, unemployed, alcoholism, drug addiction, transportation, low edu. Level, literacy, decrease access to med. care, penitentiary, rehab)? @ -No Was there de-escalation of care discussed even if they declined (Discuss DNR or withdrawal of care, Hospice)? DNR status @ -No What co-morbidities impacted this encounter? (DM, HTN, Smoking, COPD, CAD, Cancer, CVA, ARF, Chemo, Hep., AIDS, mental health diagnosis, sleep apnea, morbid obesity)? @ -None Was patient admitted / discharged? Hospital course, mention meds given and route, prescriptions, significant lab abnormalities, going to OR and other pertinent info. @ -Discharge patient is COVID-19 bother patientis distress with discharged in stable condition with return parameters discussed. Undiagnosed new problem with uncertain prognosis? @ -No Drug Therapy requiring intensive monitoring for toxicity (Heparin, Nitro, Insulin, Cardizem)? @ -No Were any procedures done? @ -No Diagnosis/symptom? @ -COVID-19 Acute, or Chronic, or Acute on Chronic? @ -Acute Uncomplicated (without systemic symptoms) or Complicated (systemic symptoms)? @ -[Uncomplicated Side effects of treatment? @ -No Exacerbation, Progression, or Severe Exacerbation? @ -No Poses a threat to life or bodily function? How? (Chest pain, USA, [place], pneumonia, PE, COPD, DKA, ARF, appy, cholecystitis, CVA, Diverticulitis, Homicidal, Suicidal, threat to staff... and all critical care pts) @ -No - Lab Data Lab Results 06/08/23 Range/Units 12:46 Influenza Type A (PCR) Not Detected (Not Detectd) Influenza Type B (PCR) Not Detected (Not Detectd) RSV (PCR) Not Detected (Not Detectd) SARS-CoV-2 (PCR) Detected A (Not Detectd) Disposition Clinical Impression: COVID-19 Disposition: HOME SELF-CARE Condition: Stable Instructions (If sedation given, give patient instructions): COVID-19 (Coronavirus Disease 2019) (ED) Additional Instructions: Please return to the Emergency Department if symptoms worsen or any other concerns. Is patient prescribed a controlled substance at d/c from ED?: No Referrals: Cecilia Cortez MD [Primary Care Provider] - 1-2 days Time of Disposition: 13:41
--- NOTE | 2023-06-08 13:08 | XR ---
EXAMINATION TYPE: XR chest 2V DATE OF EXAM: 06/08/2023 COMPARISON: 02/08/2023 TECHNIQUE: PA and lateral views submitted. HISTORY: Cough FINDINGS: The lungs are clear and there is no pneumothorax, pleural effusion, or focal pneumonia. Heart size normal and no overt failure. Osseous structures demonstrate hypertrophic and degenerative changes of the spine. Emphysematous changes with diffuse osteopenia. Mild anterior wedge deformity midthoracic s pine appears chronic. Chronic rib cage deformities. There is prominence of the right hilum. IMPRESSION: 1. No acute process. 2. Emphysematous changes. 3. Right hilar prominence. Underlying adenopathy or aortic aneurysm in the differential diagnosis.
== END 2023-06-08 15:05 | disposition home or self-care (01) ==
LOC: EC 11:57
DX: U07.1 COVID-19 (principal); E11.9 Type 2 diabetes mellitus without complications; E78.5 Hyperlipidemia, unspecified; J44.9 Chronic obstructive pulmonary disease, unspecified; Z86.73 Personal history of transient ischemic attack (TIA), and cerebral infarction without residual deficits; F31.9 Bipolar disorder, unspecified; F41.9 Anxiety disorder, unspecified; F17.200 Nicotine dependence, unspecified, uncomplicated; Z79.84 Long term (current) use of oral hypoglycemic drugs; Z79.4 Long term (current) use of insulin; Z79.899 Other long term (current) drug therapy
CPT/HCPCS: 71046; 87636; 99284

== ENCOUNTER 2023-07-27 15:45 | Emergency (ER) | payer OTHER ==
[2023-07-27] MEDS ORDERED: KETOROLAC 15 MG/ML 1 ML VIAL IVP STA (16:36)
--- NOTE | 2023-07-27 17:02 | XR ---
EXAMINATION TYPE: XR Hip LT and AP Pelvis DATE OF EXAM: 07/27/2023 CLINICAL HISTORY: pain TECHNIQUE: AP and frogleg views of the left hip are obtained. Single view pelvis also submitted. COMPARISON: None. FINDINGS: There is no acute fracture/dislocation evident. The joint space appears within normal li mits. The overlying soft tissue appears unremarkable. IMPRESSION: 1. There is no acute fracture or dislocation.ICD 10 NO FRACTURE, INITIAL EVALUATION
--- NOTE | 2023-07-27 17:04 | XR ---
EXAMINATION TYPE: XR lumbosacral spine min 4V DATE OF EXAM: 07/27/2023 CLINICAL HISTORY: pain COMPARISON: 01/12/2023 TECHNIQUE: Frontal, lateral, and oblique images of the lumbar spine are obtained. FINDINGS: Mild loss of height superior endplate of T12 of uncertain age and/or etiology however was n ot present previously. Loss of height is estimated at 20%. There is chronic, mild loss of height invo lving the superior endplate of L2. Remaining lumbar segments are intact. Scattered degenerative disc disease noted. Incidental bilateral nephrolithiasis redemonstrated. IMPRESSION: 1. Superior endplate compression fracture of T12 of uncertain age and/or etiology however is not pres ent on previous examination. 2. Chronic loss of height involving superior endplate of L2.
[2023-07-27] MEDS ORDERED: hydrALAZINE HCL 20 MG/ML 1 ML VIAL IVP STA (17:56)
--- NOTE | 2023-07-27 18:08 | CT ---
EXAMINATION TYPE: CT thor lumbar spine wo con DATE OF EXAM: 07/27/2023 COMPARISON: None HISTORY: back pain after fall CT DLP: 734.7 mGycm Automated exposure control for dose reduction was used. Unenhanced CT of the thoracic spine was perfo rmed in the axial, coronal and sagittal planes. Bone and soft tissue window settings are submitted. FINDINGS: There is acute compression fracture involving superior endplate of T12 with loss of height estimated at 15%. There is surrounding paraspinal hematoma. Minimal bony retropulsion identified measuring 3 mm . There may be minimal loss of height involving superior endplate of T11 and T10. Schmorl's nodes are noted at T9, T10 and T11 superior endplates. Chronic loss of height noted to involve T7. There is al so chronic mild loss of height involving L2. Moderate to severe multilevel degenerative disc disease noted. No evidence for disc herniation or central stenosis. Incidental changes of chronic pancreatitis. Nonobstructing calculus lower pole right kidney. Renal cy stic changes right kidney. IMPRESSION: 1. acute compression fracture involving superior endplate of T8 and T12 as discussed above and minima l bony retropulsion or paraspinal hematoma noted. There may also be minimal loss of height involving superior endplates of T11 and T10.
[2023-07-27] MEDS ORDERED: NITROGLYCERIN SL TABS 0.4 MG TAB SUBLINGUAL PRN (18:36)
[2023-07-27 19:11] VITALS: RESP 18
--- NOTE | 2023-07-27 19:33 | ED ---
General Adult HPI - General Chief complaint: Fall Stated complaint: back pain Time Seen by Provider: 07/27/23 15:50 Source: patient, EMS, RN notes reviewed, old records reviewed Mode of arrival: EMS Limitations: no limitations - History of Present Illness Initial comments: This is a 63-year-old female who comes to the emergency department complaining of left hip and lower back pain. Patient states she fell down the steps a few days ago and the pain is still there so she wanted to come in to be evaluated. Patient denies any neck pain. Patient states she did hit her head but she has no headache and no confusion and no other problems. Patient denies any extremity pain. Patient has any abdominal pain. Patient Nuys any upper back pain. - Related Data Home Medications Medication Instructions Recorded Confirmed Ergocalciferol (Vitamin D2) 1,250 mcg PO WE@0800 10/04/22 10/27/22 [Drisdol (50,000 Iu)] Insulin Glargine,Hum.rec.anlog 16 units SQ HS@209910/04/22 10/27/22 [Lantus Solostar Pen] Lipase/Protease/Amylase [Zenpep Dr 2 cap PO TID@0800,1700,209910/04/22 10/27/22 5,000 Unit Capsule] metFORMIN HCL ER [Glucophage XR] 1,000 mg PO BID@0800,1700 10/04/22 10/27/22 sitaGLIPtin [Januvia] 100 mg PO DAILY@0800 10/04/22 10/27/22 OLANZapine [ZyPREXA] 5 mg PO HS@209910/18/22 10/27/22 clonazePAM [KlonoPIN] 1 mg PO TID@0800,1600,209910/18/22 10/27/22 glipiZIDE XL [Glucotrol XL] 20 mg PO W/BRKFST 10/18/22 10/27/22 hydrOXYzine pamoate [Vistaril] 100 mg PO HS@199910/18/22 10/27/22 lamoTRIgine 200 mg PO DAILY@0800 10/18/22 10/27/22 Previous Rx's Medication Instructions Recorded ARIPiprazole IM SYRINGE [Abilify 400 mg IM Q28D #1 each 10/11/22 Maintena Syringe] Albuterol Inhaler [Ventolin Hfa 2 puff INHALATION RT-QID PRN each 10/11/22 Inhaler] Nicotine Gum (Polacrilex) 2 mg BUCCAL Q2HR PRN 30 Days #360 10/11/22 [Nicorette] pieceofgum Divalproex ER [Depakote ER] 500 mg PO HS #30 tab 10/20/22 Aspirin EC [Ecotrin Low Dose] 81 mg PO DAILY #30 tab 10/28/22 Pantoprazole Sodium [Protonix] 40 mg PO DAILY #30 tab 10/28/22 Ibuprofen [Motrin] 600 mg PO Q8HR PRN #20 tab 01/12/23 Lidocaine 5% Patch [Lidoderm 5% 1 patch TOPICAL DAILY #7 patch 01/12/23 Patch] Ketorolac [Toradol] 10 mg PO Q6HR #15 tab 07/27/23 Allergies Allergy/AdvReac Type Severity Reaction Status Date / Time No Known Allergies Allergy Verified 06/08/23 12:03 Review of Systems ROS Statement: Those systems with pertinent positive or pertinent negative responses have been documented in the HPI. ROS Other: All systems not noted in ROS Statement are negative. 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 6, chronic bronchitis recent fall with 7 left rib fractures, hematoma to right forehead in past, History of Any Multi-Drug Resistant Organisms: MRSA Date of last positivie culture/infection: 10/20/21 MDRO Source:: Head Past Surgical History: Appendectomy Additional Past Surgical History / Comment(s): CYST REMOVED FROM NECK, RT 3RD/4TH FINGER PARTIAL AMP D/T INJURY, lt ureter stent, COLONOSCOPY/POLYPECTOMY Past Anesthesia/Blood Transfusion Reactions: No Reported Reaction, Motion Sickness, Postoperative Nausea & Vomiting (PONV) Past Psychological History: Anxiety, Bipolar, Depression, PTSD, Schizophrenia Smoking Status: Current every day smoker Past Alcohol Use History: None Reported Past Drug Use History: Methamphetamine, Prescription Drug Abuse - Past Family History Father Family Medical History: Liver Disease Additional Family Medical History / Comment(s): Father at age 78 from cirrhosis of the liver. Mother Family Medical History: No Reported History Additional Family Medical History / Comment(s): Mother is alive in her 80s Sister(s) Family Medical History: Coronary Artery Disease (CAD) Additional Family Medical History / Comment(s): Patient has 2 sisters and one has from an overdose. She has 1 brother with no major medical problems. 4cm aortic aneurysm General Exam - General Exam Comments Initial Comments: GENERAL: Patient is well-developed and well-nourished. Patient is nontoxic and well- hydrated and is in mild distress. ENT: Neck is soft and supple. No significant lymphadenopathy is noted. Oropharynx is clear. Moist mucous membranes. Neck has full range of motion without eliciting any pain. EYES: The sclera were anicteric and conjunctiva were pink and moist. Extraocular movements were intact and pupils were equal round and reactive to light. Eyel ids were unremarkable. PULMONARY: Unlabored respirations. Good breath sounds bilaterally. No audible rales rhonchi or wheezing was noted. CARDIOVASCULAR: There is a regular rate and rhythm without any murmurs gallops or rubs. ABDOMEN: Soft and nontender with normal bowel sounds. SKIN: Skin is clear with no lesions or rashes and otherwise unremarkable. NEUROLOGIC: Patient is alert and oriented x3. Cranial nerves II through XII are grossly intact. Motor and sensory are also intact. Normal speech, volume and content. Symmetrical smile. MUSCULOSKELETAL: Normal extremities with adequate strength and full range of motion. Patient has some tenderness in the lower thoracic spine region LYMPHATICS: No significant lymphadenopathy is noted PSYCHIATRIC: Normal psychiatric evaluation. Limitations: no limitations Course Vital Signs 07/27/23 07/27/23 07/27/23 15:50 17:55 19:06 Temperature 97.8 F Pulse Rate 103 H 97 97 Respiratory 18 20 18 Rate Blood Pressure 192/116 164/99 163/98 O2 Sat by Pulse 99 100 97 Oximetry Medical Decision Making - Medical Decision Making Was pt. sent in by a medical professional or institution (, PA, CLOTH NAPPING SUPERVISOR, urgent care, hospital, or retirement...) When possible be specific @ -[No] Did you speak to anyone other than the patient for history (EMS, parent, family, police, friend...)? What history was obtained from this source @ -[No] Did you review nursing and triage notes (agree or disagree)? Why? @ -[I reviewed and agree with nursing and triage notes] Were old charts reviewed (outside hosp., previous admission, EMS record, old EKG, old radiological studies, urgent care reports/EKG's, retirement records)? Report findings @ -[No old charts were reviewed] Differential Diagnosis (chest pain, altered mental status, abdominal pain women, abdominal pain men, vaginal bleeding, weakness, fever, dyspnea, syncope, headache, dizziness, GI bleed, back pain, seizure, CVA, palpatations, mental health, musculoskeletal)? @ -Musculoskeletal Muscular strain, contusion, ligament sprain, fracture, arthritis, septic arthritis, bursitis, cellulitis, muscle spasm, nerve compression, DVT, arterial occlusion, herpes zoster, electrolyte abnormality, tumor.... This is not meant to be in all inclusive list EKG interpreted by me (3pts min.). @ -[As above] X-rays interpreted by me (1pt min.). @ -X-ray shows compression fracture of T12 CT interpreted by me (1pt min.). @ -Patient has a T8 and T12 endplate compression fracture with minimal retropulsion. U/S interpreted by me (1pt. min.). @ -[None done] What testing was considered but not performed or refused? (CT, X-rays, U/S, labs)? Why? @ -[None] What meds were considered but not given or refused? Why? @ -[None] Did you discuss the management of the patient with other professionals (professionals i.e. , PA, CLOTH NAPPING SUPERVISOR, lab, RT, psych nurse, sr. social media & mobile manager, production finisher, teacher, child support officer, family independence case manager)? Give summary @ -[No] Was smoking cessation discussed for >3mins.? @ -[No] Was critical care preformed (if so, how long)? @ -[No] Were there social determinants of health that impacted care today? How? (Homelessness, low income, unemployed, alcoholism, drug addiction, transportation, low edu. Level, literacy, decrease access to med. care, [facility], rehab)? @ -[No] Was there de-escalation of care discussed even if they declined (Discuss DNR or withdrawal of care, Hospice)? DNR status @ -[No] What co-morbidities impacted this encounter? (DM, HTN, Smoking, COPD, CAD, Cancer, CVA, ARF, Chemo, Hep., AIDS, mental health diagnosis, sleep apnea, morbid obesity)? @ -[None] Was patient admitted / discharged? Hospital course, mention meds given and route, prescriptions, significant lab abnormalities, going to OR and other pertinent info. @ -Patient stated the Toradol took her pain away and she like to go home with some Toradol. Undiagnosed new problem with uncertain prognosis? @ -[No] Drug Therapy requiring intensive monitoring for toxicity (Heparin, Nitro, Insulin, Cardizem)? @ -[No] Were any procedures done? @ -[No] Diagnosis/symptom? @ -Vertebral compression fracture Acute, or Chronic, or Acute on Chronic? @ -Acute Uncomplicated (without systemic symptoms) or Complicated (systemic symptoms)? @ -Complicated Side effects of treatment? @ -[No] Exacerbation, Progression, or Severe Exacerbation? @ -[No] Poses a threat to life or bodily function? How? (Chest pain, USA, [place], pneumonia, PE, COPD, DKA, ARF, appy, cholecystitis, CVA, Diverticulitis, Homicidal, Suicidal, threat to staff... and all critical care pts) @ -[No] Disposition Clinical Impression: Fall, Vertebral compression fracture Disposition: HOME SELF-CARE Instructions (If sedation given, give patient instructions): Fall Prevention for Older Adults (ED), Vertebral Compression Fracture (ED) Prescriptions: Ketorolac [Toradol] 10 mg PO Q6HR #15 tab Is patient prescribed a controlled substance at d/c from ED?: No Referrals: Cecilia Cortez MD [Primary Care Provider] - 1-2 days Time of Disposition: 19:33
[2023-07-27 20:02] VITALS: BP 128/83; PULSE 99; TEMP 98.2
[2023-07-28] MEDS ORDERED: ASPIRIN 325 MG TAB PO SCH (09:00)
== END 2023-07-27 19:50 | disposition home or self-care (01) ==
LOC: EC 15:45
DX: S22.060A Wedge compression fracture of T7-T8 vertebra, initial encounter for closed fracture (principal); S22.080A Wedge compression fracture of T11-T12 vertebra, initial encounter for closed fracture; J44.9 Chronic obstructive pulmonary disease, unspecified; E11.9 Type 2 diabetes mellitus without complications; F41.9 Anxiety disorder, unspecified; F17.200 Nicotine dependence, unspecified, uncomplicated; F31.9 Bipolar disorder, unspecified; F15.90 Other stimulant use, unspecified, uncomplicated; Z79.4 Long term (current) use of insulin; Z79.84 Long term (current) use of oral hypoglycemic drugs; Z79.899 Other long term (current) drug therapy; W10.9XXA Fall (on) (from) unspecified stairs and steps, initial encounter
CPT/HCPCS: 99285; 96374; 96375; 72110; 73502; 72128; 72131; J0360; J1885

== ENCOUNTER 2023-08-03 17:47 | Emergency (ER) | payer OTHER ==
[2023-08-03 18:22] VITALS: BP 143/91; PULSE 81; RESP 20; TEMP 98.4
[2023-08-03] MEDS: HYDROmorphone 1 MG/ML 1 ML SYRINGE IM STA (18:25)
[2023-08-03] MEDS: KETOROLAC 15 MG/ML 1 ML VIAL IM STA (18:25)
--- NOTE | 2023-08-03 18:50 | ED ---
Back Pain HPI - General Chief Complaint: Back Pain/Injury Stated Complaint: lower back pain Time Seen by Provider: 08/03/23 18:15 Source: patient, RN notes reviewed, old records reviewed Limitations: no limitations - History of Present Illness Initial Comments: Patient is a 63-year-old female presenting to ER with chief complaint of back pain. Patient states she was recently seen here and diagnosed with multiple compression fractures. Discharged with Toradol. She states Toradol has not been helping her pain recently. Patient endorses lumbar spine pain. Denies any bowel or bladder incontinence, fevers, history of IV drug use, saddle paresthesias. Patient states she sometimes gets radiating pain down her legs denies any weakness. Patient has an appointment with orthopedics later this month. Denies any headaches, neck pain, upper extremity weakness or paresthesias. Chest pain, shortness of breath, abdominal pain, urinary complaints, constipation/diarrhea, peripheral edema. - Related Data Home Medications Medication Instructions Recorded Confirmed Ergocalciferol (Vitamin D2) 1,250 mcg PO WE@0800 10/04/22 10/27/22 [Drisdol (50,000 Iu)] Insulin Glargine,Hum.rec.anlog 16 units SQ HS@209910/04/22 10/27/22 [Lantus Solostar Pen] Lipase/Protease/Amylase [Zenpep Dr 2 cap PO TID@0800,1700,209910/04/22 10/27/22 5,000 Unit Capsule] metFORMIN HCL ER [Glucophage XR] 1,000 mg PO BID@0800,1700 10/04/22 10/27/22 sitaGLIPtin [Januvia] 100 mg PO DAILY@0800 10/04/22 10/27/22 OLANZapine [ZyPREXA] 5 mg PO HS@209910/18/22 10/27/22 clonazePAM [KlonoPIN] 1 mg PO TID@0800,1600,209910/18/22 10/27/22 glipiZIDE XL [Glucotrol XL] 20 mg PO W/BRKFST 10/18/22 10/27/22 hydrOXYzine pamoate [Vistaril] 100 mg PO HS@199910/18/22 10/27/22 lamoTRIgine 200 mg PO DAILY@0800 10/18/22 10/27/22 Previous Rx's Medication Instructions Recorded ARIPiprazole IM SYRINGE [Abilify 400 mg IM Q28D #1 each 10/11/22 Maintena Syringe] Albuterol Inhaler [Ventolin Hfa 2 puff INHALATION RT-QID PRN each 10/11/22 Inhaler] Nicotine Gum (Polacrilex) 2 mg BUCCAL Q2HR PRN 30 Days #360 10/11/22 [Nicorette] pieceofgum Divalproex ER [Depakote ER] 500 mg PO HS #30 tab 10/20/22 Aspirin EC [Ecotrin Low Dose] 81 mg PO DAILY #30 tab 10/28/22 Pantoprazole Sodium [Protonix] 40 mg PO DAILY #30 tab 10/28/22 Ibuprofen [Motrin] 600 mg PO Q8HR PRN #20 tab 01/12/23 Lidocaine 5% Patch [Lidoderm 5% 1 patch TOPICAL DAILY #7 patch 01/12/23 Patch] Ketorolac [Toradol] 10 mg PO Q6HR #15 tab 07/27/23 Ketorolac [Toradol] 10 mg PO Q8HR #15 tab 08/03/23 Allergies Allergy/AdvReac Type Severity Reaction Status Date / Time No Known Allergies Allergy Verified 08/03/23 17:54 Review of Systems ROS Statement: Those systems with pertinent positive or pertinent negative responses have been documented in the HPI. ROS Other: All systems not noted in ROS Statement are negative. 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 6, chronic bronchitis recent fall with 7 left rib fractures, hematoma to right forehead in past, History of Any Multi-Drug Resistant Organisms: MRSA Date of last positivie culture/infection: 10/20/21 MDRO Source:: Head Past Surgical History: Appendectomy Additional Past Surgical History / Comment(s): CYST REMOVED FROM NECK, RT 3RD/4TH FINGER PARTIAL AMP D/T INJURY, lt ureter stent, COLONOSCOPY/POLYPECTOMY Past Anesthesia/Blood Transfusion Reactions: No Reported Reaction, Motion Sickne ss, Postoperative Nausea & Vomiting (PONV) Past Psychological History: Anxiety, Bipolar, Depression, PTSD, Schizophrenia Smoking Status: Current every day smoker Past Alcohol Use History: None Reported Past Drug Use History: Methamphetamine, Prescription Drug Abuse - Past Family History Father Family Medical History: Liver Disease Additional Family Medical History / Comment(s): Father at age 78 from cirrhosis of the liver. Mother Family Medical History: No Reported History Additional Family Medical History / Comment(s): Mother is alive in her 80s Sister(s) Family Medical History: Coronary Artery Disease (CAD) Additional Family Medical History / Comment(s): Patient has 2 sisters and one has from an overdose. She has 1 brother with no major medical problems. 4cm aortic aneurysm General Exam Limitations: no limitations General appearance: alert, in no apparent distress Head exam: Present: atraumatic, normocephalic, normal inspection Eye exam: Present: normal appearance, PERRL, EOMI. Absent: scleral icterus, conjunctival injection, periorbital swelling Neck exam: Present: normal inspection. Absent: tenderness, meningismus, lymphadenopathy Respiratory exam: Present: normal lung sounds bilaterally. Absent: respiratory distress, wheezes, rales, rhonchi, stridor Cardiovascular Exam: Present: regular rate, normal rhythm, normal heart sounds. Absent: systolic murmur, diastolic murmur, rubs, gallop, clicks Back exam: Present: normal inspection, tenderness (Mild tenderness to the lumbar spine and pelvic girdle), other (Right straight leg raise positive for back pain) Neurological exam: Present: alert, oriented X3, CN II-XII intact Psychiatric exam: Present: normal affect, normal mood Skin exam: Present: warm, dry, intact, normal color. Absent: rash Course Vital Signs 08/03/23 17:52 Temperature 98.4 F Pulse Rate 81 Respiratory 20 Rate Blood Pressure 143/91 O2 Sat by Pulse 99 Oximetry Medical Decision Making - Medical Decision Making Was pt. sent in by a medical professional or institution (, PA, PHYSICAL INTEGRATION PRACTITIONER, urgent care, hospital, or shelter...) When possible be specific @ -No Did you speak to anyone other than the patient for history (EMS, parent, family, police, friend...)? What history was obtained from this source @ -No Did you review nursing and triage notes (agree or disagree)? Why? @ -I reviewed and agree with nursing and triage notes Were old charts reviewed (outside hosp., previous admission, EMS record, old EKG, old radiological studies, urgent care reports/EKG's, shelter records)? Report findings @ -Yes I reviewed old charts from 07-27-2023 where patient underwent thoracic and lumbar CT for back pain. Patient found to have multiple vertebral compression fractures. Patient discharged with prescription of Toradol. Differential Diagnosis (chest pain, altered mental status, abdominal pain women, abdominal pain men, vaginal bleeding, weakness, fever, dyspnea, syncope, headache, dizziness, GI bleed, back pain, seizure, CVA, palpatations, mental health, musculoskeletal)? @ -Differential Back Pain: Strain, zoster, cauda equina syndrome, epidural abscess, vertebral osteomyelitis, discitis, fracture, subluxation, disc herniation, DJD, spinal stenosis, dissection, AAA, pancreatitis, peptic ulcer disease, pyelonephritis, kidney stone, this is not meant to be an all-inclusive list. EKG interpreted by me (3pts min.). @ -None X-rays interpreted by me (1pt min.). @ -None done CT interpreted by me (1pt min.). @ -None done U/S interpreted by me (1pt. min.). @ -None done What testing was considered but not performed or refused? (CT, X-rays, U/S, labs)? Why? @ -CT was considered but not performed due to no red flag symptoms indicative of cauda equina. What meds were considered but not given or refused? Why? @ -None Did you discuss the management of the patient with other professionals (professionals i.e. , PA, PHYSICAL INTEGRATION PRACTITIONER, lab, RT, psych nurse, rn social work, audio engineer, teacher, bomb squad officer, family caseworker)? Give summary @ -No Was smoking cessation discussed for >3mins.? @ -I discussed smoking cessation for greater than 3 minutes. The risk of smoking were discussed with the patient including but not limited to risks of cancer, stroke, coronary artery disease and COPD. Also discussed with patient were multiple methods of quitting smoking. Lastly we discussed the financial cost of smoking. Was critical care preformed (if so, how long)? @ -No Were there social determinants of health that impacted care today? How? (Homelessness, low income, unemployed, alcoholism, drug addiction, transportation, low edu. Level, literacy, decrease access to med. care, fdc, rehab)? @ -No Was there de-escalation of care discussed even if they declined (Discuss DNR or withdrawal of care, Hospice)? DNR status @ -No What co-morbidities impacted this encounter? (DM, HTN, Smoking, COPD, CAD, Cancer, CVA, ARF, Chemo, Hep., AIDS, mental health diagnosis, sleep apnea, morbid obesity)? @ -Smoker Was patient admitted / discharged? Hospital course, mention meds given and route, prescriptions, significant lab abnormalities, going to OR and other pertinent info. @ -Discharge. Patient is a 63-year-old female presented to the ER with chief complaint of back pain. Vitals stable. History and physical exam are completed . Patient was mildly tender to lumbar spine and pelvic girdle. No red flag back pain symptoms indicative of cauda equina. Patient in no signs of acute distress. Patient had bilateral lower extremity strength equal and bilateral lower extremities neurovascularly intact. CT was considered but not performed due to no red flag symptoms indicative cauda equina. Patient received IM Dilaudid with improvement of symptoms. Patient prescribed Toradol. I discussed smoking cessation for greater than 3 minutes. The risk of smoking were discussed with the patient including but not limited to risks of cancer, stroke, coronary artery disease and COPD. Also discussed with patient were multiple methods of quitting smoking. Lastly we discussed the financial cost of smoking. Patient has orthopedic appointment scheduled for later this month. I advised her to follow-up with them as scheduled. Return parameters were discussed. Patient be discharged in condition with follow-up to orthopedics. Patient expressed understanding and agreement with care plan. Undiagnosed new problem with uncertain prognosis? @ -No Drug Therapy requiring intensive monitoring for toxicity (Heparin, Nitro, Insulin, Cardizem)? @ -No Were any procedures done? @ -No Diagnosis/symptom? @ -Vertebral compression fractures Acute, or Chronic, or Acute on Chronic? @ -Acute Uncomplicated (without systemic symptoms) or Complicated (systemic symptoms)? @ -Uncomplicated Side effects of treatment? @ -No Exacerbation, Progression, or Severe Exacerbation? @ -No Poses a threat to life or bodily function? How? (Chest pain, [place], [place], pneumonia, PE, COPD, DKA, ARF, appy, cholecystitis, CVA, Diverticulitis, Homicidal, Suicidal, threat to staff... and all critical care pts) @ -No Disposition Clinical Impression: Vertebral compression fracture Disposition: HOME SELF-CARE Condition: Stable Instructions (If sedation given, give patient instructions): Chronic Back Pain (DC) Additional Instructions: Please follow-up with orthopedics as scheduled. Return to the ER for any new or worsening symptoms. Prescriptions: Ketorolac [Toradol] 10 mg PO Q8HR #15 tab Is patient prescribed a controlled substance at d/c from ED?: No Referrals: Cecilia Cortez MD [Primary Care Provider] - 1-2 days Time of Disposition: 18:50
== END 2023-08-03 19:09 | disposition home or self-care (01) ==
LOC: EC 17:47
DX: S32.000A Wedge compression fracture of unspecified lumbar vertebra, initial encounter for closed fracture (principal); J44.9 Chronic obstructive pulmonary disease, unspecified; E11.9 Type 2 diabetes mellitus without complications; K21.9 Gastro-esophageal reflux disease without esophagitis; F41.9 Anxiety disorder, unspecified; F31.9 Bipolar disorder, unspecified; Z79.84 Long term (current) use of oral hypoglycemic drugs; Z79.899 Other long term (current) drug therapy; Z79.4 Long term (current) use of insulin; X58.XXXA Exposure to other specified factors, initial encounter
CPT/HCPCS: 99283; 96372; 99406; J1170

== ENCOUNTER 2023-08-08 17:28 | Emergency (ER) | payer OTHER ==
[2023-08-08 17:45] VITALS: BP 131/78; PULSE 81; RESP 18; TEMP 98.1
--- NOTE | 2023-08-08 18:23 | ED ---
Fall HPI - General Source: patient, RN notes reviewed Mode of arrival: ambulatory Limitations: no limitations - History of Present Illness MD Complaint: fall <Bella Abrams - Last Filed: 08/08/23 18:21> <Pati Martins - Last Filed: 08/08/23 20:49> - General Chief Complaint: Fall Stated Complaint: Fall w/left elbow pain Time Seen by Provider: 08/08/23 18:22 - History of Present Illness Initial Comments: This is a 64-year-old female who presents to the emergency department for left elbow pain. Patient tripped and fell this evening, landing on her left elbow. She has since had increasing pain to this area. Denies hitting her head or sustaining any other injuries. She is not taking any blood thinners. (Bella Abrams) Patient is a 63-year-old female presented to the ER with a chief complaint of a fall. Patient states she tripped on a curb and fell landing on her left elbow. Patient states this happened about 45 minutes prior to arrival in the ER. Patient states any movement is painful. Patient does endorse a tingling sensation in her fingers. She does state that she took a Toradol prior to arrival in the ER. Patient denies any head injury, loss of consciousness, blood thinner use, dizziness, lightheadedness, chest pain, shortness of breath prior to the event. (Pati Martins) - Related Data Home Medications Medication Instructions Recorded Confirmed Ergocalciferol (Vitamin D2) 1,250 mcg PO WE@0800 10/04/22 10/27/22 [Drisdol (50,000 Iu)] Insulin Glargine,Hum.rec.anlog 16 units SQ HS@209910/04/22 10/27/22 [Lantus Solostar Pen] Lipase/Protease/Amylase [Zenpep Dr 2 cap PO TID@0800,1700,209910/04/22 10/27/22 5,000 Unit Capsule] metFORMIN HCL ER [Glucophage XR] 1,000 mg PO BID@0800,1700 10/04/22 10/27/22 sitaGLIPtin [Januvia] 100 mg PO DAILY@0800 10/04/22 10/27/22 OLANZapine [ZyPREXA] 5 mg PO HS@209910/18/22 10/27/22 clonazePAM [KlonoPIN] 1 mg PO TID@0800,1600,2100 10/18/22 10/27/22 glipiZIDE XL [Glucotrol XL] 20 mg PO W/BRKFST 10/18/22 10/27/22 hydrOXYzine pamoate [Vistaril] 100 mg PO HS@199910/18/22 10/27/22 lamoTRIgine 200 mg PO DAILY@0800 10/18/22 10/27/22 Previous Rx's Medication Instructions Recorded ARIPiprazole IM SYRINGE [Abilify 400 mg IM Q28D #1 each 10/11/22 Maintena Syringe] Albuterol Inhaler [Ventolin Hfa 2 puff INHALATION RT-QID PRN each 10/11/22 Inhaler] Nicotine Gum (Polacrilex) 2 mg BUCCAL Q2HR PRN 30 Days #360 10/11/22 [Nicorette] pieceofgum Divalproex ER [Depakote ER] 500 mg PO HS #30 tab 10/20/22 Aspirin EC [Ecotrin Low Dose] 81 mg PO DAILY #30 tab 10/28/22 Pantoprazole Sodium [Protonix] 40 mg PO DAILY #30 tab 10/28/22 Ibuprofen [Motrin] 600 mg PO Q8HR PRN #20 tab 01/12/23 Lidocaine 5% Patch [Lidoderm 5% 1 patch TOPICAL DAILY #7 patch 01/12/23 Patch] Ketorolac [Toradol] 10 mg PO Q6HR #15 tab 07/27/23 Ketorolac [Toradol] 10 mg PO Q8HR #15 tab 08/03/23 Allergies Allergy/AdvReac Type Severity Reaction Status Date / Time No Known Allergies Allergy Verified 08/08/23 17:40 Review of Systems ROS Other: All systems not noted in ROS Statement are negative. <Bella Abrams - Last Filed: 08/08/23 18:21> ROS Other: All systems not noted in ROS Statement are negative. <Pati Martins - Last Filed: 08/08/23 20:49> ROS Statement: Those systems with pertinent positive or pertinent negative responses have been documented in the HPI. 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 6, chronic bronchitis recent fall with 7 left rib fractures, hematoma to right forehead in past, History of Any Multi-Drug Resistant Organisms: MRSA Date of last positivie culture/infection: 10/20/21 MDRO Source:: Head Past Surgical History: Appendectomy Additional Past Surgical History / Comment(s): CYST REMOVED FROM NECK, RT 3RD/4TH FINGER PARTIAL AMP D/T INJURY, lt ureter stent, COLONOSCOPY/POLYPECTOMY Past Anesthesia/Blood Transfusion Reactions: No Reported Reaction, Motion Sickness, Postoperative Nausea & Vomiting (PONV) Past Psychological History: Anxiety, Bipolar, Depression, PTSD, Schizophrenia Smoking Status: Vaper Past Alcohol Use History: None Reported Past Drug Use History: Marijuana, Methamphetamine, Prescription Drug Abuse - Past Family History Father Family Medical History: Liver Disease Additional Family Medical History / Comment(s): Father at age 78 from cirrhosis of the liver. Mother Family Medical History: No Reported History Additional Family Medical History / Comment(s): Mother is alive in her 80s Sister(s) Family Medical History: Coronary Artery Disease (CAD) Additional Family Medical History / Comment(s): Patient has 2 sisters and one has from an overdose. She has 1 brother with no major medical problems. 4cm aortic aneurysm <Bella Abrams - Last Filed: 08/08/23 18:21> General Exam Limitations: no limitations <Bella Abrams - Last Filed: 08/08/23 18:21> General appearance: alert, in no apparent distress Head exam: Present: atraumatic, normocephalic, normal inspection Eye exam: Present: normal appearance, PERRL, EOMI. Absent: scleral icterus, conjunctival injection, periorbital swelling Neck exam: Present: normal inspection. Absent: tenderness, meningismus, lymphadenopathy Respiratory exam: Present: normal lung sounds bilaterally. Absent: respiratory distress, wheezes, rales, rhonchi, stridor Cardiovascular Exam: Present: regular rate, normal rhythm, normal heart sounds. Absent: systolic murmur, diastolic murmur, rubs, gallop, clicks Extremities exam: Present: other (Swelling to left elbow. Decreased active range of motion due to pain. 2+ left radial pulse. Sensation intact.) Neurological exam: Present: alert, oriented X3, CN II-XII intact Psychiatric exam: Present: normal affect, normal mood Skin exam: Present: warm, dry, intact, normal color. Absent: rash <Pati Martins - Last Filed: 08/08/23 20:49> - General Exam Comments Initial Comments: Visual Physical Exam Vital signs reviewed General: Well-appearing, nontoxic, no acute distress. Head: Normocephalic, atraumatic Eyes: PERRLA, EOMI ENT: Airway patent Chest: Nonlabored breathing Skin: No visual rash, normal skin tone Neuro: Alert and oriented 3 Musculoskeletal: No gross abnormalities (Bella Abrams) Course Vital Signs 08/08/23 17:32 Temperature 98.1 F Pulse Rate 81 Respiratory 18 Rate Blood Pressure 131/78 O2 Sat by Pulse 99 Oximetry Procedures - Orthopedic Splinting/Casting Injury #1 Side: left Upper Extremity Injury Location: elbow Upper Extremity Immobilizer: posterior splint <Pati Martins - Last Filed: 08/08/23 20:49> Medical Decision Making <Bella Abrams - Last Filed: 08/08/23 18:21> - Radiology Data Radiology results: report reviewed, image reviewed <Pati Martins - Last Filed: 08/08/23 20:49> - Medical Decision Making I performed the QuickNote portion of this chart. Signed Bella Abrams PA-C. (Bella Abrams) Was pt. sent in by a medical professional or institution (DANNY Thakkar, [facility], urgent care, hospital, or half-way...) When possible be specific @ -No Did you speak to anyone other than the patient for history (EMS, parent, family, police, friend...)? What history was obtained from this source @ -No Did you review nursing and triage notes (agree or disagree)? Why? @ -I reviewed and agree with nursing and triage notes Were old charts reviewed (outside hosp., previous admission, EMS record, old EKG, old radiological studies, urgent care reports/EKG's, half-way records)? Report findings @ -No old charts were reviewed Differential Diagnosis (chest pain, altered mental status, abdominal pain women, abdominal pain men, vaginal bleeding, weakness, fever, dyspnea, syncope, headache, dizziness, GI bleed, back pain, seizure, CVA, palpatations, mental health, musculoskeletal)? @ -Differential Musculoskeletal Muscular strain, contusion, ligament sprain, fracture, arthritis, septic arthritis, bursitis, cellulitis, muscle spasm, nerve compression, DVT, arterial occlusion, herpes zoster, electrolyte abnormality, tumor.... This is not meant to be in all inclusive list EKG interpreted by me (3pts min.). @ -[None X-rays interpreted by me (1pt min.). @ -Left elbow x-ray shows an anterior fat pad sign suggesting joint effusion possibly to an underlying occult fracture. CT interpreted by me (1pt min.). @ -None done U/S interpreted by me (1pt. min.). @ -None done What testing was considered but not performed or refused? (CT, X-rays, U/S, labs)? Why? @ -CT brain was considered but not performed due to no head injury, loss of consciousness, blood thinner use. What meds were considered but not given or refused? Why? @ -None Did you discuss the management of the patient with other professionals (professionals i.e. , PA, R[facility] LATHER, lab, RT, psych nurse, clinical social work therapist, criminal justice lawyer, teacher, radio division officer, watch case polisher)? Give summary @ -No Was smoking cessation discussed for >3mins.? @ -I discussed smoking cessation for greater than 3 minutes. The risk of smoking were discussed with the patient including but not limited to risks of cancer, stroke, coronary artery disease and COPD. Also discussed with patient were multiple methods of quitting smoking. Lastly we discussed the financial cost of smoking. Was critical care preformed (if so, how long)? @ -No Were there social determinants of health that impacted care today? How? (Homelessness, low income, unemployed, alcoholism, drug addiction, transporta tion, low edu. Level, literacy, decrease access to med. care, senior care, rehab)? @ -No Was there de-escalation of care discussed even if they declined (Discuss DNR or withdrawal of care, Hospice)? DNR status @ -No What co-morbidities impacted this encounter? (DM, HTN, Smoking, COPD, CAD, Cancer, CVA, ARF, Chemo, Hep., AIDS, mental health diagnosis, sleep apnea, morbid obesity)? @ -None Was patient admitted / discharged? Hospital course, mention meds given and route, prescriptions, significant lab abnormalities, going to OR and other pertinent info. @ -Discharge. Patient is a 63-year-old female presented to the ER with a chief complaint of left elbow injury. History and physical exam were completed. Vital stable. Patient in no signs of acute distress. Patient's left upper extremity was neurovascularly intact. No acute neurological findings on exam. No anatomical snuffbox tenderness or other point tenderness on exam. X-ray of left elbow shows an anterior fat pad sign suggesting joint effusion possibly an underlying occult fracture. Patient placed in a posterior splint. I advised her to follow-up with orthopedics in the next 1 to 2 days. Patient received IM Toradol for pain control. I discussed smoking cessation for greater than 3 minutes. The risk of smoking were discussed with the patient including but not limited to risks of cancer, stroke, coronary artery disease and COPD. Also discussed with patient were multiple methods of quitting smoking. Lastly we discussed the financial cost of smoking. Return parameters were discussed. Patient discharged stable condition with follow-up to orthopedics. Patient expressed understanding and agreement with care plan. Undiagnosed new problem with uncertain prognosis? @ -No Drug Therapy requiring intensive monitoring for toxicity (Heparin, Nitro, Insulin, Cardizem)? @ -No Were any procedures done? @ -Yes Diagnosis/symptom? @ -Occult elbow fracture Acute, or Chronic, or Acute on Chronic? @ -Acute Uncomplicated (without systemic symptoms) or Complicated (systemic symptoms)? @ -Uncomplicated Side effects of treatment? @ -No Exacerbation, Progression, or Severe Exacerbation? @ -No Poses a threat to life or bodily function? How? (Chest pain, [place], [place], pneumonia, PE, COPD, DKA, ARF, appy, cholecystitis, CVA, Diverticulitis, Homicidal, Suicidal, threat to staff... and all critical care pts) @ -No (Pati Martins) Disposition <Bella Abrams - Last Filed: 08/08/23 18:21> Is patient prescribed a controlled substance at d/c from ED?: No Time of Disposition: 18:58 <Pati Martins - Last Filed: 08/08/23 20:49> Clinical Impression: Elbow injury Disposition: HOME SELF-CARE Condition: Stable Instructions (If sedation given, give patient instructions): Fall Prevention (ED) Additional Instructions: Please follow-up with orthopedics in the next 1 to 2 days. Return to the ER for any new or worsening symptoms. Referrals: Cecilia Cortez MD [Primary Care Provider] - 1-2 days Jc Bates DO [Doctor of Osteopathic Medicine] - 1-2 days
--- NOTE | 2023-08-08 18:38 | XR ---
EXAMINATION TYPE: XR elbow complete LT DATE OF EXAM: 08/08/2023 6:16 PM CLINICAL INDICATION:Female, 63 years old with history of Pain after fall; [facility] COMPARISON: None TECHNIQUE: XR elbow complete LT; elbow was examined in AP, lateral, and oblique projections. FINDINGS: There is an anterior fat pad sign involving the elbow joint. However, no evidence of any ac levar osseous pathology, joint dislocation. IMPRESSION: Anterior fat pad sign suggesting joint effusion possibly a underlying occult fracture. Correlate with tenderness consideration for CT at that time should be considered.
[2023-08-08] MEDS: KETOROLAC 15 MG/ML 1 ML VIAL IM STA (19:23)
== END 2023-08-08 19:35 | disposition home or self-care (01) ==
LOC: EC 17:28
DX: S59.902A Unspecified injury of left elbow, initial encounter (principal); J44.9 Chronic obstructive pulmonary disease, unspecified; E11.9 Type 2 diabetes mellitus without complications; E78.5 Hyperlipidemia, unspecified; F41.9 Anxiety disorder, unspecified; F31.9 Bipolar disorder, unspecified; F12.90 Cannabis use, unspecified, uncomplicated; F17.290 Nicotine dependence, other tobacco product, uncomplicated; Z79.4 Long term (current) use of insulin; Z79.84 Long term (current) use of oral hypoglycemic drugs; Z79.899 Other long term (current) drug therapy; W01.0XXA Fall on same level from slipping, tripping and stumbling without subsequent striking against object, initial encounter
CPT/HCPCS: 73080; 29125; 96372; 99284; J1885

== ENCOUNTER 2023-09-29 01:38 | Emergency (ER) | payer OTHER ==
[2023-09-29 02:03] VITALS: BP 137/86; RESP 18
[2023-09-29 02:56] LABS: Glucose,Whole Blood 186 mg/dL (70-110)
--- NOTE | 2023-09-29 03:19 | ED ---
General Adult HPI - General Chief complaint: Upper Respiratory Infection Stated complaint: Back pain Time Seen by Provider: 09/29/23 02:10 Source: patient Mode of arrival: ambulatory Limitations: no limitations - History of Present Illness Initial comments: 63-year-old female presenting with chief complaint of bodyaches. Patient reports diffuse bodyaches, with lower back pain in particular. No loss of bowel or bladder control or saddle paresthesia. Patient has history of lower back pain. No radiculopathy. No new injury or trauma. Patient also admits to headache. Patient has history of headaches and states that this feels similar. No vision or hearing changes, vomiting, numbness, tingling, weakness. Patient also admits to cough and congestion. No fevers. No chest pain or difficulty breathing. No abdominal pain. - Related Data Home Medications Medication Instructions Recorded Confirmed Ergocalciferol (Vitamin D2) 1,250 mcg PO WE@0800 10/04/22 10/27/22 [Drisdol (50,000 Iu)] Insulin Glargine,Hum.rec.anlog 16 units SQ HS@209910/04/22 10/27/22 [Lantus Solostar Pen] Lipase/Protease/Amylase [Zenpep Dr 2 cap PO TID@0800,1700,209910/04/22 10/27/22 5,000 Unit Capsule] metFORMIN HCL ER [Glucophage XR] 1,000 mg PO BID@0800,1700 10/04/22 10/27/22 sitaGLIPtin [Januvia] 100 mg PO DAILY@0800 10/04/22 10/27/22 OLANZapine [ZyPREXA] 5 mg PO HS@209910/18/22 10/27/22 clonazePAM [KlonoPIN] 1 mg PO TID@0800,1600,209910/18/22 10/27/22 glipiZIDE XL [Glucotrol XL] 20 mg PO W/BRKFST 10/18/22 10/27/22 hydrOXYzine pamoate [Vistaril] 100 mg PO HS@199910/18/22 10/27/22 lamoTRIgine 200 mg PO DAILY@0800 10/18/22 10/27/22 Previous Rx's Medication Instructions Recorded ARIPiprazole IM SYRINGE [Abilify 400 mg IM Q28D #1 each 10/11/22 Maintena Syringe] Albuterol Inhaler [Ventolin Hfa 2 puff INHALATION RT-QID PRN each 10/11/22 Inhaler] Nicotine Gum (Polacrilex) 2 mg BUCCAL Q2HR PRN 30 Days #360 10/11/22 [Nicorette] pieceofgum Divalproex ER [Depakote ER] 500 mg PO HS #30 tab 10/20/22 Aspirin EC [Ecotrin Low Dose] 81 mg PO DAILY #30 tab 10/28/22 Pantoprazole Sodium [Protonix] 40 mg PO DAILY #30 tab 10/28/22 Ibuprofen [Motrin] 600 mg PO Q8HR PRN #20 tab 01/12/23 Lidocaine 5% Patch [Lidoderm 5% 1 patch TOPICAL DAILY #7 patch 01/12/23 Patch] Ketorolac [Toradol] 10 mg PO Q6HR #15 tab 07/27/23 Ketorolac [Toradol] 10 mg PO Q8HR #15 tab 08/03/23 Cephalexin [Keflex] 500 mg PO Q12HR 7 Days #14 cap 09/29/23 Allergies Allergy/AdvReac Type Severity Reaction Status Date / Time No Known Allergies Allergy Verified 09/29/23 01:42 Review of Systems ROS Statement: Those systems with pertinent positive or pertinent negative responses have been documented in the HPI. ROS Other: All systems not noted in ROS Statement are negative. 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 6, chronic bronchitis recent fall with 7 left rib fractures, hematoma to right forehead in past, History of Any Multi-Drug Resistant Organisms: MRSA Date of last positivie culture/infection: 10/20/21 MDRO Source:: Head Past Surgical History: Appendectomy Additional Past Surgical History / Comment(s): CYST REMOVED FROM NECK, RT 3RD/4TH FINGER PARTIAL AMP D/T INJURY, lt ureter stent, COLONOSCOPY/POLYPECTOMY Past Anesthesia/Blood Transfusion Reactions: No Reported Reaction, Motion Sickness, Postoperative Nausea & Vomiting (PONV) Past Psychological History: Anxiety, Bipolar, Depression, PTSD, Schizophrenia Smoking Status: Current every day smoker, Vaper Past Alcohol Use History: None Reported Past Drug Use History: Marijuana, Methamphetamine, Prescription Drug Abuse - Past Family History Father Family Medical History: Liver Disease Additional Family Medical History / Comment(s): Father at age 78 from cirrhosis of the liver. Mother Family Medical History: No Reported History Additional Family Medical History / Comment(s): Mother is alive in her 80s Sister(s) Family Medical History: Coronary Artery Disease (CAD) Additional Family Medical History / Comment(s): Patient has 2 sisters and one has from an overdose. She has 1 brother with no major medical problems. 4cm aortic aneurysm General Exam Limitations: no limitations General appearance: alert, in no apparent distress Head exam: Present: atraumatic, normocephalic Eye exam: Present: normal appearance ENT exam: Present: mucous membranes moist Neck exam: Present: normal inspection. Absent: meningismus Respiratory exam: Present: normal lung sounds bilaterally. Absent: respiratory distress, wheezes, rales, rhonchi, stridor Cardiovascular Exam: Present: regular rate, normal rhythm, normal heart sounds. Absent: systolic murmur, diastolic murmur, rubs, gallop, clicks Neurological exam: Present: alert, oriented X3 Psychiatric exam: Present: normal affect, normal mood Skin exam: Present: warm, dry Course Vital Signs 09/29/23 09/29/23 09/29/23 01:39 02:07 04:31 Temperature 97.7 F Pulse Rate 54 L 88 86 Respiratory 18 18 Rate Blood Pressure 137/86 O2 Sat by Pulse 100 98 96 Oximetry Medical Decision Making - Medical Decision Making Was pt. sent in by a medical professional or institution (, PA, DROP BOARD WORKER, urgent care, hospital, or group home...) When possible be specific @ -No Did you speak to anyone other than the patient for history (EMS, parent, family, police, friend...)? What history was obtained from this source @ -No Did you review nursing and triage notes (agree or disagree)? Why? @ -I reviewed and agree with nursing and triage notes Were old charts reviewed (outside hosp., previous admission, EMS record, old EKG, old radiological studies, urgent care reports/EKG's, group home records)? Report findings @ -No old charts were reviewed Differential Diagnosis (chest pain, altered mental status, abdominal pain women, abdominal pain men, vaginal bleeding, weakness, fever, dyspnea, syncope, headache, dizziness, GI bleed, back pain, seizure, CVA, palpatations, mental health, musculoskeletal)? @ -Differential includes influenza, RSV, COVID, UTI, hypoglycemia, pneumonia, other viral illness, this is not an all-inclusive list EKG interpreted by me (3pts min.). @ -As above X-rays interpreted by me (1pt min.). @ -None done CT interpreted by me (1pt min.). @ -None done U/S interpreted by me (1pt. min.). @ -None done What testing was considered but not performed or refused? (CT, X-rays, U/S, labs)? Why? @ -None What meds were considered but not given or refused? Why? @ -None Did you discuss the management of the patient with other professionals (professionals i.e. , PA, DROP BOARD WORKER, lab, RT, psych nurse, social work associate, environmental services worker, teacher, commanding officer garage, case sealer)? Give summary @ -No Was smoking cessation discussed for >3mins.? @ -No Was critical care preformed (if so, how long)? @ -No Were there social determinants of health that impacted care today? How? (Homelessness, low income, unemployed, alcoholism, drug addiction, transportation, low edu. Level, literacy, decrease access to med. care, retirement, rehab)? @ -No Was there de-escalation of care discussed even if they declined (Discuss DNR or withdrawal of care, Hospice)? DNR status @ -No What co-morbidities impacted this encounter? (DM, HTN, Smoking, COPD, CAD, Cancer, CVA, ARF, Chemo, Hep., AIDS, mental health diagnosis, sleep apnea, morbid obesity)? @ -None Was patient admitted / discharged? Hospital course, mention meds given and route, prescriptions, significant lab abnormalities, going to OR and other pertinent info. @ -63-year-old female presenting with chief complaint of bodyaches, headache, and congestion. History and physical exam are conducted. She is negative for influenza, RSV, COVID. Urine shows moderate leukocytes with 8 WBCs and occasional bacteria. Patient does admit to some dysuria. She will be treated for UTI with Keflex. Discharged home. Follow-up with PCP. Report back to ER with any new or worsening symptoms. Discussed return parameters and answered all questions. Patient conveyed verbal understanding and agreed to the plan. I discussed this case in detail with my attending Dr. Hale Undiagnosed new problem with uncertain prognosis? @ -No Drug Therapy requiring intensive monitoring for toxicity (Heparin, Nitro, Insulin, Cardizem)? @ -No Were any procedures done? @ -No Diagnosis/symptom? @ -UTI Acute, or Chronic, or Acute on Chronic? @ -Acute Uncomplicated (without systemic symptoms) or Complicated (systemic symptoms)? @ -Uncomplicated Side effects of treatment? @ -No Exacerbation, Progression, or Severe Exacerbation? @ -No Poses a threat to life or bodily function? How? (Chest pain, USA, IA, pneumonia, PE, COPD, DKA, ARF, appy, cholecystitis, CVA, Diverticulitis, Homicidal, Suicidal, threat to staff... and all critical care pts) @ -Low likelihood - Lab Data Lab Results 09/29/23 09/29/23 09/29/23 Range/Units 02:46 02:50 02:53 POC Glucose (mg/dL) 186 H (70-110) mg/dL POC Glu Furniture Arranger ID Kiara Almendarez Urine Color Colorless Urine Appearance Clear (Clear) Urine pH 5.5 (5.0-8.0) Ur Specific [place] 1.010 (1.001-1.035) Urine Protein Negative (Negative) Urine Glucose (UA) Negative (Negative) Urine Ketones Negative (Negative) Urine Blood Trace H (Negative) Urine Nitrite Negative (Negative) Urine Bilirubin Negative (Negative) Urine Urobilinogen <2.0 (<2.0) mg/dL Ur Leukocyte Esterase Moderate H (Negative) Urine RBC <1 (0-5) /hpf Urine WBC 8 H (0-5) /hpf Urine WBC Clumps Rare H (None) /hpf Ur Squamous Epith Cells 3 (0-4) /hpf Amorphous Sediment Rare H (None) /hpf Urine Bacteria Occasional H (None) /hpf Hyaline Casts 1 (0-2) /lpf Urine Mucus Rare H (None) /hpf Influenza Type A (PCR) Not Detected (Not Detectd) Influenza Type B (PCR) Not Detected (Not Detectd) RSV (PCR) Not Detected (Not Detectd) SARS-CoV-2 (PCR) Not Detected (Not Detectd) Disposition Clinical Impression: UTI (urinary tract infection) Disposition: HOME SELF-CARE Condition: Good Instructions (If sedation given, give patient instructions): Urinary Tract Infection in Women (ED) Additional Instructions: Follow-up with PCP. Report back to ER with any new or worsening symptoms. Prescriptions: Cephalexin [Keflex] 500 mg PO Q12HR 7 Days #14 cap Is patient prescribed a controlled substance at d/c from ED?: No Referrals: Cecilia Cortez MD [Primary Care Provider] - 1-2 days Time of Disposition: 04:21
[2023-09-29 03:22] VITALS: TEMP 97.7
[2023-09-29 03:28] LABS: Amorphous Sediment,Urine Rare /hpf; Appearance,Urine Clear (Clear); Bacteria,Urine Occasional /hpf; Bilirubin,Urine Negative (Negative); Blood,Urine Trace (Negative); Color,Urine Colorless; Glucose,Urine (UA) Negative (Negative); Hyaline Casts,Urine 1 /lpf (0-2); Ketones,Urine Negative (Negative); Leukocyte Esterase,Urine Moderate (Negative); Mucus,Urine Rare /hpf; Nitrite,Urine Negative (Negative); PH, Urine 5.5 (5.0-8.0); Protein,Urine Negative (Negative); RBC,Urine <1 /hpf (0-5); Squamous Epithelial Cell,Urine 3 /hpf (0-4); Urobilinogen,Urine <2.0 mg/dL (<2.0); WBC,Urine 8 /hpf (0-5)
[2023-09-29] MEDS: ACETAMINOPHEN TAB 325 MG TAB PO STA (04:13)
[2023-09-29] MEDS: IBUPROFEN 600 MG TAB PO STA (04:14)
[2023-09-29 04:43] VITALS: PULSE 86
== END 2023-09-29 04:31 | disposition home or self-care (01) ==
LOC: EC 01:38
DX: N39.0 Urinary tract infection, site not specified (principal); R51.9 Headache, unspecified; R05.9 Cough, unspecified; R09.81 Nasal congestion; F17.290 Nicotine dependence, other tobacco product, uncomplicated
CPT/HCPCS: 36415; 81001; 87636; 99283

== ENCOUNTER → 2024-01-18 | Outpatient (CLI) | payer OTHER ==
--- NOTE | 2024-01-18 14:20 | XR ---
EXAMINATION TYPE: XR chest 2V DATE OF EXAM: 01/18/2024 COMPARISON: NONE TECHNIQUE: PA and lateral views submitted. HISTORY: Heart murmur FINDINGS: The lungs are clear and there is no pneumothorax, pleural effusion, or focal pneumonia. Heart size normal and no overt failure. Osseous structures demonstrate hypertrophic and degenerative changes of the spine. Remote left-sided rib fractures. Generalized osteopenia. Deformity involving the posterior right rib cage. IMPRESSION: 1. No acute process.
== END | disposition home or self-care (01) ==
LOC: RADXRWHC 14:01
PROVIDERS: ATTEND Nurse Practitioner Family
DX: R01.1 Cardiac murmur, unspecified (principal)
CPT/HCPCS: 71046